=== PATIENT | male | born 1965 | race Caucasian/White ===

== ENCOUNTER → 2019-07-26 19:58 | Outpatient (CLI) | payer OTHER, SELFPAY | LOC: SL 19:58 | PROVIDERS: Family Provider Family Medicine; PCP Family Medicine | DX: G47.10 Hypersomnia, unspecified (principal); R06.83 Snoring | CPT/HCPCS: 95810 ==

== ENCOUNTER 2019-08-12 00:53 | Emergency (ER) | payer OTHER, SELFPAY ==
[2019-08-12 00:54] VITALS: BP 193/123; PULSE 130; RESP 34; TEMP 37.5; O2SAT 96; BMI 28.3
[2019-08-12 00:58] VITALS: O2SAT 97
[2019-08-12 01:22] VITALS: TEMP 37.2
--- NOTE | 2019-08-12 01:27 | RAD_ITS ---
STUDY: X-RAY CHEST REASON FOR EXAM: Male, 53 years old. CHRONIC SOB -- HX OF COPD TECHNIQUE: PA and lateral views of the chest. COMPARISON: None. FINDINGS: The lungs are normally expanded with the trace amount of fluid within the right minor fissure and subtle airspace disease within the right lower lobe concerning for pneumonia. Remainder of the lung shelton are clear. There is no demonstrated pleural abnormality. Normal size heart. Normal mediastinum and albert. Normal visualized pulmonary arteries. Normal visualized aortic arch and descending thoracic aorta. Normal visualized thoracic spine. Normal visualized ribs, clavicles, and shoulders. There is no demonstrated abnormality of the visualized soft tissue structures of the upper abdomen. RAD/Chest PA and Lateral IMPRESSION: Right infrahilar pneumonia, likely right lower lobe. Clinical correlation recommended. Electronically Signed: Sheri Borden MD at 2:44 EST , Service support ,
[2019-08-12 01:41] LABS: Absolute Lymphocyte Count 0.44 X10^3/uL (0.83-4.51); Absolute Neutrophil Count 10.2 X10^3/uL (2.0-7.7); Basophil# 0.05 X10^3/uL; Basophil% 0.4 % (0-1); Eosinophil# 0.04 X10^3/uL; Eosinophils% 0.3 % (0-5); Hematocrit 45.4 % (40-54); Hemoglobin 15.3 g/dL (13.0-16.5); Lymphocyte # 0.44 X10^3/ul (4.0); Lymphocyte % 3.8 % (19-41); Mean Corp Hgb Conc 33.7 g/dL (32-36); Mean Platelet Vol. 8.8 fl (6.2-12.0); Monocyte# 0.71 X10^3/uL; Monocyte% 6.2 % (0-10); NRBC Flagged by Analyzer 0 % (0-5); Neutrophil # 10.21 X10^3/uL (2.7-7.7); POSITIVE DIFFERENTIAL YES; Platelet Count 375 K/mm3 (150-450); RBC Distribution Width CV 12.4 % (11.6-14.6); RBC Distribution Width SD 43.6 fl (35.1-43.9); Red Blood Count 4.78 M/mm3 (4.6-6.2); White Blood Count 11.5 K/mm3 (4.4-11.0)
[2019-08-12 01:46] LABS: Differential Indicated SCAN CRITERIA MET
--- NOTE | 2019-08-12 01:52 | ED.DCSUM_ITS ---
- ER Visit Summary Date of Service: 08/12/19 Chief Complaint: Shortness of breath History of Present Illness: The patient is a 53 M who presents with shortness of breath that has been gradually getting worse over the past 3 weeks. Patient has been to the urgent care twice for this. Patient states the first time he was put on prednisone which made things worse. Patient states the second time he was given albuterol aerosols which also made his breathing worse. Patient states his breathing is worse with any exertion and also with lying flat on his back. Patient admits to a cough with some sputum production. Patient does not know the color of the sputum. Patient also admits to some rhinorrhea and sore throat. Physical Examination: Vital signs show an elevated blood pressure of 193/123 with a tachycardia of 130 and a tachypnea of 34. Pulse oximeter is 97% on nasal cannula. Patient is afebrile. Oral mucosa is pink and moist. Neck is supple. Trachea is midline. There is no JVD. Heart was regular rate and rhythm. Lungs were diminished bilaterally. There is adequate respiratory effort. There are no retractions noted. Abdomen is soft. Bowel sounds are normal. There is no tenderness. Cranial nerves II through XII are intact. There are no focal motor or sensory deficits noted. Test Results: EKG showed sinus tachycardia with a rate of 120. There are no acute ST or T wave changes. CBC shows a mild leukocytosis of 11.5. Comprehens teja metabolic profile was essentially within normal limits. Troponin was normal. Influenza swab was positive for influenza A. Emergency Department Course and Treatment: Since the patient stated that aerosols make his breathing worse, he was not given any aerosols here. Patient maintains oxygen saturation of 92% on room air. Patient was given a dose of Tamiflu and a dose of Levaquin here. Patient was given prescriptions for the same. Patient was instructed to follow-up with his primary care physician in 5 to 7 days. Patient understood and was agreeable with the plan. All questions were answered. Disposition: Discharge home Impression: 1. Pneumonia 2. Influenza A This note was generated with [employer] software. It may contain incorrect words, spelling, and punctuation that were not noted in review of the chart prior to signing ED Disposition - Plan for ED Patient: Disposition: Home or Assisted Living Diagnosis: Pneumonia, Influenza A Instructions: INFLUENZA (Adult), PNEUMONIA (Adult) Prescriptions: Levofloxacin [Levaquin] 750 mg PO DAILY #6 tab Prescription Printed Oseltamivir Phosphate [Tamiflu] 75 mg PO BID #10 cap Prescription Printed Referrals: Ata Avelar MD [Primary Care Provider] - 5-7 Days
[2019-08-12 02:03] LABS: ALB/GLOB Ratio 0.8 RATIO (0.9-2.4); AST(SGOT) 32 U/L (15-37); Alanine Aminotransfer ALT/SGPT 76 U/L (16-61); Albumin, Serum 3.7 g/dL (3.2-5.0); Alkaline Phosphatase 86 U/L (45-117); Anion Gap 7 (5-15); BUN 9 mg/dL (7-18); BUN/Creat Ratio 9.4 RATIO (10-20); Calcium,Total 9.8 mg/dL (8.5-10.1); Chloride 99 mmol/L (98-107); Creatinine, Serum 0.96 mg/dL (0.70-1.30); EST Glomerular Filtration Rate 88 mL/min (>60); Est Glom Filt Rate - Afr Amer 106 mL/min (>60); Estimated Creatinine Clearance 79.19 ml/min; Globulin 4.6 g/dL (2.2-4.2); Glucose 141 mg/dL (74-106); Protein, Total 8.3 g/dL (6.4-8.2); Sodium Level 134 mmol/L (136-145)
[2019-08-12 02:05] VITALS: BP 159/103; O2SAT 99
[2019-08-12 02:07] LABS: Differential Comment SCANNED
[2019-08-12] MEDS: Oseltamivir Phosphate 75 MG Capsule PO (02:09)
[2019-08-12] MEDS: levoFLOXacin 750 MG Tablet PO (03:06)
[2019-08-12 03:07] VITALS: BP 136/90; PULSE 117; RESP 16; O2SAT 92
[2019-08-12 03:13] VITALS: BP 136/90; PULSE 78; RESP 17; O2SAT 92
--- NOTE | 2019-08-12 13:52 | EKG12_ITS ---
Test Reason : SOB Blood Pressure : / mmHG Vent. Rate : 120 BPM Atrial Rate : 120 BPM P-R Int : 138 ms QRS Dur : 082 ms QT Int : 304 ms P-R-T Axes : 079 064 060 degrees QTc Int : 429 ms Sinus tachycardia Otherwise normal ECG Confirmed by NICOLETTE COONEY MD ([id number]), associate entertainment editor FLAQUITO WILLIAMSON ([id number]) on 08/14/2019 1:01:57 PM Referred By: TONEY Confirmed By:NICOLETTE COONEY MD
== END 2019-08-12 03:29 | disposition home or self-care (01) ==
PROVIDERS: Emergency Provider Emergency Medicine; PCP Family Medicine
DX: J18.9 Pneumonia, unspecified organism (principal); J10.1 Influenza due to other identified influenza virus with other respiratory manifestations; Z87.891 Personal history of nicotine dependence
CPT/HCPCS: 71046; 80053; 84484; 85025; 87804; 93005; 99285; A4216

== ENCOUNTER 2019-08-25 18:04 | Inpatient (IN) | payer OTHER, SELFPAY ==
[2019-08-25] VITALS (13 sets, daily range): BP systolic 129–138; BP diastolic 84–96; PULSE 94–110; RESP 12–31; TEMP 36.4–36.9; O2SAT 92–97; BMI 25.6; BMI 25.7
--- NOTE | 2019-08-25 19:05 | EKG12_ITS ---
Test Reason : SOB Blood Pressure : / mmHG Vent. Rate : 098 BPM Atrial Rate : 098 BPM P-R Int : 136 ms QRS Dur : 082 ms QT Int : 332 ms P-R-T Axes : 075 073 055 degrees QTc Int : 423 ms Normal sinus rhythm Normal ECG Confirmed by SARAY PEACE ([id number]), editor at large WILL MCNEILL ([id number]) on 08/27/2019 1:57:59 PM Referred By: HUMBERTO SUTTON Confirmed By:SARAY PEACE
[2019-08-25 19:14] LABS: Absolute Lymphocyte Count 1.13 X10^3/uL (0.83-4.51); Absolute Neutrophil Count 6.9 X10^3/uL (2.0-7.7); Basophil# 0.04 X10^3/uL; Basophil% 0.5 % (0-1); Eosinophil# 0.01 X10^3/uL; Eosinophils% 0.1 % (0-5); Hemoglobin 16.5 g/dL (13.0-16.5); Lymphocyte # 1.13 X10^3/ul (4.0); Lymphocyte % 13.2 % (19-41); Mean Corp Hgb Conc 33.7 g/dL (32-36); Mean Corpuscular Hgb 32.1 pg (27.0-32.0); Mean Corpuscular Volume 95.3 fL (80-94); Mean Platelet Vol. 9.1 fl (6.2-12.0); Monocyte# 0.43 X10^3/uL; NRBC Flagged by Analyzer 0 % (0-5); Neutrophil % 80.8 % (47-70); Platelet Count 352 K/mm3 (150-450); RBC Distribution Width CV 12.2 % (11.6-14.6); RBC Distribution Width SD 43.4 fl (35.1-43.9); Red Blood Count 5.14 M/mm3 (4.6-6.2); White Blood Count 8.5 K/mm3 (4.4-11.0)
[2019-08-25] MEDS: Albuterol 2.5 MG/3 ML VIAL.NEB. INHALATION ×3 (19:26→21:37)
[2019-08-25] MEDS: Ipratropium/Albuterol Sulfate 3 ML AMPUL.NEB INHALATION (19:26)
[2019-08-25 19:28] LABS: Lactic Acid 1.4 mmol/L (0.4-1.9)
[2019-08-25 19:30] LABS: Anion Gap 8 (5-15); BUN 14 mg/dL (7-18); BUN/Creat Ratio 12.5 RATIO (10-20); Calcium,Total 8.7 mg/dL (8.5-10.1); Chloride 104 mmol/L (98-107); Creatinine, Serum 1.12 mg/dL (0.70-1.30); EST Glomerular Filtration Rate 73 mL/min (>60); Est Glom Filt Rate - Afr Amer 89 mL/min (>60); Estimated Creatinine Clearance 67.88 ml/min; Glucose 137 mg/dL (74-106); Potassium 4.3 mmol/L (3.5-5.1); Sodium Level 141 mmol/L (136-145)
[2019-08-25] MEDS: 0.9% Normal Saline 1,000 ML 150 ML IV (19:39)
[2019-08-25] MEDS: MethylPREDNISolone 125 MG/2 ML Vial IV (19:39)
--- NOTE | 2019-08-25 19:50 | RAD_ITS ---
STUDY: X-RAY CHEST REASON FOR EXAM: Male, 53 years old. EXTREME DYSPNEA. HX OF COPD. TECHNIQUE: 2 views COMPARISON: Prior chest radiograph of August 12, 2019 FINDINGS: Negative for pneumothorax or pleural effusion. Hyperexpansion increased from prior exam. Negative for new consolidation, focal atelectasis or mass density. Normal size heart. Normal mediastinum and albert. Normal visualized pulmonary arteries. Normal visualized aortic arch and descending thoracic aorta. Mild degenerative changes of the thoracic spine. Normal visualized ribs, clavicles, and shoulders. There is no demonstrated abnormality of the visualized soft tissue structures of the upper abdomen. RAD/Chest PA and Lateral IMPRESSION: Increased hyperexpansion and generalized findings of COPD without new consolidation, focal atelectasis, pleural effusion or cardiomegaly. Electronically Signed: Shona Contreras MD at 20:30 EST , Service support ,
--- NOTE | 2019-08-25 21:15 | PCM.HP.STD ---
Problem List (1) COPD exacerbation Status: Acute History of Present Illness Date of Admission: 08/25/19 Chief Complaint: sob The patient is a 53 year old M with a significant history of former smoker; COPD and who was diagnosed with influenza A and pneumonia about 2 weeks ago and was on Tamiflu and Levaquin presenting with persistent shortness of breath. Per patient has been off work for about 3 weeks because of symptoms above. Associated with symptoms is productive cough of yellowish sputum; and wheezes. At the emergency department because patient was having increased work of breathing he was placed on BiPAP. Past Medical History Medical History: Medical History (Last Updated 08/26/19 @ 02:[address] Braeden Craig MD) COPD (chronic obstructive pulmonary disease) (Chronic) J44.9 Allergies codeine Allergy (Verified 08/25/19 18:06) Unknown Penicillins Allergy (Verified 08/25/19 18:06) Unknown Home Medications: Ambulatory Orders Medication Instructions Recorded Aspirin 325 mg PO DAILY 06/30/15 Albuterol Inhaler [Ventolin Hfa 1 puff INHALATION Q6H PRN PRN 01/05/16 (SP)] Blue-Green Algae [Spirulina] 500 mg PO DAILY 01/05/16 Diphenhydramine HCl [Benadryl 25 mg PO QHS 01/05/16 Allergy] Ginkgo Biloba 120 mg PO DAILY 01/05/16 Umeclidinium Brm/Vilanterol Tr 1 each IH DAILY 01/05/16 [Anoro Ellipta 62.5-25 Mcg INH] Fluticasone/Umeclidin/Vilanter 1 ea IH DAILY 08/25/19 [Trelegy Ellipta 100-62.5-25] Ginseng 250 mg PO DAILY 08/25/19 Guaifenesin [Mucinex] 1,200 mg PO BID 08/25/19 Multivitamin [Once Daily] 1 ea PO DAILY 08/25/19 Mv-Min/Vit C/Glut/Lysine/Hc124 1 ea PO DAILY 08/25/19 [Airborne Tablet Chewable] Nicotine Polacrilex [Nicorette] 2 mg BC DAILY PRN 08/25/19 Omeprazole 40 mg PO DAILY 08/25/19 Prednisone 10 mg PO DAILY 08/25/19 Surgical History: - - Surgery for brain aneurysm repair. Lives: Spouse/ Significant Other Smoking Status: Former smoker Alcohol: Occasional - *Family History Maternal History Items: Diabetes, - - His mother had hearing loss. Paternal History Items: - - Denies any pertinent medical history. Review of Systems Constitutional: Denies: Chills, Fever, Weight Change HEENT: Denies: Head Aches, Sinus Congestion, Sinus Drainage Cardiovascular: Denies: Chest Pain, Palpitations Respiratory: Reports: Cough, Shortness of Breath, Sputum production, Wheezing Gastrointestinal: Denies: Abdominal Pain, Nausea, Vomiting Genitourinary: Denies: Dysuria Musculoskeletal: Denies: Joint Pain, Joint Tenderness Skin: Denies: Rash, Wounds Neurological: Denies: Numbness, Tingling, Focal weakness Psychiatric: Denies: Anxiety, Depression, Homicidal Ideations, Suicidal Ideations Hematologic/ Lymphatic: Denies: Easy Bruising, Easy Bleeding VTE Information - Inpt Only VTE Present on Admission: No VTE Mechan Device Prophylaxis: None VTE Pharm Prophylaxis ordered?: Yes Patient Problems: Active and Suspected Problems COPD exacerbation (Acute) - Physical Exam Vitals/I&O's: Vital Signs Temp Pulse Resp BP Pulse Ox 98.3 F 98 26 H 129/96 H 97 08/25/19 20:34 08/25/19 20:34 08/25/19 20:34 08/25/19 20:34 08/25/19 20:34 Oxygen Flow Rate (L/min) 4 Oxygen Delivery Method Bi-pap Weight: 69.853 kg Body Mass Index (BMI) 25.6 General: Alert, Oriented x3, Cooperative HEENT: Atraumatic, PERRLA, EOMI, Normocephalic Neck: Supple, No JVD, Negative Carotid Bruits, Trachea Midline Lungs: Diminished, Using Accessory Muscles, - - On BiPAP at the time of examination. Cardiovascular: Regular rate, Normal S1, Normal S2, No murmurs Abdomen: Bowel Sounds Present, Soft, Non Tender Extremities: No edema, Capillary Refill Less than 3 Seconds Skin: No rashes, No breakdown Musculoskeletal: No Tenderness to Palpation of Joints or Extremities Neurological: Cranial nerves II-XII grossly intact Psych/Mental Status: Anxious Laboratory Results 08/25/19 18:16: WBC 8.5, RBC 5.14, Hgb 16.5, Hct 49.0, MCV 95.3 H, MCH 32.1 H, MCHC 33.7, RDW Std Deviation 43.4, RDW Coeff of [place] 12.2, Plt Count 352, MPV 9.1, Immature Gran % (Auto) 0.400, Neut % (Auto) 80.8 H, Lymph % (Auto) 13.2 L, [place] % (Auto) 5.0, Eos % (Auto) 0.1, Baso % (Auto) 0.5, Absolute Neuts (auto) 6.9, Absolute Lymphs (auto) 1.13, Nucleated RBC % 0 08/25/19 18:16: Sodium 141, Potassium 4.3, Chloride 104, Carbon Dioxide 29.0, Anion Gap 8, BUN 14, Creatinine 1.12, Estim Creat Clear Calc 67.88, Est GFR (MDRD) Af Amer 89, Est GFR (MDRD) Non-Af 73, BUN/Creatinine Ratio 12.5, Glucose 137 H, Calcium 8.7, Troponin I < 0.015 08/25/19 18:16: Lactic Acid 1.4 Current Medications Sodium Chloride () 1,000 mls @ 150 mls/hr IV .Q6H40M ONE Stop: 08/26/19 01:43 Last Admin: 08/25/19 19:39 Dose: 150 mls/hr Documented by: Assessment/Plan All Active Problems COPD exacerbation (Acute) The patient is a 53 year old M with a significant history of former smoker; and COPD and who was diagnosed with influenza A and pneumonia about 2 weeks ago and was on Tamiflu and Levaquin presenting with persistent shortness of breath; wheezes productive cough yellow sputum and requiring BiPAP consistent with acute respiratory failure secondary to exacerbation of COPD. Acute respiratory failure secondary to exacerbation of COPD. Impression of chest x-ray: Increased hyperexpansion and generalized findings COPD without new consolidation, focal atelectasis, pleural effusion or cardiomegaly. Chest x-ray was independently reviewed. I agree with the radiologist interpretation. Scheduled DuoNeb Albuterol as needed Solu-Medrol scheduled. Hold home prednisone. Azithromycin ordered Continue BiPAP. Get ABG. Monitor BMP and CBC Admission is continued DVT prophylaxis Subcutaneous Lovenox Code Visit Inpatient E&M: 22085 Init Hosp L3
--- NOTE | 2019-08-25 21:27 | ED.VISSUMM ---
- ER Visit Summary Date of Service: 08/25/19 Chief Complaint: Hartness of breath] History of Present Illness: The patient is a 53 M [presents the emergency department complaint shortness of breath that started 2 weeks ago. Patient states that he was treated for pneumonia and influenza 3 weeks ago and was on Tamiflu as well as Levaquin. Patient does not feel like he is got much better states that initially he was better for the first 3 or 4 days but then his symptoms of dyspnea continue to worsen. Patient states he cannot walk 110 feet without feeling extremely short of breath. Patient continues to have a cough that is mostly nonproductive at this point. At times he will have small amount of yellow phlegm. He does have history of COPD. He is not on home oxygen. Patient does see a transit mix operator by the name of Dr. Langley. Patient denies recent travel or surgery. Denies PE risk factors.] Physical Examination: [HEENT-PERRLA, EOMI. Cranial nerves II through XII grossly intact. TMs clear. Mucous membranes moist. No adenopathy. Cardiovascular-regular and tachycardic. No murmurs auscultated. Lungs-diminished bilaterally with faint expiratory wheezes bilaterally. Patient is tachypneic. Patient has conversational dyspnea. Abdomen-normoactive bowel sounds, soft, nontender, no rebound or rigidity, no peritoneal signs. Extremities-intact ?4, normal range of motion, normal pulses, atraumatic] Test Results: [EKG obtained arrival shows sinus rhythm with a ventricular rate of 98 bpm with no acute ST segment changes. CBC with differential showed a white count of 8.5, hemoglobin 16, hematocrit 49, platelets 352. Chemistries unremarkable. Troponin is less than 0.015. Lactate was 1.4. Chest x-ray showed COPD without evidence of consolidation.] Emergency Department Course and Treatment: [He was treated with DuoNeb aerosol and albuterol aerosols. Patient was given Solu-Medrol 125 mg IV. Patient's dyspnea continued to worsen and he was placed on BiPAP. Patient symptoms improve dramatically with the BiPAP.] Treatment Plan: [Admit] Disposition: [Admit] Impression: [COPD exacerbation] Respiratory distress This note was generated with [employer] dictation software. It may contain incorrect words, spelling, and punctuation that were not noted in review of the chart prior to signing ED Disposition - Plan for ED Patient: Referrals: Ata Avelar MD [Primary Care Provider] -
[2019-08-25] MEDS: LORazepam 2 MG/ML Syringe 1 MG IV (21:52)
[2019-08-25] MEDS: DiphenhydrAMINE 25 MG Capsule PO (23:35)
[2019-08-25] MEDS: guaiFENesin 1,200 MG Tablet 1200 MG PO (23:35)
[2019-08-25 23:40] LABS: Allen Test POS; Base Excess 2 mmol/L (-2 to +2); Bicarbonate 27.7 mmol/L (22-26); Blood Gas Specimen Type ART; O2 Delivery Device Nasal Can; PO2 80 mmHG (75-100); SITE R Radial; SO2 95 % (95-99); Time Given 2330; Total Carbon Dioxide 29 mmol/L; pCO2 47.4 mmHg (35-45); pH 7.37 (7.35-7.45)
[2019-08-26] VITALS (17 sets, daily range): BP systolic 129–133; BP diastolic 73–95; PULSE 84–115; RESP 12–26; TEMP 36.7–36.9; O2SAT 94–98
[2019-08-26] MEDS: 0.9% Saline Lock 10 ML Syringe IV ×3 (06:12→21:06)
[2019-08-26] MEDS: Ipratropium/Albuterol Sulfate 3 ML AMPUL.NEB INHALATION ×5 (07:14→22:56)
[2019-08-26 07:21] LABS: Absolute Lymphocyte Count 0.75 X10^3/uL (0.83-4.51); Absolute Neutrophil Count 7.2 X10^3/uL (2.0-7.7); Basophil# 0.01 X10^3/uL; Basophil% 0.1 % (0-1); Hematocrit 44.1 % (40-54); Hemoglobin 14.7 g/dL (13.0-16.5); Lymphocyte # 0.75 X10^3/ul (4.0); Lymphocyte % 9.1 % (19-41); Mean Corp Hgb Conc 33.3 g/dL (32-36); Mean Corpuscular Hgb 32.2 pg (27.0-32.0); Mean Corpuscular Volume 96.5 fL (80-94); Mean Platelet Vol. 8.7 fl (6.2-12.0); Monocyte# 0.24 X10^3/uL; Monocyte% 2.9 % (0-10); NRBC Flagged by Analyzer 0 % (0-5); Neutrophil # 7.22 X10^3/uL (2.7-7.7); Neutrophil % 87.5 % (47-70); Platelet Count 285 K/mm3 (150-450); RBC Distribution Width CV 12.2 % (11.6-14.6); RBC Distribution Width SD 43.6 fl (35.1-43.9); Red Blood Count 4.57 M/mm3 (4.6-6.2); White Blood Count 8.3 K/mm3 (4.4-11.0)
[2019-08-26 07:49] LABS: Anion Gap 5 (5-15); BUN 12 mg/dL (7-18); BUN/Creat Ratio 12.5 RATIO (10-20); Calcium,Total 8.2 mg/dL (8.5-10.1); Chloride 105 mmol/L (98-107); Creatinine, Serum 0.96 mg/dL (0.70-1.30); EST Glomerular Filtration Rate 88 mL/min (>60); Est Glom Filt Rate - Afr Amer 106 mL/min (>60); Estimated Creatinine Clearance 79.19 ml/min; Glucose 137 mg/dL (74-106); Potassium 4.6 mmol/L (3.5-5.1); Sodium Level 140 mmol/L (136-145)
[2019-08-26] MEDS: guaiFENesin 1,200 MG Tablet 1200 MG PO ×2 (08:25→21:04)
[2019-08-26] MEDS: LORazepam 1 MG Tablet PO ×2 (08:25→18:39)
[2019-08-26] MEDS: Pantoprazole Sodium 40 MG Tablet PO (08:26)
[2019-08-26] MEDS: Aspirin 325 MG Tablet PO (08:26)
[2019-08-26] MEDS: Multivitamins,Therapeutic Tablet 1 TABLET PO (08:26)
[2019-08-26] MEDS: Enoxaparin 40 MG/0.4 ML Syringe SC (08:27)
--- NOTE | 2019-08-26 13:55 | CASEMGMT ---
RN CM Assessment Introduced role of RN CM to patient and patient Sirisha at bedside.? Patient is alert, oriented and able?to participate in RN CM Assessment. ?Care providers, pharmacy, and demographics verified. Presentation: Dz with Influenza A & PNA approx 2weeks ago, on Tamiflu. CC: Increased work of breathing, productive cough, wheezes. 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 This securities underwriter explained qualifying home O2 criteria and provided an in network list of DME companies. States [facility] as a preference. Made aware not sure if his insurance would cover the Inogen and he would have to s/w his litigation support analyst and DME company to see if he qualifies. States smoked since 15yo approx 1/2PPD-3PPD. Quit 5-6years ago. PCP: Ata Avelar Specialists: Puldavin MADDOX Preferred Pharmacy: [facility] Insurance: MMO Rx Benefit: Yes? ?LNOK: Sirisha Duke LW/HPOA: None, states would like both information and to complete advanced directives during this admission. Information with rack card provided. ELODIA Jimenez made aware. Living Arrangements:? Lives with and 18yo Dtr in a 2SH. Bedroom on first fl. 3 steps to enter home. ADL?s: Independently with ambulation and ADLs Transportation: Both patient and drive DME: None HHC: Past SNF: None Goal: Home and possible home O2, see above issue. Denies any further needs, concerns, issues or questions with DC planning at this time. Aware CM remains available for any emerging needs. DC PLAN: Home with possible home O2. ROCHELLE Cohen
--- NOTE | 2019-08-26 14:36 | CASEMGMT ---
Social Work SW met with pt and assisted pt in completing health care power of mergers and acquisitions attorney in which he named his . SW discussed Living will with pt and he is uncertain if he wants to complete this at this time. SW left pt with written information regarding the Living Will. Copy of HCPOA placed on chart and original given to pt. YULI Ballesteros
[2019-08-26 19:36] LABS: Bedside Glucose 214 mg/dL (70-110)
--- NOTE | 2019-08-26 19:37 | PN_ITS ---
Patient Problems: Active and Suspected Problems (Last Updated 08/26/19 @ 02:[address] Braeden Craig MD) COPD exacerbation (Acute) Subjective: Patient was seen and examined today, he appears comfortable on nasal cannula oxygen at this time. Patient has no complaints of any chest discomfort or increased shortness of breath. - Physical Exam Vitals/I&O's: Vital Signs Temp Pulse Resp BP Pulse Ox 98.5 F 112 H 26 H 131/75 H 94 08/26/19 16:20 08/26/19 19:12 08/26/19 19:12 08/26/19 16:20 08/26/19 19:14 Oxygen Flow Rate (L/min) 2.5 Oxygen Delivery Method Nasal Cannula Weight: 70.1 kg Body Mass Index (BMI) 25.7 Intake and Output for Last 24 Hours 08/24/19 08/25/19 08/26/19 23:59 23:59 23:59 Intake Total 502.5 / 502.5 1944.75 / 1944. Balance 502.5 / 502.5 / General: Alert, Oriented x3, Cooperative, No apparent distress, Well developed, Well nourished HEENT: Atraumatic, PERRLA, EOMI, Normocephalic Oral: Moist Mucosa Neck: Supple, No JVD, Trachea Midline, Thyroid Normal Size and Texture Lungs: Clear to auscultation, No rhonchi, No wheeze, No rales, Diminished Cardiovascular: Regular rate, Regular Rhythm, Normal S1, Normal S2, No murmurs, PMI Normal, No rub noted, No Gallop Abdomen: Bowel Sounds Present, Soft, Non Tender, Non-Distended Extremities: No clubbing, No cyanosis, No edema, Capillary Refill Less than 3 Seconds Skin: No rashes, No breakdown Musculoskeletal: No Tenderness to Palpation of Joints or Extremities Neurological: Cranial nerves II-XII grossly intact, Neuro grossly intact, Sensory exam intact to light touch and pain, Coordination normal Psych/Mental Status: Normal Affect, Appropriate, Alert and oriented to time, place, person, mood and affect Laboratory Results 08/25/19 23:35: Specimen Type ART, Sample Site R Radial, pH 7.37, Bicarbonate Actual 27.7 H, POC Total CO2 29, Base Excess 2, O2 Saturation 95, ABG pCO2 47.4 H, ABG pO2 80, Sonido Test POS, O2 Delivery Device Nasal Can, Liter Flow 2.0, Blood Gas Notified Whom HOSP , Blood Gas Notified Time 23308/26/19 07:02: WBC 8.3, RBC 4.57 L, Hgb 14.7, Hct 44.1, MCV 96.5 H, MCH 32.2 H, MCHC 33.3, RDW Std Deviation 43.6, RDW Coeff of [place] 12.2, Plt Count 285, MPV 8.7, Immature Gran % (Auto) 0.400, Neut % (Auto) 87.5 H, Lymph % (Auto) 9.1 L, [place] % (Auto) 2.9, Eos % (Auto) 0.0, Baso % (Auto) 0.1, Absolute Neuts (auto) 7.2, Absolute Lymphs (auto) 0.75 L, Nucleated RBC % 0 08/26/19 07:02: Sodium 140, Potassium 4.6, Chloride 105, Carbon Dioxide 30.0, Anion Gap 5, BUN 12, Creatinine 0.96, Estim Creat Clear Calc 79.19, Est GFR (MDRD) Af Amer 106, Est GFR (MDRD) Non-Af 88, BUN/Creatinine Ratio 12.5, Glucose 137 H, Calcium 8.2 L 08/26/19 19:27: POC Glucose 214 H Current Medications Acetaminophen (Tylenol) 650 mg PO Q6H PRN PRN PRN Reason: Pain Score 1-10/Temp > 100.7 F Albuterol Sulfate (Ventolin Aerosols) 2.5 mg INHALATION Q2H PRN PRN PRN Reason: Shortness of Breath/Wheezing Albuterol/Ipratropium (Duoneb) 3 ml INHALATION Q4HWA.RT PENDING SALE TO [facility] Last Admin: 08/26/19 19:12 Dose: 3 ml Documented by: [facility]) [facility] Last Admin: 08/26/19 08:26 Dose: 325 mg Documented by: Diphenhydramine HCl (Benadryl) 25 mg PO QHS PENDING SALE TO [facility] Last Admin: 08/25/19 23:35 Dose: 25 mg Documented by: Enoxaparin Sodium (Lovenox) 40 mg SC DAILY PENDING SALE TO [facility] Last Admin: 08/26/19 08:27 Dose: 40 mg Documented by: Glucagon () 1 mg IM .X1 PRN PRN Reason: Hypoglycemia Guaifenesin (Mucinex) 1,200 mg PO BID PENDING SALE TO [facility] Last Admin: 08/26/19 08:25 Dose: 1,200 mg Documented by: Azithromycin 500 mg/ Dextrose 255 mls @ 250 mls/hr IV Q24@2200 PENDING SALE TO [facility] Stop: 08/27/19 23:02 Last Infusion: 08/26/19 00:45 Dose: Infused Documented by: Dextrose (Dextrose 10%-Water) 250 mls @ 999 mls/hr IV .Q16M PRN; Protocol PRN Reason: HYPOGLYCEMIA Lorazepam (Ativan) 1 mg PO Q8H PRN PRN PRN Reason: ANXIETY Last Admin: 08/26/19 18:39 Dose: 1 mg Documented by: Melatonin (Melatonin) 3 mg PO QHS PRN PRN PRN Reason: INSOMNIA Methylprednisolone (Solu-Medrol) 40 mg IV Q8 PENDING SALE TO [facility] Last Admin: 08/26/19 13:37 Dose: 40 mg Documented by: Multivitamins (Multivitamin) 1 tablet PO DAILYCM PENDING SALE TO [facility] Last Admin: 08/26/19 08:26 Dose: 1 tablet Documented by: Nutritional Formula (Lactose Free) (Ensure Enlive) 120 ml PO 4X/DAY PENDING SALE TO [facility] Last Admin: 08/26/19 17:14 Dose: Not Given Documented by: Ondansetron HCl (Zofran) 4 mg IV Q8H PRN PRN PRN Reason: NAUSEA/VOMITING Pantoprazole Sodium (Protonix) 40 mg PO DAILY PENDING SALE TO [facility] Last Admin: 08/26/19 08:26 Dose: 40 mg Documented by: Sodium Chloride () 10 - 40 ml IV UD PRN PRN Reason: SALINE FLUSH Last Admin: 08/26/19 13:38 Dose: 10 ml Documented by: Medical Necessity - Tobacco Use Smoking Status: Former smoker Assessment/Plan All Active Problems (Last Updated 08/26/19 @ 02:[address] Braeden Craig MD) COPD exacerbation (Acute) #1 acute exacerbation of COPD-continue present treatment at this time, patient will be reevaluated tomorrow #2 acute hypoxic respiratory failure-patient was on BiPAP off and on since his admission, currently is on nasal cannula O2 #3 recent influenza A infection 08/12/2019 Code Visit Inpatient E&M: 46229 Subs Hosp L2
[2019-08-26] MEDS: DiphenhydrAMINE 25 MG Capsule PO (21:03)
[2019-08-27] VITALS (15 sets, daily range): BP systolic 114–134; BP diastolic 74–81; PULSE 79–110; RESP 12–24; TEMP 36.3–36.6; O2SAT 87–98
[2019-08-27] MEDS: Hydrocortisone 2.5% Crm 1 APPLIC TOPICAL (03:02)
[2019-08-27] MEDS: LORazepam 1 MG Tablet PO ×3 (05:04→21:39)
[2019-08-27] MEDS: 0.9% Saline Lock 10 ML Syringe IV ×2 (05:06→21:44)
[2019-08-27] MEDS: Ipratropium/Albuterol Sulfate 3 ML AMPUL.NEB INHALATION ×4 (06:44→19:25)
[2019-08-27] MEDS: Aspirin 325 MG Tablet PO (08:24)
[2019-08-27] MEDS: Multivitamins,Therapeutic Tablet 1 TABLET PO (08:24)
[2019-08-27] MEDS: Enoxaparin 40 MG/0.4 ML Syringe SC (08:25)
[2019-08-27] MEDS: guaiFENesin 1,200 MG Tablet 1200 MG PO ×2 (08:25→21:38)
[2019-08-27] MEDS: Pantoprazole Sodium 40 MG Tablet PO (08:26)
--- NOTE | 2019-08-27 12:05 | CASEMGMT ---
Social Work Pt presenting with diagnosis of COPD exacerbation. Palliative Medicine Screening Tool completed with score of 2. No indication for Palliative referral at this time. YULI Ballesteros
--- NOTE | 2019-08-27 15:32 | NURSING ---
pt up to amb in halls with port o2 tank at 3l. walked around back gee loop and very sob and desated on 3l to 87%. took 2 min to get back up to 91-92% once back to room. dr. adames aware and will recheck sander. pt c/o cant breathe through nose and refusing ocean spray or flonase to try. stated, that stuff runs straight down my throat and i cant stand the smell and taste of that
[2019-08-27] MEDS: Mag Hydrox/Al Hydrox/Simeth 30 ML UDC PO (18:00)
--- NOTE | 2019-08-27 19:26 | PN_ITS ---
Patient Problems: Active and Suspected Problems (Last Updated 08/26/19 @ 02:[address] Braeden Craig MD) COPD exacerbation (Acute) Subjective: Patient was seen and examined today, he still appears short of breath on any ambulation despite wearing oxygen. Patient's pulse ox dipped to 84% on 3 L while ambulating today. Patient stated he was coughing up white sputum. 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 Patient denies any chest pain today. Patient denies any fever or chills. I told the patient I thought it was key that I have pulmonary medicine see the patient during his hospitalization, patient agreed. - Physical Exam Vitals/I&O's: Vital Signs Temp Pulse Resp BP Pulse Ox 97.5 F L 110 H 22 H 126/81 H 87 08/27/19 09:00 08/27/19 15:36 08/27/19 15:10 08/27/19 09:00 08/27/19 15:31 Oxygen Flow Rate (L/min) [ 3 AMBULATION with Oxygen] Oxygen Flow Rate (L/min) 3.5 Oxygen Delivery Method Nasal Cannula Weight: 70.1 kg Body Mass Index (BMI) 25.7 Intake and Output for Last 24 Hours 08/25/19 08/26/19 08/27/19 23:59 23:59 23:59 Intake Total 502.5 / 502.5 2200.75 / 2200.75 1235 / 1235 Output Total 400 / 400 Balance 502.5 / 502.5 2200.75 / 2200.75 835 / 835 General: Alert, Oriented x3, Cooperative, No apparent distress, Well developed HEENT: Atraumatic, PERRLA, EOMI, Normocephalic Oral: Moist Mucosa Neck: Supple, No JVD, Trachea Midline, Thyroid Normal Size and Texture Lungs: Clear to auscultation, No rhonchi, No wheeze, No rales, Diminished Cardiovascular: Regular rate, Regular Rhythm, Normal S1, Normal S2, No murmurs, PMI Normal, No rub noted Abdomen: Bowel Sounds Present, Soft, Non Tender, Non-Distended Extremities: No clubbing, No cyanosis, No edema, Capillary Refill Less than 3 Seconds Skin: No rashes, No breakdown Musculoskeletal: No Tenderness to Palpation of Joints or Extremities Neurological: Cranial nerves II-XII grossly intact, Neuro grossly intact, Sensory exam intact to light touch and pain, Coordination normal Psych/Mental Status: Normal Affect, Appropriate, Alert and oriented to time, place, person, mood and affect Laboratory Results 08/26/19 19:27: POC Glucose 214 H Current Medications Acetaminophen (Tylenol) 650 mg PO Q6H PRN PRN PRN Reason: Pain Score 1-10/Temp > 100.7 F Al Hydroxide/Mg Hydroxide (Mylanta Ii) 30 ml PO Q4H PRN PRN PRN Reason: DYSPEPSIA Last Admin: 08/27/19 18:00 Dose: 30 ml Documented by: Albuterol Sulfate (Ventolin Aerosols) 2.5 mg INHALATION Q2H PRN PRN PRN Reason: Shortness of Breath/Wheezing Albuterol/Ipratropium (Duoneb) 3 ml INHALATION Q4HWA.RT [facility] Last Admin: 08/27/19 19:25 Dose: 3 ml Documented by: Aspirin (Aspirin) 325 mg PO DAILYCM [facility] Last Admin: 08/27/19 08:24 Dose: 325 mg Documented by: Azithromycin (Zithromax) 500 mg PO X1 ONE Stop: 08/27/19 22:01 Diphenhydramine HCl (Benadryl) 25 mg PO QHS [facility] Last Admin: 08/26/19 21:03 Dose: 25 mg Documented by: Enoxaparin Sodium (Lovenox) 40 mg SC DAILY [facility] Last Admin: 08/27/19 08:25 Dose: 40 mg Documented by: Glucagon () 1 mg IM .X1 PRN PRN Reason: Hypoglycemia Guaifenesin (Mucinex) 1,200 mg PO BID [facility] Last Admin: 08/27/19 08:25 Dose: 1,200 mg Documented by: Hydrocortisone (Hytone) 1 applic TOPICAL BID PRN PRN; Protocol PRN Reason: ITCHING Last Admin: 08/27/19 03:02 Dose: 1 applic Documented by: Dextrose (Dextrose 10%-Water) 250 mls @ 999 mls/hr IV .Q16M PRN; Protocol PRN Reason: HYPOGLYCEMIA Lorazepam (Ativan) 1 mg PO Q8H PRN PRN PRN Reason: ANXIETY Last Admin: 08/27/19 13:34 Dose: 1 mg Documented by: Melatonin (Melatonin) 3 mg PO QHS PRN PRN PRN Reason: INSOMNIA Methylprednisolone (Solu-Medrol) 40 mg IV Q8 [facility] Last Admin: 08/27/19 13:30 Dose: 40 mg Documented by: Multivitamins (Multivitamin) 1 tablet PO DAILYCM [facility] Last Admin: 08/27/19 08:24 Dose: 1 tablet Documented by: Nutritional Formula (Lactose Free) (Ensure Enlive) 120 ml PO 4X/DAY [facility] Last Admin: 08/27/19 15:38 Dose: Not Given Documented by: Ondansetron HCl (Zofran) 4 mg IV Q8H PRN PRN PRN Reason: NAUSEA/VOMITING Pantoprazole Sodium (Protonix) 40 mg PO DAILY [facility] Last Admin: 08/27/19 08:26 Dose: 40 mg Documented by: Sodium Chloride () 10 - 40 ml IV UD PRN PRN Reason: SALINE FLUSH Last Admin: 08/27/19 05:06 Dose: 10 ml Documented by: Medical Necessity - Tobacco Use Smoking Status: Former smoker Assessment/Plan All Active Problems (Last Updated 08/26/19 @ 02:[address] Braeden Craig MD) COPD exacerbation (Acute) #1 acute exacerbation of COPD-continue present treatment at this time, patient will be reevaluated tomorrow, I will have pulmonary medicine see the patient tomorrow #2 acute hypoxic respiratory failure-patient is now on nasal cannula O2, he may require home oxygen. #3 recent influenza A infection 08/12/2019 Code Visit Inpatient E&M: 20493 Subs Hosp L2
--- NOTE | 2019-08-27 19:30 | CT_ITS ---
STUDY: CTA CHEST REASON FOR EXAM: Male, 53 years old. Hypoxia on exertion today. Worsening shortness of breath for weeks. COPD. Recent influenza. RADIATION DOSAGE (If Supplied By Facility): CTDIvol = ( 8.57 ) mGy, DLP = ( 359.79 ) mGycm TECHNIQUE: The examination was performed with the intravenous administration of 75mL Isovue 370. Post-processing of the angiographic images was performed, with multiplanar reformation and 3D reconstruction. Individualized dose optimization techniques were used for this CT. COMPARISON: Chest, August 25, 2019. FINDINGS: Normal enhancement of the main pulmonary artery and right and left pulmonary arteries. Normal enhancement of the bilateral peripheral pulmonary arteries. There is no demonstrated pulmonary embolism. Normal thoracic aorta and visualized great vessels. There is no demonstrated aortic dissection. Normal heart and pericardium. There are calcifications of the coronary arteries. Normal mediastinum. Normal hilar regions. Normal visualized trachea and bronchi. The lungs are hyper expanded, with flattening of the hemidiaphragms. Normal pulmonary parenchyma. Normal pleura. Normal chest wall structures. Normal osseous structures. Fatty infiltration of the liver. The upper abdomen is otherwise unremarkable. CT/CTA Chest W/WO Contrast IMPRESSION: 1. Normal CTA chest examination, without a demonstrated pulmonary embolism or arterial dissection. 2. Fatty infiltration of the liver. Electronically Signed: Burton Watters DO at 20:26 EST Tel [phone], Service support ,
[2019-08-27] MEDS: DiphenhydrAMINE 25 MG Capsule PO (21:38)
[2019-08-27] MEDS: Azithromycin 250 MG Tablet 500 MG PO (21:39)
[2019-08-28] VITALS (16 sets, daily range): BP systolic 116–140; BP diastolic 76–89; PULSE 77–112; RESP 12–24; TEMP 36.4–36.7; O2SAT 88–97
--- NOTE | 2019-08-28 01:01 | NURSING ---
Handoff report given to Barry MARMOLEJO. She will now be resuming care of this patient.
[2019-08-28] MEDS: 0.9% Saline Lock 10 ML Syringe IV ×2 (05:04→21:33)
[2019-08-28] MEDS: Ipratropium/Albuterol Sulfate 3 ML AMPUL.NEB INHALATION ×4 (07:05→19:30)
[2019-08-28] MEDS: guaiFENesin 1,200 MG Tablet 1200 MG PO ×2 (08:19→21:29)
[2019-08-28] MEDS: Enoxaparin 40 MG/0.4 ML Syringe SC (08:20)
[2019-08-28] MEDS: Multivitamins,Therapeutic Tablet 1 TABLET PO (08:20)
[2019-08-28] MEDS: Aspirin 325 MG Tablet PO (08:20)
[2019-08-28] MEDS: Pantoprazole Sodium 40 MG Tablet PO (08:20)
--- NOTE | 2019-08-28 08:27 | CON.PCM_ITS ---
Reason for Consult Date of Consultation: 08/28/19 Reason for Consultation: Respiratory failure History of Present Illness: The patient is a 53-year-old male, with a history as outlined below, who presented to the emergency department on August 25 with gradually worsening shortness of breath. The patient has a self-reported history of advanced age COPD with an FEV1 of 35% of predicted. He is currently followed by Dr. James at [facility]. The patient reports that he is currently prescribed a triple therapy inhaler regimen in his home environment. Prior to this hospitalization, the patient did not utilize supplemental oxygen at his baseline. He did just recently complete a diagnostic polysomnogram in July 2019, which did reveal the evidence of mild GHASSAN. He has yet to complete a titration polysomnogram. He reports a smoking history of 1.5 packs of cigarettes a day x32 years. On presentation to the emergency department, the patient was noted to be afebrile and hemodynamically stable. Initial laboratory evaluation revealed no evidence of a leukocytosis. Chemistry profile was unremarkable. Troponin was negative. Initial plain film chest x-ray revealed no acute cardiopulmonary process. The patient was subsequently admitted to the progressive care unit. He has been managed with scheduled bronchodilators and IV steroids throughout his hospital course. A CTA chest obtained yesterday revealed hyperinflated lung shelton without evidence for pulmonary embolism or focal infiltrate. He is currently maintaining appropriate oxygen saturations on 2 L/min this morning. Past Medical History Past Medical History (Chronic Problems): Chronic Problems (Last Updated 08/26/19 @ 02:[address] Braeden Craig MD) COPD (chronic obstructive pulmonary disease) (Chronic) Medical History: Medical History (Last Updated 08/26/19 @ 02:[address] Braeden Craig MD) COPD (chronic obstructive pulmonary disease) (Chronic) J44.9 Allergies codeine Allergy (Verified 08/25/19 18:06) Unknown Penicillins Allergy (Verified 08/25/19 18:06) Unknown Home Medications: Ambulatory Orders Medication Instructions Recorded Aspirin 325 mg PO DAILY 06/30/15 Albuterol Inhaler [Ventolin Hfa 1 puff INHALATION Q6H PRN PRN 01/05/16 (SP)] Blue-Green Algae [Spirulina] 500 mg PO DAILY 01/05/16 Diphenhydramine HCl [Benadryl 25 mg PO QHS 01/05/16 Allergy] Ginkgo Biloba 120 mg PO DAILY 01/05/16 Umeclidinium Brm/Vilanterol Tr 1 each IH DAILY 01/05/16 [Anoro Ellipta 62.5-25 Mcg INH] Fluticasone/Umeclidin/Vilanter 1 ea IH DAILY 08/25/19 [Trelegy Ellipta 100-62.5-25] Ginseng 250 mg PO DAILY 08/25/19 Guaifenesin [Mucinex] 1,200 mg PO BID 08/25/19 Multivitamin [Once Daily] 1 ea PO DAILY 08/25/19 Mv-Min/Vit C/Glut/Lysine/Hc124 1 ea PO DAILY 08/25/19 [Airborne Tablet Chewable] Nicotine Polacrilex [Nicorette] 2 mg BC DAILY PRN 08/25/19 Omeprazole 40 mg PO DAILY 08/25/19 Prednisone 10 mg PO DAILY 08/25/19 Surgical History: - - Surgery for brain aneurysm repair. Lives: Spouse/ Significant Other Smoking Status: Former smoker Alcohol: Occasional - *Family History Maternal History Items: Diabetes, - - His mother had hearing loss. Paternal History Items: - - Denies any pertinent medical history. Review of Systems Constitutional: Denies: Chills, Fever Eyes: Denies: Blurred vision, Double vision HEENT: Denies: Head Aches, Sinus Congestion, Sinus Drainage Cardiovascular: Denies: Chest Pain, Palpitations Respiratory: Reports: Shortness of Breath Gastrointestinal: Denies: Abdominal Pain, Nausea, Vomiting Genitourinary: Denies: Dysuria Musculoskeletal: Denies: Joint Pain, Joint Tenderness Skin: Denies: Rash, Wounds Neurological: Denies: Numbness, Tingling, Focal weakness Psychiatric: Denies: Anxiety, Depression, Homicidal Ideations, Suicidal Ideations Hematologic/ Lymphatic: Denies: Easy Bruising, Easy Bleeding Patient Problems: Active and Suspected Problems (Last Updated 08/26/19 @ 02:[address] Braeden Craig MD) COPD exacerbation (Acute) Objective: The patient's most recent lab work, culture data and imaging studies have all been personally reviewed. - Physical Exam Vitals/I&O's: Vital Signs Temp Pulse Resp BP Pulse Ox 97.8 F 89 20 H 116/81 H 94 08/28/19 03:30 08/28/19 07:05 08/28/19 07:05 08/28/19 03:30 08/28/19 07:05 Oxygen Flow Rate (L/min) [ 3 AMBULATION with Oxygen] Oxygen Flow Rate (L/min) 2 Oxygen Delivery Method Nasal Cannula Weight: 154 lb 8.705 oz Body Mass Index (BMI) 25.7 Intake and Output for Last 24 Hours 08/26/19 08/27/19 08/28/19 23:59 23:59 23:59 Intake Total 2200.75 / 2200.75 1435 / 1435 Output Total 400 / 400 Balance 2200.75 / 2200.75 1035 / 1035 General: Alert, Oriented x3, Cooperative, No apparent distress HEENT: Atraumatic, PERRLA, Normocephalic Oral: No Gingival or Mucosal Lesions/ Ulcerations Neck: Supple, No Nodes, Trachea Midline Lungs: No rhonchi, No wheeze, No rales, Diminished, - - No conversational dyspnea Cardiovascular: Regular rate, Regular Rhythm, Normal S1, Normal S2, No murmurs Abdomen: Bowel Sounds Present, Soft, Non Tender Extremities: No clubbing, No cyanosis Skin: No breakdown Musculoskeletal: No Tenderness to Palpation of Joints or Extremities, No Muscle Wasting Lymphatic: No Cervical, Supraclavicular, or Inguinal Adenopathy Neurological: Cranial nerves II-XII grossly intact, Neuro grossly intact Psych/Mental Status: Normal Affect, Appropriate Labs (Last 48 Hours) 08/26/19 19:27 POC Glucose 214 H Clinical Impression(s) from Imaging Studies Chest X-Ray 08/25/19 19:50 IMPRESSION: Increased hyperexpansion and generalized findings of COPD without new consolidation, focal atelectasis, pleural effusion or cardiomegaly. Electronically Signed: Shona Contreras MD at 20:30 EST , Service support , Chest CTA 08/27/19 19:30 IMPRESSION: 1. Normal CTA chest examination, without a demonstrated pulmonary embolism or arterial dissection. 2. Fatty infiltration of the liver. Electronically Signed: Burton Watters DO at 20:26 EST Tel [phone], Service support , Current Medications Acetaminophen (Tylenol) 650 mg PO Q6H PRN PRN PRN Reason: Pain Score 1-10/Temp > 100.7 F Al Hydroxide/Mg Hydroxide (Mylanta Ii) 30 ml PO Q4H PRN PRN PRN Reason: DYSPEPSIA Last Admin: 08/27/19 18:00 Dose: 30 ml Documented by: Albuterol Sulfate (Ventolin Aerosols) 2.5 mg INHALATION Q2H PRN PRN PRN Reason: Shortness of Breath/Wheezing Albuterol/Ipratropium (Duoneb) 3 ml INHALATION Q4HWA.RT [facility] Last Admin: 08/28/19 07:05 Dose: 3 ml Documented by: [facility] Last Admin: 08/28/19 08:20 Dose: 325 mg Documented by: Diphenhydramine HCl (Benadryl) 25 mg PO QHS [facility] Last Admin: 08/27/19 21:38 Dose: 25 mg Documented by: Enoxaparin Sodium (Lovenox) 40 mg SC DAILY [facility] Last Admin: 08/28/19 08:20 Dose: 40 mg Documented by: Glucagon () 1 mg IM .X1 PRN PRN Reason: Hypoglycemia Guaifenesin (Mucinex) 1,200 mg PO BID [facility] Last Admin: 08/28/19 08:19 Dose: 1,200 mg Documented by: Hydrocortisone (Hytone) 1 applic TOPICAL BID PRN PRN; Protocol PRN Reason: ITCHING Last Admin: 08/27/19 03:02 Dose: 1 applic Documented by: Dextrose (Dextrose 10%-Water) 250 mls @ 999 mls/hr IV .Q16M PRN; Protocol PRN Reason: HYPOGLYCEMIA Lorazepam (Ativan) 1 mg PO Q8H PRN PRN PRN Reason: ANXIETY Last Admin: 08/27/19 21:39 Dose: 1 mg Documented by: Melatonin (Melatonin) 3 mg PO QHS PRN PRN PRN Reason: INSOMNIA Methylprednisolone (Solu-Medrol) 40 mg IV Q8 [facility] Last Admin: 08/28/19 05:04 Dose: 40 mg Documented by: [facility]ivit[facility] ([facility]amin) [facility] Last Admin: 08/28/19 08:20 Dose: 1 tablet Documented by: Nutritional Formula (Lactose Free) (Ensure Enlive) 120 ml PO 4X/DAY [facility] Last Admin: 08/28/19 08:21 Dose: Not Given Documented by: Ondansetron HCl (Zofran) 4 mg IV Q8H PRN PRN PRN Reason: NAUSEA/VOMITING Pantoprazole Sodium (Protonix) 40 mg PO DAILY [facility] Last Admin: 08/28/19 08:20 Dose: 40 mg Documented by: Sodium Chloride () 10 - 40 ml IV UD PRN PRN Reason: SALINE FLUSH Last Admin: 08/28/19 05:04 Dose: 10 ml Documented by: Assessment/Plan All Active Problems (Last Updated 08/26/19 @ 02:[address] Braeden Craig MD) COPD exacerbation (Acute) RECOMMENDATIONS: 1. Wean supplemental oxygen to maintain saturations at or above 90%. 2. Continue scheduled bronchodilators and steroids. 3. Check respiratory viral panel. 4. Perform walking oximetry study prior to consideration for discharge home. 5. Outpatient follow-up with the patient's primary earth science faculty member within 2 weeks of discharge. 6. Outpatient titration polysomnogram. IMPRESSIONS: 1. Acute hypoxemic respiratory insufficiency Appears to be secondary to self-reported advanced age COPD with exacerbation. Although the patient's CT chest did not reveal evidence of pneumonia, I cannot discount the possibility of tracheobronchitis or a viral upper respiratory infection. The patient has been maintained on scheduled bronchodilators and IV steroids. Recommend continuing supplemental oxygen and weaning to maintain a saturation at or above 90%. Encourage incentive spirometer use while in bed. We will plan to check a respiratory viral panel. The patient will need to follow-up with his primary earth science faculty member, Dr. James, within 2 weeks of discharge. 2. Obstructive sleep apnea The patient is in need of completing a titration polysomnogram. This will be deferred to the patient's primary earth science faculty member. 3. 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 Continue home medications as indicated. This note was generated with Terapioation software. It may contain incorrect words, spelling, and punctuation that were not noted in checking the note before signing. Code Visit Inpatient E&M: 27846 Init Hosp L3
[2019-08-28] MEDS: LORazepam 1 MG Tablet PO ×2 (08:29→15:41)
--- NOTE | 2019-08-28 18:35 | PCM.PROGNOTE ---
Patient Problems: Active and Suspected Problems (Last Updated 08/26/19 @ 02:[address] Braeden Craig MD) COPD exacerbation (Acute) Subjective: Patient was seen and examined today, he is very short of breath on walking wearing nasal cannula O2. I had pulmonary medicine see the patient today, respiratory panel was ordered by pulmonary and this was negative for tested pathogens. Patient's CT scan last night showed no evidence of pulmonary emboli. I talked briefly with pulmonary medicine today and they feel that the patient has severe COPD, it appears that the patient sees Dr. James-pulmonary medicine at the [facility]. Patient will need set up with home O2, patient requested to be discharged tomorrow if possible rather than today due to the fact his works the second shift today and he would like his to be home when he arrives and when the oxygen is set up at home. - Physical Exam Vitals/I&O's: Vital Signs Temp Pulse Resp BP Pulse Ox 97.5 F L 112 H 20 H 119/89 H 94 08/28/19 15:45 08/28/19 17:01 08/28/19 15:45 08/28/19 15:45 08/28/19 15:45 Oxygen Flow Rate (L/min) [ 2 AMBULATING on Room Air] Oxygen Flow Rate (L/min) [ 3 AMBULATION with Oxygen] Oxygen Flow Rate (L/min) 2 Oxygen Delivery Method Nasal Cannula Weight: 70.1 kg Body Mass Index (BMI) 25.7 Intake and Output for Last 24 Hours 08/26/19 08/27/19 08/28/19 23:59 23:59 23:59 Intake Total 2200.75 / 2200.75 1435 / 1435 360 / 360 Output Total 400 / 400 Balance 2200.75 / 2200.75 1035 / 1035 360 / 360 General: Alert, Oriented x3, Cooperative, Well developed HEENT: Atraumatic, PERRLA, EOMI, Normocephalic Oral: Moist Mucosa Neck: Supple, No JVD, Trachea Midline, Thyroid Normal Size and Texture Lungs: Clear to auscultation, Diminished Cardiovascular: Regular rate, Regular Rhythm, Normal S1, Normal S2, No murmurs, PMI Normal, No rub noted Abdomen: Bowel Sounds Present, Soft, Non Tender, Non-Distended Extremities: No edema, Capillary Refill Less than 3 Seconds Skin: No rashes, No breakdown Musculoskeletal: No Tenderness to Palpation of Joints or Extremities, No Muscle Wasting Neurological: Cranial nerves II-XII grossly intact, Neuro grossly intact, Sensory exam intact to light touch and pain Psych/Mental Status: Normal Affect, Appropriate, Alert and oriented to time, place, person, mood and affect Microbiology Past 72 Hours 08/28/19 Unknown Mucosa - Nose Respiratory Panel (PCR) - Final Current Medications Acetaminophen (Tylenol) 650 mg PO Q6H PRN PRN PRN Reason: Pain Score 1-10/Temp > 100.7 F Al Hydroxide/Mg Hydroxide (Mylanta Ii) 30 ml PO Q4H PRN PRN PRN Reason: DYSPEPSIA Last Admin: 08/27/19 18:00 Dose: 30 ml Documented by: Albuterol Sulfate (Ventolin Aerosols) 2.5 mg INHALATION Q2H PRN PRN PRN Reason: Shortness of Breath/Wheezing Albuterol/Ipratropium (Duoneb) 3 ml INHALATION Q4HWA.RT [facility] Last Admin: 08/28/19 14:32 Dose: 3 ml Documented by: Asp[facility] ([facility]) [facility] Last Admin: 08/28/19 08:20 Dose: 325 mg Documented by: Diphenhydramine HCl (Benadryl) 25 mg PO QHS [facility] Last Admin: 08/27/19 21:38 Dose: 25 mg Documented by: Enoxaparin Sodium (Lovenox) 40 mg SC DAILY [facility] Last Admin: 08/28/19 08:20 Dose: 40 mg Documented by: Glucagon () 1 mg IM .X1 PRN PRN Reason: Hypoglycemia Guaifenesin (Mucinex) 1,200 mg PO BID [facility] Last Admin: 08/28/19 08:19 Dose: 1,200 mg Documented by: Hydrocortisone (Hytone) 1 applic TOPICAL BID PRN PRN; Protocol PRN Reason: ITCHING Last Admin: 08/27/19 03:02 Dose: 1 applic Documented by: Dextrose (Dextrose 10%-Water) 250 mls @ 999 mls/hr IV .Q16M PRN; Protocol PRN Reason: HYPOGLYCEMIA Lorazepam (Ativan) 1 mg PO Q8H PRN PRN PRN Reason: ANXIETY Last Admin: 08/28/19 15:41 Dose: 1 mg Documented by: Melatonin (Melatonin) 3 mg PO QHS PRN PRN PRN Reason: INSOMNIA Methylprednisolone (Solu-Medrol) 40 mg IV Q8 [facility] Last Admin: 08/28/19 13:42 Dose: 40 mg Documented by: Multivitamins (Multivitamin) 1 tablet PO DAILYCM [facility] Last Admin: 08/28/19 08:20 Dose: 1 tablet Documented by: Ondansetron HCl (Zofran) 4 mg IV Q8H PRN PRN PRN Reason: NAUSEA/VOMITING Pantoprazole Sodium (Protonix) 40 mg PO DAILY [facility] Last Admin: 08/28/19 08:20 Dose: 40 mg Documented by: Sodium Chloride () 10 - 40 ml IV UD PRN PRN Reason: SALINE FLUSH Last Admin: 08/28/19 05:04 Dose: 10 ml Documented by: Medical Necessity - Tobacco Use Smoking Status: Former smoker Assessment/Plan All Active Problems (Last Updated 08/26/19 @ 02:[address] Braeden Craig MD) COPD exacerbation (Acute) #1 acute exacerbation of COPD-continue present treatment at this time, patient will need oxygen set up at home tomorrow before he is discharged #2 acute hypoxic respiratory failure-patient is now on nasal cannula O2 #3 recent influenza A infection 08/12/2019 Code Visit Inpatient E&M: 84448 Subs Hosp L2
[2019-08-28] MEDS: DiphenhydrAMINE 25 MG Capsule PO (21:29)
[2019-08-29] VITALS (7 sets, daily range): BP systolic 125–137; BP diastolic 88–99; PULSE 80–103; RESP 16–20; TEMP 36.7–36.8; O2SAT 86–95
[2019-08-29] MEDS: 0.9% Saline Lock 10 ML Syringe IV (06:52)
[2019-08-29] MEDS: Ipratropium/Albuterol Sulfate 3 ML AMPUL.NEB INHALATION ×2 (07:12→11:37)
[2019-08-29] MEDS: Aspirin 325 MG Tablet PO (09:43)
[2019-08-29] MEDS: Multivitamins,Therapeutic Tablet 1 TABLET PO (09:43)
[2019-08-29] MEDS: guaiFENesin 1,200 MG Tablet 1200 MG PO (09:43)
[2019-08-29] MEDS: Enoxaparin 40 MG/0.4 ML Syringe SC (09:43)
[2019-08-29] MEDS: Pantoprazole Sodium 40 MG Tablet PO (09:43)
--- NOTE | 2019-08-29 11:03 | CASEMGMT ---
Pt does qualify for home oxygen at this time and referral faxed to [facility] per pt preference. Call to Qu[place] at [facility] and she is notified of referral and discharge at this time, voices understanding. Pt updated on all at this time, voices understanding. Pt states that he is still interested in completing AD's prior to discharge and Mike CLIFTON aware, voices understanding. Mari MARMOLEJO CM
--- NOTE | 2019-08-29 11:51 | PCM.DC ---
- Discharge Diagnoses Current Active Problems: Current Active and Chronic Problems (Last Updated 08/26/19 @ 02:[address] Braeden Craig MD) COPD exacerbation (Acute) COPD (chronic obstructive pulmonary disease) (Chronic) You will use the following diet at home:: No restrictions Your food should be the consistency of: Regular Your liquids should be the consistency of: Regular/Thin Discharge Activity: Return to Normal Activity Weight Bearing Status: Full weight bearing Additional Instructions: Oxygen at 3 liters at all times Allergies/Adverse Reactions: Allergies codeine Allergy (Verified 08/25/19 18:06) Unknown Penicillins Allergy (Verified 08/25/19 18:06) Unknown Medications to take at Discharge Aspirin 325 mg PO DAILY 06/30/15 Albuterol Inhaler [Ventolin Hfa] 1 puff INHALATION Q6H PRN PRN 01/05/16 Diphenhydramine HCl [Benadryl Allergy] 25 mg PO QHS 01/05/16 Umeclidinium Brm/Vilanterol Tr [Anoro Ellipta 62.5-25 Mcg INH] 1 each IH DAILY 01/05/16 Fluticasone/Umeclidin/Vilanter [Trelegy Ellipta 100-62.5-25] 1 ea IH DAILY 08/25/19 Guaifenesin [Mucinex] 1,200 mg PO BID 08/25/19 Multivitamin [Once Daily] 1 ea PO DAILY 08/25/19 Mv-Min/Vit C/Glut/Lysine/Hc124 [Airborne Tablet Chewable] 1 ea PO DAILY 08/25/19 Nicotine Polacrilex [Nicorette] 2 mg BC DAILY PRN 08/25/19 Omeprazole 40 mg PO DAILY 08/25/19 Lorazepam [Ativan] 1 mg PO Q8H PRN PRN #14 tab 08/29/19 Prednisone 10 mg PO UD #30 tab 08/29/19 The following prescriptions were given: Lorazepam [Ativan] 1 mg PO Q8H PRN PRN #14 tab PRN Reason: Anxiety Transmission Status: Sent to [facility] Prednisone 10 mg PO UD #30 tab Prescription Printed Primary Care Physician: Ata Avelar MD [Primary Care Provider] - Test Results: Test results from this visit will be discussed in further detail at your follow-up appointment, if applicable. Please Follow Up With: Ata Avelar MD Please Follow Up With: Josue James MD When: in 1-2 weeks
--- NOTE | 2019-08-29 12:26 | PHA.DC.MC ---
Pharmacy Service has performed discharge medication reconciliation and counseling for this patient. 1. LORAZEPAM 1MG PO Q8H PRN ANXIETY 2. PREDNISONE 40MG PO DAILY X 3 DAYS, 30MG X 3 DAYS, 20MG X 3 DAYS, 10MG X 3 DAYS The patient's discharge medication list was reviewed for discrepancies and discrepancies were resolved. I spoke with Dr. Wills regarding Anoro and Trelegy on d/c list. Pt reports taking Trelegy and his fill history reflects this. Dr. Wills D/C'ed Anoro. Home Medications Aspirin 325 mg PO DAILY 06/30/15 Albuterol Inhaler [Ventolin Hfa] 1 puff INHALATION Q6H PRN PRN 01/05/16 Diphenhydramine HCl [Benadryl Allergy] 25 mg PO QHS 01/05/16 Fluticasone/Umeclidin/Vilanter [Trelegy Ellipta 100-62.5-25] 1 ea IH DAILY 08/25/19 Guaifenesin [Mucinex] 1,200 mg PO BID 08/25/19 Multivitamin [Once Daily] 1 ea PO DAILY 08/25/19 Mv-Min/Vit C/Glut/Lysine/Hc124 [Airborne Tablet Chewable] 1 ea PO DAILY 08/25/19 Nicotine Polacrilex [Nicorette] 2 mg BC DAILY PRN 08/25/19 Omeprazole 40 mg PO DAILY 08/25/19 Lorazepam [Ativan] 1 mg PO Q8H PRN PRN #14 tab 08/29/19 Prednisone 10 mg PO UD #30 tab 08/29/19 The patient was counseled on the following discharge medications and changes in medications for homegoing were reviewed. The Reason for Use, instructions for use, and potential side effects were reviewed for all new medications. The patient's questions regarding all of their medications were answered. The patient was able to verbally demonstrate an understanding of their discharge medications.
--- NOTE | 2019-08-29 12:36 | PN_ITS ---
Subjective: The patient was seen and examined at the bedside this morning. Events from the last 24 hours have been reviewed. The patient is currently afebrile, hemodynamically stable and maintaining appropriate oxygen saturations on 2 L/min via nasal cannula. Shortness of breath has improved. Objective: The patient's most recent lab work, culture data and imaging studies have all been personally reviewed. Respiratory viral panel was negative. - Physical Exam Vitals/I&O's: Vital Signs Temp Pulse Resp BP Pulse Ox 98.0 F 103 H 18 137/99 H 91 08/29/19 09:30 08/29/19 09:30 08/29/19 09:30 08/29/19 09:30 08/29/19 10:46 Oxygen Flow Rate (L/min) [ 2 AMBULATING on Room Air] Oxygen Flow Rate (L/min) [ 3 AMBULATION with Oxygen] Oxygen Flow Rate (L/min) 2 Oxygen Delivery Method Nasal Cannula Weight: 154 lb 8.705 oz Body Mass Index (BMI) 25.7 Intake and Output for Last 24 Hours 08/27/19 08/28/19 08/29/19 23:59 23:59 23:59 Intake Total 1435 / 1435 600 / 600 840 / 840 Output Total 400 / 400 Balance 1035 / 1035 600 / 600 840 / 840 General: Alert, Oriented x3, Cooperative, No apparent distress HEENT: Atraumatic, Normocephalic Oral: No Gingival or Mucosal Lesions/ Ulcerations Neck: Supple, No Nodes, Trachea Midline Lungs: No rhonchi, No wheeze, No rales, Diminished Cardiovascular: Regular rate, Regular Rhythm, Normal S1, Normal S2, No murmurs Abdomen: Bowel Sounds Present, Soft, Non Tender Extremities: No clubbing, No cyanosis, No edema Skin: No breakdown Musculoskeletal: No Tenderness to Palpation of Joints or Extremities Lymphatic: No Cervical, Supraclavicular, or Inguinal Adenopathy Neurological: Cranial nerves II-XII grossly intact, Neuro grossly intact Psych/Mental Status: Alert and oriented to time, place, person, mood and affect Microbiology 08/28/19 Unknown Mucosa - Nose Respiratory Panel (PCR) - Final Clinical Impression(s) from Imaging Studies Chest X-Ray 08/25/19 19:50 IMPRESSION: Increased hyperexpansion and generalized findings of COPD without new consolidation, focal atelectasis, pleural effusion or cardiomegaly. Electronically Signed: Shona Contreras MD at 20:30 EST , Service support , Chest CTA 08/27/19 19:30 IMPRESSION: 1. Normal CTA chest examination, without a demonstrated pulmonary embolism or arterial dissection. 2. Fatty infiltration of the liver. Electronically Signed: Burton Watters DO at 20:26 EST Tel [phone], Service support , Current Medications Acetaminophen (Tylenol) 650 mg PO Q6H PRN PRN PRN Reason: Pain Score 1-10/Temp > 100.7 F Al Hydroxide/Mg Hydroxide (Mylanta Ii) 30 ml PO Q4H PRN PRN PRN Reason: DYSPEPSIA Last Admin: 08/27/19 18:00 Dose: 30 ml Documented by: Albuterol Sulfate (Ventolin Aerosols) 2.5 mg INHALATION Q2H PRN PRN PRN Reason: Shortness of Breath/Wheezing Albuterol/Ipratropium (Duoneb) 3 ml INHALATION Q4HWA.RT [facility] Last Admin: 08/29/19 11:37 Dose: 3 ml Documented by: [facility] Last Admin: 08/29/19 09:43 Dose: 325 mg Documented by: Diphenhydramine HCl (Benadryl) 25 mg PO QHS [facility] Last Admin: 08/28/19 21:29 Dose: 25 mg Documented by: Enoxaparin Sodium (Lovenox) 40 mg SC DAILY [facility] Last Admin: 08/29/19 09:43 Dose: 40 mg Documented by: Glucagon () 1 mg IM .X1 PRN PRN Reason: Hypoglycemia Guaifenesin (Mucinex) 1,200 mg PO BID [facility] Last Admin: 08/29/19 09:43 Dose: 1,200 mg Documented by: Hydrocortisone (Hytone) 1 applic TOPICAL BID PRN PRN; Protocol PRN Reason: ITCHING Last Admin: 08/27/19 03:02 Dose: 1 applic Documented by: Dextrose (Dextrose 10%-Water) 250 mls @ 999 mls/hr IV .Q16M PRN; Protocol PRN Reason: HYPOGLYCEMIA Lorazepam (Ativan) 1 mg PO Q8H PRN PRN PRN Reason: ANXIETY Last Admin: 08/28/19 15:41 Dose: 1 mg Documented by: Melatonin (Melatonin) 3 mg PO QHS PRN PRN PRN Reason: INSOMNIA Methylprednisolone (Solu-Medrol) 40 mg IV Q8 [facility] Last Admin: 08/29/19 06:50 Dose: 40 mg Documented by: Multivitamins (Multivitamin) 1 tablet PO DAILYCM [facility] Last Admin: 08/29/19 09:43 Dose: 1 tablet Documented by: Ondansetron HCl (Zofran) 4 mg IV Q8H PRN PRN PRN Reason: NAUSEA/VOMITING Pantoprazole Sodium (Protonix) 40 mg PO DAILY [facility] Last Admin: 08/29/19 09:43 Dose: 40 mg Documented by: Sodium Chloride () 10 - 40 ml IV UD PRN PRN Reason: SALINE FLUSH Last Admin: 08/29/19 06:52 Dose: 10 ml Documented by: Medical Necessity - Tobacco Use Smoking Status: Former smoker Assessment/Plan All Active Problems (Last Updated 08/26/19 @ 02:[address] Braeden Craig MD) COPD exacerbation (Acute) RECOMMENDATIONS: 1. Wean supplemental oxygen to maintain saturations at or above 90%. 2. Continue scheduled bronchodilators and steroids. Plan for prednisone taper at discharge. 3. Perform walking oximetry study prior to consideration for discharge home. 4. Outpatient follow-up with the patient's primary plate conditioner within 2 weeks of discharge. 5. Outpatient titration polysomnogram. IMPRESSIONS: 1. Acute hypoxemic respiratory insufficiency Appears to be secondary to self-reported advanced age COPD with exacerbation. Although the patient's CT chest did not reveal evidence of pneumonia, I cannot discount the possibility of tracheobronchitis or a viral upper respiratory infection. The patient has been maintained on scheduled bronchodilators and IV steroids. Recommend continuing supplemental oxygen and weaning to maintain a saturation at or above 90%. Encourage incentive spirometer use while in bed. The patient will need to follow-up with his primary plate conditioner, Dr. James, within 2 weeks of discharge. 2. Obstructive sleep apnea The patient is in need of completing a titration polysomnogram. This will be deferred to the patient's primary plate conditioner. 3. 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 Continue home medications as indicated. This note was generated with [employer] dictation software. It may contain incorrect words, spelling, and punctuation that were not noted in checking the note before signing. Code Visit Inpatient E&M: 87809 Subs Hosp L2
--- NOTE | 2019-08-30 12:36 | PCM.HOSP.N ---
Hospitalist Note The date of this entry is 08/29/2019: Patient was seen and examined today, patient was ambulated with oxygen and he maintained his pulse ox at 91% on 3 L. Patient's at rest room air O2 saturation was 86, patient was set up with oxygen 2 to 3 L via nasal cannula, patient is ambulatory and is he is expected to use oxygen within the home and when ambulating outside the home.
--- NOTE | 2019-08-30 16:07 | CASEMGMT ---
Discharge F/U Phone Call LACE: 11 Strata: 3 Discharge date: 08/29/19 Call date: 08/30/19 Call time: [id number] Duration: 2 minutes Admission dx: COPD exacerbation Pt states has been 'doing good' since discharge. Pt states no questions regarding discharge instructions/medications at this time. Pt states f/u with PCP today and plans to keep appt with pulmonary next week. Pt states no concerns with [facility] at this time and states 'the nurses were great, very helpful/knowledgeable, and they had a great bedside manner.' Pt states no further questions/concerns/needs at this time. SStarvind MARMOLEJO CM
--- NOTE | 2019-09-01 09:17 | DS.PCM_ITS ---
Discharge Date and Diagnosis Date of Admission: 08/25/19 Date of Discharge: 08/29/19 - Primary Discharge Diagnosis #1 acute exacerbation of COPD #2 acute hypoxic respiratory failure #3 recent influenza A infection 08/12/2019 - Secondary Discharge Diagnosis Chronic Problems (Last Updated 08/26/19 @ 02:[address] Braeden Craig MD) COPD (chronic obstructive pulmonary disease) (Chronic) Hospital Course and Treatment Operations: None Procedures: None Summary of Care Provided: The patient is a 53 year old M who was seen in the emergency room with a chief complaint of shortness of breath x2 weeks. Patient recently had an influenza a infection was treated as an outpatient for same, he has a history of COPD and persisted in having shortness of breath over the last 2 weeks. DuoNeb aerosols were given in the emergency room, chest x-ray was performed which showed COPD without evidence of consolidation. CBC was unremarkable, patient was given IV Solu-Medrol but he continued to be dyspneic and required supplemental oxygen to maintain his pulse ox above 90%. Patient was admitted to PCU, he was given IV corticosteroids and aerosol treatments and is oxygen saturation was monitored, he was seen in consultation by pulmonary medicine. Patient had a CT of the chest to rule out PE-there was no evidence of PE. On 08/29/2019, patient was seen and examined: On examination he appeared in good health and spirits. Vital signs as documented. Skin warm and dry and without overt rashes. Neck without JVD. Lungs-scattered expiratory rhonchi are noted. Heart exam notable for regular rhythm, normal sounds and absence of murmurs, rubs or gallops. Abdomen unremarkable and without evidence of organomegaly, masses, or abdominal aortic enlargement. Extremities nonedematous. Neuro: Cranial nerves II through XII are grossly intact, no focal motor deficits were noted, sensation to light touch and pinprick intact. Psych: Patient is alert and oriented x3, he does not appear anxious or depressed Patient requires supplemental oxygen at the time of discharge. On 08/29/2019, patient was discharged in stable condition to home - Physical Exam Vitals/I&O's: Vital Signs Temp Pulse Resp BP Pulse Ox 98.0 F 103 H 18 137/99 H 91 08/29/19 09:30 08/29/19 09:30 08/29/19 09:30 08/29/19 09:30 08/29/19 10:46 Oxygen Flow Rate (L/min) [ 2 AMBULATING on Room Air] Oxygen Flow Rate (L/min) [ 3 AMBULATION with Oxygen] Oxygen Flow Rate (L/min) 2 Oxygen Delivery Method Nasal Cannula Weight: 70.1 kg Body Mass Index (BMI) 25.7 Discharge Activity: Return to Normal Activity Weight Bearing Status: Full weight bearing Home Medications: Medications to take at Discharge Aspirin 325 mg PO DAILY 06/30/15 Albuterol Inhaler [Ventolin Hfa] 1 puff INHALATION Q6H PRN PRN 01/05/16 Diphenhydramine HCl [Benadryl Allergy] 25 mg PO QHS 01/05/16 Fluticasone/Umeclidin/Vilanter [Trelegy Ellipta 100-62.5-25] 1 ea IH DAILY 08/25/19 Guaifenesin [Mucinex] 1,200 mg PO BID 08/25/19 Multivitamin [Once Daily] 1 ea PO DAILY 08/25/19 Mv-Min/Vit C/Glut/Lysine/Hc124 [Airborne Tablet Chewable] 1 ea PO DAILY 08/25/19 Nicotine Polacrilex [Nicorette] 2 mg BC DAILY PRN 08/25/19 Omeprazole 40 mg PO DAILY 08/25/19 Lorazepam [Ativan] 1 mg PO Q8H PRN PRN #14 tab 08/29/19 Prednisone 10 mg PO UD #30 tab 08/29/19 Following Prescrptions Were Given to Patient: Lorazepam [Ativan] 1 mg PO Q8H PRN PRN #14 tab PRN Reason: Anxiety Transmission Status: Received by [facility] Prednisone 10 mg PO UD #30 tab Prescription Printed Primary Care Physician: Ata Avelar MD [Primary Care Provider] - Please Follow Up With: Ata Avelar MD Please Follow Up With: Josue James MD When: in 1-2 weeks Disposition: Home Minutes spent on discharge:: 32 Patient Condition:: Stable Medical Necessity - Tobacco Use Smoking Status: Former smoker Meaningful Use Info Meaningful Use Diagnoses (Choose all that apply): None applicable Code Visit Inpatient E&M: 01964 Disch Hosp
== END 2019-08-29 13:18 | disposition home or self-care (01) | DRG 189 ==
LOC: ED 19:21 → PCU 08-26 07:24
PROVIDERS: Admitting Provider Hospitalist; Emergency Provider Emergency Medicine; PCP Family Medicine; Visit Provider Internal Medicine
DX: J96.01 Acute respiratory failure with hypoxia (principal); J44.1 Chronic obstructive pulmonary disease with (acute) exacerbation; G47.33 Obstructive sleep apnea (adult) (pediatric); Z87.891 Personal history of nicotine dependence
CPT/HCPCS: 36415; 36600; 71046; 71275; 80048; 82803; 82962; 83605; 84484; 85025; 87633; 93005; 94002; 94003; 94640; 94760; 97802; 99251; 99285; J7030; Q9967; A4216; G0463

== ENCOUNTER → 2021-10-12 23:30 | Outpatient (CLI) | payer OTHER, SELFPAY | PROVIDERS: PCP Family Medicine | DX: G47.33 Obstructive sleep apnea (adult) (pediatric) (principal) | CPT/HCPCS: 95811 ==

== ENCOUNTER 2024-07-20 09:41 | Inpatient (IN) | payer BC, SELFPAY ==
[2024-07-20] VITALS (15 sets, daily range): BP systolic 114–196; BP diastolic 78–103; PULSE 90–108; RESP 18–27; TEMP 36.1–37.2; O2SAT 94–99; BMI 45.1; BMI 27.5; BMI 24.5
--- NOTE | 2024-07-20 10:20 | RAD_ITS ---
STUDY: X-RAY CHEST REASON FOR EXAM: Male, 58 years old. Cough dyspnea TECHNIQUE: Single AP portable view of the chest. COMPARISON: August 25, 2019 FINDINGS: There are monitoring and support devices. There are emphysematous changes of the lungs. There are mild lower lung interstitial increased opacities. There is small right pleural effusion. Normal size heart. Normal mediastinum and albert. Normal visualized pulmonary arteries. Normal visualized aortic arch and descending thoracic aorta. Normal visualized thoracic spine. Normal visualized ribs, clavicles, and shoulders. There is no demonstrated abnormality of the visualized soft tissue structures of the upper abdomen. RAD/Chest 1 View (Portable) IMPRESSION: COPD with lower lung edema or infiltrate. Small right pleural effusion Electronically Signed: Chris Long MD at 10:51 EST ,
--- NOTE | 2024-07-20 10:22 | EKG12_ITS ---
Test Reason : SOB Blood Pressure : */* mmHG Vent. Rate : 104 BPM Atrial Rate : 104 BPM P-R Int : 134 ms QRS Dur : 78 ms QT Int : 324 ms P-R-T Axes : 88 71 73 degrees QTcB Int : 426 ms Sinus tachycardia Otherwise normal ECG Confirmed by JEREMIAH SANDERS, ROSANNA ([id number]), assistant editor LEVAR JOHN ([id number]) on 07/22/2024 10:44:05 A M Also confirmed by ROSANNA DANIELS MD ([id number]), assistant editor LEVAR JOHN ([id number]) on 07/22/2024 10:4 4:18 AM Referred By: DAWSON Confirmed By: ROSANNA DANIELS MD
[2024-07-20] MEDS: Albuterol 2.5 MG/3 ML VIAL.NEB. INHALATION (10:27)
[2024-07-20] MEDS: MethylPREDNISolone 125 MG/2 ML Vial IV (10:27)
[2024-07-20] MEDS: Ipratropium/Albuterol Sulfate 3 ML AMPUL.NEB INHALATION ×4 (10:27→22:56)
[2024-07-20 10:30] LABS: Absolute Lymphocyte Count 0.76 X10^3/uL (0.83-4.51); Absolute Neutrophil Count 17.7 X10^3/uL (2.0-7.7); Basophil# 0.08 X10^3/uL; Basophil% 0.4 % (0-1); Eosinophil# 0.03 X10^3/uL; Eosinophils% 0.1 % (0-5); Hematocrit 46.5 % (40-54); Hemoglobin 15.8 g/dL (13.0-16.5); Lymphocyte # 0.76 X10^3/ul (0.83-4.51); Lymphocyte % 3.8 % (19-41); Mean Corpuscular Hgb 31.3 pg (27.0-32.0); Mean Corpuscular Volume 92.3 fL (80-94); Mean Platelet Vol. 8.9 fl (6.2-12.0); Monocyte# 1.38 X10^3/uL; Monocyte% 6.9 % (0-10); NRBC Flagged by Analyzer 0 % (0-5); Neutrophil # 17.74 X10^3/uL (2.7-7.7); Neutrophil % 88.4 % (47-70); Platelet Count 319 K/mm3 (150-450); RBC Distribution Width CV 12.1 % (11.6-14.6); RBC Distribution Width SD 41.3 fl (35.1-43.9); Red Blood Count 5.04 M/mm3 (4.6-6.2); White Blood Count 20.1 K/mm3 (4.4-11.0)
--- NOTE | 2024-07-20 10:45 | ED.VIS.DYS ---
HPI History of Present Illness Chief Complaint: Shortness of Breath Informant: patient and spouse/S.O. Narrative Narrative: 58-year-old male history of COPD on home oxygen presenting to the emergency room with cough and shortness of breath. Patient states for about 4 weeks he has been sick. He states it is hard for him to catch his breath and he feels like his lung is collapsed like it did in 2019. He states that he is coughing up phlegm. States about 4 weeks ago he was placed on an antibiotic and did a tapering dose of prednisone. He is unsure what the antibiotics name was. He denies any fever. He states that he has not gotten any better and can only walk minimally without having to rest. Nothing specifically is different today as compared to last week he is just not getting any sleep at night. He states he has been on BiPAP before and does not like it. [facility] Medical History Anxiety COPD (chronic obstructive pulmonary disease) Home Medications ?Medication ?Instructions ?Recorded ?Last Taken ?Type aspirin 325 mg tablet 325 mg PO DAILY heart health 06/30/15 07/20/24 10:00 History 325 mg albuterol sulfate 90 mcg/actuation 1 puff inhalation Q6H PRN PRN Cough 01/05/16 07/20/24 08:00 History aerosol inhaler (Ventolin HFA) 1 puff diphenhydramine HCl 25 mg tablet 25 mg PO QHS sleep 01/05/16 07/19/24 23:30 History (Benadryl Allergy) 25 mg fluticasone fur. 100 mcg-umeclid 1 ea IH DAILY lungs 08/25/19 07/20/24 10:00 History 62.5 mcg-vilant 25 mcg 1 ea inhalat.powder guaifenesin 1,200 mg tablet, 1,200 mg PO BID thins secretions 08/25/19 07/20/24 10:00 History extended release 12 hr 1,200 mg multivitamin 1 ea PO DAILY supplement 08/25/19 07/20/24 10:00 History 1 ea mv-min-vit A-ikac-wzmbcs nereida-herb 1 ea PO DAILY supplement 08/25/19 07/20/24 10:00 History #124 250 mg-12.5 mg chewable tablet 1 ea nicotine (polacrilex) 2 mg buccal 2 mg BC DAILY PRN nicotine cravings 08/25/19 07/20/24 10:00 History lozenge 2 mg omeprazole 40 mg capsule,delayed 40 mg PO DAILY GERD 08/25/19 07/20/24 10:00 History release 40 mg lorazepam 1 mg tablet 1 mg PO Q8H PRN PRN Anxiety #14 08/29/19 07/19/24 08:00 Rx tabs 1 mg buspirone 10 mg tablet 10 mg PO TID anxiety 07/20/24 07/20/24 10:00 History 10 mg montelukast 10 mg tablet 10 mg PO QHS Pulmonary 07/20/24 07/19/24 22:00 History 10 mg Allergy/AdvReac Type Severity Reaction Status Date / Time codeine Allergy Unknown Verified 07/20/24 09:42 Penicillins Allergy Unknown Verified 07/20/24 09:42 Social History Smoking Status: Former smoker ROS ROS ED Constitutional Constitutional ED: Denies chills, fever(s) or weight loss Eyes Eyes: Denies change in vision or diplopia ENT ENT ED: Denies ear pain, rhinorrhea or sore throat Cardiovascular Cardiovascular: Denies chest pain, orthopnea, palpitations or racing heartbeat Respiratory/Chest Respiratory/Chest: Reports cough, dyspnea, dyspnea on exertion and sputum; Denies orthopnea Gastrointestinal Gastrointestinal: Denies abdominal pain, diarrhea, nausea or vomiting Genitourinary Genitourinary ED: Denies dysuria, hematuria or urinary frequency Musculoskeletal Musculoskeletal: Denies arthralgias or myalgias Integumentary Denies abscess or rash Neurologic Neurologic: Denies headache(s) or weakness Psychiatric Psychiatric: Reports anxiety; Denies depression, suicidal ideation or suicidal thoughts Endocrine Endocrinology: Denies polydipsia, polyphagia or polyuria Allergic/Immunologic Allergic/Immunologic ED: Denies mouth swelling, tongue swelling or urticaria EXAM Physical Exam Const Vital Signs: 07/20/24 09:42 07/20/24 09:44 07/20/24 09:44 Temperature 98.9 F 98.2 F Temperature Source Oral Oral Pulse Rate 108 H 100 Respiratory Rate 26 H 18 Respiratory Effort Short of Breath Labored Respiratory Pattern Tachypnea Blood Pressure 196/102 H 169/100 H Blood Pressure Mean 133 123 Pulse Ox 94 97 Oxygen Delivery Method Room Air Oxygen Flow Rate (L/min) 07/20/24 10:38 07/20/24 10:38 07/20/24 10:41 Temperature Temperature Source Pulse Rate 98 98 Respiratory Rate 18 24 H Respiratory Effort Respiratory Pattern Blood Pressure 168/91 H Blood Pressure Mean 116 Pulse Ox 98 99 Oxygen Delivery Method Nasal Cannula Nasal Cannula Oxygen Flow Rate (L/min) 3 3 07/20/24 10:43 07/20/24 10:45 07/20/24 11:00 Temperature 98.2 F Temperature Source Oral Pulse Rate 98 104 H Respiratory Rate 24 H 24 H Respiratory Effort Respiratory Pattern Blood Pressure 168/91 H 162/97 H Blood Pressure Mean 116 118 Pulse Ox 99 97 Oxygen Delivery Method Nasal Cannula Oxygen Flow Rate (L/min) 2.5 3 07/20/24 11:00 07/20/24 12:00 07/20/24 12:00 Temperature 96.9 F L 96.9 F L Temperature Source Temporal Temporal Pulse Rate 104 H 94 94 Respiratory Rate 24 H 27 H 27 H Respiratory Effort Respiratory Pattern Blood Pressure 162/97 H 161/103 H 161/103 H Blood Pressure Mean 118 122 122 Pulse Ox 97 98 98 Oxygen Delivery Method Nasal Cannula Nasal Cannula Nasal Cannula Oxygen Flow Rate (L/min) 3 3 3 07/20/24 13:00 07/20/24 13:00 Temperature 97.6 F L Temperature Source Temporal Pulse Rate 92 92 Respiratory Rate 22 H 22 H Respiratory Effort Respiratory Pattern Blood Pressure 130/88 H 130/88 H Blood Pressure Mean 102 102 Pulse Ox 98 98 Oxygen Delivery Method Nasal Cannula Nasal Cannula Oxygen Flow Rate (L/min) 3 3 Positive well nourished and well developed General Appearance ED: well developed HEENT Reports normocephalic, head/scalp atraumatic and moist mucous membranes Eyes PERRL and EOMs intact bilaterally Neck no lymphadenopathy, supple and no JVD Resp Resp Narrative: Patient is significantly tachypneic. There is rhonchi that improves with cough but no significant expiratory or inspiratory wheezing. Cardio regular rate, regular rhythm and no murmurs Rate: tachycardic GI normal to inspection, nondistended, normoactive bowel sounds and non-tender Palpation: soft Back/Spine no CVA tenderness and normal ROM Extremity normal to inspection General Extremety ED: Negative for edema General Extremity: Negative for edema Neuro oriented x3 and CN's II-XII intact bilaterally Sensorium / Orientation: alert Motor Exam: strength 5/5 throughout Psych Mood & Affect: anxious; Negative for depressed or tearful Skin no rashes or lesions noted and no wounds MDM MDM MDM Narrative Medical decision making narrative: Differential diagnosis includes COPD exacerbation bronchitis pneumonia pulmonary embolism pleural effusion congestive heart failure Patient received supplemental oxygen. White count returns elevated at 20.1 with platelet count of 319 hemoglobin of 15.8. Lactic acid is normal 0.9. BMP and troponin within normal limits. Glucose 148 creatinine 0.85. My independent interpretation of the chest x-ray is left lower lobe infiltrate. CTA of the chest does not demonstrate pulmonary embolism but is consistent with bibasilar pneumonia. Patient received breathing treatment Solu-Medrol Rocephin and azithromycin. Blood cultures obtained prior to antibiotics. I believe the patient would benefit from some anxiolytics he received a dose of Ativan. Plan is admission into hospital. History & Record Review Discussion w/independent historian: Patient and Significant other Lab Data Attestation: I reviewed the patient's lab results. Labs: Laboratory Results - last 24 hr 07/20/24 07/20/24 07/20/24 10:00 10:31 12:55 WBC 20.1 H RBC 5.04 Hgb 15.8 Hct 46.5 MCV 92.3 MCH 31.3 MCHC 34.0 RDW Std Deviation 41.3 RDW Coeff of [place] 12.1 Plt Count 319 MPV 8.9 Immature Gran % (Auto) 0.400 Neut % (Auto) 88.4 H Lymph % (Auto) 3.8 L Luce % (Auto) 6.9 Eos % (Auto) 0.1 Baso % (Auto) 0.4 Absolute Neuts (auto) 17.7 H Absolute Lymphs (auto) 0.76 L Nucleated RBC % 0 Sodium 136 Potassium 4.8 Chloride 100 Carbon Dioxide 30.0 Anion Gap 6 BUN 10 Creatinine 0.85 Estim Creat Clear Calc 85.56 Est GFR (MDRD) Af Amer 120 Est GFR (MDRD) Non-Af 99 BUN/Creatinine Ratio 11.8 Glucose 148 H Lactic Acid 0.9 Calcium 9.7 Total Bilirubin 0.80 Direct Bilirubin 0.17 AST 61 H ALT 62 H Alkaline Phosphatase 92 Troponin I High Sens 10 B-Natriuretic Peptide 12.6 Total Protein 8.1 Albumin 3.5 Globulin 4.6 H POC Glucose 137 H Radiography Diagnostic Testing: Clinical Impression(s) from Imaging Studies Chest X-Ray 07/20/24 10:20 IMPRESSION: COPD with lower lung edema or infiltrate. Small right pleural effusion Electronically Signed: Chris Long MD at 10:51 EST , Chest CTA 07/20/24 11:24 IMPRESSION: CTA chest examination, without a demonstrated pulmonary embolism or arterial dissection. Emphysema. Bilateral pneumonia. Electronically Signed: Chris Long MD at 12:31 EST , EKG Initial EKG: Attestation: I personally reviewed and interpreted this EKG as follows: Comments: Sinus tachycardia ventricular rate of 104 bpm. Management Discussion w/another healthcare provider: Hospitalist (Dr. Gandhi) Discharge Plan Dx/Rx/DC Orders Clinical Impression: COPD (chronic obstructive pulmonary disease), Pneumonia, Anxiety Disposition Disposition: Acute Care Hospital [facility] Discharge Date/Time: 07/20/24 14:45
[2024-07-20 10:50] LABS: Bedside Glucose 137 mg/dL (74-106)
[2024-07-20 11:17] LABS: BNP,B-Type NATRIURETIC PEPTIDE 12.6 pg/mL (0-100)
[2024-07-20 11:22] LABS: AST(SGOT) 61 U/L (15-37); Alanine Aminotransfer ALT/SGPT 62 U/L (16-61); Albumin, Serum 3.5 g/dL (3.2-5.0); Alkaline Phosphatase 92 U/L (45-117); Anion Gap 6 (5-15); BUN 10 mg/dL (7-18); BUN/Creat Ratio 11.8 RATIO (10-20); Bilirubin, Direct 0.17 mg/dL (0.00-0.30); Calcium,Total 9.7 mg/dL (8.5-10.1); Chloride 100 mmol/L (98-107); Creatinine, Serum 0.85 mg/dL (0.70-1.30); EST Glomerular Filtration Rate 99 mL/min (>60); Est Glom Filt Rate - Afr Amer 120 mL/min (>60); Estimated Creatinine Clearance 85.56 ml/min; Globulin 4.6 g/dL (2.2-4.2); Glucose 148 mg/dL (74-106); Potassium 4.8 mmol/L (3.5-5.1); Protein, Total 8.1 g/dL (6.4-8.2); Sodium Level 136 mmol/L (136-145); Troponin-I HS 10 pg/mL (3.0-78.0)
--- NOTE | 2024-07-20 11:24 | CT_ITS ---
STUDY: CTA CHEST REASON FOR EXAM: Male, 58 years old. Cough, dyspnea, Pulmonary embolism RADIATION DOSAGE (If Supplied By Facility): CTDIvol = ( 12.66 ) mGy, DLP = ( 400.93 ) mGycm TECHNIQUE: The examination was performed with the intravenous administration of IV 100mL Isovue-370. Post-processing of the angiographic images was performed, with multiplanar reformation and 3D reconstruction. Individualized dose optimization techniques were used for this CT. COMPARISON: Chest x-ray FINDINGS: Normal enhancement of the main pulmonary artery and right and left pulmonary arteries. Normal enhancement of the bilateral peripheral pulmonary arteries. There is no demonstrated pulmonary embolism. Normal thoracic aorta and visualized great vessels. There is no demonstrated aortic dissection. There are calcifications of the coronary arteries. Normal mediastinum. Normal hilar regions. Normal visualized trachea and bronchi. The lungs are well expanded. There is emphysema of the lungs with mild fibrotic densities. There is moderate patchy right middle and lower lobe and left lingular airspace consolidation. Normal pleura. Normal chest wall structures. There is degenerative change of the spine. Normal visualized upper abdomen. CT/CTA Chest W/WO Contrast IMPRESSION: CTA chest examination, without a demonstrated pulmonary embolism or arterial dissection. Emphysema. Bilateral pneumonia. Electronically Signed: Chris Long MD at 12:31 [facility] ,
[2024-07-20] MEDS: LORazepam 2 MG/ML Syringe 1 MG IV (12:51)
[2024-07-20] MEDS: Ceftriaxone 1 GM/50 ML BAG IV (13:17)
--- NOTE | 2024-07-20 13:29 | HP.PCM.HOS_ITS ---
HPI - General General Date of Admission: 07/20/24 Date of Service: 07/20/24 Chief Complaint: Progress worsening shortness of breath, productive cough for 4 weeks HPI Narrative KARLI DIEHL, is a 58 M came to ED for shortness of breath, worsening dyspnea on exertion, productive cough for 4 weeks. He was prescribed antibiotic probably Zithromax and tapering dose of prednisone by PCP about 4 weeks ago. He follows deputy juvenile officer Dr. Millie de la cruz, [facility]. He states for the last 4 weeks he is not feeling better with progressive worsening of shortness of breath and dyspnea on exertion. He used to get short of breath from from bedroom to garage now he cannot walk 10 feet without shortness of breath or stopping to catch breath. Denies fever or chills. Severe cough with thick greenish-yellow sputum. Denies any recent diagnosed viral illness. He states he had lung collapse in 2019 and he is on home O2, 2.5 Liters continuously since 2014. Chest x-ray and CTA chest individually reviewed and discussion assessment and plan. Vitals reviewed shows mild tachypnea and sinus tachycardia. [facility] Medical History Anxiety COPD (chronic obstructive pulmonary disease) Home Medications ?Medication ?Instructions ?Recorded ?Last Taken ?Type aspirin 325 mg tablet 325 mg PO DAILY heart health 06/30/15 Unknown History albuterol sulfate 90 mcg/actuation 1 puff inhalation Q6H PRN PRN Cough 01/05/16 Unknown History aerosol inhaler (Ventolin HFA) diphenhydramine HCl 25 mg tablet 25 mg PO QHS sleep 01/05/16 Unknown History (Benadryl Allergy) fluticasone fur. 100 mcg-umeclid 1 ea IH DAILY lungs 08/25/19 Unknown History 62.5 mcg-vilant 25 mcg inhalat.powder guaifenesin 1,200 mg tablet, 1,200 mg PO BID thins secretions 08/25/19 Unknown History extended release 12 hr multivitamin 1 ea PO DAILY supplement 08/25/19 Unknown History mv-min-vit I-dojm-lfosbr nereida-herb 1 ea PO DAILY supplement 08/25/19 Unknown History #124 250 mg-12.5 mg chewable tablet nicotine (polacrilex) 2 mg buccal 2 mg BC DAILY PRN nicotine cravings 08/25/19 Unknown History lozenge omeprazole 40 mg capsule,delayed 40 mg PO DAILY GERD 08/25/19 Unknown History release lorazepam 1 mg tablet 1 mg PO Q8H PRN PRN Anxiety #14 08/29/19 Unknown Rx tabs prednisone 10 mg tablet 10 mg PO UD #30 tabs 08/29/19 Unknown Rx Allergy/AdvReac Type Severity Reaction Status Date / Time codeine Allergy Unknown Verified 07/20/24 09:42 Penicillins Allergy Unknown Verified 07/20/24 09:42 Social History Smoking Status: Former smoker ROS ROS Narrative Constitutional: Reports worsening of fatigue and weakness. No fever. HEENT: Reports systems reviewed and no addt'l complaints, except as documented Respiratory/Chest: As described in HPI. Quit smoking in 2019 CVS: No chest pressure or tightness or pain Gastrointestinal: Denies coffee ground emesis, hematemesis or vomiting Genitourinary: Denies burning urination or new urinary tract symptoms Musculoskeletal: Denies acute joint pain or limited range of motion. No acute injury Neurologic: Denies seizure-like symptoms. skin: No ulcer. No rash Endocrinology: Reports systems reviewed and no addt'l complaints, except as documented Hematologic/Lymphatic: Reports systems reviewed and no addt'l complaints, except as documented Rest 14 ROS are negative except as mentioned in HPI Vital Signs Vital Signs Vital Signs: 07/20/24 09:42 07/20/24 09:44 07/20/24 09:44 Temperature 98.9 F 98.2 F Temperature Source Oral Oral Pulse Rate 108 H 100 Respiratory Rate 26 H 18 Respiratory Effort Short of Breath Labored Respiratory Pattern Tachypnea Blood Pressure 196/102 H 169/100 H Blood Pressure Mean 133 123 Pulse Ox 94 97 Oxygen Delivery Method Room Air Oxygen Flow Rate (L/min) 07/20/24 10:38 07/20/24 10:38 07/20/24 10:41 Temperature Temperature Source Pulse Rate 98 98 Respiratory Rate 18 24 H Respiratory Effort Respiratory Pattern Blood Pressure 168/91 H Blood Pressure Mean 116 Pulse Ox 98 99 Oxygen Delivery Method Nasal Cannula Nasal Cannula Oxygen Flow Rate (L/min) 3 3 07/20/24 10:43 07/20/24 10:45 07/20/24 11:00 Temperature 98.2 F Temperature Source Oral Pulse Rate 98 104 H Respiratory Rate 24 H 24 H Respiratory Effort Respiratory Pattern Blood Pressure 168/91 H 162/97 H Blood Pressure Mean 116 118 Pulse Ox 99 97 Oxygen Delivery Method Nasal Cannula Oxygen Flow Rate (L/min) 2.5 3 07/20/24 11:00 07/20/24 12:00 07/20/24 12:00 Temperature 96.9 F L 96.9 F L Temperature Source Temporal Temporal Pulse Rate 104 H 94 94 Respiratory Rate 24 H 27 H 27 H Respiratory Effort Respiratory Pattern Blood Pressure 162/97 H 161/103 H 161/103 H Blood Pressure Mean 118 122 122 Pulse Ox 97 98 98 Oxygen Delivery Method Nasal Cannula Nasal Cannula Nasal Cannula Oxygen Flow Rate (L/min) 3 3 3 07/20/24 13:00 07/20/24 13:00 Temperature 97.6 F L Temperature Source Temporal Pulse Rate 92 92 Respiratory Rate 22 H 22 H Respiratory Effort Respiratory Pattern Blood Pressure 130/88 H 130/88 H Blood Pressure Mean 102 102 Pulse Ox 98 98 Oxygen Delivery Method Nasal Cannula Nasal Cannula Oxygen Flow Rate (L/min) 3 3 Weight Weight: 155 lb 6.814 oz Body Mass Index (BMI) 27.5 Physical Exam Narrative General: Alert, Oriented x3, Cooperative, sitting upright, in tripod position HEENT: Atraumatic, PERRLA, EOMI, Normocephalic Oral: Oral mucosa dry. No Gingival or Mucosal Lesions/ Ulcerations Neck: Supple, No JVD, Negative Carotid Bruits Chest wall/Lungs: Air entry diminished in bilateral lung bases. Bilateral lower lungs coarse rhonchi. Mild tachypnea Cardiovascular: Sinus tachycardia, Normal S1, Normal S2, No M/G/R Abdomen: Bowel Sounds Present, Soft, Non Tender, Non-Distended : No dysuria. No renal angle tenderness. No suprapubic tenderness. Extremities: No edema, Capillary Refill Less than 3 Seconds Skin: No rashes, No breakdown Musculoskeletal: No Tenderness to Palpation of Joints or Extremities Neurological: Cranial nerves II-XII grossly intact, DTR 2+/4. No acute focal neurological deficit. Psych/Mental Status: Flat affect, anxious Results Lab / Micro Data 07/20/24 10:00 07/20/24 10:00 Labs: Laboratory Results - last 24 hr 07/20/24 10:00: WBC 20.1 H, RBC 5.04, Hgb 15.8, Hct 46.5, MCV 92.3, MCH 31.3, MCHC 34.0, RDW Std Deviation 41.3, RDW Coeff of [place] 12.1, Plt Count 319, MPV 8.9, Immature Gran % (Auto) 0.400, Neut % (Auto) 88.4 H, Lymph % (Auto) 3.8 L, Dickey % (Auto) 6.9, Eos % (Auto) 0.1, Baso % (Auto) 0.4, Absolute Neuts (auto) 17.7 H, Absolute Lymphs (auto) 0.76 L, Nucleated RBC % 0, Sodium 136, Potassium 4.8, Chloride 100, Carbon Dioxide 30.0, Anion Gap 6, BUN 10, Creatinine 0.85, Estim Creat Clear Calc 85.56, Est GFR (MDRD) Af Amer 120, Est GFR (MDRD) Non-Af 99, BUN/Creatinine Ratio 11.8, Glucose 148 H, Calcium 9.7, Total Bilirubin 0.80, Direct Bilirubin 0.17, AST 61 H, ALT 62 H, Alkaline Phosphatase 92, Troponin I High Sens 10, B-Natriuretic Peptide 12.6, Total Protein 8.1, Albumin 3.5, G lobulin 4.6 H 07/20/24 10:31: POC Glucose 137 H Imaging Radiology Impression Chest X-Ray 07/20/24 10:20 IMPRESSION: COPD with lower lung edema or infiltrate. Small right pleural effusion Electronically Signed: Chris Long MD at 10:51 EST , Chest CTA 07/20/24 11:24 IMPRESSION: CTA chest examination, without a demonstrated pulmonary embolism or arterial dissection. Emphysema. Bilateral pneumonia. Electronically Signed: Chris Long MD at 12:31 EST , Assessment & Plan Assessment/Plan (1) COPD exacerbation: (2) Pneumonia: PLAN: Plan This 58-year-old gentleman is being admitted for progressively worsening shortness of breath, productive cough and worsening dyspnea on exertion for 4 weeks and diagnosed pneumonia. 1. COPD exacerbation probably exacerbated by bilateral pneumonia: [facility] Chest x-ray and CTPA initially reviewed. No acute PE. Chronic emphysematous lungs. Mild fibrotic changes in lower lobe and consolidation in RML, RLL and left lingular lobe. Twelve-lead EKG individually reviewed and shows sinus tachycardia at 104 bpm, QTc 426 ms. Patient is being managed on scheduled bronchodilator, IV Solu-Medrol, Mucinex, incentive spirometry and Pep. 2. Bilateral, RML, RLL and left lingular pneumonia: Patient is started on IV ceftriaxone and azithromycin. Pneumonia workup including sputum culture, blood culture and triple PCR for flu, RSV and COVID-19 ordered 3. Chronic hypoxic respiratory failure: At home patient on 2.5 L/min. Currently 3 L/min. Continue oxygen therapy to keep pulse ox 90%. 4. Chronic anxiety: Patient on lorazepam 1 mg Q8 hourly as needed for anxiety. 5. Former smoker: Patient stated he quit smoking in 2019. DVT, moderate to high risk: Enoxaparin 40 mg subcu daily. Living will/advanced directive/end of life care: Patient does not have living will or advanced directive. He does not have daycare power of assistant county attorney for health. His presented ED is next to kin. After discussion of benefits/risks procedures involved with full code, DNR CC arrest and DNR CC, the patient opted for full code. Patient does want artificial life support including intubation, tube feed, ventilator and/chest compression, central venous catheter, vasopressor and DC shock if needed Total time spent in [id number] encounter in discussion of advanced directive 17 minutes. Laboratory Results 07/20/24 10:00: WBC 20.1 H, RBC 5.04, Hgb 15.8, Hct 46.5, MCV 92.3, MCH 31.3, MCHC 34.0, RDW Std Deviation 41.3, RDW Coeff of [place] 12.1, Plt Count 319, MPV 8.9, Immature Gran % (Auto) 0.400, Neut % (Auto) 88.4 H, Lymph % (Auto) 3.8 L, Dickey % (Auto) 6.9, Eos % (Auto) 0.1, Baso % (Auto) 0.4, Absolute Neuts (auto) 17.7 H, Absolute Lymphs (auto) 0.76 L, Nucleated RBC % 0, Sodium 136, Potassium 4.8, Chloride 100, Carbon Dioxide 30.0, Anion Gap 6, BUN 10, Creatinine 0.85, Estim Creat Clear Calc 85.56, Est GFR (MDRD) Af Amer 120, Est GFR (MDRD) Non-Af 99, BUN/Creatinine Ratio 11.8, Glucose 148 H, Calcium 9.7, Total Bilirubin 0.80, Direct Bilirubin 0.17, AST 61 H, ALT 62 H, Alkaline Phosphatase 92, Troponin I High Sens 10, B-Natriuretic Peptide 12.6, Total Protein 8.1, Albumin 3.5, G lobulin 4.6 H 07/20/24 10:31: POC Glucose 137 H 07/20/24 12:55: Lactic Acid 0.9 Clinical Impression(s) from Imaging Studies Chest X-Ray 07/20/24 10:20 IMPRESSION: COPD with lower lung edema or infiltrate. Small right pleural effusion Chest CTA 07/20/24 11:24 IMPRESSION: CTA chest examination, without a demonstrated pulmonary embolism or arterial dissection. Emphysema. Bilateral pneumonia. Electronically Signed: Chris Long MD at 12:31 EST , Charges/Coding Visit Charges Inpatient E&M: 42694 Init Hosp L3 Procedures Hospitalists Procedures: 91619 Advncd Care Plan 30 Min
[2024-07-20] MEDS: Azithromycin 500 MG in 0.9% Normal Saline (250mL Bag) 250 ML 255 MG IV (13:50)
[2024-07-20 14:00] LABS: Lactic Acid 0.9 mmol/L (0.4-1.9)
--- NOTE | 2024-07-20 14:00 | CASEMGMT ---
Care Management Face to Face with patient for initial transition planning/care coordination assessment in the ED.? 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 Patient sitting upright in bed, alert and oriented. Patient?s at bedside which patient was agreeable to having present during the visit. Patient willing to participate in assessment and is able to answer all questions appropriately.? Care providers, pharmacy, and demographics verified. Admitting Diagnosis: Bilateral pneumonia, Emphysema Other diagnosis history: Chronic Obstructive Pulmonary Disease (COPD) PCP: Dr. Gurmeet Saunders Specialists: Millie France and Helen Solano, both pulmonologists. Preferred Pharmacy: [facility] in [place] Insurance: [place] Prescription Benefit:?Yes Living Will/HPOA: None but interested LNOK: Patient?s spouse: Sirisha Duke, patient?s daughter Neelima who resides in [place] and Sirisha?s children Umang and Kenn of [place] and VARGAS who is currently serving overseas. Living Arrangements: Patient and patient?s reside in a ranch/first floor living.? 1 step going in and out of the house and no identified environmental barriers. Transportation: Secure.? Both patient and patient?s are licensed drivers with reliable transportation. DME: Grab bars, shower bench. Lift chair and oxygen. HHC: None in place and none needed. SNF/Rehab: No prior. Community Resources: Denied any in place ?and denied current need. Behavioral Health History: Anxiety, on medication to help with sleeping. No established psychiatrist or mental health counselor and none requested. Patient goals: Patient wishes to discharge home and denies need for SNF or HHC at this time.? Patient denies any further needs or concerns. Disposition Plan: admission to acute; RN CM/SW to follow for discharge planning needs that may arise. Helen Hall, PHARMACY INTERN, [employer]
[2024-07-20] MEDS: guaiFENesin 1,200 MG Tablet 1200 MG PO ×2 (17:32→22:19)
[2024-07-20] MEDS: 0.9% Normal Saline (1000mL) 1,000 ML 75 ML IV (18:08)
[2024-07-20] MEDS: Enoxaparin 40 MG/0.4 ML Syringe SC (18:15)
[2024-07-20] MEDS: busPIRone 5 MG Tablet 10 MG PO (19:43)
[2024-07-21] VITALS (9 sets, daily range): BP systolic 139–162; BP diastolic 79–97; PULSE 72–102; RESP 14–24; TEMP 36.4–36.6; O2SAT 97–99
[2024-07-21] MEDS: busPIRone 5 MG Tablet 10 MG PO ×4 (01:14→23:11)
[2024-07-21 04:36] LABS: Absolute Lymphocyte Count 0.83 X10^3/uL (0.83-4.51); Absolute Neutrophil Count 15.4 X10^3/uL (2.0-7.7); Basophil# 0.02 X10^3/uL; Basophil% 0.1 % (0-1); Hematocrit 39.6 % (40-54); Hemoglobin 13.4 g/dL (13.0-16.5); Lymphocyte # 0.83 X10^3/ul (0.83-4.51); Lymphocyte % 4.9 % (19-41); Mean Corp Hgb Conc 33.8 g/dL (32-36); Mean Corpuscular Hgb 31.5 pg (27.0-32.0); Monocyte# 0.43 X10^3/uL; Monocyte% 2.6 % (0-10); NRBC Flagged by Analyzer 0 % (0-5); Neutrophil # 15.41 X10^3/uL (2.7-7.7); Neutrophil % 91.9 % (47-70); Platelet Count 294 K/mm3 (150-450); RBC Distribution Width CV 12.2 % (11.6-14.6); RBC Distribution Width SD 41.7 fl (35.1-43.9); Red Blood Count 4.26 M/mm3 (4.6-6.2); White Blood Count 16.8 K/mm3 (4.4-11.0)
[2024-07-21 04:55] LABS: Anion Gap 4 (5-15); BUN 13 mg/dL (7-18); BUN/Creat Ratio 19.4 RATIO (10-20); Calcium,Total 9.4 mg/dL (8.5-10.1); Chloride 104 mmol/L (98-107); Creatinine, Serum 0.67 mg/dL (0.70-1.30); EST Glomerular Filtration Rate 130 mL/min (>60); Est Glom Filt Rate - Afr Amer 158 mL/min (>60); Estimated Creatinine Clearance 99.08 ml/min; Glucose 168 mg/dL (74-106); Potassium 4.2 mmol/L (3.5-5.1); Sodium Level 136 mmol/L (136-145)
[2024-07-21] MEDS: Ipratropium/Albuterol Sulfate 3 ML AMPUL.NEB INHALATION ×5 (07:46→23:03)
[2024-07-21] MEDS: guaiFENesin 1,200 MG Tablet 1200 MG PO ×2 (09:49→21:19)
[2024-07-21] MEDS: Enoxaparin 40 MG/0.4 ML Syringe SC (09:49)
[2024-07-21] MEDS: 0.9% Normal Saline (100mL Bag) 100 ML 15 ML IV (10:11)
[2024-07-21] MEDS: Ceftriaxone 2 GM in 0.9% Normal Saline (50mL MB+) 50 ML IV (10:13)
[2024-07-21] MEDS: Ibuprofen 400 MG Tablet PO (11:23)
[2024-07-21] MEDS: ALPRAZolam 0.25 MG Tablet PO (11:23)
[2024-07-21] MEDS: Azithromycin 500 MG in 0.9% Normal Saline (250mL Bag) 250 ML 255 MG IV (11:24)
[2024-07-21] MEDS: Mag Hydrox/Al Hydrox/Simeth 30 ML UDC PO (11:24)
--- NOTE | 2024-07-21 14:21 | PN.HOSP_ITS ---
Reason for Visit Reason for Visit: Diagnoses Pneumonia, unspecified organism (07/20/24) Chronic obstructive pulmonary disease with (acute) exacerbation (07/20/24) Objective Data Objective Data Vital Signs: Vital Signs Temp Pulse Resp BP Pulse Ox O2 Del Method O2 Flow Rate 97.9 F 81 17 162/97 H 97 Nasal Cannula 3 07/21/24 07:40 07/21/24 11:21 07/21/24 11:21 07/21/24 07:40 07/21/24 07:45 07/21/24 07:45 07/21/24 07:45 Oxygen Flow Rate (L/min) 3 Oxygen Delivery Method Nasal Cannula Weight: 138 lb 7.205 oz Body Mass Index (BMI) 24.5 Intake & Output: Intake and Output for Last 24 Hours 07/19/24 07/20/24 07/21/24 23:59 23:59 23:59 Intake Total 305 / 305 1305 / 1305 Output Total 675 / 675 Balance 305 / 105 630 / 630 Lab / Micro Data 07/21/24 04:09 07/21/24 04:09 Labs: Laboratory Results - last 24 hr 07/21/24 04:09: WBC 16.8 H, RBC 4.26 L, Hgb 13.4, Hct 39.6 L, MCV 93.0, MCH 31.5, MCHC 33.8, RDW Std Deviation 41.7, RDW Coeff of [place] 12.2, Plt Count 294, MPV 9.0, Immature Gran % (Auto) 0.500, Neut % (Auto) 91.9 H, Lymph % (Auto) 4.9 L, [place] % (Auto) 2.6, Eos % (Auto) 0.0, Baso % (Auto) 0.1, Absolute Neuts (auto) 15.4 H, Absolute Lymphs (auto) 0.83, Nucleated RBC % 0, Sodium 136, Potassium 4.2, Chloride 104, Carbon Dioxide 28.0, Anion Gap 4 L, BUN 13, Creatinine 0.67 L , Estim Creat Clear Calc 99.08, Est GFR (MDRD) Af Amer 158, Est GFR (MDRD) Non- Af 130, BUN/Creatinine Ratio 19.4, Glucose 168 H, Calcium 9.4 Micro: Microbiology 07/20/24 22:20 Nasal Secretion MRSA (PCR) - Final 07/20/24 23:00 Mucosa - Nasopharyngeal SARS-CoV-2, Influenza & RSV (PCR) - Final 07/20/24 23:35 Urine, Clean Catch Legionella Antigen - Final 07/20/24 23:35 Urine, Clean Catch Streptococcus pneumoniae Antigen (M - Final Physical Exam Narrative Seen and examined. Patient has anxious personality and gets hyperventilation. Shortness of breath is better. Physical exam: General: Alert, Oriented x3, Cooperative, comfortably laying on the bed. HEENT: Atraumatic, PERRLA, EOMI, Normocephalic Oral: Oral mucosa dry. No Gingival or Mucosal Lesions/ Ulcerations Neck: Supple, No JVD, Negative Carotid Bruits Chest wall/Lungs: Air entry diminished in bilateral lung bases. Bilateral lower lungs coarse crepitations/rhonchi. Cardiovascular: Normal rate and rhythm, normal S1, Normal S2, No M/G/R Abdomen: Bowel Sounds Present, Soft, Non Tender, Non-Distended : No dysuria. No renal angle tenderness. No suprapubic tenderness. Extremities: No edema, Capillary Refill Less than 3 Seconds Skin: No rashes, No breakdown Musculoskeletal: No Tenderness to Palpation of Joints or Extremities Neurological: Cranial nerves II-XII grossly intact, DTR 2+/4. No acute focal neurological deficit. Psych/Mental Status: Flat affect, anxious Assessment & Plan Assessment/Plan (1) COPD exacerbation: (2) Pneumonia: PLAN: Plan This 58-year-old gentleman is being admitted for progressively worsening shortness of breath, productive cough and worsening dyspnea on exertion for 4 weeks and diagnosed pneumonia. 1. COPD exacerbation probably exacerbated by bilateral pneumonia: Patient is being admitted on MedSur floor. Chest x-ray and CTPA initially reviewed. No acute PE. Chronic emphysematous lungs. Mild fibrotic changes in lower lobe and consolidation in RML, RLL and left lingular lobe. Twelve-lead EKG individually reviewed and shows sinus tachycardia at 104 bpm, QTc 426 ms. Patient is being managed on scheduled bronchodilator, IV Solu-Medrol, Mucinex, incentive spirometry and Pep. 07/21: Triple PCR for SARS-CoV-2, flu and RSV are negative and respiratory panel are negative. Urinary antigens are negative. Continue above treatment. Continue incentive spirometry. 2. Bilateral, RML, RLL and left lingular pneumonia: Patient is started on IV ceftriaxone and azithromycin. As mentioned above. 3. Chronic hypoxic respiratory failure: At home patient on 2.5 L/min. Currently 3 L/min. Continue oxygen therapy to keep pulse ox 90%. 07/21: Patient on 3 L of oxygen his baseline. 4. Chronic anxiety: Patient on lorazepam 1 mg Q8 hourly as needed for anxiety. changed to Xanax 0.5 mg Q8 hourly as needed for anxiety. 5. Former smoker: Patient stated he quit smoking in 2019. Patient also complained of mild gastritis symptoms. On Mylanta as needed. Pantoprazole ordered DVT, moderate to high risk: Enoxaparin 40 mg subcu daily. Living will/advanced directive/end of life care: Patient does not have living will or advanced directive. He does not have daycare power of patent attorney for health. His presented ED is next to kin. After discussion of benefits/risks procedures involved with full code, DNR CC arrest and DNR CC, the patient opted for full code. Patient does want artificial life support including intubation, tube feed, ventilator and/chest compression, central venous catheter, vasopressor and DC shock if needed Microbiology Past 72 Hours 07/20/24 22:20 Nasal Secretion MRSA (PCR) - Final 07/20/24 23:00 Mucosa - Nasopharyngeal SARS-CoV-2, Influenza & RSV (PCR) - Final 07/20/24 23:35 Urine, Clean Catch Legionella Antigen - Final 07/20/24 23:35 Urine, Clean Catch Streptococcus pneumoniae Antigen (M - Final Laboratory Results 07/21/24 04:09: WBC 16.8 H, RBC 4.26 L, Hgb 13.4, Hct 39.6 L, MCV 93.0, MCH 31.5, MCHC 33.8, RDW Std Deviation 41.7, RDW Coeff of [place] 12.2, Plt Count 294, MPV 9.0, Immature Gran % (Auto) 0.500, Neut % (Auto) 91.9 H, Lymph % (Auto) 4.9 L, [place] % (Auto) 2.6, Eos % (Auto) 0.0, Baso % (Auto) 0.1, Absolute Neuts (auto) 15.4 H, Absolute Lymphs (auto) 0.83, Nucleated RBC % 0, Sodium 136, Potassium 4.2, Chloride 104, Carbon Dioxide 28.0, Anion Gap 4 L, BUN 13, Creatinine 0.67 L , Estim Creat Clear Calc 99.08, Est GFR (MDRD) Af Amer 158, Est GFR (MDRD) Non- Af 130, BUN/Creatinine Ratio 19.4, Glucose 168 H, Calcium 9.4 Clinical Impression(s) from Imaging Studies Chest X-Ray 07/20/24 10:20 IMPRESSION: COPD with lower lung edema or infiltrate. Small right pleural effusion Chest CTA 07/20/24 11:24 IMPRESSION: CTA chest examination, without a demonstrated pulmonary embolism or arterial dissection. Emphysema. Bilateral pneumonia. Electronically Signed: Chris Long MD at 12:31 EST , Charges/Coding Visit Charges Inpatient E&M: 45880 Subs Hosp L2
[2024-07-21] MEDS: FLU VACC 2024-25(6MOS UP)/PF 45 MCG/0.5 ML SYRINGE IM (17:18)
[2024-07-21] MEDS: Pantoprazole Sodium 40 MG Tablet PO (17:23)
[2024-07-21] MEDS: 0.9% Saline Lock 10 ML Syringe IV (21:22)
[2024-07-22 02:35] VITALS: BP 137/86; PULSE 99; RESP 22; TEMP 36.7; O2SAT 98
[2024-07-22 03:00] VITALS: O2SAT 97
[2024-07-22] MEDS: ALPRAZolam 0.5 MG Tablet PO (03:03)
[2024-07-22] MEDS: Ibuprofen 400 MG Tablet PO (03:05)
[2024-07-22] MEDS: 0.9% Saline Lock 10 ML Syringe IV ×2 (06:24→09:44)
[2024-07-22 06:46] LABS: Absolute Lymphocyte Count 1.06 X10^3/uL (0.83-4.51); Absolute Neutrophil Count 16.7 X10^3/uL (2.0-7.7); Basophil# 0.02 X10^3/uL; Basophil% 0.1 % (0-1); Hematocrit 37.4 % (40-54); Hemoglobin 12.3 g/dL (13.0-16.5); Lymphocyte # 1.06 X10^3/ul (0.83-4.51); Lymphocyte % 5.6 % (19-41); Mean Corp Hgb Conc 32.9 g/dL (32-36); Mean Corpuscular Hgb 31.1 pg (27.0-32.0); Mean Corpuscular Volume 94.7 fL (80-94); Mean Platelet Vol. 8.7 fl (6.2-12.0); Monocyte# 0.85 X10^3/uL; Monocyte% 4.5 % (0-10); NRBC Flagged by Analyzer 0 % (0-5); Neutrophil # 16.74 X10^3/uL (2.7-7.7); Neutrophil % 89.1 % (47-70); Platelet Count 305 K/mm3 (150-450); RBC Distribution Width CV 12.3 % (11.6-14.6); RBC Distribution Width SD 42.8 fl (35.1-43.9); Red Blood Count 3.95 M/mm3 (4.6-6.2); White Blood Count 18.8 K/mm3 (4.4-11.0)
[2024-07-22 07:13] LABS: Anion Gap 2 (5-15); BUN 19 mg/dL (7-18); BUN/Creat Ratio 27.6 RATIO (10-20); Calcium,Total 9.3 mg/dL (8.5-10.1); Chloride 103 mmol/L (98-107); Creatinine, Serum 0.69 mg/dL (0.70-1.30); EST Glomerular Filtration Rate 126 mL/min (>60); Est Glom Filt Rate - Afr Amer 153 mL/min (>60); Estimated Creatinine Clearance 96.21 ml/min; Glucose 154 mg/dL (74-106); Potassium 4.4 mmol/L (3.5-5.1); Sodium Level 137 mmol/L (136-145)
[2024-07-22 07:16] VITALS: O2SAT 96
[2024-07-22 08:36] VITALS: BP 144/86; PULSE 91; RESP 22; TEMP 36.3; O2SAT 97
--- NOTE | 2024-07-22 09:40 | PCM.DC ---
Discharge Instructions Diet Discharge Diet: 2000 mg Sodium Diet DC O2, CPAP, BIPAP needs Home O2 Discharge instructions: Yes Type of respiratory needs?: Oxygen Oxygen frequency: Continuous (3l/M) Continuous oxygen liters per minute: 3 l/M Dressing / Incision Discharge Activity: Return to Normal Activity Weight Bearing Status: Weight bearing as tolerated Dressing / Incision Call your doctor if you observe: Fever of 101 or Higher, Coldness, Increased Pain, Numbness or Tingling, Change in Color, Inability to urinate, Inability to have a bowel movement, Shortness of breath, Dizziness, Fainting spells, Swelling in the ankles, Chest pain, Prolonged hiccupping, Increased palpitations (irregular heartbeat) and Calf discomfort Follow Up Care When: IN 2 WEEKS Test Results: Test results from this visit will be discussed in further detail at your follow-up appointment, if applicable. Discharge Plan Admission Admit Date/Time: 07/20/24 13:28 Primary Reason for Your Visit: COPD exacerbation Attending Provider: Colton Gandhi Primary Care Provider: Ata Avelar Instructions Additional Instructions / Restrictions: Follow-up with her own quality control specialist Dr. Millie France in 2 weeks Discharge Orders/Prescriptions Prescriptions: New levofloxacin 500 mg tablet 500 mg PO DAILY 5 Days Qty: 5 0RF prednisone 20 mg tablet 40 mg PO DAILY 5 Days Qty: 10 0RF furosemide [Lasix] 20 mg tablet 20 mg PO DAILY 14 Days Qty: 14 0RF Continued aspirin 325 MG tablet 325 mg PO DAILY diphenhydramine HCl [Benadryl Allergy] 25 MG tablet 25 mg PO QHS Patient Comments: Pt states he takes 25mg morning and night. albuterol sulfate [Ventolin HFA] 1 INHALER inhaler 1 puff inhalation Q6H PRN PRN (Reason: Cough) multivitamin 1 EACH tablet 1 ea PO DAILY eyiczgkcblw-yltjhqizh-esiprybw 1 EACH blister with device 1 ea IH DAILY omeprazole 40 MG capsule,delayed release(DR/EC) 40 mg PO DAILY nicotine (polacrilex) 2 MG lozenge 2 mg BC DAILY PRN (Reason: nicotine cravings) mv-min-vit C-Glu-Talia [id number] 1 EACH tablet,chewable 1 ea PO DAILY lorazepam 1 MG tablet 1 mg PO Q8H PRN PRN (Reason: Anxiety) Qty: 14 0RF buspirone 10 mg tablet 10 mg PO TID montelukast 10 mg tablet 10 mg PO QHS guaifenesin 1,200 MG tablet 1,200 mg PO BID 7 Days Qty: 14 0RF Referrals / Follow Up: Ata Avelar MD [Primary Care Provider] - Within 2 Weeks (Has leg swelling. Given diuretic patient. Will need follow-up BMP) Disposition Disposition (needs filled in before D/C Order can be placed): Home, Self Care
[2024-07-22] MEDS: Furosemide 20 MG/2 ML VIAL IV (09:43)
[2024-07-22] MEDS: Enoxaparin 40 MG/0.4 ML Syringe SC (09:44)
[2024-07-22] MEDS: guaiFENesin 1,200 MG Tablet 1200 MG PO (09:45)
[2024-07-22] MEDS: Pantoprazole Sodium 40 MG Tablet PO (09:45)
[2024-07-22] MEDS: Ceftriaxone 2 GM in 0.9% Normal Saline (50mL MB+) 50 ML IV (09:46)
[2024-07-22] MEDS: busPIRone 5 MG Tablet 10 MG PO (09:46)
--- NOTE | 2024-07-22 09:48 | DS.PCM_ITS ---
Providers Date of Admission: 07/20/24 Date of Discharge: 07/22/24 Primary Care Physician: Dr. Ata Avelar MD Reason For Visit: BILATERAL PNEUMONIA, COPD EXACERBATION Diagnosis Discharge Diagnosis (1) COPD exacerbation: Status: Acute Code(s): J44.1 - Chronic obstructive pulmonary disease with (acute) exacerbation (2) Pneumonia: Status: Acute Code(s): J18.9 - Pneumonia, unspecified organism Plan This 58-year-old gentleman is being admitted for progressively worsening shortness of breath, productive cough and worsening dyspnea on exertion for 4 weeks and diagnosed pneumonia. 1. COPD exacerbation probably exacerbated by bilateral pneumonia: Patient is being admitted on Med[facility] floor. Chest x-ray and CTPA initially reviewed. No acute PE. Chronic emphysematous lungs. Mild fibrotic changes in lower lobe and consolidation in RML, RLL and left lingular lobe. Twelve-lead EKG individually reviewed and shows sinus tachycardia at 104 bpm, QTc 426 ms. Patient is being managed on scheduled bronchodilator, IV Solu-Medrol, Mucinex, incentive spirometry and Pep. 07/21: Triple PCR for SARS-CoV-2, flu and RSV are negative and respiratory panel are negative. Urinary antigens are negative. Continue above treatment. Continue incentive spirometry. 07/22: Patient is doing well. Shortness of breath is almost resolved. Prescription given for burst therapy of prednisone, Mucinex and levofloxacin. 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 Millie France in 2 weeks. 2. Bilateral, RML, RLL and left lingular pneumonia: Patient is started on IV ceftriaxone and azithromycin. As mentioned above. 07/22: As mentioned above 3. Chronic hypoxic respiratory failure: At home patient on 2.5 L/min. Currently 3 L/min. Continue oxygen therapy to keep pulse ox 90%. 07/21: Patient on 3 L of oxygen his baseline. 07/22 Home oxygen qualification test ordered. Currently on 3 L of oxygen. Patient also has mild leg swelling. Lasix 20 mg IV ordered. Prescription for 2 weeks of Lasix 20 mg oral ordered. Follow with PCP in 2 weeks 4. Chronic anxiety: Patient on lorazepam 1 mg Q8 hourly as needed for anxiety. 07/21 changed to Xanax 0.5 mg Q8 hourly as needed for anxiety. 5. Former smoker: Patient stated he quit smoking in 2019. Patient also complained of mild gastritis symptoms. On Mylanta as needed. Pantoprazole ordered DVT, moderate to high risk: Enoxaparin 40 mg subcu daily. Discharge medication reconciliation done. Discharge follow-up instructions completed. Discharge process discussed with the patient and all questions were answered to patient's satisfaction. Follow with PCP in 1 to 2 weeks Total time spent, exact 35 minutes on discharge meds reconciliation, examination, coordination of care with nurses and ancillary staff, review of imaging and blood test and discussion with the patient on follow-up instructions. Living will/advanced directive/end of life care: Patient does not have living will or advanced directive. He does not have daycare power of state's attorney for health. His presented ED is next to kin. After discussion of benefits/risks procedures involved with full code, DNR CC arrest and DNR CC, the patient opted for full code. Patient does want artificial life support including intubation, tube feed, ventilator and/chest compression, central venous catheter, vasopressor and DC shock if needed Microbiology Past 72 Hours 07/20/24 22:20 Nasal Secretion MRSA (PCR) - Final 07/20/24 23:00 Mucosa - Nasopharyngeal SARS-CoV-2, Influenza & RSV (PCR) - Final 07/20/24 23:35 Urine, Clean Catch Legionella Antigen - Final 07/20/24 23:35 Urine, Clean Catch Streptococcus pneumoniae Antigen (M - Final Laboratory Results 07/21/24 04:09: WBC 16.8 H, RBC 4.26 L, Hgb 13.4, Hct 39.6 L, MCV 93.0, MCH 31.5, MCHC 33.8, RDW Std Deviation 41.7, RDW Coeff of [place] 12.2, Plt Count 294, MPV 9.0, Immature Gran % (Auto) 0.500, Neut % (Auto) 91.9 H, Lymph % (Auto) 4.9 L, [place] % (Auto) 2.6, Eos % (Auto) 0.0, Baso % (Auto) 0.1, Absolute Neuts (auto) 15.4 H, Absolute Lymphs (auto) 0.83, Nucleated RBC % 0, Sodium 136, Potassium 4.2, Chloride 104, Carbon Dioxide 28.0, Anion Gap 4 L, BUN 13, Creatinine 0.67 L , Estim Creat Clear Calc 99.08, Est GFR (MDRD) Af Amer 158, Est GFR (MDRD) Non- Af 130, BUN/Creatinine Ratio 19.4, Glucose 168 H, Calcium 9.4 Clinical Impression(s) from Imaging Studies Chest X-Ray 07/20/24 10:20 IMPRESSION: COPD with lower lung edema or infiltrate. Small right pleural effusion Chest CTA 07/20/24 11:24 IMPRESSION: CTA chest examination, without a demonstrated pulmonary embolism or arterial dissection. Emphysema. Bilateral pneumonia. Electronically Signed: Chris Long MD at 12:31 EST , Medications at Discharge Home Medications aspirin 325 mg tablet 325 mg PO DAILY heart health 06/30/15 albuterol sulfate 90 mcg/actuation aerosol inhaler (Ventolin HFA) 1 puff inhalation Q6H PRN PRN Cough 01/05/16 diphenhydramine HCl 25 mg tablet (Benadryl Allergy) 25 mg PO QHS sleep 01/05/16 fluticasone fur. 100 mcg-umeclid 62.5 mcg-vilant 25 mcg inhalat.powder 1 ea IH DAILY lungs 08/25/19 multivitamin 1 ea PO DAILY supplement 08/25/19 mv-min-vit W-bqfw-eopeep nereida-herb #124 250 mg-12.5 mg chewable tablet 1 ea PO DAILY supplement 08/25/19 nicotine (polacrilex) 2 mg buccal lozenge 2 mg BC DAILY PRN nicotine cravings 08/25/19 omeprazole 40 mg capsule,delayed release 40 mg PO DAILY GERD 08/25/19 lorazepam 1 mg tablet 1 mg PO Q8H PRN PRN Anxiety #14 tabs 08/29/19 buspirone 10 mg tablet 10 mg PO TID anxiety 07/20/24 montelukast 10 mg tablet 10 mg PO QHS Pulmonary 07/20/24 furosemide 20 mg tablet (Lasix) 20 mg PO DAILY 2 weeks #14 tabs 07/22/24 guaifenesin 1,200 mg tablet, extended release 12 hr 1,200 mg PO BID thins secretions 7 days #14 tabs 07/22/24 levofloxacin 500 mg tablet 500 mg PO DAILY 5 days #5 tabs 07/22/24 prednisone 20 mg tablet 40 mg (2 x 20 mg) PO DAILY 5 days #10 tabs 07/22/24 Physical Exam Narrative Seen and examined. Shortness of breath has improved. Sitting upright. No respiratory distress. Wants to go home. Physical exam: General: Alert, Oriented x3, Cooperative, comfortably laying on the bed. HEENT: Atraumatic, PERRLA, EOMI, Normocephalic Oral: Oral mucosa dry. No Gingival or Mucosal Lesions/ Ulcerations Neck: Supple, No JVD, Negative Carotid Bruits Chest wall/Lungs: Air entry diminished in bilateral lung bases. Mild expiratory rhonchi Cardiovascular: Normal rate and rhythm, normal S1, Normal S2, No M/G/R Abdomen: Bowel Sounds Present, Soft, Non Tender, Non-Distended : No dysuria. No renal angle tenderness. No suprapubic tenderness. Extremities: Bilateral ankle pitting edema, Capillary Refill Less than 3 Seconds Skin: No rashes, No breakdown Musculoskeletal: No Tenderness to Palpation of Joints or Extremities Neurological: Cranial nerves II-XII grossly intact, DTR 2+/4. No acute focal neurological deficit. Psych/Mental Status: Flat affect, anxious Weight / BMI Weight Weight: 138 lb 7.205 oz Body Mass Index (BMI) 24.5 ABG / Lab / Microbiology Data 07/22/24 06:09 07/22/24 06:09 Laboratory: Laboratory Results - last 24 hr 07/22/24 06:09: WBC 18.8 H, RBC 3.95 L, Hgb 12.3 L, Hct 37.4 L, MCV 94.7 H, MCH 31.1, MCHC 32.9, RDW Std Deviation 42.8, RDW Coeff of [place] 12.3, Plt Count 305, MPV 8.7, Immature Gran % (Auto) 0.700, Neut % (Auto) 89.1 H, Lymph % (Auto) 5.6 L, Sebastian % (Auto) 4.5, Eos % (Auto) 0.0, Baso % (Auto) 0.1, Absolute Neuts (auto) 16.7 H, Absolute Lymphs (auto) 1.06, Nucleated RBC % 0, Sodium 137, Potassium 4.4, Chloride 103, Carbon Dioxide 32.0, Anion Gap 2 L, BUN 19 H, Creatinine 0.69 L, Estim Creat Clear Calc 96.21, Est GFR (MDRD) Af Amer 153, Est GFR (MDRD) Non- Af 126, BUN/Creatinine Ratio 27.6 H, Glucose 154 H, Calcium 9.3 Microbiology: Microbiology 07/20/24 22:20 Nasal Secretion MRSA (PCR) - Final 07/20/24 23:00 Mucosa - Nasopharyngeal SARS-CoV-2, Influenza & RSV (PCR) - Final 07/20/24 23:35 Urine, Clean Catch Legionella Antigen - Final 07/20/24 23:35 Urine, Clean Catch Streptococcus pneumoniae Antigen (M - Final D/C Instructions Discharge Diet: 2000 mg Sodium Diet Weight Bearing Status: Weight bearing as tolerated Call your doctor if you observe: Fever of 101 or Higher, Coldness, Increased Pain, Numbness or Tingling, Change in Color, Inability to urinate, Inability to have a bowel movement, Shortness of breath, Dizziness, Fainting spells, Swelling in the ankles, Chest pain, Prolonged hiccupping, Increased palpitations (irregular heartbeat) and Calf discomfort DC O2, CPAP, BIPAP Needs Home O2 Discharge instructions: Yes Type of respiratory needs?: Oxygen Oxygen frequency: Continuous (3l/M) Continuous oxygen liters per minute: 3 l/M DC home with Oxygen: Yes Home O2 MD Review: I have reviewed the oxygen testing, and the patient qualifies for home oxygen equipment and portability. The patient is mobile in the home and the community. When: IN 2 WEEKS Meaningful Use Info Meaningful Use Meaningful Use Diagnoses (Choose all that apply): None applicable Ischemic Stroke Statin Dosing Therapy Reference: STATIN DOSE THERAPY REFERENCE: * Patients > 75 years receive moderate or high dose statin therapy. * Patients 75 years or YOUNGER should receive HIGH intensity statin dose unless contraindicated. You will be required to document reason for non-treatment if statin daily dose does not meet guidelines. 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 Millie France in 2 weeks Discharge Orders/Prescriptions Prescriptions: New levofloxacin 500 mg tablet 500 mg PO DAILY 5 Days Qty: 5 0RF prednisone 20 mg tablet 40 mg PO DAILY 5 Days Qty: 10 0RF furosemide [Lasix] 20 mg tablet 20 mg PO DAILY 14 Days Qty: 14 0RF Continued aspirin 325 MG tablet 325 mg PO DAILY diphenhydramine HCl [Benadryl Allergy] 25 MG tablet 25 mg PO QHS Patient Comments: Pt states he takes 25mg morning and night. albuterol sulfate [Ventolin HFA] 1 INHALER inhaler 1 puff inhalation Q6H PRN PRN (Reason: Cough) multivitamin 1 EACH tablet 1 ea PO DAILY rzimrjqbqfq-gusnssrym-mlrreilf 1 EACH blister with device 1 ea IH DAILY omeprazole 40 MG capsule,delayed release(DR/EC) 40 mg PO DAILY nicotine (polacrilex) 2 MG lozenge 2 mg BC DAILY PRN (Reason: nicotine cravings) mv-min-vit C-Glu-Talia [id number] 1 EACH tablet,chewable 1 ea PO DAILY lorazepam 1 MG tablet 1 mg PO Q8H PRN PRN (Reason: Anxiety) Qty: 14 0RF buspirone 10 mg tablet 10 mg PO TID montelukast 10 mg tablet 10 mg PO QHS guaifenesin 1,200 MG tablet 1,200 mg PO BID 7 Days Qty: 14 0RF Referrals / Follow Up: Ata Avelar MD [Primary Care Provider] - Within 2 Weeks (Has leg swelling. Given diuretic patient. Will need follow-up BMP) Disposition Disposition (needs filled in before D/C Order can be placed): Home, Self Care Charges/Coding Visit Charges Inpatient E&M: 93685 Disch Hosp >30min
[2024-07-22 10:03] VITALS: O2SAT 89; O2SAT 93
--- NOTE | 2024-07-22 10:05 | CASEMGMT ---
JALEEL MCNEIL to see Pt, Pt is walking the halls with RN. Pt states has a portable tank that family will bring in when they pick him up.
[2024-07-22] MEDS: Azithromycin 500 MG in 0.9% Normal Saline (250mL Bag) 250 ML 255 MG IV (10:26)
--- NOTE | 2024-07-22 10:57 | PHA.DC_ITS ---
Pharmacy [facility] has performed discharge medication reconciliation and counseling for this patient. 1. FUROSEMIDE 20MG PO DAILY X 14 DAYS 2. LEVOFLOXACIN 500MG PO DAILY X 5 DAYS 3. PREDNISONE 40MG PO DAILYCM X 5 DAYS The patient's discharge medication list was reviewed for discrepancies and discrepancies were resolved. The patient was counseled on the following discharge medications and changes in medications for homegoing were reviewed. The Reason for Use, instructions for use, and potential side effects were reviewed for all new medications. The patient's questions regarding all of their medications were answered. The patient was able to verbally demonstrate an understanding of their discharge medications. Medications at Discharge Home Medications aspirin 325 mg tablet 325 mg PO DAILY heart health 06/30/15 albuterol sulfate 90 mcg/actuation aerosol inhaler (Ventolin HFA) 1 puff inhalation Q6H PRN PRN Cough 01/05/16 diphenhydramine HCl 25 mg tablet (Benadryl Allergy) 25 mg PO QHS sleep 01/05/16 fluticasone fur. 100 mcg-umeclid 62.5 mcg-vilant 25 mcg inhalat.powder 1 ea IH DAILY lungs 08/25/19 multivitamin 1 ea PO DAILY supplement 08/25/19 mv-min-vit V-sucx-ipqufk nereida-herb #124 250 mg-12.5 mg chewable tablet 1 ea PO DAILY supplement 08/25/19 nicotine (polacrilex) 2 mg buccal lozenge 2 mg BC DAILY PRN nicotine cravings 08/25/19 omeprazole 40 mg capsule,delayed release 40 mg PO DAILY GERD 08/25/19 lorazepam 1 mg tablet 1 mg PO Q8H PRN PRN Anxiety #14 tabs 08/29/19 buspirone 10 mg tablet 10 mg PO TID anxiety 07/20/24 montelukast 10 mg tablet 10 mg PO QHS Pulmonary 07/20/24 furosemide 20 mg tablet (Lasix) 20 mg PO DAILY 2 weeks #14 tabs 07/22/24 guaifenesin 1,200 mg tablet, extended release 12 hr 1,200 mg PO BID thins secretions 7 days #14 tabs 07/22/24 levofloxacin 500 mg tablet 500 mg PO DAILY 5 days #5 tabs 07/22/24 prednisone 20 mg tablet 40 mg (2 x 20 mg) PO DAILY 5 days #10 tabs 07/22/24
== END 2024-07-22 14:03 | disposition home or self-care (01) | DRG 194 ==
LOC: ED 12:39 → MS3 14:17
PROVIDERS: Admitting Provider Internal Medicine; Emergency Provider Emergency Medicine; PCP Family Medicine; Visit Provider Internal Medicine
DX: J18.9 Pneumonia, unspecified organism (principal); J96.11 Chronic respiratory failure with hypoxia; J44.1 Chronic obstructive pulmonary disease with (acute) exacerbation; J44.0 Chronic obstructive pulmonary disease with (acute) lower respiratory infection; Z99.81 Dependence on supplemental oxygen; F41.9 Anxiety disorder, unspecified; K29.70 Gastritis, unspecified, without bleeding; Z87.891 Personal history of nicotine dependence; Z79.51 Long term (current) use of inhaled steroids; Z23 Encounter for immunization; Z79.899 Other long term (current) drug therapy
CPT/HCPCS: 36415; 71045; 71275; 80048; 80076; 82962; 83605; 83880; 84484; 85025; 87040; 87070; 87077; 87186; 87205; 87449; 87631; 87641; 90656; 93005; 94640; 94668; 97802; 99284; Q9967; A4216; J0696; J1940

== ENCOUNTER 2025-02-21 16:26 | Inpatient (IN) | payer BC, SELFPAY ==
[2025-02-21] VITALS (12 sets, daily range): BP systolic 124–170; BP diastolic 74–148; PULSE 71–107; RESP 12–34; TEMP 36.4–36.9; O2SAT 92–98; BMI 24.3; BMI 24.7
--- NOTE | 2025-02-21 17:08 | EKG12_ITS ---
Test Reason : DYSRHYTHMIA Blood Pressure : */* mmHG Vent. Rate : 97 BPM Atrial Rate : 97 BPM P-R Int : 134 ms QRS Dur : 76 ms QT Int : 348 ms P-R-T Axes : 79 69 57 degrees QTcB Int : 441 ms Normal sinus rhythm Normal ECG Confirmed by JEREMIAH SANDERS, ROSANNA ([id number]), manuscript editor REBEL MATHEW ([id number]) on 02/24/2025 7:33:06 AM Referred By: Confirmed By: ROSANNA DANIELS MD
[2025-02-21] MEDS: Albuterol 2.5 MG/3 ML VIAL.NEB. INHALATION ×3 (17:15→17:16)
[2025-02-21 17:21] LABS: Hematocrit 42.1 % (40-54); Hemoglobin 14.2 g/dL (13.0-16.5); Immature Granulocytes Count 0.050 X10^3/uL (0.0-0.0); Mean Corp Hgb Conc 33.7 g/dL (32-36); Mean Corpuscular Volume 90.0 fL (80-94); Mean Platelet Vol. 9.3 fl (6.2-12.0); NRBC Flagged by Analyzer 0 % (0-5); Platelet Count 341 K/mm3 (150-450); RBC Distribution Width CV 12.8 % (11.6-14.6); RBC Distribution Width SD 42.0 fl (35.1-43.9); Red Blood Count 4.68 M/mm3 (4.6-6.2); White Blood Count 13.2 K/mm3 (4.4-11.0)
[2025-02-21 17:39] LABS: Troponin T High Sensitivity 14 ng/L (<=22)
[2025-02-21 17:40] LABS: Anion Gap 13 (5-15); BUN 7 mg/dL (4-19); BUN/Creat Ratio 10.8 RATIO (10-20); Calcium,Total 9.4 mg/dL (7.6-11.0); Carbon Dioxide 26.4 mmol/L (21.0-32.0); Chloride 101 mmol/L (98-108); Estimated Creatinine Clearance 96.46 ml/min (50-250); Glucose 93 mg/dL (70-99); Potassium 3.9 mmol/L (3.3-5.1)
[2025-02-21 18:01] LABS: SITE Not entered; VBG BASE EXCESS 11 mmol/L (-1.0-3.5); VBG PO2 34 mmHg (25-40); VBG SO2 65 % (50-70); VBG TCO2 37 mmol/L (23-33)
--- NOTE | 2025-02-21 18:01 | ED.RN ---
pt refusing to get in bed, pt insisting he needs to eat, pt visibly in distress breathing, pt demanding food. this rn checks bgt at 92. pt still demanding to eat, nurse educating pt on eating before test results, and risk of aspiration d/t sob. pt being rude to this nurse and rt matthew. notified. pt given an applesauce
--- NOTE | 2025-02-21 18:03 | ED.RN ---
pt refusing to get in bed for xray
--- NOTE | 2025-02-21 18:18 | RAD_ITS ---
PROCEDURE: CHEST 1 VIEW 02/21/2025 REASON FOR EXAM: SOB TECHNIQUE: Frontal view of the chest. COMPARISON: 07/20/2019 FINDINGS: Hardware: None. Heart: The heart size is normal. Lungs: Bibasilar consolidation and atelectasis. Trace right and small left pleural effusions. No definite pneumothorax. Bones: The bones are unremarkable. RAD/Chest 1 View IMPRESSION: 1. Bibasilar consolidation and atelectasis. 2. Trace right and small left pleural effusions. Reading [facility]
--- NOTE | 2025-02-21 18:37 | ED.VIS.DYS ---
HPI <CHRISTIANE Mckeon - Last Filed: 02/21/25 20:48> History of Present Illness Chief Complaint: Shortness of Breath Narrative Narrative: Patient presenting today with shortness of breath that has been progressively worsening over the last several weeks. He has a history of COPD, he no longer smokes tobacco. He has concerns that he has pneumonia reports that his symptoms feel consistent with previous episodes of pneumonia. He has had a productive cough of green-colored sputum. He does use 2.5 L supplemental O2 at baseline. He reports that despite O2 supplementation he is still feeling short of breath and therefore presents for evaluation. He denies any history of blood clots or recent surgery/travel/immobilization. He denies fevers, chills, chest pain. PFS <CHRISTIANE Mckeon - Last Filed: 02/21/25 20:48> [facility] Medical History Brain aneurysm Anxiety and depression Former tobacco use Chronic hypoxic respiratory failure, on home oxygen therapy COPD (chronic obstructive pulmonary disease) Home Medications ?Medication ?Instructions ?Recorded ?Last Taken ?Type albuterol sulfate 90 mcg/actuation 1 puff inhalation Q6H PRN PRN Cough 01/05/16 07/20/24 08:00 History aerosol inhaler (Ventolin HFA) 1 puff multivitamin 1 ea PO DAILY supplement 08/25/19 07/20/24 10:00 History 1 ea mv-min-vit I-mxkj-zcckus nereida-herb 1 ea PO DAILY supplement 08/25/19 07/20/24 10:00 History #124 250 mg-12.5 mg chewable tablet 1 ea buspirone 10 mg tablet 10 mg PO BID anxiety 07/20/24 07/20/24 10:00 History 10 mg montelukast 10 mg tablet 10 mg PO QHS Pulmonary 07/20/24 07/19/24 22:00 History 10 mg furosemide 20 mg tablet (Lasix) 20 mg PO DAILY 2 weeks #14 tabs 07/22/24 Unknown Rx guaifenesin 1,200 mg tablet, 1,200 mg PO BID thins secretions 7 07/22/24 Unknown Rx extended release 12 hr days #14 tabs levofloxacin 500 mg tablet 500 mg PO DAILY 5 days #5 tabs 07/22/24 Unknown Rx aspirin 81 mg tablet 81 mg PO DAILY 02/21/25 Unknown History benzonatate 100 mg capsule 100 mg PO TID PRN PRN cough 02/21/25 Unknown History budesonide 0.5 mg/2 mL suspension 0.5 mg inhalation Q12H PRN sob 02/21/25 Unknown History for nebulization fluticasone fur. 200 mcg-umeclid 1 ea inhalation DAILY 02/21/25 Unknown History 62.5 mcg-vilant 25 mcg inhalat.powder (Trelegy Ellipta) ipratropium 0.5 mg-albuterol 3 mg 3 ml inhalation Q6H PRN PRN 02/21/25 Unknown History (2.5 mg base)/3 mL nebulization wheezing soln loratadine 10 mg capsule 10 mg PO DAILY 02/21/25 Unknown History pantoprazole 40 mg tablet,delayed 40 mg PO DAILY 02/21/25 Unknown History release trazodone 50 mg tablet 50 mg PO QHS 02/21/25 Unknown History Allergy/AdvReac Type Severity Reaction Status Date / Time codeine Allergy Unknown Verified 02/21/25 16:29 Penicillins Allergy Unknown Verified 02/21/25 16:29 Family History (Updated 02/21/25 @ 20:[address] Lynn Duke MD) Mother Diabetes Father CAD (coronary artery disease) Heart disease Hypertension Surgical History History of brain surgery Social History (Updated 02/21/25 @ 20:[address] Lynn Duke MD) household members: spouse housing: house Smoking Status: Former smoker how long ago did patient quit smoking: Quit 2014, smoked 1-2 ppd since teen until quit. alcohol intake: current alcohol intake frequency: holidays/special occasions only substance use type: does not use ROS <CHRISTIANE Mckeon - Last Filed: 02/21/25 20:48> ROS ED Constitutional Constitutional ED: Denies chills or fever(s) Cardiovascular Cardiovascular: Denies chest pain Respiratory/Chest Respiratory/Chest: Reports cough, dyspnea, dyspnea on exertion, sputum and tachypnea Gastrointestinal Gastrointestinal: Denies abdominal pain, nausea or vomiting Neurologic Neurologic: Denies weakness EXAM <CHRISTIANE Mckeon - Last Filed: 02/21/25 20:48> Physical Exam Const Vital Signs: 08/22/25 16:27 02/21/25 17:14 02/21/25 17:14 Temperature 98.2 F 97.8 F Temperature Source Oral Oral Pulse Rate 102 H 100 Respiratory Rate 22 H 24 H Respiratory Effort Respiratory Depth Respiratory Pattern Blood Pressure 170/96 H 124/78 H Blood Pressure Mean 120 93 Pulse Ox 92 92 Oxygen Delivery Method Nasal Cannula Nasal Cannula Nasal Cannula Oxygen Flow Rate (L/min) 2 2 2 Fraction of Inspired Oxygen (FIO2) 02/21/25 17:14 02/21/25 17:15 02/21/25 17:15 Temperature Temperature Source Pulse Rate 107 H Respiratory Rate 33 H Respiratory Effort Short of Breath Labored Respiratory Depth Shallow Respiratory Pattern Tachypnea Blood Pressure Blood Pressure Mean Pulse Ox 95 Oxygen Delivery Method Nasal Cannula Nasal Cannula Oxygen Flow Rate (L/min) 2 2.5 Fraction of Inspired Oxygen (FIO2) 02/21/25 17:15 02/21/25 18:00 02/21/25 19:00 Temperature 98.5 F Temperature Source Oral Pulse Rate 97 97 Respiratory Rate 34 H 23 H 33 H Respiratory Effort Short of Breath Labored Accessory Muscle Use Pursed Lip Retracting Respiratory Depth Shallow Respiratory Pattern Tachypnea Blood Pressure 155/74 H 151/89 H Blood Pressure Mean 101 109 Pulse Ox 95 96 96 Oxygen Delivery Method Nasal Cannula Nasal Cannula Nasal Cannula Oxygen Flow Rate (L/min) 2.5 3 Fraction of Inspired Oxygen (FIO2) 02/21/25 19:30 Temperature Temperature Source Pulse Rate 93 Respiratory Rate 24 H Respiratory Effort Respiratory Depth Respiratory Pattern Tachypnea Blood Pressure Blood Pressure Mean Pulse Ox 97 Oxygen Delivery Method Oxygen Flow Rate (L/min) Fraction of Inspired Oxygen (FIO2) 30 Positive well nourished, well developed and no apparent distress General Appearance ED: well developed HEENT Reports normocephalic and head/scalp atraumatic Mouth ED: Yes moist mucous membranes normal Eyes PERRL and EOMs intact bilaterally Neck full ROM and supple Chest Wall inspection of chest normal Resp Resp Narrative: Decreased air movement bilaterally, tachypnea, use of accessory muscles Effort and Inspection: tripod positioning Cardio regular rate and regular rhythm Back/Spine normal ROM and normal to inspection Extremity normal to inspection and full ROM Neuro oriented x3, CN's II-XII intact bilaterally, moves all extremities, no focal motor deficits and no sensory deficits noted Sensorium / Orientation: awake and alert Psych mental status grossly normal and thought process normal Skin no rashes or lesions noted and no wounds <Dr. Haider Yee DO - Last Filed: 02/21/25 22:02> Physical Exam Const Vital Signs: 02/21/25 16:27 02/21/25 17:14 02/21/25 17:14 Temperature 98.2 F 97.8 F Temperature Source Oral Oral Pulse Rate 102 H 100 Respiratory Rate 22 H 24 H Respiratory Effort Respiratory Depth Respiratory Pattern Blood Pressure 170/96 H 124/78 H Blood Pressure Mean 120 93 Pulse Ox 92 92 Oxygen Delivery Method Nasal Cannula Nasal Cannula Nasal Cannula Oxygen Flow Rate (L/min) 2 2 2 Fraction of Inspired Oxygen (FIO2) 02/21/25 17:14 02/21/25 17:15 02/21/25 17:15 Temperature Temperature Source Pulse Rate 107 H Respiratory Rate 33 H Respiratory Effort Short of Breath Labored Respiratory Depth Shallow Respiratory Pattern Tachypnea Blood Pressure Blood Pressure Mean Pulse Ox 95 Oxygen Delivery Method Nasal Cannula Nasal Cannula Oxygen Flow Rate (L/min) 2 2.5 Fraction of Inspired Oxygen (FIO2) 02/21/25 17:15 02/21/25 18:00 02/21/25 19:00 Temperature 98.5 F Temperature Source Oral Pulse Rate 97 97 Respiratory Rate 34 H 23 H 33 H Respiratory Effort Short of Breath Labored Accessory Muscle Use Pursed Lip Retracting Respiratory Depth Shallow Respiratory Pattern Tachypnea Blood Pressure 155/74 H 151/89 H Blood Pressure Mean 101 109 Pulse Ox 95 96 96 Oxygen Delivery Method Nasal Cannula Nasal Cannula Nasal Cannula Oxygen Flow Rate (L/min) 2.5 3 Fraction of Inspired Oxygen (FIO2) 02/21/25 19:30 Temperature Temperature Source Pulse Rate 93 Respiratory Rate 24 H Respiratory Effort Respiratory Depth Respiratory Pattern Tachypnea Blood Pressure Blood Pressure Mean Pulse Ox 97 Oxygen Delivery Method Oxygen Flow Rate (L/min) Fraction of Inspired Oxygen (FIO2) 30 [facility] <CHRISTIANE Mckeon - Last Filed: 02/21/25 20:48> [facility] Narrative Medical decision making narrative: Patient presenting today due to breath that has been ongoing for several weeks but progressively worsening. He does have conversational dyspnea, he is tripoding in the room and using accessory muscles to breathe. He has decreased air movement bilaterally. His O2 saturation has remained above 92% on his normal 2.5 L. Chest x-ray obtained, this shows bibasilar consolidation with trace bilateral pleural effusions, he does have a leukocytosis of 13.2, BNP, BMP, lactic acid, and troponin are unremarkable. Blood cultures obtained and patient was given IV Rocephin and azithromycin. Lower suspicion for PE at this time. He was given albuterol and DuoNeb breathing treatments as well as IV Solu-Medrol. VBG obtained, his CO2 is 37, bicarb is 35. I did recommend BiPAP given his difficulty breathing, he was very resistant to this at first due to his history of anxiety. He was given a small dose of Ativan and then was agreeable to trying the BiPAP. On reexamination he is tolerating this well. At this point he will be admitted to the hospital in stable condition. Lab Data Attestation: I reviewed the patient's lab results. Labs: Laboratory Results - last 24 hr 02/21/25 02/21/25 02/21/25 16:58 17:35 18:55 WBC 13.2 H RBC 4.68 Hgb 14.2 Hct 42.1 MCV 90.0 MCH 30.3 MCHC 33.7 RDW Std Deviation 42.0 RDW Coeff of [place] 12.8 Plt Count 341 MPV 9.3 Immature Gran % (Auto) 0.400 Neut % (Auto) 78.6 H Lymph % (Auto) 9.8 L [place] % (Auto) 9.0 Eos % (Auto) 1.7 Baso % (Auto) 0.5 Absolute Neuts (auto) 10.4 H Absolute Lymphs (auto) 1.29 Nucleated RBC % 0 Sodium 140 Potassium 3.9 Chloride 101 Carbon Dioxide 26.4 Anion Gap 13 BUN 7 Creatinine 0.68 L Estim Creat Clear Calc 96.46 Est GFR (MDRD) Non-Af 108 BUN/Creatinine Ratio 10.8 Glucose 93 Lactic Acid Calcium 9.4 Troponin T High Sens 14 Troponin T Hi Sens 2 Hr 13 NT pro BNP II 49 Procalcitonin 0.10 POC Glucose 92 02/21/25 19:15 WBC RBC Hgb Hct MCV MCH MCHC RDW Std Deviation RDW Coeff of [place] Plt Count MPV Immature Gran % (Auto) Neut % (Auto) Lymph % (Auto) [place] % (Auto) Eos % (Auto) Baso % (Auto) Absolute Neuts (auto) Absolute Lymphs (auto) Nucleated RBC % Sodium Potassium Chloride Carbon Dioxide Anion Gap BUN Creatinine Estim Creat Clear Calc Est GFR (MDRD) Non-Af BUN/Creatinine Ratio Glucose Lactic Acid 1.3 Calcium Troponin T High Sens Troponin T Hi Sens 2 Hr NT pro BNP II Procalcitonin POC Glucose ABG Data ABG results: ABG 02/21/25 17:58 Specimen Type BETO Sample Site Not entered VBG pH 7.41 VBG pO2 34 VBG HCO3 35 H VBG Total CO2 37 H VBG O2 Sat (Calc) 65 VBG Base Excess 11 H POC Mix VBG pCO2 Pt Tmp 56.0 H O2 Delivery Device Not entered Radiography X-Ray: Read by ED Physician Diagnostic Testing: Clinical Impression(s) from Imaging Studies Chest X-Ray 02/21/25 18:18 IMPRESSION: 1. Bibasilar consolidation and atelectasis. 2. Trace right and small left pleural effusions. Reading Location: [facility] EKG Initial EKG: Comments: 97 bpm, normal sinus rhythm, no ST elevation <Dr. Haider Yee, DO - Last Filed: 02/21/25 22:02> MDM MDM Narrative Medical decision making narrative: Patient presenting today due to breath that has been ongoing for several weeks but progressively worsening. He does have conversational dyspnea, he is tripoding in the room and using accessory muscles to breathe. He has decreased air movement bilaterally. His O2 saturation has remained above 92% on his normal 2.5 L. Chest x-ray obtained, this shows bibasilar consolidation with trace bilateral pleural effusions, he does have a leukocytosis of 13.2, BNP, BMP, lactic acid, and troponin are unremarkable. Blood cultures obtained and patient was given IV Rocephin and azithromycin. Lower suspicion for PE at this time. He was given albuterol and DuoNeb breathing treatments as well as IV Solu-Medrol. VBG obtained, his CO2 is 37, bicarb is 35. I did recommend BiPAP given his difficulty breathing, he was very resistant to this at first due to his history of anxiety. He was given a small dose of Ativan and then was agreeable to trying the BiPAP. On reexamination he is tolerating this well. At this point he will be admitted to the hospital (PCU) in stable condition. Lab Data Labs: Laboratory Results - last 24 hr 02/21/25 02/21/25 02/21/25 16:58 17:35 18:55 WBC 13.2 H RBC 4.68 Hgb 14.2 Hct 42.1 MCV 90.0 MCH 30.3 MCHC 33.7 RDW Std Deviation 42.0 RDW Coeff of [place] 12.8 Plt Count 341 MPV 9.3 Immature Gran % (Auto) 0.400 Neut % (Auto) 78.6 H Lymph % (Auto) 9.8 L [place] % (Auto) 9.0 Eos % (Auto) 1.7 Baso % (Auto) 0.5 Absolute Neuts (auto) 10.4 H Absolute Lymphs (auto) 1.29 Nucleated RBC % 0 Sodium 140 Potassium 3.9 Chloride 101 Carbon Dioxide 26.4 Anion Gap 13 BUN 7 Creatinine 0.68 L Estim Creat Clear Calc 96.46 Est GFR (MDRD) Non-Af 108 BUN/Creatinine Ratio 10.8 Glucose 93 Lactic Acid Calcium 9.4 Troponin T High Sens 14 Troponin T Hi Sens 2 Hr 13 NT pro BNP II 49 Procalcitonin 0.10 POC Glucose 92 02/21/25 19:15 WBC RBC Hgb Hct MCV MCH MCHC RDW Std Deviation RDW Coeff of [place] Plt Count MPV Immature Gran % (Auto) Neut % (Auto) Lymph % (Auto) [place] % (Auto) Eos % (Auto) Baso % (Auto) Absolute Neuts (auto) Absolute Lymphs (auto) Nucleated RBC % Sodium Potassium Chloride Carbon Dioxide Anion Gap BUN Creatinine Estim Creat Clear Calc Est GFR (MDRD) Non-Af BUN/Creatinine Ratio Glucose Lactic Acid 1.3 Calcium Troponin T High Sens Troponin T Hi Sens 2 Hr NT pro BNP II Procalcitonin POC Glucose ABG Data ABG results: ABG 02/21/25 17:58 Specimen Type BETO Sample Site Not entered VBG pH 7.41 VBG pO2 34 VBG HCO3 35 H VBG Total CO2 37 H VBG O2 Sat (Calc) 65 VBG Base Excess 11 H POC Mix VBG pCO2 Pt Tmp 56.0 H O2 Delivery Device Not entered Radiography Chest X-Ray - ED: Read by ED Physician Diagnostic Testing: Clinical Impression(s) from Imaging Studies Chest X-Ray 02/21/25 18:18 IMPRESSION: 1. Bibasilar consolidation and atelectasis. 2. Trace right and small left pleural effusions. Reading Location: [facility] Discharge Plan Dx/Rx/DC Orders Clinical Impression: Pneumonia, COPD (chronic obstructive pulmonary disease), Respiratory distress Disposition Disposition: Acute Care Hospital [facility] Discharge Date/Time: 02/21/25 20:39
[2025-02-21 19:49] LABS: Pro- Brain NATRIURETIC PEPTIDE 49 pg/mL (<=900)
--- NOTE | 2025-02-21 19:55 | PCM.HP.STD ---
HPI - General General Date of Admission: 02/21/25 Date of Service: 02/21/25 Chief Complaint: Dyspnea, cough, wheezing. HPI Narrative The patient is a 59 y/o M w/ PMHx: Hx Brain Aneurysm s/p clipping x 2, Chronic hypoxic respiratory failure (2.5 to 3 L NC) with COPD with allergic rhinitis, Anxiety and Depression, HTN, GERD, Former tobacco use who presents to the [facility] ED on 02/21/2025 with history of progressively worsening dyspnea, wheezing, mildly productive cough over the last several days and given worsened status prompted urgent care initially however he had significant tachycardia and hypoxia prompting referral to the ED immediately. He notes that his has not been ill. Workup in the ED included T98.2, heart rate 102, BP 170/96, respiratory rate 22, 92% on 2 L nasal cannula eventually placed on BiPAP given significant work of breathing and respiratory distress noted to be 97% on 30% FiO2 with most recent repeat vitals T98.5, heart rate 89, BP 138/92, respiratory rate 25, 97% on 30% FiO2 BiPAP, CBC with WBC 13.2, hemoglobin 14.2, platelet 341 with left shift, VBG with bicarb 35, total CO2 37, O2 65%, mixed VBG pCO2 56, BMP with BUN/creatinine 7/0.68, GFR 108, lactic acid 1.3, troponin initial 14 with repeat delta 13, NT proBNP II 49, EKG with sinus rhythm with no acute evidence of ischemia, chest x-ray with bibasilar consolidation and atelectasis with trace right and small left pleural effusion, blood culture x 2 and full respiratory panel pending per ED. In the ED patient ministered Solu-Medrol 125 mg IV x 1, lorazepam 0.5 mg IV x 1 administered secondary to anxiety with BiPAP, DuoNeb therapy, azithromycin 500 mg IV x 1, Rocephin 1 g IV x 1. [facility] Medical History Brain aneurysm Anxiety and depression Former tobacco use Chronic hypoxic respiratory failure, on home oxygen therapy COPD (chronic obstructive pulmonary disease) Home Medications ?Medication ?Instructions ?Recorded ?Last Taken ?Type albuterol sulfate 90 mcg/actuation 1 puff inhalation Q6H PRN PRN Cough 01/05/16 07/20/24 08:00 History aerosol inhaler (Ventolin HFA) 1 puff multivitamin 1 ea PO DAILY supplement 08/25/19 07/20/24 10:00 History 1 ea mv-min-vit A-teyi-zogbpt nereida-herb 1 ea PO DAILY supplement 08/25/19 07/20/24 10:00 History #124 250 mg-12.5 mg chewable tablet 1 ea buspirone 10 mg tablet 10 mg PO BID anxiety 07/20/24 07/20/24 10:00 History 10 mg montelukast 10 mg tablet 10 mg PO QHS Pulmonary 07/20/24 07/19/24 22:00 History 10 mg furosemide 20 mg tablet (Lasix) 20 mg PO DAILY 2 weeks #14 tabs 07/22/24 Unknown Rx guaifenesin 1,200 mg tablet, 1,200 mg PO BID thins secretions 7 07/22/24 Unknown Rx extended release 12 hr days #14 tabs levofloxacin 500 mg tablet 500 mg PO DAILY 5 days #5 tabs 07/22/24 Unknown Rx aspirin 81 mg tablet 81 mg PO DAILY 02/21/25 Unknown History benzonatate 100 mg capsule 100 mg PO TID PRN PRN cough 02/21/25 Unknown History budesonide 0.5 mg/2 mL suspension 0.5 mg inhalation Q12H PRN sob 02/21/25 Unknown History for nebulization fluticasone fur. 200 mcg-umeclid 1 ea inhalation DAILY 02/21/25 Unknown History 62.5 mcg-vilant 25 mcg inhalat.powder (Trelegy Ellipta) ipratropium 0.5 mg-albuterol 3 mg 3 ml inhalation Q6H PRN PRN 02/21/25 Unknown History (2.5 mg base)/3 mL nebulization wheezing soln loratadine 10 mg capsule 10 mg PO DAILY 02/21/25 Unknown History pantoprazole 40 mg tablet,delayed 40 mg PO DAILY 02/21/25 Unknown History release trazodone 50 mg tablet 50 mg PO QHS 02/21/25 Unknown History Allergy/AdvReac Type Severity Reaction Status Date / Time codeine Allergy Unknown Verified 02/21/25 16:29 Penicillins Allergy Unknown Verified 02/21/25 16:29 Family History (Updated 02/21/25 @ 20:[address] Lynn Duke MD) Mother Diabetes Father CAD (coronary artery disease) Heart disease Hypertension Surgical History History of brain surgery Social History (Updated 02/21/25 @ 20:[address] Lynn Duke MD) household members: spouse housing: house Smoking Status: Former smoker how long ago did patient quit smoking: Quit 2014, smoked 1-2 ppd since teen until quit. alcohol intake: current alcohol intake frequency: holidays/special occasions only substance use type: does not use ROS ROS Narrative Admission Review of Systems: CONSTITUTIONAL: No weight loss, fever, chills, + weakness or fatigue. HEENT: + Congestion. Eyes: No visual loss, blurred vision, double vision or yellow sclerae. Ears, Nose, Throat: No hearing loss, sneezing, sore throat. SKIN: No rash or itching, lesions, wounds. CARDIOVASCULAR: No chest pain, chest pressure or chest discomfort, palpitations, edema, orthopnea, syncopal events. RESPIRATORY: + Dyspnea, worse with exertion, occasionally productive cough, wheezing. No hemoptysis. GASTROINTESTINAL: + Decreased appetite. No nausea, vomiting or diarrhea, abdominal pain, melena, BRBPR. GENITOURINARY: No dysuria, frequency, urgency or retention. NEUROLOGICAL: No headache, dizziness, syncope, paralysis, ataxia, numbness or tingling in the extremities, focal weakness, change in bowel or bladder control, seizure. MUSCULOSKELETAL: + muscle, back pain, joint pain or stiffness. HEMATOLOGIC: No anemia, bleeding or bruising. LYMPHATICS: No enlarged nodes. No history of splenectomy. PSYCHIATRIC: + History of anxiety and depression. ENDOCRINOLOGIC: No reports of sweating, cold or heat intolerance. No polyuria or polydipsia. ALLERGIES: + History of allergic rhinitis. Vital Signs Vital Signs Vital Signs: 02/21/25 16:27 02/21/25 17:14 02/21/25 17:14 Temperature 98.2 F 97.8 F Temperature Source Oral Oral Pulse Rate 102 H 100 Respiratory Rate 22 H 24 H Respiratory Effort Respiratory Depth Respiratory Pattern Blood Pressure 170/96 H 124/78 H Blood Pressure Mean 120 93 Pulse Ox 92 92 Oxygen Delivery Method Nasal Cannula Nasal Cannula Nasal Cannula Oxygen Flow Rate (L/min) 2 2 2 Fraction of Inspired Oxygen (FIO2) 02/21/25 17:14 02/21/25 17:15 02/21/25 17:15 Temperature Temperature Source Pulse Rate 107 H Respiratory Rate 33 H Respiratory Effort Short of Breath Labored Respiratory Depth Shallow Respiratory Pattern Tachypnea Blood Pressure Blood Pressure Mean Pulse Ox 95 Oxygen Delivery Method Nasal Cannula Nasal Cannula Oxygen Flow Rate (L/min) 2 2.5 Fraction of Inspired Oxygen (FIO2) 02/21/25 17:15 02/21/25 18:00 02/21/25 19:00 Temperature 98.5 F Temperature Source Oral Pulse Rate 97 97 Respiratory Rate 34 H 23 H 33 H Respiratory Effort Short of Breath Labored Accessory Muscle Use Pursed Lip Retracting Respiratory Depth Shallow Respiratory Pattern Tachypnea Blood Pressure 155/74 H 151/89 H Blood Pressure Mean 101 109 Pulse Ox 95 96 96 Oxygen Delivery Method Nasal Cannula Nasal Cannula Nasal Cannula Oxygen Flow Rate (L/min) 2.5 3 Fraction of Inspired Oxygen (FIO2) 02/21/25 19:30 Temperature Temperature Source Pulse Rate 93 Respiratory Rate 24 H Respiratory Effort Respiratory Depth Respiratory Pattern Tachypnea Blood Pressure Blood Pressure Mean Pulse Ox 97 Oxygen Delivery Method Oxygen Flow Rate (L/min) Fraction of Inspired Oxygen (FIO2) 30 Weight Weight: 137 lb Body Mass Index (BMI) 24.3 Physical Exam Narrative Physical Examination: General: Awake, alert, oriented x 3 and cooperative, seated upright in the ED bed, fatigued, BiPAP in place, notes feeling improved since initial ED arrival, respiratory distress resolving. Skin: Normal color, normal turgor, no icterus, no cyanosis except occasional stage ecchymoses, abrasion. HEENT: AT/NC, EOMI, PERRLA, mildly dry MM, BiPAP in place, difficult to discern carotid bruit given referred sounds, no obvious marked JVD noted. Lungs: Significantly diffusely diminished, greater bases, mildly coarse, occasional soft end expiratory wheeze, still ongoing persistent tachypnea but from description appears improved from previous, BiPAP in place, respiratory distress resolving. Heart: Mildly tachycardic with regular rhythm; no gallop, rub audible. Abdomen: Soft, NTTP, ND, distant hyperactive BS, no appreciated HSM. Extremities: No cyanosis, no clubbing, mild bilateral ankle edema. Neurological: Patient awake, alert, oriented as noted, cognitive function intact; pupils equally reactive to light and accommodation, cranial nerves grossly normal, moving all 4 extremities, no focal deficits, strength severely globally decreased secondary to acute presentation. Psychiatric: Affect appears fatigued, ill-appearing, respiratory distress lessening, BiPAP still in place, no acute evidence of depressive or anxiety feelings but does have underlying history. Results Lab / Micro Data 02/21/25 16:58 02/21/25 16:58 Labs: Laboratory Results - last 24 hr 02/21/25 16:58: WBC 13.2 H, RBC 4.68, Hgb 14.2, Hct 42.1, MCV 90.0, MCH 30.3, MCHC 33.7, RDW Std Deviation 42.0, RDW Coeff of [place] 12.8, Plt Count 341, MPV 9.3, Immature Gran % (Auto) 0.400, Neut % (Auto) 78.6 H, Lymph % (Auto) 9.8 L, [place] % (Auto) 9.0, Eos % (Auto) 1.7, Baso % (Auto) 0.5, Absolute Neuts (auto) 10.4 H, Absolute Lymphs (auto) 1.29, Nucleated RBC % 0, Sodium 140, Potassium 3.9, Chloride 101, Carbon Dioxide 26.4, Anion Gap 13, BUN 7, Creatinine 0.68 L, Estim Creat Clear Calc 96.46, Est GFR (MDRD) Non-Af 108, BUN/Creatinine Ratio 10.8, Glucose 93, Calcium 9.4, Troponin T High Sens 14 02/21/25 17:35: POC Glucose 92 02/21/25 18:55: NT pro BNP II 49 ABG Data ABG results: ABG 02/21/25 17:58 Specimen Type BETO Sample Site Not entered VBG pH 7.41 VBG pO2 34 VBG HCO3 35 H VBG Total CO2 37 H VBG O2 Sat (Calc) 65 VBG Base Excess 11 H POC Mix VBG pCO2 Pt Tmp 56.0 H O2 Delivery Device Not entered Imaging Radiology Impression Chest X-Ray 02/21/25 18:18 IMPRESSION: 1. Bibasilar consolidation and atelectasis. 2. Trace right and small left pleural effusions. Reading Location: [facility] Assessment & Plan Assessment/Plan (1) Pneumonia: PLAN: Plan The patient is a 59 y/o M w/ PMHx: Hx Brain Aneurysm s/p clipping x 2, Chronic hypoxic respiratory failure (2.5 to 3 L NC) with COPD with allergic rhinitis, Anxiety and Depression, HTN, GERD, Former tobacco use who presents to the [facility] ED on 02/21/2025 with history of progressively worsening dyspnea, wheezing, mildly productive cough over the last several days and given worsened status prompted urgent care initially however he had significant tachycardia and hypoxia prompting referral to the ED immediately. #1. Acute on Chronic Hypoxic Respiratory Failure/Acute Respiratory Distress secondary to BL Bibasilar Pneumonia and Acute on Chronic COPD Exacerbation: Will admit to the PCU as SD status on BIPAP, will maintain on oxygen with wean as tolerated to home oxygen supplementation once able to transition off the BIPAP, continue ATC duonebs, PRN albuterol, maintain on IV solumedrol, maintain on IV Rocephin and Azithromycin, HOB, IS parameters w/ pending sputum cultures and urine antigens. Bld cx x 2 and full respiratory viral panel obtained in the ED. #2. History of brain aneurysm: Patient reports status post clipping x 2 remotely, encouraged continued follow-up as previously arranged. #3. Hypertension: Continue home regimen including Lasix, PRN hydralazine. #4. Anxiety and depression: Will continue patient on BuSpar regimen, may broaden if necessary to remain on BiPAP. Will resume low-dose nightly trazodone however will hold for significant sedation. #5. Allergic rhinitis: Will continue patient home montelukast and loratadine regimen. #6. Former tobacco use: Encourage continued tobacco cessation. #7. GERD: Will continue patient on PPI. #8. DVT prophylaxis: Lovenox. #9. CODE status: Patient does not have healthcare power of employment attorney or living will in place but notes his would be his medical decision-maker if necessary. Discussed CODE status at length including difference between FULL code, DNR-CCA and DNR-CC status. Following discussions about the differences in these status, requested Full Code status. He is amenable to continue BiPAP but only if necessary and is currently requesting reevaluation by respiratory therapy for potential de-escalation. Advanced Care Planning Face to Face Time: 16 minutes. Charges/Coding Visit Charges Inpatient E&M: 69103 Init Hosp L3 Procedures Hospitalists Procedures: 42884 Advncd Care Plan 30 Min
[2025-02-21 20:03] LABS: Troponin T High Sens 2 HR 13 ng/L (<=22)
--- OUTSIDE RECORDS SUMMARY | 2025-02-21 20:24 | XMS RPT_ITS | CCD ---
Author Organization [facility] Care Team Providers Care Residential Mortgage Manager Name Role Phone Alberto Avelar MD Primary Care Provider Alberto Avelar MD Primary Care Provider Russ OSEGUERA, Helen Reynaga Unavailable Alberto Avelar MD Primary Care Provider [employer] TE[employer]ER.Shalini KUMAR Unavailable Aislinn [employer] IND[employer]AL ARTS TEACHER.Gurmeet KUMAR Unavailable Hiram, Colton Attending Unavailable Elderbrock, Alberto Primary Care Unavailable Hiram, Colton Admitting Unavailable Hiram, Colton Attending Unavailable Hiram, Colton Admitting Unavailable Elderbrock, Alberto Primary Care Unavailable Hiram, Colton Consulting Unavailable Hiram, Colton Attending Unavailable Elderbrock, Alberto Primary Care Unavailable [employer]S TEACHER.Mick KUMARley Unavailable Unavail able [employer] TEACHER.STACY Shalini Unavailable MILY TAPIA Attending Unavailable ELDERBROCK, ALBERTO D Primary Care Unavailable ELDERBROCK, ALBERTO D Attending Unavailable SELF Referring Unavailable ELDERBROCK, ALBERTO D Primary Care Unavailable MILY TAPIA Referring Unavailable ELDERBROCK, ALBERTO Kelsy Primary Care Unavailable AISLINN, GURMEET Referring Unavailable ELDERBROCK, ALBERTO D Primary Care Unavailable MILY TAPIA Attending Unavailable SELF Referring Unavailable ELDERBROCK, ALBERTO D Primary Care Unavailable AISLINN, GURMEET Attending Unavailable ELDERBROCK, ALBERTO D Primary Care Unavailable HARPSTER, NATHALIE Attending Unavailable HARPSTER, NATHALIE Referring Unavailable ELDERBROCK, ALBERTO D Primary Care Unavailable AISLINNROSSYE Attending Unavailable ELDERBROCK, ALBERTO D Primary Care Unavailable HARPSTER, NATHALIE Referring Unavailable ALBERTO AVELAR Primary Care Unavailable MILLIE SÁNCHEZ Attending Unavailable HELEN NEWMAN Referring Unavailable ALBERTO AVELAR Primary Care Unavailable HELEN NEWMAN Referring Unavailable ALBERTO AVELAR Primary Care Unavailable NATHALIE MOJICA Attending Unavailable ALETHEA MOJICAINDA Referring Unavailable ALBERTO AVELAR Primary Care Unavailable KIKO MOJICAA Referring Unavailable ALBERTO AVELAR Primary Care Unavailable Allergies Allergy Classification Reported Allergen(s) Allergy Type Date of Onset Reaction(s) Facility Acetaminophen / HYDROcodone (1 source) Acetaminophen / HYDROcodone Drug Allergy 1 Mental Status Change [facility] Opioid Agonists (1 source) Codeine Drug Allergy 6 Unknown [facility] (20 sources) Acetaminophen / HYDROcodone; Translations: [HYDROCODONE-ACET AMINOPHEN] Drug Allergy 1 Mental Status Change [facility] (20 sources) Codeine; Translations: [CODEINE] Drug Allergy 6 Unknown [facility] (20 sources) environmental [Other] Propensity to adverse reactions 1 Other: See Comments [facility] (20 sources) Mold Extract; Translations: [MOLD] Drug Allergy 4 Other: See Comments [facility] (1 source) Codeine Drug Allergy 5 [facility] Repository (1 source) Penicillins Drug allergy (disorder) 5 [facility] Rep[facility] (1 source) OTHER; Translations: [OTHER] Propensity to adverse reactions (disorder) 1 [facility] [place] [facility] Medications Current Medications Medication Drug Class(es) Dates Sig (Normalized) Sig (Original) [id number] 200 actuat albuterol 0.09 mg/actuat metered dose inhaler (20 sources) beta2-Adrenergic Agonist Start: 11-20-2024 take 2 puff(s) by inhalation every four hours as needed for wheezing albuterol HFA (PROVENTIL HFA, VENTOLIN HFA) 90 mcg/actuation inhaler Inhale 2 puffs as instructed every 4 hours as needed. NEEDED FOR SHORTNESS OF BREATH AND WHEEZING 18 g 5 11/20/2024 Active Start: 08-12-2020 take 2 puff(s) by in halation every four hours as needed for wheezing albuterol HFA (PROVENTIL HFA, VENTOLIN HFA) 90 mcg/actuation inhaler Inhale 2 Puffs as instructed every 4 hours as needed. NEEDED FOR SHORTNESS OF BREATH AND WHEEZING 18 g 5 08/12/2020 Active Comment on above: Inhale 2 Puffs as in structed every 4 hours as needed. NEEDED FOR SHORTNESS OF BREATH AND WHEEZING albuterol 0.833 mg/ml / ipratropium bromide 0.167 mg/ml inhalation solution (20 sources) Anticholinergic, beta2-Adrenergic Agonist Start: 025 take 3 mL by inhalation every six hours as needed for wheezing ipratropium-albutero l (DUONEB) 0.5 mg-3 mg(2.5 mg base)/3 mL nebu Indications: Stage 4 very severe COPD by GOLD classification (HCC) Inhale 3 mL as instructed every 6 hours as needed for wheezing/shortness of breath. 1080 mL 5 07/30/2024 Active ascorbic acid 250 mg oral tablet (20 sources) Vitamin C take 1 tablet by mouth once daily ascorbic acid, vitamin C, (VITAMIN C) 250 mg tablet Take 250 mg by mouth once daily. Active Comment on above: Take 250 mg by mouth once daily. aspirin 81 mg delayed release oral tablet (20 sources) Platelet Aggregation Inhibitor, Nonsteroidal Anti-inflammatory Drug Start: 017 take 1 tablet by mouth once daily aspirin, enteric coated (ASPIR-81) 81 mg EC tablet Take 1 tablet by mouth once daily. 0 07/05/2016 Active Comment on above: Take 1 tablet by kierra once daily. benzonatate 100 mg oral capsule (20 sources) Non-narcotic Antitussive Start: 025 take 1 capsule by mouth every eight hours as needed benzonatate (TESSALON PERLE) 100 mg capsule Take 1 capsule by mouth three times a day as needed for cough. 60 capsule 2 07/30/2024 Active budesonide 0.25 mg/ml inhalation suspension (18 sources) Corticosteroid Start: 025 take 0.5 mg by inhalation every twelve hours as needed budesonide (PULMICORT) 0.5 mg/2 mL nebulizer solution Use 2 mL via nebulizer two times a day as needed. INHALE 2 ML BY NEBULIZER OVER 5-15 MINUTES EVERY 12 HOURS. 120 mL 5 10/18/2024 Active busPIRone hydrochloride 10 mg oral tablet (20 sources) Start: 025 take 1 tablet by mouth twice daily busPIRone (BUSPAR) 10 mg tablet Indications: Anxiousness Take 1 tablet by mouth two times a day. 11/01/2024 Active Start: 06-17-2024 End: 06-18-2025 take 1 tablet by mouth three times daily busPIRone (BUSPAR) 10 mg tablet Indications: Anxiousness Take 1 tablet by mouth three times a day. 270 tablet 3 06/18/2024 11/01/2024 Discontinued (Adjust Sig - Block E-Cancel) Start: 04-10-2024 End: 05-10-2024 take 1 tablet by mouth three times daily busPIRone (BUSPAR) 10 mg tablet Take 1 tablet by mouth three times a day. 90 tablet 04/10/2024 05/10/2024 Active Start: 04-26-2021 End: 04-10-2024 take 1 tablet by mouth every twelve hours busPIRone (BUSPAR) 10 mg tablet take 1 tablet by mouth twice a day 180 tablet 3 04/18/2023 04/10/2024 Discontinued Comment on above: Take 1 tablet by kierra th twice daily. TAKE 1 TABLET BY KIERRA TH TWICE A DAY doxycycline hyclate 100 mg oral tablet (2 sources) Tetracycline-cla ss Drug Start: 06-21-2024 End: 06-28-2024 take 1 tablet by mouth twice daily doxycycline (VIBRA-TABS) 100 mg tablet Take 1 tablet by mouth two times a day for 7 days. 14 tablet 06/21/2024 06/28/2024 Active Start: 05-21-2022 End: 05-28-2022 take 1 tablet by mouth twice daily doxycycline monohydrate 100 mg tablet Indications: COPD with exacerbation (HCC) Take 1 tablet by mouth twice daily for 7 days. 14 tablet 0 05/21/2022 05/28/2022 Active Comment on above: Take 1 tablet by kierra th twice daily for 7 days. ergocalciferol, vitamin D2, (VITAMIN D2 ORAL) (20 sources) ergocalciferol, vitamin D2, (VITAMIN D2 ORAL) Take by mouth. Active ergocalciferol, vitamin D2, (VITAMIN D2 ORAL) Take by mouth. 0 Active Comment on above: Take by mouth. fluticasone-umeclid in-vilanter (TRELEGY ELLIPTA) 200-62.5-25 mcg inhalation powder (20 sources) Start: End: take 1 puff(s) by inhalation once daily yfhsswmggku-strpdvbwb-e ilanter (TRELEGY ELLIPTA) 200-62.5-25 mcg inhalation powder Indications: Stage 4 very severe COPD by GOLD classification (HCC) , Asthma-COPD overlap syndrome (HCC) Inhale 1 puff as instructed once daily. 180 each 3 01/21/2025 01/21/2026 Active Start: 01-29-2024 End: 01-21-2025 take 1 puff(s) by inhalation once daily frvspraeyjy-lgicwplts-bmwtfbxi (TRELEGY ELLIPTA) 200-62.5-25 mcg inhalation powder Indications: Stage 4 very severe COPD by GOLD classification (HCC) , Asthma-COPD overlap syndrome (HCC) Inhale 1 Puff as instructed once daily. 180 Each 3 01/29/2024 01/21/2025 Discontinued Start: 01-29-2024 End: 01-28-2025 take 1 puff(s) by inhalation once daily ebgsihyszct-llmobuprz-bochhxfu (TRELEGY ELLIPTA) 200-62.5-25 mcg inhalation powder Indications: Stage 4 very severe COPD by GOLD classification (HCC) , Asthma-COPD overlap syndrome (HCC) Inhale 1 Puff as instructed once daily. 180 Each 3 01/29/2024 01/28/2025 Active Start: 01-13-2023 End: 01-13-2024 take 1 puff(s) by inhalation once daily ceeubusgirb-ezaqcsxsd-jvppgtbo (TRELEGY ELLIPTA) 200-62.5-25 mcg inhalation powder Indications: Stage 4 very severe COPD by GOLD classification (HCC) , Asthma-COPD overlap syndrome Inhale 1 Puff as instructed once daily. 180 Each 3 01/13/2023 01/13/2024 Active Start: 01-13-2023 End: 01-13-2024 take 1 puff(s) by inhalation once daily nqhitcfdmrp-upsjfybdb-njwoynwy (TRELEGY ELLIPTA) 200-62.5-25 mcg inhalation powder Indications: Stage 4 very severe COPD by GOLD classification (HCC) , Asthma-COPD overlap syndrome (HCC) Inhale 1 Puff as instructed once daily. 180 Each 3 01/13/2023 01/13/2024 Active Start: 11-14-2022 End: 01-13-2023 take 1 puff(s) by inhalation once daily zgifguutqmh-ynxijtubf-cgvpehgf (TRELEGY ELLIPTA) 200-62.5-25 mcg inhalation powder Indications: Stage 4 very severe COPD by GOLD classification ([facility]) , Asthma-COPD overlap syndrome (HCC) Inhale 1 Puff as instructed once daily. 1 Each 11/14/2022 01/13/2023 Discontinued Start: 11-14-2022 take 1 puff(s) by inhalation once daily vobmncutqqt-yskanjnvp-cncdkbix (TRELEGY ELLIPTA) 200-62.5-25 mcg inhalation powder Indications: Stage 4 very severe COPD by GOLD classification ([facility]) , Asthma-COPD overlap syndrome (HCC) Inhale 1 Puff as instructed once daily. 1 Each 11/14/2022 Active Comment on above: Inhale 1 Puff as ins tructed once daily. furosemide 20 mg oral tablet (20 sources) Loop Diuretic Start: 07-22-2024 furosemide (LASIX) 20 mg tablet 20 mg once daily. 07/22/2024 Active 12 hr guaiFENesin 1200 mg extended release oral tablet (20 sources) Start: 07-30-2024 End: 07-30-2024 take 1 tablet by mouth twice daily MUCUS RELIEF ER 1,200 mg Ta12 Take 1 tablet by mouth two times a day. 60 tablet 1 07/30/2024 Active Start: 05-03-2021 End: 05-21-2022 take 2 tablets by mouth twice daily MUCUS RELIEF ER 600 mg 12 hr tablet TAKE 2 TABLETS BY MOUTH TWICE A DAY 120 tablet 3 05/03/2021 05/21/2022 Discontinued Comment on above: TAKE 2 TABLETS [address] [facility] TWICE A DAY levoFLOXacin 500 mg oral tablet (11 sources) Quinolone Antimicrobial Start: 11-19-19 take 1 tablet by mouth once daily levoFLOXacin (LEVAQUIN) 500 mg tablet Indications: Stage 4 very severe COPD by GOLD classification ([facility]) Take 1 tablet by mouth once daily. 5 tablet 11/18/2024 Active loratadine 10 mg oral capsule (20 sources) take 1 capsule by mouth once daily loratadine 10 mg cap Take 10 mg by mouth once daily. Active Comment on above: Take 10 mg by mouth once daily. montelukast 10 mg oral tablet (20 sources) Leukotriene Receptor Antagonist Start: 04-26-20 End: 05-15-20 24 take 1 tablet by mouth once daily at bedtime montelukast (SINGULAIR) 10 mg tablet Indications: Post-nasal drip , Asthma-COPD overlap syndrome (HCC) Take 1 tablet by mouth daily at bedtime. 90 tablet 3 05/15/2024 Active Comment on above: Take 1 tablet by kierra th daily at bedtime. TAKE 1 TABLET BY KIERRA TH EVERYDAY AT BEDTIME MULTIVITAMIN ORAL (20 sources) MULTIVITAMIN ORA L Take by mouth. States contains vitamin b,c,d Active MULTIVITAMIN ORA L Take by mouth. States contains vitamin b,c,d 0 Active Comment on above: Take by mouth. State s contains vitamin b,c,d Nebulizer Accessories kit (20 sources) Start: 5 Nebulizer Accessories kit Indications: Stage 4 very severe COPD by GOLD classification ([facility]) 1 Kit two times a day as needed (SOB, wheezing, cough). 1 Kit 11 07/30/2024 Active pantoprazole 40 mg delayed release oral tablet (20 sources) Proton Pump Inhibitor Start: 1 End: 5 take 1 tablet by mouth once pantoprazole DR (PROTONIX) 40 mg tablet Take 1 tablet by mouth every afternoon. 90 tablet 3 11/27/2024 Active Comment on above: TAKE 1 TABLET BY KIERRA TH EVERY DAY Take 1 tablet by kierra th once daily. predniSONE 10 mg oral tablet (7 sources) Start: 5 End: 5 take 5 tablets by mouth once daily, then take 4 tablets by mouth once daily, then take 3 tablets by mouth once daily, then take 2 tablets by mouth once daily, then take 1 tablet by mouth once daily predniSONE (DELTASONE) 10 mg tablet Indications: Stage 4 very severe COPD by GOLD classification ([facility]) Take 5 tablets by mouth once daily for 3 days, THEN 4 tablets once daily for 3 days, THEN 3 tablets once daily for 3 days, THEN 2 tablets once daily for 3 days, THEN 1 tablet once daily for 3 days. 45 tablet 11/18/2024 12/03/2024 Active Start: 06-21-2024 End: 07-03-2024 take 2 tablets by mouth once daily, then take 1.5 tablets by mouth once daily, then take 1 tablet by mouth once daily, then take 0.5 tablet by mouth once daily predniSONE (DELTASONE) 20 mg tablet Take 2 tablets by mouth once daily for 3 days, THEN 1.5 tablets once daily for 3 days, THEN 1 tablet once daily for 3 days, THEN 0.5 tablets once daily for 3 days. 15 tablet 06/21/2024 07/03/2024 Active Start: 05-21-2022 End: 05-30-2022 predniSONE (DELTASONE) 10 mg tablet Indications: COPD with exacerbation (HCC) Take 4 tabs daily for 3 days, then 2 tabs daily for 3 days, then 1 tab daily for 3 days with food. 21 tablet 0 05/21/2022 05/30/2022 Active Comment on above: Take 4 tabs daily fo r 3 days, then 2 tabs daily for 3 days, then 1 tab daily for 3 days with food. traZODone hydrochloride 50 mg oral tablet (20 sources) Serotonin Reuptake Inhibitor Start: End: take 1 tablet by mouth once daily at bedtime traZODone (DESYREL) 50 mg tablet Indications: Sleeping difficulty Take 1 tablet by mouth daily at bedtime. 90 tablet 1 01/15/2025 Active vitamin e 90 mg oral capsule (20 sources) Vitamin E, dl, acetate, (VITAMIN E) 134 mg (200 unit) Capsule Take by mouth once daily. Active Comment on above: Take by mouth once d aily. Completed/Discontinued Medications Medication Drug Class(es) Dates Sig (Normalized) Sig (Original) CPAP (20 sources) Start: 12-30-2021 End: 11-14-2022 CPAP Change Auto bilevel settings to EPAP min 3 cmH2O, IPAP max 15 cmH2O, with pressure support 4-6 cmH2O. Please increase ramp to 20 minutes. 1 Each 9999 12/30/2021 11/14/2022 Discontinued (Discontinued by Patient) Start: 12-30-2021 CPAP Change Au to bilevel settings to EPAP min 3 cmH2O, IPAP max 15 cmH2O, with pressure support 4-6 cmH2O. Please increase ramp to 20 minutes. 1 Each 9999 12/30/2021 Active Comment on above: Change Auto bilevel settings to EPAP min 3 cmH2O, IPAP max 15 cmH2O, with pressure support 4-6 cmH2O. Please increase ramp to 20 minutes. CPAP/BIPAP/OTHER (20 sources) Start: 02-03-2022 End: 11-14-2022 CPAP/BIPAP/OTHER Type .CPAPSettings into a note to see current settings/supplies/DME information. 1 Each 0 02/03/2022 11/14/2022 Discontinued (Discontinued by Patient) Start: 02-03-2022 End: 06-20-2049 CPAP/BIPAP/OTHER Type .CPAPS ettings into a note to see current settings/supplies/DME information. 1 Each 0 02/03/2022 06/20/2049 Active Comment on above: Type .CPAPSettings i nto a note to see current settings/supplies/DME information. 30 actuat fluticasone furoate 0.1 mg/actuat / umeclidinium 0.0625 mg/actuat / vilanterol 0.025 mg/actuat dry powder inhaler (20 sources) Anticholinergic, Corticosteroid, beta2-Adrenergic Agonist Start: 2020 End: 2022 take 1 puff(s) by inhalation once daily OFELIA ELLIPTA 100-62.5-25 mcg inhalation powder Indications: Pulmonary emphysema, unspecified emphysema type (HCC) INHALE 1 PUFF INSTRUCTED ONCE DAILY. 180 Each 3 03/14/2022 11/14/2022 Discontinued Comment on above: INHALE 1 PUFF INS TRUCTED ONCE DAILY. hydrOXYzine hydrochloride 25 mg oral tablet (7 sources) Antihistamine Start: 2018 End: 2021 take 1-2 tablets by mouth at bedtime as needed, then take 1 tablet by mouth every six hours as needed hydrOXYzine HCl (ATARAX) 25 mg tablet Indications: Pruritic dermatitis TAKE 1 TO 2 TABLETS BY MOUTH AT BEDTIME AND 1 EVERY 6 HOURS NEEDED FOR ITCHING 90 tablet 2 09/04/2018 02/03/2022 Discontinued Comment on above: TAKE 1 TO 2 TABLETS BY MOUTH AT BEDTIME AND 1 EVERY 6 HOURS NEEDED FOR ITCHING melatonin 10 mg extended release oral tablet (20 sources) End: 2024 melatonin 10 mg chew Take by mouth. 11/01/2024 Discontinued (Course of therapy completed) melatonin 1 mg t ablet Take by mouth. 0 Active Comment on above: Take by mouth. Problems Active Problems Problem Classification Problem Date Documented Da te Episodic/Chronic Acute cerebrovascular disease (20 sources) Hemorrhage into subarachnoid space of neuraxis; Translations: [Nontraumatic subarachnoid hemorrhage, unspecified] Onset: 01-05-2016 06-28-2021 Chronic Allergic reactions (2 sources) H/O: non-drug allergy; Translations: [Allergy status to unspecified drugs, medicaments and biological substances status] Episodic Anxiety disorders (4 sources) Anxiety; Translations: [Anxiety disorder, unspecified] Onset: 11-01-2024 06-18-2024 Chronic Asthma (20 sources) Asthma; Translations: [Unspecified asthma, uncomplicated] Onset: 11-11-2010 06-28-2021 Chronic Chronic obstructive pulmonary disease and bronchiectasis (20 sources) Pulmonary emphysema; Translations: [Emphysema, unspecified] Onset: 07-05-2016 07-05-2016 Chronic Diabetes mellitus without complication (1 source) Increased glucose level; Translations: [Other abnormal glucose] 08-01-2024 Episodic Disorders of lipid metabolism (20 sources) Hyperlipidemia; Translations: [Hyperlipidemia, unspecified] Onset: 11-11-2010 06-28-2021 Chronic Nutritional deficiencies (20 sources) Undernutrition; Translations: [Mild protein-calorie malnutrition] Onset: 01-12-2016 01-12-2016 Chronic Other aftercare (2 sources) Post-discharge follow-up; Translations: [Encounter for follow-up examination after completed treatment for conditions other than malignant neoplasm] 07-30-2024 Episodic Other and ill-defined cerebrovascular disease (20 sources) Intracranial aneurysm; Translations: [Cerebral aneurysm, nonruptured] Onset: 01-07-2016 06-28-2021 Chronic Other lower respiratory disease (9 sources) Multiple nodules of lung; Translations: [Other nonspecific abnormal finding of lung field] 05-01-2023 Episodic Other upper respiratory disease (20 sources) Allergic rhinitis; Translations: [Other allergic rhinitis] Onset: 04-10-2018 04-10-2018 Chronic Other upper respiratory disease (20 sources) Allergic rhinitis due to pollen; Translations: [Allergic rhinitis due to pollen] Onset: 04-10-2018 04-10-2018 Chronic Other upper respiratory infections (1 source) Chronic sinusitis; Translations: [Chronic sinusitis, unspecified] 08-29-2023 Chronic Other upper respiratory infections (5 sources) Posterior rhinorrhea; Translations: [Postnasal drip] Episodic Residual codes; unclassified (20 sources) Obstructive sleep apnea syndrome; Translations: [Obstructive sleep apnea (adult) (pediatric)] Onset: 12-30-2021 Chronic Residual codes; unclassified (3 sources) Difficulty sleeping ; Translations: [Sleep disorder, unspecified] 08-01-2024 Episodic Residual codes; unclassified (1 source) Sleep disorder, unspecified; Translations: [Sleeping difficulty] Onset: 11-01-2024 Episodic Respiratory failure; insufficiency; arrest (adult) (10 sources) Dependence on nocturnal oxygen therapy; Translations: [Dependence on supplemental oxygen] Onset: 07-30-2024 Chronic Screening and history of mental health and substance abuse codes (9 sources) Ex-cigarette smoker; Translations: [Personal history of nicotine dependence] Onset: 11-18-2024 Episodic Past or Other Problems Problem Classification Problem Date Documented Date Episodic/Chronic Headache; including migraine (20 sources) Acute headache; Translations: [Acute headache] Onset: 01-05-2016 06-28-2021 Episodic Mycoses (20 sources) Tinea corporis; Translations: [Tinea corporis] Onset: 01-06-2016 06-28-2021 Episodic Other aftercare (1 source) Encounter for follow-up examination after completed treatment for conditions other than malignant neoplasm; Translations: [Hospital discharge follow-up] Onset: 07-30-2024 Episodic Other injuries and conditions due to external causes (20 sources) Injury of elbow; Translations: [Unspecified injury of right elbow, initial encounter] Onset: 12-23-2013 01-05-2016 Episodic Other injuries and conditions due to external causes (20 sources) Injury of right elbow region; Translations: [Unspecified injury of right elbow, initial encounter] Onset: 12-23-2013 01-05-2016 Episodic Other lower respiratory disease (1 source) Other nonspecific abnormal finding of lung field; Translations: [Lung nodules] Onset: 05-20-2024 Episodic Other screening for suspected conditions (not mental disorders or infectious disease) (20 sources) Patient encounter status; Translations: [Encounter for screening for malignant neoplasm of colon] Onset: 04-03-2019 04-03-2019 Episodic Pneumonia (except that caused by tuberculosis or sexually transmitted disease) (6 sources) Bilateral pneumonia; Translations: [Pneumonia, unspecified organism] Onset: 07-22-2024 07-30-2024 Episodic Residual codes; unclassified (20 sources) At risk of epileptic fits; Translations: [Other specified personal risk factors, not elsewhere classified] Onset: 01-05-2016 06-28-2021 Episodic Residual codes; unclassified (20 sources) Postoperative state; Translations: [Other specified postprocedural states] Onset: 01-07-2016 01-08-2016 Episodic Results Test Name Value Interpretation Reference Range Facility [facility] 11-18-2024 [facility] Office Visit (PULMWS ) SRIKANTHKARLI L ([id number]) 1965 M Date Time Provider Department 11/18/24 11:00 AM NATHALIE MOJICA PULMWS During your visit today, we recorded the following information about you: Pulse Respiration 61/minute 19/minute Nathalie Mojica APRN.MALTER OPERATOR 11/18/2024 1:24 PM Signed [facility] INCIDENTAL LUNG NODULE PROGRAM Impression / Recommendations 1. Lung nodules (Primary) JANNET nodule of concern is resolved. All other nodules are small and stable. There are new inflammatory opacities in RML, RLL, and LLL. 2. Nicotine Dependence, Former: Continue to abstain from smoking cigarettes. 3. Stage 4 very severe COPD by GOLD classification (HCC) Continue to follow up with icu staff nurse. On supplemental oxygen, Trelegy and singulair daily. Take prednisone and levaquin starting today. Reviewed instructions for nebulizers and albuterol use. Recommended Duoneb every 6 hours and budesonide nebulizer twice daily for the next few days then can transition to as needed. He may use albuterol inhaler every 4 hours in coordination with duoneb doses. Follow up with icu staff nurse if any new or continued symptoms. If worsening symptoms he should go to the emergency room. -------- Requesting Provider: Nathalie Mojica Reason for the Consult Karli Duke presents today for consultation / opinion regarding lung nodule(s). My impression and final recommendations will be communicated back to the requesting physician by way of shared medical record or letter via [place] mail. History of Present Illness Karli Duke is a 59 year old male with a pertinent past medical history significant for History of tobacco abuse: (>30 pack-years, 9 years since quit) who is being seen as a new consultation for evaluation of a lung nodule(s). Karli Duke had a CT Chest on 05/20/2024 for the indication of lung nodules. >5 nodules were detected Incidentally. The nodule of greatest concern is a Solid 5 mm nodule with a Irregular border in the Left upper lobe/lingula of the lung, that increased in size from 3 to 5 mm. Stable 15 mm RUL non-solid nodule is stable. Prior imaging: (Yes What type of prior imaging? CT Scan Was the nodule of concern seen on prior imaging? Yes Has the nodule of concern remained stable? Increased in Size) per radiology report 05/20/2024 Radiology report indicated this JANNET nodule increased in size from 3-5 mm from 04/24/2023. No nodule was noted in this area on 04/24/2023 images. Pt had interval [facility]A Chest at [facility] 07/20/2024 and the JANNET 5 mm nodule was decreased in size. There were new inflammatory/infectious opacities noted. Treated for pneumonia with levaquin, prednisone, lasix and mucinex. Pt is on supplemental oxygen. He called nurse help line last night for shortness of breath and they advised patient to go to ER. He did not go. He came today for his CT scan and follow up visit. He has been having cough and congestion for the last few weeks. His had an illness as well. He denies fever, but has colored sputum green with black in it. The black stuff tastes like tar and powdered paint. He is having increased wheezing and shortness of breath. He has been taking 1 of his nebulizers daily. Not sure which one and using in puff of albuterol. We discussed the dose is 2 puffs. He has not been using this that often even though he has been having increased symptoms. Last 12 Encounter Wt Readings: Date: Wt: 08/01/2024 68.3 kg (150 lb 9.2 oz) 02/29/2024 69.4 kg (153 lb) 02/29/2024 69.4 kg (153 lb) 08/29/2023 69.9 kg (154 lb) 08/29/2023 69.9 kg (154 lb) 06/14/2023 73 kg (161 lb) 04/11/2023 73.5 kg (162 lb) 03/14/2023 73.9 kg (163 lb) 12/12/2022 75.3 kg (166 lb) 12/12/2022 75.3 kg (166 lb) 12/01/2022 75.2 kg (165 lb 11.2 oz) 11/14/2022 74.8 kg (165 lb)] Modified Medical Research [place] Dyspnea Scale (MMRC) I am too breathless to leave the house or I am breathless when dressing 4 Problem List, History, Medications and allergies have been reviewed from the [facility] electronic medical record and any appropriate up-dates have been made. Physical Exam BP (P) 112/68 Pulse 61 Resp 19 SpO2 97% General Appearance: Thin and Wheelchair. Neck: Supple, no adenopathy; thyroid symmetric, normal size Lungs: Positive findings: diminished lung sounds . Heart: RRR without murmur, gallop, or rubs. No ectopy. Neurologic: Oriented X 3. Diagnostic Data I have personally visualized, reviewed and analyzed the findings on pulmonary function testing and radiographs. New JANNET nodule noted on 05/20/2024 described by radiology as increasing in size is now resolved. Stable JANNET nodule New patchy opacities in RML RLL opacities vs atelectasis LLL inflammatory opa (more content not included)... Normal [facility] CT CHEST WO IVCONon 11-19-19 CT CHEST WO IVCON * * *Final Report* * * DATE OF EXAM: Nov 18 2024 11:10AM [facility] 05[facility] - CT CHEST WO IVCON / PROCEDURE REASON: Lung nodules * * * * Physician Interpretation * * * * EXAMINATION: CHEST CT WITHOUT CONTRAST CLINICAL HISTORY: Lung nodules Technique: Spiral CT acquisition of the chest from the thoracic inlet to the upper abdomen without contrast. MQ: [id number] CT Radiation dose: Integrated Dose-length product (DLP) for this visit = 1499 mGy*cm CT Dose Reduction Employed: Automated exposure control(AEC) and iterative recon Comparison: 05/20/2024, 04/24/2023 RESULT: Limitations: None. Lines, tubes, and devices: None. Lung parenchyma and airways: There is severe emphysema, with mild, diffuse bronchiectasis as well as bronchial wall thickening. Interval development of nodular and tree-in-bud type opacities within the right middle lobe, when compared to the prior examination. Similar findings have developed within the lower lobes, bilaterally. Although findings are likely related to multifocal infectious or inflammatory disease, continued interval surveillance recommended. Secretions are seen within the trachea and mainstem bronchi. There is volume loss within the right middle lobe. Again seen are regions of parenchymal scarring within both lungs. Pleural space: There is no pleural effusion. Lower neck, lymph nodes, and mediastinum: There are no pathologically enlarged axillary, mediastinal, or hilar lymph nodes. Heart, pericardium, and thoracic vessels: Atherosclerotic calcifications are present within the thoracic aorta and coronary arteries. The heart is normal in size. There is no significant pericardial effusion. Bones and soft tissues: There is no destructive bony lesion. There is bilateral shoulder DJD. Loose body about the right shoulder. Mild scoliosis of the thoracic spine. Upper abdomen: Nonspecific wall thickening of the stomach likely relates to underdistention. Mild, nonspecific thickening of adrenal glands, bilaterally, left greater than right. Calcification is seen centrally the right kidney, which likely relates to a vascular calcification. The liver has a somewhat nodular contour. Prominent, less than 1 cm upper abdominal lymph nodes are likely reactive. IMPRESSION: Severe emphysema, with mild, diffuse bronchiectasis. There is associated bronchial wall thickening. Interval development of a nodular and tree-in-bud type opacities within the right middle lobe, when compared the prior examination. Similar findings have developed in the lower lobes, bilaterally. Although findings likely relate to multifocal infectious or inflammatory disease, continued interval surveillance recommended. Secretions within the trachea and mainstem bronchi. Parenchymal scarring is again seen within both lungs. No sho lymphadenopathy is seen within the chest. Laboratory Helper: PSCB Transcribe Date/Time: Nov 19 2024 6:22A Dictated by : KAELA HAND MD This examination was interpreted and the report reviewed and electronically signed by: KAELA HAND MD on Nov 19 2024 6:28AM EST [id number] [facility] Telephone (JANELLE) KARLI DUKE ([id number]) 1965 M Date Time Provider Department 10/28/24 DIAN VILLARREAL During your visit today, we recorded the following information about you: Dian Villarreal, Maintenance Service Dispatcher 10/28/2024 2:44 PM Signed Called patient regarding pulmonary rehab program. Patient answered and stated that they will give me a call back when they are interested. Patient has my phone number to call me back. [phone] Allergies As of Date: 10/28/2024 Noted Allergy Reaction CODEINE 01/05/2016 16 - Unknown MOLD 06/18/2024 14 - Other: See Comments VICODIN (HYDROCODONE-ACETAMINOPHE* 1 - Mental Status Change Date Reviewed: 10/18/2024 Reviewed by: Mily Tapia APRN.MALTER OPERATOR - Fully Assessed Reason for Visit: Appointment [186] Cmt: Pulmonary Rehab Eval Prescriptions as of 10/28/2024 - budesonide (PULMICORT) 0.5 mg/2 mL nebulizer solution Use 2 mL via nebulizer two times a day as needed. INHALE 2 ML BY NEBULIZER OVER 5-15 MINUTES EVERY 12 HOURS. - traZODone (DESYREL) 50 mg tablet Take 1 tablet by mouth daily at bedtime. - furosemide (LASIX) 20 mg tablet 20 mg once daily. - Nebulizer Accessories kit 1 Kit two times a day as needed (SOB, wheezing, cough). - ipratropium-albuterol (DUONEB) 0.5 mg-3 mg(2.5 mg base)/3 mL nebu Inhale 3 mL as instructed every 6 hours as needed for wheezing/shortness of breath. - MUCUS RELIEF ER 1,200 mg Ta12 Take 1 tablet by mouth two times a day. - benzonatate (TESSALON PERLE) 100 mg capsule Take 1 capsule by mouth three times a day as needed for cough. - busPIRone (BUSPAR) 10 mg tablet Take 1 tablet by mouth three times a day. - montelukast (SINGULAIR) 10 mg tablet Take 1 tablet by mouth daily at bedtime. - hajnqopinlr-ezbqbhklz-gejgfv er (TRELEGY ELLIPTA) 200-62.5-25 mcg inhalation powder Inhale 1 Puff as instructed once daily. - pantoprazole DR (PROTONIX) 40 mg tablet take 1 tablet by mouth every day - ascorbic acid, vitamin C, (VITAMIN C) 250 mg tablet Take 250 mg by mouth once daily. - ergocalciferol, vitamin D2, (VITAMIN D2 ORAL) Take by mouth. - Vitamin E, dl, acetate, (VITAMIN E) 134 mg (200 unit) Capsule Take by mouth once daily. - melatonin 10 mg chew Take by mouth. - loratadine 10 mg cap Take 10 mg by mouth once daily. - MULTIVITAMIN ORAL Take by mouth. States contains vitamin b,c,d - albuterol HFA (PROVENTIL HFA, VENTOLIN HFA) 90 mcg/actuation inhaler Inhale 2 Puffs as instructed every 4 hours as needed. NEEDED FOR SHORTNESS OF BREATH AND WHEEZING - aspirin, enteric coated (ASPIR-81) 81 mg EC tablet Take 1 tablet by mouth once daily. Meds Comments as of 04/07/2016: Naproxen Problem List As Of Date 10/28/2024 Noted Resolved Other and unspecified hyperlipidemia [E78.5] 11/11/2010 Asthma [J45.909] 11/11/2010 Injury of right elbow [S59.901A] 12/23/2013 SAH (subarachnoid hemorrhage) (HCC) [I60.9] 01/05/2016 At risk for seizures [Z91.89] 01/05/2016 Acute headache [R51.9] 01/05/2016 Bleeding in brain due to brain aneurysm (HCC) [*01/05/2016 Tinea corporis [B35.4] 01/06/2016 Postoperative state [Z98.890] 01/07/2016 IVH (intraventricular hemorrhage) (HCC) [I61.5] 01/07/2016 Brain aneurysm [I67.1] 01/07/2016 Malnutrition of mild degree (HCC) [E44.1] 01/12/2016 Pulmonary emphysema (HCC) [J43.9] 07/05/2016 Allergic rhinitis due to fungal spores [J30.89] 04/10/2018 Seasonal allergic rhinitis due to pollen [J30.1]04/10/2018 Screening for colon cancer [Z12.11] 04/03/2019 GHASSAN on CPAP [G47.33] 12/30/2021 Encounter Status:Closed by DIAN VILLARREAL on 10/28/24 [facility] 10-21-2024 [facility] Telephone (JANELLE) KARLI DUKE ([id number]) 1965 M Date Time Provider Department 10/21/24 DIAN VILLARREAL During your visit today, we recorded the following information about you: Dian Villarreal, Maintenance Service Dispatcher 10/21/2024 1:18 PM Signed Called patient regarding pulmonary rehab program. Patient did not answer, so I left a message on voicemail with instructions on how to contact me. [phone] Allergies As of Date: 10/21/2024 Noted Allergy Reaction CODEINE 01/05/2016 16 - Unknown MOLD 06/18/2024 14 - Other: See Comments VICODIN (HYDROCODONE-ACETAMINOPHE* 1 - Mental Status Change Date Reviewed: 10/18/2024 Reviewed by: Mily Tapia APRN.MALTER OPERATOR - Fully Assessed Reason for Visit: Appointment [186] Cmt: Pulmonary Rehab Eval Prescriptions as of 10/21/2024 - budesonide (PULMICORT) 0.5 mg/2 mL nebulizer solution Use 2 mL via nebulizer two times a day as needed. INHALE 2 ML BY NEBULIZER OVER 5-15 MINUTES EVERY 12 HOURS. - traZODone (DESYREL) 50 mg tablet Take 1 tablet by mouth daily at bedtime. - furosemide (LASIX) 20 mg tablet 20 mg once daily. - Nebulizer Accessories kit 1 Kit two times a day as needed (SOB, wheezing, cough). - ipratropium-albuterol (DUONEB) 0.5 mg-3 mg(2.5 mg base)/3 mL nebu Inhale 3 mL as instructed every 6 hours as needed for wheezing/shortness of breath. - MUCUS RELIEF ER 1,200 mg Ta12 Take 1 tablet by mouth two times a day. - benzonatate (TESSALON PERLE) 100 mg capsule Take 1 capsule by mouth three times a day as needed for cough. - busPIRone (BUSPAR) 10 mg tablet Take 1 tablet by mouth three times a day. - montelukast (SINGULAIR) 10 mg tablet Take 1 tablet by mouth daily at bedtime. - bigplulcwdx-dglccumms-hwjovq er (TRELEGY ELLIPTA) 200-62.5-25 mcg inhalation powder Inhale 1 Puff as instructed once daily. - pantoprazole DR (PROTONIX) 40 mg tablet take 1 tablet by mouth every day - ascorbic acid, vitamin C, (VITAMIN C) 250 mg tablet Take 250 mg by mouth once daily. - ergocalciferol, vitamin D2, (VITAMIN D2 ORAL) Take by mouth. - Vitamin E, dl, acetate, (VITAMIN E) 134 mg (200 unit) Capsule Take by mouth once daily. - melatonin 10 mg chew Take by mouth. - loratadine 10 mg cap Take 10 mg by mouth once daily. - MULTIVITAMIN ORAL Take by mouth. States contains vitamin b,c,d - albuterol HFA (PROVENTIL HFA, VENTOLIN HFA) 90 mcg/actuation inhaler Inhale 2 Puffs as instructed every 4 hours as needed. NEEDED FOR SHORTNESS OF BREATH AND WHEEZING - aspirin, enteric coated (ASPIR-81) 81 mg EC tablet Take 1 tablet by mouth once daily. Meds Comments as of 04/07/2016: Naproxen Problem List As Of Date 10/21/2024 Noted Resolved Other and unspecified hyperlipidemia [E78.5] 11/11/2010 Asthma [J45.909] 11/11/2010 Injury of right elbow [S59.901A] 12/23/2013 SAH (subarachnoid hemorrhage) ([facility]) [I60.9] 01/05/2016 At risk for seizures [Z91.89] 01/05/2016 Acute headache [R51.9] 01/05/2016 Bleeding in brain due to brain aneurysm (HCC) [*01/05/2016 Tinea corporis [B35.4] 01/06/2016 Postoperative state [Z98.890] 01/07/2016 IVH (intraventricular hemorrhage) ([facility]) [I61.5] 01/07/2016 Brain aneurysm [I67.1] 01/07/2016 Malnutrition of mild degree (HCC) [E44.1] 01/12/2016 Pulmonary emphysema (HCC) [J43.9] 07/05/2016 Allergic rhinitis due to fungal spores [J30.89] 04/10/2018 Seasonal allergic rhinitis due to pollen [J30.1]04/10/2018 Screening for colon cancer [Z12.11] 04/03/2019 GHASSAN on CPAP [G47.33] 12/30/2021 Encounter Status:Closed by [facility] KALRI DUKE ([id number]) 1965 M Date Time Provider Department 08/01/24 10:00 AM ALBERTO AVELAR During your visit today, we recorded the following information about you: Pulse Respiration Blood pressure Weight 96/minute 20/minute 150/82 68.3 kg Alberto Avelar MD 08/01/2024 5:03 PM Signed Transitional Care Management TCM Eligibility Documentation The following information was gathered during patient outreach 07/23/2024 Date of Outreach: Outreach Attempt 1: Contact Made Date of Discharge 07/22/2024 Provider Documentation Karli Duke is a 58 year old male here today for a follow up from recent hospitalization. I have reviewed the patient's hospital course including discharge summary, discharge medications , and follow up needs with the patient and any family members present at today's visit. HPI Pt here today for a 14 day TCM. Had appt with Pulmonary today prior to visit today. Pt states he is feeling better than he did when he was in the ER. He has to get up a lot to urinate due to being on Lasix, getting up every 3 hours and when he wakes up he is sore and stiff from laying on this right side, he states he doesn't move in his sleep. He is unable to lay on Left side due to rib pain. He is using 2 L oxygen all day and night. He monitors his O2 levels occ at home, is staying above 90% most of the time. He feels his energy is decent and appetite is better. He is able to eat now. Wasn't eating much when he went to ER, was getting SOB just eating. Saw Pulmonary Mily Tapia CNP yesterday. He has completed his antibiotics and prednisone. Had CXR done yesterday that was negative, pneumonia had cleared up. He is using the inhalers and nebulizer tx prn. He is taking Singular 10 mg daily. Still retaining fluid which makes him uncomfortable but that is doing much better. Is on Lasix 20 mg daily. Anxiety AND Sleep difficulty: Anxiety is doing better, manageable right now. Taking Buspar 10 mg 1 pill TID. He stated he was given Xanax while admitted and it knocked him out, slept great. He has used Melatonin to help him sleep but stated he took it one time and it must not have mixed well with one his other medications because he was trippin. He has to get up a lot to urinate due to being on Lasix, getting up every 3 hours and when he wakes up he is sore and stiff from laying on this right side, he states he doesn't move in his sleep. He is unable to lay on Left side due to rib pain. Would like to get a motorized scooter. Has not contacted any companies for a scooter yet. Having trouble walking long distances due to his SOB and COPD. [facility] Hospital d/c summary: Discharge Diagnosis (1) COPD exacerbation: Status: Acute Code(s): J44.1 - Chronic obstructive pulmonary disease with (acute) exacerbation (2) Pneumonia: Status: Acute Code(s): J18.9 - Pneumonia, unspecified organism Plan This 58-year-old gentleman is being admitted for progressively worsening shortness of breath, productive cough and worsening dyspnea on exertion for 4 weeks and diagnosed pneumonia. 1. COPD exacerbation probably exacerbated by bilateral pneumonia: [facility] and CTPA initially reviewed. No acute PE. Chronic emphysematous lungs. Mild fibrotic changes in lower lobe andconsolidation in RML, RLL and left lingular lobe. Twelve-lead EKG individually reviewed and shows sinus tachycardia at 104 bpm, QTc 426 ms. Patient is being managed on scheduled bronchodilator, IV Solu-Medrol, Mucinex, incentive spirometry and Pep. 07/21: Triple PCR for SARS-CoV-2, flu and RSV are negative and respiratory panel are negative. Urinary antigens are negative. Continue above treatment. Continue incentive spirometry. 07/22: Patient is doing well. Shortness of breath is almost resolved. Prescription given for burst therapy of prednisone, Mucinex and levofloxacin. Advised follow-up he is icu staff nurse Dr. Millie Sánchez in 2 weeks. 2. Bilateral, RML, RLL and left lingular pneumonia: Patient is started on IV ceftriaxone and azithromycin. As mentioned above. 07/22: As mentioned above 3. Chronic hypoxic respiratory failure: At home patient on 2.5 L/min. Currently 3 L/min. Continue oxygen therapy to keep pulse ox 90%. 07/21: Patient on 3 L of oxygen his baseline. 07/22 Home oxygen qualification test ordered. Currently on 3 L of oxygen. Patient also has mild leg swelling. Lasix 20 mg IV ordered. Prescription for 2weeks of Lasix 20 mg oral ordered. Follow with PCP in 2 weeks 4. Chronic anxiety: Patient on lorazepam 1 mg Q8 hourly as needed for anxiety. 07/21 changed to Xanax 0.5 mg Q8 hourly as needed for anxiety. 5. Former smoker: Patient stated he quit smoking in 2019. Patient also complained of mild gastritis symptoms. On Mylanta as needed. Pantoprazole (more content not included)... Normal [facility] CNOVon 07-30-2024 CNOV Office Visit (PULMWS ) KARLI DUKE ([id number]) 1965 M Date Time Provider Department 07/30/24 1:00 PM MILY TAPIA PULMWS During your visit today, we recorded the following information about you: Pulse Respiration Blood pressure 85/minute 16/minute 122/72 Mily Tapia, [employer] TEACHER.MALTER OPERATOR 07/30/2024 1:42 PM Signed Pulmonary Medicine Patients name: Karli Duke PCP: Alberto Avelar MD CC: hospital follow-up HPI: Karli Duke is a 58 year old male former 35 pack year smoker, quitting in 2016 with PMH significant for childhood asthma, very severe COPD, chronic hypoxemic respiratory failure, allergies previously on IT, SAH, GHASSAN. Has previously declined pulmonary rehab, endobronchial valve assessment and transplant evaluation. Current inhaled therapy with Trelegy Ellipta and as needed albuterol. He presents today for hospital follow-up. [facility] 02/29/2024 with relatively stable respiratory symptoms. He was hospitalized 07/20-07/22 d/t progressively worsening SOB, productive cough and worsening hypoxia. Chest xray with reported RML, RLL and left lingular pneumonia. Respiratory panel and urine antigens negative. Discharged home on Levaquin and Prednisone x5 days, along with Lasix and Mucinex. Per patient, he tested positive for Flu A. He states he completed both the Levaquin and Prednisone. Current symptoms include persistent cough with occasional clear/white sputum. Mucinex has been helpful. No hemoptysis. No wheezing. Has sinus congestion at baseline and causes PND which worsens cough. Uses Singulair and OTC severe sinus medication. Rare dyspnea at rest. Exertional dyspnea (with walking 20-30 feet) has not changed. Notes that LE edema has improved with Lasix. Urinating well. Is scheduled to see his PCP later today to follow. Overall, he feels that SOB is at baseline. Cough has been bothersome and makes it hard for him to fall asleep. Albuterol use is approximately once a day. Monitors SPO2 at home and is typically 93-96. DME: [employer] 2-3L supplemental O2 PAST MEDICAL HISTORY Diagnosis Date Allergic rhinitis Asthma COPD (chronic obstructive pulmonary disease) ([facility]) Very severe Dependence on continuous supplemental oxygen Other and unspecified hyperlipidemia SAH (subarachnoid hemorrhage) ([facility]) Sleep apnea Tobacco abuse Quit 2015. Allergies: Codeine Unknown Mold Other: See Comments Vicodin [Hydrocodon* Mental Status Change Medication List Accurate as of July 30, 2024 12:16 PM. If you have any questions, ask your nurse or doctor. CONTINUE taking these medications albuterol HFA 90 mcg/actuation inhaler Commonly known as: PROVENTIL HFA, VENTOLIN HFA Inhale 2 Puffs as instructed every 4 hours as needed. NEEDED FOR SHORTNESS OF BREATH AND WHEEZING aspirin, enteric coated 81 mg EC tablet Commonly known as: ASPIR-81 Take 1 tablet by mouth once daily. busPIRone 10 mg tablet Commonly known as: BUSPAR Take 1 tablet by mouth three times a day. jvnhowbpyto-knohrkmml-uilhys er 200-62.5-25 mcg inhalation powder Commonly known as: TRELEGY ELLIPTA Inhale 1 Puff as instructed once daily. loratadine 10 mg Cap melatonin 10 mg Chew montelukast 10 mg tablet Commonly known as: SINGULAIR Take 1 tablet by mouth daily at bedtime. MULTIVITAMIN ORAL pantoprazole DR 40 mg tablet Commonly known as: PROTONIX take 1 tablet by mouth every day VITAMIN C 250 mg tablet Generic drug: ascorbic acid (vitamin C) VITAMIN D2 ORAL Vitamin E (dl, acetate) 134 mg (200 unit) Capsule Commonly known as: VITAMIN E DATA: I personally reviewed and analyzed all labs, radiographs and available pulmonary function testing PFT: 08/29/2023 Spirometry indicates very severe obstruction. The increased TLC indicates hyperinflation. The RV and RV/TLC are elevated indicating air trapping. The diffusing capacity is severely reduced. The presence of a reduced lung diffusing capacity - that does not normalize when measured independent of alveolar volume (kCO) suggests a parenchymal or pulmonary vascular disorder. 02/29/2024 CT Chest: 05/20/2024 IMPRESSION: 1. Mild emphysema. 2. Slight interval increase in size of an ill-defined now 5 mm left upper lobe nodule. Close attention on follow-up imaging is advised. 3. Remainder of the nodular opacities including a 1.5 cm right upper lobe groundglass opacity appear stable. Laboratory Helper: FABIANA Transcribe Date/Time: May 22 2024 12:58P Dictated by : BIBI BOWER MD This examination was interpreted and the report reviewed and electronically signed by: BIBI BOWER MD on May 22 2024 1:04PM EST Results-Findings * * *Final Report* * * DATE OF EXAM: May 20 2024 11:37AM [facility] 05[facility] - CT CHEST WO IVCON / PROCEDURE REASON: Lung nodules * * * * Physician Interpretation * * * * EXAMINATION: CHEST CT (more content not included)... Normal [facility] Comprehensive metabolic 2000 panelon 07-30-2024 Albumin [Mass/Vol] 4.4 g/dL Normal 3.9-4.9 [facility] Comment on above: Order Comment: Speci men Type: BLOOD SPECIMENOrdering Facility: [facility] Address: [address] [place] [id number] Performed By: #### 2 4323-8 ####[facility] DAYTONA BEACHStefanie [id number] [place] [address] [place] ALP [Catalytic activity/Vol] 81 U/L Normal 38-113 [facility] Comment on above: Order Comment: Speci men Type: BLOOD SPECIMENOrdering Facility: [facility] Address: [address] [place] [address] Performed By: #### 2 4323-8 ####[facility]ITALNCLIA [id number] [place] [address] [place] ALT [Catalytic activity/Vol] 84 U/L High 10-54 [facility] Comment on above: Order Comment: Speci men Type: BLOOD SPECIMENOrdering Facility: [facility] Address: [address] [place] [address] Performed By: #### 2 4323-8 ####[facility] [id number] [place] [address] [place] Anion gap [Moles/Vol] 11 mmol/L Normal 8-15 [facility] Comment on above: Order Comment: Speci men Type: BLOOD SPECIMENOrdering Facility: [facility] Address: [address] [place] [address] Performed By: #### 2 4323-8 ####[facility] [id number] [address] [place] AST [Catalytic activity/Vol] 35 U/L Normal 14-40 [facility] Comment on above: Order Comment: Speci men Type: BLOOD SPECIMENOrdering Facility: [facility] Address: [address] [place] [address] Performed By: #### 2 4323-8 ####[facility] [id number] [place] [address] [place] Bilirubin [Mass/Vol] 0.4 mg/dL Normal 0.2-1.3 [facility] Comment on above: Order Comment: Speci men Type: BLOOD SPECIMENOrdering Facility: [facility] Address: [address] [place] [address] Performed By: #### 2 4323-8 ####[facility] MILLTOWNCLIA [id number] [place] [address] [place] Calcium [Mass/Vol] 10.1 mg/dL Normal 8.5-10.2 [facility] Comment on above: Order Comment: Speci men Type: BLOOD SPECIMENOrdering Facility: [facility] Address: [address] [place] [address] Performed By: #### 2 4323-8 ####[facility] MILLTOWNCLIA [id number] [place] [address] [place] Chloride [Moles/Vol] 96 mmol/L Low 98-107 [facility] Comment on above: Order Comment: Speci men Type: BLOOD SPECIMENOrdering Facility: [facility] Address: [address] [place] [address] Performed By: #### 2 4323-8 ####[facility] [id number] [place] [address] [place] CO2 [Moles/Vol] 33 mmol/L High 22-30 [facility] Comment on above: Order Comment: Speci men Type: BLOOD SPECIMENOrdering Facility: [facility] Address: [address] [place] [address] Performed By: #### 2 4323-8 ####[facility] MILLTOWNCLIA [id number] [place] [address] [place] Creatinine [Mass/Vol] 0.81 mg/dL Normal 0.73-1.22 [facility] Comment on above: Order Comment: Speci men Type: BLOOD SPECIMENOrdering Facility: [facility] Address: [address] [place] [address] Performed By: #### 2 4323-8 ####[facility] MILLWNCLIA [id number] [place] [address] [place] Creatinine and Glomerular filtration rate.predicted panel (S/P/Bld) 103 mL/min/1.73m??? Normal >=60 [facility] Comment on above: Order Comment: Marquita ortiz Type: BLOOD SPECIMENOrdering Facility: [facility] Address: [address] [place] [address] Result Comment: Abigail mated Glomerular Filtration Rate (eGFR) is calculated using the 2020 CKD-EPI creatinine equation. This equation utilizes serum creatinine, sex, and age as parameters. The creatinine assay has traceable calibration to isotope dilution-mass spectrometry. Refer to KDIGO guidelines for clinical interpretation. In patients with unstable renal function, e.g. those with acute kidney injury, the eGFR may not accurately reflect actual GFR. Performed By: #### 2 4323-8 ####[facility] [id number] [place] [address] [place] Glucose [Mass/Vol] 120 mg/dL High 74-99 [facility] Comment on above: Order Comment: Marquita ortiz Type: BLOOD SPECIMENOrdering Facility: [facility] Address: [address] [place] [address] Result Comment: The [place] Diabetes Association (ADA) provides guidance for cutoff values for fasting glucose and random glucose. The ADA defines fasting as no caloric intake for at least 8 hours. Fasting plasma glucose results between 100 to 125 mg/dL indicate increased risk for diabetes (prediabetes). Fasting plasma glucose results greater than or equal to 126 mg/dL meet the criteria for diagnosis of diabetes. In the absence of unequivocal hyperglycemia, results should be confirmed by repeat testing. In a patient with classic symptoms of hyperglycemia or hyperglycemic crisis, random plasma glucose results greater than or equal to 200 mg/dL meet the criteria for diagnosis of diabetes. Reference: Standards of Medical Care in Diabetes 2016, [place] Diabetes Association. Diabetes Care. 2016.39(Suppl 1). Performed By: #### 2 4323-8 ####[facility] [id number] [place] [address] [place] Potassium [Moles/Vol] 3.8 mmol/L Normal 3.7-5.1 [facility] Comment on above: Order Comment: Speci men Type: BLOOD SPECIMENOrdering Facility: [facility] Address: [address] [place] [address] Performed By: #### 2 4323-8 ####[facility] [id number] [place] [address] [place] Protein [Mass/Vol] 7.3 g/dL Normal 6.3-8.0 [facility] Comment on above: Order Comment: Speci men Type: BLOOD SPECIMENOrdering Facility: [facility] Address: [address] [place] [address] Performed By: #### 2 4323-8 ####[facility] [id number] [place] [address] [place] Sodium [Moles/Vol] 140 mmol/L Normal 136-144 [facility] Comment on above: Order Comment: Speci men Type: BLOOD SPECIMENOrdering Facility: [facility] Address: [address] [place] [address] Performed By: #### 2 4323-8 ####[facility] [id number] [place] [address] [place] Urea nitrogen [Mass/Vol] 14 mg/dL Normal 9-24 [facility] Comment on above: Order Comment: Speci men Type: BLOOD SPECIMENOrdering Facility: [facility] Address: [address] [place] [address] Performed By: #### 2 4323-8 ####[facility] [id number] [place] [address] [place] LIPID PANEL, NONFASTINGon Cholesterol [Mass/Vol] 232 mg/dL High <200 [facility] Comment on above: Order Comment: Speci men Type: BLOOD SPECIMENOrdering Facility: [facility] Address: [address] [place] [address] Result Comment: <200 mg/dL, Desirable 200-239 mg/dL, Borderline high >239 mg/dL, High Performed By: #### L IPNF ####[facility] LABCLIA [id number] [place] [address] [place] HDL CHOLESTEROL, NF 46 mg/dL Normal >39 [facility] Comment on above: Order Comment: Marquita men Type: BLOOD SPECIMENOrdering Facility: [facility] Address: [address] [place] [address] Result Comment: 40-5 9 mg/dL, Acceptable >59 mg/dL, High: Negative risk factor for coronary heart disease <40 mg/dL, Low: Positive risk factor for coronary heart disease Performed By: #### L IPNF ####[facility] LABCLIA [id number] [place] [address] [place] LDL CHOLESTEROL, NF 134 mg/dL High <100 [facility] Comment on above: Order Comment: Marquita ortiz Type: BLOOD SPECIMENOrdering Facility: [facility] Address: [address] [place] [address] Result Comment: <100 mg/dL, Optimal 100-129 mg/dL, Near optimal/above optimal 130-159 mg/dL, Borderline high 160-189 mg/dL, High >189 mg/dL, Very high Secondary prevention optimal LDL Cholesterol levels are recommended to be < 70 mg/dL Performed By: #### L IPNF ####[facility] LABCLIA [id number] [place] [address] [place] LDL/HDL RATIO, NF 2.91 mg/dL High <2.54 [facility] Comment on above: Order Comment: Marquita diana Type: BLOOD SPECIMENOrdering Facility: [facility] Address: [address] [place] [address] Result Comment: Refe rence: 1. National Cholesterol Education Program ATP III Guideline At-A-Glance Quick Desk Reference: National Heart, Lung, and Blood [place]. National Institutes of Health. 2001: NIH Publication No. 01-3305. 2. An International Atherosclerosis Society position paper: global recommendations for the management of dyslipidemia: executive summary, Atherosclerosis. 2014: 232(2):410-413. Performed By: #### L IPNF ####[facility] LABCLIA [id number] [address] [place] NON HDL CHOL, NF 186 mg/dL High <130 [facility] Comment on above: Order Comment: Marquita ortiz Type: BLOOD SPECIMENOrdering Facility: [facility] Address: [address] [place] [address] Result Comment: <130 mg/dL, Optimal 130-159 mg/dL, Near optimal/above optimal 160-189 mg/dL, Borderline high 190-219 mg/dL, High >219 mg/dL, Very high Secondary prevention optimal non HDL Cholesterol levels are recommended to be <100 mg/dL Performed By: #### L IPNF ####[facility] LABCLIA [id number] [address] T CHOL/HDL RATIO NF 5.04 mg/dL Normal <5.10 [facility] Comment on above: Order Comment: Marquita ortiz Type: BLOOD SPECIMENOrdering Facility: [facility] Address: [address] [place] [address] Performed By: #### L IPNF ####[facility] LABCLIA [id number] [place] [address] [place] TRIGLYCERIDES, NF 262 mg/dL High <150 [facility] Comment on above: Order Comment: Marquita ortiz Type: BLOOD SPECIMENOrdering Facility: [facility] Address: [address] [place] [address] Result Comment: <150 mg/dL, Normal 150-199 mg/dL, Borderline high 200-499 mg/dL, High >499 mg/dL, Very high Performed By: #### L IPNF ####[facility] LABCLIA [id number] [address] [place] VLDL CHOLESTEROL, NF 52 mg/dL High <30 [facility] Comment on above: Order Comment: Speci men Type: BLOOD SPECIMENOrdering Facility: [facility] Address: [address] [place] [address] Performed By: #### L IPNF ####[facility] LABCLIA [id number] [place] [address] [place] PSA/PROSTATE SPECIFIC ANTIGE N SCREENINGon 07-30-2024 Prostate specific Ag [Mass/Vol] 0.62 ng/mL Normal <2.60 [facility] Comment on above: Order Comment: Speci men Type: BLOOD SPECIMENOrdering Facility: [facility] Address: [address] [place] [address] Result Comment: Jonathan jones PSA test methodology used is the Electrochemiluminescence Immunoassay by [employer]. Total PSA values by differing methodologies cannot be interchanged. Performed By: #### P SAS1 ####[facility] LABCLIA [id number] [place] [address] [place] XR CHEST 2V FRONTAL/LATon XR CHEST 2V FRONTAL/LAT * * *Final Report* * * DATE OF EXAM: Jul 30 2024 1:56PM [id number] - XR CHEST 2V FRONTAL/LAT / PROCEDURE REASON: Pneumonia of both lower lobes due to infectious organism * * * * Physician Interpretation * * * * EXAMINATION: CHEST RADIOGRAPH (2 VIEW FRONTAL and LATERAL) CLINICAL HISTORY: Pneumonia of both lower lobes due to infectious organism MQ: XC2_6 EXAM DATE/TIME: 07/30/2024 1:56 PM COMPARISON: Chest x-ray of 01/23/2019 RESULT: Lines, tubes, and devices: None. Lungs and pleura: No consolidation. Patchy atelectasis/scarring at the right base laterally. There is a 2 x 1.5 cm focal density overlying the central upper chest at the level of T4 vertebral body on the right. Lateral view demonstrates this to be superficial, possibly on the skin and clinical correlation is needed. No pleural effusion. No pneumothorax. Cardiomediastinal silhouette: Stable cardiomediastinal silhouette. Bones and soft tissues: Unremarkable. IMPRESSION: As above Laboratory Helper: PSCB Transcribe Date/Time: Jul 30 2024 2:36P Dictated by : CAROLIN PARKER MD This examination was interpreted and the report reviewed and electronically signed by: CAROLIN PARKER MD on Jul 30 2024 2:43PM EST [id number] Normal [facility] XR Chest PA and Lateralon IMPRESSION: As above Laboratory Helper: PSCB Transcribe Date/Time: Jul 30 2024 2:36P Dictated by : CAROLIN PARKER MD This examination was interpreted and the report reviewed and electronically signed by: CAROLIN PARKER MD on Jul 30 2024 2:43PM EST DIVISION OF RADIOLOGY * * *Final Report* * * DATE OF EXAM: Jul 30 2024 1:56PM [id number] - XR CHEST 2V FRONTAL/LAT / PROCEDURE REASON: Pneumonia of both lower lobes due to infectious organism * * * * Physician Interpretation * * * * EXAMINATION: CHEST RADIOGRAPH (2 VIEW FRONTAL & LATERAL) CLINICAL HISTORY: Pneumonia of both lower lobes due to infectious organism MQ: XC2_6 EXAM DATE/TIME: 07/30/2024 1:56 PM COMPARISON: Chest x-ray of 01/23/2019 RESULT: Lines, tubes, and devices: None. Lungs and pleura: No consolidation. Patchy atelectasis/scarring at the right base laterally. There is a 2 x 1.5 cm focal density overlying the central upper chest at the level of T4 vertebral body on the right. Lateral view demonstrates this to be superficial, possibly on the skin and clinical correlation is needed. No pleural effusion. No pneumothorax. Cardiomediastinal silhouette: Stable cardiomediastinal silhouette. Bones and soft tissues: Unremarkable. DIVISION OF RADIOLOGY Provider, [facility] - 07/30/2024 * * *Final Report* * * DATE OF EXAM: Jul 30 2024 1:56PM [id number] - XR CHEST 2V FRONTAL/LAT / PROCEDURE REASON: Pneumonia of both lower lobes due to infectious organism * * * * Physician Interpretation * * * * EXAMINATION: CHEST RADIOGRAPH (2 VIEW FRONTAL & LATERAL) CLINICAL HISTORY: Pneumonia of both lower lobes due to infectious organism MQ: XC2_6 EXAM DATE/TIME: 07/30/2024 1:56 PM COMPARISON: Chest x-ray of 01/23/2019 RESULT: Lines, tubes, and devices: None. Lungs and pleura: No consolidation. Patchy atelectasis/scarring at the right base laterally. There is a 2 x 1.5 cm focal density overlying the central upper chest at the level of T4 vertebral body on the right. Lateral view demonstrates this to be superficial, possibly on the skin and clinical correlation is needed. No pleural effusion. No pneumothorax. Cardiomediastinal silhouette: Stable cardiomediastinal silhouette. Bones and soft tissues: Unremarkable. IMPRESSION IMPRESSION: As above Laboratory Helper: PSCB Transcribe Date/Time: Jul 30 2024 2:36P Dictated by : CAROLIN PARKER MD This examination was interpreted and the report reviewed and electronically signed by: CAROLIN PARKER MD on Jul 30 2024 2:43PM EST [facility] Radiology Study observation (narrative) [facility] XR Chest PA and LateralOrder ed By: [facility] Provider on 07-30-2024 [facility] Culture, Blood (WB)on 2024 CUB Blood cultures x2, f rom two different sites No growth in 5 days. Normal [facility] Comment on above: Performed By: #### M 200.1000 #### [facility] [address] [place], [place], [id number] Respiratory Cultureon 2024 RESPC Staphylococcus aureu s Amount Growth 1+ Staphylococcus aureus: REACTION cefOXitin Susc Islt NEG Doxycycline Islt ALL <=0.5 S Clindamycin Islt ALL R Clindamycin.induced Susc Islt POS Erythromycin Islt ALL R Gentamicin Islt ALL <=0.5 S Linezolid Islt ALL 2 S Moxifloxacin Islt ALL <=0.25 S Oxacillin Susc Islt 0.5 S Tetracycline Islt ALL <=1 S TMP SMX Islt ALL <=10 S Vancomycin Islt ALL 1 S Normal [facility] Comment on above: Performed By: #### M 100.2400, M100.2000 #### [facility] [address] [place], [address] Gram Stainon 07-23-2024 GS Acceptable Specimen? Yes (<25 Epithelial cells per/lpf) Gram Stain 1+ Epithelial cells 1+ Gram positive cocci No White Blood Cells 2+ Gram variable elvin Normal [facility] Comment on above: Performed By: #### M 100.2400, #### [facility] [address] [place], [address] Basic Metabolic Profile (BMP )on 07-22-2024 BUN/CRE 27.6 RATIO High 04-21 [facility] Comment on above: Performed By: #### M 100.240, #### [facility] [address] [place], [address] CA,Total 9.3 mg/dL Normal 8.5-10.1 [facility] Comment on above: Performed By: #### M 100.240, #### [facility] [address] [place], [address] Chloride [Moles/Vol] 103 mmol/L Normal 98-107 [facility] Comment on above: Performed By: #### M 100.240, #### [facility] [address] [place], [address] CO2 [Moles/Vol] 32.0 mmol/L Normal 21.0-32.0 [facility] Comment on above: Performed By: #### M 100.240, #### [facility] [address] [place], [address] Creatinine [Mass/Vol] 0.69 mg/dL Low 0.70-1.30 [facility] Comment on above: Result Comment: The validity of the calculated GFR GFRAA in patients over 70 years has not been determined. Clinical correlation is essential. Performed By: #### M 100.2400, #### [facility] [address] [place], [address] ECRCL 96.21 ml/min Normal [facility] Comment on above: Performed By: #### M 100.2400, #### [facility] [address] [place], [address] EST GFR - AA 153 mL/min Normal >60 [facility] Comment on above: Result Comment: Afri can [place] GFR Calc Performed By: #### M 100.2400, #### [facility] [address] [place], [address] GAP 2 Low 5-15 [facility] Comment on above: Performed By: #### M 100.240, #### [facility] [address] [place], [address] GFR/1.73 sq M.predicted among non-blacks MDRD (S/P/Bld) [Vol rate/Area] 126 mL/min/{1.73_m2} Normal >60 [facility] Comment on above: Result Comment: Non- GFR Calc Performed By: #### M 100.2400, #### [facility] [address] [place], [address] Glucose [Mass/Vol] 154 mg/dL High 74-106 [facility] Comment on above: Result Comment: Fast ing Glucose result greater than or equal to 126 mg/dL suggests DIABETES MELLITUS per A.D.A. criteria. Performed By: #### M 100.2400, #### [facility] [address] [place], [address] Potassium [Moles/Vol] 4.4 mmol/L Normal 3.5-5.1 [facility] Comment on above: Performed By: #### M 100.2400, #### [facility] [address] [place], [address] Sodium [Moles/Vol] 137 mmol/L Normal 136-145 [facility] Comment on above: Performed By: #### M 100.2400, M100.2000 #### [facility] [address] [place], [address] Urea nitrogen [Mass/Vol] 19 mg/dL High 7-18 [facility] Comment on above: Performed By: #### M 100.2400, M100.2000 #### [facility] [address] [place], [address] CBC W/Diff, Automatedon 01-2 0-2025 Absolute Lymph 1.06 X10 3/uL Normal 0.83-4.51 [facility] Comment on above: Performed By: #### L 100.0100, L500.2500 #### [facility] [address] [place], [address] Absolute Neut 16.7 X10 3/uL High 2.0-7.7 [facility] Comment on above: Performed By: #### L 100.0100, L500.2500 #### [facility] [address] [place], [address] Basophils/100 WBC (Bld) 0.1 % Normal 0-1 [facility] Comment on above: Performed By: #### L 100.0100, L500.2500 #### [facility] [address] [place], [address] Eosinophils/100 WBC (Bld) 0.0 % Normal 0-5 [facility] Comment on above: Performed By: #### L 100.0100, L500.2500 #### [facility] [address] [place], [address] Erythrocyte distribution width (RBC) [Ratio] 12.3 % Normal 11.6-14.6 [facility] Comment on above: Performed By: #### L 100.0100, L500.2500 #### [facility] [address] [place], [address] Hematocrit (Bld) [Volume fraction] 37.4 % Low 40-54 [facility] Comment on above: Performed By: #### L 100.0100, L500.2500 #### [facility] [address] [place], [address] Hemoglobin (Bld) [Mass/Vol] 12.3 g/dL Low 13.0-16.5 [facility] Comment on above: Performed By: #### L 100.0100, L500.2500 #### [facility] [address] [place], [address] IG% 0.700 Normal 0.0-0.9 [facility] Comment on above: Result Comment: IG% - Immature Granulocytes (promyelocytes, myelocytes and metamyelocytes) > 1% indicates that a LEFT SHIFT is Present. Performed By: #### L 100.0100, L500.2500 #### [facility] [address] [place], [address] Lymphocytes/100 WBC (Bld) 5.6 % Low 19-41 [facility] Comment on above: Performed By: #### L 100.0100, L500.2500 #### [facility] [address] [place], [address] MCH (RBC) [Entitic mass] 31.1 pg Normal 27.0-32.0 [facility] Comment on above: Performed By: #### L 100.0100, L500.2500 #### [facility] [address] [place], [address] MCHC (RBC) [Mass/Vol] 32.9 g/dL Normal 32-36 [facility] Comment on above: Performed By: #### L 100.0100, L500.2500 #### [facility] [address] [place], [address] MCV (RBC) [Entitic vol] 94.7 fL High 80-94 [facility] Comment on above: Performed By: #### L 100.0100, L500.2500 #### [facility] [address] [place], [address] Monocytes/100 WBC (Bld) 4.5 % Normal 0-10 [facility] Comment on above: Performed By: #### L 100.0100, L500.2500 #### [facility] [address] [place], [address] Neutrophils/100 WBC (Bld) 89.1 % High 47-70 [facility] Comment on above: Performed By: #### L 100.0100, L500.2500 #### [facility] [address] [place], [address] Nucleated RBC (Bld) [#/Vol] 0 10*3/uL Normal 0-5 [facility] Comment on above: Performed By: #### L 100.0100, L500.2500 #### [facility] [address] [place], [address] Platelet mean volume (Bld) [Entitic vol] 8.7 fL Normal 6.2-12.0 [facility] Comment on above: Performed By: #### L 100.0100, L500.2500 #### [facility] [address] [place], [address] Platelets (Bld) [#/Vol] 305 10*3/uL Normal 150-450 [facility] Comment on above: Performed By: #### L 100.0100, L500.2500 #### [facility] [address] [place], [address] RBC (Bld) [#/Vol] 3.95 10*6/uL Low 4.6-6.2 [facility] Comment on above: Performed By: #### L 100.0100, L500.2500 #### [facility] [address] [place], [address] RDW SD 42.8 fl Normal 35.1-43.9 [facility] Comment on above: Performed By: #### L 100.0100, L500.2500 #### [facility] [address] [place], [address] WBC (Bld) [#/Vol] 18.8 10*3/uL High 4.4-11.0 [facility] Comment on above: Performed By: #### L 100.0100, L500.2500 #### [facility] [address] [place], [address] Discharge Instructionon 07-04 Discharge Instruction [facility] Medical Records Department [address] [place] [address] Instructions for Home/Discharge Instructions 07/22/24 0940 MR#: [id number] Acct: [id number] Name: KARLI DUKE Rep #: [id number] : [id number] 58 From: Colton Gandhi MD PCP: Dr. Alberto Avelar MD Status:ADM IN Discharge Instructions Diet Discharge Diet: 2000 mg Sodium Diet DC O2, CPAP, BIPAP needs Home O2 Discharge instructions: Yes Type of respiratory needs?: Oxygen Oxygen frequency: Continuous (3l/M) Continuous oxygen liters per minute: 3 l/M Dressing / Incision Discharge Activity: Return to Normal Activity Weight Bearing Status: Weight bearing as tolerated Dressing / Incision Call your doctor if you observe: Fever of 101 or Higher, Coldness, Increased Pain, Numbness or Tingling, Change in Color, Inability to urinate, Inability to have a bowel movement, Shortness of breath, Dizziness, Fainting spells, Swelling in the ankles, Chest pain, Prolonged hiccupping, Increased palpitations (irregular heartbeat) and Calf discomfort Follow Up Care When: IN 2 WEEKS Test Results: Test results from this visit will be discussed in further detail at your follow-up appointment, if applicable. Discharge Plan Admission Admit Date/Time: 07/20/24 13:28 Primary Reason for Your Visit: COPD exacerbation Attending Provider: Colton Gandhi Primary Care Provider: Alberto Avelar Instructions Additional Instructions / Restrictions: Follow-up with her own icu staff nurse Dr. Millie Sánchez in 2 weeks Discharge Orders/Prescriptions Prescriptions: New levofloxacin 500 mg tablet 500 mg PO DAILY 5 Days Qty: 5 0RF prednisone 20 mg tablet 40 mg PO DAILY 5 Days Qty: 10 0RF furosemide [Lasix] 20 mg tablet 20 mg PO DAILY 14 Days Qty: 14 0RF Continued aspirin 325 MG tablet 325 mg PO DAILY diphenhydramine HCl [Benadryl Allergy] 25 MG tablet 25 mg PO QHS Patient Comments: Pt states he takes 25mg morning and night. albuterol sulfate [Ventolin HFA] 1 INHALER inhaler 1 puff inhalation Q6H PRN PRN (Reason: Cough) multivitamin 1 EACH tablet 1 ea PO DAILY qdtbcrlkcos-wifahsmjf-pryfor er 1 EACH blister with device 1 ea IH DAILY omeprazole 40 MG capsule,delayed release(DR/EC) 40 mg PO DAILY nicotine (polacrilex) 2 MG lozenge 2 mg BC DAILY PRN (Reason: nicotine cravings) mv-min-vit C-Glu-Talia ac-hb124 1 EACH tablet,chewable 1 ea PO DAILY lorazepam 1 MG tablet 1 mg PO Q8H PRN PRN (Reason: Anxiety) Qty: 14 0RF buspirone 10 mg tablet 10 mg PO TID montelukast 10 mg tablet 10 mg PO QHS guaifenesin 1,200 MG tablet 1,200 mg PO BID 7 Days Qty: 14 0RF Referrals / Follow Up: Alberto Avelar MD [Primary Care Provider] - Within 2 Weeks (Has leg swelling. Given diuretic patient. Will need follow-up BMP) Disposition Disposition (needs filled in before D/C Order can be placed): Home, Self Care 07/22/24 0948 Colton Gandhi MD CC: Dr. Alberto Avelar MD Signed Normal [facility] Basic Metabolic Profile (BMP )on 07-21-2024 BUN/CRE 19.4 RATIO Normal 04-21 [facility] Comment on above: Performed By: #### M 100.2400, M100.2000 #### [facility] [address] [place], [address] CA,Total 9.4 mg/dL Normal 8.5-10.1 [facility] Comment on above: Performed By: #### M 100.2399, #### [facility] [address] [place], [address] Chloride [Moles/Vol] 104 mmol/L Normal 98-107 [facility] Comment on above: Performed By: #### M , #### [facility] [address] [place], [address] CO2 [Moles/Vol] 28.0 mmol/L Normal 21.0-32.0 [facility] Comment on above: Performed By: #### M , #### [facility] [address] [place], [address] Creatinine [Mass/Vol] 0.67 mg/dL Low 0.70-1.30 [facility] Comment on above: Result Comment: The validity of the calculated GFR GFRAA in patients over 70 years has not been determined. Clinical correlation is essential. Performed By: #### M , #### [facility] [address] [place], [address] ECRCL 99.08 ml/min Normal [facility] Comment on above: Performed By: #### M 100, #### [facility] [address] [place], [address] EST GFR - AA 158 mL/min Normal >60 [facility] Comment on above: Result Comment: Afri can Trinidadian GFR Calc Performed By: #### M , #### [facility] [address] [place], [address] GAP 4 Low 5-15 [facility] Comment on above: Performed By: #### M 100.240, #### [facility] [address] [place], [address] GFR/1.73 sq M.predicted among non-blacks MDRD (S/P/Bld) [Vol rate/Area] 130 mL/min/{1.73_m2} Normal >60 [facility] Comment on above: Result Comment: Non- GFR Calc Performed By: #### M 100.240, #### [facility] [address] [place], [address] Glucose [Mass/Vol] 168 mg/dL High 74-106 [facility] Comment on above: Result Comment: Fast ing Glucose result greater than or equal to 126 mg/dL suggests DIABETES MELLITUS per A.D.A. criteria. Performed By: #### M 100.240, #### [facility] [address] [place], [address] Potassium [Moles/Vol] 4.2 mmol/L Normal 3.5-5.1 [facility] Comment on above: Performed By: #### M 100.240, #### [facility] [address] [place], [address] Sodium [Moles/Vol] 136 mmol/L Normal 136-145 [facility] Comment on above: Performed By: #### M 100.240, #### [facility] [address] [place], [address] Urea nitrogen [Mass/Vol] 13 mg/dL Normal 7-18 [facility] Comment on above: Performed By: #### M 100.240, #### [facility] [address] [place], [address] CBC W/Diff, Automatedon 07-03 Absolute Lymph 0.83 X10 3/uL Normal 0.83-4.51 [facility] Comment on above: Performed By: #### M 100.2400, #### [facility] [address] [place], [address] Absolute Neut 15.4 X10 3/uL High 2.0-7.7 [facility] Comment on above: Performed By: #### M 100.2400, #### [facility] [address] [place], [address] Basophils/100 WBC (Bld) 0.1 % Normal 0-1 [facility] Comment on above: Performed By: #### M 100.240, #### [facility] [address] [place], [address] Eosinophils/100 WBC (Bld) 0.0 % Normal 0-5 [facility] Comment on above: Performed By: #### M .240, #### [facility] [address] [place], [address] Erythrocyte distribution width (RBC) [Ratio] 12.2 % Normal 11.6-14.6 [facility] Comment on above: Performed By: #### M 100.2400, #### [facility] [address] [place], [address] Hematocrit (Bld) [Volume fraction] 39.6 % Low 40-54 [facility] Comment on above: Performed By: #### M 100.2400, #### [facility] [address] [place], [address] Hemoglobin (Bld) [Mass/Vol] 13.4 g/dL Normal 13.0-16.5 [facility] Comment on above: Performed By: #### M 100.2400, #### [facility] [address] [place], [address] IG% 0.500 Normal 0.0-0.9 [facility] Comment on above: Result Comment: IG% - Immature Granulocytes (promyelocytes, myelocytes and metamyelocytes) > 1% indicates that a LEFT SHIFT is Present. Performed By: #### M 100.2400, #### [facility] [address] [place], [address] Lymphocytes/100 WBC (Bld) 4.9 % Low 19-41 [facility] Comment on above: Performed By: #### M 100.240, #### [facility] [address] [place], [address] MCH (RBC) [Entitic mass] 31.5 pg Normal 27.0-32.0 [facility] Comment on above: Performed By: #### M 100.240, #### [facility] [address] [place], [address] MCHC (RBC) [Mass/Vol] 33.8 g/dL Normal 32-36 [facility] Comment on above: Performed By: #### M 100.2399, #### [facility] [address] [place], [address] MCV (RBC) [Entitic vol] 93.0 fL Normal 80-94 [facility] Comment on above: Performed By: #### M 100.240, #### [facility] [address] [place], [address] Monocytes/100 WBC (Bld) 2.6 % Normal 0-10 [facility] Comment on above: Performed By: #### M 100.240, #### [facility] [address] [place], [address] Neutrophils/100 WBC (Bld) 91.9 % High 47-70 [facility] Comment on above: Performed By: #### M 100.2400, #### [facility] [address] [place], [address] Nucleated RBC (Bld) [#/Vol] 0 10*3/uL Normal 0-5 [facility] Comment on above: Performed By: #### M 100.2400, #### [facility] [address] [place], [address] Platelet mean volume (Bld) [Entitic vol] 9.0 fL Normal 6.2-12.0 [facility] Comment on above: Performed By: #### M 100.240, #### [facility] [address] [place], [address] Platelets (Bld) [#/Vol] 294 10*3/uL Normal 150-450 [facility] Comment on above: Performed By: #### M .240, #### [facility] [address] [place], [address] RBC (Bld) [#/Vol] 4.26 10*6/uL Low 4.6-6.2 [facility] Comment on above: Performed By: #### M 100.240, #### [facility] [address] [place], [address] RDW SD 41.7 fl Normal 35.1-43.9 [facility] Comment on above: Performed By: #### M 100.240, #### [facility] [address] [place], [address] WBC (Bld) [#/Vol] 16.8 10*3/uL High 4.4-11.0 [facility] Comment on above: Performed By: #### M 100.2400, #### [facility] [address] [place], [address] Legionella Antigen Urineon 0 07-21-2024 LEGU Comments: Only Recom mended for severe cases of pneumonia Only Recommended for severe cases of pneumonia URINE, CLEAN CATCH Legionella Antigen result interpretation: L pneumo Ag Ur Ql Negative Presumptive negative for Legionella pneumophila serogroup 1 antigen in urine, suggesting no recent or current infection. Legionella Ag, Urine Negative (See interpretation below) Normal [facility] Comment on above: Performed By: #### M 100.2400, M100.1999 #### [facility] [address] [place], [address] M100.678on 07-21-2024 M100.678 Pending SARS-CoV-2 (COVID 19) Negative INFLUENZA A Negative INFLUENZA B Negative RSV PCR Negative Normal [facility] Comment on above: Performed By: #### M 100.678 #### [facility] [address] [place], [address] M8200.1000on 07-21-2024 M8200.1000 Normal Reference Ran ge = Negative MRSA DNA Nose Ql MAHESH+probe GeneXpert Instrument, PCR method MRSA PCR MRSA NEGATIVE Normal [facility] Comment on above: Performed By: #### M 8200.1000 #### [facility] [address] [place], [address] Strep pneumoniae Antig(UR,CS F)on 07-21-2024 STPAG Comments: Only Recom mended for severe cases of pneumonia Only Recommended for severe cases of pneumonia URINE, CLEAN CATCH URINE INTERPRETATION Strep pneumoniae Antig(UR,CSF) Negative Urine Presumptive negative for pneumococcal pneumonia, suggesting no current or recent pneumococcal infection. Infection due to S pneumoniae cannot be ruled out since the antigen present in the sample may be below the detection limit of the test. Strep pneumo Test Negative URINE (See interpretation below) Normal [facility] Comment on above: Performed By: #### M 100.2400, M100.2000 #### [facility] [address] [place], [address] 12 Lead EKGon 07-20-2024 12 Lead EKG [facility] [address] [place] [address] 12 Lead EKG 07/20/24 0951 MR#: [id number] Acct: [id number] Name: KARLI DUKE Rep #: [id number] : 1965 58 From: Isaac Barrera MD Attending Dr: Dr. Colton Gandhi MD Status: ADM IN Ordering Dr: Willard Burr DO Date: 07/20/24 Location: [facility] [place] Sex: M C Admitted: 07/20/24 Test Reason : SOB Blood Pressure : */* mmHG Vent. Rate : 104 BPM Atrial Rate : 104 BPM P-R Int : 134 ms QRS Dur : 78 ms QT Int : 324 ms P-R-T Axes : 88 71 73 degrees QTcB Int : 426 ms Sinus tachycardia Otherwise normal ECG Confirmed by ROSANNA BARRERA MD ([id number]), science editor LEVAR JOHN ([id number]) on 07/22/2024 10:44:05 AM Also confirmed by ROSANNA BARRERA MD ([id number]), science editor LEVAR JOHN ([id number]) on 07/22/2024 10:44:18 AM Referred By: DAWSON Confirmed By: ROSANNA BARRERA MD 07/22/24 1044 Date Isaac Barrera MD CC: Dr. Willard Burr DO; Dr. Alberto Avelar MD; Dr. Colton Gandhi MD Signed Normal [facility] BNP,B-Type NATRIURETIC PEPTI Elizabeth 07-20-2024 Natriuretic peptide B (Bld) [Mass/Vol] 12.6 pg/mL Normal 0-100 [facility] Comment on above: Performed By: #### M 100.2400, M100.2000 #### [facility] [address] [place], [address] Basic Metabolic Profile (BMP )on 07-20-2024 BUN/CRE 11.8 RATIO Normal 10-20 [facility] Comment on above: Order Comment: 'TROP ' Serial specimen #1, #2 or #3: 1 Performed By: #### L 500.3400, L500.2500, L501.4020 #### [facility] [address] [place], [address] CA,Total 9.7 mg/dL Normal 8.5-10.1 [facility] Comment on above: Order Comment: 'TROP ' Serial specimen #1, #2 or #3: 1 Performed By: #### L 500.3400, L500.2500, L501.4020 #### [facility] [address] [place], [address] Chloride [Moles/Vol] 100 mmol/L Normal 98-107 [facility] Comment on above: Order Comment: 'TROP ' Serial specimen #1, #2 or #3: 1 Performed By: #### L 500.3400, L500.2500, L501.4020 #### [facility] [address] [place], [address] CO2 [Moles/Vol] 30.0 mmol/L Normal 21.0-32.0 [facility] Comment on above: Order Comment: 'TROP ' Serial specimen #1, #2 or #3: 1 Performed By: #### L 500.3400, L500.2500, L501.4020 #### [facility] [address] [place], [address] Creatinine [Mass/Vol] 0.85 mg/dL Normal 0.70-1.30 [facility] Comment on above: Order Comment: 'TROP ' Serial specimen #1, #2 or #3: 1 Result Comment: The validity of the calculated GFR GFRAA in patients over 70 years has not been determined. Clinical correlation is essential. Performed By: #### L 500.3400, L500.2500, L501.4020 #### [facility] [address] [place], [address] ECRCL 85.56 ml/min Normal [facility] Comment on above: Order Comment: 'TROP ' Serial specimen #1, #2 or #3: 1 Performed By: #### L 500.3400, L500.2500, L501.4020 #### [facility] [address] [place], [address] EST GFR - AA 120 mL/min Normal >60 [facility] Comment on above: Order Comment: 'TROP ' Serial specimen #1, #2 or #3: 1 Result Comment: Afri can Trinidadian GFR Calc Performed By: #### L 500.3400, L500.2500, L501.4020 #### [facility] [address] [place], [address] GAP 6 Normal 5-15 [facility] Comment on above: Order Comment: 'TROP ' Serial specimen #1, #2 or #3: 1 Performed By: #### L 500.3400, L500.2500, L501.4020 #### [facility] [address] [place], [address] GFR/1.73 sq M.predicted among non-blacks MDRD (S/P/Bld) [Vol rate/Area] 99 mL/min/{1.73_m2} Normal >60 [facility] Comment on above: Order Comment: 'TROP ' Serial specimen #1, #2 or #3: 1 Result Comment: Non- GFR Calc Performed By: #### L 500.3400, L500.2500, L501.4020 #### [facility] [address] [place], [address] Glucose [Mass/Vol] 148 mg/dL High 74-106 [facility] Comment on above: Order Comment: 'TROP ' Serial specimen #1, #2 or #3: 1 Result Comment: Fast ing Glucose result greater than or equal to 126 mg/dL suggests DIABETES MELLITUS per A.D.A. criteria. Performed By: #### L 500.3400, L500.2500, L501.4020 #### [facility] [address] [place], [address] Potassium [Moles/Vol] 4.8 mmol/L Normal 3.5-5.1 [facility] Comment on above: Order Comment: 'TROP ' Serial specimen #1, #2 or #3: 1 Result Comment: Mode rate Hemolysis, Result may be falsely increased. Performed By: #### L 500.3400, L500.2500, L501.4020 #### [facility] [address] [place], [address] Sodium [Moles/Vol] 136 mmol/L Normal 136-145 [facility] Comment on above: Order Comment: 'TROP ' Serial specimen #1, #2 or #3: 1 Performed By: #### L 500.3400, L500.2500, L501.4020 #### [facility] [address] [place], [address] Urea nitrogen [Mass/Vol] 10 mg/dL Normal 7-18 [facility] Comment on above: Order Comment: 'TROP ' Serial specimen #1, #2 or #3: 1 Performed By: #### L 500.3400, L500.2500, L501.4020 #### [facility] [address] [place], [address] Bedside Glucoseon 07-20-2024 FINGERSTICK GLU 137 mg/dL High 74-106 [facility] Comment on above: Result Comment: RELL EL OF PATIENT CARE PER NURSING PROTOCOL Performed By: #### M 100.2400, #### [facility] [address] [place], [address] CBC W/Diff, Automatedon 07-03 Absolute Lymph 0.76 X10 3/uL Low 0.83-4.51 [facility] Comment on above: Performed By: #### M 100.2400, #### [facility] [address] [place], [address] Absolute Neut 17.7 X10 3/uL High 2.0-7.7 [facility] Comment on above: Performed By: #### M 100.2400, #### [facility] [address] [place], [address] Basophils/100 WBC (Bld) 0.4 % Normal 0-1 [facility] Comment on above: Performed By: #### M 100.240, #### [facility] [address] [place], [address] Eosinophils/100 WBC (Bld) 0.1 % Normal 0-5 [facility] Comment on above: Performed By: #### M 100.2399, #### [facility] [address] [place], [address] Erythrocyte distribution width (RBC) [Ratio] 12.1 % Normal 11.6-14.6 [facility] Comment on above: Performed By: #### M 100.2399, #### [facility] [address] [place], [address] Hematocrit (Bld) [Volume fraction] 46.5 % Normal 40-54 [facility] Comment on above: Performed By: #### M 100.240, #### [facility] [address] [place], [address] Hemoglobin (Bld) [Mass/Vol] 15.8 g/dL Normal 13.0-16.5 [facility] Comment on above: Performed By: #### M 100.2400, #### [facility] [address] [place], [address] IG% 0.400 Normal 0.0-0.9 [facility] Comment on above: Result Comment: IG% - Immature Granulocytes (promyelocytes, myelocytes and metamyelocytes) > 1% indicates that a LEFT SHIFT is Present. Performed By: #### M 100.240, #### [facility] [address] [place], [address] Lymphocytes/100 WBC (Bld) 3.8 % Low 19-41 [facility] Comment on above: Performed By: #### M 100.2399, #### [facility] [address] [place], [address] MCH (RBC) [Entitic mass] 31.3 pg Normal 27.0-32.0 [facility] Comment on above: Performed By: #### M 100.240, #### [facility] [address] [place], [address] MCHC (RBC) [Mass/Vol] 34.0 g/dL Normal 32-36 [facility] Comment on above: Performed By: #### M 100, #### [facility] [address] [place], [address] MCV (RBC) [Entitic vol] 92.3 fL Normal 80-94 [facility] Comment on above: Performed By: #### M 100.2399, #### [facility] [address] [place], [address] Monocytes/100 WBC (Bld) 6.9 % Normal 0-10 [facility] Comment on above: Performed By: #### M 100.240, #### [facility] [address] [place], [address] Neutrophils/100 WBC (Bld) 88.4 % High 47-70 [facility] Comment on above: Performed By: #### M 100.2399, #### [facility] [address] [place], [address] Nucleated RBC (Bld) [#/Vol] 0 10*3/uL Normal 0-5 [facility] Comment on above: Performed By: #### M 100.2400, #### [facility] [address] [place], [address] Platelet mean volume (Bld) [Entitic vol] 8.9 fL Normal 6.2-12.0 [facility] Comment on above: Performed By: #### M 100.240, #### [facility] [address] [place], [address] Platelets (Bld) [#/Vol] 319 10*3/uL Normal 150-450 [facility] Comment on above: Performed By: #### M , #### [facility] [address] [place], [address] RBC (Bld) [#/Vol] 5.04 10*6/uL Normal 4.6-6.2 [facility] Comment on above: Performed By: #### M .240, #### [facility] [address] [place], [address] RDW SD 41.3 fl Normal 35.1-43.9 [facility] Comment on above: Performed By: #### M 100.240, #### [facility] [address] [place], [address] WBC (Bld) [#/Vol] 20.1 10*3/uL High 4.4-11.0 [facility] Comment on above: Performed By: #### M 100.240, #### [facility] [address] [place], [address] CTA Chest W/WO Contraston CTA Chest W/WO Contrast [facility] Imaging Services [address] [place] [address] CTA Chest W/WO Contrast MR#: [id number] Acct: [id number] Name: KARLI DUKE Rep #: [id number] : 1965 M 58 From: Chris Long MD PCP: Dr. Alberto Avelar MD Status: REG ER Study: CTA Chest W/WO Contrast Date of Exam: 07/20/24 Exam# [id number] Ordering Dr: Willard Burr DO :[id number] STUDY: CTA CHEST REASON FOR EXAM: Male, 58 years old. Cough, dyspnea, Pulmonary embolism RADIATION DOSAGE (If Supplied By Facility): CTDIvol = ( 12.66 ) mGy, DLP = ( 400.93 ) mGycm TECHNIQUE: The examination was performed with the intravenous administration of IV 100mL Isovue-370. Post-processing of the angiographic images was performed, with multiplanar reformation and 3D reconstruction. Individualized dose optimization techniques were used for this CT. COMPARISON: Chest x-ray FINDINGS: Normal enhancement of the main pulmonary artery and right and left pulmonary arteries. Normal enhancement of the bilateral peripheral pulmonary arteries. There is no demonstrated pulmonary embolism. Normal thoracic aorta and visualized great vessels. There is no demonstrated aortic dissection. There are calcifications of the coronary arteries. Normal mediastinum. Normal hilar regions. Normal visualized trachea and bronchi. The lungs are well expanded. There is emphysema of the lungs with mild fibrotic densities. There is moderate patchy right middle and lower lobe and left lingular airspace consolidation. Normal pleura. Normal chest wall structures. There is degenerative change of the spine. Normal visualized upper abdomen. CT/CTA Chest W/WO Contrast IMPRESSION: CTA chest examination, without a demonstrated pulmonary embolism or arterial dissection. Emphysema. Bilateral pneumonia. Electronically Signed: Chris Long MD at 12:31 EST , CC: Dr. Willard Burr DO; Dr. Alberto Avelar MD Laboratory Helper: Signed Normal [facility] [facility] Chest 1 View (Portable)on Chest 1 View (Portable) [facility] Imaging Services [address] [place], [place] [address] Chest 1 View (Portable) MR#: [id number] Acct: [id number] Name: KARLI DUKE Rep #: [id number] : 1965 M 58 From: Chris Long MD PCP: Dr. Alberto Avelar MD Status: REG ER Study: Chest 1 View (Portable) Date of Exam: 07/20/24 Exam# [id number] Ordering Dr: Willard Burr DO :[id number] STUDY: X-RAY CHEST REASON FOR EXAM: Male, 58 years old. Cough dyspnea TECHNIQUE: Single AP portable view of the chest. COMPARISON: August 25, 2019 FINDINGS: There are monitoring and support devices. There are emphysematous changes of the lungs. There are mild lower lung interstitial increased opacities. There is small right pleural effusion. Normal size heart. Normal mediastinum and albert. Normal visualized pulmonary arteries. Normal visualized aortic arch and descending thoracic aorta. Normal visualized thoracic spine. Normal visualized ribs, clavicles, and shoulders. There is no demonstrated abnormality of the visualized soft tissue structures of the upper abdomen. RAD/Chest 1 View (Portable) IMPRESSION: COPD with lower lung edema or infiltrate. Small right pleural effusion Electronically Signed: Chris Long MD at 10:51 EST Reading Location ID and State: [id number] [facility] , Service support , CC: Dr. Willard Burr DO; Dr. Alberto Avelar MD Laboratory Helper: Signed Normal [facility] Emergency Department Summary on 07-20-2024 Emergency Department Summary [facility] Medical Records Department [address] [place] [address] Emergency Department Summary 07/20/24 MR#: [id number] Acct: [id number] Name: KARLI DUKE Rep #: [id number] : 1965 58 From: Willard Burr DO PCP: Dr. Alberto Avelar MD Status:ADM IN [facility] H[facility] History of Present Illness Chief Complaint: Shortness of Breath Informant: patient and spouse/S.O. Narrative Narrative: 58-year-old male history of COPD on home oxygen presenting to the emergency room with cough and shortness of breath. Patient states for about 4 weeks he has been sick. He states it is hard for him to catch his breath and he feels like his lung is collapsed like it did in 2019. He states that he is coughing up phlegm. States about 4 weeks ago he was placed on an antibiotic and did a tapering dose of prednisone. He is unsure what the antibiotics name was. He denies any fever. He states that he has not gotten any better and can only walk minimally without having to rest. Nothing specifically is different today as compared to last week he is just not getting any sleep at night. He states he has been on BiPAP before and does not like it. [facility] Medical History Anxiety COPD (chronic obstructive pulmonary disease) Home Medications ???Medication ???Instructions ???Recorded ???Last Taken ???Type aspirin 325 mg tablet 325 mg PO DAILY heart health 06/30/15 07/20/24 10:00 History 325 mg albuterol sulfate 90 mcg/actuation 1 puff inhalation Q6H PRN PRN Cough 01/05/16 07/20/24 08:00 History aerosol inhaler (Ventolin HFA) 1 puff diphenhydramine HCl 25 mg tablet 25 mg PO QHS sleep 01/05/16 07/19/24 23:30 History (Benadryl Allergy) 25 mg fluticasone fur. 100 mcg-umeclid 1 ea IH DAILY lungs 08/25/19 07/20/24 10:00 History 62.5 mcg-vilant 25 mcg 1 ea inhalat.powder guaifenesin 1,200 mg tablet, 1,200 mg PO BID thins secretions 08/25/19 07/20/24 10:00 History extended release 12 hr 1,200 mg multivitamin 1 ea PO DAILY supplement 08/25/19 07/20/24 10:00 History 1 ea mv-min-vit P-qsiw-caqvhy nereida-herb 1 ea PO DAILY supplement 08/25/19 07/20/24 10:00 History #124 250 mg-12.5 mg chewable tablet 1 ea nicotine (polacrilex) 2 mg buccal 2 mg BC DAILY PRN nicotine cravings 08/25/19 07/20/24 10:00 History lozenge 2 mg omeprazole 40 mg capsule,delayed 40 mg PO DAILY GERD 08/25/19 07/20/24 10:00 History release 40 mg lorazepam 1 mg tablet 1 mg PO Q8H PRN PRN Anxiety #14 08/29/19 07/19/24 08:00 Rx tabs 1 mg buspirone 10 mg tablet 10 mg PO TID anxiety 07/20/24 07/20/24 10:00 History 10 mg montelukast 10 mg tablet 10 mg PO QHS Pulmonary 07/20/24 07/19/24 22:00 History 10 mg Allergy/AdvReac Type Severity Reaction Status Date / Time codeine Allergy Unknown Verified 07/20/24 09:42 Penicillins Allergy Unknown Verified 07/20/24 09:42 Social History Smoking Status: Former smoker ROS ROS ED Constitutional Constitutional ED: Denies chills, fever(s) or weight loss Eyes Eyes: Denies change in vision or diplopia ENT ENT ED: Denies ear pain, rhinorrhea or sore throat Cardiovascular Cardiovascular: Denies chest pain, orthopnea, palpitations or racing heartbeat Respiratory/Chest Respiratory/Chest: Reports cough, dyspnea, dyspnea on exertion and sputum; Denies orthopnea Gastrointestinal Gastrointestinal: Denies abdominal pain, diarrhea, nausea or vomiting Genitourinary Genitourinary ED: Denies dysuria, hematuria or urinary frequency Musculoskeletal Musculoskeletal: Denies arthralgias or myalgias Integumentary Denies abscess or rash Neurologic Neurologic: Denies headache(s) or weakness Psychiatric Psychiatric: Reports anxiety; Denies depression, suicidal ideation or suicidal thoughts Endocrine Endocrinology: Denies polydipsia, polyphagia or polyuria Allergic/Immunologic Allergic/Immunologic ED: Denies mouth swelling, tongue swelling or urticaria EXAM Physical Exam Const Vital Signs: 07/20/24 09:42 07/20/24 09:44 07/20/24 09:44 Temperature 98.9 F 98.2 F Temperature Source Oral Oral Pulse Rate 108 H 100 Respiratory Rate 26 H 18 Respiratory Effort Short of Breath Labored Respiratory Pattern Tachypnea Blood Pressure 196/102 H 169/100 H Blood Pressure Mean 133 123 Pulse Ox 94 97 Oxygen Delivery Method Room Air Oxygen Flow Rate (L/min) 07/20/24 10:38 07/20/24 10:38 07/20/24 10:41 Temperature Temperature Source Pulse Rate 98 98 Respiratory Rate 18 24 H Respiratory Effort Respiratory Pattern Blood Pressure 168/91 H Blood Pressure Mean 116 Pulse Ox 98 99 Oxygen Delivery Method Nasal Cannula Nasal Cannula Oxygen Natty (more content not included)... Normal [facility] H AND P Exam - Hospitaliston 07-20-2024 H&P Exam - Hospitalist [facility] Medical Records Department [address] [place] [address] H P Exam - Hospitalist 07/20/24 1329 MR#: [id number] Acct: [id number] Name: KARLI DUKE Rep #: [id number] : 1965 58 From: Colton Gandhi MD PCP: Dr. Alberto Avelar MD Status:REG ER Location: ED HPI - General General Date of Admission: 07/20/24 Date of Service: 07/20/24 Chief Complaint: Progress worsening shortness of breath, productive cough for 4 weeks HPI Narrative KARLI DUKE, is a 58 M came to ED for shortness of breath, worsening dyspnea on exertion, productive cough for 4 weeks. He was prescribed antibiotic probably Zithromax and tapering dose of prednisone by PCP about 4 weeks ago. He follows icu staff nurse Dr. Millie sánchez, [facility]. He states for the last 4 weeks he is not feeling better with progressive worsening of shortness of breath and dyspnea on exertion. He used to get short of breath from from bedroom to garage now he cannot walk 10 feet without shortness of breath or stopping to catch breath. Denies fever or chills. Severe cough with thick greenish-yellow sputum. Denies any recent diagnosed viral illness. He states he had lung collapse in 2019 and he is on home O2, 2.5 Liters continuously since 2014. Chest x-ray and CTA chest individually reviewed and discussion assessment and plan. Vitals reviewed shows mild tachypnea and sinus tachycardia. [facility] Medical History Anxiety COPD (chronic obstructive pulmonary disease) Home Medications ???Medication ???Instructions ???Recorded ???Last Taken ???Type aspirin 325 mg tablet 325 mg PO DAILY heart health 06/30/15 Unknown History albuterol sulfate 90 mcg/actuation 1 puff inhalation Q6H PRN PRN Cough 01/05/16 Unknown History aerosol inhaler (Ventolin HFA) diphenhydramine HCl 25 mg tablet 25 mg PO QHS sleep 01/05/16 Unknown History (Benadryl Allergy) fluticasone fur. 100 mcg-umeclid 1 ea IH DAILY lungs 08/25/19 Unknown History 62.5 mcg-vilant 25 mcg inhalat.powder guaifenesin 1,200 mg tablet, 1,200 mg PO BID thins secretions 08/25/19 Unknown History extended release 12 hr multivitamin 1 ea PO DAILY supplement 08/25/19 Unknown History mv-min-vit J-betv-xggaod nereida-herb 1 ea PO DAILY supplement 08/25/19 Unknown History #124 250 mg-12.5 mg chewable tablet nicotine (polacrilex) 2 mg buccal 2 mg BC DAILY PRN nicotine cravings 08/25/19 Unknown History lozenge omeprazole 40 mg capsule,delayed 40 mg PO DAILY GERD 08/25/19 Unknown History release lorazepam 1 mg tablet 1 mg PO Q8H PRN PRN Anxiety #14 08/29/19 Unknown Rx tabs prednisone 10 mg tablet 10 mg PO UD #30 tabs 08/29/19 Unknown Rx Allergy/AdvReac Type Severity Reaction Status Date / Time codeine Allergy Unknown Verified 07/20/24 09:42 Penicillins Allergy Unknown Verified 07/20/24 09:42 Social History Smoking Status: Former smoker ROS ROS Narrative Constitutional: Reports worsening of fatigue and weakness. No fever. HEENT: Reports systems reviewed and no addt'l complaints, except as documented Respiratory/Chest: As described in HPI. Quit smoking in 2019 CVS: No chest pressure or tightness or pain Gastrointestinal: Denies coffee ground emesis, hematemesis or vomiting Genitourinary: Denies burning urination or new urinary tract symptoms Musculoskeletal: Denies acute joint pain or limited range of motion. No acute injury Neurologic: Denies seizure-like symptoms. skin: No ulcer. No rash Endocrinology: Reports systems reviewed and no addt'l complaints, except as documented Hematologic/Lymphatic: Reports systems reviewed and no addt'l complaints, except as documented Rest 14 ROS are negative except as mentioned in HPI Vital Signs Vital Signs Vital Signs: 07/20/24 09:42 07/20/24 09:44 07/20/24 09:44 Temperature 98.9 F 98.2 F Temperature Source Oral Oral Pulse Rate 108 H 100 Respiratory Rate 26 H 18 Respiratory Effort Short of Breath Labored Respiratory Pattern Tachypnea Blood Pressure 196/102 H 169/100 H Blood Pressure Mean 133 123 Pulse Ox 94 97 Oxygen Delivery Method Room Air Oxygen Flow Rate (L/min) 07/20/24 10:38 07/20/24 10:38 07/20/24 10:41 Temperature Temperature Source Pulse Rate 98 98 Respiratory Rate 18 24 H Respiratory Effort Respiratory Pattern Blood Pressure 168/91 H Blood Pressure Mean 116 Pulse Ox 98 99 Oxygen Delivery Method Nasal Cannula Nasal Cannula Oxygen Flow Rate (L/min) 3 3 07/20/24 10:43 07/20/24 10:45 07/20/24 11:00 Temperature 98.2 F Temperature Source Oral Pulse Rate 98 104 H Respiratory Rate 24 H 24 H Respiratory Effort Respiratory Pattern Blood Pressure 168/91 H 162 (more content not included)... Normal [facility] L501.4020on 07-20-2024 TROPONIN-I HS 10 pg/mL Normal 3.0-78.0 [facility] Comment on above: Order Comment: 'TROP ' Serial specimen #1, #2 or #3: 1 Result Comment: Valarie lugo Note: New Test Units and Gender Specific Reference Ranges. For more information see Policy Stat Procedure Garland High Sensitivity Troponin (TNIH) and attachments. Performed By: #### L 500.3400, L500.2500, L501.4020 #### [facility] [address] [place], [address] Lactic Acidon 07-20-2024 Lactate [Moles/Vol] 0.9 mmol/L Normal 0.4-1.9 [facility] Comment on above: Order Comment: Y Performed By: #### M 100.2400, M100.2000 #### [facility] [address] [place], [address] Liver Profileon 07-20-2024 Albumin [Mass/Vol] 3.5 g/dL Normal 3.2-5.0 [facility] Comment on above: Order Comment: 'TROP ' Serial specimen #1, #2 or #3: 1 Performed By: #### L 500.3400, L500.2500, L501.4020 #### [facility] [address] [place], [address] ALK P 92 U/L Normal 45-117 [facility] Comment on above: Order Comment: 'TROP ' Serial specimen #1, #2 or #3: 1 Performed By: #### L 500.3400, L500.2500, L501.4020 #### [facility] [address] [place], [address] ALT [Catalytic activity/Vol] 62 U/L High 16-61 [facility] Comment on above: Order Comment: 'TROP ' Serial specimen #1, #2 or #3: 1 Performed By: #### L 500.3400, L500.2500, L501.4020 #### [facility] [address] [place], [address] AST [Catalytic activity/Vol] 61 U/L High 15-37 [facility] Comment on above: Order Comment: 'TROP ' Serial specimen #1, #2 or #3: 1 Result Comment: Mode rate Hemolysis, Result may be falsely increased. Performed By: #### L 500.3400, L500.2500, L501.4020 #### [facility] [address] [place], [address] Bilirubin [Mass/Vol] 0.80 mg/dL Normal 0.20-1.00 [facility] Comment on above: Order Comment: 'TROP ' Serial specimen #1, #2 or #3: 1 Result Comment: For patients on eltrombopag therapy, use of Dimension [place]land TBIL is not recommended. Performed By: #### L 500.3400, L500.2500, L501.4020 #### [facility] [address] [place], [address] Bilirubin.direct [Mass/Vol] 0.17 mg/dL Normal 0.00-0.30 [facility] Comment on above: Order Comment: 'TROP ' Serial specimen #1, #2 or #3: 1 Performed By: #### L 500.3400, L500.2500, L501.4020 #### [facility] [address] [place], [address] Globulin (S) [Mass/Vol] 4.6 g/dL High 2.2-4.2 [facility] Comment on above: Order Comment: 'TROP ' Serial specimen #1, #2 or #3: 1 Performed By: #### L 500.3400, L500.2500, L501.4020 #### [facility] [address] [place], [address] T PROT 8.1 g/dL Normal 6.4-8.2 [facility] Comment on above: Order Comment: 'TROP ' Serial specimen #1, #2 or #3: 1 Performed By: #### L 500.3400, L500.2500, L501.4020 #### [facility] [address] [place], [address] [facility] 05-27-2024 SURAJ Telephone (ANGELA) SRIKANTHKARLI ([id number]) 1965 M Date Time Provider Department 05/27/24 NATHALIE MOJICA During your visit today, we recorded the following information about you: Nathalie Mojica APRN.CNP 05/27/2024 2:29 PM Signed Spoke with patient and the following results were discussed: CT Chest Results slight increase in JANNET nodule previously 3 mm, now 5 mm Reviewed case with Dr. Ayala Recommendations: 6 month follow up Patient verbalized understanding of the results and had no other questions or concerns at this time. Nathalie Mojica APRN.CNP May 27, 2024 2:27 PM Allergies As of Date: 05/27/2024 Noted Allergy Reaction CODEINE 01/05/2016 16 - Unknown DELETED: environmental [Other] 11/11/2010 14 - Other: See Comments Comments: Molds and grasses as verified by skin testing VICODIN (HYDROCODONE-ACETAMINOPHE* 1 - Mental Status Change Date Reviewed: 05/21/2024 Reviewed by: Nathalie Mojica APRN.CNP - Fully Assessed Reason for Visit: Results [95] Primary Visit Diagnosis:Lung nodules [R91.8] Order(s):CT CHEST WO FRANCOON [1323565] Order #: [id number] FUTURE Prescriptions as of 06/25/2024 - doxycycline (VIBRA-TABS) 100 mg tablet Take 1 tablet by mouth two times a day for 7 days. - predniSONE (DELTASONE) 20 mg tablet Take 2 tablets by mouth once daily for 3 days, THEN 1.5 tablets once daily for 3 days, THEN 1 tablet once daily for 3 days, THEN 0.5 tablets once daily for 3 days. - busPIRone (BUSPAR) 10 mg tablet Take 1 tablet by mouth three times a day. - montelukast (SINGULAIR) 10 mg tablet Take 1 tablet by mouth daily at bedtime. - gxafnvvogzq-vyafuveqt-hrizbo er (TRELEGY ELLIPTA) 200-62.5-25 mcg inhalation powder Inhale 1 Puff as instructed once daily. - pantoprazole DR (PROTONIX) 40 mg tablet take 1 tablet by mouth every day - ascorbic acid, vitamin C, (VITAMIN C) 250 mg tablet Take 250 mg by mouth once daily. - ergocalciferol, vitamin D2, (VITAMIN D2 ORAL) Take by mouth. - Vitamin E, dl, acetate, (VITAMIN E) 134 mg (200 unit) Capsule Take by mouth once daily. - melatonin 10 mg chew Take by mouth. - loratadine 10 mg cap Take 10 mg by mouth once daily. - MULTIVITAMIN ORAL Take by mouth. States contains vitamin b,c,d - albuterol HFA (PROVENTIL HFA, VENTOLIN HFA) 90 mcg/actuation inhaler Inhale 2 Puffs as instructed every 4 hours as needed. NEEDED FOR SHORTNESS OF BREATH AND WHEEZING - aspirin, enteric coated (ASPIR-81) 81 mg EC tablet Take 1 tablet by mouth once daily. Meds Comments as of 04/07/2016: Naproxen Problem List As Of Date 05/27/2024 Noted Resolved Other and unspecified hyperlipidemia [E78.5] 11/11/2010 Asthma [J45.909] 11/11/2010 Injury of right elbow [S59.901A] 12/23/2013 SAH (subarachnoid hemorrhage) (HCC) [I60.9] 01/05/2016 At risk for seizures [Z91.89] 01/05/2016 Acute headache [R51.9] 01/05/2016 Bleeding in brain due to brain aneurysm (HCC) [*01/05/2016 Tinea corporis [B35.4] 01/06/2016 Postoperative state [Z98.890] 01/07/2016 IVH (intraventricular hemorrhage) (HCC) [I61.5] 01/07/2016 Brain aneurysm [I67.1] 01/07/2016 Malnutrition of mild degree (HCC) [E44.1] 01/12/2016 Pulmonary emphysema (HCC) [J43.9] 07/05/2016 Allergic rhinitis due to fungal spores [J30.89] 04/10/2018 Seasonal allergic rhinitis due to pollen [J30.1]04/10/2018 Screening for colon cancer [Z12.11] 04/03/2019 GHASSAN on CPAP [G47.33] 12/30/2021 Encounter Status:Closed by NATHALIE MOJICA on 05/27/24 Normal [facility] CNOVon 05-20-2024 CNOV Office Visit (PULMWS ) KARLI DUKE ([id number]) 1965 M Date Time Provider Department 05/20/24 11:30 AM NATHALIE MOJICA PULMWS During your visit today, we recorded the following information about you: Nathalie Mojica APRN.MALTER OPERATOR 05/21/2024 8:26 AM Signed [facility] INCIDENTAL LUNG NODULE PROGRAM (Follow Up) Impression / Recommendations 1. Lung nodules Previously noted lung nodules are stable, decreased in size and resolved. There are new lung nodules in RLL and JANNET <4 mm, appear to be inflammatory. Plan to follow up CT in 6-12 months. Pending final radiology review. 2. Nicotine Dependence, Former: Continue to abstain from smoking cigarettes. 3. Stage 4 very severe COPD by GOLD classification ([facility]) Continue close follow up with icu staff nurse Dr. Silva Sánchez. Follow Up Follow Up Diagnosis: Lung Nodule Recommendation: CT Scan Follow up Date: 10/31/2024 Follow-Up Scheduled: No Pulmonary Follow-Up Type: Lung Nodule Surveillance Enrolled in Lung Nodule program: Yes Lung Nodule Program Location: [facility] Please enter a follow up date: 10/2024 -------- History of Present Illness Karli Duke is a 58 year old male with a pertinent past medical history significant for Former smoker: (>30 pack-years, 8 years since quit) who is being seen as a follow up for evaluation of a lung nodule(s). Karli Duke initially presented to nodule clinic after they had a CT Chest (scan type) on 04/24/2023 (date) for the indication of Lung nodules. >5 were detected Incidentally. Ground Glass Irregular nodule/s up to 15 mm were noted in the Right upper lobe of the lung. Evaluation to date has included Serial CT Scans covering 3-6 months. The nodule of concern has remained stable to slightly decreased in size and density. Pt is on oxygen. He is in a wheelchair for walking long distances. Respiratory symptoms include: SOB: Yes Chest tightness: No Coughing: Yes: With mucus Clear Hemoptysis: No Wheezing: Yes Fever/Chills: No Recent Respiratory Infection: No Unintentional weight loss: Yes decreased appetite. Last 12 Encounter Wt Readings: Date: Wt: 02/29/2024 69.4 kg (153 lb) 02/29/2024 69.4 kg (153 lb) 08/29/2023 69.9 kg (154 lb) 08/29/2023 69.9 kg (154 lb) 06/14/2023 73 kg (161 lb) 04/11/2023 73.5 kg (162 lb) 03/14/2023 73.9 kg (163 lb) 12/12/2022 75.3 kg (166 lb) 12/12/2022 75.3 kg (166 lb) 12/01/2022 75.2 kg (165 lb 11.2 oz) 11/14/2022 74.8 kg (165 lb) 05/21/2022 73.9 kg (163 lb)] Modified Medical Research [place] Dyspnea Scale (MMRC) I am too breathless to leave the house or I am breathless when dressing 4 Problem List, History, Medications and allergies have been reviewed from the [facility] electronic medical record and any appropriate up-dates have been made. Physical Exam BP (P) 148/86 Pulse (P) 94 Resp (P) 15 SpO2 (P) 98% General Appearance: Well appearing, alert, in no acute distress, well-hydrated, well nourished.. Neck: Supple, no adenopathy; thyroid symmetric, normal size Lungs: Lungs clear to auscultation. No wheezing, rhonchi, rales.. Heart: RRR without murmur, gallop, or rubs. No ectopy. Neurologic: Oriented X 3. Diagnostic Data I have personally visualized, reviewed and analyzed the findings on pulmonary function testing and radiographs. New JANNET New RLL nodule * * *Final Report* * * DATE OF EXAM: Apr 24 2023 12:10PM [facility] 0541 - CT CHEST WO IVCON / PROCEDURE REASON: multiple diagnoses * * * * Physician Interpretation * * * * EXAMINATION: CHEST CT WITHOUT CONTRAST CLINICAL HISTORY: Lung nodule Technique: Spiral CT acquisition of the chest from the thoracic inlet to the upper abdomen without contrast. MQ: CTCWO_6 CT Radiation dose: Integrated Dose-length product (DLP) for this visit = 217 mGy*cm CT Dose Reduction Employed: Automated exposure control(AEC) and iterative recon Comparison: CT chest dated March 16, 2022 RESULT: Limitations: None. Lines, tubes, and devices: None. Lung parenchyma and airways: New ill-defined groundglass opacity in the right apex measuring 1.5 cm. Stable 4 mm right upper lobe pulmonary nodule (6, 45). Stable additional 2 mm right upper lobe nodule (6, 52). Calcified right lower lobe subcentimeter granuloma. Stable 3 mm left lower lobe nodule (6, 125 and 107). New 3 mm left lower lobe nodule (6, 1:30). Additional new 3 mm lingular nodule (6, 154). Pleural space: No pleural effusion. No pleural thickening. Lower neck, lymph nodes, and mediastinum: The imaged thyroid gland is normal. No lymphadenopathy in the supraclavicular, axillary, mediastinal, or hilar regions. Heart, pericardium, and thoracic vessels: The thoracic aorta and main pulmonary artery are norm (more content not included)... Normal [facility] CT CHEST WO IVCONon 05-20-20 CT CHEST WO IVCON * * *Final Report* * * DATE OF EXAM: May 20 2024 11:37AM [facility] 0541 - CT CHEST WO IVCON / PROCEDURE REASON: Lung nodules * * * * Physician Interpretation * * * * EXAMINATION: CHEST CT WITHOUT CONTRAST CLINICAL HISTORY: Follow-up lung nodules Technique: Spiral CT acquisition of the chest from the thoracic inlet to the upper abdomen without contrast. MQ: CTCWO_6 CT Radiation dose: Integrated Dose-length product (DLP) for this visit = 212 mGy*cm CT Dose Reduction Employed: Automated exposure control(AEC) and iterative recon Comparison: CT chest dated 04/24/2023 RESULT: Limitations: None. Lines, tubes, and devices: None. Lung parenchyma and airways: Upper lung zone predominant emphysematous changes. Stable ill-defined groundglass opacity in the right apex measuring approximately 1.5 cm in size (7, 36). A few additional stable scattered pulmonary nodules with congressional representative measurements as follows. Stable 4 mm right anterior upper lobe groundglass nodular opacity (7, 49). Stable 2 to 3 mm right upper lobe nodule (7, 58). Stable 3 mm calcified right lower lobe granuloma. Stable 3 mm left lower lobe nodule (7, 116). Stable 2 to 3 mm left lower lobe nodules (7, 136). A few additional stable less than 5 mm nodules. Slight interval increase in size of an ill-defined nodular opacity in the left upper lobe now measuring 5 mm (7, 64), previously 3 mm. Mild atelectatic changes. Pleural space: No pleural effusion. No pleural thickening. Lower neck, lymph nodes, and mediastinum: The imaged thyroid gland is normal. No lymphadenopathy in the supraclavicular, axillary, mediastinal, or hilar regions. Heart, pericardium, and thoracic vessels: The thoracic aorta and main pulmonary artery are normal in caliber. The cardiac chambers are normal in size. Coronary artery atherosclerotic calcifications are noted, although the study is not optimized for coronary assessment. No pericardial effusion or thickening. Bones and soft tissues: Degenerative changes. Upper abdomen: Hepatic steatosis. Atherosclerotic calcification of the vasculature. No additional abnormality in the imaged upper abdomen within the limits of noncontrast technique. Localizer images: No additional findings. IMPRESSION: 1. Mild emphysema. 2. Slight interval increase in size of an ill-defined now 5 mm left upper lobe nodule. Close attention on follow-up imaging is advised. 3. Remainder of the nodular opacities including a 1.5 cm right upper lobe groundglass opacity appear stable. Laboratory Helper: FABIANA Transcribe Date/Time: May 22 2024 12:58P Dictated by : BIBI BOWER MD This examination was interpreted and the report reviewed and electronically signed by: BIBI BOWER MD on May 22 2024 1:04PM EST [id number] Normal [facility] CNOVon 02-29-2024 CNOV Office Visit (PULMWS ) KARLI DUKE ([id number]) 1965 M Date Time Provider Department 02/29/24 1:45 PM MILLIE SÁNCHEZ PULMWS During your visit today, we recorded the following information about you: Pulse Respiration Blood pressure Weight 84/minute 22/minute 146/96 69.4 kg Yulisa Keith LPN 02/29/2024 1:18 PM Signed Intake information documented in the prior visit with ERICH Bassett today. Millie Sánchez MD 02/29/2024 5:09 PM Signed . Respiratory [place] Note Patient name: Karli Duke PCP: Alberto Avelar MD CC: Follow-up COPD HPI: Karli Duke 58 year old male former 35 pack year smoker, quitting in 2016 with PMH significant for childhood asthma, very severe COPD, chronic hypoxemic respiratory failure, allergies previously on IT, SAH, GHASSAN. On Trelegy Ellipta with as needed albuterol and participating in lung cancer screening. Has declined pulmonary rehab, endobronchial valve assessment and transplant evaluation. Current inhaled therapy with Trelegy Ellipta and as needed albuterol. Main symptoms are dyspnea on exertion. Patient is very limited in his activities of daily living. The heat and humidity has been very problematic for his shortness of breath so he has been staying inside. He does have air conditioning. No current cough, wheezing or sputum production. He has not been ill with any upper respiratory infection nor has he required hospitalization. DME: [employer] 2-3 L DATA: COPD Assessment Test I never cough 0 1 2 3 4 5 I cough all the time; Score 3 I have no phlegm 0 1 2 3 4 5 My chest is completely full of phlegm; Score 3 My chest does not feel tight at all 0 1 2 3 4 5 My chest chest feels very tight; Score 3 When I walk up a hill or one flight of stairs I am not breathless 0 1 2 3 4 5 When I walk up a hill or one flight or stairs I am very breathless; Score 4 I am not limited doing any activities at home 0 1 2 3 4 5 I am very limited doing activities at home; Score 4 I am confident leaving my home despite my lung condition 0 1 2 3 4 5 I am not at all confident leaving my home because of my lung condition; Score 3 I sleep soundly 0 1 2 3 4 5 don't sleep soundly because of my lungs; Score 3 I have lots of energy 0 1 2 3 4 5 I have no energy at all; Score 4 Total Score: 27 PFT 08/2023: Pulmonary function test show very severe obstruction, hyperinflation, air trapping and marked reduction in diffusing capacity Imaging / Diagnostic Studies: DATE OF EXAM: Apr 24 2023 12:10PM [facility] 05[facility] - CT CHEST WO IVCON / IMPRESSION: 1. New ill-defined 1.5 cm groundglass opacity in the right apex. Close attention on follow-up to document stability is advised. 2. Few stable less than 6 mm pulmonary nodules. Couple of new less than 6 mm pulmonary nodules. Review of chest CT shows a new upper lobe groundglass opacity, emphysema and stable pulmonary nodularity PAST MEDICAL HISTORY No date: Allergic rhinitis No date: Asthma No date: COPD (chronic obstructive pulmonary disease) ([facility]) No date: Other and unspecified hyperlipidemia No date: SAH (subarachnoid hemorrhage) ([facility]) No date: Sleep apnea No date: Tobacco abuse Comment: Quit 2016. ALLERGIES Allergen Reactions Codeine Unknown Environmental [Othe* Other: See Comments Molds and grasses as verified by skin testing Vicodin [Hydrocodon* Mental Status Change zrnibvefmtn-pippikrme-nfauit er (TRELEGY ELLIPTA) 200-62.5-25 mcg inhalation powder Inhale 1 Puff as instructed once daily. pantoprazole DR (PROTONIX) 40 mg tablet take 1 tablet by mouth every day busPIRone (BUSPAR) 10 mg tablet take 1 tablet by mouth twice a day montelukast (SINGULAIR) 10 mg tablet take 1 tablet by mouth everyday at bedtime ascorbic acid, vitamin C, (VITAMIN C) 250 mg tablet Take 250 mg by mouth once daily. ergocalciferol, vitamin D2, (VITAMIN D2 ORAL) Take by mouth. Vitamin E, dl, acetate, (VITAMIN E) 134 mg (200 unit) Capsule Take by mouth once daily. melatonin 10 mg chew Take by mouth. loratadine 10 mg cap Take 10 mg by mouth once daily. MULTIVITAMIN ORAL Take by mouth. States contains vitamin b,c,d albuterol HFA (PROVENTIL HFA, VENTOLIN HFA) 90 mcg/actuation inhaler Inhale 2 Puffs as instructed every 4 hours as needed. NEEDED FOR SHORTNESS OF BREATH AND WHEEZING aspirin, enteric coated (ASPIR-81) 81 mg EC tablet Take 1 tablet by mouth once daily. Social History Tobacco Use Smoking status: Former Current packs/day: 0.00 Average packs/day: 1 pack/day for 35.8 years (35.8 ttl pk-yrs) Types: Cigarettes Start date: 1979 Quit date: 09/06/2015 Years since quittin.4 Smokeless tobacco: Current Types: Chew Tobacco comments: No smokers in current home. Vaping Use Vaping status: Never Used Substance Use Topics Alcohol use: Yes Comment: 1 (more content not included)... Normal [facility] OXIMETRY WITH AMBULATIONon 0 02-29-2024 Paul Martinez RPF T 02/29/2024 1:35 PM RESPIRATORY THERAPY OXIMETRY WITH AMBULATION Oximetry with Ambulation Test for This Encounter O2 Device O2 Adapter NC O2 Flow SpO2% HR Activity Ft Walked (ft) Time (min) Avg Speed (MPH) R/A 93 88 Resting R/A 88 91 Walking, usual pace 280 3 1.06 NC 2 97 84 Resting NC 2 97 86 Walking, usual pace 300 3 1.14 General Information Pulse Oximetry Site Total Time Spent Walking Assistance/O2 Supply Carrier R Index Finger 30 Wheeled Walker NAME: ERICH Bassett PATIENT NAME: Karli Duke DATE: February 29, 2024 TIME: 1:34 PM Comment: [facility] No Panel Informationon 08-29 [facility] SPIROMETRY BASELINE ONLYon 0 08-29-2023 DLCO (ml/min/mmHg) 9.66 ml/min/mmHg [facility] DLCO/VA (ml/min/mmHg/L) 2.28 ml/min/mmHg/L [facility] ERV BOX (L) 0.90 L [facility] IGT92-31% PRE (L/S) 0.16 L/S [facility] FEV1 PRE (L) 0.57 L [facility] FEV1/FVC PRE (%) 26 % [facility] FRC Box (L) 5.73 L [facility] FVC PRE (L) 2.21 L [facility] IC BOX (L) 1.42 L [facility] PEF PRE (L/S) 2.40 L/S [facility] RV Box (L) 4.86 L [facility] RV/TLC Box (%) 68 % [facility] TLC Box (L) 7.16 L [facility] VA (L) 4.24 L [facility] VC (L) BOX 2.32 L [facility] CNPNon 05-01-2023 CNPN Telephone ([place]) KARLI DUKE ([id number]) 1965 M Date Time Provider Department 05/01/23 NATHALIE MOJICA During your visit today, we recorded the following information about you: Nathalie Mojica APRN.MALTER OPERATOR 05/01/2023 11:20 AM Signed Left message for pt to call back regarding results. New <6 mm nodules and new 1.5 cm ground glass nodule. Case reviewed with Dr. Salvador. Recommendation [address] Nathalie Mojica APRN.CNP 05/01/2023 12:19 PM Signed Pt notified of results and recommendations. Plan for [address] Pt agrees. Allergies As of Date: 05/01/2023 Noted Allergy Reaction CODEINE 01/05/2016 16 - Unknown environmental [Other] 11/11/2010 14 - Other: See Comments Comments: Molds and grasses as verified by skin testing VICODIN (HYDROCODONE-ACETAMINOPHE* 1 - Mental Status Change Date Reviewed: 04/11/2023 Reviewed by: Yulisa Keith LPN - Fully Assessed Reason for Visit: Results [95] Primary Visit Diagnosis:Lung nodules [R91.8] Order(s):CT CHEST WO IVCON [[id number]] Order #: [id number] FUTURE Prescriptions as of 05/01/2023 - busPIRone (BUSPAR) 10 mg tablet take 1 tablet by mouth twice a day - montelukast (SINGULAIR) 10 mg tablet take 1 tablet by mouth everyday at bedtime - ascorbic acid, vitamin C, (VITAMIN C) 250 mg tablet Take 250 mg by mouth once daily. - ergocalciferol, vitamin D2, (VITAMIN D2 ORAL) Take by mouth. - Vitamin E, dl, acetate, (VITAMIN E) 134 mg (200 unit) Capsule Take by mouth once daily. - melatonin 1 mg tablet Take by mouth. - wlvwricoren-bxzhlupbc-bhognf er (TRELEGY ELLIPTA) 200-62.5-25 mcg inhalation powder Inhale 1 Puff as instructed once daily. - pantoprazole DR (PROTONIX) 40 mg tablet TAKE 1 TABLET BY MOUTH EVERY DAY - loratadine 10 mg cap Take 10 mg by mouth once daily. - MULTIVITAMIN ORAL Take by mouth. States contains vitamin b,c,d - albuterol HFA (PROVENTIL HFA, VENTOLIN HFA) 90 mcg/actuation inhaler Inhale 2 Puffs as instructed every 4 hours as needed. NEEDED FOR SHORTNESS OF BREATH AND WHEEZING - aspirin, enteric coated (ASPIR-81) 81 mg EC tablet Take 1 tablet by mouth once daily. Meds Comments as of 04/07/2016: Naproxen Problem List As Of Date 05/01/2023 Noted Resolved Other and unspecified hyperlipidemia [E78.5] 11/11/2010 Asthma [J45.909] 11/11/2010 Injury of right elbow [S59.901A] 12/23/2013 SAH (subarachnoid hemorrhage) (HCC) [I60.9] 01/05/2016 At risk for seizures [Z91.89] 01/05/2016 Acute headache [R51.9] 01/05/2016 Bleeding in brain due to brain aneurysm (HCC) [*01/05/2016 Tinea corporis [B35.4] 01/06/2016 Postoperative state [Z98.890] 01/07/2016 IVH (intraventricular hemorrhage) (HCC) [I61.5] 01/07/2016 Brain aneurysm [I67.1] 01/07/2016 Malnutrition of mild degree (HCC) [E44.1] 01/12/2016 Pulmonary emphysema (HCC) [J43.9] 07/05/2016 Allergic rhinitis due to fungal spores [J30.89] 04/10/2018 Seasonal allergic rhinitis due to pollen [J30.1]04/10/2018 Screening for colon cancer [Z12.11] 04/03/2019 GHASSAN on CPAP [G47.33] 12/30/2021 Encounter Status:Closed by NATHALIE MOJICA on 05/01/23 Normal [facility] CT CHEST WO IVCONon 04-26-20 Radiology Result ACTIONABLE Abnormal [facility] CT CHEST WO IVCONon 03-16-20 [facility] Vital Signs Date Time Vital Sign Value Performing Clinician Faci litmo 11-18-2024 11:07-0400 Heart rate 61 /min Nathalie Mojica [employer] TEACHER.MALTER OPERATOR Work Phone: [facility] 11-18-2024 11:07-0400 Respiratory rate 19 /min Nathalie Mojica [employer] TEACHER.STACY Work Phone: [facility] 11-18-2024 11:07-0400 SaO2% (BldA) [Mass fraction] 97 % Nathalie Mojica [employer]S TEACHER.MALTER OPERATOR Work Phone: [facility] 08-01-2024 10:04-0500 Body mass index (BMI) [Ratio] 26.67 kg/m2 Alberto Avelar MD Work Phone: [facility] 08-01-2024 10:04-0500 Body weight 68.3 kg Alberto Avelar MD Work Phone: [facility] 08-01-2024 10:04-0500 Diastolic blood pressure 82 mm[Hg] Alberto Avelar MD Work Phone: [facility] 08-01-2024 10:04-0500 Heart rate 96 /min Alberto Avelar MD Work Phone: [facility] 08-01-2024 10:04-0500 Respiratory rate 20 /min Alberto Avelar MD Work Phone: [facility] 08-01-2024 10:04-0500 SaO2% (BldA) [Mass fraction] 94 % Alberto Avelar MD Work Phone: [facility] 08-01-2024 10:04-0500 Systolic blood pressure 150 mm[Hg] Alberto Avelar MD Work Phone: [facility] 07-30-2024 12:44-0500 Diastolic blood pressure 72 mm[Hg] Mily Click [employer] TEACHER.MALTER OPERATOR Work Phone: [facility] 07-30-2024 12:44-0500 Heart rate 85 /min Mily Click [employer] TEACHER.MALTER OPERATOR Work Phone: [facility] 07-30-2024 12:44-0500 Respiratory rate 16 /min Mily Click [employer] TEACHER.MALTER OPERATOR Work Phone: [facility] 07-30-2024 12:44-0500 SaO2% (BldA) [Mass fraction] 95 % Mily Click [employer] TEACHER.MALTER OPERATOR Work Phone: [facility] 07-30-2024 12:44-0500 Systolic blood pressure 122 mm[Hg] Mily Click [employer] IND[employer]S TEACHER.MALTER OPERATOR Work Phone: [facility] 02-29-2024 13:32-0400 Body mass index (BMI) [Ratio] 27.1 kg/m2 Pulm Wstr Work Phone: [facility] 02-29-2024 13:32-0400 Body weight 69.4 kg Pulm Wstr Work Phone: [facility] 02-29-2024 13:32-0400 Heart rate 88 /min Pulm Wstr Work Phone: [facility] 02-29-2024 13:32-0400 Respiratory rate 13 /min Pulm Wstr Work Phone: [facility] 02-29-2024 13:32-0400 SaO2% (BldA) [Mass fraction] 93 % Pulm Wstr Work Phone: [facility] 02-29-2024 13:30-0400 Body mass index (BMI) [Ratio] 27.1 kg/m2 Millie Sánchez MD Work Phone: [facility] 02-29-2024 13:30-0400 Body weight 69.4 kg Millie Sánchez MD Work Phone: [facility] 02-29-2024 13:30-0400 Diastolic blood pressure 96 mm[Hg] Millie Sánchez MD Work Phone: [facility] 02-29-2024 13:30-0400 Heart rate 84 /min Millie Sánchez MD Work Phone: [facility] 02-29-2024 13:30-0400 Respiratory rate 22 /min Millie Sánchez MD Work Phone: [facility] 02-29-2024 13:30-0400 SaO2% (BldA) [Mass fraction] 97 % Millie Sánchez MD Work Phone: [facility] 02-29-2024 13:30-0400 Systolic blood pressure 146 mm[Hg] Millie Sánchez MD Work Phone: [facility] 08-29-2023 13:14-0500 Body height 160 cm Helen Russ PA-C Work Phone: [facility] 08-29-2023 13:14-0500 Body temperature 99.1 [degF] Helen Russ PA-C Work Phone: [facility] 08-29-2023 13:14-0500 Body weight 69.85 kg Helen Russ PA-C Work Phone: [facility] 08-29-2023 13:14-0500 Diastolic blood pressure 90 mm[Hg] Helen Russ PA-C Work Phone: [facility] 08-29-2023 13:14-0500 Heart rate 80 /min Helen Russ PA-C Work Phone: [facility] 08-29-2023 13:14-0500 Respiratory rate 14 /min Helen Russ PA-C Work Phone: [facility] 08-29-2023 13:14-0500 SaO2% (BldA) [Mass fraction] 95 % Helen Russ PA-C Work Phone: [facility] 08-29-2023 13:14-0500 Systolic blood pressure 138 mm[Hg] Helen Russ PA-C Work Phone: [facility] 08-29-2023 13:12-0500 Body height 160 cm Pulm Wstr Work Phone: [facility] 08-29-2023 13:12-0500 Body weight 69.85 kg Pulm Wstr Work Phone: [facility] 08-29-2023 13:12-0500 Heart rate 80 /min Pulm Wstr Work Phone: [facility] 08-29-2023 13:12-0500 Respiratory rate 14 /min Pulm Wstr Work Phone: [facility] 08-29-2023 13:12-0500 SaO2% (BldA) [Mass fraction] 95 % Pulm Wstr Work Phone: [facility] 06-14-2023 13:21-0500 Body weight 73.03 kg Helen Russ PA-C Work Phone: [facility] 06-14-2023 13:21-0500 Diastolic blood pressure 84 mm[Hg] Helen Russ PA-C Work Phone: [facility] 06-14-2023 13:21-0500 Heart rate 66 /min Helen Russ PA-C Work Phone: [facility] 06-14-2023 13:21-0500 Respiratory rate 15 /min Helen Russ PA-C Work Phone: [facility] 06-14-2023 13:21-0500 SaO2% (BldA) [Mass fraction] 99 % Helen Russ PA-C Work Phone: [facility] 06-14-2023 13:21-0500 Systolic blood pressure 132 mm[Hg] Helen Russ PA-C Work Phone: [facility] 03-14-2023 14:31-0400 Body weight 73.94 kg Millie Sánchez MD Work Phone: [facility] 03-14-2023 14:31-0400 Diastolic blood pressure 90 mm[Hg] Millie Sánchez MD Work Phone: [facility] 03-14-2023 14:31-0400 Heart rate 93 /min Millie Sánchez MD Work Phone: [facility] 03-14-2023 14:31-0400 SaO2% (BldA) [Mass fraction] 95 % Millie Sánchez MD Work Phone: [facility] 03-14-2023 14:31-0400 Systolic blood pressure 130 mm[Hg] Millie Sánchez MD Work Phone: [facility] 12-01-2022 13:46-0400 Body weight 75.16 kg Alberto Avelar MD Work Phone: [facility] 12-01-2022 13:46-0400 Diastolic blood pressure 80 mm[Hg] Alberto Avelar MD Work Phone: [facility] 12-01-2022 13:46-0400 Heart rate 84 /min Alberto Avelar MD Work Phone: [facility] 12-01-2022 13:46-0400 Respiratory rate 20 /min Alberto Avelar MD Work Phone: [facility] 12-01-2022 13:46-0400 SaO2% (BldA) [Mass fraction] 95 % Alberto Avelar MD Work Phone: [facility] 12-01-2022 13:46-0400 Systolic blood pressure 130 mm[Hg] Alberto Avelar MD Work Phone: [facility] 11-14-2022 13:00-0400 Body weight 74.84 kg Helen Nweman PA-C Work Phone: [facility] 05-21-2022 14:00-0500 Body temperature 97.81 [degF] Nigel Nitin [employer]S TEACHER.MALTER OPERATOR Work Phone: [facility] 05-21-2022 14:00-0500 Body weight 73.94 kg Nigel Nitin [employer] IND[employer]AL ARTS TEACHER.MALTER OPERATOR Work Phone: [facility] 05-21-2022 14:00-0500 Diastolic blood pressure 80 mm[Hg] Nigel Nitin [employer] IND[employer]AL ARTS TEACHER.MALTER OPERATOR Work Phone: [facility] 05-21-2022 14:00-0500 Heart rate 82 /min Nigel Nitin [employer]AL ARTS TEACHER.MALTER OPERATOR Work Phone: [facility] 05-21-2022 14:00-0500 Respiratory rate 18 /min Nigel Nitin [employer] IND[employer]RIAL ARTS TEACHER.MALTER OPERATOR Work Phone: [facility] 05-21-2022 14:00-0500 SaO2% (BldA) [Mass fraction] 95 % Nigel Nitin [employer] IND[employer]AL ARTS TEACHER.MALTER OPERATOR Work Phone: [facility] 05-21-2022 14:00-0500 Systolic blood pressure 122 mm[Hg] Nigel Nitin [employer] IND[employer]RIAL ARTS TEACHER.MALTER OPERATOR Work Phone: [facility] 03-04-2022 11:23-0400 Body height 160 cm Millie Sánchez MD Work Phone: [facility] 03-04-2022 11:23-0400 Body weight 73.94 kg Millie Sánchez MD Work Phone: [facility] 03-04-2022 11:23-0400 Diastolic blood pressure 84 mm[Hg] Millie Sánchez MD Work Phone: [facility] 03-04-2022 11:23-0400 Heart rate 82 /min Millie Sánchez MD Work Phone: [facility] 03-04-2022 11:23-0400 Respiratory rate 14 /min Millie Sánchez MD Work Phone: [facility] 03-04-2022 11:23-0400 SaO2% (BldA) [Mass fraction] 96 % Millie Sánchez MD Work Phone: [facility] 03-04-2022 11:23-0400 Systolic blood pressure 134 mm[Hg] Millie Sánchez MD Work Phone: [facility] 03-04-2022 11:22-0400 Body height 160 cm Respiratory Wstr Work Phone: [facility] 03-04-2022 11:22-0400 Body weight 73.94 kg Respiratory Wstr Work Phone: [facility] Encounters Encounter Date Encounter Type Care Provider Facility Start: 02-18-2025 End: 02-19-2025 ambulatory Gurmeet Tao APRN.MALTER OPERATOR Work Phone: [facility] Comment on above: Anxiety Start: 01-28-2025 End: 01-28-2025 ambulatory Alberto Avelar MD Work Phone: [facility] Comment on above: Water pill Start: 01-21-2025 End: 01-21-2025 ambulatory Mily Tapia APRN.MALTER OPERATOR Work Phone: Pulmonary Medicine Comment on above: Trilogy Ellipta 200 mcg Start: 01-21-2025 End: 01-21-2025 Refill Millie Sánchez MD Work Phone: [facility] Medicine Comment on above: Refill Request Start: 01-17-2025 End: 01-21-2025 Refill Helen Newman PA-C Work Phone: Pulmonary Medicine Comment on above: Refill Request Start: 01-15-2025 End: 01-15-2025 Refill Alberto Avelar MD Work Phone: [facility] Comment on above: Refill Request Start: 01-07-2025 End: 01-07-2025 ambulatory Mily Tapia [employer] TEACHER.MALTER OPERATOR Work Phone: Pulmonary Medicine Comment on above: and Stepson may be sick Start: 11-28-2024 End: 11-28-2024 Follow-up encounter Nathalie Mojica APRN.MALTER OPERATOR Work Phone: Pulmonary Medicine Start: 11-27-2024 End: 11-27-2024 Refill Karina Gustafson [employer] ARTS TEACHER.MALTER OPERATOR Work Phone: Pulmonology [facility] Comment on above: Refill Request Start: 11-21-2024 End: 11-29-2024 Refill Helen Newman PA-C Work Phone: Pulmonary Medicine Comment on above: Refill Request Start: 11-18-2024 End: 11-18-2024 Patient encounter procedure Nathalie Mojica APRN.MALTER OPERATOR Work Phone: Pulmonary Medicine Comment on above: Lung nodules (Primar y Dx); Former cigarette smoker; Stage 4 very severe COPD by GOLD classification (HCC) Start: 11-18-2024 End: 11-18-2024 ambulatory NATHALIE MOJICA Facility:[facility] Start: 11-18-2024 End: 11-18-2024 Subsequent hospital visit by physician [facility] (I-Stat) Work Phone: Cat Scan Comment on above: Lung nodules [R91.8] Start: 11-17-2024 End: 11-17-2024 ambulatory Liv Malave RN NURSE CLEAN ENERGY POLICY ANALYST Comment on above: Difficulty Breathing Start: 11-01-2024 End: 11-01-2024 ambulatory Gurmeet Tao APRN.CNP Work Phone: [facility] Comment on above: Sleeping difficulty (Primary Dx); Anxiousness; Stage 4 very severe COPD by GOLD classification (HCC) Start: 11-01-2024 End: 11-01-2024 Telemedicine consultation with patient Gurmeet Coburnosmin LIND.MALTER OPERATOR Work Phone: [facility] Start: 10-28-2024 End: 10-28-2024 Telephone encounter Dian Villarreal Maintenance Service Dispatcher [facility] Comment on above: Appointment (Pulmona ry Rehab Eval) Start: 10-21-2024 End: 10-21-2024 Telephone encounter Dian Villarreal Maintenance Service Dispatcher [facility] Comment on above: Appointment (Pulmona ry Rehab Eval) Start: 10-18-2024 End: 10-18-2024 Telemedicine consultation with patient Mily Tapia APRN.CNP Work Phone: Pulmonary Medicine Start: 10-18-2024 End: 10-18-2024 ambulatory Mily Tapia APRN.MALTER OPERATOR Work Phone: Pulmonary Medicine Comment on above: Stage 4 very severe COPD by GOLD classification (HCC) (Primary Dx); Chronic hypoxemic respiratory failure (HCC) COPD, severe (HCC) ( Primary Dx) Start: 10-11-2024 End: 10-14-2024 ambulatory Mily Tapia APRN.MALTER OPERATOR Work Phone: Pulmonary Medicine Start: 10-11-2024 End: 10-14-2024 Patient encounter procedure Mily Tapia APRN.MALTER OPERATOR Work Phone: Pulmonary Medicine Comment on above: I have an appointmen t on 18 October. Start: 08-26-2024 End: 08-29-2024 ambulatory Mily Tapia APRN.MALTER OPERATOR Work Phone: Pulmonary Medicine Comment on above: Reschedule Start: 08-05-2024 End: 08-06-2024 ambulatory Alberto Avelar MD Work Phone: [facility] [place] Comment on above: Water pills Start: 08-01-2024 End: 08-01-2024 E-mail encounter from caregiver Gurmeet Tao DIOGO.MALTER OPERATOR Work Phone: Family Medicine [place] Start: 08-01-2024 End: 08-01-2024 ambulatory Gurmeet Tao APRN.MALTER OPERATOR Work Phone: [facility] [place] Comment on above: Labs Start: 08-01-2024 End: 08-01-2024 Patient encounter procedure Alberto Avelar MD Work Phone: [facility] [place] Comment on above: Hospital discharge f ollow-up (Primary Dx); COPD with exacerbation (HCC); Bacterial pneumonia; JOSEPH (generalized anxiety disorder); Sleeping difficulty Start: 07-30-2024 End: 07-30-2024 ambulatory MILY TAPIA Facility:[facility] Start: 07-30-2024 End: 07-30-2024 Subsequent hospital visit by physician Randell [facility] [place] Sol[place] Work Phone: Radiology Comment on above: Pneumonia of both lo wer lobes due to infectious organism [J18.9] Start: 07-30-2024 End: 07-30-2024 Office outpatient visit 25 minutes Mily Tapia APRN.MALTER OPERATOR Work Phone: Pulmonary Medicine Comment on above: Hospital discharge f ollow-up (Primary Dx); Pneumonia of both lower lobes due to infectious organism; Stage 4 very severe COPD by GOLD classification (HCC); Dependence on continuous supplemental oxygen Start: 07-30-2024 End: 07-30-2024 ambulatory GURMEET TAO Facility:[facility] Start: 07-23-2024 End: 07-23-2024 ambulatory Millie Sánchez MD Work Phone: Pulmonary Medicine Comment on above: It hospitalized over the weekend with pneumonia I was hospitalized w ith pneumonia over the weekend Transition Of Care Start: 07-20-2024 ambulatory [facility] Facility: [facility] Start: 07-20-2024 End: 07-22-2024 Evaluation and management of inpatient [facility] Facility:[facility] Start: 07-01-2024 End: 07-02-2024 ambulatory Millie Sánchez MD Work Phone: Pulmonary Medicine Comment on above: Mobility chair Start: 06-21-2024 End: 06-21-2024 ambulatory Helen Newman PA-C Work Phone: Pulmonary Medicine Comment on above: Antibiotic antibioti cs Start: 06-20-2024 End: 06-21-2024 ambulatory Gurmeet Aislinn [employer] TEACHER.MALTER OPERATOR Work Phone: [facility] Comment on above: Antibiotic Start: 06-18-2024 End: 06-18-2024 ambulatory GURMEET TAO Facility:[facility] Start: 06-18-2024 End: 06-18-2024 [facility] Gurmeet Aislinn [employer] TEACHER.MALTER OPERATOR Work Phone: [facility] Comment on above: Anxiousness (Primary Dx); Stage 4 very severe COPD by GOLD classification ([facility]); Screening for prostate cancer; Screening for lipid disorders; Screening for diabetes mellitus Start: 06-17-2024 End: 06-17-2024 Refill Shalini Jacobo APRN.MALTER OPERATOR Work Phone: [facility] Comment on above: Refill Request; Medi cation Problem (Patient has been out of Buspirone since last week) Formally request Start: 06-15-2024 End: 06-17-2024 Get Medical Advice Helen Newman PA-C Work Phone: Pulmonary Medicine Comment on above: Need refill Start: 05-27-2024 End: 05-27-2024 Telephone encounter Nathalie Mojica APRN.MALTER OPERATOR Work Phone: Pulmonary Medicine Comment on above: Results Start: 05-20-2024 End: 05-20-2024 Patient encounter procedure Nathalie Mojica APRN.CNP Work Phone: Pulmonary Medicine Comment on above: Lung nodules (Primar y Dx); Former cigarette smoker; Stage 4 very severe COPD by GOLD classification ([facility]) Start: 05-20-2024 End: 05-20-2024 ambulatory [facility] Facility:[facility] Start: 05-20-2024 End: 05-20-2024 Subsequent hospital visit by physician [facility] ([facility]) Work Phone: Cat Scan Comment on above: Lung nodules [R91.8] Start: 05-15-2024 End: 05-15-2024 ambulatory Millie Sánchez MD Work Phone: Pulmonary Medicine Comment on above: Need three Month pre scriptions Start: 05-15-2024 End: 05-15-2024 Refill Shalini Jacobo [employer] TEACHER.MALTER OPERATOR Work Phone: Family Medicine [place] Comment on above: Med Change Request Start: 04-10-2024 End: 04-10-2024 Refill Gurmeet Tao [employer] TEACHER.MALTER OPERATOR Work Phone: Family Medicine [place] Comment on above: Refill Request Start: 02-29-2024 End: 02-29-2024 ambulatory [facility] Work Phone: [facility] Comment on above: Spirometry Start: 02-29-2024 End: 02-29-2024 Patient encounter procedure [facility] Work Phone: [facility] Comment on above: Stage 4 very severe COPD by GOLD classification (HCC) (Primary Dx); Dependence on continuous supplemental oxygen; Former cigarette smoker Start: 01-28-2024 Get Medical Advice Mechelle Sánchez MD Work Phone: Pulmonary Medicine Comment on above: Refill my prescripti on of trilogy Start: 01-28-2024 Refill Helen Aparicio PA-C Work Phone: Pulmonary Medicine Comment on above: Refill Request Start: 12-02-2023 Refill Karina Gustafson [employer] TEACHER.MALTER OPERATOR Work Phone: Pulmonary Medicine Comment on above: Refill Request Start: 10-20-2023 ambulatory Millie Sánchez MD Work Phone: Pulmonary Medicine Comment on above: Long-term disability Start: 08-29-2023 End: 08-29-2023 Office outpatient visit 15 minutes Helen Newman PA-C Work Phone: Pulmonary Medicine Comment on above: Stage 4 very severe COPD by GOLD classification (HCC) (Primary Dx); Former cigarette smoker; Chronic hypoxemic respiratory failure (HCC); Chronic sinusitis, unspecified location; GHASSAN (obstructive sleep apnea) Start: 08-29-2023 End: 08-29-2023 ambulatory [facility] Work Phone: [facility]UL[facility] LAB [facility] Comment on above: Spirometry Start: 08-29-2023 End: 08-29-2023 Patient encounter procedure Pulm Lab [facility] Work Phone: [place] [facility] Start: 06-15-2023 ambulatory Helen Aparicio PA-C Work Phone: Pulmonary Medicine Comment on above: More paperwork Start: 06-14-2023 End: 06-14-2023 Office outpatient visit 15 minutes Helen Newman PA-C Work Phone: Pulmonary Medicine Comment on above: Stage 4 very severe COPD by GOLD classification (HCC) (Primary Dx); Former cigarette smoker; Chronic hypoxemic respiratory failure (HCC); Lung nodules Start: 05-01-2023 Telephone encounter Nathalie mcconnell APRN.CNP Work Phone: [facility] Pulmonary Comment on above: Results Start: 04-27-2023 ambulatory Helen Aparicio PA-C Work Phone: Pulmonary Medicine Comment on above: Matrix Start: 04-27-2023 Telephone encounter Millie Sánchez MD Work Phone: Pulmonary Medicine Comment on above: Patient Update Start: 04-26-2023 Telephone encounter Helen Newman PA-C Work Phone: General Surgery Comment on above: 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) Start: 04-24-2023 End: 04-24-2023 Subsequent hospital visit by physician Ct [facility] ([facility]) Work Phone: Cat Scan Comment on above: Lung nodules [R91.8] Start: 04-18-2023 Refill Gurmeet MIRANDA RN.MALTER OPERATOR Work Phone: Family Medicine [place] Comment on above: Refill Request Start: 03-14-2023 End: 03-14-2023 Patient encounter procedure Millie Sánchez MD Work Phone: Pulmonary Medicine Comment on above: Stage 4 very severe COPD by GOLD classification (HCC) (Primary Dx); Chronic hypoxemic respiratory failure (HCC) Start: 03-13-2023 Orders Only Helen Yadav one PA-C Work Phone: Pulmonary Medicine Comment on above: Former cigarette smo ker (Primary Dx) Orders Start: 03-10-2023 ambulatory Helen Yadav one PA-C Work Phone: Pulmonary Medicine Comment on above: Short term, disabili ty Start: 02-22-2023 ambulatory Helen Yadav one PA-C Work Phone: Pulmonary Medicine Comment on above: Disabled parking, id entification, permit, renewal Start: 01-17-2023 Telephone encounter Helen Newman PA-C Work Phone: Pulmonary Medicine Comment on above: Orders Start: 01-13-2023 ambulatory Helen Aparicio PA-C Work Phone: Pulmonary Medicine Comment on above: Prescription Start: 12-04-2022 Refill Helen Aparicio PA-C Work Phone: Pulmonary Medicine Comment on above: Refill Request Start: 12-01-2022 End: 12-01-2022 Patient encounter procedure Alberto Avelar MD Work Phone: [facility] Medicine [place] Comment on above: Pulmonary emphysema, unspecified emphysema type (HCC) (Primary Dx); Stage 4 very severe COPD by GOLD classification ([facility]) Start: 11-26-2022 ambulatory Helen Aparicio PA-C Work Phone: Pulmonary Medicine Comment on above: Question about medic ine Start: 11-25-2022 ambulatory Helen Aparicio PA-C Work Phone: Pulmonary Medicine Comment on above: Electric priority Start: 11-14-2022 ambulatory Gurmeet MIRANDA RN.MALTER OPERATOR Work Phone: Family Medicine [place] Comment on above: Lift chair Start: 11-14-2022 End: 11-14-2022 Patient encounter procedure Helen Juhi Russ PA-C Work Phone: Pulmonary Medicine Comment on above: Stage 4 very severe COPD by GOLD classification (HCC) (Primary Dx); Asthma-COPD overlap syndrome (HCC); History of seasonal allergies; Former cigarette smoker; GHASSAN (obstructive sleep apnea); Dependence on nocturnal oxygen therapy Start: 11-03-2022 ambulatory Helen Aparicio PA-C Work Phone: Pulmonary Medicine Comment on above: Lung infection Start: 07-06-2022 ambulatory Helen Aparicio PA-C Work Phone: Pulmonary Medicine Comment on above: Changed insurance Start: 05-21-2022 End: 05-21-2022 Patient encounter procedure Nigel King DIOGO.MALTER OPERATOR Work Phone: [facility] Comment on above: COPD with exacerbati on (HCC) (Primary Dx) Start: 05-17-2022 ambulatory Helen Aparicio PA-C Work Phone: Pulmonary Medicine Comment on above: Shots Start: 04-27-2022 Chart abstracting Nurse Bao starr [facility] Work Phone: Pulmonary Medicine Start: 04-22-2022 Refill Gurmeet MIRANDA RN.MALTER OPERATOR Work Phone: Family Medicine [place] Comment on above: Refill Request Start: 03-23-2022 ambulatory Millie Sánchez MD Work Phone: Pulmonary Medicine Comment on above: Results Vaccines Start: 03-23-2022 E-mail encounter fro m caregiver Millie Sánchez MD Work Phone: [facility] Start: 03-22-2022 ambulatory Millie Sánchez MD Work Phone: Pulmonary Medicine Comment on above: Question regarding A [facility] Start: 03-16-2022 End: 03-16-2022 Subsequent hospital visit by physician Ct [facility] ([facility]) Work Phone: Cat Scan Comment on above: Stage 4 very severe COPD by GOLD classification (HCC) [J44.9] Start: 03-14-2022 Refill Helen Aparicio PA-C Work Phone: Pulmonary Medicine Comment on above: Refill Request Start: 03-11-2022 ambulatory Millie Sánchez MD Work Phone: Pulmonary Medicine Comment on above: Question regarding E OSINOPHIL ABS COUNT Start: 03-11-2022 Refill Helen Aparicio PA-C Work Phone: Pulmonary Medicine Comment on above: Refill Request Start: 03-04-2022 End: 03-04-2022 ambulatory Respiratory Therapist [facility] Work Phone: Pulmonary Medicine Comment on above: Spirometry Inspire device Start: 03-04-2022 E-mail encounter fro m caregiver Millie S[facility]chez MD [facility] Start: 03-04-2022 End: 03-04-2022 Patient encounter procedure Respiratory Therapist [facility] Work Phone: [facility] Comment on above: Stage 4 very severe COPD by GOLD classification ([facility]) (Primary Dx); Asthma-COPD overlap syndrome (HCC); 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HCC); Former cigarette smoker; History of seasonal allergies Start: 02-25-2022 Chart abstracting Helen ALEJOC Work Phone: Pulmonary Medicine Start: 02-03-2022 End: 02-03-2022 ambulatory Alvaro Dorman APRN.MALTER OPERATOR Work Phone: Neurology Comment on above: Obstructive sleep ap alexander (Primary Dx) Start: 02-03-2022 End: 02-03-2022 Telemedicine consultation with patient Alvaro Dorman APRN.MALTER OPERATOR Work Phone: [place] [phone] Start: 01-06-2022 Telephone encounter Shaun Hernandez MD Work Phone: Neurology Comment on above: Electronic Communica tion Start: 12-30-2021 End: 12-30-2021 ambulatory Shaun Hernandez MD Work Phone: Neurology Comment on above: GHASSAN (obstructive sle ep apnea); GHASSAN on CPAP Start: 12-30-2021 End: 12-30-2021 Telemedicine consultation with patient Shaun Hernandez Jr., MD Work Phone: [facility] Start: 12-15-2021 ambulatory Helen Aparicio PA-C Work Phone: Pulmonary Medicine Comment on above: FMLA paperwork from [facility] Start: 11-25-2021 Chart abstracting Helen conte PA-C Work Phone: Pulmonary Medicine Start: 11-18-2021 ambulatory Helen Aparicio PA-C Work Phone: Pulmonary Medicine Comment on above: CPAP machine Start: 10-22-2021 Refill Helen Aparicio PA-C Work Phone: Pulmonary Medicine Comment on above: Refill Request Procedures Date Procedure Procedure Detail Performing Clinician Start: 07-30-2024 Radiologic exam ches t 2 views Mily Tapia [employer] TEACHER.MALTER OPERATOR Work Phone: Start: 07-30-2024 Lipid 1996 panel - S nati or Plasma Gurmeet Tao [employer] TEACHER.MALTER OPERATOR Work Phone: Start: 02-29-2024 Noninvasive ear/puls e oximetry multiple deter Helen Newman PA-C Work Phone: Start: 08-29-2023 Spmtry w/vc expirato ry natty w/wo mxml vol vntj Helen Newman PA-C Work Phone: Start: 04-24-2023 Ct thorax w/o contra st material Nathalie Mojica [employer] TEACHER.MALTER OPERATOR Work Phone: Start: 03-16-2022 Ct thorax w/o contra st material Millie Sánchez MD Work Phone: Start: 03-04-2022 Spmtry w/vc expirato ry natty w/wo mxml vol vntj Helen Newman PA-C Work Phone: Start: 02-02-2022 Adult depression scr eening assessment Alvaro Dorman APRN.MALTER OPERATOR Work Phone: Start: 12-26-2021 Adult depression scr eening assessment Shaun Hernandez Jr., MD Work Phone: Start: 04-10-2019 Colonoscopy Helen conte PA-C Work Phone: Start: 09-22-2017 Adult depression scr eening assessment Helen Newman PA-C Work Phone: Start: 01-05-2016 Lipid 1996 panel - S nati or Plasma Millie Sánchez MD Work Phone: Plan of Treatment Date Care Activity Detail Author Start: 07-30-2029 Lipid panel Lipid Screening [facility] Start: 07-30-2029 Prostate specific antigen measurement Prostate Cancer Screening Discussion [facility] Start: 04-10-2029 Colonoscopy COLONOSCOPY [facility] Start: 04-10-2029 COLORECTAL CANCER SCREENING COLORECTAL CANCER SCREENING [facility] Start: 04-10-2029 Screening for malign ant neoplasm of colon [facility] Start: 07-30-2027 Diabetes Screening Diabetes Screenin g [facility] Start: 11-18-2025 Screening for malign ant neoplasm of lung Lung Cancer Screening [facility] Start: 11-01-2025 Annual PCP Team Vegetable Picker yi Disease Visit Annual PCP Team Chronic Disease Visit [facility] Start: 08-01-2025 Annual PCP Team Vegetable Picker yi Disease Visit Annual PCP Team Chronic Disease Visit [facility] Start: 06-18-2025 Annual PCP Team Vegetable Picker yi Disease Visit Annual PCP Team Chronic Disease Visit [facility] Start: 05-26-2025 End: 05-26-2025 Patient encounter procedure Cat Scan Comment on above: 6 month-Lung nodules [R91.8 6 month C/m/n Start: 05-20-2025 Screening for malign ant neoplasm of lung Lung Cancer Screening [facility] Start: 03-03-2025 Influenza vaccination Influenza Vacc ine (#1) [facility] Start: 02-20-2025 End: 02-20-2025 Patient encounter procedure Cat Scan Comment on above: [address] 3 month f/u Start: 01-29-2025 End: 04-30-2025 Comprehensive metabolic 2000 panel - Serum or Plasma COMPREHENSIVE METABOLIC PANEL Lab Routine Elevated LFTs Expected: 01/29/2025 (Approximate), Expires: 04/30/2025 [facility] Comment on above: Expected: 01/29/2025 (Approximate), Expires: 04/30/2025 Start: 01-29-2025 End: 04-30-2025 Hemoglobin A1c in Blood HEMOGLOBIN A1C Lab Routine Elevated glucose Expected: 01/29/2025 (Approximate), Expires: 04/30/2025 [facility] Work Phone: Comment on above: Expected: 01/29/2025 (Approximate), Expires: 04/30/2025 Start: 01-29-2025 End: 04-30-2025 Lipid 1996 panel - Serum or Plasma LIPID PANEL BASIC Lab Routine Hyperlipidemia, mixed Expected: 01/29/2025 (Approximate), Expires: 04/30/2025 [facility] Comment on above: Expected: 01/29/2025 (Approximate), Expires: 04/30/2025 Start: 11-18-2024 End: 11-18-2024 Patient encounter procedure Cat Scan Comment on above: 6 month-Lung nodules [R91.8 6 month C/m/n Start: 11-01-2024 End: 11-01-2024 Follow-up encounter 11/01/2024 11:20 AM EDT Merged With [facility] [place] [address] [place], [place] [id number] Gurmeet Tao, [employer] TEACHER.MALTER OPERATOR [address] [place], [place] [id number] 3 month follow up anxiety, COPD, sleep [facility] [place] Comment on above: 3 month follow up an xiety, COPD, sleep Start: 10-30-2024 End: 10-30-2024 Patient encounter procedure 10/30/2024 11:20 AM EDT Office Visit [facility] [place] [address] [place] [address] Shalini Jacobo APRN.MALTER OPERATOR [address] [place] [address] 3 month follow up anxiety, COPD, sleep [facility] [place] Comment on above: 3 month follow up an xiety, COPD, sleep Start: 10-18-2024 End: 10-18-2024 ambulatory 10/18/2024 1:00 PM EDT [facility] Pulmonary Medicine [address] [place] [address] Mily Tapia, [employer] TEACHER.MALTER OPERATOR [address] [place] [address] 6 MTH F/U Pulmonary Medicine Comment on above: 6 MTH F/U Start: 10-18-2024 End: 10-18-2024 Patient encounter procedure 10/18/2024 1:00 PM EDT Office Visit Pulmonary Medicine [address] [place] [address] iMly Tapia, [employer] TEACHER.MALTER OPERATOR [address] [place] [address] 6 MTH F/U Pulmonary Medicine Comment on above: 6 MTH F/U Start: 08-30-2024 End: 08-30-2024 Patient encounter procedure 08/30/2024 1:30 PM EST Office Visit Pulmonary Medicine [address] [place] [address] Mily Tapia, [employer] TEACHER.MALTER OPERATOR [address] [place] [address] 6 MTH F/U Pulmonary Medicine Comment on above: 6 MTH F/U Start: 08-01-2024 End: 08-01-2024 Patient encounter procedure 08/01/2024 10:00 AM EST Office Visit [facility] [place] [address] [place] [address] Alberto Avelar MD [address] [place] [address] [facility] 07/22/24 pnuemonct Family Medicine [place] Comment on above: [facility] Start: 07-30-2024 End: 07-30-2024 Patient encounter procedure Pulmonary Medicine Comment on above: [facility] follow up pnuemonia [facility] 07/22/24 [facility] Start: 06-18-2024 End: 09-17-2024 Comprehensive metabolic 2000 panel - Serum or Plasma COMPREHENSIVE METABOLIC PANEL Lab Routine Screening for diabetes mellitus Expected: 06/18/2024, Expires: 09/17/2024 [facility] Comment on above: Expected: 06/18/2024 , Expires: 09/17/2024 Start: 06-18-2024 End: 09-17-2024 LIPID PANEL, NONFASTING LIPID PANEL, NONFASTING Lab Routine Screening for lipid disorders Expected: 06/18/2024, Expires: 09/17/2024 [facility] Comment on above: Expected: 06/18/2024 , Expires: 09/17/2024 Start: 06-18-2024 End: 09-17-2024 PSA/PROSTATE SPECIFIC ANTIGEN SCREENING PSA/PROSTATE SPECIFIC ANTIGEN SCREENING Lab Routine Screening for prostate cancer Expected: 06/18/2024, Expires: 09/17/2024 [facility] Work Phone: Comment on above: Expected: 06/18/2024 , Expires: 09/17/2024 Start: 06-18-2024 End: 06-18-2024 Patient encounter procedure 06/18/2024 1:40 PM EST Office Visit Family [facility] [place] [address] [place] [address] Gurmeet Tao APRN.MALTER OPERATOR [address] [place], [place] [id number] Yearly exam Family Medicine [place] Comment on above: Yearly exam Start: 05-20-2024 End: 05-20-2024 Patient encounter procedure Cat Scan Comment on above: Lung nodules [R91.8] Lung screening Start: 04-24-2024 Influenza vaccination Lung Cancer [facility] Start: 04-24-2024 Screening for malign ant neoplasm of lung Lung Cancer Screening [facility] Start: 03-03-2024 Covid-19 Vaccine ( season) Covid-19 Vaccine ( season) [facility] Start: 03-03-2024 Influenza vaccination Influenza Vacc ine (#1) [facility] Start: 02-29-2024 End: 02-29-2024 Patient encounter procedure 02/29/2024 1:45 PM EDT Office Visit Pulmonary Medicine [address] [place], [place] [address] Millie Sánchez MD [address] [place], [place] [id number] 6 month f/u Pulmonary Medicine Comment on above: 6 month f/u Start: 02-29-2024 End: 02-29-2024 ambulatory 02/29/2024 1:15 PM EDT Procedure PULM [facility] [address] [facility] [place] [place], [place] [id number] [facility], Pulm Lab [facility] [address] [facility] [address] Stage 4 very severe COPD by GOLD classification (HCC) [J44.9]; Chronic hypoxemic respiratory failure (HCC) [J96.11] [facility]UL[facility] Comment on above: Stage 4 very severe COPD by GOLD classification (HCC) [J44.9]; Chronic hypoxemic respiratory failure (HCC) [J96.11] Start: 01-01-2024 DIABETES SCREEN DIABETES SCREEN [facility] Start: 01-01-2024 Diabetes Screening Diabetes Screenin g [facility] Start: 12-02-2023 ANNUAL PCP TEAM BRIM BUSTER YI DISEASE VISIT ANNUAL PCP TEAM CHRONIC DISEASE VISIT [facility] Start: 07-03-2023 Behavioral Health Screening Behavioral Health Screening [facility] Start: 07-03-2023 Depression Assessment Depression Ass essment [facility] Start: 05-17-2023 PNEUMOCOCCAL (2 - PCV) PNEUMOCOCCAL (2 - PCV) [facility] Start: 03-16-2023 Influenza vaccination LUNG CANCER SC REENING [facility] Start: 03-03-2023 Covid-19 Vaccine () Covid-19 Vaccine () [facility] Start: 03-03-[address] [facility] Start: 02-02-2023 Adult depression screening assessment DEPRESSION SCREENING [facility] Start: 12-26-2022 Adult depression screening assessment DEPRESSION SCREENING [facility] Start: 11-15-2022 PROSTATE CANCER SCREENING DISCUSSION PROSTATE CANCER SCREENING DISCUSSION [facility] Start: 11-15-2022 Prostate specific antigen measurement Prostate Cancer Screening Discussion [facility] Start: 07-12-2022 SHINGRIX VACCINE (2 of 2) SHINGRIX VACCINE (2 of 2) [facility] Start: 07-03-2022 DEPRESSION ASSESSMENT DEPRESSION ASS ESSMENT [facility] [facility] Start: 06-20-2022 COVID-19 VACCINE (5 - Booster for Pfizer series) COVID-19 VACCINE (5 - Booster for Pfizer series) [facility] Start: 06-20-2022 COVID-19 VACCINE (5 - Pfizer series) COVID-19 VACCINE (5 - Pfizer series) [facility] Start: 03-04-2022 End: 05-04-2022 ALGN BADEN GRP ALGN BADEN GRP Lab Routine Asthma-COPD overlap syndrome (HCC) Expected: 03/04/2022, Expires: 05/04/2022 [facility] Work Phone: Comment on above: Expected: 03/04/2022 , Expires: 05/04/2022 Start: 03-04-2022 End: 05-04-2022 Eosinophils [#/volume] in Blood EOSINOPHIL ABS COUNT Lab Routine Asthma-COPD overlap syndrome (HCC) Expected: 03/04/2022, Expires: 05/04/2022 [facility] Work Phone: Comment on above: Expected: 03/04/2022 , Expires: 05/04/2022 Start: 03-04-2022 End: 05-04-2022 IgE [Units/volume] in Serum or Plasma IGE BLD Lab Routine Asthma-COPD overlap syndrome (HCC) Expected: 03/04/2022, Expires: 05/04/2022 [facility] Work Phone: Comment on above: Expected: 03/04/2022 , Expires: 05/04/2022 Start: 03-03-2022 Influenza vaccination INFLUENZA (#1) [facility] Start: 11-07-2021 COVID-19 VACCINE (4 - Booster for Pfizer series) COVID-19 VACCINE (4 - Booster for Pfizer series) [facility] Start: 09-04-2021 COVID-19 VACCINE (4 - Booster for Pfizer series) COVID-19 VACCINE (4 - Booster for Pfizer series) [facility] Start: 07-03-2021 DEPRESSION ASSESSMENT DEPRESSION ASS ESSMENT [facility] Start: 05-26-2021 PNEUMOCOCCAL (2 - PCV) PNEUMOCOCCAL (2 - PCV) [facility] Start: 05-15-2021 ANNUAL PCP TEAM BRIM BUSTER YI DISEASE VISIT ANNUAL PCP TEAM CHRONIC DISEASE VISIT [facility] Start: 01-04-2021 Lipid 1996 panel - S nati or Plasma Lipid Screening [facility] Start: 01-04-2021 Lipid panel Lipid Screening [facility] Start: 01-04-2021 LIPID SCREEN LIPID SCREEN [facility] Start: 09-22-2018 Adult depression screening assessment DEPRESSION SCREENING [facility] Start: 11-15-2017 Influenza vaccination LUNG CANCER [facility] Start: 11-15-2017 SHINGRIX VACCINE (1 of 2) SHINGRIX VACCINE (1 of 2) [facility] Start: 11-15-2012 COLOGUARD (FIT-DNA) COLOGUARD (FIT-D NA) [facility] Start: 11-15-[address] COLONOGRAPHY [facility] Start: 11-15-2012 FECAL OCCULT BLOOD FECAL OCCULT BLOO D [facility] Start: 11-15-2012 Screening for malign ant neoplasm of colon [facility] Start: 11-15-2012 SIGMOIDOSCOPY SIGMOIDOSCOPY [facility] Start: 11-15-1986 Hepatitis B Vaccine (1 of 3 - 19+ 3-dose series) Hepatitis B Vaccine (1 of 3 - 19+ 3-dose series) [facility] Start: 11-15-1986 Urine microalbumin profile [facility] Start: 11-15-1985 Anxiety Screening Anxiety Screening [facility] Start: 11-15-1985 Depression Screening Depression Scre ening [facility] Start: 11-15-1985 HEPATITIS C [facility] Start: 11-15-1985 Hepatitis C screening Hepatitis C Sc [facility] Start: 11-15-1985 HIV SCREENING HIV SCREENING [facility] Start: 11-15-1985 HIV screening HIV Screening [facility] Start: 1965 HEPATITIS B (1 of 3 - 3-dose series) HEPATITIS B (1 of 3 - 3-dose series) [facility] Start: 1965 Hepatitis B Vaccine (1 of 3 - 3-dose series) Hepatitis B Vaccine (1 of 3 - 3-dose series) [facility] CT Chest WO contrast CT CHEST WO IVCON Radiology Routine Lung nodules 05/20/2024 11:37 AM EST [facility] Work Phone: End: 06-26-2025 CT Chest WO contrast CT CHEST WO IVCON Radiology Routine Lung nodules 1 Occurrences starting 05/27/2024 until 06/26/2025 [facility] Work Phone: Comment on above: 1 Occurrences starti ng 05/27/2024 until 06/26/2025 End: 12-18-2025 CT Chest WO contrast CT CHEST WO IVCON Radiology Routine Lung nodules 1 Occurrences starting 11/18/2024 until 12/18/2025 [facility] Work Phone: Comment on above: 1 Occurrences starti ng 11/18/2024 until 12/18/2025 CT Chest WO contrast CT CHEST WO IVCON Radiology Routine Lung nodules 11/18/2024 11:10 AM EDT [facility] Work Phone: End: 04-03-2023 Ct thorax w/o contrast material CT CHEST WO IVCON Radiology Routine Stage 4 very severe COPD by GOLD classification (HCC) 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HCC) 1 Occurrences starting 03/04/2022 until 04/03/2023 [facility] Work Phone: Comment on above: 1 Occurrences starti ng 03/04/2022 until 04/03/2023 End: 05-30-2024 Ct thorax w/o contrast material CT CHEST WO IVCON Radiology Routine Lung nodules 1 Occurrences starting 05/01/2023 until 05/30/2024 [facility] Work Phone: Comment on above: 1 Occurrences starti ng 05/01/2023 until 05/30/2024 End: 12-14-2023 OXIMETRY WITH AMBULATION OXIMETRY WITH AMBULATION PFT Routine Stage 4 very severe COPD by GOLD classification ([facility]) 1 Occurrences starting 11/14/2022 until 12/14/2023 [facility] Work Phone: Comment on above: 1 Occurrences starti ng 11/14/2022 until 12/14/2023 End: 09-27-2024 OXIMETRY WITH AMBULATION OXIMETRY WITH AMBULATION PFT Routine Stage 4 very severe COPD by GOLD classification ([facility]) Chronic hypoxemic respiratory failure (HCC) 1 Occurrences starting 08/29/2023 until 09/27/2024 [facility] Work Phone: Comment on above: 1 Occurrences starti ng 08/29/2023 until 09/27/2024 Pulmonary rehabilita tion pro CONSULT PULMONARY REHABILITATION PROGRAM Procedures Routine COPD, severe ([facility]) Ordered: 10/18/2024 [facility] Work Phone: Comment on above: Ordered: 10/18/2024 SPIROMETRY BASELINE ONLY SPIROME TRY BASELINE ONLY PFT Routine Stage 3 severe COPD by GOLD classification ([facility]) 03/04/2022 10:57 AM EDT [facility] Work Phone: [facility] Immunizations Immunization Date Immunization Notes Care Provider [facility] 07-22-2024 influenza, seasonal, injectable Mily Click [employer].MALTER OPERATOR Work Phone: [facility] 07-22-2024 pneumococcal conjuga te (PCV20) vaccine, 20 valent (PREVNAR 20) Mily Click [employer] TE[employer]ER.MALTER OPERATOR Work Phone: [facility] 07-22-2024 influenza virus vacc ine, unspecified formulation Mily Click [employer] TEACHER.MALTER OPERATOR Work Phone: [facility] 01-15-2024 zoster vaccine recombinant Millie Brown MD Work Phone: [facility] 04-11-2023 influenza, injectabl e, quadrivalent, contains preservative Gurmeet Tao APRN.MALTER OPERATOR Work Phone: [facility] 04-11-2023 influenza virus vacc ine, unspecified formulation Millie Sánchez MD Work Phone: [facility] 05-17-2022 pneumococcal (PCV20) vaccine, 20 valent (PREVNAR 20) Helen GRANDE-C Work Phone: [facility] Work Phone: 05-17-2022 pneumococcal polysaccharide vaccine, 23 valent Helen Newman PA-C Work Phone: [facility] 05-17-2022 zoster vaccine recombinant Helen GRANDE-C Work Phone: [facility] 04-25-2022 COVID-19 vaccine (UNSPECIFIED) Nurse Wstr Work Phone: [facility] 04-25-2022 COVID-19 vaccine, ag e 12+ yr, bivalent (PFIZER-YamliNTSharewave) Helen GRANDE-C Work Phone: [facility] Work Phone: 04-25-2022 Influenza, injectabl e, Madin Ana Canine Kidney, preservative free, quadrivalent Helen GRANDE-C Work Phone: [facility] Work Phone: 04-25-2022 influenza, seasonal, injectable Nurse Wstr Work Phone: [facility] 04-25-2022 influenza virus vacc ine, unspecified formulation Millie Sánchez MD Work Phone: [facility] 07-10-2021 Influenza, injectabl e, Madin Casselberry Canine Kidney, quadrivalent with preservative Helen Newman PA-C Work Phone: [facility] Work Phone: 11-12-2020 COVID-19 vaccine, ag e 12+ yr (PFIZER-BIONTECH - PURPLE TOP) Helen Yadavone PA-C Work Phone: [facility] 10-22-2020 COVID-19 vaccine, ag e 12+ yr (PFIZER-BIONTECH - PURPLE TOP) Helen Yadavone PA-C Work Phone: [facility] 05-26-2020 pneumococcal polysaccharide vaccine, 23 valent Helen Russ PA-C Work Phone: [facility] Work Phone: 05-15-2020 influenza, injectabl e, quadrivalent, contains preservative Helen Russ PA-C Work Phone: [facility] Payers Date Payer Category Payer Self-pay 2023 [employer] Blue Shield BLUE ACCE PPO [id number] 2023 Unknown [id number] 2017 Unknown MMO MMO [employer] [id number] 2017-Present [phone] [address] [place] [address] PPO [id number] 2017 Unknown [id number] Unknown [id number] Unknown [id number] Unknown [id number] Unknown [id number] Social History Date Type Detail Facility Start: 10-29-2015 End: 02-29-2024 Tobacco smoking status NHIS Ex-smoker [facility] in Start: 1979 End: 09-06-2015 History of tobacco use Current smoker [facility] Start: 10-29-2015 End: 12-01-2022 Cigarettes smoked current (pack per day) - Reported 1 [facility] Start: 10-29-2015 End: 02-29-2024 Tobacco use and exposure User of smokeless tobacco [facility] History of tobacco use Chews Tobacco [facility] Start: 09-03-2021 End: 11-18-2024 Alcohol intake Current drinker of alcohol (finding) [facility] Start: 05-13-2020 End: 11-25-2022 History SDOH Alcohol Frequency 1 [facility] Start: 05-13-2020 End: 11-25-2022 History SDOH Alcohol Std Drinks 98 [facility] Start: 09-03-2021 History SDOH Alcohol Comment 1 beer a night [facility] Start: 05-13-2020 History SDOH Social Connections Phone 5 [facility] Start: 05-13-2020 End: 11-25-2022 History SDOH Social Connections Get Together 3 [facility] Start: 05-13-2020 End: 11-25-2022 History SDOH Social Connections Membership 2 [facility] Start: 05-13-2020 End: 11-25-2022 History SDOH Physical Activity DPW 0 [facility] Start: 05-13-2020 Education 21 [facility] Start: 09-22-2016 End: 03-04-2022 Tobacco Comment No smokers in current home. [facility] Start: 1965 Sex Assigned At Not on file [facility] Start: 2021 End: 05-21-2022 Exposure to SARS-CoV-2 (event) Not sure [facility] Start: 1977 End: 09-06-2015 History of tobacco use Cigarette Smoker [facility] Start: 11-25-2022 History SDOH Financial 4 [facility] Start: 11-25-2022 End: 12-01-2022 Social connection and isolation panel [facility] Start: 06-03-2012 In a typical week, h ow many times do you talk on the telephone with family, friends, or neighbors? Patient refused [facility] Do you belong to any clubs or organizations such as judaism groups, unions, fraChronoWake or athletic groups, or school groups? No [facility] Are you now , , , , never or living with a partner? [facility] How often to you hav e a drink containing alcohol? Monthly or less [facility] How many standard dr inks containing alcohol do you have on a typical day? 1 or 2 [facility] How often do you hav e 6 or more drinks on 1 occasion? Never [facility] How hard is it for y ou to pay for the very basics like food, housing, medical care, and heating Not very hard [facility] Do you feel stress - tense, restless, nervous, or anxious, or unable to sleep at night because your mind is troubled all the time - these days [OSQ] Only a little [facility] (I/We) worried wheth er (my/our) food would run out before (I/we) got money to buy more. Never true [facility] Medical Equipment Procedure Code Equipment Code Equipment Original Text Equipment Identifier Dates Clip Sugita 10mm Standard Titanium 2 9mm Aneurysm Slightly Curved - [id number] Start: 01-06-2016 Clip Sugita 7mm Mini Titanium 2 6mm Aneurysm Straight Nonsterile - [id number] Start: 01-06-2016 Clip Aneurysm Ti i 10.5 Str 10mm - [id number] Start: 01-06-2016 Cover 14mm Low P rofile Titanium [place] Tab 1.5mm Screw Nonsterile - [id number] Start: 01-06-2016 Cover 10mm Mediu m Titanium [place] Low Profile Tab 1.5mm Screws - [id number] Start: 01-06-2016 Cover 20mm Titan ium [place] Low Profile Tab Craniomaxillofacial - [id number] Start: 01-06-2016 Plate 2y Micro L ow Profile 8mm Bone 6 Hole Bar Cranium - [id number] Start: 01-06-2016 Screw 1.5mm 4mm Bone Self Drill [place] Craniomaxillofacial - [id number] Start: 01-06-2016 Screw 1.5mm 4mm Bone Self Drill [place] Craniomaxillofacial - [id number] Start: 01-06-2016 Functional Status Date Assessment Result Facility 01-15-2016 Are you deaf, or do you have serious difficulty hearing No 01/15/2016 7:21 PM Flaca Mejía RN No [facility] 01-15-2016 Are you blind, or do you have serious difficulty seeing, even when wearing glasses No 01/15/2016 7:21 PM Flaca Mejía RN No [facility] 01-15-2016 Do you have serious difficulty walking or climbing stairs No 01/15/2016 7:21 PM Flaca Mejía RN No [facility] 01-15-2016 Do you have difficul ty dressing or bathing No 01/15/2016 7:21 PM Flaca Mejía RN No [facility] 01-15-2016 Because of a physica l, mental, or emotional condition, do you have difficulty doing errands alone such as visiting a physician's office or shopping No 01/15/2016 7:21 PM Flaca Mejía RN No [facility] Mental Status Date Assessment Result Facility 01-15-2016 Because of a physica l, mental, or emotional condition, do you have serious difficulty concentrating, remembering, or making decisions No 01/15/2016 7:21 PM Flaca Mejía RN No [facility] Clinical Notes 11-25-2021 to 01-28-2025 Telephone Encounter - Renee Perez MA - 01/28/2025 3:48 PM EDTTelephone Encounter - Renee Perez MA - 01/28/2025 3:48 PM EDTTelephone Encounter - Nick Pat LPN - 01/15/2025 1:59 PM EDT Note Date & Type Note Facility 01-28-2025 Telephone encounter Note Advised pt via mychart that he needs an appointment to evaluate swelling. Renee Perez MA [facility] 01-28-2025 Miscellaneous Notes Advised pt via mychart that he needs an appointment to evaluate swelling. Renee Perez MA documented in this encounter [facility] 01-21-2025 Telephone encounter Note Patient phones requesting refills as follows: [facility] 07/30/24 Requested Prescriptions Pending Prescriptions Disp Refills fluticasone uxudqlz-qkzxrdhweryy-dpjouynghf (TRELEGY ELLIPTA) 200-62.5-25 mcg powder inhaler 180 each 3 Sig: Inhale 1 puff as instructed once daily. Please review and advise. Yulisa Keith LPN [facility] 01-21-2025 Miscellaneous Notes Patient phones requesting refills as follows: [facility] 07/30/24 Requested Prescriptions Pending Prescriptions Disp Refills fluticasone wpmogfe-gyynyxijrsoh-ttgzhmsrgy (TRELEGY ELLIPTA) 200-62.5-25 mcg powder inhaler 180 each 3 Sig: Inhale 1 puff as instructed once daily. Please review and advise. Yulisa Keith LPN documented in this encounter [facility] 01-15-2025 Telephone encounter Note The following approved medication requests have been transmitted electronically. Requested Prescriptions Pending Prescriptions Disp Refills traZODone (DESYREL) 50 mg tablet 90 tablet 1 Sig: Take 1 tablet by mouth daily at bedtime. Gurmeet Tao APRN.CNP [facility] 01-15-2025 Miscellaneous Notes The following approved medication requests have been transmitted electronically. Requested Prescriptions Pending Prescriptions Disp Refills traZODone (DESYREL) 50 mg tablet 90 tablet 1 Sig: Take 1 tablet by mouth daily at bedtime. Guremet Tao APRN.CNP Prescription Refill Information The patient has been identified by name and date of : Yes Caregiver verified no other encounters exist for this prescription request: Yes Caregiver confirmed with patient/requestor that no other refills are due, in the near future, with this provider at this time: Yes The last office visit in the department: 11/01/24 Does the patient have a future office visit with this provider/department: No Requested Prescriptions Pending Prescriptions Disp Refills traZODone (DESYREL) 50 mg tablet 90 tablet 1 Sig: Take 1 tablet by mouth daily at bedtime. Nick Pat LPN January 15, 2025 1:59 PM documented in this encounter [facility] 01-15-2025 Telephone encounter Note Prescription Refill Information The patient has been identified by name and date of : Yes Caregiver verified no other encounters exist for this prescription request: Yes Caregiver confirmed with patient/requestor that no other refills are due, in the near future, with this provider at this time: Yes The last office visit in the department: 11/01/24 Does the patient have a future office visit with this provider/department: No Requested Prescriptions Pending Prescriptions Disp Refills traZODone (DESYREL) 50 mg tablet 90 tablet 1 Sig: Take 1 tablet by mouth daily at bedtime. Nick Pat LPN January 15, 2025 1:59 PM [facility] 01-07-2025 Telephone encounter Note Attempted to contact patient. Left detailed voicemail offering afternoon appointment today. Yulisa Keith LPN [facility] 01-07-2025 Miscellaneous Notes Attempted to contact patient. Left detailed voicemail offering afternoon appointment today. Yulisa Keith LPN documented in this encounter [facility] 11-28-2024 Telephone encounter Note Pt returned my phone call and is feeling much better. He agrees with the 3 month follow up. He should follow up with pulmonology or myself if he is having any issues in the interim. He will check My Chart for his appointments. Nathalie Mojica APRN.CNP [facility] 11-28-2024 Miscellaneous Notes Pt returned my phone call and is feeling much better. He agrees with the 3 month follow up. He should follow up with pulmonology or myself if he is having any issues in the interim. He will check My Chart for his appointments. Nathalie Mojica APRN.CNP Left message for pt to call back regarding results. Plan to discuss CT Results Stable lung nodules. Multifocal infectious inflammatory disease. Recommendations: He was treated with levaquin and prednisone. For lung nodule follow up 12 months would be recommended. However, with the infectious inflammatory findings I reviewed his case with his icu staff nurse and we are recommending a 3 month follow up. Nathalie Mojica APRN.CNP November 28, 2024 12:35 PM documented in this encounter [facility] 11-28-2024 Telephone encounter Note Left message for pt to call back regarding results. Plan to discuss CT Results Stable lung nodules. Multifocal infectious inflammatory disease. Recommendations: He was treated with levaquin and prednisone. For lung nodule follow up 12 months would be recommended. However, with the infectious inflammatory findings I reviewed his case with his icu staff nurse and we are recommending a 3 month follow up. Nathalie Mojica APRN.CNP November 28, 2024 12:35 PM [facility] 11-27-2024 Telephone encounter Note THOMAS: 10/18/24 with Mily Click Future OV: Visit date not found Patient requests via MyChart refills as follows: Requested Prescriptions Pending Prescriptions Disp Refills pantoprazole DR (PROTONIX) 40 mg tablet 90 tablet 3 Sig: Take 1 tablet by mouth every afternoon. Please review and advise. Claudia Dean RN [facility] 11-27-2024 Miscellaneous Notes THOMAS: 10/18/24 with Mily Click Future OV: Visit date not found Patient requests via MyChart refills as follows: Requested Prescriptions Pending Prescriptions Disp Refills pantoprazole DR (PROTONIX) 40 mg tablet 90 tablet 3 Sig: Take 1 tablet by mouth every afternoon. Please review and advise. Claudia Dean RN documented in this encounter [facility] 11-18-2024 Instructions Nathalie Mojica APRN.CNP - 11/18/2024 11:36 AM EDT Duoneb (albuterol/ipratropium) nebulizer treatments every 6 hours as needed or albuterol inhaler 2 puffs every 4 hours as needed for shortness of breath, wheezing, or coughing jags. Budesonide nebulizer twice a day as needed. For the next few days take these regularly. If it's time for duoneb and budesonide take the duoneb first. Begin the prednisone and levaquin today. Follow up with icu staff nurse if any new or unresolving symptoms. If you are feeling worse please go to the emergency room. We will follow up on the CT Scan in 2-3 months. documented in this encounter [facility] 11-18-2024 History of Presen t illness Narrative Images from the original note were not included. [facility] INCIDENTAL LUNG NODULE PROGRAM Impression / Recommendations 1. Lung nodules (Primary) JANNET nodule of concern is resolved. All other nodules are small and stable. There are new inflammatory opacities in RML, RLL, and LLL. 2. Nicotine Dependence, Former: Continue to abstain from smoking cigarettes. 3. Stage 4 very severe COPD by GOLD classification (HCC) Continue to follow up with icu staff nurse. On supplemental oxygen, Trelegy and singulair daily. Take prednisone and levaquin starting today. Reviewed instructions for nebulizers and albuterol use. Recommended Duoneb every 6 hours and budesonide nebulizer twice daily for the next few days then can transition to as needed. He may use albuterol inhaler every 4 hours in coordination with duoneb doses. Follow up with icu staff nurse if any new or continued symptoms. If worsening symptoms he should go to the emergency room. Requesting Provider: Nathalie Mojica Reason for the Consult Karli Duke presents today for consultation / opinion regarding lung nodule(s). My impression and final recommendations will be communicated back to the requesting physician by way of shared medical record or letter via US mail. History of Present Illness Karli Duke is a 59 year old male with a pertinent past medical history significant for History of tobacco abuse: (>30 pack-years, 9 years since quit) who is being seen as a new consultation for evaluation of a lung nodule(s). Karli Duke had a CT Chest on 05/20/2024 for the indication of lung nodules. >5 nodules were detected Incidentally. The nodule of greatest concern is a Solid 5 mm nodule with a Irregular border in the Left upper lobe/lingula of the lung, that increased in size from 3 to 5 mm. Stable 15 mm RUL non-solid nodule is stable. Prior imaging: (Yes What type of prior imaging? CT Scan Was the nodule of concern seen on prior imaging? Yes Has the nodule of concern remained stable? Increased in Size) per radiology report 05/20/2024 Radiology report indicated this JANNET nodule increased in size from 3-5 mm from 04/24/2023. No nodule was noted in this area on 04/24/2023 images. Pt had interval CTA Chest at [facility] 07/20/2024 and the JANNET 5 mm nodule was decreased in size. There were new inflammatory/infectious opacities noted. Treated for pneumonia with levaquin, prednisone, lasix and mucinex. Pt is on supplemental oxygen. He called nurse help line last night for shortness of breath and they advised patient to go to ER. He did not go. He came today for his CT scan and follow up visit. He has been having cough and congestion for the last few weeks. His had an illness as well. He denies fever, but has colored sputum green with black in it. The black stuff tastes like tar and powdered paint. He is having increased wheezing and shortness of breath. He has been taking 1 of his nebulizers daily. Not sure which one and using in puff of albuterol. We discussed the dose is 2 puffs. He has not been using this that often even though he has been having increased symptoms. Last 12 Encounter Wt Readings: Date: Wt: 08/01/2024 68.3 kg (150 lb 9.2 oz) 02/29/2024 69.4 kg (153 lb) 02/29/2024 69.4 kg (153 lb) 08/29/2023 69.9 kg (154 lb) 08/29/2023 69.9 kg (154 lb) 06/14/2023 73 kg (161 lb) 04/11/2023 73.5 kg (162 lb) 03/14/2023 73.9 kg (163 lb) 12/12/2022 75.3 kg (166 lb) 12/12/2022 75.3 kg (166 lb) 12/01/2022 75.2 kg (165 lb 11.2 oz) 11/14/2022 74.8 kg (165 lb)] Modified Medical Research [place] Dyspnea Scale (MMRC) I am too breathless to leave the house or I am breathless when dressing 4 Problem List, History, Medications and allergies have been reviewed from the [facility] electronic medical record and any appropriate up-dates have been made. Physical Exam BP (P) 112/68 Pulse 61 Resp 19 SpO2 97% General Appearance: Thin and Wheelchair. Neck: Supple, no adenopathy; thyroid symmetric, normal size Lungs: Positive findings: diminished lung sounds . Heart: RRR without murmur, gallop, or rubs. No ectopy. Neurologic: Oriented X 3. Diagnostic Data I have personally visualized, reviewed and analyzed the findings on pulmonary function testing and radiographs. New JANNET nodule noted on 05/20/2024 described by radiology as increasing in size is now resolved. Stable JANNET nodule New patchy opacities in RML RLL opacities vs atelectasis LLL inflammatory opacities vs atelectasis Stable to improved RUL non-solid opacity Last CT/CTA Chest/Lungs CT CHEST WO IVCON Exam End: 05/20/2024 11:37 AM (Final result) Narrative: * * *Final Report* * * DATE OF EXAM: May 20 2024 11:37AM [facility] 0541 - CT CHEST WO IVCON / PROCEDURE REASON: Lung nodules * * * * Physician Interpretation * * * * EXAMINATION: CHEST CT WITHOUT CONTRAST CLINICAL HISTORY: Follow-up lung nodules Technique: Spiral CT acquisition of the chest from the thoracic inlet to the upper abdomen without contrast. MQ: [id number]_6 CT Radiation dose: Integrated Dose-length product (DLP) for this visit = 212 mGy*cm CT Dose Reduction Employed: Automated exposure control(AEC) and iterative recon Comparison: CT chest dated 04/24/2023 RESULT: Limitations: None. Lines, tubes, and devices: None. Lung parenchyma and airways: Upper lung zone predominant emphysematous changes. Stable ill-defined groundglass opacity in the right apex measuring approximately 1.5 cm in size (7, 36). A few additional stable scattered pulmonary nodules with congressional representative measurements as follows. Stable 4 mm right anterior upper lobe groundglass nodular opacity (7, 49). Stable 2 to 3 mm right upper lobe nodule (7, 58). Stable 3 mm calcified right lower lobe granuloma. Stable 3 mm left lower lobe nodule (7, 116). Stable 2 to 3 mm left lower lobe nodules (7, 136). A few additional stable less than 5 mm nodules. Slight interval increase in size of an ill-defined nodular opacity in the left upper lobe now measuring 5 mm (7, 64), previously 3 mm. Mild atelectatic changes. Pleural space: No pleural effusion. No pleural thickening. Lower neck, lymph nodes, and mediastinum: The imaged thyroid gland is normal. No lymphadenopathy in the supraclavicular, axillary, mediastinal, or hilar regions. Heart, pericardium, and thoracic vessels: The thoracic aorta and main pulmonary artery are normal in caliber. The cardiac chambers are normal in size. Coronary artery atherosclerotic calcifications are noted, although the study is not optimized for coronary assessment. No pericardial effusion or thickening. Bones and soft tissues: Degenerative changes. Upper abdomen: Hepatic steatosis. Atherosclerotic calcification of the vasculature. No additional abnormality in the imaged upper abdomen within the limits of noncontrast technique. Localizer images: No additional findings. Impression: IMPRESSION: 1. Mild emphysema. 2. Slight interval increase in size of an ill-defined now 5 mm left upper lobe nodule. Close attention on follow-up imaging is advised. 3. Remainder of the nodular opacities including a 1.5 cm right upper lobe groundglass opacity appear stable. Laboratory Helper: FABIANA Transcribe Date/Time: May 22 2024 12:58P Dictated by : BIBI BOWER MD This examination was interpreted and the report reviewed and electronically signed by: BIBI BOWER MD on May 22 2024 1:04PM EST Latest Ref Rng & Units 08/29/2023 Lung Volumes FRC Box (L) L 5.73 RV Box (L) L 4.86 ERV BOX (L) L 0.90 VC (L) BOX L 2.32 IC BOX (L) L 1.42 TLC Box (L) L 7.16 RV/TLC Box (%) % 68 Latest Ref Rng & Units 08/29/2023 03/04/2022 03/31/2021 Spirometry Data FVC PRE (L) L 2.21 2.59 2.60 FEV1 PRE (L) L 0.57 0.69 0.76 FEV1/FVC PRE (%) % 26 27 29 DWF36-36% PRE (L/S) L/S 0.16 0.19 0.19 PEF PRE (L/S) L/S 2.40 3.00 2.86 VC (L) BOX L 2.32 IC BOX (L) L 1.42 ERV BOX (L) L 0.90 DLCO (ml/min/mmHg) ml/min/mmHg 9.66 10.15 FRC Box (L) L 5.73 RV Box (L) L 4.86 TLC Box (L) L 7.16 RV/TLC Box (%) % 68 VA (L) L 4.24 4.36 DLCO/VA (ml/min/mmHg/L) ml/min/mmHg/L 2.28 2.33 Latest Ref Rng & Units 08/29/2023 03/04/2022 Lung Diffusion DLCO (ml/min/mmHg) ml/min/mmHg 9.66 10.15 DLCO/VA (ml/min/mmHg/L) ml/min/mmHg/L 2.28 2.33 VA (L) L 4.24 4.36 Impression / Recommendations To optimize physician communication via the electronic health record, the Impression & Recommendations section has been placed at the beginning of this note. ------- Nathalie Mojica APRN.CNP Pulmonary & Critical Care Medicine November 18, 2024 8:40 AM Follow Up Diagnosis: Lung Nodule Follow up Date: 01/18/2025 Follow-Up Scheduled: No Pulmonary Follow-Up Type: Lung Nodule Surveillance Lung Nodule Program Location: [facility] documented in this encounter [facility] 11-18-2024 Note HNO ID: [id number] Author: NATHALIE MOJICA APRN.CNP Service: ? Author Type: Nurse Practitioner Type: Progress Notes Filed: 11/18/2024 13:24 Note Text: [facility] INCIDENTAL LUNG NODULE PROGRAM Impression / Recommendations 1. Lung nodules (Primary) JANNET nodule of concern is resolved. All other nodules are small and stable. There are new inflammatory opacities in RML, RLL, and LLL. 2. Nicotine Dependence, Former: Continue to abstain from smoking cigarettes. 3. Stage 4 very severe COPD by GOLD classification ([facility]) Continue to follow up with icu staff nurse. On supplemental oxygen, Trelegy and singulair daily. Take prednisone and levaquin starting today. Reviewed instructions for nebulizers and albuterol use. Recommended Duoneb every 6 hours and budesonide nebulizer twice daily for the next few days then can transition to as needed. He may use albuterol inhaler every 4 hours in coordination with duoneb doses. Follow up with icu staff nurse if any new or continued symptoms. If worsening symptoms he should go to the emergency room. --- Requesting Provider: Nathalie Mojica Reason for the Consult Karli Duke presents today for consultation / opinion regarding lung nodule(s). My impression and final recommendations will be communicated back to the requesting physician by way of shared medical record or letter via US mail. History of Present Illness Karli Duke is a 59 year old male with a pertinent past medical history significant for History of tobacco abuse: (>30 pack-years, 9 years since quit) who is being seen as a new consultation for evaluation of a lung nodule(s). Karli Duke had a CT Chest on 05/20/2024 for the indication of lung nodules. >5 nodules were detected Incidentally. The nodule of greatest concern is a Solid 5 mm nodule with a Irregular border in the Left upper lobe/lingula of the lung, that increased in size from 3 to 5 mm. Stable 15 mm RUL non-solid nodule is stable. Prior imaging: (Yes What type of prior imaging? CT Scan Was the nodule of concern seen on prior imaging? Yes Has the nodule of concern remained stable? Increased in Size) per radiology report 05/20/2024 Radiology report indicated this JANNET nodule increased in size from 3-5 mm from 04/24/2023. No nodule was noted in this area on 04/24/2023 images. Pt had interval CTA Chest at [facility] 07/20/2024 and the JANNET 5 mm nodule was decreased in size. There were new inflammatory/infectious opacities noted. Treated for pneumonia with levaquin, prednisone, lasix and mucinex. Pt is on supplemental oxygen. He called nurse help line last night for shortness of breath and they advised patient to go to ER. He did not go. He came today for his CT scan and follow up visit. He has been having cough and congestion for the last few weeks. His had an illness as well. He denies fever, but has colored sputum green with black in it. The black stuff tastes like tar and powdered paint. He is having increased wheezing and shortness of breath. He has been taking 1 of his nebulizers daily. Not sure which one and using in puff of albuterol. We discussed the dose is 2 puffs. He has not been using this that often even though he has been having increased symptoms. Last 12 Encounter Wt Readings: Date: Wt: 08/01/2024 68.3 kg (150 lb 9.2 oz) 02/29/2024 69.4 kg (153 lb) 02/29/2024 69.4 kg (153 lb) 08/29/2023 69.9 kg (154 lb) 08/29/2023 69.9 kg (154 lb) 06/14/2023 73 kg (161 lb) 04/11/2023 73.5 kg (162 lb) 03/14/2023 73.9 kg (163 lb) 12/12/2022 75.3 kg (166 lb) 12/12/2022 75.3 kg (166 lb) 12/01/2022 75.2 kg (165 lb 11.2 oz) 11/14/2022 74.8 kg (165 lb)] Modified Medical Research [place] Dyspnea Scale (MMRC) I am too breathless to leave the house or I am breathless when dressing 4 Problem List, History, Medications and allergies have been reviewed from the [facility] electronic medical record and any appropriate up-dates have been made. Physical Exam BP (P) 112/68 Pulse 61 Resp 19 SpO2 97% General Appearance: Thin and Wheelchair. Neck: Supple, no adenopathy; thyroid symmetric, normal size Lungs: Positive findings: diminished lung sounds . Heart: RRR without murmur, gallop, or rubs. No ectopy. Neurologic: Oriented X 3. Diagnostic Data I have personally visualized, reviewed and analyzed the findings on pulmonary function testing and radiographs. New JANNET nodule noted on 05/20/2024 described by radiology as increasing in size is now resolved. Stable JANNET nodule New patchy opacities in RML RLL opacities vs atelectasis LLL inflammatory opacities vs atelectasis Stable to improved RUL non-solid opacity Last CT/CTA Chest/Lungs CT CHEST WO IVCON Exam End: 05/20/2024 11:37 AM (Final result) Narrative: * * *Final Report* * * DATE OF EXAM: May 20 2024 11:37AM (more content not included)... [facility] 11-18-2024 History of Presen t illness Narrative Radiology Service Progress Note PATIENT NAME: Karli Duke DATE OF SERVICE: November 18, 2024 TIME: 12:30 PM PATIENT IDENTITY VERIFICATION COMPLETED USING TWO (2) IDENTIFIERS: Name and Date of confirmed by patient verbally. FALL SCREENING: Has the patient had 2 falls in the last year or 1 fall with injury or currently using an Ambulatory Assistive Device (Walker, Cane, Wheelchair, Crutches, etc.)? No PATIENT GENDER DATA: Assigned male at PATIENT RELEVANT IMPLANT DATA REVIEWED: Yes PATIENT PRESENTS WITH AN IMPLANTABLE OR ATTACHED TURN DOWN WORKER: No RADIOLOGY DEPARTMENT: CT; Exam(s) Completed: Chest PERIPHERAL IV DATA: Not applicable SIGNED BY: RT Oralia(Margoth) November 18, 2024 12:30 PM documented in this encounter [facility] 11-18-2024 Note HNO ID: [id number] Author: RENEE ENNIS RT(R) Service: ? Author Type: Civil Manager Type: Progress Notes Filed: 11/18/2024 12:30 Note Text: Radiology Service Progress Note PATIENT NAME: Karli Duke DATE OF SERVICE: November 18, 2024 TIME: 12:30 PM PATIENT IDENTITY VERIFICATION COMPLETED USING TWO (2) IDENTIFIERS: Name and Date of confirmed by patient verbally. FALL SCREENING: Has the patient had 2 falls in the last year or 1 fall with injury or currently using an Ambulatory Assistive Device (Walker, Cane, Wheelchair, Crutches, etc.)? No PATIENT GENDER DATA: Assigned male at PATIENT RELEVANT IMPLANT DATA REVIEWED: Yes PATIENT PRESENTS WITH AN IMPLANTABLE OR ATTACHED TURN DOWN WORKER: No RADIOLOGY DEPARTMENT: CT; Exam(s) Completed: Chest PERIPHERAL IV DATA: Not applicable SIGNED BY: RT Oralia(Margoth) November 18, 2024 12:30 PM [facility] 11-17-2024 Telephone encounter Note Reason for Call: Patient calling with worsening shortness of breath and difficulty breathing. Patient states he has COPD and he thinks he has a respiratory infection as he is coughing up green sputum. Patient states he has been taking his breathing treatments at home without improvement in his breathing. Endorses shortness of breath at rest and states he has to sit still to catch his breath. Outcome: Advised to go to ED now. Patient states understanding but has concern with getting a ride to hospital. Advised to call EMS for assistance in transporting patient to ED. Patient states understanding. Offered assistance in calling EMS but patient states he will be able to call for himself. Reason for Disposition [1] MODERATE difficulty breathing (e.g., speaks in phrases, SOB even at rest, pulse 100-120) AND [2] NEW-onset or WORSE than normal Protocols used: Breathing [id number] [facility] 11-17-2024 Miscellaneous Notes Reason for Call: Patient calling with worsening shortness of breath and difficulty breathing. Patient states he has COPD and he thinks he has a respiratory infection as he is coughing up green sputum. Patient states he has been taking his breathing treatments at home without improvement in his breathing. Endorses shortness of breath at rest and states he has to sit still to catch his breath. Outcome: Advised to go to ED now. Patient states understanding but has concern with getting a ride to hospital. Advised to call EMS for assistance in transporting patient to ED. Patient states understanding. Offered assistance in calling EMS but patient states he will be able to call for himself. Reason for Disposition [1] MODERATE difficulty breathing (e.g., speaks in phrases, SOB even at rest, pulse 100-120) AND [2] NEW-onset or WORSE than normal Protocols used: Breathing [id number] documented in this encounter [facility] 11-01-2024 History of Presen t illness Narrative Telemedicine Visit - Distance Health Virtual Visit Note Patient seen on [employer] Video Visit platform. Location of patient: [place] I have communicated my name and active licensure. The patient's identity and physical location were verified at the time of this visit. Either the patient or their legal congressional representative has been informed of the risks and benefits of -- and alternatives to -- treatment through a remote evaluation and consents to proceed with the evaluation remotely. History of Present Illness Karli Duke is a 58 year old male who presents for routine follow up. Karli is a 58-year-old male, with a history of insomnia, presenting for a 3-month follow-up. Karli was seen by Dr. Avelar in July following an ER visit and was prescribed trazodone 50 mg at bedtime for insomnia. He reports that the medication has been effective in improving his sleep without significant side effects, though he notes experiencing grogginess when his blood glucose levels drop. He also mentions feeling excessively warm at night, which causes him to wake up early. He discontinued melatonin after starting trazodone due to an unpleasant experience on the first night of concurrent use. Karli is also taking BuSpar 10 mg BID, which he reports is effective. He is not taking the third daily dose. He is considering pulmonary rehabilitation but finds it challenging to leave his home due to mobility issues, stating it takes him approximately an hour to get ready and drive to a location. Following with pulmonology for advanced COPD. PAST MEDICAL HISTORY Diagnosis Date Allergic rhinitis Asthma COPD (chronic obstructive pulmonary disease) ([facility]) Very severe Dependence on continuous supplemental oxygen Other and unspecified hyperlipidemia SAH (subarachnoid hemorrhage) ([facility]) Sleep apnea Tobacco abuse Quit 2015. PAST SURGICAL HISTORY Procedure Laterality Date COLONOSCOPY FLX DX W/COLLJ SPEC WHEN PFRMD 04/10/2019 Colonoscopy OTHER ANEURYSM REPAIR 01/04/2017 [facility] PAST SURGICAL HISTORY OF cyst on tailbone FAMILY HISTORY Problem Relation Age of Onset Diabetes Mother None Father other (overdose) Sister Allergies Daughter COPD No Family History Asthma No Family History Social History Tobacco Use Smoking status: Former Current packs/day: 0.00 Average packs/day: 1 pack/day for 35.8 years (35.8 ttl pk-yrs) Types: Cigarettes Start date: 1979 Quit date: 09/06/2015 Years since quittin.1 Smokeless tobacco: Current Types: Chew Tobacco comments: No smokers in current home. Vaping Use Vaping status: Never Used Substance Use Topics Alcohol use: Yes Comment: 1 beer a night Drug use: Yes Comment: CBD gummies Current Outpatient Medications Medication Sig busPIRone (BUSPAR) 10 mg tablet Take 1 tablet by mouth two times a day. budesonide (PULMICORT) 0.5 mg/2 mL nebulizer solution Use 2 mL via nebulizer two times a day as needed. INHALE 2 ML BY NEBULIZER OVER 5-15 MINUTES EVERY 12 HOURS. traZODone (DESYREL) 50 mg tablet Take 1 tablet by mouth daily at bedtime. furosemide (LASIX) 20 mg tablet 20 mg once daily. Nebulizer Accessories kit 1 Kit two times a day as needed (SOB, wheezing, cough). ipratropium-albuterol (DUONEB) 0.5 mg-3 mg(2.5 mg base)/3 mL nebu Inhale 3 mL as instructed every 6 hours as needed for wheezing/shortness of breath. MUCUS RELIEF ER 1,200 mg Ta12 Take 1 tablet by mouth two times a day. benzonatate (TESSALON PERLE) 100 mg capsule Take 1 capsule by mouth three times a day as needed for cough. montelukast (SINGULAIR) 10 mg tablet Take 1 tablet by mouth daily at bedtime. ymiycfddrdr-bdqrpuyzv-nuhzegnj (TRELEGY ELLIPTA) 200-62.5-25 mcg inhalation powder Inhale 1 Puff as instructed once daily. pantoprazole DR (PROTONIX) 40 mg tablet take 1 tablet by mouth every day ascorbic acid, vitamin C, (VITAMIN C) 250 mg tablet Take 250 mg by mouth once daily. ergocalciferol, vitamin D2, (VITAMIN D2 ORAL) Take by mouth. Vitamin E, dl, acetate, (VITAMIN E) 134 mg (200 unit) Capsule Take by mouth once daily. loratadine 10 mg cap Take 10 mg by mouth once daily. MULTIVITAMIN ORAL Take by mouth. States contains vitamin b,c,d albuterol HFA (PROVENTIL HFA, VENTOLIN HFA) 90 mcg/actuation inhaler Inhale 2 Puffs as instructed every 4 hours as needed. NEEDED FOR SHORTNESS OF BREATH AND WHEEZING aspirin, enteric coated (ASPIR-81) 81 mg EC tablet Take 1 tablet by mouth once daily. No current facility-administered medications for this visit. ALLERGIES Allergen Reactions Codeine Unknown Mold Other: See Comments Vicodin [Hydrocodon* Mental Status Change Video Exam (Examination performed via Video enabled technology) General appearance: Alert, oriented, pleasant, in NAD :Yes, wearing nasal cannula Ill appearing :No Lethargic appearing :No Respiratory distress :No PLAN: - Red flags discussed for need for in person care - All questions answered 1. Sleeping difficulty (G47.9) Currently managed with Trazodone 50 mg at bedtime, which is providing some relief. No significant side effects reported, except for initial grogginess and a decision to discontinue melatonin. - Continue Trazodone 50 mg at bedtime. - Advised patient to report if medication becomes ineffective; potential to increase dosage up to 200 mg if needed. - Scheduled follow-up in 6 months for virtual visit to monitor progress. 2. Anxiousness (F41.9) Managed with Buspirone 10 mg twice daily, which is effective. Patient reduced dosage from three times daily to twice daily. - Adjusted medication record to reflect current dosage of Buspirone 10 mg twice daily. - Continue current regimen. 3. Stage 4 very severe COPD by GOLD classification (HCC) (J44.9) Patient has inhalers prescribed but has not yet started pulmonary rehabilitation due to difficulty with mobility and transportation. - Discussed challenges of attending pulmonary rehab; will explore options to facilitate participation. - Continue current inhaler therapy. VV in 6 months. Gurmeet Tao APRN.STACY documented in this encounter [facility] 11-01-2024 Note HNO ID: [id number] Author: GURMEET TAO APRN.CNP Service: ? Author Type: Nurse Practitioner Type: Progress Notes Filed: 11/01/2024 11:40 Note Text: Telemedicine Visit - Distance Health Virtual Visit Note Patient seen on [employer] Video Visit platform. Location of patient: [place] I have communicated my name and active licensure. The patient's identity and physical location were verified at the time of this visit. Either the patient or their legal congressional representative has been informed of the risks and benefits of -- and alternatives to -- treatment through a remote evaluation and consents to proceed with the evaluation remotely. History of Present Illness Karli Duke is a 58 year old male who presents for routine follow up. Karli is a 58-year-old male, with a history of insomnia, presenting for a 3-month follow-up. Karli was seen by Dr. Avelar in July following an ER visit and was prescribed trazodone 50 mg at bedtime for insomnia. He reports that the medication has been effective in improving his sleep without significant side effects, though he notes experiencing grogginess when his blood glucose levels drop. He also mentions feeling excessively warm at night, which causes him to wake up early. He discontinued melatonin after starting trazodone due to an unpleasant experience on the first night of concurrent use. Karli is also taking BuSpar 10 mg BID, which he reports is effective. He is not taking the third daily dose. He is considering pulmonary rehabilitation but finds it challenging to leave his home due to mobility issues, stating it takes him approximately an hour to get ready and drive to a location. Following with pulmonology for advanced COPD. PAST MEDICAL HISTORY Diagnosis Date Allergic rhinitis Asthma COPD (chronic obstructive pulmonary disease) ([facility]) Very severe Dependence on continuous supplemental oxygen Other and unspecified hyperlipidemia SAH (subarachnoid hemorrhage) ([facility]) Sleep apnea Tobacco abuse Quit 2015. PAST SURGICAL HISTORY Procedure Laterality Date COLONOSCOPY FLX DX W/COLLJ SPEC WHEN PFRMD 04/10/2019 Colonoscopy OTHER ANEURYSM REPAIR 01/04/2017 [facility] PAST SURGICAL HISTORY OF cyst on tailbone FAMILY HISTORY Problem Relation Age of Onset Diabetes Mother None Father other (overdose) Sister Allergies Daughter COPD No Family History Asthma No Family History Social History Tobacco Use Smoking status: Former Current packs/day: 0.00 Average packs/day: 1 pack/day for 35.8 years (35.8 ttl pk-yrs) Types: Cigarettes Start date: 1979 Quit date: 09/06/2015 Years since quittin.1 Smokeless tobacco: Current Types: Chew Tobacco comments: No smokers in current home. Vaping Use Vaping status: Never Used Substance Use Topics Alcohol use: Yes Comment: 1 beer a night Drug use: Yes Comment: CBD gummies Current Outpatient Medications Medication Sig busPIRone (BUSPAR) 10 mg tablet Take 1 tablet by mouth two times a day. budesonide (PULMICORT) 0.5 mg/2 mL nebulizer solution Use 2 mL via nebulizer two times a day as needed. INHALE 2 ML BY NEBULIZER OVER 5-15 MINUTES EVERY 12 HOURS. traZODone (DESYREL) 50 mg tablet Take 1 tablet by mouth daily at bedtime. furosemide (LASIX) 20 mg tablet 20 mg once daily. Nebulizer Accessories kit 1 Kit two times a day as needed (SOB, wheezing, cough). ipratropium-albuterol (DUONEB) 0.5 mg-3 mg(2.5 mg base)/3 mL nebu Inhale 3 mL as instructed every 6 hours as needed for wheezing/shortness of breath. MUCUS RELIEF ER 1,200 mg Ta12 Take 1 tablet by mouth two times a day. benzonatate (TESSALON PERLE) 100 mg capsule Take 1 capsule by mouth three times a day as needed for cough. montelukast (SINGULAIR) 10 mg tablet Take 1 tablet by mouth daily at bedtime. wrhkyfdguwy-ehcvfoyts-lhdkwysx (TRELEGY ELLIPTA) 200-62.5-25 mcg inhalation powder Inhale 1 Puff as instructed once daily. pantoprazole DR (PROTONIX) 40 mg tablet take 1 tablet by mouth every day ascorbic acid, vitamin C, (VITAMIN C) 250 mg tablet Take 250 mg by mouth once daily. ergocalciferol, vitamin D2, (VITAMIN D2 ORAL) Take by mouth. Vitamin E, dl, acetate, (VITAMIN E) 134 mg (200 unit) Capsule Take by mouth once daily. loratadine 10 mg cap Take 10 mg by mouth once daily. MULTIVITAMIN ORAL Take by mouth. States contains vitamin b,c,d albuterol HFA (PROVENTIL HFA, VENTOLIN HFA) 90 mcg/actuation inhaler Inhale 2 Puffs as instructed every 4 hours as needed. NEEDED FOR SHORTNESS OF BREATH AND WHEEZING aspirin, enteric coated (ASPIR-81) 81 mg EC tablet Take 1 tablet by mouth once daily. No current facility-administered medications for this visit. ALLERGIES Allergen Reactions Codeine Unknown Mold Other: See Comments Vicodin [Hydrocodon* Mental Status Change Video Exam (Examination performed via Video enabled technology) General appearance: Alert, oriented, pleasant, in NAD (more content not included)... [facility] 10-28-2024 Telephone encounter Note Called patient regarding pulmonary rehab program. Patient answered and stated that they will give me a call back when they are interested. Patient has my phone number to call me back. [phone] [facility] 10-28-2024 Miscellaneous Notes Called patient regarding pulmonary rehab program. Patient answered and stated that they will give me a call back when they are interested. Patient has my phone number to call me back. [phone] documented in this encounter [facility] 10-21-2024 Telephone encounter Note Called patient regarding pulmonary rehab program. Patient did not answer, so I left a message on voicemail with instructions on how to contact me. [phone] [facility] 10-21-2024 Miscellaneous Notes Called patient regarding pulmonary rehab program. Patient did not answer, so I left a message on voicemail with instructions on how to contact me. [phone] documented in this encounter [facility] 10-18-2024 History of Presen t illness Narrative VIRTUAL VISIT PROGRESS NOTE This is a virtual visit using [employer] Video Visit. It required patient-provider interaction for the medical decision making as documented below. I have communicated my name and active licensure. The patient's identity and physical location were verified at the time of this visit. Either the patient or their legal congressional representative has been informed of the risks and benefits of -- and alternatives to -- treatment through a remote evaluation and consents to proceed with the evaluation remotely. Karli Duke is a 58 year old male seen for follow-up COPD. He has a past medical history of former 35 pack year smoker, quitting in 2016 with PMH significant for childhood asthma, very severe COPD, chronic hypoxemic respiratory failure, allergies previously on IT, SAH, GHASSAN. Has previously declined pulmonary rehab, endobronchial valve assessment and transplant evaluation. Current inhaled therapy with Trelegy Ellipta and as needed albuterol/Duoneb. THOMAS 07/2024 following hospitalization for Pneumonia. Was prescribed Duoneb which he reports has been beneficial. Overall, he reports symptoms have been stable. Currently reports an occasional productive cough which he attributes to PND d/t allergies. He is using Singulair. Rare chest tightness. Exertional dyspnea continues to be the most limiting factor. Does not leave the house as often d/t SOB limiting him. Denies any significant respiratory illnesses since his last visit. No need for steroids or antibiotics. He self monitors SPO2 and reports he stays WNL on 2L. Using Duoneb a few days a week. HISTORY REVIEWED (electronic chart updated): PAST MEDICAL HISTORY Diagnosis Date Allergic rhinitis Asthma COPD (chronic obstructive pulmonary disease) ([facility]) Very severe Dependence on continuous supplemental oxygen Other and unspecified hyperlipidemia SAH (subarachnoid hemorrhage) ([facility]) Sleep apnea Tobacco abuse Quit 2015. PAST SURGICAL HISTORY Procedure Laterality Date COLONOSCOPY FLX DX W/COLLJ SPEC WHEN PFRMD 04/10/2019 Colonoscopy OTHER ANEURYSM REPAIR 01/04/2017 [facility] PAST SURGICAL HISTORY OF cyst on tailbone FAMILY HISTORY Problem Relation Age of Onset Diabetes Mother None Father other (overdose) Sister Allergies Daughter COPD No Family History Asthma No Family History Social History Tobacco Use Smoking status: Former Current packs/day: 0.00 Average packs/day: 1 pack/day for 35.8 years (35.8 ttl pk-yrs) Types: Cigarettes Start date: 1979 Quit date: 09/06/2015 Years since quittin.1 Smokeless tobacco: Current Types: Chew Tobacco comments: No smokers in current home. Vaping Use Vaping status: Never Used Substance Use Topics Alcohol use: Yes Comment: 1 beer a night Drug use: Yes Comment: CBD gummies Current Outpatient Medications Medication Sig traZODone (DESYREL) 50 mg tablet Take 1 tablet by mouth daily at bedtime. furosemide (LASIX) 20 mg tablet 20 mg once daily. Nebulizer Accessories kit 1 Kit two times a day as needed (SOB, wheezing, cough). ipratropium-albuterol (DUONEB) 0.5 mg-3 mg(2.5 mg base)/3 mL nebu Inhale 3 mL as instructed every 6 hours as needed for wheezing/shortness of breath. MUCUS RELIEF ER 1,200 mg Ta12 Take 1 tablet by mouth two times a day. benzonatate (TESSALON PERLE) 100 mg capsule Take 1 capsule by mouth three times a day as needed for cough. busPIRone (BUSPAR) 10 mg tablet Take 1 tablet by mouth three times a day. montelukast (SINGULAIR) 10 mg tablet Take 1 tablet by mouth daily at bedtime. datjauqejjj-clsvvewbo-ckwdxnrb (TRELEGY ELLIPTA) 200-62.5-25 mcg inhalation powder Inhale 1 Puff as instructed once daily. pantoprazole DR (PROTONIX) 40 mg tablet take 1 tablet by mouth every day ascorbic acid, vitamin C, (VITAMIN C) 250 mg tablet Take 250 mg by mouth once daily. ergocalciferol, vitamin D2, (VITAMIN D2 ORAL) Take by mouth. Vitamin E, dl, acetate, (VITAMIN E) 134 mg (200 unit) Capsule Take by mouth once daily. melatonin 10 mg chew Take by mouth. loratadine 10 mg cap Take 10 mg by mouth once daily. MULTIVITAMIN ORAL Take by mouth. States contains vitamin b,c,d albuterol HFA (PROVENTIL HFA, VENTOLIN HFA) 90 mcg/actuation inhaler Inhale 2 Puffs as instructed every 4 hours as needed. NEEDED FOR SHORTNESS OF BREATH AND WHEEZING aspirin, enteric coated (ASPIR-81) 81 mg EC tablet Take 1 tablet by mouth once daily. No current facility-administered medications for this visit. ALLERGIES Allergen Reactions Codeine Unknown Mold Other: See Comments Vicodin [Hydrocodon* Mental Status Change REVIEW OF SYSTEMS: GENERAL: no recent change in weight, activity level at baseline. RESPIRATORY: see HPI CARDIOVASCULAR: no chest pain, no palpitations PHYSICAL EXAMINATION: VIDEO EXAM: (if completed, performed via video enabled technology) GENERAL: alert and appropriate, in no distress, well-hydrated, well nourished, and happy, smiling, interactive RESPIRATORY: breathing non-labored CHEST: equal chest rise with normal respiratory effort ASSESSMENT/PLAN: 1. Stage 4 very severe COPD by GOLD classification (HCC) - ICD9: 496, ICD10: J44.9 (primary diagnosis) - Continue Trelegy 200 - Add nebulized Budesonide twice daily as needed. - Duoneb as needed. - Discussed pulmonary rehab. Patient is agreeable. Will discuss with Dr. Sánchez. 2. Chronic hypoxemic respiratory failure (HCC) - ICD9: 518.83, 799.02, ICD10: J96.11 - continues to be complaint and benefit from supplemental O2 - 2-3L continuous - DME: Lilli I spent a total of 26 minutes on the date of the service which included preparing to see the patient, [id number] patient care, completing clinical documentation, performing a medically appropriate examination, counseling and educating the patient/family/caregiver, and ordering medications, tests, or procedures Mily Tapia APRN.CNP documented in this encounter [facility] 10-18-2024 Note HNO ID: [id number] Author: MILY TAPIA APRN.CNP Service: ? Author Type: Nurse Practitioner Type: Progress Notes Filed: 10/18/2024 13:32 Note Text: VIRTUAL VISIT PROGRESS NOTE This is a virtual visit using [employer] Video Visit. It required patient-provider interaction for the medical decision making as documented below. I have communicated my name and active licensure. The patient's identity and physical location were verified at the time of this visit. Either the patient or their legal congressional representative has been informed of the risks and benefits of -- and alternatives to -- treatment through a remote evaluation and consents to proceed with the evaluation remotely. Karli Duke is a 58 year old male seen for follow-up COPD. He has a past medical history of former 35 pack year smoker, quitting in 2016 with PMH significant for childhood asthma, very severe COPD, chronic hypoxemic respiratory failure, allergies previously on IT, SAH, GHASSAN. Has previously declined pulmonary rehab, endobronchial valve assessment and transplant evaluation. Current inhaled therapy with Trelegy Ellipta and as needed albuterol/Duoneb. THOMAS 07/2024 following hospitalization for Pneumonia. Was prescribed Duoneb which he reports has been beneficial. Overall, he reports symptoms have been stable. Currently reports an occasional productive cough which he attributes to PND d/t allergies. He is using Singulair. Rare chest tightness. Exertional dyspnea continues to be the most limiting factor. Does not leave the house as often d/t SOB limiting him. Denies any significant respiratory illnesses since his last visit. No need for steroids or antibiotics. He self monitors SPO2 and reports he stays WNL on 2L. Using Duoneb a few days a week. HISTORY REVIEWED (electronic chart updated): PAST MEDICAL HISTORY Diagnosis Date Allergic rhinitis Asthma COPD (chronic obstructive pulmonary disease) ([facility]) Very severe Dependence on continuous supplemental oxygen Other and unspecified hyperlipidemia SAH (subarachnoid hemorrhage) ([facility]) Sleep apnea Tobacco abuse Quit 2015. PAST SURGICAL HISTORY Procedure Laterality Date COLONOSCOPY FLX DX W/COLLJ SPEC WHEN PFRMD 04/10/2019 Colonoscopy OTHER ANEURYSM REPAIR 01/04/2017 [facility] PAST SURGICAL HISTORY OF cyst on tailbone FAMILY HISTORY Problem Relation Age of Onset Diabetes Mother None Father other (overdose) Sister Allergies Daughter COPD No Family History Asthma No Family History Social History Tobacco Use Smoking status: Former Current packs/day: 0.00 Average packs/day: 1 pack/day for 35.8 years (35.8 ttl pk-yrs) Types: Cigarettes Start date: 1979 Quit date: 09/06/2015 Years since quittin.1 Smokeless tobacco: Current Types: Chew Tobacco comments: No smokers in current home. Vaping Use Vaping status: Never Used Substance Use Topics Alcohol use: Yes Comment: 1 beer a night Drug use: Yes Comment: CBD gummies Current Outpatient Medications Medication Sig traZODone (DESYREL) 50 mg tablet Take 1 tablet by mouth daily at bedtime. furosemide (LASIX) 20 mg tablet 20 mg once daily. Nebulizer Accessories kit 1 Kit two times a day as needed (SOB, wheezing, cough). ipratropium-albuterol (DUONEB) 0.5 mg-3 mg(2.5 mg base)/3 mL nebu Inhale 3 mL as instructed every 6 hours as needed for wheezing/shortness of breath. MUCUS RELIEF ER 1,200 mg Ta12 Take 1 tablet by mouth two times a day. benzonatate (TESSALON PERLE) 100 mg capsule Take 1 capsule by mouth three times a day as needed for cough. busPIRone (BUSPAR) 10 mg tablet Take 1 tablet by mouth three times a day. montelukast (SINGULAIR) 10 mg tablet Take 1 tablet by mouth daily at bedtime. xcfwetkfxpe-aahgsalwt-tnycoqun (TRELEGY ELLIPTA) 200-62.5-25 mcg inhalation powder Inhale 1 Puff as instructed once daily. pantoprazole DR (PROTONIX) 40 mg tablet take 1 tablet by mouth every day ascorbic acid, vitamin C, (VITAMIN C) 250 mg tablet Take 250 mg by mouth once daily. ergocalciferol, vitamin D2, (VITAMIN D2 ORAL) Take by mouth. Vitamin E, dl, acetate, (VITAMIN E) 134 mg (200 unit) Capsule Take by mouth once daily. melatonin 10 mg chew Take by mouth. loratadine 10 mg cap Take 10 mg by mouth once daily. MULTIVITAMIN ORAL Take by mouth. States contains vitamin b,c,d albuterol HFA (PROVENTIL HFA, VENTOLIN HFA) 90 mcg/actuation inhaler Inhale 2 Puffs as instructed every 4 hours as needed. NEEDED FOR SHORTNESS OF BREATH AND WHEEZING aspirin, enteric coated (ASPIR-81) 81 mg EC tablet Take 1 tablet by mouth once daily. No current facility-administered medications for this visit. ALLERGIES Allergen Reactions Codeine Unknown Mold Other: See Comments Vicodin [Hydrocodon* Mental Status Change REVIEW OF SYSTEMS: GENERAL: no recent change in weight, activity level at baseline. RESPIRATORY: see HPI CARDIOVASCULAR: no chest pain, no palpitat (more content not included)... [facility] 08-05-2024 Telephone encounter Note Pt was ordered two weeks of Lasix 20 mg while in Hospital. Is he supposed to continue this or d/c. Was seen in office on 08/01/24. Please advise. Abida Khan MA [facility] 08-05-2024 Miscellaneous Notes Pt was ordered two weeks of Lasix 20 mg while in Hospital. Is he supposed to continue this or d/c. Was seen in office on 08/01/24. Please advise. Abida Khan MA documented in this encounter [facility] 08-01-2024 Instructions Renee Perez MA - 08/01/2024 10:24 AM EST Continue with Buspar 10 mg as directed for the anxiety. Use Trazodone 50 mg at bedtime as needed for sleep. Once you know what company you want to use for the motorized scooter, have the company fax paperwork to our office at [phone]. documented in this encounter [facility] 08-01-2024 History of Presen t illness Narrative Transitional Care Management TCM Eligibility Documentation The following information was gathered during patient outreach 07/23/2024 Date of Outreach: Outreach Attempt 1: Contact Made Date of Discharge 07/22/2024 Provider Documentation Karli Duke is a 58 year old male here today for a follow up from recent hospitalization. I have reviewed the patient's hospital course including discharge summary, discharge medications , and follow up needs with the patient and any family members present at today's visit. HPI Pt here today for a 14 day TCM. Had appt with Pulmonary today prior to visit today. Pt states he is feeling better than he did when he was in the ER. He has to get up a lot to urinate due to being on Lasix, getting up every 3 hours and when he wakes up he is sore and stiff from laying on this right side, he states he doesn't move in his sleep. He is unable to lay on Left side due to rib pain. He is using 2 L oxygen all day and night. He monitors his O2 levels occ at home, is staying above 90% most of the time. He feels his energy is decent and appetite is better. He is able to eat now. Wasn't eating much when he went to ER, was getting SOB just eating. Saw Pulmonary Mily Tapia CNP yesterday. He has completed his antibiotics and prednisone. Had CXR done yesterday that was negative, pneumonia had cleared up. He is using the inhalers and nebulizer tx prn. He is taking Singular 10 mg daily. Still retaining fluid which makes him uncomfortable but that is doing much better. Is on Lasix 20 mg daily. Anxiety & Sleep difficulty: Anxiety is doing better, manageable right now. Taking Buspar 10 mg 1 pill TID. He stated he was given Xanax while admitted and it knocked him out, slept great. He has used Melatonin to help him sleep but stated he took it one time and it must not have mixed well with one his other medications because he was trippin. He has to get up a lot to urinate due to being on Lasix, getting up every 3 hours and when he wakes up he is sore and stiff from laying on this right side, he states he doesn't move in his sleep. He is unable to lay on Left side due to rib pain. Would like to get a motorized scooter. Has not contacted any companies for a scooter yet. Having trouble walking long distances due to his SOB and COPD. [facility] Hospital d/c summary: Discharge Diagnosis (1) COPD exacerbation: Status: Acute Code(s): J44.1 - Chronic obstructive pulmonary disease with (acute) exacerbation (2) Pneumonia: Status: Acute Code(s): J18.9 - Pneumonia, unspecified organism Plan This 58-year-old gentleman is being admitted for progressively worsening shortness of breath, productive cough and worsening dyspnea on exertion for 4 weeks and diagnosed pneumonia. 1. COPD exacerbation probably exacerbated by bilateral pneumonia: Patient is being admitted on MedSurg floor. Chest x-ray and CTPA initially reviewed. No acute PE. Chronic emphysematous lungs. Mild fibrotic changes in lower lobe andconsolidation in RML, RLL and left lingular lobe. Twelve-lead EKG individually reviewed and shows sinus tachycardia at 104 bpm, QTc 426 ms. Patient is being managed on scheduled bronchodilator, IV Solu-Medrol, Mucinex, incentive spirometry and Pep. 07/21: Triple PCR for SARS-CoV-2, flu and RSV are negative and respiratory panel are negative. Urinary antigens are negative. Continue above treatment. Continue incentive spirometry. 07/22: Patient is doing well. Shortness of breath is almost resolved. Prescription given for burst therapy of prednisone, Mucinex and levofloxacin. Advised follow-up he is icu staff nurse Dr. Millie Sánchez in 2 weeks. 2. Bilateral, RML, RLL and left lingular pneumonia: Patient is started on IV ceftriaxone and azithromycin. As mentioned above. 07/22: As mentioned above 3. Chronic hypoxic respiratory failure: At home patient on 2.5 L/min. Currently 3 L/min. Continue oxygen therapy to keep pulse ox 90%. 1/19: Patient on 3 L of oxygen his baseline. 07/22 Home oxygen qualification test ordered. Currently on 3 L of oxygen. Patient also has mild leg swelling. Lasix 20 mg IV ordered. Prescription for 2weeks of Lasix 20 mg oral ordered. Follow with PCP in 2 weeks 4. Chronic anxiety: Patient on lorazepam 1 mg Q8 hourly as needed for anxiety. 07/21 changed to Xanax 0.5 mg Q8 hourly as needed for anxiety. 5. Former smoker: Patient stated he quit smoking in 2019. Patient also complained of mild gastritis symptoms. On Mylanta as needed. Pantoprazole ordered DVT, moderate to high risk: Enoxaparin 40 mg subcu daily 07/20/24 22:20 Nasal Secretion MRSA (PCR) - Final 07/20/24 23:00 Mucosa - Nasopharyngeal SARS-CoV-2, Influenza & RSV (PCR) - Final 07/20/24 23:35 Urine, Clean Catch Legionella Antigen - Final 07/20/24 23:35 Urine, Clean Catch Streptococcus pneumoniae Antigen (M - Final Imaging: Chest X-Ray 07/20/24 10:20 IMPRESSION: COPD with lower lung edema or infiltrate. Small right pleural effusion Chest CTA 07/20/24 11:24 IMPRESSION: CTA chest examination, without a demonstrated pulmonary embolism or arterial dissection. Emphysema. Bilateral pneumonia. Discharge medication reconciliation done. Discharge follow-up instructions completed. Discharge process discussed with the patient and all questions wereanswered to patient's satisfaction. Follow with PCP in 1 to 2 weeks Records were copied for continuity of care. PHYSICAL EXAMINATION BP 150/82 Pulse 96 Resp 20 Wt 68.3 kg (150 lb 9.2 oz) SpO2 94% BMI 26.67 kg/m GENERAL: well appearing, alert, in no acute distress and uses wheelchair HEART: regular rate and rhythm. No murmur, rubs or gallops. LUNGS: clear to auscultation, no wheezing, rhonchi, or crackles EXTREMITIES: bilateral edema - mild, lower legs ASSESSMENT/PLAN: 1. Hospital discharge follow-up - ICD9: V67.59, ICD10: Z09 (primary diagnosis) Improving 2. COPD with exacerbation (HCC) - ICD9: 491.21, ICD10: J44.1 Continue with Pulm Continue current medications. 3. Bacterial pneumonia - ICD9: 482.9, ICD10: J15.9 Resolved 4. JOSEPH (generalized anxiety disorder) - ICD9: 300.02, ICD10: F41.1 Continue current medications. 5. Sleeping difficulty - ICD9: 780.50, ICD10: G47.9 Start Trazodone 50 mg daily at bedtime Follow up in 3 months. He will check on needed paperwork for getting scooter I agree with the Chief Complaint, ROS, and Past Histories independently gathered by the clinical sales support advisor and the remaining scribed note accurately describes my personal service to the patient. Alberto Avelar MD The documentation for this note was completed by Renee Perez MA acting as scribe for Alberto Avelar MD. August 01, 2024 10:10 AM. Renee Perez MA documented in this encounter [facility] 08-01-2024 Note HNO ID: [id number] Author: ALBERTO AVELAR MD Service: ? Author Type: Physician Type: Progress Notes Filed: 08/01/2024 17:03 Note Text: Transitional Care Management TCM Eligibility Documentation The following information was gathered during patient outreach 07/23/2024 Date of Outreach: Outreach Attempt 1: Contact Made Date of Discharge 07/22/2024 Provider Documentation Karli Duke is a 58 year old male here today for a follow up from recent hospitalization. I have reviewed the patient's hospital course including discharge summary, discharge medications , and follow up needs with the patient and any family members present at today's visit. HPI Pt here today for a 14 day TCM. Had appt with Pulmonary today prior to visit today. Pt states he is feeling better than he did when he was in the ER. He has to get up a lot to urinate due to being on Lasix, getting up every 3 hours and when he wakes up he is sore and stiff from laying on this right side, he states he doesn't move in his sleep. He is unable to lay on Left side due to rib pain. He is using 2 L oxygen all day and night. He monitors his O2 levels occ at home, is staying above 90% most of the time. He feels his energy is decent and appetite is better. He is able to eat now. Wasn't eating much when he went to ER, was getting SOB just eating. Saw Pulmonary Mily Tapia CNP yesterday. He has completed his antibiotics and prednisone. Had CXR done yesterday that was negative, pneumonia had cleared up. He is using the inhalers and nebulizer tx prn. He is taking Singular 10 mg daily. Still retaining fluid which makes him uncomfortable but that is doing much better. Is on Lasix 20 mg daily. Anxiety AND Sleep difficulty: Anxiety is doing better, manageable right now. Taking Buspar 10 mg 1 pill TID. He stated he was given Xanax while admitted and it knocked him out, slept great. He has used Melatonin to help him sleep but stated he took it one time and it must not have mixed well with one his other medications because he was trippin. He has to get up a lot to urinate due to being on Lasix, getting up every 3 hours and when he wakes up he is sore and stiff from laying on this right side, he states he doesn't move in his sleep. He is unable to lay on Left side due to rib pain. Would like to get a motorized scooter. Has not contacted any companies for a scooter yet. Having trouble walking long distances due to his SOB and COPD. [facility] Hospital d/c summary: Discharge Diagnosis (1) COPD exacerbation: Status: Acute Code(s): J44.1 - Chronic obstructive pulmonary disease with (acute) exacerbation (2) Pneumonia: Status: Acute Code(s): J18.9 - Pneumonia, unspecified organism Plan This 58-year-old gentleman is being admitted for progressively worsening shortness of breath, productive cough and worsening dyspnea on exertion for 4 weeks and diagnosed pneumonia. 1. COPD exacerbation probably exacerbated by bilateral pneumonia: Patient is being admitted on MedSurg floor. Chest x-ray and CTPA initially reviewed. No acute PE. Chronic emphysematous lungs. Mild fibrotic changes in lower lobe andconsolidation in RML, RLL and left lingular lobe. Twelve-lead EKG individually reviewed and shows sinus tachycardia at 104 bpm, QTc 426 ms. Patient is being managed on scheduled bronchodilator, IV Solu-Medrol, Mucinex, incentive spirometry and Pep. 07/21: Triple PCR for SARS-CoV-2, flu and RSV are negative and respiratory panel are negative. Urinary antigens are negative. Continue above treatment. Continue incentive spirometry. 07/22: Patient is doing well. Shortness of breath is almost resolved. Prescription given for burst therapy of prednisone, Mucinex and levofloxacin. Advised follow-up he is icu staff nurse Dr. Millie Sánchez in 2 weeks. 2. Bilateral, RML, RLL and left lingular pneumonia: Patient is started on IV ceftriaxone and azithromycin. As mentioned above. 07/22: As mentioned above 3. Chronic hypoxic respiratory failure: At home patient on 2.5 L/min. Currently 3 L/min. Continue oxygen therapy to keep pulse ox 90%. 07/21: Patient on 3 L of oxygen his baseline. 07/22 Home oxygen qualification test ordered. Currently on 3 L of oxygen. Patient also has mild leg swelling. Lasix 20 mg IV ordered. Prescription for 2weeks of Lasix 20 mg oral ordered. Follow with PCP in 2 weeks 4. Chronic anxiety: Patient on lorazepam 1 mg Q8 hourly as needed for anxiety. 07/21 changed to Xanax 0.5 mg Q8 hourly as needed for anxiety. 5. Former smoker: Patient stated he quit smoking in 2019. Patient also complained of mild gastritis symptoms. On Mylanta as needed. Pantoprazole ordered DVT, moderate to high risk: Enoxaparin 40 mg subcu daily 07/20/24 22:20 Nasal Secretion MRSA (PCR) - Final 07/20/24 23:00 Mucosa - Nasopharyngeal SARS-CoV-2, Influenza AND RSV (PCR) - Final 07/20/24 23:35 Urine, Clean Catch Legionella Antigen - Final (more content not included)... [facility] 08-01-2024 Telephone encounter Note h [facility] 08-01-2024 Miscellaneous Notes h documented in this encounter [facility] 07-30-2024 Mily Cook APRN.CNP - 07/30/2024 1:22 PM EST Chest xray today. If Pneumonia has not resolved, will continue antibiotics. Tessalon Perles and Mucinex as needed. An order for the nebulizer will be sent to [facility]. documented in this encounter [facility] 07-30-2024 Note HNO ID: [id number] Author: MILY TAPIA APRN.CNP Service: ? Author Type: Nurse Practitioner Type: Progress Notes Filed: 07/30/2024 13:42 Note Text: Pulmonary Medicine Patients name: Karli Duke PCP: Alberto Avelar MD CC: hospital follow-up HPI: Karli Duke is a 58 year old male former 35 pack year smoker, quitting in 2015 with PMH significant for childhood asthma, very severe COPD, chronic hypoxemic respiratory failure, allergies previously on IT, SAH, GHASSAN. Has previously declined pulmonary rehab, endobronchial valve assessment and transplant evaluation. Current inhaled therapy with Trelegy Ellipta and as needed albuterol. He presents today for hospital follow-up. [facility] 02/29/2024 with relatively stable respiratory symptoms. He was hospitalized 07/20-07/22 d/t progressively worsening SOB, productive cough and worsening hypoxia. Chest xray with reported RML, RLL and left lingular pneumonia. Respiratory panel and urine antigens negative. Discharged home on Levaquin and Prednisone x5 days, along with Lasix and Mucinex. Per patient, he tested positive for Flu A. He states he completed both the Levaquin and Prednisone. Current symptoms include persistent cough with occasional clear/white sputum. Mucinex has been helpful. No hemoptysis. No wheezing. Has sinus congestion at baseline and causes PND which worsens cough. Uses Singulair and OTC severe sinus medication. Rare dyspnea at rest. Exertional dyspnea (with walking 20-30 feet) has not changed. Notes that LE edema has improved with Lasix. Urinating well. Is scheduled to see his PCP later today to follow. Overall, he feels that SOB is at baseline. Cough has been bothersome and makes it hard for him to fall asleep. Albuterol use is approximately once a day. Monitors SPO2 at home and is typically 93-96. DME: [employer] 2-3L supplemental O2 PAST MEDICAL HISTORY Diagnosis Date Allergic rhinitis Asthma COPD (chronic obstructive pulmonary disease) ([facility]) Very severe Dependence on continuous supplemental oxygen Other and unspecified hyperlipidemia SAH (subarachnoid hemorrhage) ([facility]) Sleep apnea Tobacco abuse Quit 2015. Allergies: Codeine Unknown Mold Other: See Comments Vicodin [Hydrocodon* Mental Status Change Medication List Accurate as of July 30, 2024 12:16 PM. If you have any questions, ask your nurse or doctor. CONTINUE taking these medications albuterol HFA 90 mcg/actuation inhaler Commonly known as: PROVENTIL HFA, VENTOLIN HFA Inhale 2 Puffs as instructed every 4 hours as needed. NEEDED FOR SHORTNESS OF BREATH AND WHEEZING aspirin, enteric coated 81 mg EC tablet Commonly known as: ASPIR-81 Take 1 tablet by mouth once daily. busPIRone 10 mg tablet Commonly known as: BUSPAR Take 1 tablet by mouth three times a day. fysennbqbgv-ecnyuskln-amkvjqgd 200-62.5-25 mcg inhalation powder Commonly known as: TRELEGY ELLIPTA Inhale 1 Puff as instructed once daily. loratadine 10 mg Cap melatonin 10 mg Chew montelukast 10 mg tablet Commonly known as: SINGULAIR Take 1 tablet by mouth daily at bedtime. MULTIVITAMIN ORAL pantoprazole DR 40 mg tablet Commonly known as: PROTONIX take 1 tablet by mouth every day VITAMIN C 250 mg tablet Generic drug: ascorbic acid (vitamin C) VITAMIN D2 ORAL Vitamin E (dl, acetate) 134 mg (200 unit) Capsule Commonly known as: VITAMIN E DATA: I personally reviewed and analyzed all labs, radiographs and available pulmonary function testing PFT: 08/29/2023 Spirometry indicates very severe obstruction. The increased TLC indicates hyperinflation. The RV and RV/TLC are elevated indicating air trapping. The diffusing capacity is severely reduced. The presence of a reduced lung diffusing capacity - that does not normalize when measured independent of alveolar volume (kCO) suggests a parenchymal or pulmonary vascular disorder. 02/29/2024 CT Chest: 05/20/2024 IMPRESSION: 1. Mild emphysema. 2. Slight interval increase in size of an ill-defined now 5 mm left upper lobe nodule. Close attention on follow-up imaging is advised. 3. Remainder of the nodular opacities including a 1.5 cm right upper lobe groundglass opacity appear stable. Laboratory Helper: FABIANA Transcribe Date/Time: May 22 2024 12:58P Dictated by : BIBI BOWER MD This examination was interpreted and the report reviewed and electronically signed by: BIBI BOWER MD on May 22 2024 1:04PM EST Results-Findings * * *Final Report* * * DATE OF EXAM: May 20 2024 11:37AM [facility] 0541 - CT CHEST WO IVCON / PROCEDURE REASON: Lung nodules * * * * Physician Interpretation * * * * EXAMINATION: CHEST CT WITHOUT CONTRAST CLINICAL HISTORY: Follow-up lung nodules Technique: Spiral CT acquisition of the chest from the thoracic inlet to the upper abdomen without contrast. MQ: CTCWO_6 CT Radiation dose: Integrated Dose-length product (DLP) for thi (more content not included)... [facility] 07-30-2024 History of Presen t illness Narrative Images from the original note were not included. Pulmonary Medicine Patients name: Karli Duke PCP: Alberto Avelar MD CC: hospital follow-up HPI: Karli Duke is a 58 year old male former 35 pack year smoker, quitting in 2016 with PMH significant for childhood asthma, very severe COPD, chronic hypoxemic respiratory failure, allergies previously on IT, SAH, GHASSAN. Has previously declined pulmonary rehab, endobronchial valve assessment and transplant evaluation. Current inhaled therapy with Trelegy Ellipta and as needed albuterol. He presents today for hospital follow-up. [facility] 02/29/2024 with relatively stable respiratory symptoms. He was hospitalized 07/20-07/22 d/t progressively worsening SOB, productive cough and worsening hypoxia. Chest xray with reported RML, RLL and left lingular pneumonia. Respiratory panel and urine antigens negative. Discharged home on Levaquin and Prednisone x5 days, along with Lasix and Mucinex. Per patient, he tested positive for Flu A. He states he completed both the Levaquin and Prednisone. Current symptoms include persistent cough with occasional clear/white sputum. Mucinex has been helpful. No hemoptysis. No wheezing. Has sinus congestion at baseline and causes PND which worsens cough. Uses Singulair and OTC severe sinus medication. Rare dyspnea at rest. Exertional dyspnea (with walking 20-30 feet) has not changed. Notes that LE edema has improved with Lasix. Urinating well. Is scheduled to see his PCP later today to follow. Overall, he feels that SOB is at baseline. Cough has been bothersome and makes it hard for him to fall asleep. Albuterol use is approximately once a day. Monitors SPO2 at home and is typically 93-96. DME: [employer] 2-3L supplemental O2 PAST MEDICAL HISTORY Diagnosis Date Allergic rhinitis Asthma COPD (chronic obstructive pulmonary disease) ([facility]) Very severe Dependence on continuous supplemental oxygen Other and unspecified hyperlipidemia SAH (subarachnoid hemorrhage) ([facility]) Sleep apnea Tobacco abuse Quit 2015. Allergies: Codeine Unknown Mold Other: See Comments Vicodin [Hydrocodon* Mental Status Change Medication List Accurate as of July 30, 2024 12:16 PM. If you have any questions, ask your nurse or doctor. CONTINUE taking these medications albuterol HFA 90 mcg/actuation inhaler Commonly known as: PROVENTIL HFA, VENTOLIN HFA Inhale 2 Puffs as instructed every 4 hours as needed. NEEDED FOR SHORTNESS OF BREATH AND WHEEZING aspirin, enteric coated 81 mg EC tablet Commonly known as: ASPIR-81 Take 1 tablet by mouth once daily. busPIRone 10 mg tablet Commonly known as: BUSPAR Take 1 tablet by mouth three times a day. orsqikllvbj-ylnzvxngf-frxncvmn 200-62.5-25 mcg inhalation powder Commonly known as: TRELEGY ELLIPTA Inhale 1 Puff as instructed once daily. loratadine 10 mg Cap melatonin 10 mg Chew montelukast 10 mg tablet Commonly known as: SINGULAIR Take 1 tablet by mouth daily at bedtime. MULTIVITAMIN ORAL pantoprazole DR 40 mg tablet Commonly known as: PROTONIX take 1 tablet by mouth every day VITAMIN C 250 mg tablet Generic drug: ascorbic acid (vitamin C) VITAMIN D2 ORAL Vitamin E (dl, acetate) 134 mg (200 unit) Capsule Commonly known as: VITAMIN E DATA: I personally reviewed and analyzed all labs, radiographs and available pulmonary function testing PFT: 08/29/2023 Spirometry indicates very severe obstruction. The increased TLC indicates hyperinflation. The RV and RV/TLC are elevated indicating air trapping. The diffusing capacity is severely reduced. The presence of a reduced lung diffusing capacity - that does not normalize when measured independent of alveolar volume (kCO) suggests a parenchymal or pulmonary vascular disorder. 02/29/2024 CT Chest: 05/20/2024 IMPRESSION: 1. Mild emphysema. 2. Slight interval increase in size of an ill-defined now 5 mm left upper lobe nodule. Close attention on follow-up imaging is advised. 3. Remainder of the nodular opacities including a 1.5 cm right upper lobe groundglass opacity appear stable. Laboratory Helper: PSCSadie Transcribe Date/Time: May 22 2024 12:58P Dictated by : BIBI BOWER MD This examination was interpreted and the report reviewed and electronically signed by: BIBI BOWER MD on May 22 2024 1:04PM EST Results-Findings * * *Final Report* * * DATE OF EXAM: May 20 2024 11:37AM [facility] 0541 - CT CHEST WO IVCON / PROCEDURE REASON: Lung nodules * * * * Physician Interpretation * * * * EXAMINATION: CHEST CT WITHOUT CONTRAST CLINICAL HISTORY: Follow-up lung nodules Technique: Spiral CT acquisition of the chest from the thoracic inlet to the upper abdomen without contrast. MQ: CTCWO_6 CT Radiation dose: Integrated Dose-length product (DLP) for this visit = 212 mGy*cm CT Dose Reduction Employed: Automated exposure control(AEC) and iterative recon Comparison: CT chest dated 04/24/2023 RESULT: Limitations: None. Lines, tubes, and devices: None. Lung parenchyma and airways: Upper lung zone predominant emphysematous changes. Stable ill-defined groundglass opacity in the right apex measuring approximately 1.5 cm in size (7, 36). A few additional stable scattered pulmonary nodules with congressional representative measurements as follows. Stable 4 mm right anterior upper lobe groundglass nodular opacity (7, 49). Stable 2 to 3 mm right upper lobe nodule (7, 58). Stable 3 mm calcified right lower lobe granuloma. Stable 3 mm left lower lobe nodule (7, 116). Stable 2 to 3 mm left lower lobe nodules (7, 136). A few additional stable less than 5 mm nodules. Slight interval increase in size of an ill-defined nodular opacity in the left upper lobe now measuring 5 mm (7, 64), previously 3 mm. Mild atelectatic changes. Pleural space: No pleural effusion. No pleural thickening. Lower neck, lymph nodes, and mediastinum: The imaged thyroid gland is normal. No lymphadenopathy in the supraclavicular, axillary, mediastinal, or hilar regions. Heart, pericardium, and thoracic vessels: The thoracic aorta and main pulmonary artery are normal in caliber. The cardiac chambers are normal in size. Coronary artery atherosclerotic calcifications are noted, although the study is not optimized for coronary assessment. No pericardial effusion or thickening. Bones and soft tissues: Degenerative changes. Upper abdomen: Hepatic steatosis. Atherosclerotic calcification of the vasculature. No additional abnormality in the imaged upper abdomen within the limits of noncontrast technique. Localizer images: No additional findings. IMMUNIZATIONS Prevnar - xx Pneumovax 23 - xx Influenza - 07/2024 COVID-19 - xx RSV- xx Review of Systems Constitutional: Negative for activity change, appetite change, fever and unexpected weight change. HENT: Positive for congestion and postnasal drip. Negative for mouth sores and sinus pain. Respiratory: Positive for cough and shortness of breath. Negative for chest tightness and wheezing. Cardiovascular: Positive for leg swelling. Negative for chest pain and palpitations. Neurological: Negative for dizziness, light-headedness and headaches. BP 122/72 Pulse 85 Resp 16 SpO2 95% Physical Exam Vitals reviewed. Constitutional: General: He is not in acute distress. Appearance: Normal appearance. HENT: Head: Normocephalic. Nose: No rhinorrhea. Mouth/Throat: Mouth: Mucous membranes are moist. Pharynx: No oropharyngeal exudate. Cardiovascular: Rate and Rhythm: Normal rate and regular rhythm. Heart sounds: Normal heart sounds. Pulmonary: Effort: Pulmonary effort is normal. No accessory muscle usage or respiratory distress. Breath sounds: Decreased breath sounds present. Comments: Decreased b/l breath sounds Musculoskeletal: Right lower leg: Edema present. Left lower leg: Edema present. Comments: 2+ b/l LE edema Lymphadenopathy: Cervical: No cervical adenopathy. Skin: General: Skin is warm and dry. Capillary Refill: Capillary refill takes less than 2 seconds. Neurological: General: No focal deficit present. Mental Status: He is alert. ASSESSMENT/PLAN: 1. Hospital discharge follow-up - ICD9: V67.59, ICD10: Z09 (primary diagnosis) 2. Pneumonia of both lower lobes due to infectious organism - ICD9: 486, ICD10: J18.9 - hospitalized 07/20-07/22 - currently completed Prednisone burst and Levaquin - chest xray requested from [facility] - repeat chest xray today to ensure resolution of pneumonia. Symptomatically improved. - XR CHEST 2V FRONTAL/LAT 3. Stage 4 very severe COPD by GOLD classification (HCC) - ICD9: 496, ICD10: J44.9 - continue Trelegy Ellipta daily - Albuterol as needed - will add Duoneb PRN, orders to be sent to [facility] - NEBULIZER, WITH COMPRESSOR - NEBULIZER ACCESSORIES KIT - IPRATROPIUM 0.5 MG-ALBUTEROL 3 MG (2.5 MG BASE)/3 ML NEBULIZATION SOLN 4. Dependence on continuous supplemental oxygen - ICD9: V46.2, ICD10: Z99.81 - continues to be compliant and benefit from supplemental O2 use - home self reports of SPO2 stable F/u 3 months, pending chest xray Portions of this documentation were copied and pasted from previous office visit notes in order to provide a cohesive continuity of the history. The note has been reviewed and edited and updated as necessary. Mily Tapia APRN.STACY I spent a total of 35 minutes on the date of the service which included preparing to see the patient, [id number] patient care, completing clinical documentation, performing a medically appropriate examination, counseling and educating the patient/family/caregiver, and ordering medications, tests, or procedures. documented in this encounter [facility] 07-23-2024 Note HNO ID: [id number] Author: ALBERTO AVELAR MD Service: ? Author Type: Physician Type: Progress Notes Filed: 07/23/2024 16:51 Note Text: Noted Alberto Avelar MD [facility] 07-23-2024 History of Presen t illness Narrative Noted Alberto Avelar MD TRANSITION CARE MANAGEMENT (TCM) INITIAL CONTACT Glass Melt Operator Outreach Provider Action/FYI: Pt wrote into the office via [email or web address] regarding recent hospital admission for pneumonia. Sent in his d/c paperwork with an update regarding new medications. Office received d/c paperwork with an update to f/u with Pulmonary and PCP within 2 weeks. To see Primary Care for edema and started on Lasix. Pt notified of this. Pt unsure of what he needs to do. Pt was advised to schedule a visit to f/u at least. He does have a message out to Pulmonary as well, and is now scheduled. Pt is scheduled with PCP on 07/30/24 in the afternoon. He's also scheduled to see Pulmonary prior to his visit with PCP same day. Initial contact with patient post discharge, spoke to patient, via [email or web address]. Patient identified by name and . TRANSITION CARE MANAGEMENT INITIAL OUTREACH DOCUMENTATION: 07/23/2024 Date of Outreach: Outreach Attempt 1: Contact Made Date of Discharge 07/22/2024 SUMMARY: -Pt discharged from [facility] on 07/22/24. -Admitted for: Discharge Diagnosis (1) COPD exacerbation: Status: Acute Code(s): J44.1 - Chronic obstructive pulmonary disease with (acute) exacerbation (2) Pneumonia: Status: Acute Code(s): J18.9 - Pneumonia, unspecified organism Plan This 58-year-old gentleman is being admitted for progressively worsening shortness of breath, productive cough and worsening dyspnea on exertion for 4 weeks and diagnosed pneumonia. 1. COPD exacerbation probably exacerbated by bilateral pneumonia: Patient is being admitted on MedSurg floor. Chest x-ray and CTPA initially reviewed. No acute PE. Chronic emphysematous lungs. Mild fibrotic changes in lower lobe andconsolidation in RML, RLL and left lingular lobe. Twelve-lead EKG individually reviewed and shows sinus tachycardia at 104 bpm, QTc 426 ms. Patient is being managed on scheduled bronchodilator, IV Solu-Medrol, Mucinex, incentive spirometry and Pep. 07/21: Triple PCR for SARS-CoV-2, flu and RSV are negative and respiratory panel are negative. Urinary antigens are negative. Continue above treatment. Continue incentive spirometry. 07/22: Patient is doing well. Shortness of breath is almost resolved. Prescription given for burst therapy of prednisone, Mucinex and levofloxacin. Advised follow-up he is icu staff nurse Dr. Millie Sánchez in 2 weeks. 2. Bilateral, RML, RLL and left lingular pneumonia: Patient is started on IV ceftriaxone and azithromycin. As mentioned above. 07/22: As mentioned above 3. Chronic hypoxic respiratory failure: At home patient on 2.5 L/min. Currently 3 L/min. Continue oxygen therapy to keep pulse ox 90%. 07/21: Patient on 3 L of oxygen his baseline. 07/22 Home oxygen qualification test ordered. Currently on 3 L of oxygen. Patient also has mild leg swelling. Lasix 20 mg IV ordered. Prescription for 2weeks of Lasix 20 mg oral ordered. Follow with PCP in 2 weeks 4. Chronic anxiety: Patient on lorazepam 1 mg Q8 hourly as needed for anxiety. 07/21 changed to Xanax 0.5 mg Q8 hourly as needed for anxiety. 5. Former smoker: Patient stated he quit smoking in 2019. Patient also complained of mild gastritis symptoms. On Mylanta as needed. Pantoprazole ordered DVT, moderate to high risk: Enoxaparin 40 mg subcu daily 07/20/24 22:20 Nasal Secretion MRSA (PCR) - Final 07/20/24 23:00 Mucosa - Nasopharyngeal SARS-CoV-2, Influenza & RSV (PCR) - Final 07/20/24 23:35 Urine, Clean Catch Legionella Antigen - Final 07/20/24 23:35 Urine, Clean Catch Streptococcus pneumoniae Antigen (M - Final Imaging: Chest X-Ray 07/20/24 10:20 IMPRESSION: COPD with lower lung edema or infiltrate. Small right pleural effusion Chest CTA 07/20/24 11:24 IMPRESSION: CTA chest examination, without a demonstrated pulmonary embolism or arterial dissection. Emphysema. Bilateral pneumonia. Discharge medication reconciliation done. Discharge follow-up instructions completed. Discharge process discussed with the patient and all questions wereanswered to patient's satisfaction. Follow with PCP in 1 to 2 weeks Do you have a hospital follow up appointment with your PCP? Appointment on 07/30/[address] Avelar. Yes. Remind patient of appointment date, time, and location. If not within 14 calendar days of discharge - please reschedule accordingly. MEDICATIONS: Many patients have questions or concerns about their medications once they are home. Were you prescribed any new medications? If yes, what are those medications? Levofloxacin 500 mg po daily #5 days, Prednisone 20 mg 40 mg daily x 5 days, and Lasix 20 mg po daily x 2 weeks. Were you told to hold any medications? No Were any of your medications discontinued? No Do you have any questions about getting or taking your medications? No - pt does note in message that he's unsure who he should be follow up with. Pt was notified to make appt and this can be discussed. Your discharge instructions/After visit Summary (AVS) are important in guiding you through the recovery process. Is there anything I might help you understand? No Do you have all the necessary equipment and supplies at home? Yes Medical records from recent hospitalization: Care Everywhere/[employer]. Abida Khan MA documented in this encounter [facility] 07-23-2024 Telephone encounter Note Pt agreeable to appt's as scheduled. Abida Khan MA [facility] 07-23-2024 Miscellaneous Notes Pt agreeable to appt's as scheduled. Abida Khan MA Pt was already scheduled with PCP on 07/30/24. Advised pt to keep appt with PCP and Pulmonary as scheduled. Completed TCM note and routed to PCP. Abida Khan MA Starting TCM process as pt reached out to office about hospital visit. Per d/c pt to f/u with PCP's office in 1-2 weeks. Abida Khan MA documented in this encounter [facility] 07-23-2024 Telephone encounter Note Pt was already scheduled with PCP on 07/30/24. Advised pt to keep appt with PCP and Pulmonary as scheduled. Completed TCM note and routed to PCP. Abida Khan MA [facility] 07-23-2024 Note HNO ID: [id number] Author: ABIDA KHAN MA Service: ? Author Type: Glass Melt Operator Type: Progress Notes Filed: 07/23/2024 16:51 Note Text: TRANSITION CARE MANAGEMENT (TCM) INITIAL CONTACT Glass Melt Operator Outreach Provider Action/FYI: Pt wrote into the office via [email or web address] regarding recent hospital admission for pneumonia. Sent in his d/c paperwork with an update regarding new medications. Office received d/c paperwork with an update to f/u with Pulmonary and PCP within 2 weeks. To see Primary Care for edema and started on Lasix. Pt notified of this. Pt unsure of what he needs to do. Pt was advised to schedule a visit to f/u at least. He does have a message out to Pulmonary as well, and is now scheduled. Pt is scheduled with PCP on 07/30/24 in the afternoon. He's also scheduled to see Pulmonary prior to his visit with PCP same day. Initial contact with patient post discharge, spoke to patient, via [email or web address]. Patient identified by name and . TRANSITION CARE MANAGEMENT INITIAL OUTREACH DOCUMENTATION: 07/23/2024 Date of Outreach: Outreach Attempt 1: Contact Made Date of Discharge 07/22/2024 SUMMARY: -Pt discharged from [facility] on 07/22/24. -Admitted for: Discharge Diagnosis (1) COPD exacerbation: Status: Acute Code(s): J44.1 - Chronic obstructive pulmonary disease with (acute) exacerbation (2) Pneumonia: Status: Acute Code(s): J18.9 - Pneumonia, unspecified organism Plan This 58-year-old gentleman is being admitted for progressively worsening shortness of breath, productive cough and worsening dyspnea on exertion for 4 weeks and diagnosed pneumonia. 1. COPD exacerbation probably exacerbated by bilateral pneumonia: Patient is being admitted on MedSurg floor. Chest x-ray and CTPA initially reviewed. No acute PE. Chronic emphysematous lungs. Mild fibrotic changes in lower lobe andconsolidation in RML, RLL and left lingular lobe. Twelve-lead EKG individually reviewed and shows sinus tachycardia at 104 bpm, QTc 426 ms. Patient is being managed on scheduled bronchodilator, IV Solu-Medrol, Mucinex, incentive spirometry and Pep. 07/21: Triple PCR for SARS-CoV-2, flu and RSV are negative and respiratory panel are negative. Urinary antigens are negative. Continue above treatment. Continue incentive spirometry. 07/22: Patient is doing well. Shortness of breath is almost resolved. Prescription given for burst therapy of prednisone, Mucinex and levofloxacin. Advised follow-up he is icu staff nurse Dr. Millie Sánchez in 2 weeks. 2. Bilateral, RML, RLL and left lingular pneumonia: Patient is started on IV ceftriaxone and azithromycin. As mentioned above. 07/22: As mentioned above 3. Chronic hypoxic respiratory failure: At home patient on 2.5 L/min. Currently 3 L/min. Continue oxygen therapy to keep pulse ox 90%. 07/21: Patient on 3 L of oxygen his baseline. 07/22 Home oxygen qualification test ordered. Currently on 3 L of oxygen. Patient also has mild leg swelling. Lasix 20 mg IV ordered. Prescription for 2weeks of Lasix 20 mg oral ordered. Follow with PCP in 2 weeks 4. Chronic anxiety: Patient on lorazepam 1 mg Q8 hourly as needed for anxiety. 07/21 changed to Xanax 0.5 mg Q8 hourly as needed for anxiety. 5. Former smoker: Patient stated he quit smoking in 2019. Patient also complained of mild gastritis symptoms. On Mylanta as needed. Pantoprazole ordered DVT, moderate to high risk: Enoxaparin 40 mg subcu daily 07/20/24 22:20 Nasal Secretion MRSA (PCR) - Final 07/20/24 23:00 Mucosa - Nasopharyngeal SARS-CoV-2, Influenza AND RSV (PCR) - Final 07/20/24 23:35 Urine, Clean Catch Legionella Antigen - Final 07/20/24 23:35 Urine, Clean Catch Streptococcus pneumoniae Antigen (M - Final Imaging: Chest X-Ray 07/20/24 10:20 IMPRESSION: COPD with lower lung edema or infiltrate. Small right pleural effusion Chest CTA 07/20/24 11:24 IMPRESSION: CTA chest examination, without a demonstrated pulmonary embolism or arterial dissection. Emphysema. Bilateral pneumonia. Discharge medication reconciliation done. Discharge follow-up instructions completed. Discharge process discussed with the patient and all questions wereanswered to patient's satisfaction. Follow with PCP in 1 to 2 weeks Do you have a hospital follow up appointment with your PCP? Appointment on 07/30/[address] Avelar. Yes. Remind patient of appointment date, time, and location. If not within 14 calendar days of discharge - please reschedule accordingly. MEDICATIONS: Many patients have questions or concerns about their medications once they are home. Were you prescribed any new medications? If yes, what are those medications? Levofloxacin 500 mg po daily #5 days, Prednisone 20 mg 40 mg daily x 5 days, and Lasix 20 mg po daily x 2 weeks. Were you told to hold any medications? No Were any of your medications discontinued? No Do you have any questions about getting or taking your medicatio (more content not included)... [facility] 07-23-2024 Telephone encounter Note Starting TCM process as pt reached out to office about hospital visit. Per d/c pt to f/u with PCP's office in 1-2 weeks. Abida Khan MA [facility] 07-23-2024 Note Patient Outreach (FA MPWS) KARLI DUKE ([id number]) 1965 M Date Time Provider Department 07/23/24 ALBERTO AVELAR During your visit today, we recorded the following information about you: Abida Khan MA 07/23/2024 4:51 PM Signed TRANSITION CARE MANAGEMENT (TCM) INITIAL CONTACT Glass Melt Operator Outreach Provider Action/I: Pt wrote into the office via [email or web address] regarding recent hospital admission for pneumonia. Sent in his d/c paperwork with an update regarding new medications. Office received d/c paperwork with an update to f/u with Pulmonary and PCP within 2 weeks. To see Primary Care for edema and started on Lasix. Pt notified of this. Pt unsure of what he needs to do. Pt was advised to schedule a visit to f/u at least. He does have a message out to Pulmonary as well, and is now scheduled. Pt is scheduled with PCP on 07/30/24 in the afternoon. He's also scheduled to see Pulmonary prior to his visit with PCP same day. Initial contact with patient post discharge, spoke to patient, via [employer]. Patient identified by name and . TRANSITION CARE MANAGEMENT INITIAL OUTREACH DOCUMENTATION: 07/23/2024 Date of Outreach: Outreach Attempt 1: Contact Made Date of Discharge 07/22/2024 SUMMARY: -Pt discharged from [facility] on 07/22/24. -Admitted for: Discharge Diagnosis (1) COPD exacerbation: Status: Acute Code(s): J44.1 - Chronic obstructive pulmonary disease with (acute) exacerbation (2) Pneumonia: Status: Acute Code(s): J18.9 - Pneumonia, unspecified organism Plan This 58-year-old gentleman is being admitted for progressively worsening shortness of breath, productive cough and worsening dyspnea on exertion for 4 weeks and diagnosed pneumonia. 1. COPD exacerbation probably exacerbated by bilateral pneumonia: Patient is being admitted on MedSurg floor. Chest x-ray and CTPA initially reviewed. No acute PE. Chronic emphysematous lungs. Mild fibrotic changes in lower lobe andconsolidation in RML, RLL and left lingular lobe. Twelve-lead EKG individually reviewed and shows sinus tachycardia at 104 bpm, QTc 426 ms. Patient is being managed on scheduled bronchodilator, IV Solu-Medrol, Mucinex, incentive spirometry and Pep. 07/21: Triple PCR for SARS-CoV-2, flu and RSV are negative and respiratory panel are negative. Urinary antigens are negative. Continue above treatment. Continue incentive spirometry. 07/22: Patient is doing well. Shortness of breath is almost resolved. Prescription given for burst therapy of prednisone, Mucinex and levofloxacin. Advised follow-up he is icu staff nurse Dr. Millie Sánchez in 2 weeks. 2. Bilateral, RML, RLL and left lingular pneumonia: Patient is started on IV ceftriaxone and azithromycin. As mentioned above. 07/22: As mentioned above 3. Chronic hypoxic respiratory failure: At home patient on 2.5 L/min. Currently 3 L/min. Continue oxygen therapy to keep pulse ox 90%. 07/21: Patient on 3 L of oxygen his baseline. 07/22 Home oxygen qualification test ordered. Currently on 3 L of oxygen. Patient also has mild leg swelling. Lasix 20 mg IV ordered. Prescription for 2weeks of Lasix 20 mg oral ordered. Follow with PCP in 2 weeks 4. Chronic anxiety: Patient on lorazepam 1 mg Q8 hourly as needed for anxiety. 07/21 changed to Xanax 0.5 mg Q8 hourly as needed for anxiety. 5. Former smoker: Patient stated he quit smoking in 2019. Patient also complained of mild gastritis symptoms. On Mylanta as needed. Pantoprazole ordered DVT, moderate to high risk: Enoxaparin 40 mg subcu daily 07/20/24 22:20 Nasal Secretion MRSA (PCR) - Final 07/20/24 23:00 Mucosa - Nasopharyngeal SARS-CoV-2, Influenza AND RSV (PCR) - Final 07/20/24 23:35 Urine, Clean Catch Legionella Antigen - Final 07/20/24 23:35 Urine, Clean Catch Streptococcus pneumoniae Antigen (M - Final Imaging: Chest X-Ray 07/20/24 10:20 IMPRESSION: COPD with lower lung edema or infiltrate. Small right pleural effusion Chest CTA 07/20/24 11:24 IMPRESSION: CTA chest examination, without a demonstrated pulmonary embolism or arterial dissection. Emphysema. Bilateral pneumonia. Discharge medication reconciliation done. Discharge follow-up instructions completed. Discharge process discussed with the patient and all questions wereanswered to patient's satisfaction. Follow with PCP in 1 to 2 weeks Do you have a hospital follow up appointment with your PCP? Appointment on 07/30/[address] Avelar. Yes. Remind patient of appointment date, time, and location. If not within 14 calendar days of discharge - please reschedule accordingly. MEDICATIONS: Many patients have questions or concerns about their medications once they are home. Were you prescribed any new medications? If yes, what are those medications? Levofloxacin 500 mg po daily #5 days, Prednisone 20 mg 40 mg daily x 5 days, and Lasix 20 mg (more content not included)... [facility] 07-22-2024 Note [facility] Medical Records Department [address] [place] [address] Discharge Summary 07/22/24 0948 MR#: [id number] Acct: [id number] Name: KARLI DUKE Rep #: [id number] : 1965 58 From: Colton Gandhi MD PCP: Dr. Alberto Avelar MD Status:ADM IN Location: [facility] [id number] Providers Date of Admission: 07/20/24 Date of Discharge: 07/22/24 Primary Care Physician: Dr. Alberto Avelar MD Reason For Visit: BILATERAL PNEUMONIA, COPD EXACERBATION Diagnosis Discharge Diagnosis (1) COPD exacerbation: Status: Acute Code(s): J44.1 - Chronic obstructive pulmonary disease with (acute) exacerbation (2) Pneumonia: Status: Acute Code(s): J18.9 - Pneumonia, unspecified organism Plan This 58-year-old gentleman is being admitted for progressively worsening shortness of breath, productive cough and worsening dyspnea on exertion for 4 weeks and diagnosed pneumonia. 1. COPD exacerbation probably exacerbated by bilateral pneumonia: Patient is being admitted on MedSur floor. Chest x-ray and CTPA initially reviewed. No acute PE. Chronic emphysematous lungs. Mild fibrotic changes in lower lobe and consolidation in RML, RLL and left lingular lobe. Twelve- lead EKG individually reviewed and shows sinus tachycardia at 104 bpm, QTc 426 ms. Patient is being managed on scheduled bronchodilator, IV Solu-Medrol, Mucinex, incentive spirometry and Pep. 07/21: Triple PCR for SARS-CoV-2, flu and RSV are negative and respiratory panel are negative. Urinary antigens are negative. Continue above treatment. Continue incentive spirometry. 07/22: Patient is doing well. Shortness of breath is almost resolved. Prescription given for burst therapy of prednisone, Mucinex and levofloxacin. Advised follow-up he is icu staff nurse Dr. Millie Sánchez in 2 weeks. 2. Bilateral, RML, RLL and left lingular pneumonia: Patient is started on IV ceftriaxone and azithromycin. As mentioned above. 07/22: As mentioned above 3. Chronic hypoxic respiratory failure: At home patient on 2.5 L/min. Currently 3 L/min. Continue oxygen therapy to keep pulse ox 90%. 07/21: Patient on 3 L of oxygen his baseline. 07/22 Home oxygen qualification test ordered. Currently on 3 L of oxygen. Patient also has mild leg swelling. Lasix 20 mg IV ordered. Prescription for 2 weeks of Lasix 20 mg oral ordered. Follow with PCP in 2 weeks 4. Chronic anxiety: Patient on lorazepam 1 mg Q8 hourly as needed for anxiety. 07/21 changed to Xanax 0.5 mg Q8 hourly as needed for anxiety. 5. Former smoker: Patient stated he quit smoking in 2019. Patient also complained of mild gastritis symptoms. On Mylanta as needed. Pantoprazole ordered DVT, moderate to high risk: Enoxaparin 40 mg subcu daily. Discharge medication reconciliation done. Discharge follow-up instructions completed. Discharge process discussed with the patient and all questions were answered to patient's satisfaction. Follow with PCP in 1 to 2 weeks Total time spent, exact 35 minutes on discharge meds reconciliation, examination, coordination of care with nurses and ancillary staff, review of imaging and blood test and discussion with the patient on follow-up instructions. Living will/advanced directive/end of life care: Patient does not have living will or advanced directive. He does not have daycare power of transactional attorney for health. His presented ED is next to kin. After discussion of benefits/risks procedures involved with full code, DNR CC arrest and DNR CC, the patient opted for full code. Patient does want artificial life support including intubation, tube feed, ventilator and/chest compression, central venous catheter, vasopressor and DC shock if needed Microbiology Past 72 Hours 07/20/24 22:20 Nasal Secretion MRSA (PCR) - Final 07/20/24 23:00 Mucosa - Nasopharyngeal SARS-CoV-2, Influenza RSV (PCR) - Final 07/20/24 23:35 Urine, Clean Catch Legionella Antigen - Final 07/20/24 23:35 Urine, Clean Catch Streptococcus pneumoniae Antigen (M - Final Laboratory Results 07/21/24 04:09: WBC 16.8 H, RBC 4.26 L, Hgb 13.4, Hct 39.6 L, MCV 93.0, MCH 31.5, MCHC 33.8, RDW Std Deviation 41.7, RDW Coeff of [place] 12.2, Plt Count 294, MPV 9.0, Immature Gran % (Auto) 0.500, Neut % (Auto) 91.9 H, Lymph % (Auto) 4.9 L, [place] % (Auto) 2.6, Eos % (Auto) 0.0, Baso % (Auto) 0.1, A bsolute Neuts (auto) 15.4 H, Absolute Lymphs (auto) 0.83, Nucleated RBC % 0, Sodium 136, Potassium 4.2, Chloride 104, Carbon Dioxide 28.0, Anion Gap 4 L, BUN 13, Creatinine 0.67 L, Estim Creat Clear Calc 99.08, Est GFR (MDRD) Af Amer 158, Est GFR (MDRD) Non-Af 130, BUN/Creatinine Ratio 19.4, G lucose 168 H, Calcium 9.4 Clinical Impression(s) from Imaging Studies Chest X-Ray 07/20/24 10:20 IMPRESSION: COPD with lower lung edema or infiltrate. Small right pleural effusion Chest CTA 07/20/24 11:24 IMPRESSION: CTA chest examination, (more content not included)... [facility] 07-02-2024 Telephone encounter Note Pt should have appt to discuss need for mobility chair. Notified of this via [employer]. Renee Perez MA [facility] 07-02-2024 Miscellaneous Notes Pt should have appt to discuss need for mobility chair. Notified of this via [employer]. Renee Perez MA documented in this encounter [facility] 06-21-2024 Telephone encounter Note Called patient. C/o increased chest congestion and tightness with cough. Able to produce dark green sputum- difficulty catching breath after coughing. Occasional wheezing. He has these sx frequently, but he reports they often resolve after 1-2 days. He has noticed the increase in sx for the last 4 days. Denies fever, chills, myalgias, headaches. [facility] is preferred. THOMAS 02/29/24 Yulisa Keith LPN [facility] 06-21-2024 Miscellaneous Notes Called patient. C/o increased chest congestion and tightness with cough. Able to produce dark green sputum- difficulty catching breath after coughing. Occasional wheezing. He has these sx frequently, but he reports they often resolve after 1-2 days. He has noticed the increase in sx for the last 4 days. Denies fever, chills, myalgias, headaches. [facility] is preferred. THOMAS 02/29/24 Yulisa Keith LPN documented in this encounter [facility] 06-21-2024 Telephone encounter Note Please see [email or web address] message. [facility] 06-21-2024 Miscellaneous Notes Please see [email or web address] message. documented in this encounter [facility] 06-18-2024 History of Presen t illness Narrative Telemedicine Visit - Distance Health Virtual Visit Note Patient seen on [employer] Video Visit platform. Location of patient: [place] I have communicated my name and active licensure. The patient's identity and physical location were verified at the time of this visit. Either the patient or their legal congressional representative has been informed of the risks and benefits of -- and alternatives to -- treatment through a remote evaluation and consents to proceed with the evaluation remotely. History of Present Illness Karli Duke is a 58 year old male who presents for medication follow-up. Patient is following with pulmonology for history of lung nodules, severe COPD. He is using his inhalers as prescribed. He is on continuous oxygen. History of anxiety. He is prescribed BuSpar 10 mg 3 times daily. Patient only using BuSpar twice daily. Overall feels well-controlled. Noticed that he could take 3 times a day if needing. He states that yesterday he was anxious about needing to come into the office today. His COPD causes a lot of his anxiety. He gets very short of breath with short distances. Our building has a handicap parking spot but it is far from the building. He likes going to the specially building as they have closer parking, wheelchairs. Would like to continue current dose. PAST MEDICAL HISTORY Diagnosis Date Allergic rhinitis Asthma COPD (chronic obstructive pulmonary disease) (HCC) Very severe Dependence on continuous supplemental oxygen Other and unspecified hyperlipidemia SAH (subarachnoid hemorrhage) (HCC) Sleep apnea Tobacco abuse Quit 2015. PAST SURGICAL HISTORY Procedure Laterality Date COLONOSCOPY FLX DX W/COLLJ SPEC WHEN PFRMD 04/10/2019 Colonoscopy OTHER ANEURYSM REPAIR 01/04/2017 [facility] PAST SURGICAL HISTORY OF cyst on tailbone FAMILY HISTORY Problem Relation Age of Onset Diabetes Mother None Father other (overdose) Sister Allergies Daughter COPD No Family History Asthma No Family History Social History Tobacco Use Smoking status: Former Current packs/day: 0.00 Average packs/day: 1 pack/day for 35.8 years (35.8 ttl pk-yrs) Types: Cigarettes Start date: 1979 Quit date: 09/06/2015 Years since quittin.7 Smokeless tobacco: Current Types: Chew Tobacco comments: No smokers in current home. Vaping Use Vaping status: Never Used Substance Use Topics Alcohol use: Yes Comment: 1 beer a night Drug use: Yes Comment: CBD gummies Current Outpatient Medications Medication Sig busPIRone (BUSPAR) 10 mg tablet Take 1 tablet by mouth three times a day. montelukast (SINGULAIR) 10 mg tablet Take 1 tablet by mouth daily at bedtime. nphbfkrypmd-zycymqazt-yfvseqkq (TRELEGY ELLIPTA) 200-62.5-25 mcg inhalation powder Inhale 1 Puff as instructed once daily. pantoprazole DR (PROTONIX) 40 mg tablet take 1 tablet by mouth every day ascorbic acid, vitamin C, (VITAMIN C) 250 mg tablet Take 250 mg by mouth once daily. ergocalciferol, vitamin D2, (VITAMIN D2 ORAL) Take by mouth. Vitamin E, dl, acetate, (VITAMIN E) 134 mg (200 unit) Capsule Take by mouth once daily. melatonin 10 mg chew Take by mouth. loratadine 10 mg cap Take 10 mg by mouth once daily. MULTIVITAMIN ORAL Take by mouth. States contains vitamin b,c,d albuterol HFA (PROVENTIL HFA, VENTOLIN HFA) 90 mcg/actuation inhaler Inhale 2 Puffs as instructed every 4 hours as needed. NEEDED FOR SHORTNESS OF BREATH AND WHEEZING aspirin, enteric coated (ASPIR-81) 81 mg EC tablet Take 1 tablet by mouth once daily. No current facility-administered medications for this visit. ALLERGIES Allergen Reactions Codeine Unknown Environmental [Othe* Other: See Comments Molds and grasses as verified by skin testing Vicodin [Hydrocodon* Mental Status Change Video Exam (Examination performed via Video enabled technology) General appearance: Alert, oriented, pleasant, in NAD :Yes Ill appearing :No Lethargic appearing :No Respiratory distress :No ASSESSMENT/PLAN: 1. Anxiousness - ICD9: 300.00, ICD10: F41.9 (primary diagnosis) - Stable, continue Buspar as prescribed - BUSPIRONE 10 MG TABLET 2. Stage 4 very severe COPD by GOLD classification (HCC) - ICD9: 496, ICD10: J44.9 - Continue with following with pulmonology. 3. Screening for prostate cancer - ICD9: V76.44, ICD10: Z12.5 - PSA/PROSTATE SPECIFIC ANTIGEN SCREENING 4. Screening for lipid disorders - ICD9: V77.91, ICD10: Z13.220 - LIPID PANEL, NONFASTING 5. Screening for diabetes mellitus - ICD9: V77.1, ICD10: Z13.1 - COMPREHENSIVE METABOLIC PANEL PLAN: - Red flags discussed for need for in person care - All questions answered -Reminded patient that he needs to be seen yearly. Gurmeet Tao APRN.STACY documented in this encounter [facility] 06-18-2024 Note HNO ID: [id number] Author: GURMEET TAO APRN.CNP Service: ? Author Type: Nurse Practitioner Type: Progress Notes Filed: 06/18/2024 13:44 Note Text: Telemedicine Visit - Distance Health Virtual Visit Note Patient seen on [employer] Video Visit platform. Location of patient: [place] I have communicated my name and active licensure. The patient's identity and physical location were verified at the time of this visit. Either the patient or their legal congressional representative has been informed of the risks and benefits of -- and alternatives to -- treatment through a remote evaluation and consents to proceed with the evaluation remotely. History of Present Illness Karli Duke is a 58 year old male who presents for medication follow-up. Patient is following with pulmonology for history of lung nodules, severe COPD. He is using his inhalers as prescribed. He is on continuous oxygen. History of anxiety. He is prescribed BuSpar 10 mg 3 times daily. Patient only using BuSpar twice daily. Overall feels well-controlled. Noticed that he could take 3 times a day if needing. He states that yesterday he was anxious about needing to come into the office today. His COPD causes a lot of his anxiety. He gets very short of breath with short distances. Our building has a handicap parking spot but it is far from the building. He likes going to the specially building as they have closer parking, wheelchairs. Would like to continue current dose. PAST MEDICAL HISTORY Diagnosis Date Allergic rhinitis Asthma COPD (chronic obstructive pulmonary disease) (HCC) Very severe Dependence on continuous supplemental oxygen Other and unspecified hyperlipidemia SAH (subarachnoid hemorrhage) (HCC) Sleep apnea Tobacco abuse Quit 2015. PAST SURGICAL HISTORY Procedure Laterality Date COLONOSCOPY FLX DX W/COLLJ SPEC WHEN PFRMD 04/10/2019 Colonoscopy OTHER ANEURYSM REPAIR 01/04/2017 [facility] PAST SURGICAL HISTORY OF cyst on tailbone FAMILY HISTORY Problem Relation Age of Onset Diabetes Mother None Father other (overdose) Sister Allergies Daughter COPD No Family History Asthma No Family History Social History Tobacco Use Smoking status: Former Current packs/day: 0.00 Average packs/day: 1 pack/day for 35.8 years (35.8 ttl pk-yrs) Types: Cigarettes Start date: 1979 Quit date: 09/06/2015 Years since quittin.7 Smokeless tobacco: Current Types: Chew Tobacco comments: No smokers in current home. Vaping Use Vaping status: Never Used Substance Use Topics Alcohol use: Yes Comment: 1 beer a night Drug use: Yes Comment: CBD gummies Current Outpatient Medications Medication Sig busPIRone (BUSPAR) 10 mg tablet Take 1 tablet by mouth three times a day. montelukast (SINGULAIR) 10 mg tablet Take 1 tablet by mouth daily at bedtime. zrzuqlpzzfy-prdgvzhgg-oqefuktu (TRELEGY ELLIPTA) 200-62.5-25 mcg inhalation powder Inhale 1 Puff as instructed once daily. pantoprazole DR (PROTONIX) 40 mg tablet take 1 tablet by mouth every day ascorbic acid, vitamin C, (VITAMIN C) 250 mg tablet Take 250 mg by mouth once daily. ergocalciferol, vitamin D2, (VITAMIN D2 ORAL) Take by mouth. Vitamin E, dl, acetate, (VITAMIN E) 134 mg (200 unit) Capsule Take by mouth once daily. melatonin 10 mg chew Take by mouth. loratadine 10 mg cap Take 10 mg by mouth once daily. MULTIVITAMIN ORAL Take by mouth. States contains vitamin b,c,d albuterol HFA (PROVENTIL HFA, VENTOLIN HFA) 90 mcg/actuation inhaler Inhale 2 Puffs as instructed every 4 hours as needed. NEEDED FOR SHORTNESS OF BREATH AND WHEEZING aspirin, enteric coated (ASPIR-81) 81 mg EC tablet Take 1 tablet by mouth once daily. No current facility-administered medications for this visit. ALLERGIES Allergen Reactions Codeine Unknown Environmental [Othe* Other: See Comments Molds and grasses as verified by skin testing Vicodin [Hydrocodon* Mental Status Change Video Exam (Examination performed via Video enabled technology) General appearance: Alert, oriented, pleasant, in NAD :Yes Ill appearing :No Lethargic appearing :No Respiratory distress :No ASSESSMENT/PLAN: 1. Anxiousness - ICD9: 300.00, ICD10: F41.9 (primary diagnosis) - Stable, continue Buspar as prescribed - BUSPIRONE 10 MG TABLET 2. Stage 4 very severe COPD by GOLD classification (HCC) - ICD9: 496, ICD10: J44.9 - Continue with following with pulmonology. 3. Screening for prostate cancer - ICD9: V76.44, ICD10: Z12.5 - PSA/PROSTATE SPECIFIC ANTIGEN SCREENING 4. Screening for lipid disorders - ICD9: V77.91, ICD10: Z13.220 - LIPID PANEL, NONFASTING 5. Screening for diabetes mellitus - ICD9: V77.1, ICD10: Z13.1 - COMPREHENSIVE METABOLIC PANEL PLAN: - Red flags discussed for need for in person care - All questions answered -Reminded patient that he needs to be seen yearly. Gurmeet Tao APRN.[facility] 06-17-2024 Telephone encounter Note Please let the patient know that I sent in. The following approved medication requests have been transmitted electronically. Requested Prescriptions Pending Prescriptions Disp Refills busPIRone (BUSPAR) 10 mg tablet 90 tablet 0 Sig: Take 1 tablet by mouth three times a day. Gurmeet Tao APRN.CNP [facility] 06-17-2024 Miscellaneous Notes Please let the patient know that I sent in. The following approved medication requests have been transmitted electronically. Requested Prescriptions Pending Prescriptions Disp Refills busPIRone (BUSPAR) 10 mg tablet 90 tablet 0 Sig: Take 1 tablet by mouth three times a day. Gurmeet Tao APRN.CNP Patient is overdue for an appointment. Call to patient, scheduled him for 06/18/2024. Patient is needing called in today if possible. Please review and advise. Patient is calling to check on the Buspirone refill as he has been out since last . He stated it first went to Pulmonary instead of Dr. Ascencio. He is asking for this to please [facility],. .rxrefill documented in this encounter [facility] 06-17-2024 Telephone encounter Note Patient is overdue for an appointment. Call to patient, scheduled him for 06/18/2024. Patient is needing called in today if possible. Please review and advise. [facility] 06-17-2024 Telephone encounter Note Patient is calling to check on the Buspirone refill as he has been out since last . He stated it first went to Pulmonary instead of Dr. Ascencio. He is asking for this to please be expedited today to his [facility],. [facility] 06-17-2024 Telephone encounter Note Request sent to PCP Yulisa Keith LPN [facility] 06-17-2024 Miscellaneous Notes Request sent to PCP Yulisa Keith LPN documented in this encounter [facility] 06-17-2024 Telephone encounter Note .rxrefill [facility] 05-27-2024 Telephone encounter Note Spoke with patient and the following results were discussed: CT Chest Results slight increase in JANNET nodule previously 3 mm, now 5 mm Reviewed case with Dr. Ayala Recommendations: 6 month follow up Patient verbalized understanding of the results and had no other questions or concerns at this time. Nathalie Mojica APRN.[facility] May 27, 2024 2:27 PM [facility] 05-27-2024 Miscellaneous Notes Spoke with patient and the following results were discussed: CT Chest Results slight increase in JANNET nodule previously 3 mm, now 5 mm Reviewed case with Dr. Ayala Recommendations: 6 month follow up Patient verbalized understanding of the results and had no other questions or concerns at this time. Nathalie Mojica APRN.CNP May 27, 2024 2:27 PM documented in this encounter [facility] 05-21-2024 Instructions Nathalie Mojica APRN.CNP - 05/21/2024 8:26 AM EST Images from the original note were not included. Plan for follow-up: Repeat imaging at 6-12 months from recent scan. Frequently Asked Questions: How common are lung nodules? Nodules are found in up to half of adults who get a chest x-ray or CT scan. Do nodules cause any symptoms? In general, small nodules don t cause any noticeable problems. They re too small to cause pain or breathing problems. Should I worry that I have a nodule? Most nodules are not cancer, but for a small number of people the nodule may automatic glove turner and former to be an early cancer. Your doctor can tell if your nodule is lung cancer by: Seeing how it looks on the CT scan. Seeing whether it grows over time. A nodule that grows larger over time is a sign that it could be a cancer. Taking a sample of the nodule with a needle or surgery. Most people with a nodule will NOT need to have this test. What is the chance that the nodule is an early lung cancer? Fewer than 5% of all nodules automatic glove turner and former to be cancer What if my nodule is lung cancer? Even if a nodule turns out to be lung cancer, it is likely to be an early stage lung cancer. People with early stage lung cancer that is treated are less likely to than people who are diagnosed at a later stage when the cancer has started to cause symptoms. What will happen next? Your healthcare team will probably recommend getting more CT scans to keep a close eye on the nodule to see if it changes. We call this active surveillance. ? If a nodule is not cancer, it usually won t grow. If the nodule doesn t grow over a 2-year period, it is very unlikely to be cancer. Most of the time, it is safe to stop watching nodules if there is no growth over a 2-year period. ? On the other hand, if the nodule is getting bigger, it should be looked at more closely to see if it is lung cancer. Nodules can be viewed more closely using different radiology studies or by biopsy (using a needle or surgery to take a sample of the nodule to look at under a microscope). Your healthcare team will determine which is best for you. Why shouldn t I get a biopsy now? ? A biopsy means removing a piece of your lung in order to look at it under a microscope. Biopsies are usually not recommended when nodules are small because it is very difficult to biopsy them safely. ? Doing a biopsy when a nodule is small can cause harm such as collapse of the lung, bleeding, or infection. Is it really safe to wait for the next CT scan? Most cancers grow fairly slowly, and it takes several months for them to get bigger. So even if the nodule is lung cancer, it will likely still be small in a few months. Even if the nodule is lung cancer that is growing, there is a very good chance that surgery or radiation will cure you. Waiting a few months for the next CT scan is very safe and should not affect the treatment you receive or your chances for cure if the nodule turns out to be cancer. How does my clinician decide when to do the next CT scan? There are several guidelines for how to decide when to get the next CT scan. These guidelines are based on the chance the nodule is lung cancer and how big the nodule might be at the time of the next scan. Your healthcare provider will determine the best time for your next CT scan based on these guidelines. Your healthcare provider may choose to discuss the CT results with other specialists to determine the best plan for you. What if I m a smoker? Quitting now will decrease your chance of getting lung cancer in the future, as well as many other serious health problems like emphysema and heart disease. Some people think that if they already have lung cancer, they might as well keep smoking. THAT IS WRONG. documented in this encounter [facility] 05-20-2024 Note HNO ID: [id number] Author: NATHALIE MOJICA APRN.CNP Service: ? Author Type: Nurse Practitioner Type: Progress Notes Filed: 05/21/2024 08:26 Note Text: [facility] INCIDENTAL LUNG NODULE PROGRAM (Follow Up) Impression / Recommendations 1. Lung nodules Previously noted lung nodules are stable, decreased in size and resolved. There are new lung nodules in RLL and JANNET <4 mm, appear to be inflammatory. Plan to follow up CT in 6-12 months. Pending final radiology review. 2. Nicotine Dependence, Former: Continue to abstain from smoking cigarettes. 3. Stage 4 very severe COPD by GOLD classification (HCC) Continue close follow up with icu staff nurse Dr. Silva Sánchez. Follow Up Follow Up Diagnosis: Lung Nodule Recommendation: CT Scan Follow up Date: 10/31/2024 Follow-Up Scheduled: No Pulmonary Follow-Up Type: Lung Nodule Surveillance Enrolled in Lung Nodule program: Yes Lung Nodule Program Location: [facility] Please enter a follow up date: 10/2024 --- History of Present Illness Karli Duke is a 58 year old male with a pertinent past medical history significant for Former smoker: (>30 pack-years, 8 years since quit) who is being seen as a follow up for evaluation of a lung nodule(s). Karli Duke initially presented to nodule clinic after they had a CT Chest (scan type) on 04/24/2023 (date) for the indication of Lung nodules. >5 were detected Incidentally. Ground Glass Irregular nodule/s up to 15 mm were noted in the Right upper lobe of the lung. Evaluation to date has included Serial CT Scans covering 3-6 months. The nodule of concern has remained stable to slightly decreased in size and density. Pt is on oxygen. He is in a wheelchair for walking long distances. Respiratory symptoms include: SOB: Yes Chest tightness: No Coughing: Yes: With mucus Clear Hemoptysis: No Wheezing: Yes Fever/Chills: No Recent Respiratory Infection: No Unintentional weight loss: Yes decreased appetite. Last 12 Encounter Wt Readings: Date: Wt: 02/29/2024 69.4 kg (153 lb) 02/29/2024 69.4 kg (153 lb) 08/29/2023 69.9 kg (154 lb) 08/29/2023 69.9 kg (154 lb) 06/14/2023 73 kg (161 lb) 04/11/2023 73.5 kg (162 lb) 03/14/2023 73.9 kg (163 lb) 12/12/2022 75.3 kg (166 lb) 12/12/2022 75.3 kg (166 lb) 12/01/2022 75.2 kg (165 lb 11.2 oz) 11/14/2022 74.8 kg (165 lb) 05/21/2022 73.9 kg (163 lb)] Modified Medical Research [place] Dyspnea Scale (MMRC) I am too breathless to leave the house or I am breathless when dressing 4 Problem List, History, Medications and allergies have been reviewed from the [facility] electronic medical record and any appropriate up-dates have been made. Physical Exam BP (P) 148/86 Pulse (P) 94 Resp (P) 15 SpO2 (P) 98% General Appearance: Well appearing, alert, in no acute distress, well-hydrated, well nourished.. Neck: Supple, no adenopathy; thyroid symmetric, normal size Lungs: Lungs clear to auscultation. No wheezing, rhonchi, rales.. Heart: RRR without murmur, gallop, or rubs. No ectopy. Neurologic: Oriented X 3. Diagnostic Data I have personally visualized, reviewed and analyzed the findings on pulmonary function testing and radiographs. New JANNET New RLL nodule * * *Final Report* * * DATE OF EXAM: Apr 24 2023 12:10PM [facility] 05[facility] - CT CHEST WO IVCON / PROCEDURE REASON: multiple diagnoses * * * * Physician Interpretation * * * * EXAMINATION: CHEST CT WITHOUT CONTRAST CLINICAL HISTORY: Lung nodule Technique: Spiral CT acquisition of the chest from the thoracic inlet to the upper abdomen without contrast. MQ: CTCWO_6 CT Radiation dose: Integrated Dose-length product (DLP) for this visit = 217 mGy*cm CT Dose Reduction Employed: Automated exposure control(AEC) and iterative recon Comparison: CT chest dated March 16, 2022 RESULT: Limitations: None. Lines, tubes, and devices: None. Lung parenchyma and airways: New ill-defined groundglass opacity in the right apex measuring 1.5 cm. Stable 4 mm right upper lobe pulmonary nodule (6, 45). Stable additional 2 mm right upper lobe nodule (6, 52). Calcified right lower lobe subcentimeter granuloma. Stable 3 mm left lower lobe nodule (6, 125 and 107). New 3 mm left lower lobe nodule (6, 1:30). Additional new 3 mm lingular nodule (6, 154). Pleural space: No pleural effusion. No pleural thickening. Lower neck, lymph nodes, and mediastinum: The imaged thyroid gland is normal. No lymphadenopathy in the supraclavicular, axillary, mediastinal, or hilar regions. Heart, pericardium, and thoracic vessels: The thoracic aorta and main pulmonary artery are normal in caliber. The cardiac chambers are normal in size. Coronary artery atherosclerotic calcifications are noted, although the study is not optimized for coronary assessment. No monica (more content not included)... [facility] 05-20-2024 History of Presen t illness Narrative Images from the original note were not included. [facility] INCIDENTAL LUNG NODULE PROGRAM (Follow Up) Impression / Recommendations 1. Lung nodules Previously noted lung nodules are stable, decreased in size and resolved. There are new lung nodules in RLL and JANNET <4 mm, appear to be inflammatory. Plan to follow up CT in 6-12 months. Pending final radiology review. 2. Nicotine Dependence, Former: Continue to abstain from smoking cigarettes. 3. Stage 4 very severe COPD by GOLD classification (HCC) Continue close follow up with icu staff nurse Dr. Silva Sánchez. Follow Up Follow Up Diagnosis: Lung Nodule Recommendation: CT Scan Follow up Date: 10/31/2024 Follow-Up Scheduled: No Pulmonary Follow-Up Type: Lung Nodule Surveillance Enrolled in Lung Nodule program: Yes Lung Nodule Program Location: [facility] Please enter a follow up date: 10/2024 History of Present Illness Karli Duke is a 58 year old male with a pertinent past medical history significant for Former smoker: (>30 pack-years, 8 years since quit) who is being seen as a follow up for evaluation of a lung nodule(s). Karli Duke initially presented to nodule clinic after they had a CT Chest (scan type) on 04/24/2023 (date) for the indication of Lung nodules. >5 were detected Incidentally. Ground Glass Irregular nodule/s up to 15 mm were noted in the Right upper lobe of the lung. Evaluation to date has included Serial CT Scans covering 3-6 months. The nodule of concern has remained stable to slightly decreased in size and density. Pt is on oxygen. He is in a wheelchair for walking long distances. Respiratory symptoms include: SOB: Yes Chest tightness: No Coughing: Yes: With mucus Clear Hemoptysis: No Wheezing: Yes Fever/Chills: No Recent Respiratory Infection: No Unintentional weight loss: Yes decreased appetite. Last 12 Encounter Wt Readings: Date: Wt: 02/29/2024 69.4 kg (153 lb) 02/29/2024 69.4 kg (153 lb) 08/29/2023 69.9 kg (154 lb) 08/29/2023 69.9 kg (154 lb) 06/14/2023 73 kg (161 lb) 04/11/2023 73.5 kg (162 lb) 03/14/2023 73.9 kg (163 lb) 12/12/2022 75.3 kg (166 lb) 12/12/2022 75.3 kg (166 lb) 12/01/2022 75.2 kg (165 lb 11.2 oz) 11/14/2022 74.8 kg (165 lb) 05/21/2022 73.9 kg (163 lb)] Modified Medical Research [place] Dyspnea Scale (MMRC) I am too breathless to leave the house or I am breathless when dressing 4 Problem List, History, Medications and allergies have [facility] and any appropriate up-dates have been made. Physical Exam BP (P) 148/86 Pulse (P) 94 Resp (P) 15 SpO2 (P) 98% General Appearance: Well appearing, alert, in no acute distress, well-hydrated, well nourished.. Neck: Supple, no adenopathy; thyroid symmetric, normal size Lungs: Lungs clear to auscultation. No wheezing, rhonchi, rales.. Heart: RRR without murmur, gallop, or rubs. No ectopy. Neurologic: Oriented X 3. Diagnostic Data I have personally visualized, reviewed and analyzed the findings on pulmonary function testing and radiographs. New JANNET New RLL nodule * * *Final Report* * * DATE OF EXAM: Apr 24 2023 12:10PM [facility] 0541 - CT CHEST WO IVCON / PROCEDURE REASON: multiple diagnoses * * * * Physician Interpretation * * * * EXAMINATION: CHEST CT WITHOUT CONTRAST CLINICAL HISTORY: Lung nodule Technique: Spiral CT acquisition of the chest from the thoracic inlet to the upper abdomen without contrast. MQ: CTCWO_6 CT Radiation dose: Integrated Dose-length product (DLP) for this visit = 217 mGy*cm CT Dose Reduction Employed: Automated exposure control(AEC) and iterative recon Comparison: CT chest dated March 16, 2022 RESULT: Limitations: None. Lines, tubes, and devices: None. Lung parenchyma and airways: New ill-defined groundglass opacity in the right apex measuring 1.5 cm. Stable 4 mm right upper lobe pulmonary nodule (6, 45). Stable additional 2 mm right upper lobe nodule (6, 52). Calcified right lower lobe subcentimeter granuloma. Stable 3 mm left lower lobe nodule (6, 125 and 107). New 3 mm left lower lobe nodule (6, 1:30). Additional new 3 mm lingular nodule (6, 154). Pleural space: No pleural effusion. No pleural thickening. Lower neck, lymph nodes, and mediastinum: The imaged thyroid gland is normal. No lymphadenopathy in the supraclavicular, axillary, mediastinal, or hilar regions. Heart, pericardium, and thoracic vessels: The thoracic aorta and main pulmonary artery are normal in caliber. The cardiac chambers are normal in size. Coronary artery atherosclerotic calcifications are noted, although the study is not optimized for coronary assessment. No pericardial effusion or thickening. Bones and soft tissues: No destructive bone lesion. Chest wall is unremarkable. Upper abdomen: Hepatic steatosis. Atherosclerotic calcification of the vasculature. Medication Aid (topogram) images: No additional findings. Latest Ref Rng & Units 03/31/2021 03/04/2022 08/29/2023 Spirometry Data FVC PRE (L) L 2.60 2.59 2.21 FEV1 PRE (L) L 0.76 0.69 0.57 FEV1/FVC PRE (%) % 29 27 26 EVA18-54% PRE (L/S) L/S 0.19 0.19 0.16 PEF PRE (L/S) L/S 2.86 3.00 2.40 VC (L) BOX L 2.32 IC BOX (L) L 1.42 ERV BOX (L) L 0.90 DLCO (ml/min/mmHg) ml/min/mmHg 10.15 9.66 FRC Box (L) L 5.73 RV Box (L) L 4.86 TLC Box (L) L 7.16 RV/TLC Box (%) % 68 VA (L) L 4.36 4.24 DLCO/VA (ml/min/mmHg/L) ml/min/mmHg/L 2.33 2.28 Impression / Recommendations To optimize physician communication via the electronic health record, the Impression & Recommendations section has been placed at the beginning of this note. ------- Nathalie Mojica APRN.CNP Pulmonary & Critical Care Medicine May 20, 2024 11:39 AM documented in this encounter [facility] 05-20-2024 History of Presen t illness Narrative Radiology Service Progress Note PATIENT NAME: Karli Duke DATE OF SERVICE: May 20, 2024 TIME: 11:39 AM PATIENT IDENTITY VERIFICATION COMPLETED USING TWO (2) IDENTIFIERS: Name and Date of confirmed by patient verbally. FALL SCREENING: Has the patient had 2 falls in the last year or 1 fall with injury or currently using an Ambulatory Assistive Device (Walker, Cane, Wheelchair, Crutches, etc.)? No PATIENT GENDER DATA: Male PATIENT RELEVANT IMPLANT DATA REVIEWED: Yes PATIENT PRESENTS WITH AN IMPLANTABLE OR ATTACHED TURN DOWN WORKER: No RADIOLOGY DEPARTMENT: CT; Exam(s) Completed: Chest PERIPHERAL IV DATA: Not applicable SIGNED BY: RT Oralia(Margoth) May 20, 2024 11:39 AM documented in this encounter [facility] 05-20-2024 Note HNO ID: [id number] Author: RENEE ENNIS RT(R) Service: ? Author Type: Civil Manager Type: Progress Notes Filed: 05/20/2024 11:39 Note Text: Radiology Service Progress Note PATIENT NAME: Karli Duke DATE OF SERVICE: May 20, 2024 TIME: 11:39 AM PATIENT IDENTITY VERIFICATION COMPLETED USING TWO (2) IDENTIFIERS: Name and Date of confirmed by patient verbally. FALL SCREENING: Has the patient had 2 falls in the last year or 1 fall with injury or currently using an Ambulatory Assistive Device (Walker, Cane, Wheelchair, Crutches, etc.)? No PATIENT GENDER DATA: Male PATIENT RELEVANT IMPLANT DATA REVIEWED: Yes PATIENT PRESENTS WITH AN IMPLANTABLE OR ATTACHED TURN DOWN WORKER: No RADIOLOGY DEPARTMENT: CT; Exam(s) Completed: Chest PERIPHERAL IV DATA: Not applicable SIGNED BY: RT Oralia(R) May 20, 2024 11:39 AM [facility] 05-15-2024 Telephone encounter Note Patient phones requesting refills as follows: THOMAS: 02/29/24 Requested Prescriptions Pending Prescriptions Disp Refills montelukast (SINGULAIR) 10 mg tablet 90 tablet 3 Sig: Take 1 tablet by mouth daily at bedtime. Please review and advise. Yulisa Keith LPN [facility] 05-15-2024 Miscellaneous Notes Patient phones requesting refills as follows: THOMAS: 02/29/24 Requested Prescriptions Pending Prescriptions Disp Refills montelukast (SINGULAIR) 10 mg tablet 90 tablet 3 Sig: Take 1 tablet by mouth daily at bedtime. Please review and advise. Yulisa Keith LPN documented in this encounter [facility] 04-10-2024 Telephone encounter Note Prescription Refill Information The patient has been identified by name and date of : Yes Caregiver verified no other encounters exist for this prescription request: Yes Caregiver confirmed with patient/requestor that no other refills are due, in the near future, with this provider at this time: Yes The last office visit in the department: 12/01/22 Does the patient have a future office visit with this provider/department: No My chart message sent Requested Prescriptions Pending Prescriptions Disp Refills busPIRone (BUSPAR) 10 mg tablet 30 tablet 0 Sig: Take 1 tablet by mouth. montelukast (SINGULAIR) 10 mg tablet 30 tablet 0 Sig: Take 1 tablet by mouth daily at bedtime. Oralia Buchanan LPN April 10, 2024 12:27 PM [facility] 04-10-2024 Miscellaneous Notes Prescription Refill Information The patient has been identified by name and date of : Yes Caregiver verified no other encounters exist for this prescription request: Yes Caregiver confirmed with patient/requestor that no other refills are due, in the near future, with this provider at this time: Yes The last office visit in the department: 12/01/22 Does the patient have a future office visit with this provider/department: No My chart message sent Requested Prescriptions Pending Prescriptions Disp Refills busPIRone (BUSPAR) 10 mg tablet 30 tablet 0 Sig: Take 1 tablet by mouth. montelukast (SINGULAIR) 10 mg tablet 30 tablet 0 Sig: Take 1 tablet by mouth daily at bedtime. Oralia Buchanan LPN April 10, 2024 12:27 PM documented in this encounter [facility] 02-29-2024 History of Presen t illness Narrative Images from the original note were not included. . [facility] [place] Note Patient name: Karli Duke PCP: Alberto Avelar MD CC: Follow-up COPD HPI: Karli Duke 58 year old male former 35 pack year smoker, quitting in 2016 with PMH significant for childhood asthma, very severe COPD, chronic hypoxemic respiratory failure, allergies previously on IT, SAH, GHASSAN. On Trelegy Ellipta with as needed albuterol and participating in lung cancer screening. Has declined pulmonary rehab, endobronchial valve assessment and transplant evaluation. Current inhaled therapy with Trelegy Ellipta and as needed albuterol. Main symptoms are dyspnea on exertion. Patient is very limited in his activities of daily living. The heat and humidity has been very problematic for his shortness of breath so he has been staying inside. He does have air conditioning. No current cough, wheezing or sputum production. He has not been ill with any upper respiratory infection nor has he required hospitalization. DME: [facility] 2-3 L DATA: COPD Assessment Test I never cough 0 1 2 3 4 5 I cough all the time; Score 3 I have no phlegm 0 1 2 3 4 5 My chest is completely full of phlegm; Score 3 My chest does not feel tight at all 0 1 2 3 4 5 My chest chest feels very tight; Score 3 When I walk up a hill or one flight of stairs I am not breathless 0 1 2 3 4 5 When I walk up a hill or one flight or stairs I am very breathless; Score 4 I am not limited doing any activities at home 0 1 2 3 4 5 I am very limited doing activities at home; Score 4 I am confident leaving my home despite my lung condition 0 1 2 3 4 5 I am not at all confident leaving my home because of my lung condition; Score 3 I sleep soundly 0 1 2 3 4 5 don't sleep soundly because of my lungs; Score 3 I have lots of energy 0 1 2 3 4 5 I have no energy at all; Score 4 Total Score: 27 PFT 08/2023: Pulmonary function test show very severe obstruction, hyperinflation, air trapping and marked reduction in diffusing capacity Imaging / Diagnostic Studies: DATE OF EXAM: Apr 24 2023 12:10PM [facility] 05[facility] - CT CHEST WO IVCON / IMPRESSION: 1. New ill-defined 1.5 cm groundglass opacity in the right apex. Close attention on follow-up to document stability is advised. 2. Few stable less than 6 mm pulmonary nodules. Couple of new less than 6 mm pulmonary nodules. Review of chest CT shows a new upper lobe groundglass opacity, emphysema and stable pulmonary nodularity PAST MEDICAL HISTORY No date: Allergic rhinitis No date: Asthma No date: COPD (chronic obstructive pulmonary disease) ([facility]) No date: Other and unspecified hyperlipidemia No date: SAH (subarachnoid hemorrhage) ([facility]) No date: Sleep apnea No date: Tobacco abuse Comment: Quit 2016. ALLERGIES Allergen Reactions Codeine Unknown Environmental [Othe* Other: See Comments Molds and grasses as verified by skin testing Vicodin [Hydrocodon* Mental Status Change wfinmcrjolv-dmrsxtpfq-gpwboogw (TRELEGY ELLIPTA) 200-62.5-25 mcg inhalation powder Inhale 1 Puff as instructed once daily. pantoprazole DR (PROTONIX) 40 mg tablet take 1 tablet by mouth every day busPIRone (BUSPAR) 10 mg tablet take 1 tablet by mouth twice a day montelukast (SINGULAIR) 10 mg tablet take 1 tablet by mouth everyday at bedtime ascorbic acid, vitamin C, (VITAMIN C) 250 mg tablet Take 250 mg by mouth once daily. ergocalciferol, vitamin D2, (VITAMIN D2 ORAL) Take by mouth. Vitamin E, dl, acetate, (VITAMIN E) 134 mg (200 unit) Capsule Take by mouth once daily. melatonin 10 mg chew Take by mouth. loratadine 10 mg cap Take 10 mg by mouth once daily. MULTIVITAMIN ORAL Take by mouth. States contains vitamin b,c,d albuterol HFA (PROVENTIL HFA, VENTOLIN HFA) 90 mcg/actuation inhaler Inhale 2 Puffs as instructed every 4 hours as needed. NEEDED FOR SHORTNESS OF BREATH AND WHEEZING aspirin, enteric coated (ASPIR-81) 81 mg EC tablet Take 1 tablet by mouth once daily. Social History Tobacco Use Smoking status: Former Current packs/day: 0.00 Average packs/day: 1 pack/day for 35.8 years (35.8 ttl pk-yrs) Types: Cigarettes Start date: 1979 Quit date: 09/06/2015 Years since quittin.4 Smokeless tobacco: Current Types: Chew Tobacco comments: No smokers in current home. Vaping Use Vaping status: Never Used Substance Use Topics Alcohol use: Yes Comment: 1 beer a night Drug use: Yes Comment: CBD gummies PMH, Social history, family history and surgical history reviewed and updated in EMR REVIEW OF SYSTEMS: CONSTITUTIONAL: No fevers, chills, nightsweats, unintended weight loss CARDIOVASCULAR: No chest pain, palpitations, orthopnea, PND, edema. PULM: See HPI GI: No dysphagia/odynophagia, problematic reflux NEURO: No new balance problems, peripheral weakness/paresthesias or numbness of concern. PSY: No concerns regarding depression, anxiety INTEGUMENTARY: No new skin changes (rash, new or changing mole, new growth) PHYSICAL EXAMINATION: BP 146/96 Pulse 84 Resp 22 Wt 153 lb (69.4kg) SpO2 97% General Appearance: Age-appropriate male, NAD. Skin: Skin color, texture, turgor normal, no suspicious rashes or lesions. Head: Normocephalic, no masses, lesions, tenderness or abnormalities. Eyes: Sclera, conjunctiva normal. Oropharynx: No oral lesions or thrush. Neck: No JVD, no masses, no adenopathy. Lungs: Not labored, percussion, very diminished breath sounds. Heart: Regular rate and rhythm, no murmur. Extremities: No edema. Mild clubbing. Assessment/Plan: 1. Very severe COPD GOLD stage 4 -Patient declining evaluation for endobronchial valve, transplant -He will continue on Trelegy Ellipta with as needed albuterol -Strongly recommending pulmonary rehab -Continued abstinence from tobacco 2. Dependence on continuous supplemental oxygen -Patient is compliant with and benefits from supplemental oxygen 3. Former cigarette smoker -Former smoker with severe COPD/emphysema -Participating in lung cancer screening and is pending updated CT in light of right upper lobe groundglass opacity -Continued abstinence Millie Sánchez MD [facility] [place] documented in this encounter [facility] 02-29-2024 Note HNO ID: [id number] Author: MILLIE SÁNCHEZ MD Service: ? Author Type: Physician Type: Progress Notes Filed: 02/29/2024 17:09 Note Text: . Respiratory [place] Note Patient name: Karli Duke PCP: Alberto Avelar MD CC: Follow-up COPD HPI: Karli Duke 58 year old male former 35 pack year smoker, quitting in 2016 with PMH significant for childhood asthma, very severe COPD, chronic hypoxemic respiratory failure, allergies previously on IT, SAH, GHASSAN. On Trelegy Ellipta with as needed albuterol and participating in lung cancer screening. Has declined pulmonary rehab, endobronchial valve assessment and transplant evaluation. Current inhaled therapy with Trelegy Ellipta and as needed albuterol. Main symptoms are dyspnea on exertion. Patient is very limited in his activities of daily living. The heat and humidity has been very problematic for his shortness of breath so he has been staying inside. He does have air conditioning. No current cough, wheezing or sputum production. He has not been ill with any upper respiratory infection nor has he required hospitalization. DME: [facility] 2-3 L DATA: COPD Assessment Test I never cough 0 1 2 3 4 5 I cough all the time; Score 3 I have no phlegm 0 1 2 3 4 5 My chest is completely full of phlegm; Score 3 My chest does not feel tight at all 0 1 2 3 4 5 My chest chest feels very tight; Score 3 When I walk up a hill or one flight of stairs I am not breathless 0 1 2 3 4 5 When I walk up a hill or one flight or stairs I am very breathless; Score 4 I am not limited doing any activities at home 0 1 2 3 4 5 I am very limited doing activities at home; Score 4 I am confident leaving my home despite my lung condition 0 1 2 3 4 5 I am not at all confident leaving my home because of my lung condition; Score 3 I sleep soundly 0 1 2 3 4 5 don't sleep soundly because of my lungs; Score 3 I have lots of energy 0 1 2 3 4 5 I have no energy at all; Score 4 Total Score: 27 PFT 08/2023: Pulmonary function test show very severe obstruction, hyperinflation, air trapping and marked reduction in diffusing capacity Imaging / Diagnostic Studies: DATE OF EXAM: Apr 24 2023 12:10PM [facility] 05[facility] - CT CHEST WO IVCON / IMPRESSION: 1. New ill-defined 1.5 cm groundglass opacity in the right apex. Close attention on follow-up to document stability is advised. 2. Few stable less than 6 mm pulmonary nodules. Couple of new less than 6 mm pulmonary nodules. Review of chest CT shows a new upper lobe groundglass opacity, emphysema and stable pulmonary nodularity PAST MEDICAL HISTORY No date: Allergic rhinitis No date: Asthma No date: COPD (chronic obstructive pulmonary disease) ([facility]) No date: Other and unspecified hyperlipidemia No date: SAH (subarachnoid hemorrhage) ([facility]) No date: Sleep apnea No date: Tobacco abuse Comment: Quit 2016. ALLERGIES Allergen Reactions Codeine Unknown Environmental [Othe* Other: See Comments Molds and grasses as verified by skin testing Vicodin [Hydrocodon* Mental Status Change bppzmzzkrno-fvvfillsr-hzmtlbwi (TRELEGY ELLIPTA) 200-62.5-25 mcg inhalation powder Inhale 1 Puff as instructed once daily. pantoprazole DR (PROTONIX) 40 mg tablet take 1 tablet by mouth every day busPIRone (BUSPAR) 10 mg tablet take 1 tablet by mouth twice a day montelukast (SINGULAIR) 10 mg tablet take 1 tablet by mouth everyday at bedtime ascorbic acid, vitamin C, (VITAMIN C) 250 mg tablet Take 250 mg by mouth once daily. ergocalciferol, vitamin D2, (VITAMIN D2 ORAL) Take by mouth. Vitamin E, dl, acetate, (VITAMIN E) 134 mg (200 unit) Capsule Take by mouth once daily. melatonin 10 mg chew Take by mouth. loratadine 10 mg cap Take 10 mg by mouth once daily. MULTIVITAMIN ORAL Take by mouth. States contains vitamin b,c,d albuterol HFA (PROVENTIL HFA, VENTOLIN HFA) 90 mcg/actuation inhaler Inhale 2 Puffs as instructed every 4 hours as needed. NEEDED FOR SHORTNESS OF BREATH AND WHEEZING aspirin, enteric coated (ASPIR-81) 81 mg EC tablet Take 1 tablet by mouth once daily. Social History Tobacco Use Smoking status: Former Current packs/day: 0.00 Average packs/day: 1 pack/day for 35.8 years (35.8 ttl pk-yrs) Types: Cigarettes Start date: 1979 Quit date: 09/06/2015 Years since quittin.4 Smokeless tobacco: Current Types: Chew Tobacco comments: No smokers in current home. Vaping Use Vaping status: Never Used Substance Use Topics Alcohol use: Yes Comment: 1 beer a night Drug use: Yes Comment: STEVE yip PMH, Social history, family history and surgical history reviewed and updated in EMR REVIEW OF SYSTEMS: CONSTITUTIONAL: No fevers, chills, nightsweats, unintended weight loss CARDIOVASCULAR: No chest pain, palpitations, orthopnea, PND, edema. PULM: See HPI GI: No dysphagia/odynophagia, problematic reflux NEURO: No new balance problems, peripheral wea (more content not included)... [facility] 02-29-2024 Note HNO ID: [id number] Author: PAUL MARTINEZ RPFT Service: ? Author Type: Respiratory Therapist Type: Procedures Filed: 02/29/2024 13:35 Note Text: RESPIRATORY THERAPY OXIMETRY WITH AMBULATION Oximetry with Ambulation Test for This Encounter O2 Device O2 Adapter NC O2 Flow SpO2% HR Activity Ft Walked (ft) Time (min) Avg Speed (MPH) R/A 93 88 Resting R/A 88 91 Walking, usual pace 280 3 1.06 NC 2 97 84 Resting NC 2 97 86 Walking, usual pace 300 3 1.14 General Information Pulse Oximetry Site Total Time Spent Walking Assistance/O2 Supply Carrier R Index Finger 30 Wheeled Walker NAME: ERICH Bassett PATIENT NAME: Karli Duke DATE: February 29, 2024 TIME: 1:34 PM Comment: [facility] 02-29-2024 Procedure note Associated Ord er(s): OXIMETRY WITH AMBULATION RESPIRATORY THERAPY OXIMETRY WITH AMBULATION Oximetry with Ambulation Test for This Encounter O2 Device O2 Adapter NC O2 Flow SpO2% HR Activity Ft Walked (ft) Time (min) Avg Speed (MPH) R/A 93 88 Resting R/A 88 91 Walking, usual pace 280 3 1.06 NC 2 97 84 Resting NC 2 97 86 Walking, usual pace 300 3 1.14 General Information Pulse Oximetry Site Total Time Spent Walking Assistance/O2 Supply Carrier R Index Finger 30 Wheeled Walker NAME: ERICH Bassett PATIENT NAME: Karli Duke DATE: February 29, 2024 TIME: 1:34 PM Comment: [facility] 02-29-2024 Procedure note Associated Ord er(s): OXIMETRY WITH AMBULATION RESPIRATORY THERAPY OXIMETRY WITH AMBULATION Oximetry with Ambulation Test for This Encounter O2 Device O2 Adapter NC O2 Flow SpO2% HR Activity Ft Walked (ft) Time (min) Avg Speed (MPH) R/A 93 88 Resting R/A 88 91 Walking, usual pace 280 3 1.06 NC 2 97 84 Resting NC 2 97 86 Walking, usual pace 300 3 1.14 General Information Pulse Oximetry Site Total Time Spent Walking Assistance/O2 Supply Carrier R Index Finger 30 Wheeled Walker NAME: ERICH Bassett PATIENT NAME: Karli Duke DATE: February 29, 2024 TIME: 1:34 PM Comment: documented in this encounter [facility] 02-29-2024 Note HNO ID: [id number] Author: PAUL MARTINEZ RPFT Service: ? Author Type: Respiratory Therapist Type: Progress Notes Filed: 02/29/2024 13:35 Note Text: PULM FUNCTION: Provider: Helen Newman PA-C Assisting Tech: Paul Martinez RPFT Oximetry - Ambulation: 1 [facility] 02-29-2024 History of Presen t illness Narrative PULM FUNCTION: Provider: Helen Newman PA-C Assisting Tech: Paul Martinez RPFT Oximetry - Ambulation: 1 documented in this encounter [facility] 02-29-2024 Nurse Note Intake information documented in the prior visit with ERICH Bassett today. [facility] 02-29-2024 Nurse Note Intake information documented in the prior visit with ERICH Bassett today. documented in this encounter [facility] 01-29-2024 Telephone encounter Note Patient phones requesting refills as follows: THOMAS 08/29/23 Requested Prescriptions Pending Prescriptions Disp Refills fluticasone rlizmqg-wbszqwejivig-dxayeblkcv (TRELEGY ELLIPTA) 200-62.5-25 mcg powder inhaler 180 Each 3 Sig: Inhale 1 Puff as instructed once daily. Please review and advise. Yulisa Keith LPN [facility] 01-29-2024 Miscellaneous Notes Patient phones requesting refills as follows: THOMAS 08/29/23 Requested Prescriptions Pending Prescriptions Disp Refills fluticasone bxmtvys-xayyehwkihiu-wsvrkbarlk (TRELEGY ELLIPTA) 200-62.5-25 mcg powder inhaler 180 Each 3 Sig: Inhale 1 Puff as instructed once daily. Please review and advise. Yulisa Keith LPN documented in this encounter [facility] 12-04-2023 Telephone encounter Note Pharmacy escripts requesting the following refill: Requested Prescriptions Pending Prescriptions Disp Refills pantoprazole DR (PROTONIX) 40 mg tablet [Pharmacy Med Name: PANTOPRAZOLE SOD DR 40 MG TAB] 90 tablet 3 Sig: take 1 tablet by mouth every day Please review and advise. SRIKANTH Lujan THOMAS: 08/29/23 (Helen Newman) Future OV: no ov scheduled pfts ordered for 02/29/24 [facility] 12-04-2023 Miscellaneous Notes Pharmacy escripts requesting the following refill: Requested Prescriptions Pending Prescriptions Disp Refills pantoprazole DR (PROTONIX) 40 mg tablet [Pharmacy Med Name: PANTOPRAZOLE SOD DR 40 MG TAB] 90 tablet 3 Sig: take 1 tablet by mouth every day Please review and advise. SRIKANTH Lujan THOMAS: 08/29/23 (Helen Newman) Future OV: no ov scheduled pfts ordered for 02/29/24 documented in this encounter [facility] 08-29-2023 History of Presen t illness Narrative Images from the original note were not included. Patient: Karli Duke PCP: Alberto Avelar MD CC: follow up HPI: Karli Duke 57 year old male former 35 pack year smoker, quitting 2015 with PMH significant for childhood asthma now very severe COPD, chronic hypoxemic respiratory failure, history of allergies requiring immunotherapy, subarachnoid hemorrhage, and obstructive sleep apnea (non-compliant with CPAP). Current maintenance therapy with Trelegy Ellipta and as needed Albuterol. Today, patient reports daily cough productive of snot. He has constant nasal drainage and pnd. No hemoptysis. Frequent epistaxis. Wheezing. Exertional dyspnea progressively worse. Struggles with ADLs. He states he is trying to stay active by walking out to the mailbox each day. No recent hospitalizations or ED visits or upper respiratory infections. Patient is currently receiving short-term disability and is applying for long-term disability. Currently wearing 2L supplemental oxygen continuously. DME: [facility]. PAST MEDICAL HISTORY Diagnosis Date Allergic rhinitis Asthma COPD (chronic obstructive pulmonary disease) ([facility]) Other and unspecified hyperlipidemia SAH (subarachnoid hemorrhage) ([facility]) Sleep apnea Tobacco abuse Quit 2015. Allergies: Codeine Unknown Environmental [Othe* Other: See Comments Comment:Molds and grasses as verified by skin testing Vicodin [Hydrocodon* Mental Status Change busPIRone (BUSPAR) 10 mg tablet take 1 tablet by mouth twice a day montelukast (SINGULAIR) 10 mg tablet take 1 tablet by mouth everyday at bedtime ascorbic acid, vitamin C, (VITAMIN C) 250 mg tablet Take 250 mg by mouth once daily. ergocalciferol, vitamin D2, (VITAMIN D2 ORAL) Take by mouth. Vitamin E, dl, acetate, (VITAMIN E) 134 mg (200 unit) Capsule Take by mouth once daily. melatonin 1 mg tablet Take by mouth. xtsydnqkqsq-gmrebbxfp-iktwobjr (TRELEGY ELLIPTA) 200-62.5-25 mcg inhalation powder Inhale 1 Puff as instructed once daily. pantoprazole DR (PROTONIX) 40 mg tablet TAKE 1 TABLET BY MOUTH EVERY DAY loratadine 10 mg cap Take 10 mg by mouth once daily. MULTIVITAMIN ORAL Take by mouth. States contains vitamin b,c,d albuterol HFA (PROVENTIL HFA, VENTOLIN HFA) 90 mcg/actuation inhaler Inhale 2 Puffs as instructed every 4 hours as needed. NEEDED FOR SHORTNESS OF BREATH AND WHEEZING aspirin, enteric coated (ASPIR-81) 81 mg EC tablet Take 1 tablet by mouth once daily. Social History Tobacco Use Smoking status: Former Packs/day: 1.00 Years: 35.00 Additional pack years: 0.00 Total pack years: 35.00 Types: Cigarettes Start date: 1979 Quit date: 09/06/2015 Years since quittin.9 Smokeless tobacco: Current Types: Chew Tobacco comments: No smokers in current home. Vaping Use Vaping Use: Never used Substance Use Topics Alcohol use: Yes Comment: 1 beer a night Drug use: Yes Comment: CBD gummies Family History Problem Relation Age of Onset Diabetes Mother None Father other (overdose) Sister Allergies Daughter COPD No Family History Asthma No Family History PAST SURGICAL HISTORY Procedure Laterality Date COLONOSCOPY FLX DX W/COLLJ SPEC WHEN PFRMD 04/10/2019 Colonoscopy OTHER ANEURYSM REPAIR 01/04/2017 [facility] PAST SURGICAL HISTORY OF cyst on tailbone I reviewed the past medical history, family history, social history and surgical history with changes noted above and updated in EMR. IMMUNIZATIONS Prevnar - 2021 Pneumovax - 2019 Influenza - 04/11/2023 COVID-19 - most recent 04/2022 ROS: General: No fevers, chills or night sweats. No unintended weight loss. Eyes, Ears, nose, throat: Sinus congestion and PND. Frequent epistaxis. No hoarseness. Vision stable. Cardiac: No angina, edema, orthopnea, chest pain, palpitations. Resp: See HPI. GI: No heartburn, dysphagia. Musculoskeletal: No joint pain or swelling. Neuro: No headache, focal weakness, tremor. Skin: No skin changes or rash. Otherwise negative. PHYSICAL EXAMINATION: BP 138/90 Pulse 80 Temp 37.3 C (99.1 F) (Temporal) Resp 14 Ht 160 cm (5' 3) Wt 69.9 kg (154 lb) SpO2 95% BMI 27.28 kg/m O2: 2L NC Gen: No acute distress. Cooperative with examination. HEENT: Normocephalic. Sclera, conjunctiva clear. Dentures. No thrush. Resp: No stridor, accessory respiratory muscle use, supra-sternal or intercostal retractions. No wheezes, crackles. Diminished breath sounds. CV: Regular rythm. Heart tones normal. Radial pulses normal. MSK: No kyphoscoliosis. Ext: Warm and well perfused. No clubbing, cyanosis, edema. Skin: No rash, ecchymoses. Neuro: Mental status normal. Affect normal. No tremor. DATA: PFT, 08/29/2023 PFT, 03/2022 IMPRESSION: Spirometry indicates very severe obstruction. The diffusing capacity is severely reduced. Oximetry, 03/2023 O2 Device O2 Adapter NC O2 Flow SpO2% HR Activity Ft Walked (ft) Time (min) Avg Speed (MPH) R/A 92 92 Resting R/A 87 102 Walking, usual pace 280 2.6 1.22 NC 2 95 88 Resting NC 2 94 96 Walking, usual pace [address] chest, 04/24/2023 IMPRESSION: 1. New ill-defined 1.5 cm groundglass opacity in the right apex. Close attention on follow-up to document stability is advised. 2. Few stable less than 6 mm pulmonary nodules. Couple of new less than 6 mm pulmonary nodules. Incidental Finding: Follow-up Acuity: Incidental Finding: Non solid: 6 mm or greater (solitary nodule) Routing Code: RI_[id number] Recommendation: CT Chest WO IVCON Time Frame: 6-12 months Comments: If stable on follow-up imaging, repeat chest CT exams in 24 and 48 months are recommended (at 30-36 and 54-60 months from the initial exam) ASSESSMENT/PLAN: 1. Stage 4 very severe COPD by GOLD classification (HCC) - ICD9: 496, ICD10: J44.9 (primary diagnosis) PFTs stable. Continue triple therapy with Trelegy and as needed Albuterol. Discussed pulmonary rehab and patient declines. He is not interested in lung transplant referral. - OXIMETRY WITH AMBULATION 2. Former cigarette smoker - ICD9: V15.82, ICD10: Z87.891 Enrolled in lung cancer screening. 3. Chronic hypoxemic respiratory failure (HCC) - ICD9: 518.83, 799.02, ICD10: J96.11 Patient is compliant and benefits from supplemental oxygen. Discussed NIV with patient, however, he states he was not able to tolerate CPAP and is not interested. - OXIMETRY WITH AMBULATION 4. Chronic sinusitis, unspecified location - ICD9: 473.9, ICD10: J32.9 Referral to ENT. - CONSULT TO ENT 5. GHASSAN (obstructive sleep apnea) - ICD9: 327.23, ICD10: G47.33 Non-compliant. Portions of this documentation were copied and pasted from previous office visit notes in order to provide a cohesive continuity of the history. The note has been reviewed and edited and updated as necessary. Helen Newman PA-C documented in this encounter [facility] 08-29-2023 History of Presen t illness Narrative PULM FUNCTION SMARTBLOCK: Provider: Helen Newman PA-C Assisting Tech: Paul Martinez RPFT Spirometry: 1 DLCO: 1 LV - Box: 1 documented in this encounter [facility] 08-29-2023 Nurse Note Intake information documented in the prior visit with ERICH Bassett today. documented in this encounter [facility] 06-15-2023 Miscellaneous Notes Paperwork placed on [employer] Helen Lee MA documented in this encounter [facility] 06-14-2023 History of Presen t illness Narrative Images from the original note were not included. Patient: Karli Duke PCP: Alberto Avelar MD CC: follow up HPI: Karli Duke 57 year old male former 35 pack year smoker, quitting 2016 with PMH significant for childhood asthma now very severe COPD, chronic hypoxemic respiratory failure, history of allergies requiring immunotherapy, subarachnoid hemorrhage, and obstructive sleep apnea. Current maintenance therapy with Trelegy Ellipta and as needed Albuterol. Today, patient states he is now on disability. Daily cough productive of yellow/green sputum. No hemoptysis. Little wheezing. Exertional dyspnea with climbing stairs, walking short distances. No fevers, chills or night sweats. No lower extremity edema. Currently wearing 2 L supplemental oxygen continuously. DME: Lilli PAST MEDICAL HISTORY Diagnosis Date Allergic rhinitis Asthma COPD (chronic obstructive pulmonary disease) ([facility]) Other and unspecified hyperlipidemia SAH (subarachnoid hemorrhage) ([facility]) Sleep apnea Tobacco abuse Quit 2015. Allergies: Codeine Unknown Environmental [Othe* Other: See Comments Comment:Molds and grasses as verified by skin testing Vicodin [Hydrocodon* Mental Status Change busPIRone (BUSPAR) 10 mg tablet take 1 tablet by mouth twice a day montelukast (SINGULAIR) 10 mg tablet take 1 tablet by mouth everyday at bedtime ascorbic acid, vitamin C, (VITAMIN C) 250 mg tablet Take 250 mg by mouth once daily. ergocalciferol, vitamin D2, (VITAMIN D2 ORAL) Take by mouth. Vitamin E, dl, acetate, (VITAMIN E) 134 mg (200 unit) Capsule Take by mouth once daily. melatonin 1 mg tablet Take by mouth. bbpxasabzba-rkwllqhox-tfjxspoj (TRELEGY ELLIPTA) 200-62.5-25 mcg inhalation powder Inhale 1 Puff as instructed once daily. pantoprazole DR (PROTONIX) 40 mg tablet TAKE 1 TABLET BY MOUTH EVERY DAY loratadine 10 mg cap Take 10 mg by mouth once daily. MULTIVITAMIN ORAL Take by mouth. States contains vitamin b,c,d albuterol HFA (PROVENTIL HFA, VENTOLIN HFA) 90 mcg/actuation inhaler Inhale 2 Puffs as instructed every 4 hours as needed. NEEDED FOR SHORTNESS OF BREATH AND WHEEZING aspirin, enteric coated (ASPIR-81) 81 mg EC tablet Take 1 tablet by mouth once daily. Social History Tobacco Use Smoking status: Former Packs/day: 1.00 Years: 35.00 Additional pack years: 0.00 Total pack years: 35.00 Types: Cigarettes Start date: 1979 Quit date: 09/06/2015 Years since quittin.7 Smokeless tobacco: Current Types: Chew Tobacco comments: No smokers in current home. Vaping Use Vaping Use: Never used Substance Use Topics Alcohol use: Yes Comment: 1 beer a night Drug use: Yes Comment: CBD gummies Family History Problem Relation Age of Onset Diabetes Mother None Father other (overdose) Sister Allergies Daughter COPD No Family History Asthma No Family History PAST SURGICAL HISTORY Procedure Laterality Date COLONOSCOPY FLX DX W/COLLJ SPEC WHEN PFRMD 04/10/2019 Colonoscopy OTHER ANEURYSM REPAIR 01/04/2017 [facility] PAST SURGICAL HISTORY OF cyst on tailbone I reviewed the past medical history, family history, social history and surgical history with changes noted above and updated in EMR. IMMUNIZATIONS Prevnar - 2021 Pneumovax - 2021 Influenza - 04/11/2023 COVID-19 - most recent 04/2022 ROS: CONSTITUTIONAL: No fevers, chills, nightsweats, unintended weight loss. Significant fatigue HEENT: Denies current nasal congestion/sinus symptoms, problematic allergy problems. CARDIOVASCULAR: No chest pain,palpitations, orthopnea, PND, edema. PULM: See HPI. NEURO: No new balance problems, peripheral weakness/paresthesias or numbness of concern. MUSC-SKEL: No new joint pain, swelling, or erythema. PSY: No concerns regarding depression, anxiety INTEGUMENTARY: No new skin changes or rashes PHYSICAL EXAMINATION: BP 132/84 Pulse 66 Resp 15 Wt 73 kg (161 lb) SpO2 99% BMI 28.52 kg/m O2: 2L NC Gen: No acute distress. Cooperative with examination. HEENT: Normocephalic. Sclera, conjunctiva clear. Dentures. No thrush. Resp: No stridor, accessory respiratory muscle use, supra-sternal or intercostal retractions. No wheezes, crackles. CV: Regular rythm. Heart tones normal. Radial pulses normal. MSK: No kyphoscoliosis. Ext: Warm and well perfused. No clubbing, cyanosis, edema. Skin: No rash, ecchymoses. Neuro: Mental status normal. Affect normal. No tremor. DATA: PFT, 03/2022 IMPRESSION: Spirometry indicates very severe obstruction. The diffusing capacity is severely reduced. Oximetry, 03/2023 O2 Device O2 Adapter NC O2 Flow SpO2% HR Activity Ft Walked (ft) Time (min) Avg Speed (MPH) R/A 92 92 Resting R/A 87 102 Walking, usual pace 280 2.6 1.22 NC 2 95 88 Resting NC 2 94 96 Walking, usual pace [address] chest, 04/24/2023 IMPRESSION: 1. New ill-defined 1.5 cm groundglass opacity in the right apex. Close attention on follow-up to document stability is advised. 2. Few stable less than 6 mm pulmonary nodules. Couple of new less than 6 mm pulmonary nodules. Incidental Finding: Follow-up Acuity: Incidental Finding: Non solid: 6 mm or greater (solitary nodule) Routing Code: RI_1 Recommendation: CT Chest WO IVCON Time Frame: 6-12 months Comments: If stable on follow-up imaging, repeat chest CT exams in 24 and 48 months are recommended (at 30-36 and 54-60 months from the initial exam) ASSESSMENT/PLAN: 1. Stage 4 very severe COPD by GOLD classification (HCC) - ICD9: 496, ICD10: J44.9 (primary diagnosis) Continue Trelegy Ellipta daily. Rinse mouth after each use to help prevent oral thrush. Albuterol HFA inhaler, 2 inhalations 10-15 minutes prior to activities associated with shortness of breath, and as needed for rescue relief of shortness of breath or wheezing, up to 4 times daily. Discussed pulmonary rehab and patient declines at this time. He is a transplant candidate, but after reviewing information about survival rates online he does not want to pursue. 2. Former cigarette smoker - ICD9: V15.82, ICD10: Z87.891 Enrolled in lung cancer screening. Next CT chest scheduled for May 2024. 3. Chronic hypoxemic respiratory failure (HCC) - ICD9: 518.83, 799.02, ICD10: J96.11 Patient is compliant and benefits from supplemental oxygen. 4. Lung nodules - ICD9: 793.19, ICD10: R91.8 See #2. Portions of this documentation were copied and pasted from previous office visit notes in order to provide a cohesive continuity of the history. The note has been reviewed and edited and updated as necessary. Helen Newman PA-C documented in this encounter [facility] 05-01-2023 Miscellaneous Notes Pt notified of results and recommendations. Plan for [address] Pt agrees. Left message for pt to call back regarding results. New <6 mm nodules and new 1.5 cm ground glass nodule. Case reviewed with Dr. Salvador. Recommendation [address] documented in this encounter [facility] 05-01-2023 Miscellaneous Notes Detailed message left on Idris's voicemail by Dr. Sánchez. Her direct callback number was provided on the voicemail. Yulisa Keith LPN Dr. Sánchez is aware and will call them as soon as she has an opportunity today to discuss. Rosalina Christianson MA Idris with [employer] phoned to clarify the date debacle with patients short term disability paperwork. She states patient has been working with pulmonary issues since 2015. He worked up until 04/24/2023. The office visit notes she received are from 03/14/23 at which point he was still working. Idris is requesting clarification on why the patient is now unable to work. [employer]aria Steinberg phone is [phone] ext [phone] Helen Lee MA documented in this encounter [facility] 04-27-2023 Miscellaneous Notes Letter with last office visit notes faxed as requested. Rosalina Christianson MA Disability forms provided to Helen Newman PA-C to complete. Renee Andrade LPN Phone number not working. Will look at disablity forms to possibly find another contact #. Rosalina Christianson MA Cherry called with questions about patients short term disability. Please call Cherry [phone] ext [phone] documented in this encounter [facility] 04-27-2023 Miscellaneous Notes Reviewed paperwork with Dr. Sánchez. Unsure what date patient is referring to. I called patient and he provided me with the following number for [employer]. [phone] ext [phone]. Left a message that we are looking for clarification. Betty documented in this encounter [facility] 04-24-2023 History of Presen t illness Narrative Radiology Service Progress Note PATIENT NAME: Karli Duke DATE OF SERVICE: April 24, 2023 TIME: 2:40 PM PATIENT IDENTITY VERIFICATION COMPLETED USING TWO (2) IDENTIFIERS: Name and Date of confirmed by patient verbally. FALL SCREENING: Has the patient had 2 falls in the last year or 1 fall with injury or currently using an Ambulatory Assistive Device (Walker, Cane, Wheelchair, Crutches, etc.)? No PATIENT GENDER DATA: Male PATIENT RELEVANT IMPLANT DATA REVIEWED: Yes RADIOLOGY DEPARTMENT: CT; Exam(s) Completed: Chest PERIPHERAL IV DATA: Not applicable SIGNED BY: RT Oralia(R) April 24, 2023 2:40 PM documented in this encounter [facility] 04-18-2023 Miscellaneous Notes The following approved medication requests have been transmitted electronically. Requested Prescriptions Pending Prescriptions Disp Refills busPIRone (BUSPAR) 10 mg tablet [Pharmacy Med Name: BUSPIRONE HCL 10 MG TABLET] 180 tablet 3 Sig: take 1 tablet by mouth twice a day montelukast (SINGULAIR) 10 mg tablet [Pharmacy Med Name: MONTELUKAST SOD 10 MG TABLET] 90 tablet 3 Sig: take 1 tablet by mouth everyday at bedtime Gurmeet Tao APRN.MALTER OPERATOR Last refills 04/25/22 Qty: x 1 year THOMAS 12/01/22 NOV none scheduled Eran Schmidt LPN documented in this encounter [facility] 03-17-2023 Miscellaneous Notes 3rd call attempt, left vm 2nd call attempt, left vm 1st attempt left message to return call to schedule consult for Lung Cancer Screening documented in this encounter [facility] 03-14-2023 Instructions Millie Sánchez MD - 03/14/2023 3:22 PM EDT Recommend half-way disability documented in this encounter [facility] 03-14-2023 History of Presen t illness Narrative Images from the original note were not included. . Res[facility] [place] Note Patient name: Karli Duke PCP: Alberto Avelar MD CC: Follow-up HPI: Karli Duke 57 year old male former 35 pack year smoker, quitting 2015 with PMH significant for childhood asthma now very severe COPD, chronic hypoxemic respiratory failure, history of allergies requiring immunotherapy, subarachnoid hemorrhage, obstructive sleep apnea presenting for follow-up visit. Current inhaled therapy consists of Trelegy Ellipta with as needed albuterol. He has been having extreme difficulty with severe shortness of breath with minimal activity despite use of his oxygen. 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 He receives quite a bit of assistance from his fellow coworkers. He was asking about short-term disability so he can continue to work for financial reasons. From a respiratory standpoint he is severely short of breath with minimal left cavity. No audible wheezing. Occasional cough but no significant sputum production. He had extreme difficulty with his breathing during the poor air quality days related to the [employer]. In fact, he had to take a leave of absence. COPD Assessment Test I never cough 0 1 2 3 4 5 I cough all the time; Score 2 I have no phlegm 0 1 2 3 4 5 My chest is completely full of phlegm; Score 4 My chest does not feel tight at all 0 1 2 3 4 5 My chest chest feels very tight; Score 2 When I walk up a hill or one flight of stairs I am not breathless 0 1 2 3 4 5 When I walk up a hill or one flight or stairs I am very breathless; Score 5 I am not limited doing any activities at home 0 1 2 3 4 5 I am very limited doing activities at home; Score 4 I am confident leaving my home despite my lung condition 0 1 2 3 4 5 I am not at all confident leaving my home because of my lung condition; Score 4 I sleep soundly 0 1 2 3 4 5 don't sleep soundly because of my lungs; Score 4 I have lots of energy 0 1 2 3 4 5 I have no energy at all; Score 5 Total Score: 30 DATA: Oximetry with Ambulation Test for This Encounter O2 Device O2 Adapter NC O2 Flow SpO2% HR Activity Ft Walked (ft) Time (min) Avg Speed (MPH) R/A 92 92 Resting R/A 87 102 Walking, usual pace 280 2.6 1.22 NC 2 95 88 Resting NC 2 94 96 Walking, usual pace 395 3 1.5 General Information Pulse Oximetry Site Total Time Spent O2 Supply Carrier Walking Assistance/Device R Index Finger 20 3 Wheel Walker None NAME: ERICH Bassett PATIENT NAME: Karli Duke DATE: December 12, 2022 TIME: 2:36 PM PAST MEDICAL HISTORY Diagnosis Date Allergic rhinitis Asthma COPD (chronic obstructive pulmonary disease) ([facility]) Other and unspecified hyperlipidemia SAH (subarachnoid hemorrhage) ([facility]) Sleep apnea Tobacco abuse Quit 2015. ALLERGIES Allergen Reactions Codeine Unknown Environmental [Othe* Other: See Comments Molds and grasses as verified by skin testing Vicodin [Hydrocodon* Mental Status Change zomjfmjnwzb-zwurhaojf-hyclgsch (TRELEGY ELLIPTA) 200-62.5-25 mcg inhalation powder Inhale 1 Puff as instructed once daily. pantoprazole DR (PROTONIX) 40 mg tablet TAKE 1 TABLET BY MOUTH EVERY DAY montelukast (SINGULAIR) 10 mg tablet TAKE 1 TABLET BY MOUTH EVERYDAY AT BEDTIME busPIRone (BUSPAR) 10 mg tablet TAKE 1 TABLET BY MOUTH TWICE A DAY loratadine 10 mg cap Take 10 mg by mouth once daily. MULTIVITAMIN ORAL Take by mouth. States contains vitamin b,c,d albuterol HFA (PROVENTIL HFA, VENTOLIN HFA) 90 mcg/actuation inhaler Inhale 2 Puffs as instructed every 4 hours as needed. NEEDED FOR SHORTNESS OF BREATH AND WHEEZING aspirin, enteric coated (ASPIR-81) 81 mg EC tablet Take 1 tablet by mouth once daily. ascorbic acid, vitamin C, (VITAMIN C) 250 mg tablet Take 250 mg by mouth once daily. ergocalciferol, vitamin D2, (VITAMIN D2 ORAL) Take by mouth. Vitamin E, dl, acetate, (VITAMIN E) 134 mg (200 unit) Capsule Take by mouth once daily. melatonin 1 mg tablet Take by mouth. Social History Tobacco Use Smoking status: Former Packs/day: 1.00 Years: 35.00 Additional pack years: 0.00 Total pack years: 35.00 Types: Cigarettes Start date: 1979 Quit date: 09/06/2015 Years since quittin.5 Smokeless tobacco: Current Types: Chew Tobacco comments: No smokers in current home. Vaping Use Vaping Use: Never used Substance Use Topics Alcohol use: Yes Comment: 1 beer a night Drug use: Yes Comment: CBD gummies FAMILY HISTORY Problem Relation Age of Onset Diabetes Mother None Father other (overdose) Sister Allergies Daughter COPD No Family History Asthma No Family History PAST SURGICAL HISTORY Procedure Laterality Date COLONOSCOPY FLX DX W/COLLJ SPEC WHEN PFRMD 04/10/2019 Colonoscopy OTHER ANEURYSM REPAIR 01/04/2017 [facility] PAST SURGICAL HISTORY OF cyst on tailbone PMH, Social history, family history and surgical history reviewed and updated in EMR REVIEW OF SYSTEMS: CONSTITUTIONAL: No fevers, chills, nightsweats, unintended weight loss. Significant fatigue HEENT: Denies current nasal congestion/sinus symptoms, problematic allergy problems. CARDIOVASCULAR: No chest pain,palpitations, orthopnea, PND, edema. PULM: See HPI. NEURO: No new balance problems, peripheral weakness/paresthesias or numbness of concern. MUSC-SKEL: No new joint pain, swelling, or erythema. PSY: No concerns regarding depression, anxiety INTEGUMENTARY: No new skin changes or rashes PHYSICAL EXAMINATION: BP 130/90 Pulse 93 Wt 163 lb (73.9kg) SpO2 95% General Appearance: Age appropriate, mild respiratory distress. Skin: Skin color, texture, turgor normal, no suspicious rashes or lesions. Head: Normocephalic, no masses, lesions, tenderness or abnormalities. Eyes: No scleral changes or injection. Oropharynx: Dentures, no thrush. Neck: No JVD, no masses or adneopathy. Lungs: Mild labored, very diminished breath sounds almost absent. Heart: RRR, no murmur. Extremities: No edema or clubbing. Assessment/Plan: 1. Very severe COPD, GOLD stage 4 -He will continue on Trelegy Ellipta with albuterol as needed and continue with supplemental oxygen -Continue abstinence from tobacco -Patient qualifies for long-term disability. He will speak with HR department tomorrow at work -Patient is a transplant candidate but he is not certain he wants to pursue this route 2. Chronic hypoxemic respiratory failure -Patient benefits from supplemental oxygen Millie Sánchez MD [facility] [place] documented in this encounter [facility] 01-17-2023 Miscellaneous Notes Faxed. Yulisa Keith LPN Suri Roman needs a copy of the last office notes for this patient's supplies, please. You can fax them to [phone]. Thank you! Bree Estrella, JALEEL documented in this encounter [facility] 01-13-2023 Miscellaneous Notes Patient phones requesting refills as follows: Requested Prescriptions Pending Prescriptions Disp Refills fluticasone llfkoei-uuemxgmbgkoy-ijjzxoyqrf (TRELEGY ELLIPTA) 200-62.5-25 mcg powder inhaler 180 Each 3 Sig: Inhale 1 Puff as instructed once daily. Please review and advise. Yulisa Keith LPN documented in this encounter [facility] 12-05-2022 Miscellaneous Notes THOMAS 11/14/2022 note reviewed NOV 01/11/2023 Rx approved documented in this encounter [facility] 12-01-2022 History of Presen t illness Narrative Chief Complaint Patient presents with: Discussion: For Lift Chair HPI Karli Duke is a 57 year old male who presents here today for lift chair eval. Pt has not been seen since May 2020. Will check with [employer]. He has a paper from [employer] to put him on High Priority list. He was advised to see if his Condenser Tester will complete it due to his breathing issues being managed by them. Here today for evaluation for lift chair. He has a very difficulty time getting out of a regular chair or off the couch. He has trouble getting up out of bed. He states he can get out of a regular kitchen chair but states that gets to be uncomfortable to sit in all day. He has a hard time with getting himself to standing position due to weakness and decreased lung capacity to get himself up. He had pneumonia back in 2019 and had his ex's lift chair and that worked tremendously well for him until about a year ago it broke and has had issues ever since. He sleeps in his chair often as well. Follows with Pulm for his COPD. He uses Oxygen at night while sleeping, does not use his CPAP as he can't tolerate it due to his PTSD. He checks is Oxygen levels at home which at rest run around 94%. Past medical history, appointments, medications, allergies reviewed. Previous Medical History PAST MEDICAL HISTORY Diagnosis Date Allergic rhinitis Asthma COPD (chronic obstructive pulmonary disease) ([facility]) Other and unspecified hyperlipidemia SAH (subarachnoid hemorrhage) ([facility]) Sleep apnea Tobacco abuse Quit 2015. Previous Surgical History PAST SURGICAL HISTORY Procedure Laterality Date COLONOSCOPY FLX DX W/COLLJ SPEC WHEN PFRMD 04/10/2019 Colonoscopy OTHER ANEURYSM REPAIR 01/04/2017 [facility] PAST SURGICAL HISTORY OF cyst on tailbone Family History FAMILY HISTORY Problem Relation Age of Onset Diabetes Mother None Father other (overdose) Sister Allergies Daughter COPD No Family History Asthma No Family History Patient Allergies ALLERGIES Allergen Reactions Codeine Unknown Environmental [Othe* Other: See Comments Molds and grasses as verified by skin testing Vicodin [Hydrocodon* Mental Status Change Current Medications Current Outpatient Medications on File Prior to Visit Medication Sig ojrrjgpmxiw-qsjtyvgxn-mswszwub (TRELEGY ELLIPTA) 200-62.5-25 mcg inhalation powder Inhale 1 Puff as instructed once daily. montelukast (SINGULAIR) 10 mg tablet TAKE 1 TABLET BY MOUTH EVERYDAY AT BEDTIME busPIRone (BUSPAR) 10 mg tablet TAKE 1 TABLET BY MOUTH TWICE A DAY loratadine 10 mg cap Take 10 mg by mouth once daily. pantoprazole DR (PROTONIX) 40 mg tablet TAKE 1 TABLET BY MOUTH EVERY DAY MULTIVITAMIN ORAL Take by mouth. States contains vitamin b,c,d albuterol HFA (PROVENTIL HFA, VENTOLIN HFA) 90 mcg/actuation inhaler Inhale 2 Puffs as instructed every 4 hours as needed. NEEDED FOR SHORTNESS OF BREATH AND WHEEZING aspirin, enteric coated (ASPIR-81) 81 mg EC tablet Take 1 tablet by mouth once daily. No current facility-administered medications on file prior to visit. Social History Social History Tobacco Use Smoking status: Former Packs/day: 1.00 Years: 35.00 Pack years: 35.00 Types: Cigarettes Start date: 1979 Quit date: 09/06/2015 Years since quittin.2 Smokeless tobacco: Current Types: Chew Tobacco comments: No smokers in current home. Vaping Use Vaping Use: Never used Substance Use Topics Alcohol use: Yes Comment: 1 beer a night Drug use: Yes Comment: CBD gummies EXAM: BP 130/80 Pulse 84 Resp 20 Wt 75.2 kg (165 lb 11.2 oz) SpO2 95% BMI 29.35 kg/m General Appearance: Well appearing, alert, in no acute distress, well-hydrated, well nourished. and Overweight. Lungs: decreased breath sounds and wheezing from COPD. Heart: RRR without murmur, gallop, or rubs. No ectopy. Health Maintenance List HEPATITIS B(1 of 3 - 3-dose series) Never done HEPATITIS C SCREENING Never done HIV SCREENING Never done DTAP,TDAP,TD(1 - Tdap) Never done LIPID SCREEN due on 01/04/2021 ANNUAL PCP TEAM CHRONIC DISEASE VISIT due on 05/15/2021 COVID-19 VACCINE(5 - Booster for Pfizer series) due on 06/20/2022 DEPRESSION ASSESSMENT Never done SHINGRIX VACCINE(2 of 2) due on 07/12/2022 PROSTATE CANCER SCREENING DISCUSSION due on 11/15/2022 LUNG CANCER SCREENING due on 03/16/2023 PNEUMOCOCCAL(2 - PCV) due on 05/17/2023 DIABETES SCREEN due on 01/01/2024 COLORECTAL CANCER SCREENING due on 04/10/2029 ALPHA-1 ANTITRYPSIN DEFICIENCY SCREENING Completed SPIROMETRY Completed INFLUENZA Completed Data reviewed none ASSESSMENT/PLAN: 1. Pulmonary emphysema, unspecified emphysema type (HCC) - ICD9: 492.8, ICD10: J43.9 (primary diagnosis) - SEAT LIFT MECHANISM COMBL 2. Stage 4 very severe COPD by GOLD classification (HCC) - ICD9: 496, ICD10: J44.9 - SEAT LIFT MECHANISM COMBL Rx for lift chair Follow up prn I agree with the Chief Complaint, ROS, and Past Histories independently gathered by the clinical sales support advisor and the remaining scribed note accurately describes my personal service to the patient. Medical Decision Making: Problems: Low: Stable chronic illness Risk: Moderate: Drug management Medical Decision Making Level: 3 - Low Alberto Avelar MD The documentation for this note was completed by Renee Perez Ma acting as scribe for Alberto Avelar MD. December 01, 2022 1:56 PM. Renee Perez Ma documented in this encounter [facility] 11-14-2022 History of Presen t illness Narrative Patient: Karli Duke PCP: Alberto Avelar MD CC: COPD HPI: Karli Duke 56 year old male former smoker, 35 pack years (quitting 2016) with PMH significant for asthma COPD overlap syndrome, allergies requiring IT, HLD, history of subarachnoid hemorrhage, GHASSAN not tolerant of BiPAP, on nocturnal oxygen. CT chest 03/2022 did not show air trapping. Allergy tests revealed mild reaction to alternaria tenuis. IgE and eosinophils normal. Patient was evaluated in 05/21/2022 for AECOPD and treated with Doxycycline and Prednisone. Since that time, patient has not required antibiotics and prednisone. However, he states he feels like he always has an infection. Today, patient reports increased cough productive of dark yellow/green phlegm. No hemoptysis. Occasional wheezing. No dyspnea at rest. Exertional dyspnea with minimal effort. Difficulty walking from the parking lot to the office. Claims to be consistently compliant with prescribed maintenance Rx Trelegy daily and Singulair at bedtime. 1-2 times weekly rescue bronchodilator use. 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 Wearing 2L supplemental oxygen. Did not tolerate BiPAP. DME: Lilli. PAST MEDICAL HISTORY Diagnosis Date Allergic rhinitis Asthma COPD (chronic obstructive pulmonary disease) ([facility]) Other and unspecified hyperlipidemia SAH (subarachnoid hemorrhage) ([facility]) Sleep apnea Tobacco abuse Quit 2015. Allergies: Codeine Unknown Environmental [Othe* Other: See Comments Comment:Molds and grasses as verified by skin testing Vicodin [Hydrocodon* Mental Status Change montelukast (SINGULAIR) 10 mg tablet TAKE 1 TABLET BY MOUTH EVERYDAY AT BEDTIME busPIRone (BUSPAR) 10 mg tablet TAKE 1 TABLET BY MOUTH TWICE A DAY TRELEGY ELLIPTA 100-62.5-25 mcg inhalation powder INHALE 1 PUFF INSTRUCTED ONCE DAILY. loratadine 10 mg cap Take 10 mg by mouth once daily. CPAP/BIPAP/OTHER Type .CPAPSettings into a note to see current settings/supplies/DME information. CPAP Change Auto bilevel settings to EPAP min 3 cmH2O, IPAP max 15 cmH2O, with pressure support 4-6 cmH2O. Please increase ramp to [address] (PROTONIX) 40 mg tablet TAKE 1 TABLET BY MOUTH EVERY DAY MULTIVITAMIN ORAL Take by mouth. States contains vitamin b,c,d albuterol HFA (PROVENTIL HFA, VENTOLIN HFA) 90 mcg/actuation inhaler Inhale 2 Puffs as instructed every 4 hours as needed. NEEDED FOR SHORTNESS OF BREATH AND WHEEZING aspirin, enteric coated (ASPIR-81) 81 mg EC tablet Take 1 tablet by mouth once daily. Social History Tobacco Use Smoking status: Former Packs/day: 1.00 Years: 35.00 Pack years: 35.00 Types: Cigarettes Start date: 1979 Quit date: 09/06/2015 Years since quittin.1 Smokeless tobacco: Current Types: Chew Tobacco comments: No smokers in current home. Vaping Use Vaping Use: Never used Substance Use Topics Alcohol use: Yes Comment: 1 beer a night Drug use: Yes Comment: CBD gummies Family History Problem Relation Age of Onset Diabetes Mother None Father other (overdose) Sister Allergies Daughter COPD No Family History Asthma No Family History PAST SURGICAL HISTORY Procedure Laterality Date COLONOSCOPY FLX DX W/COLLJ SPEC WHEN PFRMD 04/10/2019 Colonoscopy OTHER ANEURYSM REPAIR 01/04/2017 [facility] PAST SURGICAL HISTORY OF cyst on tailbone I reviewed the past medical history, family history, social history and surgical history with changes noted above and updated in EMR. IMMUNIZATIONS Prevnar - 05/17/2022 Pneumovax 23 - 05/17/2022, 05/26/2020 Influenza - 04/25/2022 COVID-19 - 11/12/2020, 10/22/2020, 04/25/2022 ROS: General: No fevers, chills or night sweats. No unintended weight loss. Eyes, Ears, nose, throat: Persistent post nasal drip, rhinorrhea. No purulent nasal discharge, epistaxis. No hoarseness. Vision stable. Cardiac: No angina, edema, orthopnea. Resp: See HPI. GI: No heartburn, dysphagia. Musculoskeletal: No pain. Neuro: No headache, focal weakness, tremor. Skin: No rash. Otherwise negative. PHYSICAL EXAMINATION: BP (P) 144/96 Pulse (P) 93 Resp (P) 20 Wt 74.8 kg (165 lb) SpO2 (P) 97% BMI 29.23 kg/m Gen: No acute distress. Cooperative with examination. HEENT: Normocephalic. Sclera, conjunctiva clear. Oral hygeine and dentition good. No thrush. Resp: No stridor, accessory respiratory muscle use, supra-sternal or intercostal retractions. No wheezes, crackles. CV: Regular rythm. Heart tones normal. Radial pulses normal. Abd: Non distended. MSK: No kyphoscoliosis. Ext: Warm and well perfused. No clubbing, cyanosis, edema. Skin: No rash, ecchymoses. Neuro: Mental status normal. Affect normal. No tremor. DATA: PFT, 03/04/2022 IMPRESSION: Spirometry indicates very severe obstruction. The diffusing capacity is severely reduced. Electronically Signed On 03-04-2022 16:50:57 EDT by Millie Sánchez M.D. CT chest, 03/16/2022 IMPRESSION: No CT evidence of acute abnormality. Progressed evaluation of bronchial constriction, high resolution CT would be most helpful. Comparison: Chest x-ray of 01/23/2019 RESULT: Limitations: None. Lines, tubes, and devices: None. Lung parenchyma and airways: Patient has known COPD No consolidation. No suspicious pulmonary nodule. The central airways are patent. Pleural space: No pleural effusion. No pleural thickening. Lower neck, lymph nodes, and mediastinum: The imaged thyroid gland is normal. No lymphadenopathy in the supraclavicular, axillary, mediastinal, or hilar regions. Heart, pericardium, and thoracic vessels: The thoracic aorta and main pulmonary artery are normal in caliber. The cardiac chambers are normal in size. Coronary artery atherosclerotic calcifications are noted, although the study is not optimized for coronary assessment. No pericardial effusion or thickening. Bones and soft tissues: No destructive bone lesion. Chest wall is unremarkable. Upper abdomen: No abnormality in the imaged upper abdomen. Echocardiogram, 12/16/2019 CONCLUSIONS: - Technically difficult exam due to body habitus and lung interference. - Exam indication: Shortness of Breath - The left ventricle is small. Left ventricular systolic function is normal. EF = 72 5% (2D biplane) Normal left ventricular diastolic function. - The right ventricle is normal in size. Right ventricular systolic function is normal. - No significant valvular disease. - Exam was compared with the prior echocardiographic exam performed on 07/13/2016 (Stress). Labs Component Latest Ref Rng & Units 03/11/2022 Adel Tree IgE <0.35 kU/l <0.35 Adel Tree Class Class 0 Class 0 [id number] Anthony Grass <0.35 kU/l <0.35 Anthony Grass Class Class 0 Class 0 Scarlet Grass IgE <0.35 kU/l <0.35 Scarlet Grass Class Class 0 Class 0 Short Ragweed IgE <0.35 kU/l <0.35 Short Ragweed Class Class 0 Class 0 Hunt's Quarters IgE <0.35 kU/l <0.35 Hunt[place]arters Class Class 0 Class 0 Cat Dander IgE <0.35 kU/l <0.35 Cat Dander Class Class 0 Class 0 Dog Dander IgE <0.35 kU/l <0.35 Dog Dander Class Class 0 Class 0 Cladosporium herbarum IgE <0.35 kU/l <0.35 Cladosporium herbarum Class Class 0 Class 0 Alternaria tenuis IgE <0.35 kU/l 2.10 (H) Alternaria tenuis Class Class 0 Class 2 (A) D. farinae IgE <0.35 kU/l <0.35 D. farinae Class Class 0 Class 0 Abs Eosin <0.46 k/uL 0.20 IgE <114.0 kU/l 89.7 Component Ref Range & Units 5 yr ago 7 yr ago Alpha 1 Antitrypsin 90 - 200 mg/dL 127 196 R, CM ASSESSMENT/PLAN: 1. Stage 4 very severe COPD by GOLD classification (HCC) - ICD9: 496, ICD10: J44.9 (primary diagnosis) Alpha-1 normal. Symptomatically short of breath with minimal effort. Will try increasing Trelegy ellipta to 200 mcg. Albuterol HFA inhaler, 2 inhalations 10-15 minutes prior to activities associated with shortness of breath, and as needed for rescue relief of shortness of breath or wheezing, up to 4 times daily. Do not recommend daily Azithromycin at this time. Last antibiotics for AECOPD in May 2022. Will check oximetry with ambulation at next OV. - PARKING FOR HANDICAPPED - FLUTICASONE FUR. 200 MCG-UMECLID 62.5 MCG-VILANT 25 MCG INHALAT.POWDER - OXIMETRY WITH AMBULATION 2. Asthma-COPD overlap syndrome (HCC) - ICD9: 493.20, ICD10: J44.9 See #1. - FLUTICASONE FUR. 200 MCG-UMECLID 62.5 MCG-VILANT 25 MCG INHALAT.POWDER 3. History of seasonal allergies - ICD9: V15.09, ICD10: Z88.9 Continue with Singulair and loratidine. IgE and eosinophil normal. 4. Former cigarette smoker - ICD9: V15.82, ICD10: Z87.891 Former 35 pack year smoker with sequelae of emphysema Continue abstinence. Will qualify for lung cancer screening at next OV. 5. GHASSAN (obstructive sleep apnea) - ICD9: 327.23, ICD10: G47.33 Not compliant with PAP therapy. 6. Dependence on nocturnal oxygen therapy - ICD9: V46.2, ICD10: Z99.81 Continue supplemental oxygen at night. Portions of this documentation were copied and pasted from previous office visit notes in order to provide a cohesive continuity of the history. The note has been reviewed and edited and updated as necessary. Helen Newman PA-C documented in this encounter [facility] 11-04-2022 Miscellaneous Notes Please schedule patient for a follow-up appointment. betty documented in this encounter [facility] 05-21-2022 History of Presen t illness Narrative Subjective HPI HPI Karli Duke is a 56 year old male who presents today for CC of cough, sputum production/yellow, congestion, sob. This started 1 week/getting worse. Has tried otc medication for relief. Risk factors hx of copd. .Patient presents with: Cough: Cough, congestion, yellow/green drainage-COPD exacerbation x 1 week PAST MEDICAL HISTORY Diagnosis Date Allergic rhinitis Asthma COPD (chronic obstructive pulmonary disease) (HCC) Other and unspecified hyperlipidemia SAH (subarachnoid hemorrhage) (HCC) Sleep apnea Tobacco abuse Quit 2015. PAST SURGICAL HISTORY Procedure Laterality Date COLONOSCOPY FLX DX W/COLLJ SPEC WHEN PFRMD 04/10/2019 Colonoscopy OTHER ANEURYSM REPAIR 01/04/2017 [facility] PAST SURGICAL HISTORY OF cyst on tailbone ALLERGIES Codeine, Environmental [Other], and Vicodin [Hydrocodone-Acetaminophen] MEDICATIONS montelukast (SINGULAIR) 10 mg tablet TAKE 1 TABLET BY MOUTH EVERYDAY AT BEDTIME busPIRone (BUSPAR) 10 mg tablet TAKE 1 TABLET BY MOUTH TWICE A DAY TRELEGY ELLIPTA 100-62.5-25 mcg inhalation powder INHALE 1 PUFF INSTRUCTED ONCE DAILY. loratadine 10 mg cap Take 10 mg by mouth once daily. CPAP/BIPAP/OTHER Type .CPAPSettings into a note to see current settings/supplies/DME information. CPAP Change Auto bilevel settings to EPAP min 3 cmH2O, IPAP max 15 cmH2O, with pressure support 4-6 cmH2O. Please increase ramp to [address] (PROTONIX) 40 mg tablet TAKE 1 TABLET BY MOUTH EVERY DAY MULTIVITAMIN ORAL Take by mouth. States contains vitamin b,c,d albuterol HFA (PROVENTIL HFA, VENTOLIN HFA) 90 mcg/actuation inhaler Inhale 2 Puffs as instructed every 4 hours as needed. NEEDED FOR SHORTNESS OF BREATH AND WHEEZING aspirin, enteric coated (ASPIR-81) 81 mg EC tablet Take 1 tablet by mouth once daily. predniSONE (DELTASONE) 10 mg tablet Take 4 tabs daily for 3 days, then 2 tabs daily for 3 days, then 1 tab daily for 3 days with food. doxycycline monohydrate 100 mg tablet Take 1 tablet by mouth twice daily for 7 days. MUCUS RELIEF ER 600 mg 12 hr tablet TAKE 2 TABLETS BY MOUTH TWICE A DAY FAMILY HISTORY Problem Relation Age of Onset Diabetes Mother None Father other (overdose) Sister Allergies Daughter COPD No Family History Asthma No Family History Social History Tobacco Use Smoking status: Former Packs/day: 1.00 Years: 35.00 Pack years: 35.00 Types: Cigarettes Start date: 1979 Quit date: 09/06/2015 Years since quittin.7 Smokeless tobacco: Current Types: Chew Tobacco comments: No smokers in current home. Vaping Use Vaping Use: Never used Substance Use Topics Alcohol use: Yes Comment: 1 beer a night Drug use: Yes Comment: CBD gummies ROS Objective Blood pressure 122/80, pulse 82, temperature 36.6 C (97.8 F), temperature source Tympanic, resp. rate 18, weight 73.9 kg (163 lb), SpO2 95 %. Physical Exam Constitutional: General: He is not in acute distress. Appearance: He is not toxic-appearing or diaphoretic. HENT: Head: Normocephalic and atraumatic. Cardiovascular: Rate and Rhythm: Normal rate and regular rhythm. Heart sounds: Normal heart sounds, S1 normal and S2 normal. Pulmonary: Effort: Pulmonary effort is normal. Tachypnea (slightly shallow.) present. Breath sounds: Wheezing present. No decreased breath sounds, rhonchi or rales. Neurological: Mental Status: He is alert and oriented to person, place, and time. Gait: Gait is intact. ASSESSMENT/PLAN: 1. COPD with exacerbation (HCC) - ICD9: 491.21, ICD10: J44.1 - Discussed supportive care - Limit exposure to smoke and other inhaled irritants - Discussed possible red flags and when to seek medical attention - Follow up in 3-5 days or sooner if no better or worse -If you experience chest pain/shortness of breath go to ER - PREDNISONE 10 MG TABLET - DOXYCYCLINE MONOHYDRATE 100 MG TABLET Agrees to plan Nigel Taveras APRN.CNP documented in this encounter [facility] 04-25-2022 Miscellaneous Notes Your prescription has been refilled as requested. The following approved medication requests have been transmitted electronically. Requested Prescriptions Pending Prescriptions Disp Refills montelukast (SINGULAIR) 10 mg tablet [Pharmacy Med Name: MONTELUKAST SOD 10 MG TABLET] 90 tablet 3 Sig: TAKE 1 TABLET BY MOUTH EVERYDAY AT BEDTIME busPIRone (BUSPAR) 10 mg tablet [Pharmacy Med Name: BUSPIRONE HCL 10 MG TABLET] 180 tablet 3 Sig: TAKE 1 TABLET BY MOUTH TWICE A DAY Gurmeet Tao APRN.CNP Patient phones requesting refills as follows: Requested Prescriptions Pending Prescriptions Disp Refills montelukast (SINGULAIR) 10 mg tablet [Pharmacy Med Name: MONTELUKAST SOD 10 MG TABLET] 90 tablet 3 Sig: TAKE 1 TABLET BY MOUTH EVERYDAY AT BEDTIME busPIRone (BUSPAR) 10 mg tablet [Pharmacy Med Name: BUSPIRONE HCL 10 MG TABLET] 180 tablet 3 Sig: TAKE 1 TABLET BY MOUTH TWICE A DAY THOMAS-05/05/20 Labs-03/04/22 NOV-none meds filled 04/26/21 Please review and advise. Oralia Buchanan LPN documented in this encounter [facility] 03-16-2022 History of Presen t illness Narrative Radiology Service Progress Note PATIENT NAME: Karli Duke DATE OF SERVICE: March 16, 2022 TIME: 1:59 PM PATIENT IDENTITY VERIFICATION COMPLETED USING TWO (2) IDENTIFIERS: Name and Date of confirmed by patient verbally. FALL SCREENING: Has the patient had 2 falls in the last year or 1 fall with injury or currently using an Ambulatory Assistive Device (Walker, Cane, Wheelchair, Crutches, etc.)? No PATIENT GENDER DATA: Male PATIENT RELEVANT IMPLANT DATA REVIEWED: Yes RADIOLOGY DEPARTMENT: CT; Exam(s) Completed: Chest PERIPHERAL IV DATA: Not applicable SIGNED BY: RT Oralia(R) March 16, 2022 1:59 PM documented in this encounter [facility] 03-14-2022 Miscellaneous Notes Duplicate request. Yulisa Keith LPN documented in this encounter [facility] 03-04-2022 History of Presen t illness Narrative Images from the original note were not included. . [facility] [place] Note Patient name: Karli Duke PCP: Alberto Avelar MD CC: SOB HPI: Karli Duke 56 year old male former [id number] smoker having quit in 2016 with PMH significant for asthma COPD overlap syndrome, asthma since childhood, allergies requiring IT, HLD, history of subarachnoid hemorrhage, obstructive sleep apnea not tolerant of BiPAP, on nocturnal oxygen former patient of Dr. James. Inhaled therapy consists of Trelegy Ellipta and as needed albuterol. Main issues today are continued ABBOTT, worse with exposure to cold air and humidity. He has had more trouble with cough and chest congestion, related to difficulty with his allergies and sinus drainage. Unable to expectorate phlegm. Forceful coughing causes him to lose his breath. Taking OTC antihistamine, Singulair and nasal saline. Not wheezing. No chest pain. Not sleeping well, trouble PAP. Fatigued during the day. No peripheral edema. DATA: COPD Assessment Test I never cough 0 1 2 3 4 5 I cough all the time; Score 3 I have no phlegm 0 1 2 3 4 5 My chest is completely full of phlegm; Score 3 My chest does not feel tight at all 0 1 2 3 4 5 My chest chest feels very tight; Score 1 When I walk up a hill or one flight of stairs I am not breathless 0 1 2 3 4 5 When I walk up a hill or one flight or stairs I am very breathless; Score 4 I am not limited doing any activities at home 0 1 2 3 4 5 I am very limited doing activities at home; Score 4 I am confident leaving my home despite my lung condition 0 1 2 3 4 5 I am not at all confident leaving my home because of my lung condition; Score 1 I sleep soundly 0 1 2 3 4 5 don't sleep soundly because of my lungs; Score 1 I have lots of energy 0 1 2 3 4 5 I have no energy at all; Score 3 Total Score: 20 Nocturnal oximetry 02/22/22: Adequate saturation on 2 L with BiPAP. Patient states he was only wearing oxygen and not PAP PFT today: Very severe obstruction with severe reduction in diffusion PFT 03/2021: Very severe obstruction Labs: CBC normal Component Ref Range & Units 5 yr ago 7 yr ago Alpha 1 Antitrypsin 90 - 200 mg/dL 127 196 R, CM Imaging / Diagnostic Studies: CTA chest [facility] 08/2019: I personally reviewed the images which show some upper lobe emphysema, RLL atelectasis, hyperinflation PAST MEDICAL HISTORY Diagnosis Date Allergic rhinitis Asthma COPD (chronic obstructive pulmonary disease) ([facility]) Other and unspecified hyperlipidemia SAH (subarachnoid hemorrhage) ([facility]) Sleep apnea Tobacco abuse Quit 2015. ALLERGIES Allergen Reactions Codeine Unknown Environmental [Othe* Other: See Comments Molds and grasses as verified by skin testing Vicodin [Hydrocodon* Mental Status Change loratadine 10 mg cap Take 10 mg by mouth once daily. pantoprazole DR (PROTONIX) 40 mg tablet TAKE 1 TABLET BY MOUTH EVERY DAY MULTIVITAMIN ORAL Take by mouth. States contains vitamin b,c,d MUCUS RELIEF ER 600 mg 12 hr tablet TAKE 2 TABLETS BY MOUTH TWICE A DAY montelukast (SINGULAIR) 10 mg tablet Take 1 tablet by mouth daily at bedtime. TRELEGY ELLIPTA 100-62.5-25 mcg INHALE 1 PUFF INSTRUCTED ONCE DAILY. albuterol HFA (PROVENTIL HFA, VENTOLIN HFA) 90 mcg/actuation inhaler Inhale 2 Puffs as instructed every 4 hours as needed. NEEDED FOR SHORTNESS OF BREATH AND WHEEZING aspirin, enteric coated (ASPIR-81) 81 mg EC tablet Take 1 tablet by mouth once daily. CPAP/BIPAP/OTHER Type .CPAPSettings into a note to see current settings/supplies/DME information. CPAP Change Auto bilevel settings to EPAP min 3 cmH2O, IPAP max 15 cmH2O, with pressure support 4-6 cmH2O. Please increase ramp to 20 minutes. busPIRone (BUSPAR) 10 mg tablet Take 1 tablet by mouth twice daily. Social History Tobacco Use Smoking status: Former Packs/day: 1.00 Years: 35.00 Pack years: 35.00 Types: Cigarettes Start date: 1979 Quit date: 09/06/2015 Years since quittin.4 Smokeless tobacco: Current Types: Chew Tobacco comments: No smokers in current home. 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: dog, cat FAMILY HISTORY Problem Relation Age of Onset Diabetes Mother None Father other (overdose) Sister Allergies Daughter COPD No Family History Asthma No Family History PAST SURGICAL HISTORY Procedure Laterality Date COLONOSCOPY FLX DX W/COLLJ SPEC WHEN PFRMD 04/10/2019 Colonoscopy OTHER ANEURYSM REPAIR 01/04/2017 [facility] PAST SURGICAL HISTORY OF cyst on tailbone PMH, Social history, family history and surgical history reviewed and updated in EMR REVIEW OF SYSTEMS: CONSTITUTIONAL: No fevers, chills, nightsweats, unintended weight loss HEENT: No headache. Positive nasal congestion/sinus symptoms, problematic allergies. EYES: No diplopia or blurry vision. CARDIOVASCULAR: No chest pain, palpitations, orthopnea, edema. PULM: See HPI GI: No dysphagia/odynophagia, problematic reflux, NEURO: No new balance problems, peripheral weakness/paresthesias or numbness of concern. Poor sleep PSY: No concerns regarding depression, anxiety INTEGUMENTARY: No new skin changes or rashes PHYSICAL EXAMINATION: BP 134/84 Pulse 82 Resp 14 Ht 5' 3 (1.60m) Wt 163 lb (73.9kg) SpO2 96% BMI 28.88 kg/(m^2). General Appearance: Age appropriate male, NAD Skin: Skin color, texture, turgor normal, no suspicious rashes or lesions. Head: Normocephalic, no masses, lesions, tenderness or abnormalities. Eyes: Sclera, conjunctiva normal Oropharynx: Upper plate, no thrush Neck: No JVD, no masses Chest Wall: Increased AP diameter Lungs: Not labored, diminished breath sounds, no wheezes or crackles Heart: RRR, no murmur Extremities: No edema, no clubbing Musculoskeletal: No joint deformities or effusions Assessment/Plan: Very severe COPD, GOLD stage 4 -Continued decline in lung function. Severity of obstruction out of proportion to history but certainly can be due to longstanding asthma, past smoking and occupational exposure. Brings up the question of constrictive bronchiolitis -Continue triple inhaler therapy -Oxygen at night -Will be a candidate for low dose chest CT for cancer screening next year Asthma with COPD -In light of asthma history and worsening lung function, allergic component could be a contributing factor -Check Eo count and IgE for consideration of biologic Possible constrictive bronchiolitis -See #1 -Insp/expiratory chest images Former cigarette smoker -Former 35 pack year smoker with sequelae of emphysema -Continued abstinence -See #1 Allergies -Continue current therapy -Check for cat and dog allergy Millie Sánchez MD [facility] [place] documented in this encounter [facility] 03-04-2022 History of Presen t illness Narrative PULM FUNCTION SMARTBLOCK: Provider: Millie Sánchez MD Assisting Tech: ERICH Bassett Spirometry: 1 DLCO: 1 documented in this encounter [facility] 03-04-2022 Nurse Note Intake information documented in the prior visit with ERICH Bassett today. documented in this encounter [facility] 02-25-2022 History of Presen t illness Narrative Nocturnal Oximetry, BiPAP with 2 L, 02/22/2022. Recording interval: 5:5:46 High pulse: 88 Low pulse: 56 Highest spO2: 99% Lowest spO2: 86% Time with spO2 < 88%: 0.8 minutes Recommendation: Based on above results, current therapy is adequate. I have received and reviewed the outside records noted above. Helen Newman PA-C [facility] [place] documented in this encounter [facility] 02-03-2022 History of Presen t illness Narrative Images from the original note were not included. [facility] Follow up/ Established patient visit Date of last visit : 12/03/21 Assessment and Plan: ASSESSMENT/PLAN: 1. GHASSAN (obstructive sleep apnea) - ICD9: 327.23, ICD10: G47.33 Patient with known history of GHASSAN of severe nature with risk factors of crowded airway and mildly elevated BMI, with additional history of COPD. At time of titration was unable to tolerate CPAP. Now unable to tolerate Auto bilevel PAP settings. Discussed treatment options with pt. Note that this included options besides PAP including oral airway appliance and surgeries. However, first feel appropriate to troubleshoot PAP issues. Reviewed sleep studies with pt and while REM was not normalized on lower PAP settings, the overall AHI was. With focus being on the overall AHI, will lower PAP settings to: EPAP min 3, IPAP max 7 and PS 4-6 cmH2O. Also will increase ramp to 30 minutes. No mask complaints and thus will make no changes to it at this time. Once pt tolerating PAP, will need nocturnal oximetry at home while wearing PAP to determine if need for supplemental O2 (currently using when not using PAP -- not used the night of titration). Explained to pt that if sill having issues with PAP at lower pressures, he can try to bleed O2 into the device as well to see if makes a difference. Note on night of sleep study mean O2s were about 90% with use of bilevel. Pt agrees with plan above. Will attempt to get sooner follow up in 3-4 weeks so as to correct PAP issues as soon as possible to avoid those factors that might promote future non-compliance. Shaun Hernandez MD Interval history : Pt consents to virtual visit via [employer]. Here for follow up for mgmt of ghassan. SLEEP APNEA Sleep apnea type : GHASSAN, Most Recent Apnea-Hypopnea Index (AHI): 32.4 Treatment : PAP therapy DME: [facility] PAP History:, Reports that he has not been using pap therapy because he starts panic He had pneumonia in 2019 and now oxygen saturation dropped to 35% for 3 days. His chest hurts and he feels sore for 5-10 minutes when attempting to use pap therapy. He is no longer smoking; quit in 2014. Mask does not bother him. Objective PAP compliance data: not available PATIENT-ENTERED QUESTIONNAIRE SLEEP SCORES Sleep Questions 02/02/2022 Reason for visit: Unsure Average hours slept in 24 hours: - Average hours of CPAP per night: - Percent of nights CPAP used at least 4 hours: - Accidents or near accidents due to drowsy drivin [place] Sleepiness Scale 12/26/2021 02/02/2022 Score 8 (No daytime sleepiness) 11 (present daytime sleepiness) PROMIS CAT Sleep Disturbance 12/26/2021 02/02/2022 PROMIS Sleep Disturbance T-Score 54 (within normal limits) 56 (mild) Insomnia Severity Index 02/02/2022 Score 6 PHQ-9 12/26/2021 02/02/2022 Score 3 2 PROMIS Global Health - (T-Scores - the mean of general population = 50. Five points is a clinically meaningful difference.) 05/13/2020 12/26/2021 Physical T-Score 42.3 37.4 Mental T-Score 59 50.8 PMH, PSH, SH: reviewed SLEEP RELATED ROS Review of Systems Constitutional: Positive for fatigue. HENT: Positive for congestion. Respiratory: Positive for difficulty breathing. Negative for cough. Cardiovascular: Negative. Neurological: Positive for headaches. Negative for dizziness. ALLERGIES Allergen Reactions Codeine Unknown Environmental [Othe* Other: See Comments Molds and grasses as verified by skin testing Vicodin [Hydrocodon* Mental Status Change CURRENT MEDICATIONS: CPAP Change Auto bilevel settings to EPAP min 3 cmH2O, IPAP max 15 cmH2O, with pressure support 4-6 cmH2O. Please increase ramp to [address] (PROTONIX) 40 mg tablet TAKE 1 TABLET BY MOUTH EVERY DAY MULTIVITAMIN ORAL Take by mouth. States contains vitamin b,c,d MUCUS RELIEF ER 600 mg 12 hr tablet TAKE 2 TABLETS BY MOUTH TWICE A DAY busPIRone (BUSPAR) 10 mg tablet Take 1 tablet by mouth twice daily. montelukast (SINGULAIR) 10 mg tablet Take 1 tablet by mouth daily at bedtime. TRELEGY ELLIPTA 100-62.5-25 mcg INHALE 1 PUFF INSTRUCTED ONCE DAILY. albuterol HFA (PROVENTIL HFA, VENTOLIN HFA) 90 mcg/actuation inhaler Inhale 2 Puffs as instructed every 4 hours as needed. NEEDED FOR SHORTNESS OF BREATH AND WHEEZING hydrOXYzine HCl (ATARAX) 25 mg tablet TAKE 1 TO 2 TABLETS BY MOUTH AT BEDTIME AND 1 EVERY 6 HOURS NEEDED FOR ITCHING aspirin, enteric coated (ASPIR-81) 81 mg EC tablet Take 1 tablet by mouth once daily. PHYSICAL EXAMINATION: General appearance: NAD, pleasant Mental status: Awake & alert Constitutional: WNL Neuro: Fluent speech IMPRESSION / PLAN: 56 yo male with a pmh of copd presents for management of sleep apnea. Severe osas: Even with significant decrease in pressure, he has not been able to tolerate pap therapy. He starts to panic when using autobipap. He had pneumonia and difficulty breathing. Trying to use pap therapy brings back this trauma and when he attempts to use pap therapy, he feels discomfort in his chest because pressure feels too high. He feels lungs have too much air. He continues to use oxygen during sleep. Uncertain if a trilogy or other modality of treatment. He has appt with Pulmonology ib 03/04/22. - [facility]: Submit download report. Alvaro Dorman APRN.MALTER OPERATOR I spent a total of 25 minutes on the date of the service which included preparing to see the patient, [id number] patient care, completing clinical documentation, counseling and educating the patient/family/caregiver and ordering medications, tests, or procedures. documented in this encounter [facility] 01-06-2022 Miscellaneous Notes Received RX form for CPAP supplies by fax from [facility] for the provider's signature. Faxed signed form to [facility] fax# [phone]. # [phone] documented in this encounter [facility] 12-30-2021 History of Presen t illness Narrative NEW PATIENT (CONSULT) HISTORY AND PHYSICAL EXAM (Virtual Visit with Video) PRIMARY CARE PHYSICIAN: Alberto Avelar MD REASON FOR CONSULT: GHASSAN REFERRING PHYSICIAN: Helen Newman PA-C CHIEF COMPLAINT: GHASSAN For this virtual visit, the patient has been identified by name and (MRN and photo identification as well if available). Those taking part in visit: Consent for this visit received from patient. HISTORY OF PRESENT ILLNESS: Karli Duke is a 56 year old male, with a PMH significant for GHASSAN as determined by overnight PSG performed at [facility] on 07/26/2019 with AHI of 32.4. No other significant findings were reported at the time of that study and per review of the report. Patient reports he is now on CPAP, and states it hurts his chest when he has it on. Note a PAP titration was performed 10/2021 at [facility] and recommended Auto bilevel PAP. Set at IPAP max 24, EPAP min 10 and PS of 4-6 cmH2O (note PLMI was 70 that night). He has only had his PAP device for about 3 weeks and simply cannot wear it since receiving it due to feeling like too much pressure. States that pressure is too much from time of turning on the device. He has Resmed Airfit F20 and does not find it uncomfortable. He works second shift. He has no issues falling asleep at night at about 3AM (gets off work at 11PM and home around [place]). No RLS symptoms. Wakes to start the day about 10AM. Tired upon waking. Not waking up during the night. No parasomnias. No PLMs that are noted by witnesses. No naps during the day. No falling asleep driving. However drinks a lot of coffee all day long. Pt has worn O2 at night although did not wear the night of the study. Sleep Questionnaire Data Depression Screening 03/08/2016 09/22/2017 12/26/2021 PHQ-2 Score 0 1 0 PHQ-9 Score - - 3 PED PHQ-9 03/08/2016 09/22/2017 12/26/2021 Little interest or pleasure in doing things - - Not at all Feeling down, depressed, or hopeless - - Not at all Trouble falling or staying asleep, or sleeping too much - - Not at all Feeling tired or having little energy - - Nearly every day Poor appetite or overeating - - Not at all Feeling bad about yourself - or that you are a failure or have let yourself or your family down - - Not at all Trouble concentrating on things, such as reading the newspaper or watching television - - Not at all Moving or speaking so slowly that other people could have noticed. Or the opposite - being so fidgety or restless that you have been moving around a lot more than usual - - Not at all Thoughts that you would be better off , or of hurting yourself in some way - - Not at all If you checked off any problems, how difficult have these problems made it for you to do your work, take care of things at home, or get along with other people? - - Not difficult at all PHQ-9 Score - - 3 (None-Minimal Depression) [place] Sleepiness Scale 03/08/2016 09/22/2017 12/26/2021 Score - - 8 (No daytime sleepiness) REVIEW OF SYSTEMS GENERAL:No weight loss, malaise or fevers. HEENT:Negative for frequent or significant headaches, No changes in hearing or vision, no nose bleeds or other nasal problems NECK:Negative for lumps, goiter, pain and significant neck swelling RESPIRATORY: Negative for cough, wheezing or shortness of breath. CARDIOVASCULAR: Negative for chest pain or palpitations. GASTROINTESTINAL: Negative for abdominal discomfort, blood in stools or black stools or change in bowel habits GENITOURINARY: No history of dysuria, frequency or incontinence MUSCULOSKELETAL: Negative for joint pain or swelling, back pain or muscle pain. NEUROLOGIC:Negative for focal numbness or weakness, headaches and dizziness or syncope, vision changes, speech/language changes, changes in gait or falls -- besides those complaints as above in HPI. SKIN:Negative for lesions, rash, and itching. HEMATOLOGIC/LYMPHATIC/IMMUNOLOGI C:Negative for prolonged bleeding, bruising easily or swollen nodes. ENDOCRINE: Negative for cold or heat intolerance, polyuria, polydipsia and goiter. The remainder of the ROS was reviewed and is negative. LAB/IMAGING: Reviewed and include: WBC (k/uL) Date Value 12/31/2020 7.52 RBC (m/uL) Date Value 12/31/2020 4.98 Hemoglobin (g/dL) Date Value 12/31/2020 16.0 Hematocrit (%) Date Value 12/31/2020 46.3 MCV (fL) Date Value 12/31/2020 93.0 MCH (pG) Date Value 12/31/2020 32.1 MCHC (g/dL) Date Value 12/31/2020 34.6 RDW-CV (%) Date Value 12/31/2020 12.0 Platelet Count (k/uL) Date Value 12/31/2020 278 MPV (fL) Date Value 12/31/2020 8.4 (L) Glucose (mg/dL) Date Value 12/31/2020 112 (H) BUN (mg/dL) Date Value 12/31/2020 11 Creatinine (mg/dL) Date Value 12/31/2020 0.92 Sodium (mmol/L) Date Value 12/31/2020 141 Potassium (mmol/L) Date Value 12/31/2020 4.2 Chloride (mmol/L) Date Value 12/31/2020 102 CO2 (mmol/L) Date Value 12/31/2020 29 Protein, Total (g/dL) Date Value 04/20/2017 7.2 Albumin (g/dL) Date Value 04/20/2017 4.3 Calcium (mg/dL) Date Value 12/31/2020 10.0 Alkaline Phosphatase (U/L) Date Value 04/20/2017 64 Bilirubin, Total (mg/dL) Date Value 04/20/2017 0.2 AST (U/L) Date Value 04/20/2017 27 ALT (U/L) Date Value 04/20/2017 42 MEDICATIONS: pantoprazole DR (PROTONIX) 40 mg tablet TAKE 1 TABLET BY MOUTH EVERY DAY MULTIVITAMIN ORAL Take by mouth. States contains vitamin b,c,d MUCUS RELIEF ER 600 mg 12 hr tablet TAKE 2 TABLETS BY MOUTH TWICE A DAY busPIRone (BUSPAR) 10 mg tablet Take 1 tablet by mouth twice daily. montelukast (SINGULAIR) 10 mg tablet Take 1 tablet by mouth daily at bedtime. TRELEGY ELLIPTA 100-62.5-25 mcg INHALE 1 PUFF INSTRUCTED ONCE DAILY. albuterol HFA (PROVENTIL HFA, VENTOLIN HFA) 90 mcg/actuation inhaler Inhale 2 Puffs as instructed every 4 hours as needed. NEEDED FOR SHORTNESS OF BREATH AND WHEEZING hydrOXYzine HCl (ATARAX) 25 mg tablet TAKE 1 TO 2 TABLETS BY MOUTH AT BEDTIME AND 1 EVERY 6 HOURS NEEDED FOR ITCHING aspirin, enteric coated (ASPIR-81) 81 mg EC tablet Take 1 tablet by mouth once daily. HISTORIES PAST MEDICAL HISTORY Diagnosis Date Allergic rhinitis Asthma COPD (chronic obstructive pulmonary disease) ([facility]) Other and unspecified hyperlipidemia SAH (subarachnoid hemorrhage) ([facility]) Sleep apnea Tobacco abuse Quit 2015. FAMILY HISTORY Problem Relation Age of Onset Diabetes Mother None Father Allergies Daughter COPD No Family History Asthma No Family History SOCIAL HISTORY Social History Tobacco Use Smoking status: Former Smoker Packs/day: 1.00 Years: 35.00 Pack years: 35.00 Start date: 1979 Quit date: 09/06/2015 Years since quittin.3 Smokeless tobacco: Current User Types: Chew Tobacco comment: No smokers in current home. Vaping Use Vaping Use: Never used Substance Use Topics Alcohol use: Yes Comment: 1 beer a night Drug use: Yes Comment: CBD gummies PHYSICAL EXAMINATION There were no vitals taken for this visit. GENERAL EXAM: General appearance: NAD, pleasant. HEENT: Jackson IV NECK: ROM nml. Lungs: No audible cough, wheeze, sob. NEUROLOGICAL EXAM: General: Awake, alert, oriented x3 (person,place,time), speech fluent, no dysarthria; comprehension, naming, repetition intact. CN: EOMI, face symmetric, hearing is intact, palate and tongue movements are intact and symmetric. SCM and trapezius strength symmetric. Motor: PINEDO equal and symmetric. Coordination: FNF, NICK intact. Assessment and Plan: ASSESSMENT/PLAN: 1. GHASSAN (obstructive sleep apnea) - ICD9: 327.23, ICD10: G47.33 Patient with known history of GHASSAN of severe nature with risk factors of crowded airway and mildly elevated BMI, with additional history of COPD. At time of titration was unable to tolerate CPAP. Now unable to tolerate Auto bilevel PAP settings. Discussed treatment options with pt. Note that this included options besides PAP including oral airway appliance and surgeries. However, first feel appropriate to troubleshoot PAP issues. Reviewed sleep studies with pt and while REM was not normalized on lower PAP settings, the overall AHI was. With focus being on the overall AHI, will lower PAP settings to: EPAP min 3, IPAP max 7 and PS 4-6 cmH2O. Also will increase ramp to 30 minutes. No mask complaints and thus will make no changes to it at this time. Once pt tolerating PAP, will need nocturnal oximetry at home while wearing PAP to determine if need for supplemental O2 (currently using when not using PAP -- not used the night of titration). Explained to pt that if sill having issues with PAP at lower pressures, he can try to bleed O2 into the device as well to see if makes a difference. Note on night of sleep study mean O2s were about 90% with use of bilevel. Pt agrees with plan above. Will attempt to get sooner follow up in 3-4 weeks so as to correct PAP issues as soon as possible to avoid those factors that might promote future non-compliance. Shaun Hernandez MD I spent a total of 35 minutes on the date of the service which included preparing to see the patient, [id number] patient care, completing clinical documentation, obtaining and/or reviewing separately obtained history, performing a medically appropriate examination, counseling and educating the patient/family/caregiver, ordering medications, tests, or procedures, independently interpreting results (not separately reported) and communicating results to the patient/family/caregiver. documented in this encounter [facility] 12-17-2021 Miscellaneous Notes Received completed paperwork from providerFeliciano hoskins faxed back to [facility] at [phone]. Also faxed to [place] [facility]. documented in this encounter [facility] 11-25-2021 History of Presen t illness Narrative PSG with PAP titration, 10/13/2021 Interpretation: 1. The patient was off supine throughout this titration and thus, it is unknown if any of the tested PAP settings would normalize the supine-related AHI. The off-supine index, when not in REM sleep, was normalized on all of the tested PAP settings. The off-supine REM related AHI was normalized on the highest tested PAP setting of 22.16 cm H2O. 2. Frequency periodic limb movements (not associated with arousals) were noted throughout this study. The significance of this finding is uncertain in the setting of PAP titration. Clinical correlation is advised as this finding may suggest an underlying sleep related movement disorder such as restless leg syndrome. Recommendations: 1. Auto-bilevel PAP with comfort settings and PAP mask as above and set as follows: IPAP max 24 cmH2O, EPAP min 10 cmH2O with pressure support of 4-6 cmH2O. Recommend close clinical follow up and review of PAP data download after 4 weeks of PAP use to determine if changes to the PAP settings would be necessary (goal AHI <5.0). Dr. Shaun Hernandez documented in this encounter [facility] 11-25-2021 Miscellaneous Notes Referral placed to Dr. Hernandez to manage GHASSAN and BiPAP. Betty documented in this encounter [facility] Evaluation note Diagnosis GHASSAN (obstructive sleep apnea)- Primary Obstructive sleep apnea (adult) (pediatric) [facility] Diagnosis GHASSAN (obstructive sleep apnea) Obstructive sleep apnea (adult) (pediatric) GHASSAN on CPAP Obstructive sleep apnea (adult) (pediatric) [facility] Diagnosis Obstructive sleep apnea- Primary Obstructive sleep apnea (adult) (pediatric) [facility] Diagnosis Stage 3 severe COPD by GOLD classification (HCC) [facility] Diagnosis Stage 3 severe COPD by GOLD classification (HCC) [facility] Diagnosis Stage 4 very severe COPD by GOLD classification (HCC)- Primary 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 Former cigarette smoker Personal history of tobacco use, presenting hazards to health History of seasonal allergies Other allergy, other than to medicinal agents [facility] Diagnosis Pulmonary emphysema, unspecified emphysema type (HCC) [facility] Diagnosis Pulmonary emphysema, unspecified emphysema type (HCC) [facility] Diagnosis Stage 4 very severe COPD by 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 [facility] Diagnosis Post-nasal drip Postnasal drip [facility] Diagnosis COPD with exacerbation (HCC)- Primary Obstructive chronic bronchitis with exacerbation [facility] Diagnosis Stage 4 very severe COPD by GOLD classification (HCC)- Primary Asthma-COPD overlap syndrome (HCC) History of seasonal allergies Other allergy, other than to medicinal agents Former cigarette smoker Personal history of tobacco use, presenting hazards to health GHASSAN (obstructive sleep apnea) Obstructive sleep apnea (adult) (pediatric) Dependence on nocturnal oxygen therapy [facility] Diagnosis Pulmonary emphysema, unspecified emphysema type (HCC)- Primary Stage 4 very severe COPD by GOLD classification (HCC) [facility] Diagnosis Stage 4 very severe COPD by 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) [facility] Diagnosis Stage 4 very severe COPD by GOLD classification (HCC)- Primary [facility] Diagnosis Former cigarette smoker- Primary Personal history of tobacco use, presenting hazards to health [facility] Diagnosis Stage 4 very severe COPD by GOLD classification (HCC)- Primary Chronic hypoxemic respiratory failure (HCC) Chronic respiratory failure documented in this encounter [facility] note* Diagnosis Post-nasal drip Postnasal drip [facility] Diagnosis Lung nodules- Primary Other nonspecific abnormal finding of lung field documented in this encounter [facility] note* Diagnosis Lung nodules Other nonspecific abnormal finding of lung field Pulmonary emphysema, unspecified emphysema type (HCC) documented in this encounter [facility] note* Diagnosis Stage 4 very severe COPD by GOLD classification (HCC)- Primary Former cigarette smoker Personal history of tobacco use, presenting hazards to health Chronic hypoxemic respiratory failure (HCC) Chronic respiratory failure Lung nodules Other nonspecific abnormal finding of lung field documented in this encounter [facility] note* Diagnosis Stage 4 very severe COPD by GOLD classification (HCC) documented in this encounter [facility] note* Diagnosis Stage 4 very severe COPD by GOLD classification (HCC) documented in this encounter [facility] note* Diagnosis Stage 4 very severe COPD by GOLD classification (HCC)- Primary Former cigarette smoker Personal history of tobacco use, presenting hazards to health Chronic hypoxemic respiratory failure (HCC) Chronic respiratory failure Chronic sinusitis, unspecified location GHASSAN (obstructive sleep apnea) Obstructive sleep apnea (adult) (pediatric) documented in this encounter [facility] note* Diagnosis Stage 4 very severe COPD by 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) documented in this encounter [facility] note* Diagnosis Stage 4 very severe COPD by 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) documented in this encounter [facility] note* Diagnosis Pre-operative examination- Primary Preoperative examination, unspecified Screening for colon cancer Special screening for malignant neoplasms, colon Brain aneurysm Cerebral aneurysm, nonruptured Uncomplicated asthma, unspecified asthma severity, unspecified whether persistent Pulmonary emphysema, unspecified emphysema type (HCC) Tinea corporis Dermatophytosis of the body Stage 4 very severe COPD by GOLD classification (HCC) Chronic hypoxemic respiratory failure (HCC) Chronic respiratory failure documented in this encounter [facility] note* Diagnosis Pre-operative examination- Primary Preoperative examination, unspecified Screening for colon cancer Special screening for malignant neoplasms, colon Brain aneurysm Cerebral aneurysm, nonruptured Uncomplicated asthma, unspecified asthma severity, unspecified whether persistent Pulmonary emphysema, unspecified emphysema type (HCC) Tinea corporis Dermatophytosis of the body Stage 4 very severe COPD by GOLD classification (HCC)- Primary Dependence on continuous supplemental oxygen Former cigarette smoker Personal history of tobacco use, presenting hazards to health [facility] Diagnosis Pre-operative examination- Primary Preoperative examination, unspecified Screening for colon cancer Special screening for malignant neoplasms, colon Brain aneurysm Cerebral aneurysm, nonruptured Uncomplicated asthma, unspecified asthma severity, unspecified whether persistent Pulmonary emphysema, unspecified emphysema type (HCC) Tinea corporis Dermatophytosis of the body Post-nasal drip Postnasal drip [facility]* Diagnosis Pre-operative examination- Primary Preoperative examination, unspecified Screening for colon cancer Special screening for malignant neoplasms, colon Brain aneurysm Cerebral aneurysm, nonruptured Uncomplicated asthma, unspecified asthma severity, unspecified whether persistent Pulmonary emphysema, unspecified emphysema type (HCC) Tinea corporis Dermatophytosis of the body Post-nasal drip Postnasal drip [facility]* Diagnosis Pre-operative examination- Primary Preoperative examination, unspecified Screening for colon cancer Special screening for malignant neoplasms, colon Brain aneurysm Cerebral aneurysm, nonruptured Uncomplicated asthma, unspecified asthma severity, unspecified whether persistent Pulmonary emphysema, unspecified emphysema type (HCC) Tinea corporis Dermatophytosis of the body Asthma-COPD overlap syndrome (HCC)- Primary Post-nasal drip Postnasal drip [facility]* Diagnosis Pre-operative examination- Primary Preoperative examination, unspecified Screening for colon cancer Special screening for malignant neoplasms, colon Brain aneurysm Cerebral aneurysm, nonruptured Uncomplicated asthma, unspecified asthma severity, unspecified whether persistent Pulmonary emphysema, unspecified emphysema type (HCC) Tinea corporis Dermatophytosis of the body Lung nodules Other nonspecific abnormal finding of lung field [facility]* Diagnosis Pre-operative examination- Primary Preoperative examination, unspecified Screening for colon cancer Special screening for malignant neoplasms, colon Brain aneurysm Cerebral aneurysm, nonruptured Uncomplicated asthma, unspecified asthma severity, unspecified whether persistent Pulmonary emphysema, unspecified emphysema type (HCC) Tinea corporis Dermatophytosis of the body Lung nodules- Primary Other nonspecific abnormal finding of lung field Former cigarette smoker Personal history of tobacco use, presenting hazards to health Stage 4 very severe COPD by GOLD classification (HCC) [facility] Pre-operative examination- Primary Preoperative examination, unspecified Screening for colon cancer Special screening for malignant neoplasms, colon Brain aneurysm Cerebral aneurysm, nonruptured Uncomplicated asthma, unspecified asthma severity, unspecified whether persistent Pulmonary emphysema, unspecified emphysema type (HCC) Tinea corporis Dermatophytosis of the body Lung nodules- Primary Other nonspecific abnormal finding of lung field [facility]* Diagnosis Pre-operative examination- Primary Preoperative examination, unspecified Screening for colon cancer Special screening for malignant neoplasms, colon Brain aneurysm Cerebral aneurysm, nonruptured Uncomplicated asthma, unspecified asthma severity, unspecified whether persistent Pulmonary emphysema, unspecified emphysema type (HCC) Tinea corporis Dermatophytosis of the body Anxiousness- Primary Anxiety state, unspecified Stage 4 very severe COPD by GOLD classification (HCC) Screening for prostate cancer Special screening for malignant neoplasm of prostate Screening for lipid disorders Screening for diabetes mellitus [facility] Diagnosis Pre-operative examination- Primary Preoperative examination, unspecified Screening for colon cancer Special screening for malignant neoplasms, colon Brain aneurysm Cerebral aneurysm, nonruptured Uncomplicated asthma, unspecified asthma severity, unspecified whether persistent Pulmonary emphysema, unspecified emphysema type (HCC) Tinea corporis Dermatophytosis of the body COPD with exacerbation (HCC)- Primary Obstructive chronic bronchitis with exacerbation documented in this encounter [facility] note* Diagnosis Pre-operative examination- Primary Preoperative examination, unspecified Screening for colon cancer Special screening for malignant neoplasms, colon Brain aneurysm Cerebral aneurysm, nonruptured Uncomplicated asthma, unspecified asthma severity, unspecified whether persistent Pulmonary emphysema, unspecified emphysema type (HCC) Tinea corporis Dermatophytosis of the body Pneumonia of both lower lobes due to infectious organism [facility] Diagnosis Pre-operative examination- Primary Preoperative examination, unspecified Screening for colon cancer Special screening for malignant neoplasms, colon Brain aneurysm Cerebral aneurysm, nonruptured Uncomplicated asthma, unspecified asthma severity, unspecified whether persistent Pulmonary emphysema, unspecified emphysema type (HCC) Tinea corporis Dermatophytosis of the body Hospital discharge follow-up- Primary Other follow-up examination Pneumonia of both lower lobes due to infectious organism Stage 4 very severe COPD by GOLD classification (HCC) Dependence on continuous supplemental oxygen Pneumonia of both lower lobes due to infectious organism [facility] Pre-operative examination- Primary Preoperative examination, unspecified Screening for colon cancer Special screening for malignant neoplasms, colon Brain aneurysm Cerebral aneurysm, nonruptured Uncomplicated asthma, unspecified asthma severity, unspecified whether persistent Pulmonary emphysema, unspecified emphysema type (HCC) Tinea corporis Dermatophytosis of the body Elevated glucose- Primary Other abnormal glucose Elevated LFTs Other abnormal blood chemistry Hyperlipidemia, mixed Mixed hyperlipidemia documented [facility]* Diagnosis Pre-operative examination- Primary Preoperative examination, unspecified Screening for colon cancer Special screening for malignant neoplasms, colon Brain aneurysm Cerebral aneurysm, nonruptured Uncomplicated asthma, unspecified asthma severity, unspecified whether persistent Pulmonary emphysema, unspecified emphysema type (HCC) Tinea corporis Dermatophytosis of the body Hospital discharge follow-up- Primary Other follow-up examination COPD with exacerbation (HCC) Obstructive chronic bronchitis with exacerbation Bacterial pneumonia Bacterial pneumonia, unspecified JOSEPH (generalized anxiety disorder) Generalized anxiety disorder Sleeping difficulty Sleep disturbance, unspecified documented [facility]* Diagnosis Pre-operative examination- Primary Preoperative examination, unspecified Screening for colon cancer Special screening for malignant neoplasms, colon Brain aneurysm (HCC) Cerebral aneurysm, nonruptured Uncomplicated asthma, unspecified asthma severity, unspecified whether persistent (HCC) Pulmonary emphysema, unspecified emphysema type (HCC) Tinea corporis Dermatophytosis of the body Stage 4 very severe COPD by GOLD classification (HCC)- Primary Chronic hypoxemic respiratory failure (HCC) Chronic respiratory failure Hyperlipidemia, mixed- Primary Mixed hyperlipidemia COPD with exacerbation (HCC) Obstructive chronic bronchitis with exacerbation Elevated glucose Other abnormal glucose documented in this encounter [facility] note* Diagnosis Pre-operative examination- Primary Preoperative examination, unspecified Screening for colon cancer Special screening for malignant neoplasms, colon Brain aneurysm (HCC) Cerebral aneurysm, nonruptured Uncomplicated asthma, unspecified asthma severity, unspecified whether persistent (HCC) Pulmonary emphysema, unspecified emphysema type (HCC) Tinea corporis Dermatophytosis of the body COPD, severe (HCC)- Primary Chronic airway obstruction, not elsewhere classified Hyperlipidemia, mixed- Primary Mixed hyperlipidemia COPD with exacerbation (HCC) Obstructive chronic bronchitis with exacerbation Elevated glucose Other abnormal glucose [facility]* Diagnosis Pre-operative examination- Primary Preoperative examination, unspecified Screening for colon cancer Special screening for malignant neoplasms, colon Brain aneurysm (HCC) Cerebral aneurysm, nonruptured Uncomplicated asthma, unspecified asthma severity, unspecified whether persistent (HCC) Pulmonary emphysema, unspecified emphysema type (HCC) Tinea corporis Dermatophytosis of the body Sleeping difficulty- Primary Sleep disturbance, unspecified Anxiousness Anxiety state, unspecified Stage 4 very severe COPD by GOLD classification ([facility]) documented in this encounter [facility] note* Diagnosis Pre-operative examination- Primary Preoperative examination, unspecified Screening for colon cancer Special screening for malignant neoplasms, colon Brain aneurysm (HCC) Cerebral aneurysm, nonruptured Uncomplicated asthma, unspecified asthma severity, unspecified whether persistent (HCC) Pulmonary emphysema, unspecified emphysema type (HCC) Tinea corporis Dermatophytosis of the body Lung nodules- Primary Other nonspecific abnormal finding of lung field Former cigarette smoker Personal history of tobacco use, presenting hazards to [facility] Stage 4 very severe COPD by GOLD classification ([facility]) documented in this encounter [facility] note* Diagnosis Pre-operative examination- Primary Preoperative examination, unspecified Screening for colon cancer Special screening for malignant neoplasms, colon Brain aneurysm (HCC) Cerebral aneurysm, nonruptured Uncomplicated asthma, unspecified asthma severity, unspecified whether persistent (HCC) Pulmonary emphysema, unspecified emphysema type (HCC) Tinea corporis Dermatophytosis of the body Lung nodules Other nonspecific abnormal finding of lung field documented in this encounter [facility] note* Diagnosis Pre-operative examination- Primary Preoperative examination, unspecified Screening for colon cancer Special screening for malignant neoplasms, colon Brain aneurysm (HCC) Cerebral aneurysm, nonruptured Uncomplicated asthma, unspecified asthma severity, unspecified whether persistent (HCC) Pulmonary emphysema, unspecified emphysema type (HCC) Tinea corporis Dermatophytosis of the body Sleeping difficulty Sleep disturbance, unspecified documented in this encounter [facility] note* Diagnosis Pre-operative examination- Primary Preoperative examination, unspecified Screening for colon cancer Special screening for malignant neoplasms, colon Brain aneurysm (HCC) Cerebral aneurysm, nonruptured Uncomplicated asthma, unspecified asthma severity, unspecified whether persistent (HCC) Pulmonary emphysema, unspecified emphysema type (HCC) Tinea corporis Dermatophytosis of the body Stage 4 very severe COPD by GOLD classification ([facility]) Asthma-COPD overlap syndrome ([facility]) documented in this encounter [facility] note* Diagnosis Pre-operative examination- Primary Preoperative examination, unspecified Screening for colon cancer Special screening for malignant neoplasms, colon Brain aneurysm (HCC) Cerebral aneurysm, nonruptured Uncomplicated asthma, unspecified asthma severity, unspecified whether persistent (HCC) Pulmonary emphysema, unspecified emphysema type (HCC) Tinea corporis Dermatophytosis of the body Stage 4 very severe COPD by 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) documented in this encounter [facility] for referral (narrative)* Outpatient Procedure (Routine) - Authorized Specialty Diagnoses / Procedures Referred By Contac t Referred To Contact [facility] Diagnoses Stage 4 very severe COPD by GOLD classification (HCC) Procedures OXIMETRY WITH AMBULATION NONINVASIVE EAR/PULSE OXIMETRY MULTIPLE Helen Schultz PA-C [address] [place] [address] [facility] [address] [place] [address] Referral ID Status Reason Start Date Expiration Date Visits Requested Visits Authorized [id number] Authorized Auto-Generat ed Referral 11/14/2022 12/14/2023 1 1 [facility] for referral (narrative)* Outpatient Procedure (Routine) - Authorized Specialty Diagnoses / Procedures Referred By Contac t Referred To Contact [facility] Diagnoses Stage 4 very severe COPD by GOLD classification ([facility]) Chronic hypoxemic respiratory failure (HCC) Procedures OXIMETRY WITH AMBULATION NONINVASIVE EAR/PULSE OXIMETRY MULTIPLE Helen Schultz PA-C [address] [place] [address] [facility] [place] [address] Referral ID Status Reason Start Date Expiration Date Visits Requested Visits Authorized [id number] Authorized Auto-Generat ed Referral 08/29/2023 09/27/2024 1 1 * Transition of Care (Routine) - Ref Not Required Specialty Diagnoses / Procedures Referred By Contac t Referred To Contact Ent - Otolaryngology Diagnoses Chronic sinusitis, unspecified location Procedures CONSULT TO ENT Helen Newman PA-C [address] [place] [address] Stephany Davidshelby Nevarez [address] [place] [address] Referral ID Status Reason Start Date Expiration Date Visits Requested Visits Authorized [id number] Ref Not Required PCP Requested Referral 08/29/2023 08/28/2024 1 1 [facility] Advance Directives Documents on File Type Date Recorded Patient Acquisition Manager Expl anation Advance Directive(s) 12/25/2020 1:09 PM Advance Directive(s) 04/10/2019 10:19 AM Advance Directive(s) 01/05/2016 9:03 PM Documents on File Type Date Recorded Patient Acquisition Manager Expl anation Advance Directive(s) 12/25/2020 1:09 PM Advance Directive(s) 04/10/2019 10:19 AM Advance Directive(s) 01/05/2016 9:03 PM Reason for Referral Specialty Diagnoses / Procedures Referred By Contac t Referred To Contact Diagnoses GHASSAN (obstructive sleep apnea) Procedures CONSULT TO SLEEP MEDICINE - ADULT OFFICE/OUTPATIENT [facility]3] 60-74 MINUTES Helen Newman PA-C [address] [facility] [address] [place] [address] Shaun Hernandez Jr., MD [address] [facility] [address] [place] [address] Referral ID Status Reason Start Date Expiration Date Visits Requested Visits Authorized [id number] Authorized PCP Requested Referral 11/25/2021 02/23/2022 1 1 Specialty Diagnoses / Procedures Referred By Contac t Referred To Contact CT IMAGING Diagnoses Stage 4 very severe COPD by GOLD classification (HCC) SOB (shortness of breath) 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HCC) Procedures CT CHEST WO IVCON DIAGNOSTIC COMPUTED TOMOGRAPHY THORAX W/O Millie Fuller MD [address] [place] [address] Ct Imaging Referral ID Status Reason Start Date Expiration Date Visits Requested Visits Authorized [id number] Authorized Auto-Generat ed Referral 03/04/2022 07/02/2022 1 1 Referral ID Status Reason Start Date Expiration Date V isits Requested Visits Authorized [id number] Closed Auto-Generate d Referral 03/04/2022 07/02/2022 1 1 Specialty Diagnoses / Procedures Referred By Contac t Referred To Contact CT IMAGING Diagnoses Lung nodules Procedures CT CHEST WO IVCON DIAGNOSTIC COMPUTED T[facility]HY [facility]AX [facility] Nathalie, [employer].MALTER 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 Nathalie, [employer] TE[employer]ER.MALTER OPERATOR [address] [place] [address] Ct Imaging [facility] Referral ID Status Reason Start Date Expiration Date V isits Requested Visits Authorized [id number] Closed Auto-Generate d Referral 04/11/2023 05/10/2024 1 1 Referral ID Status Reason Start Date Expiration Date Visits Requested Visits Authorized [id number] New Request Auto-Generat ed Referral 06/26/2025 1 1 Summary Purpose Family History No Family History Records FoundNo Family History Records FoundNo Family History Records FoundNo Family History Records Found Additional Source Comments Source Comments (unrecognize d section and content) In the event this informatio n is protected by the Federal Confidentiality of Alcohol and Drug Abuse Patient Records regulations: The Federal rules restrict any use of the information to criminally investigate or prosecute any alcohol or drug abuse patient.[facility] the event this information is protected by the Federal Confidentiality of Alcohol and Drug Abuse Patient Records regulations: The Federal rules restrict any use of the information to criminally investigate or prosecute any alcohol or drug abuse patient.[facility] the event this information is protected by the Federal Confidentiality of Alcohol and Drug Abuse Patient Records regulations: The Federal rules restrict any use of the information to criminally investigate or prosecute any alcohol or drug abuse patient.[facility] the event this information is protected by the Federal Confidentiality of Alcohol and Drug Abuse Patient Records regulations: The Federal rules restrict any use of the information to criminally investigate or prosecute any alcohol or drug abuse patient.[facility] the event this information is protected by the Federal Confidentiality of Alcohol and Drug Abuse Patient Records regulations: The Federal rules restrict any use of the information to criminally investigate or prosecute any alcohol or drug abuse patient.[facility] the event this information is protected by the Federal Confidentiality of Alcohol and Drug Abuse Patient Records regulations: The Federal rules restrict any use of the information to criminally investigate or prosecute any alcohol or drug abuse patient.[facility] the event this information is protected by the Federal Confidentiality of Alcohol and Drug Abuse Patient Records regulations: The Federal rules restrict any use of the information to criminally investigate or prosecute any alcohol or drug abuse patient.[facility] the event this information is protected by the Federal Confidentiality of Alcohol and Drug Abuse Patient Records regulations: The Federal rules restrict any use of the information to criminally investigate or prosecute any alcohol or drug abuse patient.[facility] the event this information is protected by the Federal Confidentiality of Alcohol and Drug Abuse Patient Records regulations: The Federal rules restrict any use of the information to criminally investigate or prosecute any alcohol or drug abuse patient.[facility] the event this information is protected by the Federal Confidentiality of Alcohol and Drug Abuse Patient Records regulations: The Federal rules restrict any use of the information to criminally investigate or prosecute any alcohol or drug abuse patient.[facility] the event this information is protected by the Federal Confidentiality of Alcohol and Drug Abuse Patient Records regulations: The Federal rules restrict any use of the information to criminally investigate or prosecute any alcohol or drug abuse patient.[facility] the event this information is protected by the Federal Confidentiality of Alcohol and Drug Abuse Patient Records regulations: The Federal rules restrict any use of the information to criminally investigate or prosecute any alcohol or drug abuse patient.[facility] the event this information is protected by the Federal Confidentiality of Alcohol and Drug Abuse Patient Records regulations: The Federal rules restrict any use of the information to criminally investigate or prosecute any alcohol or drug abuse patient.[facility] the event this information is protected by the Federal Confidentiality of Alcohol and Drug Abuse Patient Records regulations: The Federal rules restrict any use of the information to criminally investigate or prosecute any alcohol or drug abuse patient.[facility] the event this information is protected by the Federal Confidentiality of Alcohol and Drug Abuse Patient Records regulations: The Federal rules restrict any use of the information to criminally investigate or prosecute any alcohol or drug abuse patient.[facility] the event this information is protected by the Federal Confidentiality of Alcohol and Drug Abuse Patient Records regulations: The Federal rules restrict any use of the information to criminally investigate or prosecute any alcohol or drug abuse patient.[facility] the event this information is protected by the Federal Confidentiality of Alcohol and Drug Abuse Patient Records regulations: The Federal rules restrict any use of the information to criminally investigate or prosecute any alcohol or drug abuse patient.[facility] the event this information is protected by the Federal Confidentiality of Alcohol and Drug Abuse Patient Records regulations: The Federal rules restrict any use of the information to criminally investigate or prosecute any alcohol or drug abuse patient.[facility] the event this information is protected by the Federal Confidentiality of Alcohol and Drug Abuse Patient Records regulations: The Federal rules restrict any use of the information to criminally investigate or prosecute any alcohol or drug abuse patient.[facility] the event this information is protected by the Federal Confidentiality of Alcohol and Drug Abuse Patient Records regulations: The Federal rules restrict any use of the information to criminally investigate or prosecute any alcohol or drug abuse patient.[facility] the event this information is protected by the Federal Confidentiality of Alcohol and Drug Abuse Patient Records regulations: The Federal rules restrict any use of the information to criminally investigate or prosecute any alcohol or drug abuse patient.[facility] the event this information is protected by the Federal Confidentiality of Alcohol and Drug Abuse Patient Records regulations: The Federal rules restrict any use of the information to criminally investigate or prosecute any alcohol or drug abuse patient.[facility] the event this information is protected by the Federal Confidentiality of Alcohol and Drug Abuse Patient Records regulations: The Federal rules restrict any use of the information to criminally investigate or prosecute any alcohol or drug abuse patient.[facility] the event this information is protected by the Federal Confidentiality of Alcohol and Drug Abuse Patient Records regulations: The Federal rules restrict any use of the information to criminally investigate or prosecute any alcohol or drug abuse patient.[facility]In the event this information is protected by the Federal Confidentiality of Alcohol and Drug Abuse Patient Records regulations: The Federal rules restrict any use of the information to criminally investigate or prosecute any alcohol or drug abuse patient.[facility]In the event this information is protected by the Federal Confidentiality of Alcohol and Drug Abuse Patient Records regulations: The Federal rules restrict any use of the information to criminally investigate or prosecute any alcohol or drug abuse patient.[facility] HospitalIn the event this information is protected by the Federal Confidentiality of Alcohol and Drug Abuse Patient Records regulations: The Federal rules restrict any use of the information to criminally investigate or prosecute any alcohol or drug abuse patient.[facility] HospitalIn the event this information is protected by the Federal Confidentiality of Alcohol and Drug Abuse Patient Records regulations: The Federal rules restrict any use of the information to criminally investigate or prosecute any alcohol or drug abuse patient.[facility] HospitalIn the event this information is protected by the Federal Confidentiality of Alcohol and Drug Abuse Patient Records regulations: The Federal rules restrict any use of the information to criminally investigate or prosecute any alcohol or drug abuse patient.[facility] HospitalIn the event this information is protected by the Federal Confidentiality of Alcohol and Drug Abuse Patient Records regulations: The Federal rules restrict any use of the information to criminally investigate or prosecute any alcohol or drug abuse patient.[facility] HospitalIn the event this information is protected by the Federal Confidentiality of Alcohol and Drug Abuse Patient Records regulations: The Federal rules restrict any use of the information to criminally investigate or prosecute any alcohol or drug abuse patient.[facility] HospitalIn the event this information is protected by the Federal Confidentiality of Alcohol and Drug Abuse Patient Records regulations: The Federal rules restrict any use of the information to criminally investigate or prosecute any alcohol or drug abuse patient.[facility] HospitalIn the event this information is protected by the Federal Confidentiality of Alcohol and Drug Abuse Patient Records regulations: The Federal rules restrict any use of the information to criminally investigate or prosecute any alcohol or drug abuse patient.[facility] HospitalIn the event this information is protected by the Federal Confidentiality of Alcohol and Drug Abuse Patient Records regulations: The Federal rules restrict any use of the information to criminally investigate or prosecute any alcohol or drug abuse patient.[facility] HospitalIn the event this information is protected by the Federal Confidentiality of Alcohol and Drug Abuse Patient Records regulations: The Federal rules restrict any use of the information to criminally investigate or prosecute any alcohol or drug abuse patient.[facility] HospitalIn the event this information is protected by the Federal Confidentiality of Alcohol and Drug Abuse Patient Records regulations: The Federal rules restrict any use of the information to criminally investigate or prosecute any alcohol or drug abuse patient.[facility] HospitalIn the event this information is protected by the Federal Confidentiality of Alcohol and Drug Abuse Patient Records regulations: The Federal rules restrict any use of the information to criminally investigate or prosecute any alcohol or drug abuse patient.[facility] HospitalIn the event this information is protected by the Federal Confidentiality of Alcohol and Drug Abuse Patient Records regulations: The Federal rules restrict any use of the information to criminally investigate or prosecute any alcohol or drug abuse patient.[facility] HospitalIn the event this information is protected by the Federal Confidentiality of Alcohol and Drug Abuse Patient Records regulations: The Federal rules restrict any use of the information to criminally investigate or prosecute any alcohol or drug abuse patient.[facility] HospitalIn the event this information is protected by the Federal Confidentiality of Alcohol and Drug Abuse Patient Records regulations: The Federal rules restrict any use of the information to criminally investigate or prosecute any alcohol or drug abuse patient.[facility] HospitalIn the event this information is protected by the Federal Confidentiality of Alcohol and Drug Abuse Patient Records regulations: The Federal rules restrict any use of the information to criminally investigate or prosecute any alcohol or drug abuse patient.[facility] HospitalIn the event this information is protected by the Federal Confidentiality of Alcohol and Drug Abuse Patient Records regulations: The Federal rules restrict any use of the information to criminally investigate or prosecute any alcohol or drug abuse patient.[facility] HospitalIn the event this information is protected by the Federal Confidentiality of Alcohol and Drug Abuse Patient Records regulations: The Federal rules restrict any use of the information to criminally investigate or prosecute any alcohol or drug abuse patient.[facility] HospitalIn the event this information is protected by the Federal Confidentiality of Alcohol and Drug Abuse Patient Records regulations: The Federal rules restrict any use of the information to criminally investigate or prosecute any alcohol or drug abuse patient.[facility] HospitalIn the event this information is protected by the Federal Confidentiality of Alcohol and Drug Abuse Patient Records regulations: The Federal rules restrict any use of the information to criminally investigate or prosecute any alcohol or drug abuse patient.[facility] HospitalIn the event this information is protected by the Federal Confidentiality of Alcohol and Drug Abuse Patient Records regulations: The Federal rules restrict any use of the information to criminally investigate or prosecute any alcohol or drug abuse patient.[facility] HospitalIn the event this information is protected by the Federal Confidentiality of Alcohol and Drug Abuse Patient Records regulations: The Federal rules restrict any use of the information to criminally investigate or prosecute any alcohol or drug abuse patient.[facility] HospitalIn the event this information is protected by the Federal Confidentiality of Alcohol and Drug Abuse Patient Records regulations: The Federal rules restrict any use of the information to criminally investigate or prosecute any alcohol or drug abuse patient.[facility] HospitalIn the event this information is protected by the Federal Confidentiality of Alcohol and Drug Abuse Patient Records regulations: The Federal rules restrict any use of the information to criminally investigate or prosecute any alcohol or drug abuse patient.[facility] HospitalIn the event this information is protected by the Federal Confidentiality of Alcohol and Drug Abuse Patient Records regulations: The Federal rules restrict any use of the information to criminally investigate or prosecute any alcohol or drug abuse patient.[facility] HospitalIn the event this information is protected by the Federal Confidentiality of Alcohol and Drug Abuse Patient Records regulations: The Federal rules restrict any use of the information to criminally investigate or prosecute any alcohol or drug abuse patient.[facility] HospitalIn the event this information is protected by the Federal Confidentiality of Alcohol and Drug Abuse Patient Records regulations: The Federal rules restrict any use of the information to criminally investigate or prosecute any alcohol or drug abuse patient.[facility] HospitalIn the event this information is protected by the Federal Confidentiality of Alcohol and Drug Abuse Patient Records regulations: The Federal rules restrict any use of the information to criminally investigate or prosecute any alcohol or drug abuse patient.[facility] HospitalIn the event this information is protected by the Federal Confidentiality of Alcohol and Drug Abuse Patient Records regulations: The Federal rules restrict any use of the information to criminally investigate or prosecute any alcohol or drug abuse patient.[facility] HospitalIn the event this information is protected by the Federal Confidentiality of Alcohol and Drug Abuse Patient Records regulations: The Federal rules restrict any use of the information to criminally investigate or prosecute any alcohol or drug abuse patient.[facility] HospitalIn the event this information is protected by the Federal Confidentiality of Alcohol and Drug Abuse Patient Records regulations: The Federal rules restrict any use of the information to criminally investigate or prosecute any alcohol or drug abuse patient.[facility] HospitalIn the event this information is protected by the Federal Confidentiality of Alcohol and Drug Abuse Patient Records regulations: The Federal rules restrict any use of the information to criminally investigate or prosecute any alcohol or drug abuse patient.[facility] HospitalIn the event this information is protected by the Federal Confidentiality of Alcohol and Drug Abuse Patient Records regulations: The Federal rules restrict any use of the information to criminally investigate or prosecute any alcohol or drug abuse patient.[facility] HospitalIn the event this information is protected by the Federal Confidentiality of Alcohol and Drug Abuse Patient Records regulations: The Federal rules restrict any use of the information to criminally investigate or prosecute any alcohol or drug abuse patient.[facility] HospitalIn the event this information is protected by the Federal Confidentiality of Alcohol and Drug Abuse Patient Records regulations: The Federal rules restrict any use of the information to criminally investigate or prosecute any alcohol or drug abuse patient.[facility] HospitalIn the event this information is protected by the Federal Confidentiality of Alcohol and Drug Abuse Patient Records regulations: The Federal rules restrict any use of the information to criminally investigate or prosecute any alcohol or drug abuse patient.[facility] HospitalIn the event this information is protected by the Federal Confidentiality of Alcohol and Drug Abuse Patient Records regulations: The Federal rules restrict any use of the information to criminally investigate or prosecute any alcohol or drug abuse patient.[facility] HospitalIn the event this information is protected by the Federal Confidentiality of Alcohol and Drug Abuse Patient Records regulations: The Federal rules restrict any use of the information to criminally investigate or prosecute any alcohol or drug abuse patient.[facility] HospitalIn the event this information is protected by the Federal Confidentiality of Alcohol and Drug Abuse Patient Records regulations: The Federal rules restrict any use of the information to criminally investigate or prosecute any alcohol or drug abuse patient.[facility] HospitalIn the event this information is protected by the Federal Confidentiality of Alcohol and Drug Abuse Patient Records regulations: The Federal rules restrict any use of the information to criminally investigate or prosecute any alcohol or drug abuse patient.[facility] HospitalIn the event this information is protected by the Federal Confidentiality of Alcohol and Drug Abuse Patient Records regulations: The Federal rules restrict any use of the information to criminally investigate or prosecute any alcohol or drug abuse patient.[facility] HospitalIn the event this information is protected by the Federal Confidentiality of Alcohol and Drug Abuse Patient Records regulations: The Federal rules restrict any use of the information to criminally investigate or prosecute any alcohol or drug abuse patient.[facility] HospitalIn the event this information is protected by the Federal Confidentiality of Alcohol and Drug Abuse Patient Records regulations: The Federal rules restrict any use of the information to criminally investigate or prosecute any alcohol or drug abuse patient.[facility] HospitalIn the event this information is protected by the Federal Confidentiality of Alcohol and Drug Abuse Patient Records regulations: The Federal rules restrict any use of the information to criminally investigate or prosecute any alcohol or drug abuse patient.[facility] HospitalIn the event this information is protected by the Federal Confidentiality of Alcohol and Drug Abuse Patient Records regulations: The Federal rules restrict any use of the information to criminally investigate or prosecute any alcohol or drug abuse patient.[facility] HospitalIn the event this information is protected by the Federal Confidentiality of Alcohol and Drug Abuse Patient Records regulations: The Federal rules restrict any use of the information to criminally investigate or prosecute any alcohol or drug abuse patient.[facility] HospitalIn the event this information is protected by the Federal Confidentiality of Alcohol and Drug Abuse Patient Records regulations: The Federal rules restrict any use of the information to criminally investigate or prosecute any alcohol or drug abuse patient.[facility] HospitalIn the event this information is protected by the Federal Confidentiality of Alcohol and Drug Abuse Patient Records regulations: The Federal rules restrict any use of the information to criminally investigate or prosecute any alcohol or drug abuse patient.[facility] HospitalIn the event this information is protected by the Federal Confidentiality of Alcohol and Drug Abuse Patient Records regulations: The Federal rules restrict any use of the information to criminally investigate or prosecute any alcohol or drug abuse patient.[facility] HospitalIn the event this information is protected by the Federal Confidentiality of Alcohol and Drug Abuse Patient Records regulations: The Federal rules restrict any use of the information to criminally investigate or prosecute any alcohol or drug abuse patient.[facility] HospitalIn the event this information is protected by the Federal Confidentiality of Alcohol and Drug Abuse Patient Records regulations: The Federal rules restrict any use of the information to criminally investigate or prosecute any alcohol or drug abuse patient.[facility] HospitalIn the event this information is protected by the Federal Confidentiality of Alcohol and Drug Abuse Patient Records regulations: The Federal rules restrict any use of the information to criminally investigate or prosecute any alcohol or drug abuse patient.[facility] HospitalIn the event this information is protected by the Federal Confidentiality of Alcohol and Drug Abuse Patient Records regulations: The Federal rules restrict any use of the information to criminally investigate or prosecute any alcohol or drug abuse patient.[facility] HospitalIn the event this information is protected by the Federal Confidentiality of Alcohol and Drug Abuse Patient Records regulations: The Federal rules restrict any use of the information to criminally investigate or prosecute any alcohol or drug abuse patient.[facility] HospitalIn the event this information is protected by the Federal Confidentiality of Alcohol and Drug Abuse Patient Records regulations: The Federal rules restrict any use of the information to criminally investigate or prosecute any alcohol or drug abuse patient.[facility] HospitalIn the event this information is protected by the Federal Confidentiality of Alcohol and Drug Abuse Patient Records regulations: The Federal rules restrict any use of the information to criminally investigate or prosecute any alcohol or drug abuse patient.[facility] HospitalIn the event this information is protected by the Federal Confidentiality of Alcohol and Drug Abuse Patient Records regulations: The Federal rules restrict any use of the information to criminally investigate or prosecute any alcohol or drug abuse patient.[facility] HospitalIn the event this information is protected by the Federal Confidentiality of Alcohol and Drug Abuse Patient Records regulations: The Federal rules restrict any use of the information to criminally investigate or prosecute any alcohol or drug abuse patient.[facility] HospitalIn the event this information is protected by the Federal Confidentiality of Alcohol and Drug Abuse Patient Records regulations: The Federal rules restrict any use of the information to criminally investigate or prosecute any alcohol or drug abuse patient.[facility] HospitalIn the event this information is protected by the Federal Confidentiality of Alcohol and Drug Abuse Patient Records regulations: The Federal rules restrict any use of the information to criminally investigate or prosecute any alcohol or drug abuse patient.[facility] HospitalIn the event this information is protected by the Federal Confidentiality of Alcohol and Drug Abuse Patient Records regulations: The Federal rules restrict any use of the information to criminally investigate or prosecute any alcohol or drug abuse patient.[facility] HospitalIn the event this information is protected by the Federal Confidentiality of Alcohol and Drug Abuse Patient Records regulations: The Federal rules restrict any use of the information to criminally investigate or prosecute any alcohol or drug abuse patient.[facility] HospitalIn the event this information is protected by the Federal Confidentiality of Alcohol and Drug Abuse Patient Records regulations: The Federal rules restrict any use of the information to criminally investigate or prosecute any alcohol or drug abuse patient.[facility] HospitalIn the event this information is protected by the Federal Confidentiality of Alcohol and Drug Abuse Patient Records regulations: The Federal rules restrict any use of the information to criminally investigate or prosecute any alcohol or drug abuse patient.[facility] HospitalIn the event this information is protected by the Federal Confidentiality of Alcohol and Drug Abuse Patient Records regulations: The Federal rules restrict any use of the information to criminally investigate or prosecute any alcohol or drug abuse patient.[facility] HospitalIn the event this information is protected by the Federal Confidentiality of Alcohol and Drug Abuse Patient Records regulations: The Federal rules restrict any use of the information to criminally investigate or prosecute any alcohol or drug abuse patient.[facility] HospitalIn the event this information is protected by the Federal Confidentiality of Alcohol and Drug Abuse Patient Records regulations: The Federal rules restrict any use of the information to criminally investigate or prosecute any alcohol or drug abuse patient.[facility] HospitalIn the event this information is protected by the Federal Confidentiality of Alcohol and Drug Abuse Patient Records regulations: The Federal rules restrict any use of the information to criminally investigate or prosecute any alcohol or drug abuse patient.[facility] HospitalIn the event this information is protected by the Federal Confidentiality of Alcohol and Drug Abuse Patient Records regulations: The Federal rules restrict any use of the information to criminally investigate or prosecute any alcohol or drug abuse patient.[facility] HospitalIn the event this information is protected by the Federal Confidentiality of Alcohol and Drug Abuse Patient Records regulations: The Federal rules restrict any use of the information to criminally investigate or prosecute any alcohol or drug abuse patient.[facility] HospitalIn the event this information is protected by the Federal Confidentiality of Alcohol and Drug Abuse Patient Records regulations: The Federal rules restrict any use of the information to criminally investigate or prosecute any alcohol or drug abuse patient.[facility] HospitalIn the event this information is protected by the Federal Confidentiality of Alcohol and Drug Abuse Patient Records regulations: The Federal rules restrict any use of the information to criminally investigate or prosecute any alcohol or drug abuse patient.[facility] Reason for Visit (unrecogniz ed section and content) Reason Comments Refill Request Reason Comments New Patient Sleep Apnea Specialty Diagnoses / Procedures Referred By Contac t Referred To Contact Diagnoses GHASSAN (obstructive sleep apnea) Procedures CONSULT TO SLEEP MEDICINE - ADULT OFFICE/OUTPATIENT NEW HIGH MDM 60-74 MINUTES Helen Newman PA-C [address] [address] Shaun Hernandez Jr., MD [address] [address] Referral ID Status Reason Start Date Expiration Date V isits Requested Visits Authorized [id number] Closed PCP Requested Referral 11/25/2021 02/23/2022 1 1 Reason Comments Electronic Communication Reason Comments Sleep Apnea Reason Comments Spirometry Specialty Diagnoses / Procedures Referred By Contac t Referred To Contact [facility] Diagnoses Stage 3 severe COPD by GOLD classification ([facility]) Procedures LUNG DIFFUSION CAPACITY (DLCO) DIFFUSING CAPACITY Helen Newman PA-C [address] [place] [address] [place] [facility] [place] [id number] Referral ID Status Reason Start Date Expiration Date V isits Requested Visits Authorized [id number] Closed Auto-Generate d Referral 09/03/2021 10/03/2022 1 1 Specialty Diagnoses / Procedures Referred By Contac t Referred To Contact [facility] Diagnoses Stage 3 severe COPD by GOLD classification ([facility]) Procedures SPIROMETRY BASELINE ONLY SPMTRY W/VC EXPIRATORY NATTY W/WO MXML VOL VNTJ Helen Newman PA-C [address] [address] Respiratory [place] [address] [place] [id number] Referral ID Status Reason Start Date Expiration Date V isits Requested Visits Authorized [id number] Closed Auto-Generate d Referral 09/03/2021 10/03/2022 1 1 Reason Comments Established Patient COPD Reason Onset Date Comments Refill Request 03/14/[address] Specialty Diagnoses / Procedures Referred By Contac t Referred To Contact CT IMAGING Diagnoses Stage 4 very severe COPD by GOLD classification ([facility]) SOB (shortness of breath) 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[facility]) Procedures CT CHEST WO IVCON DIAGNOSTIC COMPUTED TOMOGRAPHY THORAX W/O CNTABRILT Millie Sánchez MD [address] [facility] [place] [address] Ct Imaging Referral ID Status Reason Start Date Expiration Date V isits Requested Visits Authorized [id number] Closed Auto-Generate d Referral 03/04/2022 07/02/2022 1 1 Reason Comments Cough Cough, congestion, y ellow/green drainage-COPD exacerbation x 1 week Reason Comments Discussion For Lift Chair Reason Comments Orders Reason Comments COPD Reason Comments Bag Washer - Other Short Term Disa bility Reason Comments Patient Update Reason Comments Results Specialty Diagnoses / Procedures Referred By Contac t Referred To Contact CT IMAGING Diagnoses Lung nodules Pulmonary emphysema, unspecified emphysema type ([facility]) Procedures CT CHEST WO IVCON DIAGNOSTIC COMPUTED TOMOGRAPHY THORAX W/O CNTRST Nathalie Mojica APRN.MALTER OPERATOR [id number] [facility] [place] [address] Referral ID Status Reason Start Date Expiration Date V isits Requested Visits Authorized [id number] Closed Auto-Generate d Referral 04/11/2023 05/10/2024 1 1 Reason Comments Established Patient 3 month follow up [place] PD Specialty Diagnoses / Procedures Referred By Contac t Referred To Contact [facility] Diagnoses Stage 4 very severe COPD by GOLD classification ([facility]) Procedures SPIROMETRY BASELINE ONLY SPMTRY W/VC EXPIRATORY NATTY W/WO MXML VOL VNTJ Helen Newman PA-C [address] [facility] [place] [address] Respiratory [place] [address] [place] [address] Referral ID Status Reason Start Date Expiration Date V isits Requested Visits Authorized [id number] Closed Auto-Generate d Referral 07/12/2023 08/10/2024 1 1 Specialty Diagnoses / Procedures Referred By Contac t Referred To Contact [facility] Diagnoses Stage 4 very severe COPD by GOLD classification ([facility]) Procedures LUNG DIFFUSION CAPACITY (DLCO) DIFFUSING CAPACITY Helen Newman PA-C [address] [place] [address] [address] Referral ID Status Reason Start Date Expiration Date V isits Requested Visits Authorized [id number] Closed Auto-Generate d Referral 07/12/2023 08/10/2024 1 1 Specialty Diagnoses / Procedures Referred By Contac t Referred To Contact [facility] [place] Diagnoses Stage 4 very severe COPD by GOLD classification ([facility]) Procedures LUNG VOLUMES Helen Newman PA-C [address] [place] [address] [place] [address] Referral ID Status Reason Start Date Expiration Date V isits Requested Visits Authorized [id number] Closed Auto-Generate d Referral 08/03/2023 07/02/2024 1 1 Reason Comments Established Patient COPD Established Patient Follow-Up Specialty Diagnoses / Procedures Referred By Contac t Referred To Contact [facility] [place] Diagnoses Stage 4 very severe COPD by GOLD classification ([facility]) Chronic hypoxemic respiratory failure (HCC) Procedures OXIMETRY WITH AMBULATION NONINVASIVE EAR/PULSE [employer] Helen Newman PA-C [address] [place] [address] [address] Referral ID Status Reason Start Date Expiration Date V isits Requested Visits Authorized [id number] Closed Auto-Generate d Referral 08/29/2023 09/27/2024 1 1 Reason Comments Established Patient 6 month follow up [place] PD Reason Onset Date Comments Refill Request 04/10/2024 Reason Comments Med Change Request Reason Comments Radiology CT Specialty Diagnoses / Procedures Referred By Contac t Referred To Contact CT IMAGING Diagnoses Lung nodules Procedures CT CHEST WO IVCON DIAGNOSTIC COMPUTED TOMOGRAPHY THORAX W/O CNTRST Nathalie Mojica, HIGH SCHOOL INDUSTRIAL ARTS TEACHER.MALTER OPERATOR [address] [place] [address] Ct Imaging [facility]95 Referral ID Status Reason Start Date Expiration Date V isits Requested Visits Authorized [id number] Closed Auto-Generate d Referral 05/01/2023 05/30/2024 1 1 Reason Comments Established Patient LCS Reason Onset Date Comments Refill Request 06/17/2024 Medication Problem 06/17/2024 Patient has b een out of Buspirone since last week Reason Comments Follow Up Reason Onset Date Comments Transition Of Care 07/23/2024 Reason Comments Hospital F/U 14 day TCM Reason Comments Appointment Pulmonary Rehab Eval Reason Comments Difficulty Breathing Reason Comments Established Patient 6 month follow up Specialty Diagnoses / Procedures Referred By Trever t Referred To Contact CT IMAGING Diagnoses Lung nodules Procedures CT CHEST WO IVCON DIAGNOSTIC COMPUTED TOMOGRAPHY THORAX W/O CNTRST Nathalie Mojica, HIGH SCHOOL INDUSTRIAL ARTS TEACHER.MALTER OPERATOR [address] [place] [address] Phone: tel: fax: [facility] [place] [phone] Referral ID Status Reason Start Date Expiration Date V isits Requested Visits Authorized [id number] Closed Auto-Generate d Referral 05/27/2024 06/26/2025 1 1 Reason Onset Date Comments Refill Request 11/27/2024 Reason Onset Date Comments Refill Request 01/15/2025 Care Teams (unrecognized sec tion and content) Residential Mortgage Manager Relationship Specialty Start Date End Date Alberto Avelar MD [address] [place] [address] PCP - General Family Practice 11/11/10 Residential Mortgage Manager Relationship Specialty Start Date End Date Alberto Avelar MD [address] [place] [address] PCP - General Family Practice 11/11/10 Residential Mortgage Manager Relationship Specialty Start Date End Date Alberto Avelar MD [address] [place] [address] PCP - General Family Practice 11/11/10 Residential Mortgage Manager Relationship Specialty Start Date End Date Alberto Avelar MD [address] [place], [place] [address]141 PCP - General Family Practice 11/11/10 Residential Mortgage Manager Relationship Specialty Start Date End Date Alberto Avelar MD [address] [place] [address] PCP - General Family Practice 11/11/10 Residential Mortgage Manager Relationship Specialty Start Date End Date Alberto Avelar MD [address] [place] [address] PCP - General Family Practice 11/11/10 Residential Mortgage Manager Relationship Specialty Start Date End Date Alberto Avelar MD [address] [place] [address] PCP - General Family Practice 11/11/10 Residential Mortgage Manager Relationship Specialty Start Date End Date Alberto Avelar MD [facility] [place] [address] PCP - General Family Practice 11/11/10 Residential Mortgage Manager Relationship Specialty Start Date End Date Alberto Avelar MD [address] [place] [address] PCP - General Family Practice 11/11/10 Residential Mortgage Manager Relationship Specialty Start Date End Date Alberto Avelar MD [address] [place] [address] PCP - General Family Practice 11/11/10 Residential Mortgage Manager Relationship Specialty Start Date End Date Alberto Avelar MD [address] [place] [address] PCP - General Family Practice 11/11/10 Residential Mortgage Manager Relationship Specialty Start Date End Date Alberto Avelar MD [address] [place] [address] PCP - General Family Practice 11/11/10 Residential Mortgage Manager Relationship Specialty Start Date End Date Alberto Avelar MD [address] [place] [address] PCP - General Family Medicine 11/11/10 Residential Mortgage Manager Relationship Specialty Start Date End Date Alberto Avelar MD [address] [place] [address] PCP - General Family Medicine 11/11/10 Residential Mortgage Manager Relationship Specialty Start Date End Date Alberto Avelar MD [address] [place] [address] PCP - General Family Medicine 11/11/10 Residential Mortgage Manager Relationship Specialty Start Date End Date Alberto Avelar MD [address] [place] [address] PCP - General Family Medicine 11/11/10 Residential Mortgage Manager Relationship Specialty Start Date End Date Alberto Avelar MD [facility] [place] [address] PCP - General Family Medicine 11/11/10 Residential Mortgage Manager Relationship Specialty Start Date End Date Alberto Avelar MD [address] [place] [address] PCP - General Family Medicine 11/11/10 Residential Mortgage Manager Relationship Specialty Start Date End Date Alberto Avelar MD [address] [place] [address] PCP - General Family Medicine 11/11/10 Residential Mortgage Manager Relationship Specialty Start Date End Date Alberto Avelar MD [address] [place] [address] PCP - General Family Medicine 11/11/10 Residential Mortgage Manager Relationship Specialty Start Date End Date Alberto Avelar MD [address] [place] [address] PCP - General Family Medicine 11/11/10 Residential Mortgage Manager Relationship Specialty Start Date End Date Alberto Avelar MD [address] [place] [address] PCP - General Family Medicine 11/11/10 Residential Mortgage Manager Relationship Specialty Start Date End Date Alberto Avelar MD [address] [place] [address] PCP - General Family Medicine 11/11/10 Residential Mortgage Manager Relationship Specialty Start Date End Date Alberto Avelar MD [address] [place] [address] PCP - General Family Medicine 11/11/10 Residential Mortgage Manager Relationship Specialty Start Date End Date Alberto Avelar MD [address] [place] [address] PCP - General Family Medicine 11/11/10 Residential Mortgage Manager Relationship Specialty Start Date End Date Alberto Avelar MD [address] [place] [address] PCP - General Family Medicine 11/11/10 Residential Mortgage Manager Relationship Specialty Start Date End Date Alberto Avelar MD [address] [place] [address] PCP - General Family Medicine 11/11/10 Residential Mortgage Manager Relationship Specialty Start Date End Date Alberto Avelar MD [address] [place] [address] PCP - General Family Medicine 11/11/10 Residential Mortgage Manager Relationship Specialty Start Date End Date Alberto Avelar MD [address] [place] [address] PCP - General Family Medicine 11/11/10 Helen Newman PA-C [address] [place] [facility] [place] [address] Pulmonary and Critical Care Medicine 04/13/23 Residential Mortgage Manager Relationship Specialty Start Date End Date Alberto Avelar MD [address] [facility] [address] PCP - General Family Medicine 11/11/10 Helen Newman PA-C [address] [place] [facility] [place] [address] Pulmonary and Critical Care Medicine 04/13/23 Residential Mortgage Manager Relationship Specialty Start Date End Date Alberto Avelar MD [address] [facility] [address] PCP - General Family Medicine 11/11/10 Helen Newman PA-C [address] [place] [address] Pulmonary and Critical Care Medicine 04/13/23 Residential Mortgage Manager Relationship Specialty Start Date End Date Alberto Avelar MD [address] [facility] [address] PCP - General Family Medicine 11/11/10 Helen Newman PA-C [address] [place] [address] Pulmonary and Critical Care Medicine 04/13/23 Residential Mortgage Manager Relationship Specialty Start Date End Date Alberto Avelar MD [address] [facility] [address] PCP - General Family Medicine 11/11/10 Helen Newman PA-C [address] [facility] [place] [address] Pulmonary and Critical Care Medicine 04/13/23 Residential Mortgage Manager Relationship Specialty Start Date End Date Alberto Avelar MD [address] [facility] [address] PCP - General Family Medicine 11/11/10 Helen Newman, PA-C [address] [facility] [address] Pulmonary and Critical Care Medicine 04/13/23 Residential Mortgage Manager Relationship Specialty Start Date End Date Alberto Avelar MD [address] [facility] [address] PCP - General Family Medicine 11/11/10 Helen Newman PA-Sandra [address] [facility] [place] [address] Pulmonary and Critical Care Medicine 04/13/23 Residential Mortgage Manager Relationship Specialty Start Date End Date Alberto Avelar MD [address] [facility] [address] PCP - General Family Medicine 11/11/10 Helen Newman, PA-C [address] [facility] [place] [address] Pulmonary and Critical Care Medicine 04/13/23 Residential Mortgage Manager Relationship Specialty Start Date End Date Alberto Avelar MD [address] [facility] [address] PCP - General Family Medicine 11/11/10 Helen Newman PA-C [address] [place] [address] Pulmonary and Critical Care Medicine 04/13/23 Residential Mortgage Manager Relationship Specialty Start Date End Date Alberto Avelar MD [address] [place] [address] PCP - General Family Medicine 11/11/10 Helen Newman, PA-C [address] [place] [address] Pulmonary and Critical Care Medicine 04/13/23 Residential Mortgage Manager Relationship Specialty Start Date End Date Alberto Avelar MD [address] [facility] [address] PCP - General Family Medicine 11/11/10 Helen Newman, PA-C [address] [place] [address] Pulmonary and Critical Care Medicine 04/13/23 Residential Mortgage Manager Relationship Specialty Start Date End Date Alberto Avelar MD [address] [place] [address] PCP - General Family Medicine 11/11/10 Helen Newman, PA-C [address] [place] [address] Pulmonary and Critical Care Medicine 04/13/23 Residential Mortgage Manager Relationship Specialty Start Date End Date Alberto Avelar MD [address] [facility] [address] PCP - General Family Medicine 11/11/10 Helen Newman, PA-C [address] [facility] [place] [address] Pulmonary and Critical Care Medicine 04/13/23 Residential Mortgage Manager Relationship Specialty Start Date End Date Alberto Avelar MD [address] [facility] [address] PCP - General Family Medicine 11/11/10 Helen Newman, PA-C [address] [facility] [place] [address] Pulmonary and Critical Care Medicine 04/13/23 Residential Mortgage Manager Relationship Specialty Start Date End Date Alberto Avelar MD [address] [facility] [address] PCP - General Family Medicine 11/11/10 Helen Newman, PA-C [address] [facility] [place] [address] Pulmonary and Critical Care Medicine 04/13/23 Residential Mortgage Manager Relationship Specialty Start Date End Date Alberto Avelar MD [address] [facility] [address] PCP - General Family Medicine 11/11/10 Helen Newman, PA-C [address] [facility] [place] [address] Pulmonary and Critical Care Medicine 04/13/23 Residential Mortgage Manager Relationship Specialty Start Date End Date Alberto Avelar MD [address] [place] [address] PCP - General Family Medicine 11/11/10 Helen Newman, PA-C [address] [place] [address] Pulmonary and Critical Care Medicine 04/13/23 Shalini Jacobo APRN.MALTER OPERATOR [address] [place] [address] [facility] 06/09/24 Residential Mortgage Manager Relationship Specialty Start Date End Date Alberto Avelar MD [address] [place] [address] PCP - General [facility] Medicine 11/11/10 Helen Newman, CHRISTIANE-C [address] [place] [address] Pulmonary and Critical Care Medicine 04/13/23 Shalini Jacobo APRN.MALTER OPERATOR [address] [place] [address] [facility] 06/09/24 Residential Mortgage Manager Relationship Specialty Start Date End Date Alberto Avelar MD [address] [place] [address] PCP - General [facility] Medicine 11/11/10 Helen Newman PA-Sandra [address] [place] [address] Pulmonary and Critical Care Medicine 04/13/23 Shalini Jacobo APRN.MALTER OPERATOR [address] [place] [address] [facility] 06/09/24 Residential Mortgage Manager Relationship Specialty Start Date End Date Alberto Avelar MD [address] [place] [address] PCP - General Family Medicine 11/11/10 Helen Newman, PA-C [address] [place] [address] Pulmonary and Critical Care Medicine 04/13/23 Shalini Jacobo APRN.MALTER OPERATOR [address] [place] [address] [facility] 06/09/24 Gurmeet Tao APRN.MALTER OPERATOR [address] [place] [address] [facility] 06/18/24 Residential Mortgage Manager Relationship Specialty Start Date End Date Alebrto Avelar MD [address] [place] [address] PCP - General Family Medicine 11/11/10 Helen Newman, PA-C [address] [place] [address] Pulmonary and Critical Care Medicine 04/13/23 Shalini Jacobo APRN.MALTER OPERATOR [address] [place] [address] [facility] 06/09/24 Gurmeet Tao APRN.MALTER OPERATOR [address] [place] [address] [facility] 06/18/24 Residential Mortgage Manager Relationship Specialty Start Date End Date Alberto Avelar MD [address] [facility] [address] PCP - General Family Medicine 11/11/10 Helen Newman, PA-C [address] [facility] [place] [address] Pulmonary and Critical Care Medicine 04/13/23 Shalini Jacobo APRN.MALTER OPERATOR [address] [facility] [place] [address] Automotive Mechanical Engineer Family Medicine 06/09/24 Gurmeet Tao APRN.MALTER OPERATOR [address] [facility] [address] Automotive Mechanical Engineer [facility] 06/18/24 Residential Mortgage Manager Relationship Specialty Start Date End Date Alberto Avelar MD [address] [facility] [address] PCP - General Family Medicine 11/11/10 Helen Newman, PA-Sandra [address] [facility] [place] [address] Pulmonary and Critical Care Medicine 04/13/23 Shalini Jacobo APRN.MALTER OPERATOR [address] [facility] [address] Automotive Mechanical Engineer Family Medicine 06/09/24 Gurmeet Tao APRN.MALTER OPERATOR [address] [facility] [place] [address] Automotive Mechanical Engineer Family Medicine 06/18/24 Residential Mortgage Manager Relationship Specialty Start Date End Date Alberto Avelar MD [address] [place] [address] PCP - General Family Medicine 11/11/10 Helen Newman PA-C [address] [place] [address] Pulmonary and Critical Care Medicine 04/13/23 Shalini Jacobo APRN.MALTER OPERATOR [address] [facility] [address] [facility] 06/09/24 Gurmeet Tao APRN.MALTER OPERATOR [address] [facility] [address] [facility] 06/18/24 Residential Mortgage Manager Relationship Specialty Start Date End Date Alberto Avelar MD [address] [place] [address] PCP - General Family Medicine 11/11/10 Helen Newman PA-C [address] [place] [address] Pulmonary and Critical Care Medicine 04/13/23 Shalini Jacobo APRN.MALTER OPERATOR [address] [facility] [address] [facility] 06/09/24 Gurmeet Tao APRN.MALTER OPERATOR [address] [facility] [address] [facility] 06/18/24 Residential Mortgage Manager Relationship Specialty Start Date End Date Alberto Avelar MD [address] [place] [address] PCP - General Family Medicine 11/11/10 Helen Newman PA-C [address] [place] [address] Pulmonary and Critical Care Medicine 04/13/23 Shalini Jacobo APRN.MALTER OPERATOR [address] [place] [address] [facility] 06/09/24 Gurmeet Tao APRN.MALTER OPERATOR [address] [place] [address] [facility] 06/18/24 Residential Mortgage Manager Relationship Specialty Start Date End Date Alberto Avelar MD [address] [place] [address] PCP - General Family Medicine 11/11/10 Helen Newman PA-C [address] [place] [address] Pulmonary and Critical Care Medicine 04/13/23 Shalini Jacobo APRN.MALTER OPERATOR [address] [place] [address] [facility] 06/09/24 Gurmeet Tao APRN.MALTER OPERATOR [address] [place] [address] [facility] 06/18/24 Residential Mortgage Manager Relationship Specialty Start Date End Date Alberto Avelar MD [address] [place] [address] PCP - General Family Medicine 11/11/10 Helen Newman PA-C [address] [place] [address] Pulmonary and Critical Care Medicine 04/13/23 Shalini Jacobo APRN.MALTER OPERATOR [address] [place] [address] [facility] 06/09/24 Gurmeet Tao APRN.MALTER OPERATOR [address] [facility] [place] [address] [facility] 06/18/24 Residential Mortgage Manager Relationship Specialty Start Date End Date Alberto Avelar MD [address] [place] [address] PCP - General Family Medicine 11/11/10 Helen Newman PA-C [address] [place] [address] Pulmonary and Critical Care Medicine 04/13/23 Shalini Jacobo APRN.MALTER OPERATOR [address] [place] [address] [facility] 06/09/24 Gurmeet Tao APRN.MALTER OPERATOR [address] [place] [address] [facility] 06/18/24 Residential Mortgage Manager Relationship Specialty Start Date End Date Alberto Avelar MD [address] [place] [address] PCP - General Family Medicine 11/11/10 Helen Newman PA-C [address] [place] [address] Pulmonary and Critical Care Medicine 04/13/23 Shalini Jacobo APRN.MALTER OPERATOR [address] [facility] [place] [address] Automotive Mechanical Engineer [facility] 06/09/24 Gurmeet Tao APRN.MALTER OPERATOR [address] [facility] [place] [address] [facility] 06/18/24 Residential Mortgage Manager Relationship Specialty Start Date End Date Alberto Avelar MD [address] [facility] [place] [address] PCP - General Family Medicine 11/11/10 Helen Newman PA-Sandra [address] [place] [address] Pulmonary and Critical Care Medicine 04/13/23 Shalini Jacobo APRN.MALTER OPERATOR [address] [place] [address] [facility] 06/09/24 Gurmeet Tao APRN.MALTER OPERATOR [address] [facility] [place] [address] [facility] 06/18/24 Residential Mortgage Manager Relationship Specialty Start Date End Date Alberto Avelar MD [address] [place] [address] PCP - General Family Medicine 11/11/10 Helen Newman PA-C [address] [place] [address] Pulmonary and Critical Care Medicine 04/13/23 Shalini Jacobo APRN.MALTER OPERATOR [address] [place] [address] [facility] 06/09/24 Gurmeet Tao APRN.MALTER OPERATOR [address] [place] [address] [facility] 06/18/24 Residential Mortgage Manager Relationship Specialty Start Date End Date Alberto Avelar MD [address] [place] [address] PCP - General Family Medicine 11/11/10 Helen Newman PA-C [address] [place] [address] Pulmonary and Critical Care Medicine 04/13/23 Shalini Jacobo APRN.MALTER OPERATOR [address] [place] [address] [facility] 06/09/24 Gurmeet Tao APRN.MALTER OPERATOR [address] [place] [address] [facility] 06/18/24 Residential Mortgage Manager Relationship Specialty Start Date End Date Alberto Avelar MD [address] [place] [address] PCP - General Family Medicine 11/11/10 Helen Newman PA-C [address] [place] [address] Pulmonary and Critical Care Medicine 04/13/23 Shalini Jacobo APRN.MALTER OPERATOR [address] [place] [address] [facility] 06/09/24 Gurmeet Tao APRN.MALTER OPERATOR [address] [place] [address] [facility] 06/18/24 Residential Mortgage Manager Relationship Specialty Start Date End Date Alberto Avelar MD [address] [place] [address] PCP - General Family Medicine 11/11/10 Helen Newman PA-C [address] [place] [address] Pulmonary and Critical Care Medicine 04/13/23 Shalini Jacobo APRN.MALTER OPERATOR [address] [place] [address] [facility] 06/09/24 Gurmeet Tao APRN.MALTER OPERATOR [address] [place] [address] [facility] 06/18/24 Residential Mortgage Manager Relationship Specialty Start Date End Date Alberto Avelar MD [address] [place] [address] PCP - General Family Medicine 11/11/10 Helen Newman PA-C [address] [place] [address] Pulmonary and Critical Care Medicine 04/13/23 Gurmeet Tao APRN.MALTER OPERATOR [address] [place] [address] Automotive Mechanical Engineer [facility] 06/18/24 Residential Mortgage Manager Relationship Specialty Start Date End Date Alberto Avelar MD [address] [place] [address] PCP - General Family Medicine 11/11/10 Helen Newman PA-C [address] [place] [address] Pulmonary and Critical Care Medicine 04/13/23 Gurmeet Tao APRN.MALTER OPERATOR [address] [place] [address] [facility] 06/18/24 Residential Mortgage Manager Relationship Specialty Start Date End Date Alberto Avelar MD [address] [place] [address] PCP - General Family Medicine 11/11/10 Helen Newman, OUMAR [address] [place] [address] Pulmonary and Critical Care Medicine 04/13/23 Gurmeet Tao APRN.MALTER OPERATOR [address] [place] [address] Autom[facility] Mechanical [facility] 06/18/24 Residential Mortgage Manager Relationship Specialty Start Date End Date Alberto Avelar MD [address] [place] [address] PCP - General Family Medicine 11/11/10 Helen Newman PA-C [address] [place] [address] Pulmonary and Critical Care Medicine 04/13/23 Gurmeet Tao APRN.MALTER OPERATOR [address] [place] [address] [facility] 06/18/24 Residential Mortgage Manager Relationship Specialty Start Date End Date Alberto Avelar MD [address] [place] [address] PCP - General Family Medicine 11/11/10 Helen Newman PA-C [address] [address] Pulmonary and Critical Care Medicine 04/13/23 Gurmeet Tao APRN.MALTER OPERATOR [address] [place] [address] [facility] 06/18/24 Residential Mortgage Manager Relationship Specialty Start Date End Date Alberto Avelar MD [address] [place] [address] PCP - General Family Medicine 11/11/10 Helen Newman PA-C [address] [address] Pulmonary and Critical Care Medicine 04/13/23 Gurmeet Tao APRN.MALTER OPERATOR [address] [place] [address] [facility] 06/18/24 Residential Mortgage Manager Relationship Specialty Start Date End Date Alberto Avelar MD [address] [place] [address] PCP - General Family Medicine 11/11/10 Helen Newman PA-C [address] [place] [address] Pulmonary and Critical Care Medicine 04/13/23 Gurmeet Tao APRN.MALTER OPERATOR [address] [place] [address] [facility] 06/18/24 Residential Mortgage Manager Relationship Specialty Start Date End Date Alberto Avelar MD [address] [place] [address] PCP - General Family Medicine 11/11/10 Helen Newman PA-C [address] [place] [address] Pulmonary and Critical Care Medicine 04/13/23 Gurmeet Tao APRN.MALTER OPERATOR [address] [place] [address] [facility] 06/18/24 Residential Mortgage Manager Relationship Specialty Start Date End Date Alberto Avelar MD [address] [place] [address] PCP - General Family Medicine 11/11/10 Helen Newman PA-C [address] [place] [address] Pulmonary and Critical Care Medicine 04/13/23 Gurmeet Tao APRN.MALTER OPERATOR [address] [place] [address] [facility] 06/18/24 (unrecognized sect ion and content) No Status Records FoundNo Status Records FoundNo Status Records FoundNo Status Records Found INFORMATION SOURCE (unrecogn ized section and content) DATE CREATED AUTHOR 05/02/2023 [facility] DATE CREATED AUTHOR AUTHOR'S ORGANIZ ATION 08/03/2024 [facility] DATE CREATED AUTHOR AUTHOR'S ORGANIZ ATION 10/29/2024 [facility] DATE CREATED AUTHOR AUTHOR'S ORGANIZ ATION 11/20/2024 [facility] FOR RECORDS PERTAINING TO PATIENTS WHO ARE OR HAVE BEEN ENROLLED IN A CHEMICAL DEPENDENCY/SUBSTANCEABUSE PROGRAM, SOME INFORMATION MAY BE OMITTED. This clinical summary was aggregated from multiple sources. Caution should be exercised in using it in the provision of clinical care. This summary normalizes information from multiple sources, and as a consequence, information in this document may materially change the coding, format and clinical context of patient data. In addition, data may be omitted in some cases. CLINICAL DECISIONS SHOULD BE BASED ON THE PRIMARY CLINICAL RECORDS. [employer] provides no warranty or guarantee of the accuracy or completeness of information in this document.
--- NOTE | 2025-02-21 20:25 | CASEMGMT ---
Care Management Face to Face with patient for initial transition planning/care coordination assessment in the ED.? This verse writer introduced self and role at [facility]. Patients in room and provided answers to all assessment questions.? Care providers, pharmacy, and demographics verified. Admitting Diagnosis: SOB Other diagnosis history: ?pneumonia, COPD PCP: ?[facility] Specialists: ?Yobany France and Yandy Solano, pulmonologists Preferred Pharmacy: [facility] Insurance: ?[place] Prescription Benefit: yes Living Will/HPOA: ?Completed and on file LNOK: ? Living Arrangements: ?patient lives with in one story home , 1 step into home Transportation: ?patients DME: ?grab bars, shower bench, lift chair, oxygen through [employer], 2.5 L continuous HHC: ?none SNF/Rehab: none Community Resources: ?none Behavioral Health History: anxiety Patient goals: Patient wishes to discharge home, open to HH if needed. Patient denies any further needs or concerns at this time. Disposition Plan: admission to acute; RN CM/SW to follow for discharge planning needs that may arise. Yudith Garcia, SUPERVISOR [employer], [employer] POWER PLANT OPERATOR
[2025-02-21] MEDS: 0.9% Normal Saline (1000mL) 1,000 ML 100 ML IV (21:25)
[2025-02-21] MEDS: Azithromycin 500 MG in 0.9% Normal Saline (250mL Bag) 250 ML 250 MG IV (21:25)
[2025-02-21 21:28] LABS: Procalcitonin 0.10 ng/mL (<=0.10)
[2025-02-21 22:28] LABS: Troponin T High Sensitivity 12 ng/L (<=22)
[2025-02-22] VITALS (10 sets, daily range): BP systolic 138–177; BP diastolic 60–79; PULSE 72–94; RESP 18–20; TEMP 36.6–37; O2SAT 91–99; BMI 24.7
--- OUTSIDE RECORDS SUMMARY | 2025-02-22 06:14 | XMS RPT_ITS | CCD ---
Author Organization [facility] Care Team Providers Care Auto Adjudication Specialist Name Role Phone Alberto Avelar MD Primary Care Provider Alberto Avelar MD Primary Care Provider Helen Newman PA-C Unavailable Alberto Avelar MD Primary Care Provider [place] [employer] COUNSELOR.Shalini KUMAR Unavailable Aisl[place] [employer] COUNSELOR.Gurmeet KUMAR Unavailable Hiram, Colton Attending Unavailable Elderbrock, Alberto Primary Care Unavailable Hiram, Colton Admitting Unavailable Hiram, Colton Attending Unavailable Hiram, Colton Admitting Unavailable Elderbrock, Alberto Primary Care Unavailable Hiram, Colton Consulting Unavailable Hiram, Colton Attending Unavailable Elderbrock, Alberto Primary Care Unavailable [place] [employer] COUNSELOR.Shalini KUMAR Unavailable Unavail able [place] COUNSELOR.Shalini KUMAR Unavailable MILY TAPIA Attending Unavailable ELDERBROCK, ALBERTO D Primary Care Unavailable ELDERBROCK, ALBERTO D Attending Unavailable SELF Referring Unavailable ELDERBROCK, ALBERTO D Primary Care Unavailable MILY TAPIA Referring Unavailable ELDERBROCK, ALBERTO D Primary Care Unavailable AISLINN, GURMEET Referring Unavailable [...] Primary Care Unavailable HARPSTER, NATHALIE Referring Unavailable ELDERBROCK, ALBERTO D Primary Care Unavailable MILLIE SÁNCHEZ Attending Unavailable HELEN NEWMAN Referring Unavailable ALBERTO AVELAR Primary Care Unavailable HELEN NEWMAN Referring Unavailable ALBERTO AVELAR Primary Care Unavailable NATHALIE MOJICA Attending Unavailable NATHALIE MOJICA Referring Unavailable ALBERTO AVELAR Primary Care Unavailable NATHALIE MOJICA Referring Unavailable ALBERTO AVELAR Primary Care Unavailable Rosio SANDERS, Dr. Berumen Primary Care Provider Dr. Haider Yee DO Emergency Provider [phone] Srikanth SANDERS, Dr. Lynn Jones Admit Provider Dr. Lynn Duke MD Attending Provider Allergies Allergy Classification Reported Allergen(s) Allergy Type Date of Onset Reaction(s) Facility Acetaminophen / HYDROcodone (1 source) Acetaminophen / HYDROcodone Drug Allergy 1 Mental Status Change [facility] Opioid Agonists (1 source) Codeine Drug Allergy 6 Unknown [facility] (20 sources) Acetaminophen / HYDROcodone; Translations: [HYDROCODONE-ACET AMINOPHEN] Drug Allergy 1 Mental Status Change [facility] (20 sources) Codeine; Translations: [CODEINE] Drug Allergy 6 Unknown [facility] (20 sources) environmental [Other] Propensity to adverse reactions 1 Other: See Comments [facility] (20 sources) Mold Extract; Translations: [MOLD] Drug Allergy 4 Other: See Comments [facility] (1 source) Codeine Drug Allergy 5 [facility] Repository (1 source) Penicillins Drug allergy (disorder) 5 [facility] Repository (1 source) OTHER; Translations: [OTHER] Propensity to adverse reactions (disorder) 1 [facility] [place] [facility]ository (1 source) Penicillins Allergy to substance 5 Unknown [facility] Medications Current Medications Medication Drug Class(es) Dates Sig (Normalized) Sig (Original) [id number] 200 actuat albuterol 0.09 mg/actuat metered dose [...] AND WHEEZING 18 g 5 08/12/2020 Active Start: 01-05-2016 Albuterol Sulf ate (Ventolin Hfa) 1 INHALER inhaler Active 1 NMA INHALATION EVERY 6 HOURS NEEDED as needed for Cough January 05, 2016 12:00am Comment on above: Inhale 2 Puffs as in structed every 4 hours as needed. NEEDED FOR SHORTNESS OF BREATH AND WHEEZING albuterol 0.833 mg/ml / ipratropium bromide 0.167 mg/ml inhalation solution (20 sources) Anticholinergic, beta2-Adrenergic Agonist Start: 07-30-19 take 1 mL by inhalation every six hours as needed for wheezing Ipratropium-Albutero l 0.5 mg-3 mg(2.5 mg base)/3 mL solution for nebulization Active 3 mL INHALATION EVERY 6 HOURS NEEDED as needed for wheezing February 21, 2025 12:00am ascorbic acid 250 mg oral tablet (20 sources) Vitamin C take 1 tablet by mouth once daily ascorbic acid, vitamin C, (VITAMIN C) 250 mg tablet Take 250 mg by mouth once daily. Active Comment on above: Take 250 mg by mouth once daily. aspirin 81 mg oral tablet (20 sources) Platelet Aggregation Inhibitor, Nonsteroidal Anti-inflammatory Drug Start: 02-22-20 take 1 tablet by mouth once daily Aspirin 81 mg tablet Active 81 mg PO DAILY February 21, 2025 12:00am Start: 07-05-2016 take 1 tablet by kierra th once daily aspirin, enteric coated (ASPIR-81) 81 mg EC tablet Take 1 tablet by mouth once daily. 0 07/05/2016 Active Start: 06-30-2015 End: 02-21-2025 take 1 tablet by mouth once daily Aspirin 325 MG tablet Discontinued 325 mg PO DAILY June 30, 2015 1:00am February 21, 2025 8:24pm heart [facility] Comment on above: Take 1 tablet by kierra th once daily. benzonatate 100 mg oral capsule (20 sources) Non-narcotic Antitussive Start: 07-30-19 take 1 capsule by mouth three times daily as needed for cough Benzonatate 100 mg capsule Active 100 mg PO 3 TIMES DAILY NEEDED as needed for cough February 21, 2025 12:00am budesonide 0.25 mg/ml inhalation suspension (20 sources) Corticosteroid Start: 02-22-20 take 0.5 mg by inhalation every twelve hours as needed Budesonide 0.5 mg/2 mL suspension for nebulization Active 0.5 mg INHALATION Q12H as needed for sob February 21, 2025 12:00am Start: 10-18-2024 take 0.5 mg by inhal ation every twelve hours as needed budesonide (PULMICORT) 0.5 mg/2 mL nebulizer solution Use 2 mL via nebulizer two times a day as needed. INHALE 2 ML BY NEBULIZER OVER 5-15 MINUTES EVERY 12 HOURS. 120 mL 5 10/18/2024 Active busPIRone hydrochloride 10 mg oral tablet (20 sources) Start: 07-20-2024 take 1 tablet by mouth twice daily [...] take 1 puff(s) by inhalation once daily armqkiylxzr-yeqcubhjm-a ilanter (TRELEGY ELLIPTA) 200-62.5-25 mcg inhalation powder Indications: Stage 4 very severe COPD by GOLD classification (HCC) , Asthma-COPD overlap syndrome (HCC) Inhale 1 puff as instructed once daily. 180 each 3 01/21/2025 01/21/2026 Active Start: 01-29-2024 End: 01-21-2025 take 1 puff(s) by inhalation once daily gmhlsiihmwy-zwtxnemfz-ggnlupnk (TRELEGY ELLIPTA) 200-62.5-25 mcg inhalation powder Indications: Stage 4 very severe COPD by GOLD classification (HCC) , Asthma-COPD overlap syndrome (HCC) Inhale 1 Puff as instructed once daily. 180 Each 3 01/29/2024 01/21/2025 Discontinued Start: 01-29-2024 End: 01-28-2025 take 1 puff(s) by inhalation once daily qocqwhufznc-mrrhujojk-irgchmdc (TRELEGY ELLIPTA) 200-62.5-25 mcg inhalation powder Indications: Stage 4 very severe COPD by GOLD classification (HCC) , Asthma-COPD overlap syndrome (HCC) Inhale 1 Puff as instructed once daily. 180 Each 3 01/29/2024 01/28/2025 Active Start: 01-13-2023 End: 01-13-2024 take 1 puff(s) by inhalation once daily zevcnthzose-hsablpdbo-umjelljk (TRELEGY ELLIPTA) 200-62.5-25 mcg inhalation powder Indications: Stage 4 very severe COPD by GOLD classification (HCC) , Asthma-COPD overlap syndrome Inhale 1 Puff as instructed once daily. 180 Each 3 01/13/2023 01/13/2024 Active Start: 01-13-2023 End: 01-13-2024 take 1 puff(s) by inhalation once daily xvcfwzvfkhc-bmvgcobrn-hsbnshwk (TRELEGY ELLIPTA) 200-62.5-25 mcg inhalation powder Indications: Stage 4 very severe COPD by GOLD classification (HCC) , Asthma-COPD overlap syndrome (HCC) Inhale 1 Puff as instructed once daily. 180 Each 3 01/13/2023 01/13/2024 Active Start: 11-14-2022 End: 01-13-2023 take 1 puff(s) by inhalation once daily zrtjswrhuah-ridbanryz-lyjihjki (TRELEGY ELLIPTA) 200-62.5-25 mcg inhalation powder Indications: Stage 4 very severe COPD by GOLD classification (HCC) , Asthma-COPD overlap syndrome (HCC) Inhale 1 Puff as instructed once daily. 1 Each 11/14/2022 01/13/2023 Discontinued Start: 11-14-2022 take 1 puff(s) by inhalation once daily pmufhlnvvae-mtadnsqaa-iyrvjmpd (TRELEGY ELLIPTA) 200-62.5-25 mcg inhalation powder Indications: Stage 4 very severe COPD by GOLD classification (HCC) , Asthma-COPD overlap syndrome (HCC) Inhale 1 Puff as instructed once daily. 1 Each 11 11/14/2022 Active Comment on above: Inhale 1 Puff as ins tructed once daily. Fluticasone-Umeclidin -Vilanter [Fluticasone Fur. 200 Mcg-Umeclid 62.5 Mcg-Vilant 25 Mcg Inhalat.Powder] (1 source) Start: 02-21-2025 Fluticasone-Umeclid in-Vilanter [Fluticasone Fur. 200 Mcg-Umeclid 62.5 Mcg-Vilant 25 Mcg Inhalat.Powder] (Fluticasone Fur. 200 Mcg-Umeclid 62.5 Mcg-Vilant ) 200-62.5-25 mcg blister with device Active 1 NMA INHALATION DAILY February 21, 2025 12:00am furosemide 20 mg oral tablet (20 sources) [...] DAY 120 tablet 3 05/03/2021 05/21/2022 Discontinued Start: 08-25-2019 End: 07-22-2024 take 1 tablet by mouth twice daily Guaifenesin 1,200 MG tablet Active 1200 mg PO TWICE A DAY 14 7 0 July 22, 2024 10:45am thins secretions Comment on above: TAKE 2 TABLETS BY [facility] TWICE A DAY levoFLOXacin 500 mg oral tablet (13 sources) Quinolone Antimicrobial Start: 07-22-19 take 1 tablet by mouth once daily levoFLOXacin (LEVAQUIN) 500 mg tablet Indications: Stage 4 very severe COPD by GOLD classification (HCC) Take 1 tablet by mouth once daily. 5 tablet 11/18/2024 Active loratadine 10 mg oral capsule (20 sources) Start: 02-22-20 take 1 capsule by mouth once daily Loratadine 10 mg capsule Active 10 mg PO DAILY February 21, 2025 12:00am Comment on above: Take 10 mg by mouth once daily. montelukast 10 mg oral tablet (20 sources) Leukotriene Receptor Antagonist Start: 04-26-20 End: 05-15-20 24 take 1 tablet by mouth at bedtime Montelukast 10 mg tablet Active 10 mg PO AT BEDTIME July 20, 2024 1:00am Pulmonary Comment on above: Take 1 tablet by kierra th daily at bedtime. TAKE 1 TABLET BY KIERRA TH EVERYDAY AT BEDTIME Multivitamin 1 EACH tablet (1 source) Start: 08-25-19 20 Multivitamin 1 EACH tablet Active 1 NMA PO DAILY August 25, 2019 1:00am supplement MULTIVITAMIN ORAL (20 sources) MULTIVITAMIN ORA L Take by mouth. States contains vitamin b,c,d Active MULTIVITAMIN ORA L Take by mouth. States contains vitamin b,c,d 0 Active Comment on above: Take by mouth. State s contains vitamin b,c,d Mv-Min-Vit C-Glu-Talia Ac-Hb124 1 EACH tablet,chewable (1 source) Start: 0 take 1 tablet by mouth once daily Mv-Min-Vit C-Glu-Talia Ac-Hb124 1 EACH tablet,chewable Active 1 NMA PO DAILY August 25, 2019 1:00am supplement Nebulizer Accessories kit (20 sources) Start: 5 Nebulizer Accessories kit Indications: Stage 4 very severe COPD by GOLD classification (HCC) 1 Kit two times a day as needed (SOB, wheezing, cough). 1 Kit 11 07/30/2024 Active pantoprazole 40 mg delayed release oral tablet (20 sources) Proton Pump Inhibitor Start: 1 End: 5 take 1 tablet by mouth once daily Pantoprazole 40 mg tablet,delayed release (DR/EC) Active 40 mg PO DAILY February 21, 2025 12:00am Comment on above: TAKE 1 TABLET BY KIERRA TH EVERY DAY Take 1 tablet by kierra th once daily. predniSONE 10 mg oral tablet (10 sources) Start: 5 End: 5 take 5 tablets by mouth once daily, then take 4 tablets by mouth once daily, then take 3 tablets by mouth once daily, then take 2 tablets by mouth once daily, then take 1 tablet by mouth once daily predniSONE (DELTASONE) 10 mg tablet Indications: Stage 4 very severe COPD by GOLD classification (HCC) Take 5 tablets by mouth once daily for 3 days, THEN 4 tablets once daily for 3 days, THEN 3 tablets once daily for 3 days, THEN 2 tablets once daily for 3 days, THEN 1 tablet once daily for 3 days. 45 tablet 11/18/2024 12/03/2024 Active Start: 07-22-2024 End: 02-21-2025 take 2 tablets by mouth once daily Prednisone 20 mg tablet Discontinued 40 mg PO DAILY 10 5 0 July 22, 2024 1:00am February 21, 2025 8:25pm Start: 06-21-2024 End: 07-03-2024 take 2 tablets [...] food. 21 tablet 0 05/21/2022 05/30/2022 Active Start: 08-25-2019 End: 07-20-2024 Prednisone 10 MG tablet Disc ontinued 10 mg PO DIRECTED August 29, 2019 1:00am July 20, 2024 4:37pm TAKE 4 TABLETS BY MOUTH DAILY WITH FOOD FOR 3 DAYS, THEN TAKE 3 TABLETS BY MOUTH DAILY WITH FOOD FOR 3 DAYS, THEN TAKE 2 TABLETS BY MOUTH DAILY WITH FOOD FOR 3 DAYS, THEN TAKE 1 TABLETS BY MOUTH DAILY WITH FOOD FOR 3 DAYS, THEN STOP Comment on above: Take 4 tabs daily fo r 3 days, then 2 tabs daily for 3 days, then 1 tab daily for 3 days with food. traZODone hydrochloride 50 mg oral tablet (20 sources) Serotonin Reuptake Inhibitor Start: End: take 1 tablet by mouth at bedtime Trazodone 50 mg tablet Active 50 mg PO AT BEDTIME February 21, 2025 12:00am vitamin e 90 mg oral capsule (20 [...] increase ramp to 20 minutes. 1 Each 999812/30/2021 11/14/2022 Discontinued (Discontinued by Patient) Start: 12-30-2021 CPAP Change Au to bilevel settings to EPAP min 3 cmH2O, IPAP max 15 cmH2O, with pressure support 4-6 cmH2O. Please increase ramp to 20 minutes. 1 Each 999812/30/2021 Active Comment on above: Change Auto bilevel [...] a note to see current settings/supplies/DME information. diphenhydrAMINE hydrochloride 25 mg oral tablet (1 source) Histamine-1 Receptor Antagonist Start : 01-04 End: 02-21 take 1 tablet by mouth at bedtime Diphenhydramine Hcl (Benadryl Allergy) 25 MG tablet Discontinued 25 mg PO AT BEDTIME January 05, 2016 12:00am February 21, 2025 8:25pm sleep 30 actuat fluticasone furoate 0.1 mg/actuat / umeclidinium 0.0625 mg/actuat / vilanterol 0.025 mg/actuat dry powder inhaler (20 sources) Anticholinergic, Corticosteroid, beta2-Adrenergic Agonist Start : 03-12 End: 11-14 take 1 puff(s) by inhalation once daily TRELEGY ELLIPTA 100-62.5-25 mcg inhalation powder Indications: Pulmonary emphysema, unspecified emphysema type (HCC) INHALE 1 PUFF INSTRUCTED ONCE DAILY. 180 Each 3 03/14/2022 11/14/2022 Discontinued Start: 08-25-2019 End: 02-21-2025 take 1 dose by inhalation once daily Jujrbyvpbvz-Xyhrrvmko-Cawcooex 1 EACH blister with device Discontinued 1 NMA IH DAILY August 25, 2019 1:00am February 21, 2025 8:19pm lungs Comment on above: INHALE 1 PUFF INS TRUCTED ONCE DAILY. Ginkgo Biloba (1 source) Start: 01-05-20 End: 08-29-19 take 1 tablet by mouth once daily Ginkgo Biloba 120 MG tablet Discontinued 120 mg PO DAILY January 05, 2016 12:00am August 29, 2019 12:44pm supplement Ginseng (1 source) Start: 08-25-19 End: 08-29-19 take 1 capsule by mouth once daily Ginseng 250 MG capsule Discontinued 250 mg PO DAILY August 25, 2019 1:00am August 29, 2019 12:44pm supplement hydrOXYzine hydrochloride 25 mg oral tablet (7 sources) Antihistamine Start: 09-05-19 End: 02-04-20 take 1-2 tablets by mouth at bedtime [...] 1 EVERY 6 HOURS NEEDED FOR ITCHING LORazepam 1 mg oral tablet (1 source) Benzodiazepine Start: 08-29-19 End: 02-22-20 take 1 tablet by mouth every eight hours as needed for anxiety Lorazepam 1 MG tablet Discontinued 1 mg PO EVERY 8 HOURS NEEDED as needed for Anxiety 14 0 August 29, 2019 1:00am February 21, 2025 8:25pm melatonin 10 mg extended release oral tablet (20 sources) End: 11-02-19 melatonin 10 mg chew Take by mouth. 11/01/2024 Discontinued (Course of therapy completed) melatonin 1 mg t ablet Take by mouth. 0 Active Comment on above: Take by mouth. nicotine 2 mg oral lozenge (1 source) Cholinergic Nicotinic Agonist Start: 08-25-19 End: 02-22-20 Nicotine (Polacrilex) 2 MG lozenge Discontinued 2 mg BC DAILY as needed for nicotine cravings August 25, 2019 1:00am February 21, 2025 8:25pm omeprazole 40 mg delayed release oral capsule (1 source) Proton Pump Inhibitor Start: 08-25-19 End: 02-22-20 take 1 capsule by mouth once daily Omeprazole 40 MG capsule,delayed release(DR/EC) Discontinued 40 mg PO DAILY August 25, 2019 1:00am February 21, 2025 8:25pm GERD spirulina 500 mg oral tablet (1 source) Start: 01-05-20 End: 08-29-19 take 1 tablet by mouth once daily Blue-Green Algae (Spirulina) 500 MG tablet Discontinued 500 mg PO DAILY January 05, 2016 12:00am August 29, 2019 12:45pm supplement 7 actuat umeclidinium 0.0625 mg/actuat / vilanterol 0.025 mg/actuat dry powder inhaler (1 source) Anticholinergic, beta2-Adrenergic Agonist Start: 01-05-20 End: 08-29-19 take 1 dose by inhalation once daily Umeclidinium-Vilante rol (Anoro Ellipta) 1 EACH Disk.W.Dev Discontinued 1 NMA IH DAILY January 05, 2016 12:00am August 29, 2019 1:23pm lungs Problems Active Problems Problem Classification Problem Date Documented Da te Episodic/Chronic Acute cerebrovascular disease (20 sources) Hemorrhage into subarachnoid space of neuraxis; Translations: [Nontraumatic subarachnoid hemorrhage, unspecified] Onset: 01-05-2016 06-28-2021 Chronic Allergic reactions (2 sources) H/O: non-drug allergy; Translations: [Allergy status to unspecified drugs, medicaments and biological substances status] Episodic Anxiety disorders (5 sources) Anxiety; Translations: [Anxiety disorder, unspecified] Onset: [...] Translations: [Hyperlipidemia, unspecified] Onset: 11-11-2010 06-28-2021 Chronic Influenza (1 source) Influenza due to Influenza A virus; Translations: [Influenza due to other identified influenza virus with other respiratory manifestations] 08-13-2019 Episodic Nutritional deficiencies (20 sources) Undernutrition; Translations: [Mild [...] finding of lung field] 05-01-2023 Episodic Other lower respiratory disease (1 source) Hypoxemia; Translations: [Hypoxemia] 02-21-2025 Episodic Other lower respiratory disease (1 source) Acute respiratory distress; Translations: [Acute respiratory distress] 02-21-2025 Episodic Other upper respiratory disease (20 sources) [...] sources) Posterior rhinorrhea; Translations: [Postnasal drip] Episodic Pneumonia (except that caused by tuberculosis or sexually transmitted disease) (8 sources) Bilateral pneumonia; Translations: [Pneumonia, unspecified organism] Onset: 07-22-2024 07-30-2024 Episodic Residual codes; unclassified (20 sources) Obstructive [...] neoplasm of colon] Onset: 04-03-2019 04-03-2019 Episodic Residual codes; unclassified (20 sources) At risk of epileptic fits; Translations: [Other specified personal risk factors, not elsewhere classified] Onset: 01-05-2016 06-28-2021 Episodic Residual codes; unclassified (20 sources) Postoperative state; Translations: [Other specified postprocedural states] Onset: 01-07-2016 01-08-2016 Episodic Results Test Name Value Interpretation Reference Range Facility Absolute lymphocyte countOrd ered By: Stefanie Chin on 02-21-2025 Lymphocytes Auto (Unsp spec) [#/Vol] 1.29 10*3/uL 0.83-4.51 [facility] Absolute neutrophil countOrd ered By: Stefanie Chin on 02-21-2025 Neutrophils (Bld) [#/Vol] 10.4 10*3/uL High 2.0-7.7 [facility] Anion gap in Serum or Plasma Ordered By: Stefanie Chin on 02-21-2025 Anion gap [Moles/Vol] 13 mmol/L 5-15 [facility] Automated lymphocyte count a s percentage of total leukocytesOrdered By: Stefanie Chin on 02-21-2025 Lymphocytes/100 WBC Auto (Unsp spec) 9.8 % Low 19-41 [facility] BUN/creatinine ratioOrdered By: Stefanei Chin on 02-21-2025 Urea nitrogen/Creatinine [Mass ratio] 10.8 mg/mg 10-20 [facility] Basophil percentageOrdered B y: Stefanie Chin on 02-21-2025 Basophils/100 WBC (Bld) 0.5 % 0-1 [facility] CO2 (BldV) [Moles/Vol]Ordere d By: Haider Yee on 02-21-2025 CO2 [Moles/Vol] 37 mmol/L High 23-33 [facility] Carbon dioxide, total [Moles /volume] in Central venous bloodOrdered By: Stefanie Chin on 02-21-2025 CO2 [Moles/Vol] 26.4 mmol/L 21.0-32.0 [facility] Chloride assayOrdered By: Reva Chin on 02-21-2025 Chloride [Moles/Vol] 101 mmol/L 98-108 [facility] Eosinophil percentageOrdered By: Stefanie Chin on 02-21-2025 Eosinophils/100 WBC (Bld) 1.7 % 0-5 [facility] Erythrocyte distribution wid th ratioOrdered By: Stefanie Chin on 02-21-2025 Erythrocyte distribution width (RBC) [Ratio] 12.8 % 11.6-14.6 [facility] Erythrocyte distribution wid th standard deviationOrdered By: Stefanie Chin on 02-21-2025 Erythrocyte distribution width (RBC) [Ratio] 42.0 fl 35.1-43.9 [facility] Glomerular filtration rate ( GFR) estimation/1.73 sq m using serum, plasma, or whole bOrdered By: Stefanie Chin on 02-21-2025 GFR/1.73 sq M.predicted among non-blacks MDRD (S/P/Bld) [Vol rate/Area] 108 mL/min/{1.73_m2} >60 [facility] Comment on above: mL/min/1.73m2 CKD-EP I Creatinine Equation (2020) [facility] deOrdered By: Haider Yee on 02-21-2025 Glucose [Mass/Vol] 92 mg/dL 74-106 [facility] Comment on above: MANAGEMENT OF PATIEN T CARE PER NURSING PROTOCOL Hematocrit Auto (Bld) [Volum e fraction]Ordered By: Stefanie Chin on 02-21-2025 Hematocrit (Bld) [Volume fraction] 42.1 % 40-54 [facility] Hemoglobin measurementOrdere d By: Stefanie Chin on 02-21-2025 Hemoglobin (Bld) [Mass/Vol] 14.2 g/dL 13.0-16.5 [facility] Immature granulocytes/100 WB C Auto (Bld)Ordered By: Stefanie Chin on 02-21-2025 Immature granulocytes/100 WBC (Bld) 0.400 % 0.0-0.9 [facility] Comment on above: IG% - Immature Granu locytes (promyelocytes, myelocytes and metamyelocytes) > 1% indicates that a LEFT SHIFT is Present. Lactic acid measurementOrder ed By: Stefanie Chin on 02-21-2025 Lactate [Moles/Vol] 1.3 mmol/L 0.0-2.0 [facility] MCV (mean corpuscular volume ) determinationOrdered By: Stefanie Chin on 02-21-2025 MCV (RBC) [Entitic vol] 90.0 fL 80-94 [facility] Mean corpuscular hemoglobin (MCH) determinationOrdered By: Stefanie Chin on 02-21-2025 MCH (RBC) [Entitic mass] 30.3 pg 27.0-32.0 [facility] Mean corpuscular hemoglobin concentration (MCHC) determinationOrdered By: Stefanie Chin on 02-21-2025 MCHC (RBC) [Mass/Vol] 33.7 g/dL 32-36 [facility] Mean platelet volume determi nationOrdered By: Stefanie Chin on 02-21-2025 Platelet mean volume (Bld) [Entitic vol] 9.3 fL 6.2-12.0 [facility] Monocyte percentageOrdered B y: Stefanie Chin on 02-21-2025 Monocytes/100 WBC (Bld) 9.0 % 0-10 [facility] Natriuretic peptide.B prohor hudson N-Terminal [Mass/volume] in Serum or PlasmaOrdered By: Haider Yee on 02-21-2025 Natriuretic peptide.B prohormone N-Terminal [Mass/Vol] 49 pg/mL <900 [facility] Comment on above: Heart Failure Unlike ly: < 300 pg/mLHeart Failure Likely< 50 Years: > 450 pg/mL50-75 Years: > 900 pg/mL>75 Years: > 1800 pg/mL Neutrophil percentageOrdered By: Stefanie Chin on 02-21-2025 Neutrophils/100 WBC (Bld) 78.6 % High 47-70 [facility] No Panel InformationOrdered By: Haider Yee on 02-21-2025 Blood Gas Sample Site Not entered [facility] Blood Gas Specimen Type BETO [facility] Oxygen Delivery Device Not entered [facility] Nucleated red blood cell per centageOrdered By: Stefanie Chin on 02-21-2025 Nucleated RBC/100 WBC (Bld) [Ratio] 0 % 0-5 [facility] Platelet countOrdered By: Reva Chin on 02-21-2025 Platelets (Bld) [#/Vol] 341 10*3/uL 150-450 [facility] Potassium measurement (mass/ volume)Ordered By: Stefanie Chin on 02-21-2025 Potassium (Unsp spec) [Mass/Vol] 3.9 mmol/L 3.3-5.1 [facility] RBC Auto (Bld) [#/Vol]Ordere d By: Stefanie Chin on 02-21-2025 RBC (Bld) [#/Vol] 4.68 10*6/uL 4.6-6.2 [facility] Serum creatinine measurement (mass/volume)Ordered By: Stefanie Chin on 02-21-2025 Creatinine [Mass/Vol] 0.68 mg/dL Low 0.70-1.20 [facility] Serum glucose measurement (m ass/volume)Ordered By: Stefanie Chin on 02-21-2025 Glucose [Mass/Vol] 93 mg/dL 70-99 [facility] Serum or plasma calcium harleen urement (mass/volume)Ordered By: Stefanie Chin on 02-21-2025 Calcium [Mass/Vol] 9.4 mg/dL 7.6-11.0 [facility] Serum or plasma urea nitroge n measurement (mass/volume)Ordered By: Stefanie Chin on 02-21-2025 Urea nitrogen [Mass/Vol] 7 mg/dL 4-19 [facility] Sodium levelOrdered By: Rodrick Chin on 02-21-2025 Sodium [Moles/Vol] 140 mmol/L 133-145 [facility] Troponin T.cardiac [Mass/vol ume] in Serum or Plasma by High sensitivity methodOrdered By: Stefanie Chin on 02-21-2025 Troponin T.cardiac High sensitivity method [Mass/Vol] 13 ng/L <22 [facility] Troponin T.cardiac High sensitivity method [Mass/Vol] 14 ng/L <22 [facility] Venous blood base excess galen surementOrdered By: Haider Yee on 02-21-2025 Base excess Calc (BldV) [Moles/Vol] 11 mmol/L High -1.0-3.5 [facility] Venous blood bicarbonate galen surementOrdered By: Haider Yee on 02-21-2025 HCO3 (Bld) [Moles/Vol] 35 mmol/L High 22-26 [facility] Venous blood oxygen saturati on measurementOrdered By: Haider Yee on 02-21-2025 Oxygen saturation in Blood 65 % 50-70 [facility] Venous blood pH measurementO rdered By: Haider Yee on 02-21-2025 pH (BldV) 7.41 [pH] 7.32-7.42 [facility] Venous blood partial pressur e of carbon dioxide measurementOrdered By: Haider Yee on 02-21-2025 CO2 (BldV) [Partial pressure] 56.0 mm[Hg] High 41-51 [facility] Venous blood partial pressur e of oxygen measurementOrdered By: Haider Yee on 02-21-2025 Oxygen (BldV) [Partial pressure] 34 mm[Hg] 25-40 [facility] White blood cell (WBC) count Ordered By: Stefanie Chin on 02-21-2025 WBC (Bld) [#/Vol] 13.2 10*3/uL High 4.4-11.0 [facility] CNOVon 11-18-2024 CNOV Office Visit (PULMWS ) -- KARLI DUKE ([id number]) 1965 M Date Time Provider Department 11/18/24 11:00 AM NATHALIE MOJICA PULHARSHIL During your visit today, we recorded the following information about you: Pulse Respiration 61/minute 19/minute Nathalie Mojica APRN.CNP 11/18/2024 1:24 PM Signed [facility] INCIDENTAL LUNG NODULE PROGRAM Impression / Recommendations 1. Lung nodules (Primary) JANNET nodule of concern is resolved. All other nodules are small and stable. There are new inflammatory opacities in RML, RLL, and LLL. 2. Nicotine Dependence, Former: Continue to abstain from smoking cigarettes. 3. Stage 4 very severe COPD by GOLD classification ([facility]) Continue to follow up with program lead. On supplemental oxygen, Trelegy and singulair daily. Take prednisone and levaquin starting today. Reviewed instructions for nebulizers and albuterol use. Recommended Duoneb every 6 hours and budesonide nebulizer twice daily for the next few days then can transition to as needed. He may use albuterol inhaler every 4 hours in coordination with duoneb doses. Follow up with program lead if any new or continued symptoms. If worsening symptoms he should go to the emergency room. -- Requesting Provider: Nathalie Mojica Reason for the [...] images. Pt had interval CTA Chest at [facility] 07/20/2024 and the JANNET 5 mm nodule [...] 74.8 kg (165 lb)] Modified Medical Research [place] Dyspnea Scale (MMRC) I am too breathless [...] inflammatory opa (more content not included)... Normal [facility] CT CHEST WO IVCONon 11-19-19 CT CHEST WO IVCON * * *Final Report* * * DATE OF EXAM: Nov 18 2024 11:10AM [facility] 0541 - CT CHEST WO IVCON / [...] sho lymphadenopathy is seen within the chest. Supervisor Pipelines: PSCB Transcribe Date/Time: Nov 19 2024 6:22A Dictated by : KAELA HAND MD This examination was interpreted and the report reviewed and electronically signed by: KAELA HAND MD on Nov 19 2024 6:28AM EST [id number] Normal [facility]28[facility]20[facility]ANELLE[facility] -- KARLI DUKE ([id number]) 1965 M Date Time Provider Department 10/28/24 DIAN VILLARREAL During your visit today, we recorded the following information about you: Dian Villarreal, Delivery Recruiter 10/28/2024 2:44 PM Signed Called patient regarding pulmonary rehab program. Patient answered and stated that they will give me a call back when they are interested. Patient has my phone number to call me back. [phone] Allergies As of Date: 10/28/2024 Noted Allergy Reaction CODEINE 01/05/2016 16 - Unknown MOLD 06/18/2024 14 - Other: See Comments VICODIN (HYDROCODONE-ACETAMINOPHE* 11/11/2010 1 - Mental Status Change Date Reviewed: 10/18/2024 Reviewed by: Mily Tapia APRN.STEEL RIGGER - Fully Assessed Reason for Visit: Appointment [...] tablet by mouth daily at bedtime. - whtifmoofow-asqwnxgeg-gigw nter (TRELEGY ELLIPTA) 200-62.5-25 mcg inhalation powder Inhale [...] right elbow [S59.901A] 12/23/2013 SAH (subarachnoid hemorrhage) ([facility]) [I60.9] 01/05/2016 At risk for seizures [Z91.89] 01/05/2016 Acute headache [R51.9] 01/05/2016 Bleeding in brain due to brain aneurysm (HCC) [*01/05/2016 Tinea corporis [B35.4] 01/06/2016 Postoperative state [Z98.890] 01/07/2016 IVH (intraventricular hemorrhage) ([facility]) [I61.5] 01/07/2016 Brain aneurysm [I67.1] 01/07/2016 Malnutrition of mild degree (HCC) [E44.1] 01/12/2016 Pulmonary emphysema (HCC) [J43.9] 07/05/2016 Allergic rhinitis due to fungal spores [J30.89] 04/10/2018 Seasonal allergic rhinitis due to pollen [J30.1]04/10/2018 Screening for colon cancer [Z12.11] 04/03/2019 GHASSAN on CPAP [G47.33] 12/30/2021 Encounter Status:Closed by DIAN VILLARREAL on 10/28/24 [facility] 10-21-2024 [facility] Telephone (JANELLE) -- KARLI DUKE ([id number]) 1965 M Date Time Provider Department 10/21/24 DIAN VILLARREAL During your visit today, we recorded the following information about you: Dian Villarreal, Delivery Recruiter 10/21/2024 1:18 PM Signed Called patient regarding pulmonary rehab program. Patient did not answer, so I left a message on Mobile Captain with instructions on how to contact me. [phone] Allergies As of Date: 10/21/2024 Noted Allergy Reaction CODEINE 01/05/2016 16 - Unknown MOLD 06/18/2024 14 - Other: See Comments VICODIN (HYDROCODONE-ACETAMINOPHE* 11/11/2010 1 - Mental Status Change Date Reviewed: 10/18/2024 Reviewed by: Mily Tapia, DIOGO.STEEL RIGGER - Fully Assessed Reason for Visit: Appointment [...] tablet by mouth daily at bedtime. - wgfqweoiyco-gwoklbwtt-tvut nter (TRELEGY ELLIPTA) 200-62.5-25 mcg inhalation powder Inhale [...] right elbow [S59.901A] 12/23/2013 SAH (subarachnoid hemorrhage) ([facility]) [I60.9] 01/05/2016 At risk for seizures [Z91.89] 01/05/2016 Acute headache [R51.9] 01/05/2016 Bleeding in brain due to brain aneurysm (HCC) [*01/05/2016 Tinea corporis [B35.4] 01/06/2016 Postoperative state [Z98.890] 01/07/2016 IVH (intraventricular hemorrhage) ([facility]) [I61.5] 01/07/2016 Brain aneurysm [I67.1] 01/07/2016 Malnutrition of mild degree (HCC) [E44.1] 01/12/2016 Pulmonary emphysema (HCC) [J43.9] 07/05/2016 Allergic rhinitis due to fungal spores [J30.89] 04/10/2018 Seasonal allergic rhinitis due to pollen [J30.1]04/10/2018 Screening for colon cancer [Z12.11] 04/03/2019 GHASSAN on CPAP [G47.33] 12/30/2021 Encounter Status:Closed by DIAN VILLARREAL on 10/21/24 [facility] 08-01-2024 CN Office Visit (FAMPWS ) -- KARLI DUKE ([id number]) 1965 M Date Time Provider Department 08/01/24 10:00 AM [facility] During your visit today, we recorded the [...] distances due to his SOB and COPD. [facility] Hospital d/c summary: Discharge Diagnosis (1) COPD [...] Mucinex and levofloxacin. Advised follow-up he is program lead Dr. Millie Sánchez in 2 weeks. 2. [...] needed. Pantoprazole (more content not included)... Normal [facility] CNOVon 07-30-2024 CNOV Office Visit (PULMWS ) -- SRIKANTHKARLI David ([id number]) 1965 M Date Time Provider Department 07/30/24 1:00 PM MILY TAPIA PULMWS During your visit today, we recorded the following information about you: Pulse Respiration Blood pressure 85/minute 16/minute 122/72 Mily Tapia, [employer]OM[employer]BI[employer] COUNSELOR.STEEL RIGGER 07/30/2024 1:42 PM Signed Pulmonary Medicine Patients [...] albuterol. He presents today for hospital follow-up. [facility] 02/29/2024 with relatively stable respiratory symptoms. [...] rhinitis Asthma COPD (chronic obstructive pulmonary disease) ([facility]) Very severe Dependence on continuous supplemental oxygen Other and unspecified hyperlipidemia SAH (subarachnoid hemorrhage) ([facility]) Sleep apnea Tobacco abuse Quit 2016. Allergies: Codeine Unknown Mold Other: See Comments [...] tablet by mouth three times a day. ovecmbixbwj-fwbpoweme-xyzf nter 200-62.5-25 mcg inhalation powder Commonly known as: [...] right upper lobe groundglass opacity appear stable. Supervisor Pipelines: FABIANA Transcribe Date/Time: May 22 2024 12:58P Dictated by : BIBI BOWER MD This examination was interpreted and the report reviewed and electronically signed by: BIBI BOWER MD on May 22 2024 1:04PM EST Results-Findings * * *Final Report* * * DATE OF EXAM: May 20 2024 11:37AM [facility] 0541 - CT CHEST WO IVCON / PROCEDURE REASON: Lung nodules * * * * Physician Interpretation * * * * EXAMINATION: CHEST CT (more content not included)... Normal [facility] metabolic 2000 panelon 07-30-2024 Albumin [Mass/Vol] 4.4 g/dL Normal 3.9-4.9 [facility] Comment on above: Order Comment: Speci men Type: BLOOD SPECIMENOrdering Facility: [facility] Address: [address] [place] [address] Performed By: #### 2 4323-8 ####[facility] MARYWNCLIA [id number] [place] [address] [place] ALP [Catalytic activity/Vol] 81 U/L Normal 38-113 [facility] Comment on above: Order Comment: Speci men Type: BLOOD SPECIMENOrdering Facility: [facility] Address: [address] [place] [address] Performed By: #### 2 4323-8 ####[facility] MARYWNCLIA [id number] [place] [address] [place] ALT [Catalytic activity/Vol] 84 U/L High 10-54 [facility] Comment on above: Order Comment: Speci men Type: BLOOD SPECIMENOrdering Facility: [facility] Address: [address] [place] [address] Performed By: #### 2 4323-8 ####[facility]ENTERNCA [id number] [place] [address] [place] Anion gap [Moles/Vol] 11 mmol/L Normal 8-15 [facility] Comment on above: Order Comment: Speci men Type: BLOOD SPECIMENOrdering Facility: [facility] Address: [address] [place] [address] Performed By: #### 2 4323-8 ####[facility]ENTERNCLIA [id number] [place] [address] [place] AST [Catalytic activity/Vol] 35 U/L Normal 14-40 [facility] Comment on above: Order Comment: Speci men Type: BLOOD SPECIMENOrdering Facility: [facility] Address: [address] [place] [address] Performed By: #### 2 4323-8 ####[facility] JAK MILLTOWNCLIA [id number] [place] [address] [place] Bilirubin [Mass/Vol] 0.4 mg/dL Normal 0.2-1.3 [facility] Comment on above: Order Comment: Speci men Type: BLOOD SPECIMENOrdering Facility: [facility] Address: [address] [place] [address] Performed By: #### 2 4323-8 ####[facility] MILLTOWNCLIA [id number] [place] [address] [place] Calcium [Mass/Vol] 10.1 mg/dL Normal 8.5-10.2 [facility] Comment on above: Order Comment: Speci men Type: BLOOD SPECIMENOrdering Facility: [facility] Address: [address] [place] [address] Performed By: #### 2 4323-8 ####[facility] MARYWNCLIA [id number] [place] [address] [place] Chloride [Moles/Vol] 96 mmol/L Low 98-107 [facility] Comment on above: Order Comment: Speci men Type: BLOOD SPECIMENOrdering Facility: [facility] Address: [address] [place] [address] Performed By: #### 2 4323-8 ####[facility] MILLTOWNCLIA [id number] [place] [address] [place] CO2 [Moles/Vol] 33 mmol/L High 22-30 [facility] Comment on above: Order Comment: Speci men Type: BLOOD SPECIMENOrdering Facility: [facility] Address: [address] [place] [address] Performed By: #### 2 4323-8 ####[facility] MARYWNCLIA [id number] [place] [address] [place] Creatinine [Mass/Vol] 0.81 mg/dL Normal 0.73-1.22 [facility] Comment on above: Order Comment: Marquita ortiz Type: BLOOD SPECIMENOrdering Facility: [facility] Address: [address] [place] [address] Performed By: #### 2 4323-8 ####[facility] [id number] [place] [address] [place] Creatinine and Glomerular filtration rate.predicted panel (S/P/Bld) 103 mL/min/1.73m??? Normal >=60 [facility] Comment on above: Order Comment: Marquita ortiz Type: BLOOD SPECIMENOrdering Facility: [facility] Address: [address] [place] [address] Result Comment: Abigail mated Glomerular Filtration Rate [...] actual GFR. Performed By: #### 2 4323-8 ####[facility] [id number] [place] [address] [place] Glucose [Mass/Vol] 120 mg/dL High 74-99 [facility] Comment on above: Order Comment: Marquita ortiz Type: BLOOD SPECIMENOrdering Facility: [facility] Address: [address] [place] [address] Result Comment: The [place] Diabetes Association (ADA) provides guidance for cutoff [...] Standards of Medical Care in Diabetes 2016, [place] Diabetes Association. Diabetes Care. 2016.39(Suppl 1). Performed By: #### 2 4323-8 ####[facility] JOCELINEDYLAN [id number] [place] [address] [place] Potassium [Moles/Vol] 3.8 mmol/L Normal 3.7-5.1 [facility] Comment on above: Order Comment: Speci men Type: BLOOD SPECIMENOrdering Facility: [facility] Address: [address] [place], [place] [address] Performed By: #### 2 4323-8 ####[facility]ENTERNCMAYCO [id number] [place] [address] [place] Protein [Mass/Vol] 7.3 g/dL Normal 6.3-8.0 [facility] Comment on above: Order Comment: Speci men Type: BLOOD SPECIMENOrdering Facility: [facility] Address: [address] [place] [address] Performed By: #### 2 4323-8 ####[facility] HOSPITALStefanie [id number] [place] [address] [place] Sodium [Moles/Vol] 140 mmol/L Normal 136-144 [facility] Comment on above: Order Comment: Speci men Type: BLOOD SPECIMENOrdering Facility: [facility] Address: [address] [place] [address] Performed By: #### 2 4323-8 ####[facility] HOSPITALA [id number] [place] [address] [place] Urea nitrogen [Mass/Vol] 14 mg/dL Normal 9-24 [facility] Comment on above: Order Comment: Speci men Type: BLOOD SPECIMENOrdering Facility: [facility] Address: [address] [place] [address] Performed By: #### 2 4323-8 ####[facility] [id number] [place] [id number] [place] LIPID PANEL, NONFASTINGon Cholesterol [Mass/Vol] 232 mg/dL High <200 [facility] Comment on above: Order Comment: Speci men Type: BLOOD SPECIMENOrdering Facility: [facility] Address: [address] [place] [address] Result Comment: <200 mg/dL, Desirable 200-239 mg/dL, Borderline high >239 mg/dL, High Performed By: #### L IPNF ####[facility] LABCLIA [id number] [place] [address] [place] HDL CHOLESTEROL, NF 46 mg/dL Normal >39 [facility] Comment on above: Order Comment: Speci men Type: BLOOD SPECIMENOrdering Facility: [facility] Address: [address] [place] [address] Result Comment: 40-5 9 mg/dL, Acceptable >59 mg/dL, High: Negative risk factor for coronary heart disease <40 mg/dL, Low: Positive risk factor for coronary heart disease Performed By: #### L IPNF ####[facility] LABCLIA [id number] [place] [address] [place] LDL CHOLESTEROL, NF 134 mg/dL High <100 [facility] Comment on above: Order Comment: Speci men Type: BLOOD SPECIMENOrdering Facility: [facility] Address: [address] [place] [address] Result Comment: <100 mg/dL, Optimal 100-129 mg/dL, Near optimal/above optimal 130-159 mg/dL, Borderline high 160-189 mg/dL, High >189 mg/dL, Very high Secondary prevention optimal LDL Cholesterol levels are recommended to be < 70 mg/dL Performed By: #### L IPNF ####[facility] LABCLIA [id number] [place] [address] [place] LDL/HDL RATIO, NF 2.91 mg/dL High <2.54 [facility] Comment on above: Order Comment: Speci men Type: BLOOD SPECIMENOrdering Facility: [facility] Address: [address] [place] [address] Result Comment: Rey valdez: 1. National Cholesterol Education Program ATP III Guideline At-A-Glance Quick Desk Reference: National Heart, Lung, and Blood [place]. National Institutes of Health. 2001: NIH Publication No. 01-3305. 2. An International Atherosclerosis Society position paper: global recommendations for the management of dyslipidemia: executive summary, Atherosclerosis. 2014: 232(2):410-413. Performed By: #### L IPNF ####[facility] LABCLIA [id number] [address] [place] NON HDL CHOL, NF 186 mg/dL High <130 [facility] Comment on above: Order Comment: Crcici ortiz Type: BLOOD SPECIMENOrdering Facility: [facility] Address: [address] [place] [address] Result Comment: <130 mg/dL, Optimal 130-159 mg/dL, Near optimal/above optimal 160-189 mg/dL, Borderline high 190-219 mg/dL, High >219 mg/dL, Very high Secondary prevention optimal non HDL Cholesterol levels are recommended to be <100 mg/dL Performed By: #### L IPNF ####[facility] LABCLIA [id number] [place] [address] [place] T CHOL/HDL RATIO NF 5.04 mg/dL Normal <5.10 [facility] Comment on above: Order Comment: Speci men Type: BLOOD SPECIMENOrdering Facility: [facility] Address: [address] [place] [address] Performed By: #### L IPNF ####[facility] LABCLIA [id number] [place] [address] [place] TRIGLYCERIDES, NF 262 mg/dL High <150 [facility] Comment on above: Order Comment: Speci men Type: BLOOD SPECIMENOrdering Facility: [facility] Address: [address] [place] [address] Result Comment: <150 mg/dL, Normal 150-199 mg/dL, Borderline high 200-499 mg/dL, High >499 mg/dL, Very high Performed By: #### L IPNF ####[facility] LABCLIA [id number] [place] [address] [place] VLDL CHOLESTEROL, NF 52 mg/dL High <30 [facility] Comment on above: Order Comment: Speci men Type: BLOOD SPECIMENOrdering Facility: [facility] Address: [address] [place] [address] Performed By: #### L IPNF ####[facility] LABCLIA [id number] [place] [address] [place] PSA/PROSTATE SPECIFIC ANTIGE N SCREENINGon 07-30-2024 Prostate specific Ag [Mass/Vol] 0.62 ng/mL Normal <2.60 [facility] Comment on above: Order Comment: Speci men Type: BLOOD SPECIMENOrdering Facility: [facility] Address: [address] [place] [address] Result Comment: Jonathan jones PSA test methodology used is the Electrochemiluminescence Immunoassay by [employer]. Total PSA values by differing methodologies cannot be interchanged. Performed By: #### P SAS1 ####[facility] LABIA [id number] [place] [address] [place] XR CHEST 2V [...] and soft tissues: Unremarkable. IMPRESSION: As above Supervisor Pipelines: PSCB Transcribe Date/Time: Jul 30 2024 2:36P Dictated by : CAROLIN PARKER MD This examination was interpreted and the report reviewed and electronically signed by: CAROLIN PARKER MD on Jul 30 2024 2:43PM EST [id number] Normal [facility] XR Chest PA and Lateralon IMPRESSION: As above Supervisor Pipelines: PSCB Transcribe Date/Time: Jul 30 2024 2:36P [...] soft tissues: Unremarkable. DIVISION OF RADIOLOGY Provider, [facility]agin g [place] - 07/30/2024 * * *Final Report* * [...] soft tissues: Unremarkable. IMPRESSION IMPRESSION: As above Supervisor Pipelines: PSCB Transcribe Date/Time: Jul 30 2024 2:36P Dictated by : CAROLIN PARKER MD This examination was interpreted and the report reviewed and electronically signed by: CAROLIN PARKER MD on Jul 30 2024 2:43PM EST [facility] Radiology Study observation (narrative) [facility] XR Chest PA and LateralOrder ed By: [facility] Provider on 07-30-2024 [facility] Culture, Blood (WB)on 2024 CUB Blood cultures x2, f rom two different sites No growth in 5 days. Normal [facility] Comment on above: Performed By: #### M 200.1000 #### [facility] Laboratory [facility] [place], [address] Respiratory Cultureon 2024 RESPC Staphylococcus aureu s [...] S Vancomycin Islt ALL 1 S Normal [facility] Comment on above: Performed By: #### M 100.2400, #### [facility] [address] [place], [address] Gram Stainon 07-23-2024 GS Acceptable Specimen? Yes (<25 Epithelial cells per/lpf) Gram Stain 1+ Epithelial cells 1+ Gram positive cocci No White Blood Cells 2+ Gram variable elvin Normal [facility] Comment on above: Performed By: #### M 100.240, #### [facility] [address] [place], [address] Basic Metabolic Profile (BMP )on 07-22-2024 BUN/CRE 27.6 RATIO High 04-21 [facility] Comment on above: Performed By: #### M 100.2400, #### [facility] [address] [place], [address] CA,Total 9.3 mg/dL Normal 8.5-10.1 [facility] Comment on above: Performed By: #### M 100.240, #### [facility] [address] [place], [address] Chloride [Moles/Vol] 103 mmol/L Normal 98-107 [facility] Comment on above: Performed By: #### M 100.2400, #### [facility] [address] [place], [address] CO2 [Moles/Vol] 32.0 mmol/L Normal 21.0-32.0 [facility] Comment on above: Performed By: #### M 100.2400, #### [facility] [address] [place], [address] Creatinine [Mass/Vol] 0.69 mg/dL Low 0.70-1.30 [facility] Comment on above: Result Comment: The validity of the calculated GFR GFRAA in patients over 70 years has not been determined. Clinical correlation is essential. Performed By: #### M 100.2400, .1999 #### [facility] [address] [place], [address] ECRCL 96.21 ml/min Normal [facility] Comment on above: Performed By: #### M 100.2400, #### [facility] [address] [place], [address] EST GFR - AA 153 mL/min Normal >60 [facility] Comment on above: Result Comment: Afri can Guyanese GFR Calc Performed By: #### M 100.2400, .1999 #### [facility] [address] [place], [address] GAP 2 Low 5-15 [facility] Comment on above: Performed By: #### M 100.2400, #### [facility] [address] [place], [address] GFR/1.73 sq M.predicted among non-blacks MDRD (S/P/Bld) [Vol rate/Area] 126 mL/min/{1.73_m2} Normal >60 [facility] Comment on above: Result Comment: Non- GFR Calc Performed By: #### M 100.2400, .1999 #### [facility] [address] [place], [address] Glucose [Mass/Vol] 154 mg/dL High 74-106 [facility] Comment on above: Result Comment: Fast ing Glucose result greater than or equal to 126 mg/dL suggests DIABETES MELLITUS per A.D.A. criteria. Performed By: #### M 100.2400, #### [facility] [address] [place], [address] Potassium [Moles/Vol] 4.4 mmol/L Normal 3.5-5.1 [facility] Comment on above: Performed By: #### M 100.2400, #### [facility] [address] [place], [address] Sodium [Moles/Vol] 137 mmol/L Normal 136-145 [facility] Comment on above: Performed By: #### M 100.2400, #### [facility] [address] [place], [address] Urea nitrogen [Mass/Vol] 19 mg/dL High 7-18 [facility] Comment on above: Performed By: #### M 100.2400, #### [facility] [address] [place], [address] CBC W/Diff, Automatedon 01-2 0-2025 Absolute Lymph 1.06 X10 3/uL Normal 0.83-4.51 [facility] Comment on above: Performed By: #### L 100.0100, L500.2500 #### [facility] [address] [place], [address] Absolute Neut 16.7 X10 3/uL High 2.0-7.7 [facility] Comment on above: Performed By: #### L 100.0100, L500.2500 #### [facility] [address] [place], [address] Basophils/100 WBC (Bld) 0.1 % Normal 0-1 [facility] Comment on above: Performed By: #### L 100.0100, L500.2500 #### [facility] [address] [place], [address] Eosinophils/100 WBC (Bld) 0.0 % Normal 0-5 [facility] Comment on above: Performed By: #### L 100.0100, L500.2500 #### [facility] [address] [place], [address] Erythrocyte distribution width (RBC) [Ratio] 12.3 % Normal 11.6-14.6 [facility] Comment on above: Performed By: #### L 100.0100, L500.2500 #### [facility] [address] [place], [address] Hematocrit (Bld) [Volume fraction] 37.4 % Low 40-54 [facility] Comment on above: Performed By: #### L 100.0100, L500.2500 #### [facility] [address] [place], [address] Hemoglobin (Bld) [Mass/Vol] 12.3 g/dL Low 13.0-16.5 [facility] Comment on above: Performed By: #### L 100.0100, L500.2500 #### [facility] [address] [place], [address] IG% 0.700 Normal 0.0-0.9 [facility] Comment on above: Result Comment: IG% - Immature Granulocytes (promyelocytes, myelocytes and metamyelocytes) > 1% indicates that a LEFT SHIFT is Present. Performed By: #### L 100.0100, L500.2500 #### [facility] [address] [place], [address] Lymphocytes/100 WBC (Bld) 5.6 % Low 19-41 [facility] Comment on above: Performed By: #### L 100.0100, L500.2500 #### [facility] [address] [place], [address] MCH (RBC) [Entitic mass] 31.1 pg Normal 27.0-32.0 [facility] Comment on above: Performed By: #### L 100.0100, L500.2500 #### [facility] [address] [place], [address] MCHC (RBC) [Mass/Vol] 32.9 g/dL Normal 32-36 [facility] Comment on above: Performed By: #### L 100.0100, L500.2500 #### [facility] [address] [place], [address] MCV (RBC) [Entitic vol] 94.7 fL High 80-94 [facility] Comment on above: Performed By: #### L 100.0100, L500.2500 #### [facility] [address] [place], [address] Monocytes/100 WBC (Bld) 4.5 % Normal 0-10 [facility] Comment on above: Performed By: #### L 100.0100, L500.2500 #### [facility] [address] [place], [address] Neutrophils/100 WBC (Bld) 89.1 % High 47-70 [facility] Comment on above: Performed By: #### L 100.0100, L500.2500 #### [facility] [address] [place], [address] Nucleated RBC (Bld) [#/Vol] 0 10*3/uL Normal 0-5 [facility] Comment on above: Performed By: #### L 100.0100, L500.2500 #### [facility] [address] [place], [address] Platelet mean volume (Bld) [Entitic vol] 8.7 fL Normal 6.2-12.0 [facility] Comment on above: Performed By: #### L 100.0100, L500.2500 #### [facility] [address] [place], [address] Platelets (Bld) [#/Vol] 305 10*3/uL Normal 150-450 [facility] Comment on above: Performed By: #### L 100.0100, L500.2500 #### [facility] [address] [place], [address] RBC (Bld) [#/Vol] 3.95 10*6/uL Low 4.6-6.2 [facility] Comment on above: Performed By: #### L 100.0100, L500.2500 #### [facility] [address] [place], [address] RDW SD 42.8 fl Normal 35.1-43.9 [facility] Comment on above: Performed By: #### L 100.0100, L500.2500 #### [facility] [address] [place], [address] WBC (Bld) [#/Vol] 18.8 10*3/uL High 4.4-11.0 [facility] Comment on above: Performed By: #### L 100.0100, L500.2500 #### [facility] [address] [place], [address] Discharge Instructionon 07-04 Discharge Instruction [facility] Medical Records Department [address] [place] [address] Instructions for Home/Discharge Instructions 07/22/24 0940 MR#: [id number] Acct: [id number] Name: KARLI DUKE Rep #: [id number] : 1965 58 From: Colton Gandhi MD [...] Instructions / Restrictions: Follow-up with her own program lead Dr. Millie Sánchez in 2 weeks Discharge [...] 1 EACH tablet 1 ea PO DAILY bqdlilxemsx-mgxxjensl-qqdp nter 1 EACH blister with device 1 ea [...] can be placed): Home, Self Care 07/22/24 4988 Colton Gandhi MD CC: Dr. Alberto Avelar MD Signed Normal [facility] Basic Metabolic Profile (BMP )on 07-21-2024 BUN/CRE 19.4 RATIO Normal 10-20 [facility] Comment on above: Performed By: #### M 100.240, #### [facility] [address] [place], [address] CA,Total 9.4 mg/dL Normal 8.5-10.1 [facility] Comment on above: Performed By: #### M 100.2399, #### [facility] [address] [place], [address] Chloride [Moles/Vol] 104 mmol/L Normal 98-107 [facility] Comment on above: Performed By: #### M 100.240, #### [facility] [address] [place], [address] CO2 [Moles/Vol] 28.0 mmol/L Normal 21.0-32.0 [facility] Comment on above: Performed By: #### M 100.2400, #### [facility] [address] [place], [address] Creatinine [Mass/Vol] 0.67 mg/dL Low 0.70-1.30 [facility] Comment on above: Result Comment: The validity of the calculated GFR GFRAA in patients over 70 years has not been determined. Clinical correlation is essential. Performed By: #### M 100.2400, #### [facility] [address] [place], [address] ECRCL 99.08 ml/min Normal [facility] Comment on above: Performed By: #### M 100.2400, #### [facility] [address] [place], [address] EST GFR - AA 158 mL/min Normal >60 [facility] Comment on above: Result Comment: Afri can Guyanese GFR Calc Performed By: #### M 100.2400, #### [facility] [address] [place], [address] GAP 4 Low 5-15 [facility] Comment on above: Performed By: #### M 100.240, #### [facility] [address] [place], [address] GFR/1.73 sq M.predicted among non-blacks MDRD (S/P/Bld) [Vol rate/Area] 130 mL/min/{1.73_m2} Normal >60 [facility] Comment on above: Result Comment: Non- GFR Calc Performed By: #### M .240, #### [facility] [address] [place], [address] Glucose [Mass/Vol] 168 mg/dL High 74-106 [facility] Comment on above: Result Comment: Fast ing Glucose result greater than or equal to 126 mg/dL suggests DIABETES MELLITUS per A.D.A. criteria. Performed By: #### M 100.240, #### [facility] [address] [place], [address] Potassium [Moles/Vol] 4.2 mmol/L Normal 3.5-5.1 [facility] Comment on above: Performed By: #### M 100.2400, #### [facility] [address] [place], [address] Sodium [Moles/Vol] 136 mmol/L Normal 136-145 [facility] Comment on above: Performed By: #### M 100.2400, #### [facility] [address] [place], [address] Urea nitrogen [Mass/Vol] 13 mg/dL Normal 7-18 [facility] Comment on above: Performed By: #### M 100.2400, #### [facility] [address] [place], [address] CBC W/Diff, Automatedon 07-03 Absolute Lymph 0.83 X10 3/uL Normal 0.83-4.51 [facility] Comment on above: Performed By: #### M 100.2400, #### [facility] [address] [place], [address] Absolute Neut 15.4 X10 3/uL High 2.0-7.7 [facility] Comment on above: Performed By: #### M 100.240, #### [facility] [address] [place], [address] Basophils/100 WBC (Bld) 0.1 % Normal 0-1 [facility] Comment on above: Performed By: #### M 100.2400, #### [facility] [address] [place], [address] Eosinophils/100 WBC (Bld) 0.0 % Normal 0-5 [facility] Comment on above: Performed By: #### M 100.240, #### [facility] [address] [place], [address] Erythrocyte distribution width (RBC) [Ratio] 12.2 % Normal 11.6-14.6 [facility] Comment on above: Performed By: #### M 100.2400, #### [facility] [address] [place], [address] Hematocrit (Bld) [Volume fraction] 39.6 % Low 40-54 [facility] Comment on above: Performed By: #### M 100.2400, #### [facility] [address] [place], [address] Hemoglobin (Bld) [Mass/Vol] 13.4 g/dL Normal 13.0-16.5 [facility] Comment on above: Performed By: #### M 100.240, #### [facility] [address] [place], [address] IG% 0.500 Normal 0.0-0.9 [facility] Comment on above: Result Comment: IG% - Immature Granulocytes (promyelocytes, myelocytes and metamyelocytes) > 1% indicates that a LEFT SHIFT is Present. Performed By: #### M 100.2400, #### [facility] [address] [place], [address] Lymphocytes/100 WBC (Bld) 4.9 % Low 19-41 [facility] Comment on above: Performed By: #### M 100.240, #### [facility] [address] [place], [address] MCH (RBC) [Entitic mass] 31.5 pg Normal 27.0-32.0 [facility] Comment on above: Performed By: #### M 100.240, #### [facility] [address] [place], [address] MCHC (RBC) [Mass/Vol] 33.8 g/dL Normal 32-36 [facility] Comment on above: Performed By: #### M 100.2400, #### [facility] [address] [place], [address] MCV (RBC) [Entitic vol] 93.0 fL Normal 80-94 [facility] Comment on above: Performed By: #### M 100.240, #### [facility] [address] [place], [address] Monocytes/100 WBC (Bld) 2.6 % Normal 0-10 [facility] Comment on above: Performed By: #### M 100.2400, #### [facility] [address] [place], [address] Neutrophils/100 WBC (Bld) 91.9 % High 47-70 [facility] Comment on above: Performed By: #### M 100.240, #### [facility] [address] [place], [address] Nucleated RBC (Bld) [#/Vol] 0 10*3/uL Normal 0-5 [facility] Comment on above: Performed By: #### M , #### [facility] [address] [place], [address] Platelet mean volume (Bld) [Entitic vol] 9.0 fL Normal 6.2-12.0 [facility] Comment on above: Performed By: #### M , #### [facility] [address] [place], [address] Platelets (Bld) [#/Vol] 294 10*3/uL Normal 150-450 [facility] Comment on above: Performed By: #### M .2399, #### [facility] [address] [place], [address] RBC (Bld) [#/Vol] 4.26 10*6/uL Low 4.6-6.2 [facility] Comment on above: Performed By: #### M 100.240, #### [facility] [address] [place], [address] RDW SD 41.7 fl Normal 35.1-43.9 [facility] Comment on above: Performed By: #### M 100.2400, M100.2000 #### [facility] [address] [place], [address] WBC (Bld) [#/Vol] 16.8 10*3/uL High 4.4-11.0 [facility] Comment on above: Performed By: #### M 100.2400, M100.1999 #### [facility] [address] [place], [address] Legionella Antigen Urineon 0 07-21-2024 LEGU Comments: Only Recom mended for severe cases of pneumonia Only Recommended for severe cases of pneumonia URINE, CLEAN CATCH Legionella Antigen result interpretation: L pneumo Ag Ur Ql Negative Presumptive negative for Legionella pneumophila serogroup 1 antigen in urine, suggesting no recent or current infection. Legionella Ag, Urine Negative (See interpretation below) Normal [facility] Comment on above: Performed By: #### M 100.2400, M100.1999 #### [facility] [address] [facility] [address] [place], [address] M100.678on 07-21-2024 M100.678 Pending SARS-CoV-2 (COVID 19) Negative INFLUENZA A Negative INFLUENZA B Negative RSV PCR Negative Normal [facility] Comment on above: Performed By: #### M 100.678 #### [facility] [address] [facility] [place] [place], [address] M8200.1000on 07-21-2024 M8200.1000 Normal Reference Ran ge = Negative MRSA DNA Nose Ql MAHESH+probe GeneXpert Instrument, PCR method MRSA PCR MRSA NEGATIVE Normal [facility] Comment on above: Performed By: #### M 8200.1000 #### [facility] [address] [facility] [place], [address] Strep pneumoniae Antig(UR,CS F)on 07-21-2024 STPAG Comments: [...] Test Negative URINE (See interpretation below) Normal [facility] Comment on above: Performed By: #### M 100.2400, M100.2000 #### [facility] [address] [facility] [place], [address] 12 Lead EKGon 07-20-2024 12 Lead EKG [facility] [address] [place] [address] 12 Lead EKG 07/20/24 0951 MR#: [id number] Acct: [id number] Name: KARLI DUKE Rep #: [id number] : 1965 58 From: Isaac Barrera MD Attending Dr: Dr. Colton Gandhi MD Status: ADM IN Ordering Dr: Willard Burr DO Date: 07/20/24 Location: [facility] Sex: M C Admitted: 07/20/24 Test Reason : SOB Blood Pressure : */* mmHG Vent. Rate : 104 BPM Atrial Rate : 104 BPM P-R Int : 134 ms QRS Dur : 78 ms QT Int : 324 ms P-R-T Axes : 88 71 73 degrees QTcB Int : 426 ms Sinus tachycardia Otherwise normal ECG Confirmed by ROSANNA BARRERA MD ([id number]), LEVAR Colón ([id number]) on 07/22/2024 10:44:05 AM Also confirmed by ROSANNA BARRERA MD ([id number]), LEVAR Colón ([id number]) on 07/22/2024 10:44:18 AM Referred By: DAWSON Confirmed By: ROSANNA BARRERA MD 07/22/24 1044 Date Isaac Barrera MD CC: Dr. Willard Burr DO; Dr. Alberto Avelar MD; Dr. Colton Gandhi MD Signed Normal [facility] BNP,B-Type NATRIURETIC PEPTI Elizabeth 07-20-2024 Natriuretic peptide B (Bld) [Mass/Vol] 12.6 pg/mL Normal 0-100 [facility] Comment on above: Performed By: #### M 100.2400, M100.2000 #### [facility] [address] [place], [address] Basic Metabolic Profile (BMP )on 07-20-2024 BUN/CRE 11.8 RATIO Normal 10-20 [facility] Comment on above: Order Comment: 'TROP ' Serial specimen #1, #2 or #3: 1 Performed By: #### L 500.3400, L500.2500, L501.4020 #### [facility] [address] [place], [address] CA,Total 9.7 mg/dL Normal 8.5-10.1 [facility] Comment on above: Order Comment: 'TROP ' Serial specimen #1, #2 or #3: 1 Performed By: #### L 500.3400, L500.2500, L501.4020 #### [facility] [address] [place], [address] Chloride [Moles/Vol] 100 mmol/L Normal 98-107 [facility] Comment on above: Order Comment: 'TROP ' Serial specimen #1, #2 or #3: 1 Performed By: #### L 500.3400, L500.2500, L501.4020 #### [facility] [address] [place], [address] CO2 [Moles/Vol] 30.0 mmol/L Normal 21.0-32.0 [facility] Comment on above: Order Comment: 'TROP ' Serial specimen #1, #2 or #3: 1 Performed By: #### L 500.3400, L500.2500, L501.4020 #### [facility] [address] [place], [address] Creatinine [Mass/Vol] 0.85 mg/dL Normal 0.70-1.30 [facility] Comment on above: Order Comment: 'TROP ' Serial specimen #1, #2 or #3: 1 Result Comment: The validity of the calculated GFR GFRAA in patients over 70 years has not been determined. Clinical correlation is essential. Performed By: #### L 500.3400, L500.2500, L501.4020 #### [facility] [address] [place], [address] ECRCL 85.56 ml/min Normal [facility] Comment on above: Order Comment: 'TROP ' Serial specimen #1, #2 or #3: 1 Performed By: #### L 500.3400, L500.2500, L501.4020 #### [facility] [address] [place], [address] EST GFR - AA 120 mL/min Normal >60 [facility] Comment on above: Order Comment: 'TROP ' Serial specimen #1, #2 or #3: 1 Result Comment: Afri can Guyanese GFR Calc Performed By: #### L 500.3400, L500.2500, L501.4020 #### [facility] [address] [place], [address] GAP 6 Normal 5-15 [facility] Comment on above: Order Comment: 'TROP ' Serial specimen #1, #2 or #3: 1 Performed By: #### L 500.3400, L500.2500, L501.4020 #### [facility] [address] [place], [address] GFR/1.73 sq M.predicted among non-blacks MDRD (S/P/Bld) [Vol rate/Area] 99 mL/min/{1.73_m2} Normal >60 [facility] Comment on above: Order Comment: 'TROP ' Serial specimen #1, #2 or #3: 1 Result Comment: Non- GFR Calc Performed By: #### L 500.3400, L500.2500, L501.4020 #### [facility] [address] [place], [address] Glucose [Mass/Vol] 148 mg/dL High 74-106 [facility] Comment on above: Order Comment: 'TROP ' Serial specimen #1, #2 or #3: 1 Result Comment: Fast ing Glucose result greater than or equal to 126 mg/dL suggests DIABETES MELLITUS per A.D.A. criteria. Performed By: #### L 500.3400, L500.2500, L501.4020 #### [facility] [address] [place], [address] Potassium [Moles/Vol] 4.8 mmol/L Normal 3.5-5.1 [facility] Comment on above: Order Comment: 'TROP ' Serial specimen #1, #2 or #3: 1 Result Comment: Mode rate Hemolysis, Result may be falsely increased. Performed By: #### L 500.3400, L500.2500, L501.4020 #### [facility] [address] [place], [address] Sodium [Moles/Vol] 136 mmol/L Normal 136-145 [facility] Comment on above: Order Comment: 'TROP ' Serial specimen #1, #2 or #3: 1 Performed By: #### L 500.3400, L500.2500, L501.4020 #### [facility] [address] [place], [address] Urea nitrogen [Mass/Vol] 10 mg/dL Normal 7-18 [facility] Comment on above: Order Comment: 'TROP ' Serial specimen #1, #2 or #3: 1 Performed By: #### L 500.3400, L500.2500, L501.4020 #### [facility] [address] [place], [address] Bedside Glucoseon 01-18-2025 FINGERSTICK GLU 137 mg/dL High 74-106 [facility] Comment on above: Result Comment: RELL EL OF PATIENT CARE PER NURSING PROTOCOL Performed By: #### M 100.240, #### [facility] [address] [place], [address] CBC W/Diff, Automatedon 07-03 Absolute Lymph 0.76 X10 3/uL Low 0.83-4.51 [facility] Comment on above: Performed By: #### M 100.240, #### [facility] [address] [place], [address] Absolute Neut 17.7 X10 3/uL High 2.0-7.7 [facility] Comment on above: Performed By: #### M 100.2399, #### [facility] [address] [place], [address] Basophils/100 WBC (Bld) 0.4 % Normal 0-1 [facility] Comment on above: Performed By: #### M 100.240, #### [facility] [address] [place], [address] Eosinophils/100 WBC (Bld) 0.1 % Normal 0-5 [facility] Comment on above: Performed By: #### M 100.240, #### [facility] [address] [place], [address] Erythrocyte distribution width (RBC) [Ratio] 12.1 % Normal 11.6-14.6 [facility] Comment on above: Performed By: #### M 100.240, #### [facility] [address] [place], [address] Hematocrit (Bld) [Volume fraction] 46.5 % Normal 40-54 [facility] Comment on above: Performed By: #### M 100.240, #### [facility] [address] [place], [address] Hemoglobin (Bld) [Mass/Vol] 15.8 g/dL Normal 13.0-16.5 [facility] Comment on above: Performed By: #### M 100.2400, #### [facility] [address] [place], [address] IG% 0.400 Normal 0.0-0.9 [facility] Comment on above: Result Comment: IG% - Immature Granulocytes (promyelocytes, myelocytes and metamyelocytes) > 1% indicates that a LEFT SHIFT is Present. Performed By: #### M 100.240, #### [facility] [address] [place], [address] Lymphocytes/100 WBC (Bld) 3.8 % Low 19-41 [facility] Comment on above: Performed By: #### M 100.240, #### [facility] [address] [place], [address] MCH (RBC) [Entitic mass] 31.3 pg Normal 27.0-32.0 [facility] Comment on above: Performed By: #### M 100.240, #### [facility] [address] [place], [address] MCHC (RBC) [Mass/Vol] 34.0 g/dL Normal 32-36 [facility] Comment on above: Performed By: #### M 100.2400, #### [facility] [address] [place], [address] MCV (RBC) [Entitic vol] 92.3 fL Normal 80-94 [facility] Comment on above: Performed By: #### M 100.2400, #### [facility] [address] [place], [address] Monocytes/100 WBC (Bld) 6.9 % Normal 0-10 [facility] Comment on above: Performed By: #### M 100.240, #### [facility] [address] [place], [address] Neutrophils/100 WBC (Bld) 88.4 % High 47-70 [facility] Comment on above: Performed By: #### M 100.240, #### [facility] [address] [place], [address] Nucleated RBC (Bld) [#/Vol] 0 10*3/uL Normal 0-5 [facility] Comment on above: Performed By: #### M 100.240, #### [facility] [address] [place], [address] Platelet mean volume (Bld) [Entitic vol] 8.9 fL Normal 6.2-12.0 [facility] Comment on above: Performed By: #### M 100.2399, #### [facility] [address] [place], [address] Platelets (Bld) [#/Vol] 319 10*3/uL Normal 150-450 [facility] Comment on above: Performed By: #### M 100.240, #### [facility] [address] [place], [address] RBC (Bld) [#/Vol] 5.04 10*6/uL Normal 4.6-6.2 [facility] Comment on above: Performed By: #### M 100.240, #### [facility] [address] [place], [address] RDW SD 41.3 fl Normal 35.1-43.9 [facility] Comment on above: Performed By: #### M 100.2400, M100.1999 #### [facility] [address] [place], [address] WBC (Bld) [#/Vol] 20.1 10*3/uL High 4.4-11.0 [facility] Comment on above: Performed By: #### M 100.2400, M100.1999 #### [facility] [address] [place], [address] CTA Chest W/WO Contraston CTA Chest W/WO Contrast [facility] Imaging Services [address] [facility] [address] [place], [place] [address] CTA Chest W/WO Contrast MR#: [id number] Acct: [id number] Name: KARLI DUKE Rep #: [id number] : 1965 M 58 From: Chris Long MD PCP: Dr. Alberto Avelar MD Status: [facility] Study: CTA Chest W/WO Contrast Date of Exam: 07/20/24 Exam# [id number] Ordering Dr: Willard Burr DO [id number] STUDY: CTA CHEST REASON FOR EXAM: Male, [...] Willard Burr DO; Dr. Alberto Avelar MD Supervisor Pipelines: Signed Normal [facility] Chest 1 View (Portable)on Chest 1 View (Portable) [facility] Imaging Services [address] [place] [id number] Chest 1 View (Portable) MR#: [id number] Acct: [id number] Name: KARLI DUKE Rep #: [id number] : 1965 M 58 From: Chris Long MD PCP: Dr. Alberto Avelar MD Status: [facility] ER Study: Chest 1 View (Portable) Date of Exam: 07/20/24 Exam# [id number] Ordering Dr: Willard Burr DO [id number] STUDY: X-RAY CHEST REASON FOR EXAM: Male, [...] 10:51 EST Reading Location ID and State: [address] [place] [address] , Service support , CC: Dr. Willard Burr DO; Dr. Alberto Avelar MD Supervisor Pipelines: Signed Normal [facility] Emergency Department Summary on 07-20-2024 Emergency Department Summary [facility] Medical Records Department [address] [place] [address] Emergency Department Summary 07/20/24 MR#: [id number] Acct: [id number] Name: KARLI DUKE Rep #: [id number] : 1965 58 From: Willadr Burr DO PCP: Dr. Alberto Avelar MD Status:ADM IN [facility] HPI History of Present Illness Chief Complaint: [...] BiPAP before and does not like it. [facility] Medical History Anxiety COPD (chronic obstructive pulmonary [...] 08/25/19 07/20/24 10:00 History 1 ea mv-min-vit S-xbmx-emubkc nereida-herb 1 ea PO DAILY supplement 08/25/19 [...] Oxygen Natty (more content not included)... Normal [facility] H AND P Exam - Hospitaliston 07-20-2024 H&P Exam - Hospitalist [facility] Medical Records Department [address] [place] [address] H P Exam - Hospitalist 07/20/24 1329 MR#: [id number] Acct: [id number] Name: KARLI DUKE Rep #: [id number] : 1965 58 From: Colton Gandhi MD [...] PCP about 4 weeks ago. He follows program lead Dr. Millie sánchez, [facility]. He states for the last 4 weeks [...] reviewed shows mild tachypnea and sinus tachycardia. [facility] Medical History Anxiety COPD (chronic obstructive [...] PO DAILY supplement 08/25/19 Unknown History mv-min-vit K-bylh-iagivt nereida-herb 1 ea PO DAILY supplement 08/25/19 [...] H 162 (more content not included)... Normal [facility] L501.4020on 07-20-2024 TROPONIN-I HS 10 pg/mL Normal 3.0-78.0 [facility] Comment on above: Order Comment: 'TROP ' Serial specimen #1, #2 or #3: 1 Result Comment: Valarie lguo Note: New Test Units and Gender Specific Reference Ranges. For more information see Policy Stat Procedure [place] High Sensitivity Troponin (TNIH) and attachments. Performed By: #### L 500.3400, L500.2500, L501.4020 #### [facility] [address] [place], [address] Lactic Acidon 07-20-2024 Lactate [Moles/Vol] 0.9 mmol/L Normal 0.4-1.9 [facility] Comment on above: Order Comment: Y Performed By: #### M 100.2400, M100.2000 #### [facility] [address] [place], [address] Liver Profileon 07-20-2024 Albumin [Mass/Vol] 3.5 g/dL Normal 3.2-5.0 [facility] Comment on above: Order Comment: 'TROP ' Serial specimen #1, #2 or #3: 1 Performed By: #### L 500.3400, L500.2500, L501.4020 #### [facility] [address] [place], [address] ALK P 92 U/L Normal 45-117 [facility] Comment on above: Order Comment: 'TROP ' Serial specimen #1, #2 or #3: 1 Performed By: #### L 500.3400, L500.2500, L501.4020 #### [facility] [address] [place], [address] ALT [Catalytic activity/Vol] 62 U/L High 16-61 [facility] Comment on above: Order Comment: 'TROP ' Serial specimen #1, #2 or #3: 1 Performed By: #### L 500.3400, L500.2500, L501.4020 #### [facility] [address] [place], [address] AST [Catalytic activity/Vol] 61 U/L High 15-37 [facility] Comment on above: Order Comment: 'TROP ' Serial specimen #1, #2 or #3: 1 Result Comment: Mode rate Hemolysis, Result may be falsely increased. Performed By: #### L 500.3400, L500.2500, L501.4020 #### [facility] [address] [place], [address] Bilirubin [Mass/Vol] 0.80 mg/dL Normal 0.20-1.00 [facility] Comment on above: Order Comment: 'TROP ' Serial specimen #1, #2 or #3: 1 Result Comment: For patients on eltrombopag therapy, use of Dimension [place] TBIL is not recommended. Performed By: #### L 500.3400, L500.2500, L501.4020 #### [facility] [address] [place], [address] Bilirubin.direct [Mass/Vol] 0.17 mg/dL Normal 0.00-0.30 [facility] Comment on above: Order Comment: 'TROP ' Serial specimen #1, #2 or #3: 1 Performed By: #### L 500.3400, L500.2500, L501.4020 #### [facility] [address] [place], [address] Globulin (S) [Mass/Vol] 4.6 g/dL High 2.2-4.2 [facility] Comment on above: Order Comment: 'TROP ' Serial specimen #1, #2 or #3: 1 Performed By: #### L 500.3400, L500.2500, L501.4020 #### [facility] [address] [place], [place], [address] T PROT 8.1 g/dL Normal 6.4-8.2 [facility] Comment on above: Order Comment: 'TROP ' Serial specimen #1, #2 or #3: 1 Performed By: #### L 500.3400, L500.2500, L501.4020 #### [facility] [address] [place], [place], [address] [facility] -- KARLI DUKE ([id number]) 1965 M Date Time Provider Department 05/27/24 [...] as verified by skin testing VICODIN (HYDROCODONE-ACETAMINOPHE* 11/11/2010 1 - Mental Status Change Date Reviewed: 05/21/2024 Reviewed by: Nathalie Mojica APRN.STEEL RIGGER - Fully Assessed Reason for Visit: Results [95] Primary Visit Diagnosis:Lung nodules [R91.8] Order(s):CT CHEST WO KAIA [4797711] Order #: [id number] FUTURE Prescriptions as of 06/25/2024 - doxycycline [...] tablet by mouth daily at bedtime. - oytamlhkcac-dwqnsoqdp-kequ nter (TRELEGY ELLIPTA) 200-62.5-25 mcg inhalation powder Inhale [...] Encounter Status:Closed by NATHALIE MOJICA on 05/27/24 [facility] CNOVon 05-20-2024 CNOV Office Visit (PULMWS ) -- KARLI DUKE ([id number]) 1965 M Date Time Provider Department 05/20/24 11:30 AM NATHALIE MOJICA PULMWS During your visit today, we recorded the following information about you: Nathalie Mojica APRN.STEEL RIGGER 05/21/2024 8:26 AM Signed [facility] INCIDENTAL LUNG NODULE PROGRAM (Follow Up) [...] classification (HCC) Continue close follow up with program lead Dr. Silva Sánchez. Follow Up Follow Up Diagnosis: Lung Nodule Recommendation: CT Scan Follow up Date: 10/31/2024 Follow-Up Scheduled: No Pulmonary Follow-Up Type: Lung Nodule Surveillance Enrolled in Lung Nodule program: Yes Lung Nodule Program Location: [facility] Please enter a follow up date: 10/2024 -- History of Present Illness Karli Duke is [...] 73.9 kg (163 lb)] Modified Medical Research [place] Dyspnea Scale (MMRC) I am too breathless [...] DATE OF EXAM: Apr 24 2023 12:10PM [facility] 0541 - CT CHEST WO IVCON / [...] are norm (more content not included)... Normal [facility] CT CHEST WO IVCONon 05-20-20 CT CHEST WO IVCON * * *Final Report* * * DATE OF EXAM: May 20 2024 11:37AM [facility] 0541 - CT CHEST WO IVCON / [...] few additional stable scattered pulmonary nodules with manufacturers service representative measurements as follows. Stable 4 mm [...] right upper lobe groundglass opacity appear stable. Supervisor Pipelines: [facility] Transcribe Date/Time: May 22 2024 12:58P Dictated by : BIBI BOWER MD This examination was interpreted and the report reviewed and electronically signed by: BIBI BOWER MD on May 22 2024 1:04PM EST [id number] Normal [facility] CNOVon 02-29-2024 CNOV Office Visit (PULMWS ) -- SRIKANTHKARLI L ([id number]) 1965 M Date Time Provider Department 02/29/24 1:45 PM MILLIE SÁNCHEZ During your visit today, we recorded the following information about you: Pulse Respiration Blood pressure Weight 84/minute 22/minute 146/96 69.4 kg Yulisa Keith LPN 02/29/2024 1:18 PM Signed Intake information documented in the prior visit with ERICH Bassett today. Millie Sánchez MD 02/29/2024 5:09 PM Signed . [facility] Note Patient name: Karli Duke PCP: Alberto [...] DATE OF EXAM: Apr 24 2023 12:10PM [facility] 0541 - CT CHEST WO IVCON / [...] No date: COPD (chronic obstructive pulmonary disease) ([facility]) No date: Other and unspecified hyperlipidemia No date: SAH (subarachnoid hemorrhage) ([facility]) No date: Sleep apnea No date: Tobacco abuse Comment: Quit 2016. ALLERGIES Allergen Reactions Codeine Unknown Environmental [Othe* Other: See Comments Molds and grasses as verified by skin testing Vicodin [Hydrocodon* Mental Status Change vnzxoiwjgaq-dztiyauve-ejzc nter (TRELEGY ELLIPTA) 200-62.5-25 mcg inhalation powder Inhale [...] Comment: 1 (more content not included)... Normal [facility] OXIMETRY WITH AMBULATIONon 0 02-29-2024 Paul Martinez [...] February 29, 2024 TIME: 1:34 PM Comment: [facility] No Panel Informationon 08-29 [facility] SPIROMETRY BASELINE ONLYon 0 08-29-2023 DLCO (ml/min/mmHg) 9.66 ml/min/mmHg [facility] DLCO/VA (ml/min/mmHg/L) 2.28 ml/min/mmHg/L [facility] ERV BOX (L) 0.90 L [facility] UHQ12-84% PRE (L/S) 0.16 L/S [facility] FEV1 PRE (L) 0.57 L [facility] FEV1/FVC PRE (%) 26 % [facility] FRC Box (L) 5.73 L [facility] FVC PRE (L) 2.21 L [facility] IC BOX (L) 1.42 L [facility] PEF PRE (L/S) 2.40 L/S [facility] RV Box (L) 4.86 L [facility] RV/TLC Box (%) 68 % [facility] TLC Box (L) 7.16 L [facility] VA (L) 4.24 L [facility] VC (L) BOX 2.32 L [facility] CNPNon 05-01-2023 CNPN Telephone ([facility]) -- KARLI DUKE ([id number]) 1965 M Date Time Provider Department 05/01/23 NATHALIE MOJICA During your visit today, we recorded the following information about you: Nathalie Mojica APRN.CNP 05/01/2023 11:20 AM Signed Left message for [...] as verified by skin testing VICODIN (HYDROCODONE-ACETAMINOPHE* 11/11/2010 1 - Mental Status Change Date Reviewed: 04/11/2023 Reviewed by: Yulisa Keith LPN - Fully Assessed Reason for Visit: Results [95] Primary Visit Diagnosis:Lung nodules [R91.8] [id number] Order #: [id number] FUTURE Prescriptions as of 05/01/2023 - busPIRone [...] 1 mg tablet Take by mouth. - rxgdafpbquw-rrjpmqjlb-bivt nter (TRELEGY ELLIPTA) 200-62.5-25 mcg inhalation powder Inhale [...] Status:Closed by NATHALIE MOJICA on 05/01/23 Normal [facility] CT CHEST WO IVCONon 04-26-20 Radiology Result ACTIONABLE Abnormal [facility] CT CHEST WO IVCONon 03-16-20 [facility] Vital Signs Date Time Vital Sign Value Performing Clinician Facility 02-21-2025 20:27-0400 Body temperature 98.5 [degF] Dr. Alberto Avelar MD Work Phone: 9(228)457-1990[address] [place] [address] 02-21-2025 20:27-0400 Diastolic blood pressure 92 mm[Hg] Dr. Alberto Avelar MD Work Phone: 4(932)670-231629 [place] [address] 02-21-2025 20:27-0400 Heart rate 89 /min Dr. Alberto Avelar MD Work Phone: 2(991)166-862329 [place] [address] 02-21-2025 20:27-0400 Respiratory rate 25 /min Dr. Alberto Avelar MD Work Phone: 8(595)826-165929 [place] [address] 02-21-2025 20:27-0400 SaO2% (BldA) [Mass fraction] 97 % Dr. Alberto Avelar MD Work Phone: 0(253)019-100429 [place] [address] 02-21-2025 20:27-0400 Systolic blood pressure 138 mm[Hg] Dr. Alberto Avelar MD Work Phone: 4(278)283-948029 [place] [address] 02-21-2025 19:30-0400 Inhaled oxygen concentration 30 % Dr. Alberto Avelar MD Work Phone: 3(544)951-091829 [place] [address] 02-21-2025 18:00-0400 Inhaled oxygen flow rate 3 L/min Dr. Alberto Avelar MD Work Phone: 6(828)180-754829 [place] [address] 02-21-2025 16:27-0400 Body height 160.[address] Alberto Avelar MD Work Phone: 3(036)877-644829 [place] [address] 02-21-2025 16:27-0400 Body mass index (BMI) [Ratio] 24.3 kg/m2 Dr. Alberto Avelar MD Work Phone: 9(169)314-263929 [place] [address] 02-21-2025 16:27-0400 Body weight 62.[address] Alberto Avelar MD Work Phone: 2(288)598-198329 [place] [address] 08-22-2025 16:11-0400 Body temperature 98.49 [degF] Raven Swank [employer] COUNSELOR.STEEL RIGGER Work Phone: [facility] 02-21-2025 16:11-0400 Diastolic blood pressure 95 mm[Hg] Raven Swank AUTOMOBI[employer] TRAVEL [employer] COUNSELOR.STEEL RIGGER Work Phone: [facility] 02-21-2025 16:11-0400 Heart rate 102 /min Raven Swank AUTOMOBI[employer] COUNSELOR.STEEL RIGGER Work Phone: [facility] 02-21-2025 16:11-0400 Respiratory rate 28 /min Raven Swank AUTOM[employer]BI[employer] COUNSELOR.STEEL RIGGER Work Phone: [facility] 02-21-2025 16:11-0400 SaO2% (BldA) [Mass fraction] 91 % Raven Swank AUTOMOBI[employer] COUNSELOR.STEEL RIGGER Work Phone: [facility] Comment on above: 2 LMP NC 02-21-2025 16:11-0400 Systolic blood pressure 196 mm[Hg] Raven Swank AUTOM[employer] COUNSELOR.STEEL RIGGER Work Phone: [facility] 11-18-2024 11:07-0400 Heart rate 61 /min Nathalie [place] [employer] COUNSELOR.STEEL RIGGER Work Phone: [facility] 11-18-2024 11:07-0400 Respiratory rate 19 /min Nathalie [place] AUTOM[employer]BI[employer] COUNSELOR.STEEL RIGGER Work Phone: [facility] 11-18-2024 11:07-0400 SaO2% (BldA) [Mass fraction] 97 % Nathalie [place] [employer] COUNSELOR.STEEL RIGGER Work Phone: [facility] 08-01-2024 10:04-0500 Body mass index (BMI) [Ratio] 26.67 kg/m2 Alberto Avelar MD Work Phone: [facility] 08-01-2024 10:04-0500 Body weight 68.3 kg Alberto Avelar MD Work Phone: [facility] 08-01-2024 10:04-0500 Diastolic blood pressure 82 mm[Hg] Alberto Avelar MD Work Phone: [facility] 08-01-2024 10:04-0500 Heart rate 96 /min Alberto Avelar MD Work Phone: [facility] 08-01-2024 10:04-0500 Respiratory rate 20 /min Alberto Avelar MD Work Phone: [facility] 08-01-2024 10:04-0500 SaO2% (BldA) [Mass fraction] 94 % Alberto Avelar MD Work Phone: [facility] 08-01-2024 10:04-0500 Systolic blood pressure 150 mm[Hg] Alberto Avelar MD Work Phone: [facility] 07-30-2024 12:44-0500 Diastolic blood pressure 72 mm[Hg] Mily Click AUTOMOBI[employer] COUNSELOR.STEEL RIGGER Work Phone: [facility] 07-30-2024 12:44-0500 Heart rate 85 /min Mily Click AUTOMOBI[employer] TRA[employer]UB COUNSELOR.STEEL RIGGER Work Phone: [facility] 07-30-2024 12:44-0500 Respiratory rate 16 /min Mily Click [employer]BI[employer] COUNSELOR.STEEL RIGGER Work Phone: [facility] 07-30-2024 12:44-0500 SaO2% (BldA) [Mass fraction] 95 % Mily Click [employer]OBI[employer] TRAVEL [employer]UB COUNSELOR.STEEL RIGGER Work Phone: [facility] 07-30-2024 12:44-0500 Systolic blood pressure 122 mm[Hg] Mily Click [employer]BI[employer] TRA[employer]EL [employer]UB COUNSELOR.STEEL RIGGER Work Phone: [facility] 02-29-2024 13:32-0400 Body mass index (BMI) [Ratio] 27.1 kg/m2 Pulm Wstr Work Phone: [facility] 02-29-2024 13:32-0400 Body weight 69.4 kg Pulm Wstr Work Phone: [facility] 02-29-2024 13:32-0400 Heart rate 88 /min Pulm Wstr Work Phone: [facility] 02-29-2024 13:32-0400 Respiratory rate 13 /min Pulm Wstr Work Phone: [facility] 02-29-2024 13:32-0400 SaO2% (BldA) [Mass fraction] 93 % Pulm Wstr Work Phone: [facility] 02-29-2024 13:30-0400 Body mass index (BMI) [Ratio] 27.1 kg/m2 Millie Sánchez MD Work Phone: [facility] 02-29-2024 13:30-0400 Body weight 69.4 kg Millie Sánchez MD Work Phone: [facility] 02-29-2024 13:30-0400 Diastolic blood pressure 96 mm[Hg] Millie Sánchez MD Work Phone: [facility] 02-29-2024 13:30-0400 Heart rate 84 /min Millie Sánchez MD Work Phone: [facility] 02-29-2024 13:30-0400 Respiratory rate 22 /min Millie Sánchez MD Work Phone: [facility] 02-29-2024 13:30-0400 SaO2% (BldA) [Mass fraction] 97 % Millie Sánchez MD Work Phone: [facility] 02-29-2024 13:30-0400 Systolic blood pressure 146 mm[Hg] Millie Sánchez MD Work Phone: [facility] 08-29-2023 13:14-0500 Body height 160 cm Helen Newman PA-C Work Phone: [facility] 08-29-2023 13:14-0500 Body temperature 99.1 [degF] Helen Newman PA-C Work Phone: [facility] 08-29-2023 13:14-0500 Body weight 69.85 kg Helen Newman PA-C Work Phone: [facility] 08-29-2023 13:14-0500 Diastolic blood pressure 90 mm[Hg] Helen Newman PA-C Work Phone: [facility] 08-29-2023 13:14-0500 Heart rate 80 /min Helen Russ PA-C Work Phone: [facility] 08-29-2023 13:14-0500 Respiratory rate 14 /min Helen Russ PA-C Work Phone: [facility] 08-29-2023 13:14-0500 SaO2% (BldA) [Mass fraction] 95 % Helen Russ PA-C Work Phone: [facility] 08-29-2023 13:14-0500 Systolic blood pressure 138 mm[Hg] Helen Russ PA-C Work Phone: [facility] 08-29-2023 13:12-0500 Body height 160 cm Pulm Wstr Work Phone: [facility] 08-29-2023 13:12-0500 Body weight 69.85 kg Pulm Wstr Work Phone: [facility] 08-29-2023 13:12-0500 Heart rate 80 /min Pulm Wstr Work Phone: [facility] 08-29-2023 13:12-0500 Respiratory rate 14 /min Pulm Wstr Work Phone: [facility] 08-29-2023 13:12-0500 SaO2% (BldA) [Mass fraction] 95 % Pulm Wstr Work Phone: [facility] 06-14-2023 13:21-0500 Body weight 73.03 kg Helen Russ PA-C Work Phone: [facility] 06-14-2023 13:21-0500 Diastolic blood pressure 84 mm[Hg] Helen Russ PA-C Work Phone: [facility] 06-14-2023 13:21-0500 Heart rate 66 /min Helen Russ PA-C Work Phone: [facility] 06-14-2023 13:21-0500 Respiratory rate 15 /min Helen Russ PA-C Work Phone: [facility] 06-14-2023 13:21-0500 SaO2% (BldA) [Mass fraction] 99 % Helen Newman PA-C Work Phone: [facility] 06-14-2023 13:21-0500 Systolic blood pressure 132 mm[Hg] Helen Newman PA-C Work Phone: [facility] 03-14-2023 14:31-0400 Body weight 73.94 kg Millie Sánchez MD Work Phone: [facility] 03-14-2023 14:31-0400 Diastolic blood pressure 90 mm[Hg] Millie Sánchez MD Work Phone: [facility] 03-14-2023 14:31-0400 Heart rate 93 /min Millie Sánchez MD Work Phone: [facility] 03-14-2023 14:31-0400 SaO2% (BldA) [Mass fraction] 95 % Millie Sánchez MD Work Phone: [facility] 03-14-2023 14:31-0400 Systolic blood pressure 130 mm[Hg] Millie Sánchez MD Work Phone: [facility] 12-01-2022 13:46-0400 Body weight 75.16 kg Alberto Avelar MD Work Phone: [facility] 12-01-2022 13:46-0400 Diastolic blood pressure 80 mm[Hg] Alberto Avelar MD Work Phone: [facility] 12-01-2022 13:46-0400 Heart rate 84 /min Alberto Avelar MD Work Phone: [facility] 12-01-2022 13:46-0400 Respiratory rate 20 /min Alberto Avelar MD Work Phone: [facility] 12-01-2022 13:46-0400 SaO2% (BldA) [Mass fraction] 95 % Alberto Avelar MD Work Phone: [facility] 12-01-2022 13:46-0400 Systolic blood pressure 130 mm[Hg] Alberto Avelar MD Work Phone: [facility] 11-14-2022 13:00-0400 Body weight 74.84 kg Helen Newman PA-C Work Phone: [facility] 05-21-2022 14:00-0500 Body temperature 97.81 [degF] Nigel Nitin [employer]OM[employer]BI[employer] TRAVEL CLUB COUNSELOR.STEEL RIGGER Work Phone: [facility] 05-21-2022 14:00-0500 Body weight 73.94 kg Nigel Nitin AUTOMOBILE TRAVEL CLUB COUNSELOR.STEEL RIGGER Work Phone: [facility] 05-21-2022 14:00-0500 Diastolic blood pressure 80 mm[Hg] Nigel Nitin AUTOMOBILE TRAVEL CLUB COUNSELOR.STEEL RIGGER Work Phone: [facility] 05-21-2022 14:00-0500 Heart rate 82 /min Nigel Nitin AUTOMOBILE TRAVEL CLUB COUNSELOR.STEEL RIGGER Work Phone: [facility] 05-21-2022 14:00-0500 Respiratory rate 18 /min Nigel Nitin AUTOMOBILE TRAVEL CLUB COUNSELOR.STEEL RIGGER Work Phone: [facility] 05-21-2022 14:00-0500 SaO2% (BldA) [Mass fraction] 95 % Nigel Nitin AUTOMOBILE TRAVEL CLUB COUNSELOR.STEEL RIGGER Work Phone: [facility] 05-21-2022 14:00-0500 Systolic blood pressure 122 mm[Hg] Nigel Nitin AUTOMOBILE TRAVEL CLUB COUNSELOR.STEEL RIGGER Work Phone: [facility] 03-04-2022 11:23-0400 Body height 160 cm Millie Sánchez MD Work Phone: [facility] 03-04-2022 11:23-0400 Body weight 73.94 kg Millie Sánchez MD Work Phone: [facility] 03-04-2022 11:23-0400 Diastolic blood pressure 84 mm[Hg] Millie Sánchez MD Work Phone: [facility] 03-04-2022 11:23-0400 Heart rate 82 /min Millie Sánchez MD Work Phone: [facility] 03-04-2022 11:23-0400 Respiratory rate 14 /min Millie Sánchez MD Work Phone: [facility] 03-04-2022 11:23-0400 SaO2% (BldA) [Mass fraction] 96 % Millie Sánchez MD Work Phone: [facility] 03-04-2022 11:23-0400 Systolic blood pressure 134 mm[Hg] Millie Sánchez MD Work Phone: [facility] 03-04-2022 11:040 Body height 160 cm Respiratory Wstr Work Phone: [facility] 03-04-2022 11:040 Body weight 73.94 kg Respiratory Wstr Work Phone: [facility] Encounters Encounter Date Encounter Type Care Provider Facility Start: 02-21-2025 Evaluation and management of inpatient Dr. Lynn Duke MD -Progressive Care Unit Work Phone: Start: 02-21-2025 End: 02-21-2025 Patient encounter procedure Raven Tan APRN.STEEL RIGGER Work Phone: [facility] [place] Comment on above: Hypoxemia; Acute respiratory distress Start: 02-18-2025 End: 02-19-2025 ambulatory Gurmeet Tao APRN.STEEL RIGGER Work Phone: [facility] [place] Comment on above: Anxiety Start: 01-28-2025 End: 01-28-2025 ambulatory Alberto Avelar MD Work Phone: [facility] [place] Comment on above: Water pill Start: 01-21-2025 End: 01-21-2025 ambulatory Mily Tapia APRN.STEEL RIGGER Work Phone: Pulmonary Medicine Comment on above: Trilogy Ellipta 200 mcg Start: 01-21-2025 End: 01-21-2025 Refill Millie Sánchez MD Work Phone: Pulmonary Medicine Comment on above: Refill Request Start: 01-17-2025 End: 01-21-2025 Refill Helen ALEJOC Work Phone: Pulmonary Medicine Comment on above: Refill Request Start: 01-15-2025 End: 01-15-2025 Refill Alberto Avelar MD Work Phone: Family [facility] [place] Comment on above: Refill Request Start: 01-07-2025 End: 01-07-2025 ambulatory Mily Tapia AUTOMOBI[employer] TRAVEL [employer]UB COUNSELOR.STEEL RIGGER Work Phone: Pulmonary Medicine Comment on above: and Stepson may be sick Start: 11-28-2024 End: 11-28-2024 Follow-up encounter Nathalie Mojica APRN.CNP Work Phone: Pulmonary Medicine Start: 11-27-2024 End: 11-27-2024 Refill Karina Gustafson AUTOMOBILE TRAVEL CLUB COUNSELOR.STEEL RIGGER Work Phone: Pulmonology [facility] Comment on above: Refill Request Start: 11-21-2024 End: 11-29-2024 Refill Helen ALEJOC Work Phone: Pulmonary Medicine Comment on above: Refill Request Start: 11-18-2024 End: 11-18-2024 Patient encounter procedure Nathalie Mojica APRN.STEEL RIGGER Work Phone: Pulmonary Medicine Comment on above: Lung nodules (Primar y Dx); Former cigarette smoker; Stage 4 very severe COPD by GOLD classification ([facility]) Start: 11-18-2024 End: 11-18-2024 ambulatory NATHALIE MOJICA Facility:[facility] Start: 11-18-2024 End: 11-18-2024 Subsequent hospital visit by physician Ct [facility] (I-Stat) Work Phone: Cat Scan Comment on above: Lung nodules [R91.8] Start: 11-17-2024 End: 11-17-2024 ambulatory Liv Malave RN NURSE SAFETY DEPOSIT SUPERVISOR Comment on above: Difficulty Breathing Start: 11-01-2024 End: 11-01-2024 ambulatory Gurmeet Tao AUTOMOBILE TRAVEL CLUB COUNSELOR.STEEL RIGGER Work Phone: [facility] [place] Comment on above: Sleeping difficulty (Primary Dx); Anxiousness; Stage 4 very severe COPD by GOLD classification (HCC) Start: 11-01-2024 End: 11-01-2024 Telemedicine consultation with patient Gurmeet Aislinn ARREDONDOSTEEL RIGGER Work Phone: [facility] [place] Start: 10-28-2024 End: 10-28-2024 Telephone encounter Dian Villarreal Delivery Recruiter [facility] Comment on above: Appointment (Pulmona ry Rehab Eval) Start: 10-21-2024 End: 10-21-2024 Telephone encounter Dian Villarreal Delivery Recruiter [facility] Comment on above: Appointment (Pulmona ry Rehab Eval) Start: 10-18-2024 End: 10-18-2024 Telemedicine consultation with patient Mily Tapia APRN.STEEL RIGGER Work Phone: Pulmonary Medicine Start: 10-18-2024 End: 10-18-2024 ambulatory Mily Tapia APRN.STEEL RIGGER Work Phone: Pulmonary Medicine Comment on above: Stage 4 very severe COPD by GOLD classification (HCC) (Primary Dx); Chronic hypoxemic respiratory failure (HCC) COPD, severe (HCC) ( Primary Dx) Start: 10-11-2024 End: 10-14-2024 ambulatory Mily Tapia APRN.STEEL RIGGER Work Phone: Pulmonary Medicine Start: 10-11-2024 End: 10-14-2024 Patient encounter procedure Mily Tapia APRN.STEEL RIGGER Work Phone: Pulmonary Medicine Comment on above: I have an appointmen t on 18 October. Start: 08-26-2024 End: 08-29-2024 ambulatory Mily Tapia APRN.STEEL RIGGER Work Phone: Pulmonary Medicine Comment on above: Reschedule Start: 08-05-2024 End: 08-06-2024 ambulatory Alberto Avelar MD Work Phone: [facility] Comment on above: Water pills Start: 08-01-2024 End: 08-01-2024 E-mail encounter from caregiver Gurmeet Tao DIOGO.STEEL RIGGER Work Phone: Family [facility] Start: 08-01-2024 End: 08-01-2024 ambulatory Gurmeet Tao APRN.STEEL RIGGER Work Phone: [facility] [place] Comment on above: Labs Start: 08-01-2024 End: 08-01-2024 Patient encounter procedure Alberto Avelar MD Work Phone: [facility] Comment on above: Hospital discharge f ollow-up (Primary Dx); COPD with exacerbation (HCC); Bacterial pneumonia; JOSEPH (generalized anxiety disorder); Sleeping difficulty Start: 07-30-2024 End: 07-30-2024 ambulatory MILY TAPIA Facility:[facility] Start: 07-30-2024 End: 07-30-2024 Subsequent hospital visit by physician Randell [facility] Work Phone: Radiology Comment on above: Pneumonia of both lo wer lobes due to infectious organism [J18.9] Start: 07-30-2024 End: 07-30-2024 Office outpatient visit 25 minutes Mily Tapia AUTOMOBILE TRAVEL CLUB COUNSELOR.STEEL RIGGER Work Phone: Pulmonary Medicine Comment on above: Hospital discharge f ollow-up (Primary Dx); Pneumonia of both lower lobes due to infectious organism; Stage 4 very severe COPD by GOLD classification (HCC); Dependence on continuous supplemental oxygen Start: 07-30-2024 End: 07-30-2024 ambulatory GURMEET TAO Facility:[facility] Start: 07-23-2024 End: 07-23-2024 ambulatory Millie Sánchez MD Work Phone: Pulmonary Medicine Comment on above: It hospitalized over the weekend with pneumonia I was hospitalized w ith pneumonia over the weekend Transition Of Care Start: 07-20-2024 ambulatory [facility] Facility: [facility] Start: 07-20-2024 End: 07-22-2024 Evaluation and management of inpatient [facility] Facility:[facility] Start: 07-01-2024 End: 07-02-2024 ambulatory Millie Sánchez MD Work Phone: Pulmonary Medicine Comment on above: Mobility chair Start: 06-21-2024 End: 06-21-2024 ambulatory Helen Newman PA-C Work Phone: Pulmonary Medicine Comment on above: Antibiotic antibioti cs Start: 06-20-2024 End: 06-21-2024 ambulatory Gurmeet Tao AUTOMOBILE TRAVEL CLUB COUNSELOR.STACY Work Phone: Family [facility] [place] Comment on above: Antibiotic Start: 06-18-2024 End: 06-18-2024 ambulatory [facility] Facility:[facility] Start: 06-18-2024 End: 06-18-[address] [facility] Gurmeet Tao AUTOMOBILE TRAVEL CLUB COUNSELOR.STEEL RIGGER Work Phone: [facility] [place] Comment on above: Anxiousness (Primary Dx); Stage 4 very severe COPD by GOLD classification ([facility]); Screening for prostate cancer; Screening for lipid disorders; Screening for diabetes mellitus Start: 06-17-2024 End: 06-17-2024 Refill Shalini Jacobo APRN.STEEL RIGGER Work Phone: Family [facility] [place] Comment on above: Refill Request; Medi cation Problem (Patient has been out of Buspirone since last week) Formally request Start: 06-15-2024 End: 06-17-2024 Get Medical Advice Helen Newman PA-C Work Phone: Pulmonary Medicine Comment on above: Need refill Start: 05-27-2024 End: 05-27-2024 Telephone encounter Nathalie Mojica APRN.CNP Work Phone: Pulmonary Medicine Comment on above: Results Start: 05-20-2024 End: 05-20-2024 Patient encounter procedure Nathalie Mojica APRN.CNP Work Phone: Pulmonary Medicine Comment on above: Lung nodules (Primar y Dx); Former cigarette smoker; Stage 4 very severe COPD by GOLD classification ([facility]) Start: 05-20-2024 End: 05-20-2024 ambulatory NATHALIE MOJICA Facility:[facility] Start: 05-20-2024 End: 05-20-2024 Subsequent hospital visit by physician [facility] (I-Stat) Work Phone: Cat Scan Comment on above: Lung nodules [R91.8] Start: 05-15-2024 End: 05-15-2024 ambulatory Millie Sánchez MD Work Phone: Pulmonary Medicine Comment on above: Need three Month pre scriptions Start: 05-15-2024 End: 05-15-2024 Refill Shalini Jacobo AUTOMOBILE TRAVEL CLUB COUNSELOR.STEEL RIGGER Work Phone: [facility] [place] Comment on above: Med Change Request Start: 04-10-2024 End: 04-10-2024 Refill Gurmeet Tao AUTOMOBILE TRAVEL CLUB COUNSELOR.STEEL RIGGER Work Phone: Family [facility] [place] Comment on above: Refill Request Start: 02-29-2024 End: 02-29-2024 ambulatory Pulm Lab [facility] Work Phone: PULM LAB [facility] Comment on above: Spirometry Start: 02-29-2024 End: 02-29-2024 Patient encounter procedure [facility] Work Phone: PULM LAB [facility] Comment on above: Stage 4 very severe COPD by GOLD classification ([facility]) (Primary Dx); Dependence on continuous supplemental oxygen; Former cigarette smoker Start: 01-28-2024 Get Medical Advice Mechelle Sánchez MD Work Phone: Pulmonary Medicine Comment on above: Refill my prescripti on of trilogy Start: 01-28-2024 Refill Helen Aparicio PA-C Work Phone: Pulmonary Medicine Comment on above: Refill Request Start: 12-02-2023 Refill Karina Mirxander Gustafson AUTOMOBILE TRAVEL CLUB COUNSELOR.STEEL RIGGER Work Phone: Pulmonary Medicine Comment on above: Refill Request Start: 10-20-2023 ambulatory Millie Sánchez MD Work Phone: Pulmonary Medicine Comment on above: Long-term disability Start: 08-29-2023 End: 08-29-2023 Office outpatient visit 15 minutes Helen ALEJOC Work Phone: Pulmonary Medicine Comment on above: Stage 4 very severe COPD by GOLD classification (HCC) (Primary Dx); Former cigarette smoker; Chronic hypoxemic respiratory failure (HCC); Chronic sinusitis, unspecified location; GHASSAN (obstructive sleep apnea) Start: 08-29-2023 End: 08-29-2023 ambulatory Pulm Lab [facility] Work Phone: PULM LAB [facility] Comment on above: Spirometry Start: 08-29-2023 End: 08-29-2023 Patient encounter procedure Pulm Lab [facility] Work Phone: [facility] [place] Start: 06-15-2023 ambulatory Helen Aparicio PA-C Work Phone: Pulmonary Medicine Comment on above: More paperwork Start: 06-14-2023 End: 06-14-2023 Office outpatient visit 15 minutes Helen Newman PA-C Work Phone: Pulmonary Medicine Comment on above: Stage 4 very severe COPD by GOLD classification ([facility]) (Primary Dx); Former cigarette smoker; Chronic hypoxemic respiratory failure (HCC); Lung nodules Start: 05-01-2023 Telephone encounter Nathalie mcconnell APRN.STEEL RIGGER Work Phone: [facility] Comment on above: Results Start: 04-27-2023 ambulatory Helen Aparicio PA-C Work Phone: Pulmonary Medicine Comment on above: Matrix Start: 04-27-2023 Telephone encounter Millie Sánchez MD Work Phone: Pulmonary Medicine Comment on above: Patient Update Start: 04-26-2023 Telephone encounter Helen Newman PA-C Work Phone: General Surgery Comment on above: [employer] (Short Term Disability) Start: 04-24-2023 End: 04-24-2023 Subsequent hospital visit by physician [facility] (I-Stat) Work Phone: Cat Scan Comment on above: Lung nodules [R91.8] Start: 04-18-2023 Refill Gurmeet MIRANDA RN.STEEL RIGGER Work Phone: [facility] [place] Comment on above: Refill Request Start: 03-14-2023 End: 03-14-2023 Patient encounter procedure Millie Sánchez MD Work Phone: Pulmonary Medicine Comment on above: Stage 4 very severe COPD by GOLD classification ([facility]) (Primary Dx); Chronic hypoxemic respiratory failure (HCC) Start: 03-13-2023 Orders Only Helen Yadav one PA-C Work Phone: Pulmonary Medicine Comment on above: Former cigarette smo ker (Primary Dx) Orders Start: 03-10-2023 ambulatory Helen Aparicio PA-C Work Phone: Pulmonary Medicine Comment on above: Short term, disabili ty Start: 02-22-2023 ambulatory Helen Aparicio PA-C Work Phone: Pulmonary [...] Alberto Avelar MD Work Phone: [facility] [place] Comment on above: Pulmonary emphysema, unspecified emphysema type (HCC) (Primary Dx); Stage 4 very severe COPD by GOLD classification ([facility]) Start: 11-26-2022 ambulatory Helen Aparicio PA-C Work Phone: Pulmonary Medicine Comment on above: Question about medic ine Start: 11-25-2022 ambulatory Helen Aparicio PA-C Work Phone: Pulmonary Medicine Comment on above: Electric priority Start: 11-14-2022 ambulatory Gurmeet MIRANDA RN.STEEL RIGGER Work Phone: [facility] [place] Comment on above: Lift chair Start: 11-14-2022 End: 11-14-2022 Patient encounter procedure Helen Newman PA-C Work Phone: Pulmonary Medicine Comment on above: Stage 4 very severe COPD by GOLD classification ([facility]) (Primary Dx); Asthma-COPD overlap syndrome (HCC); History of seasonal allergies; Former cigarette smoker; GHASSAN (obstructive sleep apnea); Dependence on nocturnal oxygen therapy Start: 11-03-2022 ambulatory Helen Aparicio PA-C Work Phone: Pulmonary Medicine Comment on above: Lung infection Start: 07-06-2022 ambulatory Helen Aparicio PA-C Work Phone: Pulmonary Medicine Comment on above: Changed insurance Start: 05-21-2022 End: 05-21-2022 Patient encounter procedure Nigel Taveras DIOGO.STEEL RIGGER Work Phone: [facility] Comment on above: COPD with exacerbati on ([facility]) (Primary Dx) Start: 05-17-2022 ambulatory Helen Aparicio PA-C Work Phone: Pulmonary Medicine Comment on above: Shots Start: 04-27-2022 Chart abstracting Nurse B[facility] Work Phone: Pulmonary Medicine Start: 04-22-2022 Refill Gurmeet MIRANDA RN.STEEL RIGGER Work Phone: [facility] Comment on above: Refill Request Start: 03-23-2022 ambulatory Millie Sánchez MD Work Phone: Pulmonary Medicine Comment on above: Results Vaccines Start: 03-23-2022 E-mail encounter fro m caregiver Millie Sánchez MD Work Phone: [facility] [place] Start: 03-22-2022 ambulatory Millie Sánchez MD Work Phone: Pulmonary Medicine Comment on above: Question regarding A LGN [place] BLD Start: 03-16-2022 End: 03-16-2022 Subsequent hospital visit by physician [facility] (I-Stat) Work Phone: Cat Scan Comment on above: Stage 4 very severe COPD by GOLD classification (HCC) [J44.9] Start: 03-14-2022 Refill Helen Reynaga Leif piña PA-C Work Phone: Pulmonary Medicine Comment on above: Refill Request Start: 03-11-2022 ambulatory Millie Sánchez MD Work Phone: Pulmonary Medicine Comment on above: Question regarding E OSINOPHIL ABS COUNT Start: 03-11-2022 Refill Helenbassam Aparicio PA-C Work Phone: Pulmonary Medicine Comment on above: Refill Request Start: 03-04-2022 End: 03-04-2022 ambulatory Respiratory Therapist [facility] Work Phone: Pulmonary Medicine Comment on above: Spirometry Inspire device Start: 03-04-2022 E-mail encounter lisette m caregiver Millie Sánchez MD Work Phone: [facility] [employer] Start: 03-04-2022 End: 03-04-2022 Patient encounter procedure Respiratory Therapist [facility] Work Phone: [facility] Comment on above: Stage 4 very severe COPD by GOLD classification (HCC) (Primary Dx); Asthma-COPD overlap syndrome (HCC); 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HCC); Former cigarette smoker; History of seasonal allergies Start: 02-25-2022 Chart abstracting Helen conte PA-C Work Phone: Pulmonary Medicine Start: 02-03-2022 End: 02-03-2022 ambulatory Alvaro Reynaga Lakia ARREDONDOSTEEL RIGGER Work Phone: Neurology Comment on above: Obstructive sleep ap alexander (Primary Dx) Start: 02-03-2022 End: 02-03-2022 Telemedicine consultation with patient Alvaro Juhi Dorman APRN.STEEL RIGGER Work Phone: [place] [id number] Start: 01-06-2022 Telephone encounter Shaun Hernandez MD Work Phone: Neurology Comment on above: Electronic Communica tion Start: 12-30-2021 End: 12-30-2021 ambulatory Shaun Hernandez MD Work Phone: Neurology Comment on above: GHASSAN (obstructive sle ep apnea); GHASSAN on CPAP Start: 12-30-2021 End: 12-30-2021 Telemedicine consultation with patient Shaun Hernandez Jr., MD Work Phone: [facility] Start: 12-15-2021 ambulatory Helen Reynaga Leif piña PA-C Work Phone: Pulmonary Medicine Comment on above: FMLA paperwork from [facility] Start: 11-25-2021 Chart abstracting Helen conte PA-C Work Phone: Pulmonary Medicine Start: 11-18-2021 ambulatory Helen Aparicio PA-C Work Phone: Pulmonary Medicine Comment on above: CPAP machine Start: 10-22-2021 Refill Helen Yadav ayana PA-C Work Phone: Pulmonary Medicine Comment on above: Refill Request Procedures Date Procedure Procedure Detail Performing Clinician Start: 02-21-2025 Plain chest X-ray Dr. Juhi Avelar MD Work Phone: Start: 02-21-[address] Alberto Avelar MD Work Phone: Start: 07-30-2024 Radiologic exam ches t 2 views Mily Tapia AUTOMOBILE TRAVEL CLUB COUNSELOR.STEEL RIGGER Work Phone: Start: 07-30-2024 Lipid 1996 panel - S nati or Plasma Gurmeet Tao AUTOMOBILE TRAVEL CLUB COUNSELOR.STEEL RIGGER Work Phone: Start: 02-29-2024 Noninvasive ear/puls e oximetry multiple deter Helen Newman PA-C Work Phone: Start: 08-29-2023 Spmtry w/vc expirato ry natty w/wo mxml vol vntj Helen Newman PA-C Work Phone: Start: 04-24-2023 Ct thorax w/o contra st material Nathalie Mojica AUTOMOBILE TRAVEL CLUB COUNSELOR.STEEL RIGGER Work Phone: Start: 09-14-2022 Ct thorax w/o contra st material Millie Sánchez MD Work Phone: Start: 03-04-2022 Spmtry w/vc expirato ry natty w/wo mxml vol vntj Helen Newman PA-C Work Phone: Start: 02-02-2022 Adult depression scr eening assessment Alvaro Dorman APRN.STEEL RIGGER Work Phone: Start: 12-26-2021 Adult depression scr [...] Author Start: 07-30-2029 Lipid panel Lipid Screening [facility] Start: 07-30-2029 Prostate specific antigen measurement Prostate Cancer Screening Discussion [facility] Start: 04-10-2029 Colonoscopy COLONOSCOPY [facility] Start: 04-10-2029 COLORECTAL CANCER SCREENING COLORECTAL CANCER SCREENING [facility] Start: 04-10-2029 Screening for malign ant neoplasm of colon [facility] Start: 07-30-2027 Diabetes Screening Diabetes Screenin g [facility] Start: 11-18-2025 Screening for malign ant neoplasm of lung Lung Cancer Screening [facility] Start: 11-01-2025 Annual PCP Team Resident Care Aid yi Disease Visit Annual PCP Team Chronic Disease Visit [facility] Start: 08-01-2025 Annual PCP Team Resident Care Aid yi Disease Visit Annual PCP Team Chronic Disease Visit [facility] Start: 06-18-2025 Annual PCP Team Resident Care Aid yi Disease Visit Annual PCP Team Chronic Disease Visit [facility] Start: 05-26-2025 End: 05-26-2025 Patient encounter procedure Cat Scan Comment on above: 6 month-Lung nodules [R91.8 6 month C/m/n Start: 05-20-2025 Screening for malign ant neoplasm of lung Lung Cancer Screening [facility] Start: 04-03-2025 End: 04-03-2025 Patient encounter procedure 04/03/2025 11:30 AM EDT Office Visit Pulmonary Medicine [address] [place] [id number] Lydia Fitzpatrick APRN.STEEL RIGGER [address] [facility] [place] [id number] 3 month f/u Pulmonary Medicine Comment on above: 3 month f/u Start: 04-03-2025 End: 04-03-2025 Patient encounter procedure 04/03/2025 10:20 AM EDT Appointment Cat Scan [address] [place] [address] Cat Scan Comment on above: [address] Start: 03-03-2025 Influenza vaccination Influenza Vacc ine (#1) [facility] Start: 02-21-2025 Admission procedure [facility] Start: 02-21-2025 Hospital admission, emergency, from emergency room, medical nature [facility] Start: 02-21-2025 Taking nasal swab [facility] Start: 02-21-2025 [facility] Start: 02-21-2025 Continuous pulse oximetry [facility] Start: 02-21-2025 Dual pressure spontaneous ventilation support [facility] Start: 02-21-2025 End: 02-21-2025 [facility] Start: 02-21-2025 Bacteria identified in Blood by Culture Blood Culture [facility] Start: 02-20-2025 End: 02-20-2025 Patient encounter procedure Cat Scan Comment on above: [address] 3 month f/u Start: 01-29-2025 End: 04-30-2025 Comprehensive metabolic 2000 panel - Serum or Plasma COMPREHENSIVE METABOLIC PANEL Lab Routine Elevated LFTs Expected: 01/29/2025 (Approximate), Expires: 04/30/2025 [facility] Comment on above: Expected: 01/29/2025 (Approximate), Expires: 04/30/2025 Start: 01-29-2025 End: 04-30-2025 Hemoglobin A1c in Blood HEMOGLOBIN A1C Lab Routine Elevated glucose Expected: 01/29/2025 (Approximate), Expires: 04/30/2025 [facility] Work Phone: Comment on above: Expected: 01/29/2025 (Approximate), Expires: 04/30/2025 Start: 01-29-2025 End: 04-30-2025 Lipid 1996 panel - Serum or Plasma LIPID PANEL BASIC Lab Routine Hyperlipidemia, mixed Expected: 01/29/2025 (Approximate), Expires: 04/30/2025 [facility] Comment on above: Expected: 01/29/2025 (Approximate), Expires: 04/30/2025 Start: 11-18-2024 End: 11-18-2024 Patient encounter procedure Cat Scan Comment on above: 6 month-Lung nodules [R91.8 6 month C/m/n Start: 11-01-2024 End: 11-01-2024 Follow-up encounter 11/01/2024 11:[address] [facility] [place] [address] [place], [place] [id number] Gurmeet Tao APRN.STEEL RIGGER [address] [place] [address] 3 month follow up anxiety, COPD, sleep [facility] [place] Comment on above: 3 month follow up an xiety, COPD, sleep Start: 10-30-2024 End: 10-30-2024 Patient encounter procedure 10/30/2024 11:20 AM EDT Office Visit [facility] [place] [address] [place], [place] [id number] Shalini Jacobo APRN.STEEL RIGGER [address] [place] [address] 3 month follow up anxiety, COPD, sleep [facility] [place] Comment on above: 3 month follow up an xiety, COPD, sleep Start: 10-18-2024 End: 10-18-2024 ambulatory 10/18/2024 1:[address] [facility] Pulmonary Medicine [address] [place] [address] Mily Tapia AUTOMOBILE TRAVEL CLUB COUNSELOR.STEEL RIGGER [address] [facility] [address] [place] [address] 6 MTH F/U Pulmonary Medicine Comment on above: 6 MTH F/U Start: 10-18-2024 End: 10-18-2024 Patient encounter procedure 10/18/2024 1:00 PM EDT Office Visit Pulmonary Medicine [address] [place] [address] Mily Tapia APRN.STEEL RIGGER [address] [place] [address] 6 MTH F/U Pulmonary Medicine Comment on above: 6 MTH F/U Start: 08-30-2024 End: 08-30-2024 Patient encounter procedure 08/30/2024 1:30 PM EST Office Visit Pulmonary Medicine [address] [place] [address] Mily Tapia APRN.STEEL RIGGER [address] [place] [address] 6 MTH F/U Pulmonary Medicine Comment on above: 6 MTH F/U Start: 08-01-2024 End: 08-01-2024 Patient encounter procedure 08/01/2024 10:00 AM EST Office Visit [facility] [place] [address] [place] [address] Alberto Avelar MD [address] [place] [address] [facility] hosp 07/22/24 [place] [facility] [place] Comment on above: [facility] Start: 07-30-2024 End: 07-30-2024 Patient encounter procedure Pulmonary Medicine Comment on above: [facility] Hosp follow up [place] [facility] hosp 07/22/24 [facility] Start: 06-18-2024 End: 09-17-2024 Comprehensive metabolic 2000 panel - Serum or Plasma COMPREHENSIVE METABOLIC PANEL Lab Routine Screening for diabetes mellitus Expected: 06/18/2024, Expires: 09/17/2024 [facility] Comment on above: Expected: 06/18/2024 , Expires: 09/17/2024 Start: 06-18-2024 End: 09-17-2024 LIPID PANEL, NONFASTING LIPID PANEL, NONFASTING Lab Routine Screening for lipid disorders Expected: 06/18/2024, Expires: 09/17/2024 [facility] Comment on above: Expected: 06/18/2024 , Expires: 09/17/2024 Start: 06-18-2024 End: 09-17-2024 PSA/PROSTATE SPECIFIC ANTIGEN SCREENING PSA/PROSTATE SPECIFIC ANTIGEN SCREENING Lab Routine Screening for prostate cancer Expected: 06/18/2024, Expires: 09/17/2024 [facility] Work Phone: Comment on above: Expected: 06/18/2024 , Expires: 09/17/2024 Start: 06-18-2024 End: 06-18-2024 Patient encounter procedure 06/18/2024 1:40 PM EST Office Visit Family Medicine [place] [address] [place] [address] Gurmeet Tao APRN.STEEL RIGGER [address] [place] [place] [address] Yearly exam [facility] [place] Comment on above: Yearly exam Start: 05-20-2024 End: 05-20-2024 Patient encounter procedure Cat Scan Comment on above: Lung nodules [R91.8] Lung screening Start: 04-24-2024 Influ[facility] Start: 04-24-2024 Screening for malign ant neoplasm of lung Lung Cancer Screening [facility] Start: 03-03-2024 Covid-19 Vaccine ( season) Covid-19 Vaccine ( season) [facility] Start: 03-03-2024 Influenza vaccination Influenza Vacc ine (#1) [facility] Start: 02-29-2024 End: 02-29-2024 Patient encounter procedure 02/29/2024 1:45 PM EDT Office Visit Pulmonary Medicine [address] [place] [address] Millie Sánchez MD [address] [place] [address] 6 month f/u Pulmonary Medicine Comment on above: 6 month f/u Start: 02-29-2024 End: 02-29-2024 ambulatory 02/29/2024 1:15 PM EDT Procedure PULM LAB [facility] [address] [facility] [address] W[facility], Pulm Lab [facility] [address] [place] [address] Stage 4 very severe COPD by GOLD classification (HCC) [J44.9]; Chronic hypoxemic respiratory failure (HCC) [J96.11] PULM LAB [facility] Comment on above: Stage 4 very severe COPD by GOLD classification (HCC) [J44.9]; Chronic hypoxemic respiratory failure (HCC) [J96.11] Start: 01-01-2024 DIABETES SCREEN DIABETES SCREEN [facility] Start: 01-01-2024 Diabetes Screening Diabetes Screenin g [facility] Start: 12-02-2023 ANNUAL PCP TEAM ROCK MASON YI DISEASE VISIT ANNUAL PCP TEAM CHRONIC DISEASE VISIT [facility] Start: 07-03-2023 Behavioral Health Screening Behavioral Health Screening [facility] Start: 07-03-2023 Depression Assessment Depression Ass essment [facility] Start: 05-17-2023 PNEUMOCOCCAL (2 - PCV) PNEUMOCOCCAL (2 - PCV) [facility] Start: 03-16-2023 Influenza vaccination LUNG CANCER SC REENING [facility] Start: 03-03-2023 Covid-19 Vaccine ( season) Covid-19 Vaccine ( season) [facility] Start: 03-03-2023 Influenza vaccination [facility] Start: 02-02-2023 Adult depression screening assessment DEPRESSION SCREENING [facility] Start: 12-26-2022 Adult depression screening assessment DEPRESSION SCREENING [facility] Start: 11-15-2022 PROSTATE CANCER SCREENING DISCUSSION PROSTATE CANCER SCREENING DISCUSSION [facility] Start: 11-15-2022 Prostate specific antigen measurement Prostate Cancer Screening Discussion [facility] Start: 07-12-2022 SHINGRIX VACCINE (2 of 2) SHINGRIX VACCINE (2 of 2) [facility] Start: 07-03-2022 DEPRESSION ASSESSMENT DEPRESSION ASS ESSMENT [facility] Start: 06-20-2022 COVID-19 VACCINE (5 - Booster for Pfizer series) COVID-19 VACCINE (5 - Booster for Pfizer series) [facility] Start: 06-20-2022 COVID-19 VACCINE (5 - Pfizer series) COVID-19 VACCINE (5 - Pfizer series) [facility] Start: 03-04-2022 End: 05-04-2022 ALGN LAWNDALE GRP ALGN LAWNDALE GRP Lab Routine Asthma-COPD overlap syndrome (HCC) Expected: 03/04/2022, Expires: 05/04/2022 [facility] Work Phone: Comment on above: Expected: 03/04/2022 , Expires: 05/04/2022 Start: 03-04-2022 End: 05-04-2022 Eosinophils [#/volume] in Blood EOSINOPHIL ABS COUNT Lab Routine Asthma-COPD overlap syndrome (HCC) Expected: 03/04/2022, Expires: 05/04/2022 [facility] Work Phone: Comment on above: Expected: 03/04/2022 , Expires: 05/04/2022 Start: 03-04-2022 End: 05-04-2022 IgE [Units/volume] in Serum or Plasma IGE BLD Lab Routine Asthma-COPD overlap syndrome (HCC) Expected: 03/04/2022, Expires: 05/04/2022 [facility] Work Phone: Comment on above: Expected: 03/04/2022 , Expires: 05/04/2022 Start: 03-03-2022 Influenza vaccination INFLUENZA (#1) [facility] Start: 11-07-2021 COVID-19 VACCINE (4 - Booster for Pfizer series) COVID-19 VACCINE (4 - Booster for Pfizer series) [facility] Start: 09-04-2021 COVID-19 VACCINE (4 - Booster for Pfizer series) COVID-19 VACCINE (4 - Booster for Pfizer series) [facility] Start: 07-03-2021 DEPRESSION ASSESSMENT DEPRESSION ASS ESSMENT [facility] Start: 05-26-2021 PNEUMOCOCCAL (2 - PCV) PNEUMOCOCCAL (2 - PCV) [facility] Start: 05-15-2021 ANNUAL PCP TEAM ROCK MASON YI DISEASE VISIT ANNUAL PCP TEAM CHRONIC DISEASE VISIT [facility] Start: 01-04-2021 Lipid 1996 panel - S nati or Plasma Lipid Screening [facility] Start: 01-04-2021 Lipid panel Lipid Screening [facility] Start: 01-04-2021 LIPID SCREEN LIPID SCREEN [facility] Start: 09-22-2018 Adult depression screening assessment DEPRESSION SCREENING [facility] Start: 11-15-2017 Influenza vaccination LUNG CANCER [facility] Start: 11-15-2017 SHINGRIX VACCINE (1 of 2) SHINGRIX VACCINE (1 of 2) [facility] Start: 11-15-2012 COLOGUARD (FIT-DNA) COLOGUARD (FIT-D NA) [facility] Start: 11-15-[address] COLONOGRAPHY [facility] Start: 11-15-2012 FECAL OCCULT BLOOD FECAL OCCULT BLOO D [facility] Start: 11-15-2012 Screening for malign ant neoplasm of colon [facility] Start: 11-15-2012 SIGMOIDOSCOPY SIGMOIDOSCOPY [facility] Start: 11-15-1986 Hepatitis B Vaccine (1 of 3 - 19+ 3-dose series) Hepatitis B Vaccine (1 of 3 - 19+ 3-dose series) [facility] Start: 11-15-1986 Urine microalbumin profile [facility] Start: 11-15-1985 Anxiety Screening Anxiety Screening [facility] Start: 11-15-1985 Depression Screening Depression Scre ing [facility] Start: 11-15-1985 HEPATITIS C SCREENING HEPATITIS C [facility] Start: 11-15-1985 Hepatitis C screening Hepatitis C [facility] Start: 11-15-1985 HIV SCREENING HIV SCREENING [facility] Start: 11-15-1985 HIV screening HIV Screening [facility] Start: 1965 HEPATITIS B (1 of 3 - 3-dose series) HEPATITIS B (1 of 3 - 3-dose series) [facility] Start: 1965 Hepatitis B Vaccine (1 of 3 - 3-dose series) Hepatitis B Vaccine (1 of 3 - 3-dose series) [facility] CT Chest WO contrast CT CHEST WO IVCON Radiology Routine Lung nodules 05/20/2024 11:37 AM EST [facility] Work Phone: End: 06-26-2025 CT Chest WO contrast CT CHEST WO IVCON Radiology Routine Lung nodules 1 Occurrences starting 05/27/2024 until 06/26/2025 [facility] Work Phone: Comment on above: 1 Occurrences starti ng 05/27/2024 until 06/26/2025 End: 12-18-2025 CT Chest WO contrast CT CHEST WO IVCON Radiology Routine Lung nodules 1 Occurrences starting 11/18/2024 until 12/18/2025 [facility] Work Phone: Comment on above: 1 Occurrences starti ng 11/18/2024 until 12/18/2025 CT Chest WO contrast CT CHEST WO IVCON Radiology Routine Lung nodules 11/18/2024 11:10 AM EDT [facility] Work Phone: End: 04-03-2023 Ct thorax w/o contrast material CT CHEST WO IVCON Radiology Routine Stage 4 very severe COPD by GOLD classification (HCC) 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HCC) 1 Occurrences starting 03/04/2022 until 04/03/2023 [facility] Work Phone: Comment on above: 1 Occurrences starti ng 03/04/2022 until 04/03/2023 End: 05-30-2024 Ct thorax w/o contrast material CT CHEST WO IVCON Radiology Routine Lung nodules 1 Occurrences starting 05/01/2023 until 05/30/2024 [facility] Work Phone: Comment on above: 1 Occurrences starti ng 05/01/2023 until 05/30/2024 End: 12-14-2023 OXIMETRY WITH AMBULATION OXIMETRY WITH AMBULATION PFT Routine Stage 4 very severe COPD by GOLD classification (HCC) 1 Occurrences starting 11/14/2022 until 12/14/2023 [facility] Work Phone: Comment on above: 1 Occurrences starti ng 11/14/2022 until 12/14/2023 End: 09-27-2024 OXIMETRY WITH AMBULATION OXIMETRY WITH AMBULATION PFT Routine Stage 4 very severe COPD by GOLD classification (HCC) Chronic hypoxemic respiratory failure (HCC) 1 Occurrences starting 08/29/2023 until 09/27/2024 [facility] Work Phone: Comment on above: 1 Occurrences starti ng 08/29/2023 until 09/27/2024 Pulmonary rehabilita tion pro CONSULT PULMONARY REHABILITATION PROGRAM Procedures Routine COPD, severe ([facility]) Ordered: 10/18/2024 [facility] Work Phone: Comment on above: Ordered: 10/18/2024 Respiratory pathogen s DNA and RNA panel - Respiratory specimen by MAHESH with probe detection [facility] SPIROMETRY BASELINE ONLY SPIROME TRY BASELINE ONLY PFT Routine Stage 3 severe COPD by GOLD classification ([facility]) 03/04/2022 10:57 AM EDT [facility] Work Phone: [facility] Immunizations Immunization Date Immunization Notes Care Provider Fa [facility] 07-22-2024 influenza, seasonal, injectable Mily Click AUTOMOBILE TRAVEL CLUB COUNSELOR.STEEL RIGGER Work Phone: [facility] 07-22-2024 pneumococcal conjuga te (PCV20) vaccine, 20 valent (PREVNAR 20) Mily Click AUTOMOBILE TRAVEL CLUB COUNSELOR.STEEL RIGGER Work Phone: [facility] 07-22-2024 influenza virus vacc ine, unspecified formulation Mily Click AUTOMOBILE TRAVEL CLUB COUNSELOR.STEEL RIGGER Work Phone: [facility] 07-21-2024 influenza, seasonal, injectable, preservative free Dr. Alberto Avelar MD Work Phone: [facility] 01-15-2024 zoster vaccine recombinant Millie Sánchez MD Work Phone: [facility] 04-11-2023 influenza, injectabl e, quadrivalent, contains preservative Gurmeet Aislinn AUTOMOBILE TRAVEL CLUB COUNSELOR.STEEL RIGGER Work Phone: [facility] 04-11-2023 influenza virus vacc ine, unspecified formulation Millie Sánchez MD Work Phone: [facility] 11-15-2022 pneumococcal (PCV20) vaccine, 20 valent (PREVNAR 20) Helen Newman PA-C Work Phone: [facility] Work Phone: 05-17-2022 pneumococcal polysaccharide vaccine, 23 valent Helen Yadavone PA-C Work Phone: [facility] 05-17-2022 zoster vaccine recombinant Helen Newman PA-C Work Phone: [facility] 04-25-2022 COVID-19 vaccine (UNSPECIFIED) Nurse Wstr Work Phone: [facility] 04-25-2022 COVID-19 vaccine, ag e 12+ yr, bivalent (PFIZER-BIONTECH) Helen Yadavone PA-C Work Phone: [facility] Work Phone: 04-25-2022 Influenza, injectabl e, Madin Ana Canine Kidney, preservative free, quadrivalent Helen Yadavone PA-C Work Phone: [facility] Work Phone: 04-25-2022 influenza, seasonal, injectable Nurse Wstr Work Phone: [facility] 04-25-2022 influenza virus vacc ine, unspecified formulation Millie Sánchez MD Work Phone: [facility] 07-10-2021 Influenza, injectabl e, Madin [place] Canine Kidney, quadrivalent with preservative Helen Yadavone PA-C Work Phone: [facility] Work Phone: 11-12-2020 COVID-19 vaccine, ag e 12+ yr (PFIZER-BIONTECH - PURPLE TOP) Helen Yadavone PA-C Work Phone: [facility] 10-22-2020 COVID-19 vaccine, ag e 12+ yr (PFIZER-BIONTECH - PURPLE TOP) Helen Yadavone PA-C Work Phone: [facility] 05-26-2020 pneumococcal polysaccharide vaccine, 23 valent Helen Yadavone PA-C Work Phone: [facility] Work Phone: 05-15-2020 influenza, injectabl e, quadrivalent, contains preservative Helen Newman PA-C Work Phone: [facility] Payers Date Payer Category Payer Self-pay 2023 [employer] BLUE ACCE SS PPO 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 2017 Unknown [id number] Unknown [id number] Unknown [id number] Unknown [id number] Unknown [id number] Social History Date Type Detail Facility Start: 10-29-2015 End: 02-29-2024 Tobacco smoking status NHIS Ex-smoker [facility] Start: 1977 End: 09-06-2015 History of tobacco use Current smoker [facility] Start: 10-29-2015 End: 12-01-2022 Cigarettes smoked current (pack per day) - Reported 1 [facility] Start: 10-29-2015 End: 02-29-2024 Tobacco use and exposure User of smokeless tobacco [facility] History of tobacco use Chews Tobacco [facility] Start: 09-03-2021 End: 02-21-2025 Alcohol intake Current drinker of alcohol (finding) [facility] Start: 05-13-2020 End: 11-25-2022 History SDOH Alcohol Frequency 1 [facility] Start: 05-13-2020 End: 11-25-2022 History SDOH Alcohol Std Drinks 98 [facility] Start: 09-03-2021 History SDOH Alcohol Comment 1 beer a night [facility] Start: 05-13-2020 History SDOH Social Connections Phone 5 [facility] Start: 05-13-2020 End: 11-25-2022 History SDOH Social Connections Get Together 3 [facility] Start: 05-13-2020 End: 11-25-2022 History SDOH Social Connections Membership 2 [facility] Start: 05-13-2020 End: 11-25-2022 History SDOH Physical Activity DPW 0 [facility] Start: 05-13-2020 Education 21 [facility] Start: 09-22-2016 End: 03-04-2022 Tobacco Comment No smokers in current home. [facility] Start: 1965 Sex Assigned At Not on file [facility] Start: 2021 End: 05-21-2022 Exposure to SARS-CoV-2 (event) Not sure [facility] Start: 1979 End: 09-06-2015 History of tobacco use Cigarette Smoker [facility] Start: 11-25-2022 History SDOH Financial 4 [facility] Start: 11-25-2022 End: 12-01-2022 Social connection and isolation panel [facility] Start: 06-03-2012 In a typical week, h ow many times do you talk on the telephone with family, friends, or neighbors? Patient refused [facility] Do you belong to any clubs or organizations such as druze groups, unions, fraternal or athletic groups, or school groups? No [facility] Are you now , , , , never or living with a partner? [facility] How often to you hav e a drink containing alcohol? Monthly or less [facility] How many standard dr inks containing alcohol do you have on a typical day? 1 or 2 [facility] How often do you hav e 6 or more drinks on 1 occasion? Never [facility] How hard is it for y ou to pay for the very basics like food, housing, medical care, and heating Not very hard [facility] Do you feel stress - tense, restless, nervous, or anxious, or unable to sleep at night because your mind is troubled all the time - these days [OSQ] Only a little [facility] (I/We) worried catrina er (my/our) food would run out before (I/we) got money to buy more. Never true [facility] Start: 08-26-2019 Alcohol Alcohol [facility] Start: 08-26-2019 Lives Lives [facility] Start: 1965 Sex Assigned At Male W [facility] Medical Equipment Procedure Code Equipment Code Equipment Original Text Equipment Identifier Dates Clip Sugita 10mm Standard Titanium 2 9mm Aneurysm Slightly Curved - [id number] Start: 01-06-2016 Clip Sugita 7mm Mini Titanium 2 6mm Aneurysm Straight Nonsterile - [id number] Start: 01-06-2016 Clip Aneurysm Ti i 10.5 Str 10mm - [id number] Start: 01-06-2016 Cover 14mm Low P rofile Titanium Alma Delia Hole Tab 1.5mm Screw Nonsterile - [id number] Start: 01-06-2016 Cover 10mm Mediu m Titanium Alma Delia Hole Low Profile Tab 1.5mm Screws - [id number] Start: 01-06-2016 Cover 20mm Titan ium Alma Delia Hole Low Profile Tab Craniomaxillofacial - [id number] Start: 01-06-2016 Plate 2y Micro L ow Profile 8mm Bone 6 Hole Bar Cranium - [id number] Start: 01-06-2016 Screw 1.5mm 4mm Bone Self Drill Cross Pin Craniomaxillofacial - [id number] Start: 01-06-2016 Screw 1.5mm 4mm Bone Self Drill Cross Pin Craniomaxillofacial - [id number] Start: 01-06-2016 Functional Status Date Assessment Result Facility 01-15-2016 Are you deaf, or do you have serious difficulty hearing No 01/15/2016 7:21 PM EDT Flaca Greer RN No [facility] 01-15-2016 Are you blind, or do you have serious difficulty seeing, even when wearing glasses No 01/15/2016 7:21 PM EDT Flaca Greer RN No [facility] 01-15-2016 Do you have serious difficulty walking or climbing stairs No 01/15/2016 7:21 PM EDT Flaca Greer RN No [facility] 01-15-2016 Do you have difficul ty dressing or bathing No 01/15/2016 7:21 PM EDT Flaca Greer RN No [facility] 01-15-2016 Because of a physica l, mental, or emotional condition, do you have difficulty doing errands alone such as visiting a physician's office or shopping No 01/15/2016 7:21 PM EDT Flaca Greer RN No [facility] Mental Status Date Assessment Result Facility 01-15-2016 Because of a physica l, mental, or emotional condition, do you have serious difficulty concentrating, remembering, or making decisions No 01/15/2016 7:21 PM EDT Flaca Greer RN No [facility] Clinical Notes 11-25-2021 to 02-21-2025 Raven Tan APRN.STEEL RIGGER - 02/21/2025 4:11 PM EDTTelephone Encounter - Renee Perez MA - 01/28/2025 3:48 PM EDTTelephone Encounter - Renee Perez MA - 01/28/2025 3:48 PM EDT Note Date & Type Note Facility 02-21-2025 Radiology Diagnostic study note [facility] Imaging Services [address] [place] [address] Chest 1 View MR#: [id number] Acct: [id number] Name: KARLI DUKE Rep #: [id number] : [id number] M 59 From: Alex Calzada MD PCP: Dr. Alberto Avelar MD Status: RE G ER Study:Chest 1 View Date of Exam: 5 Exam# [id number] Ordering Dr: Stefanie Leslie PROCEDURE: CHEST 1 VIEW 02/21/2025 REASON FOR EXAM: SOB TECHNIQUE: Frontal view of the chest. COMPARISON: 07/20/2019 FINDINGS: Hardware: None. Heart: The heart size is normal. Lungs: Bibasilar consolidation and atelectasis. Trace right and small left pleural effusions. No definite pneumothorax. Bones: The bones are unremarkable. RAD/Chest 1 View IMPRESSION: 1. Bibasilar consolidation and atelectasis. 2. Trace right and small left pleural effusions. Reading Location: [facility] CC: Dr. Alberto Avelar MD; CHRISTIANE Mckeon ~ Supervisor Pipelines: Signed [facility] 02-21-2025 History of Presen t illness Narrative URGENT CARE [facility] Karli Duke is a 59 year old male. Patient presents with: Shortness of Breath: Pt is pursed lip breathing, Shortness of Breath, wheeze, x 2-3 weeks Shortness of Breath The patient is a 59-year-old male with a history of pulmonary issues, presenting with dyspnea. Dyspnea: - Experiencing difficulty breathing. - Concerns about low O2 concentration from current oxygen source; believes a new device is needed. - Messaged pulomonogist, who needs evaluated significantly has worsened the last couple of days he stage 4 COPD. Review of Systems Respiratory: Positive for shortness of breath. Respiratory: (+) shortness of breath Psychiatric: (+) anxiety Objective Physical Exam Constitutional: Appearance: He is toxic-appearing and diaphoretic. He is not ill-appearing. Cardiovascular: Rate and Rhythm: Tachycardia present. Pulmonary: Breath sounds: Wheezing (Pursed lip breathing) present. Musculoskeletal: Right lower leg: Edema present. Left lower leg: Edema present. { 1. Hypoxemia (R09.02) 2. Acute respiratory distress (R06.03) - Severe hypoxemia and respiratory distress with abnormal vital signs (elevated BP, tachycardia, low SpO2) and visible respiratory effort. - Reviewed pulmonology notes. - Advised that outpatient management is not appropriate due to severity; patient requires further workup and likely admission. - Instructed patient to go to the ER immediately for further evaluation, including imaging and lab work. Declines Squad transport, and to transport him to [facility]. and Recording using [employer] software for draft documentation of the visit was discussed with the patient/authorized manufacturers service representative; all questions welcomed and answered. Patient/authorized manufacturers service representative agreed to proceed MDM Patient has significant complex medical history Stage 4 COPD, 2 liters at baseline. Patient presents with pursed lip breathing, bilateral leg swelling, and abnormal vitals pt triaged to ER, declines squad transport to take him to [facility]. documented in this encounter [facility] 01-28-2025 Telephone encounter Note Advised pt via mychart that he needs an appointment to evaluate swelling. Renee Perez MA [facility] 01-28-2025 Miscellaneous Notes Advised pt via mychart that he needs an appointment to evaluate swelling. Renee Perez MA documented in this encounter [facility] 01-21-2025 Telephone encounter Note Patient phones requesting refills as follows: THOMAS 07/30/24 Requested Prescriptions Pending Prescriptions Disp Refills fluticasone iarytyp-wnhneqkacniv-ixrrwrovkj (TRELEGY ELLIPTA) 200-62.5-25 mcg powder inhaler 180 each 3 Sig: Inhale 1 puff as instructed once daily. Please review and advise. Yulisa Keith LPN [facility] 01-21-2025 Miscellaneous Notes Patient phones requesting refills as follows: THOMAS 07/30/24 Requested Prescriptions Pending Prescriptions Disp Refills fluticasone fhwnaaf-peggsbfutwza-dxiuaspfje (TRELEGY ELLIPTA) 200-62.5-25 mcg powder inhaler 180 each 3 Sig: Inhale 1 puff as instructed once daily. Please review and advise. Yulisa Keith LPN documented in this encounter [facility] 01-15-2025 Telephone encounter Note The following approved medication requests have been transmitted electronically. Requested Prescriptions Pending Prescriptions Disp Refills traZODone (DESYREL) 50 mg tablet 90 tablet 1 Sig: Take 1 tablet by mouth daily at bedtime. Gurmeet Tao APRN.STACY [facility] 01-15-2025 Miscellaneous Notes The following approved medication requests have been transmitted electronically. Requested Prescriptions Pending Prescriptions Disp Refills traZODone (DESYREL) 50 mg tablet 90 tablet 1 Sig: Take 1 tablet by mouth daily at bedtime. Gurmeet Tao APRN.CNP Prescription Refill Information The patient [...] 2025 1:59 PM documented in this encounter [facility] 01-15-2025 Telephone encounter Note Prescription Refill [...] Pat LPN January 15, 2025 1:59 PM [facility] 01-07-2025 Telephone encounter Note Attempted to contact patient. Left detailed voicemail offering afternoon appointment today. Yulisa Keith LPN [facility] 01-07-2025 Miscellaneous Notes Attempted to contact patient. Left detailed voicemail offering afternoon appointment today. Yulisa Keith LPN documented in this encounter [facility] 11-28-2024 Telephone encounter Note Pt returned my phone call and is feeling much better. He agrees with the 3 month follow up. He should follow up with pulmonology or myself if he is having any issues in the interim. He will check My Chart for his appointments. Nathalie Mojica APRN.STEEL RIGGER [facility] 11-28-2024 Miscellaneous Notes Pt returned my [...] findings I reviewed his case with his program lead and we are recommending a 3 month follow up. Nathalie Mojica APRN.CNP November 28, 2024 12:35 PM documented in this encounter [facility] 11-28-2024 Telephone encounter Note Left message for pt to call back regarding results. Plan to discuss CT Results Stable lung nodules. Multifocal infectious inflammatory disease. Recommendations: He was treated with levaquin and prednisone. For lung nodule follow up 12 months would be recommended. However, with the infectious inflammatory findings I reviewed his case with his program lead and we are recommending a 3 month follow up. Nathalie Mojica APRN.CNP November 28, 2024 12:35 PM [facility] 11-27-2024 Telephone encounter Note THOMAS: 10/18/24 with Mily Tapia Future OV: Visit date not found Patient requests via Yaphiehart refills as follows: Requested Prescriptions Pending Prescriptions Disp Refills pantoprazole DR (PROTONIX) 40 mg tablet 90 tablet 3 Sig: Take 1 tablet by mouth every afternoon. Please review and advise. Claudia Dean RN [facility] 11-27-2024 Miscellaneous Notes THOMAS: 10/18/24 with Mily Click Future OV: Visit date not found Patient requests via MyChart refills as follows: Requested Prescriptions Pending Prescriptions Disp Refills pantoprazole DR (PROTONIX) 40 mg tablet 90 tablet 3 Sig: Take 1 tablet by mouth every afternoon. Please review and advise. Claudia Dean RN documented in this encounter [facility] 11-18-2024 Instructions Nathalie Mojica APRN.CNP - [...] prednisone and levaquin today. Follow up with program lead if any new or unresolving symptoms. If you are feeling worse please go to the emergency room. We will follow up on the CT Scan in 2-3 months. documented in this encounter [facility] 11-18-2024 History of Presen t illness Narrative Images from the original note were not included. [facility] INCIDENTAL LUNG NODULE PROGRAM Impression / Recommendations 1. Lung nodules (Primary) JANNET nodule of concern is resolved. All other nodules are small and stable. There are new inflammatory opacities in RML, RLL, and LLL. 2. Nicotine Dependence, Former: Continue to abstain from smoking cigarettes. 3. Stage 4 very severe COPD by GOLD classification (HCC) Continue to follow up with program lead. On supplemental oxygen, Trelegy and singulair daily. Take prednisone and levaquin starting today. Reviewed instructions for nebulizers and albuterol use. Recommended Duoneb every 6 hours and budesonide nebulizer twice daily for the next few days then can transition to as needed. He may use albuterol inhaler every 4 hours in coordination with duoneb doses. Follow up with program lead if any new or continued symptoms. If [...] images. Pt had interval CTA Chest at [facility] 07/20/2024 and the JANNET 5 mm nodule [...] 74.8 kg (165 lb)] Modified Medical Research [place] Dyspnea Scale (MMRC) I am too breathless [...] DATE OF EXAM: May 20 2024 11:37AM [facility] 0541 - CT CHEST WO IVCON / [...] few additional stable scattered pulmonary nodules with manufacturers service representative measurements as follows. Stable 4 mm [...] right upper lobe groundglass opacity appear stable. Supervisor Pipelines: FABIANA Transcribe Date/Time: May 22 2024 12:58P [...] FEV1/FVC PRE (%) % 26 27 29 KYG81-93% PRE (L/S) L/S 0.16 0.19 0.19 PEF [...] Lung Nodule Surveillance Lung Nodule Program Location: [facility] documented in this encounter [facility] 11-18-2024 Note HNO ID: [id number] Author: NATHALIE MOJICA APRN.CNP Service: ? Author Type: Nurse Practitioner Type: Progress Notes Filed: 11/18/2024 13:24 Note Text: [facility] INCIDENTAL LUNG NODULE PROGRAM Impression / Recommendations 1. Lung nodules (Primary) JANNET nodule of concern is resolved. All other nodules are small and stable. There are new inflammatory opacities in RML, RLL, and LLL. 2. Nicotine Dependence, Former: Continue to abstain from smoking cigarettes. 3. Stage 4 very severe COPD by GOLD classification (HCC) Continue to follow up with program lead. On supplemental oxygen, Trelegy and singulair daily. Take prednisone and levaquin starting today. Reviewed instructions for nebulizers and albuterol use. Recommended Duoneb every 6 hours and budesonide nebulizer twice daily for the next few days then can transition to as needed. He may use albuterol inhaler every 4 hours in coordination with duoneb doses. Follow up with program lead if any new or continued symptoms. If [...] images. Pt had interval CTA Chest at [facility] 07/20/2024 and the JANNET 5 mm nodule [...] 74.8 kg (165 lb)] Modified Medical Research [place] Dyspnea Scale (MMRC) I am too breathless [...] 20 2024 11:37AM (more content not included)... [facility] 11-18-2024 History of Presen t illness Narrative [...] PATIENT PRESENTS WITH AN IMPLANTABLE OR ATTACHED CASE FINISHER: No RADIOLOGY DEPARTMENT: CT; Exam(s) Completed: Chest PERIPHERAL IV DATA: Not applicable SIGNED BY: RT Oralia(Margoth) November 18, 2024 12:30 PM documented in this encounter [facility] 11-18-2024 Note HNO ID: [id number] Author: RENEE ENNIS RT(Margoth) Service: ? Author Type: Tile Grader Type: Progress Notes Filed: 11/18/2024 12:30 Note [...] PATIENT PRESENTS WITH AN IMPLANTABLE OR ATTACHED CASE FINISHER: No RADIOLOGY DEPARTMENT: CT; Exam(s) Completed: Chest PERIPHERAL IV DATA: Not applicable SIGNED BY: RT Oralia(R) November 18, 2024 12:30 PM [facility] 11-17-2024 Telephone encounter Note Reason for Call: [...] or WORSE than normal Protocols used: Breathing Bpwgfkaioo-VFMAZ-ZT [facility] 11-17-2024 Miscellaneous Notes Reason for Call: [...] or WORSE than normal Protocols used: Breathing Ovrwirbrqr-JUYYX-MU documented in this encounter [facility] 11-01-2024 History of Presen t illness Narrative Telemedicine Visit - Distance Health Virtual Visit Note Patient seen on Spoondate Video Visit platform. Location of patient: [place] I have communicated my name and active licensure. The patient's identity and physical location were verified at the time of this visit. Either the patient or their legal manufacturers service representative has been informed of the risks [...] Other and unspecified hyperlipidemia SAH (subarachnoid hemorrhage) ([facility]) Sleep apnea Tobacco abuse Quit 2015. PAST SURGICAL HISTORY Procedure Laterality Date COLONOSCOPY FLX DX W/COLLJ SPEC WHEN PFRMD 04/10/2019 Colonoscopy OTHER ANEURYSM REPAIR 01/04/2017 [facility] PAST SURGICAL HISTORY OF cyst on [...] 1 tablet by mouth daily at bedtime. keuhqyvnorj-lczgiislj-qodpyguj (TRELEGY ELLIPTA) 200-62.5-25 mcg inhalation powder Inhale [...] Gurmeet Tao APRN.STACY documented in this encounter [facility] 11-01-2024 Note HNO ID: [id number] Author: GURMEET TAO APRN.STEEL RIGGER Service: ? Author Type: Nurse Practitioner Type: Progress Notes Filed: 11/01/2024 11:40 Note Text: Telemedicine Visit - Distance Health Virtual Visit Note Patient seen on Spoondate Video Visit platform. Location of patient: [place] I have communicated my name and active licensure. The patient's identity and physical location were verified at the time of this visit. Either the patient or their legal manufacturers service representative has been informed of the risks [...] PFRMD 04/10/2019 Colonoscopy OTHER ANEURYSM REPAIR 01/04/2017 [facility] PAST SURGICAL HISTORY OF cyst on [...] 1 tablet by mouth daily at bedtime. jevjhgpowuq-droojwrdz-psysenqj (TRELEGY ELLIPTA) 200-62.5-25 mcg inhalation powder Inhale [...] pleasant, in NAD (more content not included)... [facility] 10-28-2024 Telephone encounter Note Called patient regarding pulmonary rehab program. Patient answered and stated that they will give me a call back when they are interested. Patient has my phone number to call me back. [phone] [facility] 10-28-2024 Miscellaneous Notes Called patient regarding pulmonary rehab program. Patient answered and stated that they will give me a call back when they are interested. Patient has my phone number to call me back. [phone] documented in this encounter [facility] 10-21-2024 Telephone encounter Note Called patient regarding pulmonary rehab program. Patient did not answer, so I left a message on voicemail with instructions on how to contact me. [phone] [facility] 10-21-2024 Miscellaneous Notes Called patient regarding pulmonary rehab program. Patient did not answer, so I left a message on voicemail with instructions on how to contact me. [phone] documented in this encounter [facility] 10-18-2024 History of Presen t illness Narrative VIRTUAL VISIT PROGRESS NOTE This is a virtual visit using [employer] Zoom Video Visit. It required patient-provider interaction for the medical decision making as documented below. I have communicated my name and active licensure. The patient's identity and physical location were verified at the time of this visit. Either the patient or their legal manufacturers service representative has been informed of the risks [...] PFRMD 04/10/2019 Colonoscopy OTHER ANEURYSM REPAIR 01/04/2017 [facility] PAST SURGICAL HISTORY OF cyst on [...] 1 tablet by mouth daily at bedtime. cxoyjteyjhj-iiecspyyi-oxkwmmco (TRELEGY ELLIPTA) 200-62.5-25 mcg inhalation powder Inhale [...] which included preparing to see the patient, artk-yc-xuan patient care, completing clinical documentation, performing a medically appropriate examination, counseling and educating the patient/family/caregiver, and ordering medications, tests, or procedures Mily Tapia APRN.STACY documented in this encounter [facility] 10-18-2024 Note HNO ID: [id number] Author: MILY TAPIA APRN.CNP Service: ? Author Type: Nurse Practitioner Type: Progress Notes Filed: 10/18/2024 13:32 Note Text: VIRTUAL VISIT PROGRESS NOTE This is a virtual visit using [employer] Zoom Video Visit. It required patient-provider interaction for the medical decision making as documented below. I have communicated my name and active licensure. The patient's identity and physical location were verified at the time of this visit. Either the patient or their legal manufacturers service representative has been informed of the risks [...] PFRMD 04/10/2019 Colonoscopy OTHER ANEURYSM REPAIR 01/04/2017 [facility] PAST SURGICAL HISTORY OF cyst on [...] 1 tablet by mouth daily at bedtime. qsnccghofkd-pnqytonmf-zfhwbibc (TRELEGY ELLIPTA) 200-62.5-25 mcg inhalation powder Inhale [...] pain, no palpitat (more content not included)... [facility] 08-05-2024 Telephone encounter Note Pt was ordered two weeks of Lasix 20 mg while in Hospital. Is he supposed to continue this or d/c. Was seen in office on 08/01/24. Please advise. Abida Khan MA [facility] 08-05-2024 Miscellaneous Notes Pt was ordered two weeks of Lasix 20 mg while in Hospital. Is he supposed to continue this or d/c. Was seen in office on 08/01/24. Please advise. Abida Khan MA documented in this encounter [facility] 08-01-2024 Instructions Renee Perez MA - 08/01/2024 10:24 AM EST Continue with Buspar 10 mg as directed for the anxiety. Use Trazodone 50 mg at bedtime as needed for sleep. Once you know what company you want to use for the motorized scooter, have the company fax paperwork to our office at [phone]. documented in this encounter [facility] 08-01-2024 History of Presen t illness [...] distances due to his SOB and COPD. [facility] Hospital d/c summary: Discharge Diagnosis (1) COPD [...] Mucinex and levofloxacin. Advised follow-up he is program lead Dr. Millie Sánchez in 2 weeks. 2. [...] Past Histories independently gathered by the clinical support services manager and the remaining scribed note accurately describes my personal service to the patient. Alberto Avelar MD The documentation for this note was completed by Renee Perez MA acting as scribe for Alberto Avelar MD. August 01, 2024 10:10 AM. Renee Perez MA documented in this encounter [facility] 08-01-2024 Note HNO ID: [id number] Author: ALBERTO AVELAR MD Service: ? Author [...] distances due to his SOB and COPD. [facility] Hospital d/c summary: Discharge Diagnosis (1) COPD [...] bilateral pneumonia: [facility]-ray and CTPA initially [...] Mucinex and levofloxacin. Advised follow-up he is program lead Dr. Millie Sánchez in 2 weeks. 2. [...] Antigen - Final (more content not included)... [facility] 08-01-2024 Telephone encounter Note h [facility] 08-01-2024 Miscellaneous Notes h documented in this encounter [facility] 07-30-2024 Instructions Mily Tapia APRN.CNP - 07/30/2024 1:22 PM EST Chest xray today. If Pneumonia has not resolved, will continue antibiotics. Tessalon Perles and Mucinex as needed. An order for the nebulizer will be sent to [facility]. documented in this encounter [facility] 07-30-2024 Note HNO ID: [id number] Author: MILY TAPIA APRN.CNP Service: ? Author [...] albuterol. He presents today for hospital follow-up. [facility] 02/29/2024 with relatively stable respiratory symptoms. [...] rhinitis Asthma COPD (chronic obstructive pulmonary disease) ([facility]) Very severe Dependence on continuous supplemental oxygen Other and unspecified hyperlipidemia SAH (subarachnoid hemorrhage) ([facility]) Sleep apnea Tobacco abuse Quit 2015. Allergies: [...] tablet by mouth three times a day. pkphuvtnvkz-tvgsakcgh-odemswlx 200-62.5-25 mcg inhalation powder Commonly known as: [...] right upper lobe groundglass opacity appear stable. Supervisor Pipelines: FABIANA Transcribe Date/Time: May 22 2024 12:58P Dictated by : BIBI BOWER MD This examination was interpreted and the report reviewed and electronically signed by: BIBI BOWER MD on May 22 2024 1:04PM EST Results-Findings * * *Final Report* * * DATE OF EXAM: May 20 2024 11:37AM [facility] 0541 - CT CHEST WO IVCON / PROCEDURE REASON: Lung nodules * * * * Physician Interpretation * * * * EXAMINATION: CHEST CT WITHOUT CONTRAST CLINICAL HISTORY: Follow-up lung nodules Technique: Spiral CT acquisition of the chest from the thoracic inlet to the upper abdomen without contrast. MQ: [id number] CT Radiation dose: Integrated Dose-length product (DLP) for thi (more content not included)... [facility] 07-30-2024 History of Presen t illness Narrative [...] albuterol. He presents today for hospital follow-up. [facility] 02/29/2024 with relatively stable respiratory symptoms. [...] rhinitis Asthma COPD (chronic obstructive pulmonary disease) ([facility]) Very severe Dependence on continuous supplemental oxygen Other and unspecified hyperlipidemia SAH (subarachnoid hemorrhage) ([facility]) Sleep apnea Tobacco abuse Quit 2016. Allergies: Codeine Unknown Mold Other: See Comments [...] tablet by mouth three times a day. bfahhfptrcu-zdrmjxpas-ftvesdwp 200-62.5-25 mcg inhalation powder Commonly known as: [...] right upper lobe groundglass opacity appear stable. Supervisor Pipelines: FABIANA Transcribe Date/Time: May 22 2024 12:58P Dictated by : BIBI BOWER MD This examination was interpreted and the report reviewed and electronically signed by: BIBI BOWER MD on May 22 2024 1:04PM EST Results-Findings * * *Final Report* * * DATE OF EXAM: May 20 2024 11:37AM [facility] 0541 - CT CHEST WO IVCON / [...] few additional stable scattered pulmonary nodules with manufacturers service representative measurements as follows. Stable 4 mm [...] and Levaquin - chest xray requested from [facility] - repeat chest xray today to ensure resolution of pneumonia. Symptomatically improved. - XR CHEST 2V FRONTAL/LAT 3. Stage 4 very severe COPD by GOLD classification (HCC) - ICD9: 496, ICD10: J44.9 - continue Trelegy Ellipta daily - Albuterol as needed - will add Duoneb PRN, orders to be sent to [facility] [place] - NEBULIZER, WITH COMPRESSOR - NEBULIZER ACCESSORIES [...] which included preparing to see the patient, bzjb-al-wbll patient care, completing clinical documentation, performing a medically appropriate examination, counseling and educating the patient/family/caregiver, and ordering medications, tests, or procedures. documented in this encounter [facility] 07-23-2024 Note HNO ID: [id number] Author: ALBERTO AVELAR MD Service: ? Author Type: Physician Type: Progress Notes Filed: 07/23/2024 16:51 Note Text: Noted Alberto Avelar MD [facility] 07-23-2024 History of Presen t illness Narrative Noted Alberto Avelar MD TRANSITION CARE MANAGEMENT (TCM) INITIAL CONTACT Power Press Tender Outreach Provider Action/FYI: Pt wrote into the office via Buggl regarding recent hospital admission for pneumonia. Sent [...] patient post discharge, spoke to patient, via Buggl. Patient identified by name and . TRANSITION CARE MANAGEMENT INITIAL OUTREACH DOCUMENTATION: 07/23/2024 Date of Outreach: Outreach Attempt 1: Contact Made Date of Discharge 07/22/2024 SUMMARY: -Pt discharged from [facility] on 07/22/24. -Admitted for: Discharge Diagnosis (1) [...] Mucinex and levofloxacin. Advised follow-up he is program lead Dr. Millie Sánchez in 2 weeks. 2. [...] Urine, Clean Catch Legionella Antigen - Final 01/18/25 23:35 Urine, Clean Catch Streptococcus pneumoniae Antigen [...] Yes Medical records from recent hospitalization: Care Everywhere/[facility]. Abida Khan MA documented in this encounter [facility] 07-23-2024 Telephone encounter Note Pt agreeable to appt's as scheduled. Abida Khan MA [facility] 07-23-2024 Miscellaneous Notes Pt agreeable to [...] Abida Khan MA documented in this encounter [facility] 07-23-2024 Telephone encounter Note Pt was already scheduled with PCP on 07/30/24. Advised pt to keep appt with PCP and Pulmonary as scheduled. Completed TCM note and routed to PCP. Abida Khan MA [facility] 07-23-2024 Note HNO ID: [id number] Author: ABIDA KHAN MA Service: ? Author Type: Power Press Tender Type: Progress Notes Filed: 07/23/2024 16:51 Note Text: TRANSITION CARE MANAGEMENT (TCM) INITIAL CONTACT Power Press Tender Outreach Provider Action/FYI: Pt wrote into the office via Buggl regarding recent hospital admission for pneumonia. Sent [...] patient post discharge, spoke to patient, via Buggl. Patient identified by name and . TRANSITION CARE MANAGEMENT INITIAL OUTREACH DOCUMENTATION: 07/23/2024 Date of Outreach: Outreach Attempt 1: Contact Made Date of Discharge 07/22/2024 SUMMARY: -Pt discharged from [facility] on 07/22/24. -Admitted for: Discharge Diagnosis (1) [...] Mucinex and levofloxacin. Advised follow-up he is program lead Dr. Millie Sánchez in 2 weeks. 2. [...] taking your medicatio (more content not included)... [facility] 07-23-2024 Telephone encounter Note Starting TCM process as pt reached out to office about hospital visit. Per d/c pt to f/u with PCP's office in 1-2 weeks. Abida Khan MA [facility] 07-23-2024 Note Patient Outreach (FA MPWS) KARLI DUKE ([id number]) 1965 M Date Time Provider Department 07/23/24 ALBERTO AVELAR During your visit today, we recorded the following information about you: Abida Khan MA 07/23/2024 4:51 PM Signed TRANSITION CARE MANAGEMENT (TCM) INITIAL CONTACT Power Press Tender Outreach Provider Action/FYI: Pt wrote into the office via Buggl regarding recent hospital admission for pneumonia. Sent [...] patient post discharge, spoke to patient, via Buggl. Patient identified by name and . TRANSITION CARE MANAGEMENT INITIAL OUTREACH DOCUMENTATION: 07/23/2024 Date of Outreach: Outreach Attempt 1: Contact Made Date of Discharge 07/22/2024 SUMMARY: -Pt discharged from [facility] on 07/22/24. -Admitted for: Discharge Diagnosis (1) [...] Mucinex and levofloxacin. Advised follow-up he is program lead Dr. Millie Sánchez in 2 weeks. 2. [...] Lasix 20 mg (more content not included)... [facility] 07-22-2024 Note [facility] Medical Records Department [address] [place] [address] Discharge Summary 07/22/24 0948 MR#: [id number] Acct: [id number] Name: KARLI DUKE Rep #: [id number] : 1965 58 From: Colton Gandhi MD PCP: Dr. Alberto Avelar MD Status:ADM [id number] Providers Date of Admission: 07/20/24 Date of [...] Mucinex and levofloxacin. Advised follow-up he is program lead Dr. Millie Sánchez in 2 weeks. 2. [...] He does not have daycare power of estate planning attorney for health. His presented ED is [...] 91.9 H, Lymph % (Auto) 4.9 L, [place] % (Auto) 2.6, Eos % (Auto) 0.0, [...] CTA chest examination, (more content not included)... [facility] 07-02-2024 Telephone encounter Note Pt should have appt to discuss need for mobility chair. Notified of this via Buggl. Renee Perez MA [facility] 07-02-2024 Miscellaneous Notes Pt should have appt to discuss need for mobility chair. Notified of this via Buggl. Renee Perez MA documented in this encounter [facility] 06-21-2024 Telephone encounter Note Called patient. C/o increased chest congestion and tightness with cough. Able to produce dark green sputum- difficulty catching breath after coughing. Occasional wheezing. He has these sx frequently, but he reports they often resolve after 1-2 days. He has noticed the increase in sx for the last 4 days. Denies fever, chills, myalgias, headaches. [facility] is preferred. THOMAS 02/29/24 Yulisa Keith LPN [facility] 06-21-2024 Miscellaneous Notes Called patient. C/o increased chest congestion and tightness with cough. Able to produce dark green sputum- difficulty catching breath after coughing. Occasional wheezing. He has these sx frequently, but he reports they often resolve after 1-2 days. He has noticed the increase in sx for the last 4 days. Denies fever, chills, myalgias, headaches. [facility] is preferred. [facility] 02/29/24 Yulisa Keith LPN documented in this encounter [facility] 06-21-2024 Telephone encounter Note Please see melanie message. [facility] 06-21-2024 Miscellaneous Notes Please see melanie message. documented in this encounter [facility] 06-18-2024 History of Presen t illness Narrative Telemedicine Visit - Distance Health Virtual Visit Note Patient seen on Spoondate Video Visit platform. Location of patient: [place] I have communicated my name and active licensure. The patient's identity and physical location were verified at the time of this visit. Either the patient or their legal manufacturers service representative has been informed of the risks [...] the building. He likes going to the [facility] building as they have closer parking, wheelchairs. [...] PFRMD 04/10/2019 Colonoscopy OTHER ANEURYSM REPAIR 01/04/2017 [facility] PAST SURGICAL HISTORY OF cyst on [...] 1 tablet by mouth daily at bedtime. rcdhmaansbd-tudhymozy-fovsrbwc (TRELEGY ELLIPTA) 200-62.5-25 mcg inhalation powder Inhale [...] needs to be seen yearly. Gurmeet Tao APRN.CNP documented in this encounter [facility] 06-18-2024 Note HNO ID: [id number] Author: GURMEET TAO APRN.CNP Service: ? Author Type: Nurse Practitioner Type: Progress Notes Filed: 06/18/2024 13:44 Note Text: Telemedicine Visit - Distance Health Virtual Visit Note Patient seen on [employer] Video Visit platform. Location of patient: [place] I have communicated my name and active licensure. The patient's identity and physical location were verified at the time of this visit. Either the patient or their legal manufacturers service representative has been informed of the risks [...] the building. He likes going to the [facility] building as they have closer parking, wheelchairs. [...] PFRMD 04/10/2019 Colonoscopy OTHER ANEURYSM REPAIR 01/04/2017 [facility] PAST SURGICAL HISTORY OF cyst on [...] 1 tablet by mouth daily at bedtime. qjkyzngtwyn-evwyjwuth-vqvtmwgy (TRELEGY ELLIPTA) 200-62.5-25 mcg inhalation powder Inhale [...] needs to be seen yearly. Gurmeet Tao APRN.CNP [facility] 06-17-2024 Telephone encounter Note Please let the patient know that I sent in. The following approved medication requests have been transmitted electronically. Requested Prescriptions Pending Prescriptions Disp Refills busPIRone (BUSPAR) 10 mg tablet 90 tablet 0 Sig: Take 1 tablet by mouth three times a day. Gurmeet Tao APRN.CNP [facility] 06-17-2024 Miscellaneous Notes Please let the [...] [facility] documented in this encounter [facility] 06-17-2024 Telephone encounter Note Patient is overdue for an appointment. Call to patient, scheduled him for 06/18/2024. Patient is needing called in today if possible. Please review and advise. [facility] 06-17-2024 Telephone encounter Note Patient is calling to check on the Buspirone refill as he has been out since last . He stated it first went to Pulmonary instead of Dr. Ascencio. He is asking for this to please be expedited today to his [facility],. [facility] 06-17-2024 Telephone encounter Note Request sent to PCP Yulisa Keith LPN [facility] 06-17-2024 Miscellaneous Notes Request sent to PCP Yulisa Keith LPN documented in this encounter [facility] 06-17-2024 Telephone encounter Note .rxrefill [facility] 05-27-2024 Telephone encounter Note Spoke with patient and the following results were discussed: CT Chest Results slight increase in JANNET nodule previously 3 mm, now 5 mm Reviewed case with Dr. Ayala Recommendations: 6 month follow up Patient verbalized understanding of the results and had no other questions or concerns at this time. Nathalie Mojica APRN.CNP May 27, 2024 2:27 PM [facility] 05-27-2024 Miscellaneous Notes Spoke with patient and [...] 2024 2:27 PM documented in this encounter [facility] 05-21-2024 Instructions Nathalie Mojica APRN.CNP - [...] small number of people the nodule may return to service inspector to be an early cancer. Your doctor [...] cancer? Fewer than 5% of all nodules return to service inspector to be cancer What if my nodule [...] THAT IS WRONG. documented in this encounter [facility] 05-20-2024 Note HNO ID: [id number] Author: NATHALIE MOJICA APRN.STACY Service: ? Author Type: Nurse Practitioner Type: Progress Notes Filed: 05/21/2024 08:26 Note Text: [facility] INCIDENTAL LUNG NODULE PROGRAM (Follow Up) [...] classification (HCC) Continue close follow up with program lead Dr. Silva Sánchez. Follow Up Follow Up Diagnosis: Lung Nodule Recommendation: CT Scan Follow up Date: 10/31/2024 Follow-Up Scheduled: No Pulmonary Follow-Up Type: Lung Nodule Surveillance Enrolled in Lung Nodule program: Yes Lung Nodule Program Location: [facility] Please enter a follow up date: 10/2024 --- History of Present Illness Karli Duke is a 58 year old male with a pertinent past medical history significant for Former smoker: (>30 pack-years, 8 years since quit) who is being seen as a follow up for evaluation of a lung nodule(s). Karli Duek initially presented to nodule clinic after they [...] 73.9 kg (163 lb)] Modified Medical Research [place] Dyspnea Scale (MMRC) I am too breathless [...] DATE OF EXAM: Apr 24 2023 12:10PM [facility] 0541 - CT CHEST WO IVCON / [...] assessment. No monica (more content not included)... [facility] 05-20-2024 History of Presen t illness Narrative Images from the original note were not included. [facility] INCIDENTAL LUNG NODULE PROGRAM (Follow Up) [...] classification (HCC) Continue close follow up with program lead Dr. Silva Sánchez. Follow Up Follow Up Diagnosis: Lung Nodule Recommendation: CT Scan Follow up Date: 10/31/2024 Follow-Up Scheduled: No Pulmonary Follow-Up Type: Lung Nodule Surveillance Enrolled in Lung Nodule program: Yes Lung Nodule Program Location: [facility] Please enter a follow up date: 10/2024 [...] 73.9 kg (163 lb)] Modified Medical Research [place] Dyspnea Scale (MMRC) I am too breathless [...] DATE OF EXAM: Apr 24 2023 12:10PM [facility] 0541 - CT CHEST WO IVCON / [...] Hepatic steatosis. Atherosclerotic calcification of the vasculature. Complaints Coordinator (topogram) images: No additional findings. Latest Ref Rng & Units 03/31/2021 03/04/2022 08/29/2023 Spirometry Data FVC PRE (L) L 2.60 2.59 2.21 FEV1 PRE (L) L 0.76 0.69 0.57 FEV1/FVC PRE (%) % 29 27 26 ZSH36-09% PRE (L/S) L/S 0.19 0.19 0.16 PEF [...] 2024 11:39 AM documented in this encounter [facility] 05-20-2024 History of Presen t illness [...] PATIENT PRESENTS WITH AN IMPLANTABLE OR ATTACHED CASE FINISHER: No RADIOLOGY DEPARTMENT: CT; Exam(s) Completed: Chest PERIPHERAL IV DATA: Not applicable SIGNED BY: KARL Barton) May 20, 2024 11:39 AM documented in this encounter [facility] 05-20-2024 Note HNO ID: [id number] Author: RENEE ENNIS RT(R) Service: ? Author Type: Tile Grader Type: Progress Notes Filed: 05/20/2024 11:39 Note [...] PATIENT PRESENTS WITH AN IMPLANTABLE OR ATTACHED CASE FINISHER: No RADIOLOGY DEPARTMENT: CT; Exam(s) Completed: Chest PERIPHERAL IV DATA: Not applicable SIGNED BY: RT Oralia(R) May 20, 2024 11:39 AM [facility] 05-15-2024 Telephone encounter Note Patient phones requesting refills as follows: THOMAS: 02/29/24 Requested Prescriptions Pending Prescriptions Disp Refills montelukast (SINGULAIR) 10 mg tablet 90 tablet 3 Sig: Take 1 tablet by mouth daily at bedtime. Please review and advise. Yulisa Keith LPN [facility] 05-15-2024 Miscellaneous Notes Patient phones requesting refills as follows: THOMAS: 02/29/24 Requested Prescriptions Pending Prescriptions Disp Refills montelukast (SINGULAIR) 10 mg tablet 90 tablet 3 Sig: Take 1 tablet by mouth daily at bedtime. Please review and advise. Yulisa Keith LPN documented in this encounter [facility] 04-10-2024 Telephone encounter Note Prescription Refill [...] Buchanan LPN April 10, 2024 12:27 PM [facility] 04-10-2024 Miscellaneous Notes Prescription Refill Information [...] 2024 12:27 PM documented in this encounter [facility] 02-29-2024 History of Presen t illness Narrative Images from the original note were not included. . [facility] Note Patient name: Karli Duke PCP: Alberto [...] infection nor has he required hospitalization. DME: [facility] 2-3 L DATA: COPD Assessment Test I [...] DATE OF EXAM: Apr 24 2023 12:10PM [facility] 0541 - CT CHEST WO IVCON / [...] No date: COPD (chronic obstructive pulmonary disease) ([facility]) No date: Other and unspecified hyperlipidemia No date: SAH (subarachnoid hemorrhage) ([facility]) No date: Sleep apnea No date: Tobacco abuse Comment: Quit 2015. ALLERGIES Allergen Reactions Codeine Unknown Environmental [Othe* Other: See Comments Molds and grasses as verified by skin testing Vicodin [Hydrocodon* Mental Status Change wkwyyosmirg-egoisqzlz-vrcgtvpe (TRELEGY ELLIPTA) 200-62.5-25 mcg inhalation powder Inhale [...] opacity -Continued abstinence Millie Sánchez MD [facility] [place] documented in this encounter [facility] 02-29-2024 Note HNO ID: [id number] Author: MILLIE SÁNCHEZ MD Service: ? Author Type: Physician Type: Progress Notes Filed: 02/29/2024 17:09 Note Text: . [facility] [place] [facility] [place] Note Patient name: Karli Duke PCP: Alberto [...] infection nor has he required hospitalization. DME: [facility] 2-3 L DATA: COPD Assessment Test I [...] DATE OF EXAM: Apr 24 2023 12:10PM [facility] 0541 - CT CHEST WO IVCON / [...] No date: COPD (chronic obstructive pulmonary disease) ([facility]) No date: Other and unspecified hyperlipidemia No date: SAH (subarachnoid hemorrhage) ([facility]) No date: Sleep apnea No date: Tobacco abuse Comment: Quit 2015. ALLERGIES Allergen Reactions Codeine Unknown Environmental [Othe* Other: See Comments Molds and grasses as verified by skin testing Vicodin [Hydrocodon* Mental Status Change zwbldrjthpp-pnffabtik-vbteqqnc (TRELEGY ELLIPTA) 200-62.5-25 mcg inhalation powder Inhale [...] problems, peripheral wea (more content not included)... [facility] 02-29-2024 Note HNO ID: [id number] Author: PAUL MARTINEZ RPFT Service: ? Author [...] February 29, 2024 TIME: 1:34 PM Comment: [facility] 02-29-2024 Procedure note Associated Ord er(s): OXIMETRY [...] February 29, 2024 TIME: 1:34 PM Comment: [facility] 02-29-2024 Procedure note Associated Ord er(s): [...] 1:34 PM Comment: documented in this encounter [facility] 02-29-2024 Note HNO ID: [id number] Author: PAUL MARTINEZ RPFT Service: ? Author Type: Respiratory Therapist Type: Progress Notes Filed: 02/29/2024 13:35 Note Text: PULM FUNCTION: Provider: Helen Newman PA-C Assisting Tech: Petush, Paul, RPFT Oximetry - Ambulation: 1 [facility] 02-29-2024 History of Presen t illness Narrative PULM FUNCTION: Provider: Helen Newman PA-C Assisting Tech: Petush, Paul, RPFT Oximetry - Ambulation: 1 documented in this encounter [facility] 02-29-2024 Nurse Note Intake information documented in the prior visit with ERICH Bassett today. [facility] 02-29-2024 Nurse Note Intake information documented in the prior visit with ERICH Bassett today. documented in this encounter [facility] 01-29-2024 Telephone encounter Note Patient phones requesting refills as follows: THOMAS 08/29/23 Requested Prescriptions Pending Prescriptions Disp Refills fluticasone rzoxgyy-zievzqklxuyb-ifjaehikuf (TRELEGY ELLIPTA) 200-62.5-25 mcg powder inhaler 180 Each 3 Sig: Inhale 1 Puff as instructed once daily. Please review and advise. Yulisa Keith LPN [facility] 01-29-2024 Miscellaneous Notes Patient phones requesting refills as follows: THOMAS 08/29/23 Requested Prescriptions Pending Prescriptions Disp Refills fluticasone suuibhi-wwjuztnvoztr-iblwnnzutl (TRELEGY ELLIPTA) 200-62.5-25 mcg powder inhaler 180 Each 3 Sig: Inhale 1 Puff as instructed once daily. Please review and advise. Yulisa Keith LPN documented in this encounter [facility] 12-04-2023 Telephone encounter Note Pharmacy escripts requesting the following refill: Requested Prescriptions Pending Prescriptions Disp Refills pantoprazole DR (PROTONIX) 40 mg tablet [Pharmacy Med Name: PANTOPRAZOLE SOD DR 40 MG TAB] 90 tablet 3 Sig: take 1 tablet by mouth every day Please review and advise. SRIKANTH Lujan THOMAS: 08/29/23 (Helen Newman) Future OV: no ov scheduled pfts ordered for 02/29/24 [facility] 12-04-2023 Miscellaneous Notes Pharmacy escripts requesting [...] ordered for 02/29/24 documented in this encounter [facility] 08-29-2023 History of Presen t illness [...] Currently wearing 2L supplemental oxygen continuously. DME: [facility]. PAST MEDICAL HISTORY Diagnosis Date Allergic rhinitis Asthma COPD (chronic obstructive pulmonary disease) ([facility]) Other and unspecified hyperlipidemia SAH (subarachnoid hemorrhage) ([facility]) Sleep apnea Tobacco abuse Quit 2015. Allergies: [...] melatonin 1 mg tablet Take by mouth. fvfzmrhynah-zqhyiutpw-sqzqbmes (TRELEGY ELLIPTA) 200-62.5-25 mcg inhalation powder Inhale [...] PFRMD 04/10/2019 Colonoscopy OTHER ANEURYSM REPAIR 01/04/2017 [facility] PAST SURGICAL HISTORY OF cyst on [...] Helen Newman PA-C documented in this encounter [facility] 08-29-2023 History of Presen t illness Narrative PULM FUNCTION SMARTBLOCK: Provider: Helen Newman PA-C Assisting Tech: Paul Martinez RPFT Spirometry: 1 DLCO: 1 LV - Box: 1 documented in this encounter [facility] 08-29-2023 Nurse Note Intake information documented in the prior visit with ERICH Bassett today. documented in this encounter [facility] 06-15-2023 Miscellaneous Notes Paperwork placed on [employer] desk Helen Lee MA documented in this encounter [facility] 06-14-2023 History of Presen t illness [...] rhinitis Asthma COPD (chronic obstructive pulmonary disease) ([facility]) Other and unspecified hyperlipidemia SAH (subarachnoid hemorrhage) ([facility]) Sleep apnea Tobacco abuse Quit 2015. Allergies: [...] melatonin 1 mg tablet Take by mouth. boaylwmiuyr-pfykwxhql-satbxaym (TRELEGY ELLIPTA) 200-62.5-25 mcg inhalation powder Inhale [...] PFRMD 04/10/2019 Colonoscopy OTHER ANEURYSM REPAIR 01/04/2017 [facility] PAST SURGICAL HISTORY OF cyst on tailbone I reviewed the past medical history, family history, social history and surgical history with changes noted above and updated in EMR. IMMUNIZATIONS Prevnar 2021 Pneumovax 2021 Influenza - 04/11/2023 COVID-19 - most [...] Helen Newman PA-C documented in this encounter [facility] 05-01-2023 Miscellaneous Notes Pt notified of results and recommendations. Plan for [address] Pt agrees. Left message for pt to call back regarding results. New <6 mm nodules and new 1.5 cm ground glass nodule. Case reviewed with Dr. Salvador. Recommendation [address] documented in this encounter [facility] 05-01-2023 Miscellaneous Notes Detailed message left [...] unable to work. Daria Steinberg phone is [phone] ext [phone] Helen Lee MA documented in this encounter [facility] 04-27-2023 Miscellaneous Notes Letter with last office visit notes faxed as requested. Rosalina Christianson MA Disability forms provided to Helen Newman PA-C to complete. Renee Andrade LPN Phone number not working. Will look at disablity forms to possibly find another contact #. Rosalina Christianson MA Cherry called with questions about patients short term disability. Please call Cherry [phone] ext [phone] documented in this encounter [facility] 04-27-2023 Miscellaneous Notes Reviewed paperwork with Dr. Sánchez. Unsure what date patient is referring to. I called patient and he provided me with the following number for [employer]. [phone] ext [phone]. Left a message that we are looking for clarification. Betty documented in this encounter [facility] 04-24-2023 History of Presen t illness [...] 2023 2:40 PM documented in this encounter [facility] 04-18-2023 Miscellaneous Notes The following approved [...] by mouth everyday at bedtime Gurmeet Tao APRN.STEEL RIGGER Last refills 04/25/22 Qty: x 1 year THOMAS 12/01/22 NOV none scheduled Eran Schmidt LPN documented in this encounter [facility] 03-17-2023 Miscellaneous Notes 3rd call attempt, left vm 2nd call attempt, left vm 1st attempt left message to return call to schedule consult for Lung Cancer Screening documented in this encounter [facility] 03-14-2023 Instructions Millie Sánchez MD - 03/14/2023 3:22 PM EDT Recommend alf disability documented in this encounter [facility] 03-14-2023 History of Presen t illness Narrative Images from the original note were not included. . [facility] [place] [facility] [place] Note Patient name: Karli Duke PCP: Alberto [...] oxygen. 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 He [...] poor air quality days related to the [employer]. In fact, he had to take a [...] 20 3 Wheel Walker None NAME: ERICH Basstet PATIENT NAME: Karli Duke DATE: December 12, 2022 TIME: 2:36 PM PAST MEDICAL HISTORY Diagnosis Date Allergic rhinitis Asthma COPD (chronic obstructive pulmonary disease) ([facility]) Other and unspecified hyperlipidemia SAH (subarachnoid hemorrhage) ([facility]) Sleep apnea Tobacco abuse Quit 2015. ALLERGIES Allergen Reactions Codeine Unknown Environmental [Othe* Other: See Comments Molds and grasses as verified by skin testing Vicodin [Hydrocodon* Mental Status Change uryyblthsnu-xvqsukrdk-cwzzngfx (TRELEGY ELLIPTA) 200-62.5-25 mcg inhalation powder Inhale [...] PFRMD 04/10/2019 Colonoscopy OTHER ANEURYSM REPAIR 01/04/2017 [facility] PAST SURGICAL HISTORY OF cyst on [...] from supplemental oxygen Millie Sánchez MD [facility] [place] documented in this encounter [facility] 01-17-2023 Miscellaneous Notes Faxed. Yulisa Keith LPN Suri Roman needs a copy of the last office notes for this patient's supplies, please. You can fax them to [phone]. Thank you! Bree Estrella RN documented in this encounter [facility] 01-13-2023 Miscellaneous Notes Patient phones requesting refills as follows: Requested Prescriptions Pending Prescriptions Disp Refills fluticasone zpsggub-sgudgnkntzyr-gfwsdhhnaq (TRELEGY ELLIPTA) 200-62.5-25 mcg powder inhaler 180 Each 3 Sig: Inhale 1 Puff as instructed once daily. Please review and advise. Yulisa Keith LPN documented in this encounter [facility] 12-05-2022 Miscellaneous Notes THOMAS 11/14/2022 note reviewed NOV 01/11/2023 Rx approved documented in this encounter [facility] 12-01-2022 History of Presen t illness Narrative Chief Complaint Patient presents with: Discussion: For Lift Chair HPI Karli Duke is a 57 year old male who presents here today for lift chair eval. Pt has not been seen since May 2020. Will check with [employer]. He has a paper from [employer] to put him on High Priority list. He was advised to see if his Energy Project Engineer will complete it due to his breathing [...] (HCC) Sleep apnea Tobacco abuse Quit 2015. Previous Surgical History PAST SURGICAL HISTORY Procedure Laterality Date COLONOSCOPY FLX DX W/COLLJ SPEC WHEN PFRMD 04/10/2019 Colonoscopy OTHER ANEURYSM REPAIR 01/04/2017 [facility] PAST SURGICAL HISTORY OF cyst on [...] on File Prior to Visit Medication Sig hmwoogmrquf-jkrtmhoae-jquyscjr (TRELEGY ELLIPTA) 200-62.5-25 mcg inhalation powder Inhale [...] Past Histories independently gathered by the clinical support services manager and the remaining scribed note accurately describes [...] Renee Perez Ma documented in this encounter [facility] 11-14-2022 History of Presen t illness [...] bronchodilator use. 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 Wearing 2L supplemental oxygen. Did not tolerate BiPAP. DME: [facility]. PAST MEDICAL HISTORY Diagnosis Date Allergic rhinitis Asthma COPD (chronic obstructive pulmonary disease) ([facility]) Other and unspecified hyperlipidemia SAH (subarachnoid hemorrhage) ([facility]) Sleep apnea Tobacco abuse Quit 2015. Allergies: [...] Please increase ramp to 20 minutes. pantoprazole (PROTONIX) 40 mg tablet TAKE 1 TABLET [...] PFRMD 04/10/2019 Colonoscopy OTHER ANEURYSM REPAIR 01/04/2017 [facility] PAST SURGICAL HISTORY OF cyst on [...] Component Latest Ref Rng & Units 03/11/2022 [place] IgE <0.35 kU/l <0.35 [place] Class Class 0 Class 0 [id number] [place] <0.35 kU/l <0.35 [place] [...] 4 very severe COPD by GOLD classification ([facility]) - ICD9: 496, ICD10: J44.9 (primary diagnosis) [...] Helen Newman PA-C documented in this encounter [facility] 11-04-2022 Miscellaneous Notes Please schedule patient for a follow-up appointment. betty documented in this encounter [facility] 05-21-2022 History of Presen t illness [...] PFRMD 04/10/2019 Colonoscopy OTHER ANEURYSM REPAIR 01/04/2017 [facility] PAST SURGICAL HISTORY OF cyst on [...] MONOHYDRATE 100 MG TABLET Agrees to plan Niegl Taveras APRN.CNP documented in this encounter [facility] 04-25-2022 Miscellaneous Notes Your prescription has [...] Oralia Buchanan LPN documented in this encounter [facility] 03-16-2022 History of Presen t illness [...] 2022 1:59 PM documented in this encounter [facility] 03-14-2022 Miscellaneous Notes Duplicate request. Yulisa Keith LPN documented in this encounter [facility] 03-04-2022 History of Presen t illness Narrative Images from the original note were not included. . [facility] [place] [facility] [place] Note Patient name: Karli Duke PCP: Alberto Avelar MD CC: SOB HPI: Karli L White 56 year old male former 52-yhsz-ldkk smoker having quit in 2016 with PMH [...] CM Imaging / Diagnostic Studies: CTA chest [facility] 08/2019: I personally reviewed the images which show some upper lobe emphysema, RLL atelectasis, hyperinflation PAST MEDICAL HISTORY Diagnosis Date Allergic rhinitis Asthma COPD (chronic obstructive pulmonary disease) ([facility]) Other and unspecified hyperlipidemia SAH (subarachnoid hemorrhage) ([facility]) Sleep apnea Tobacco abuse Quit 2015. 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 Pets: dog, cat FAMILY HISTORY Problem Relation Age of Onset Diabetes Mother None Father other (overdose) Sister Allergies Daughter COPD No Family History Asthma No Family History PAST SURGICAL HISTORY Procedure Laterality Date COLONOSCOPY FLX DX W/COLLJ SPEC WHEN PFRMD 04/10/2019 Colonoscopy OTHER ANEURYSM REPAIR 01/04/2017 [facility] PAST SURGICAL HISTORY OF cyst on [...] and dog allergy Millie Sánchez MD [facility] [place] [facility] [place] documented in this encounter [facility] 03-04-2022 History of Presen t illness Narrative PULM FUNCTION SMARTBLOCK: Provider: Millie Sánchez MD Assisting Tech: ERICH Bassett Spirometry: 1 DLCO: 1 documented in this encounter [facility] 03-04-2022 Nurse Note Intake information documented in the prior visit with ERICH Bassett today. documented in this encounter [facility] 02-25-2022 History of Presen t illness Narrative Nocturnal Oximetry, BiPAP with 2 L, 02/22/2022. Recording interval: 5:5:46 High pulse: 88 Low pulse: 56 Highest spO2: 99% Lowest spO2: 86% Time with spO2 < 88%: 0.8 minutes Recommendation: Based on above results, current therapy is adequate. I have received and reviewed the outside records noted above. Helen Newman PA-C [facility] [place] [facility] [place] documented in this encounter [facility] 02-03-2022 History of Presen t illness Narrative Images from the original note were not included. [facility] Follow up/ Established [...] : Pt consents to virtual visit via [employer]. Here for follow up for mgmt of [...] or near accidents due to drowsy drivin [place] Sleepiness Scale 12/26/2021 02/02/2022 Score 8 (No [...] has appt with Pulmonology ib 03/04/22. - [facility] [place]: Submit download report. Alvaro Dorman APRN.STACY I spent a total of 25 minutes on the date of the service which included preparing to see the patient, xfim-gg-ojpw patient care, completing clinical documentation, counseling and educating the patient/family/caregiver and ordering medications, tests, or procedures. documented in this encounter [facility] 01-06-2022 Miscellaneous Notes Received RX form for CPAP supplies by fax from [facility] [place] for the provider's signature. Faxed signed form to [facility] [place] fax# [phone]. # [phone] documented in this encounter [facility] 12-30-2021 History of Presen t illness Narrative NEW PATIENT (CONSULT) HISTORY AND PHYSICAL EXAM (Virtual Visit with Video) PRIMARY CARE PHYSICIAN: Alberto Avelar MD REASON FOR CONSULT: GHASSAN REFERRING PHYSICIAN: Helen Newman, OUMAR CHIEF COMPLAINT: GHASSAN For this virtual visit, the patient has been identified by name and (MRN and photo identification as well if available). Those taking part in visit: Consent for this visit received from patient. HISTORY OF PRESENT ILLNESS: Karli L White is a 56 year old male, with a PMH significant for GHASSAN as determined by overnight PSG performed at [facility] on 07/26/2019 with AHI of 32.4. No other significant findings were reported at the time of that study and per review of the report. Patient reports he is now on CPAP, and states it hurts his chest when he has it on. Note a PAP titration was performed 10/2021 at [facility] and recommended Auto bilevel PAP. Set at [...] off work at 11PM and home around [place]). No RLS symptoms. Wakes to start the [...] PHQ-9 Score - - 3 (None-Minimal Depression) [place] Sleepiness Scale 03/08/2016 09/22/2017 12/26/2021 Score - [...] rhinitis Asthma COPD (chronic obstructive pulmonary disease) ([facility]) Other and unspecified hyperlipidemia SAH (subarachnoid hemorrhage) ([facility]) Sleep apnea Tobacco abuse Quit 2015. FAMILY [...] which included preparing to see the patient, [id number]-[id number] patient care, completing clinical documentation, obtaining and/or reviewing separately obtained history, performing a medically appropriate examination, counseling and educating the patient/family/caregiver, ordering medications, tests, or procedures, independently interpreting results (not separately reported) and communicating results to the patient/family/caregiver. documented in this encounter [facility] 12-17-2021 Miscellaneous Notes Received completed paperwork from provider. aidee faxed back to [facility] at [phone]. Also faxed to [facility]. documented in this encounter [facility] 11-25-2021 History of Presen t illness [...] Dr. Shaun Hernandez documented in this encounter [facility] 11-25-2021 Miscellaneous Notes Referral placed to Dr. Hernandez to manage GHASSAN and BiPAP. Betty documented in this encounter [facility] Evaluation note Diagnosis GHASSAN (obstructive sleep apnea)- Primary Obstructive sleep apnea (adult) (pediatric) [facility] Diagnosis GHASSAN (obstructive sleep apnea) Obstructive sleep apnea (adult) (pediatric) GHASSAN on CPAP Obstructive sleep apnea (adult) (pediatric) [facility] Obstructive sleep apnea- Primary Obstructive sleep apnea (adult) (pediatric) [facility] Diagnosis Stage 3 severe COPD by GOLD classification (HCC) [facility] Diagnosis Stage 3 severe COPD by GOLD classification (HCC) [facility] Diagnosis Stage 4 very severe COPD by GOLD classification (HCC)- Primary 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 Former cigarette smoker Personal history of tobacco use, presenting hazards to health History of seasonal allergies Other allergy, other than to medicinal agents [facility] Diagnosis Pulmonary emphysema, unspecified emphysema type (HCC) [facility] Diagnosis Pulmonary emphysema, unspecified emphysema type (HCC) [facility] Diagnosis Stage 4 very severe COPD by 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 [facility] Diagnosis Post-nasal drip Postnasal drip [facility] Diagnosis COPD with exacerbation (HCC)- Primary Obstructive chronic bronchitis with exacerbation [facility] Diagnosis Stage 4 very severe COPD by GOLD classification (HCC)- Primary Asthma-COPD overlap syndrome (HCC) History of seasonal allergies Other allergy, other than to medicinal agents Former cigarette smoker Personal history of tobacco use, presenting hazards to health GHASSAN (obstructive sleep apnea) Obstructive sleep apnea (adult) (pediatric) Dependence on nocturnal oxygen therapy [facility]* Diagnosis Pulmonary emphysema, unspecified emphysema type (HCC)- Primary Stage 4 very severe COPD by GOLD classification (HCC) documented in this encounter [facility] note* Diagnosis Stage 4 very severe COPD by 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) documented in this encounter [facility] note* Diagnosis Stage 4 very severe COPD by GOLD classification (HCC)- Primary documented in this encounter [facility] note* Diagnosis Former cigarette smoker- Primary Personal history of tobacco use, presenting hazards to health documented in this encounter [facility] note* Diagnosis Stage 4 very severe COPD by GOLD classification (HCC)- Primary Chronic hypoxemic respiratory failure (HCC) Chronic respiratory failure documented in this encounter [facility] note* Diagnosis Post-nasal drip Postnasal drip documented [facility]* Diagnosis Lung nodules- Primary Other nonspecific abnormal finding of lung field documented [facility] this encounter [facility]* Diagnosis Lung nodules Other nonspecific abnormal finding of lung field Pulmonary emphysema, unspecified emphysema type (HCC) documented in this encounter [facility] note* Diagnosis Stage 4 very severe COPD by GOLD classification (HCC)- Primary Former cigarette smoker Personal history of tobacco use, presenting hazards to health Chronic hypoxemic respiratory failure (HCC) Chronic respiratory failure Lung nodules Other nonspecific abnormal finding of lung field documented [facility]* Diagnosis Stage 4 very severe COPD by GOLD classification (HCC) documented in this encounter [facility] note* Diagnosis Stage 4 very severe COPD by GOLD classification (HCC) documented in this encounter [facility] note* Diagnosis Stage 4 very severe COPD by GOLD classification (HCC)- Primary Former cigarette smoker Personal history of tobacco use, presenting hazards to health Chronic hypoxemic respiratory failure (HCC) Chronic respiratory failure Chronic sinusitis, unspecified location GHASSAN (obstructive sleep apnea) Obstructive sleep apnea (adult) (pediatric) documented in this encounter [facility]* Diagnosis Stage 4 very severe COPD by 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) documented in this encounter [facility] note* Diagnosis Stage 4 very severe COPD by 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) documented in this encounter [facility] note* Diagnosis Pre-operative examination- Primary Preoperative examination, [...] Chronic respiratory failure documented in this encounter [facility] note* Diagnosis Pre-operative examination- Primary Preoperative examination, [...] hazards to health documented in this encounter [facility] note* Diagnosis Pre-operative examination- Primary Preoperative examination, unspecified Screening for colon cancer Special screening for malignant neoplasms, colon Brain aneurysm Cerebral aneurysm, nonruptured Uncomplicated asthma, unspecified asthma severity, unspecified whether persistent Pulmonary emphysema, unspecified emphysema type (HCC) Tinea corporis Dermatophytosis of the body Post-nasal drip Postnasal drip documented in this encounter [facility] note* Diagnosis Pre-operative examination- Primary Preoperative examination, unspecified Screening for colon cancer Special screening for malignant neoplasms, colon Brain aneurysm Cerebral aneurysm, nonruptured Uncomplicated asthma, unspecified asthma severity, unspecified whether persistent Pulmonary emphysema, unspecified emphysema type (HCC) Tinea corporis Dermatophytosis of the body Post-nasal drip Postnasal drip documented in this encounter [facility] note* Diagnosis Pre-operative examination- Primary Preoperative examination, unspecified Screening for colon cancer Special screening for malignant neoplasms, colon Brain aneurysm Cerebral aneurysm, nonruptured Uncomplicated asthma, unspecified asthma severity, unspecified whether persistent Pulmonary emphysema, unspecified emphysema type (HCC) Tinea corporis Dermatophytosis of the body Asthma-COPD overlap syndrome (HCC)- Primary Post-nasal drip Postnasal drip documented [facility]* Diagnosis Pre-operative examination- Primary Preoperative examination, unspecified Screening for colon cancer Special screening for malignant neoplasms, colon Brain aneurysm Cerebral aneurysm, nonruptured Uncomplicated asthma, unspecified asthma severity, unspecified whether persistent Pulmonary emphysema, unspecified emphysema type (HCC) Tinea corporis Dermatophytosis of the body Lung nodules Other nonspecific abnormal finding of lung field documented in this encounter [facility] note* Diagnosis Pre-operative examination- Primary Preoperative examination, [...] history of tobacco use, presenting hazards to [facility] Stage 4 very severe COPD by GOLD classification ([facility]) documented in this encounter [facility] note* Diagnosis Pre-operative examination- Primary Preoperative examination, unspecified Screening for colon cancer Special screening for malignant neoplasms, colon Brain aneurysm Cerebral aneurysm, nonruptured Uncomplicated asthma, unspecified asthma severity, unspecified whether persistent Pulmonary emphysema, unspecified emphysema type (HCC) Tinea corporis Dermatophytosis of the body Lung nodules- Primary Other nonspecific abnormal finding of lung field documented in this encounter [facility] note* Diagnosis Pre-operative examination- Primary Preoperative examination, unspecified Screening for colon cancer Special screening for malignant neoplasms, colon Brain aneurysm Cerebral aneurysm, nonruptured Uncomplicated asthma, unspecified asthma severity, unspecified whether persistent Pulmonary emphysema, unspecified emphysema type (HCC) Tinea corporis Dermatophytosis of the body Anxiousness- Primary Anxiety state, unspecified Stage 4 very severe COPD by GOLD classification ([facility]) Screening for prostate cancer Special screening for malignant neoplasm of prostate Screening for lipid disorders Screening for diabetes mellitus documented in this encounter [facility] note* Diagnosis Pre-operative examination- Primary Preoperative examination, unspecified Screening for colon cancer Special screening for malignant neoplasms, colon Brain aneurysm Cerebral aneurysm, nonruptured Uncomplicated asthma, unspecified asthma severity, unspecified whether persistent Pulmonary emphysema, unspecified emphysema type (HCC) Tinea corporis Dermatophytosis of the body COPD with exacerbation (HCC)- Primary Obstructive chronic bronchitis with exacerbation documented in this encounter [facility] note* Diagnosis Pre-operative examination- Primary Preoperative examination, unspecified Screening for colon cancer Special screening for malignant neoplasms, colon Brain aneurysm Cerebral aneurysm, nonruptured Uncomplicated asthma, unspecified asthma severity, unspecified whether persistent Pulmonary emphysema, unspecified emphysema type (HCC) Tinea corporis Dermatophytosis of the body Pneumonia of both lower lobes due to infectious organism documented in this encounter [facility] note* Diagnosis Pre-operative examination- Primary Preoperative examination, [...] to infectious organism documented in this encounter [facility] note* Diagnosis Pre-operative examination- Primary Preoperative examination, unspecified Screening for colon cancer Special screening for malignant neoplasms, colon Brain aneurysm Cerebral aneurysm, nonruptured Uncomplicated asthma, unspecified asthma severity, unspecified whether persistent Pulmonary emphysema, unspecified emphysema type (HCC) Tinea corporis Dermatophytosis of the body Elevated glucose- Primary Other abnormal glucose Elevated LFTs Other abnormal blood chemistry Hyperlipidemia, mixed Mixed hyperlipidemia documented in this encounter [facility] note* Diagnosis Pre-operative examination- Primary Preoperative examination, [...] Sleep disturbance, unspecified documented in this encounter [facility] note* Diagnosis Pre-operative examination- Primary Preoperative examination, [...] Other abnormal glucose documented in this encounter [facility] note* Diagnosis Pre-operative examination- Primary Preoperative examination, [...] Other abnormal glucose documented in this encounter [facility] note* Diagnosis Pre-operative examination- Primary Preoperative examination, unspecified Screening for colon cancer Special screening for malignant neoplasms, colon Brain aneurysm (HCC) Cerebral aneurysm, nonruptured Uncomplicated asthma, unspecified asthma severity, unspecified whether persistent (HCC) Pulmonary emphysema, unspecified emphysema type (HCC) Tinea corporis Dermatophytosis of the body Sleeping difficulty- Primary Sleep disturbance, unspecified Anxiousness Anxiety state, unspecified Stage 4 very severe COPD by GOLD classification ([facility]) documented in this encounter [facility] note* Diagnosis Pre-operative examination- Primary Preoperative examination, [...] history of tobacco use, presenting hazards to [facility] Stage 4 very severe COPD by GOLD classification ([facility]) documented in this encounter [facility] note* Diagnosis Pre-operative examination- Primary Preoperative examination, unspecified Screening for colon cancer Special screening for malignant neoplasms, colon Brain aneurysm (HCC) Cerebral aneurysm, nonruptured Uncomplicated asthma, unspecified asthma severity, unspecified whether persistent (HCC) Pulmonary emphysema, unspecified emphysema type (HCC) Tinea corporis Dermatophytosis of the body Lung nodules Other nonspecific abnormal finding of lung field documented in this encounter [facility] note* Diagnosis Pre-operative examination- Primary Preoperative examination, unspecified Screening for colon cancer Special screening for malignant neoplasms, colon Brain aneurysm (HCC) Cerebral aneurysm, nonruptured Uncomplicated asthma, unspecified asthma severity, unspecified whether persistent (HCC) Pulmonary emphysema, unspecified emphysema type (HCC) Tinea corporis Dermatophytosis of the body Sleeping difficulty Sleep disturbance, unspecified documented in this encounter [facility] note* Diagnosis Pre-operative examination- Primary Preoperative examination, unspecified Screening for colon cancer Special screening for malignant neoplasms, colon Brain aneurysm (HCC) Cerebral aneurysm, nonruptured Uncomplicated asthma, unspecified asthma severity, unspecified whether persistent (HCC) Pulmonary emphysema, unspecified emphysema type (HCC) Tinea corporis Dermatophytosis of the body Stage 4 very severe COPD by 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) documented in this encounter [facility] note* Diagnosis Pre-operative examination- Primary Preoperative examination, unspecified Screening for colon cancer Special screening for malignant neoplasms, colon Brain aneurysm (HCC) Cerebral aneurysm, nonruptured Uncomplicated asthma, unspecified asthma severity, unspecified whether persistent (HCC) Pulmonary emphysema, unspecified emphysema type (HCC) Tinea corporis Dermatophytosis of the body Stage 4 very severe COPD by 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) documented in this encounter [facility] noteNo assessment information availableWCleveland Clinic [facility] Work Phone: Evaluation note* Diagnosis Pre-operative examination- Primary Preoperative examination, unspecified Screening for colon cancer Special screening for malignant neoplasms, colon Brain aneurysm (HCC) Cerebral aneurysm, nonruptured Uncomplicated asthma, unspecified asthma severity, unspecified whether persistent (HCC) Pulmonary emphysema, unspecified emphysema type (HCC) Tinea corporis Dermatophytosis of the body Hypoxemia Acute respiratory distress Other pulmonary insufficiency, not elsewhere classified documented in this encounter [facility] for referral (narrative)* Outpatient Procedure (Routine) - Authorized Specialty Diagnoses / Procedures Referred By Trever t Referred To Contact [facility] Diagnoses Stage 4 very severe COPD by GOLD classification (HCC) Procedures OXIMETRY WITH AMBULATION NONINVASIVE EAR/PULSE OXIMETRY Helen Fang PA-C [address] [place] [address] Respiratory [place] [address] [place], [place] [id number] Referral ID Status Reason Start Date Expiration Date Visits Requested Visits Authorized [id number] Authorized Auto-Generat ed Referral 11/14/2022 12/14/2023 1 1 [facility] for referral (narrative)* Outpatient Procedure (Routine) - Authorized Specialty Diagnoses / Procedures Referred By Contac t Referred To Contact [facility] Diagnoses Stage 4 very severe COPD by GOLD classification (HCC) Chronic hypoxemic respiratory failure (HCC) Procedures OXIMETRY WITH AMBULATION NONINVASIVE EAR/PULSE OXIMETRY MULTIPLE DETER Helen Newman PA-C [address] [place] [address] Res[facility] [place] [address] [place] [address] Referral ID Status Reason Start Date Expiration Date Visits Requested Visits Authorized [id number] Authorized Auto-Generat ed Referral 08/29/2023 09/27/2024 1 1 * Transition of Care (Routine) - Ref Not Required Specialty Diagnoses / Procedures Referred By Contac t Referred To Contact Ent - Otolaryngology Diagnoses Chronic sinusitis, unspecified location Procedures CONSULT TO ENT Helen Newman PA-C [address] [place] [address] David Hammond [address] [place] [address] Referral ID Status Reason Start Date Expiration Date Visits Requested Visits Authorized [id number] Ref Not Required PCP Requested Referral 08/29/2023 08/28/2024 1 1 [facility] for referral (narrative)No reason for referral information availableWCleveland Clinic [facility] Work Phone: Advance Directives Documents on File Type Date Recorded 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 No February 21, 2025 5:14pm Reason for Referral Specialty Diagnoses / Procedures Referred By Contac t Referred To Contact Diagnoses GHASSAN (obstructive sleep apnea) Procedures CONSULT TO SLEEP MEDICINE - ADULT OFFICE/OUTPATIENT [facility] 60-74 MINUTES Helen Newman, PA-C [address] [facility] [address] [place] [address] Shaun Hernandez Jr., MD [address] [facility] [address] [place] [address] Referral ID Status Reason Start Date Expiration Date Visits Requested Visits Authorized [id number] Authorized PCP Requested Referral 11/25/2021 02/23/2022 1 1 Specialty Diagnoses / Procedures Referred By Contac t Referred To Contact CT IMAGING Diagnoses Stage 4 very severe COPD by GOLD classification (HCC) SOB (shortness of breath) 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HCC) Procedures CT CHEST WO IVCON DIAGNOSTIC COMPUTED TOMOGRAPHY THORAX W/O CNTRST Millie Sánchez MD [address] [place] [address] Ct Imaging Referral ID Status Reason Start Date Expiration Date Visits Requested Visits Authorized [id number] Authorized Auto-Generat ed Referral 03/04/2022 07/02/2022 1 1 Referral ID Status Reason Start Date Expiration Date V isits Requested Visits Authorized [id number] Closed Auto-Generate d Referral 03/04/2022 07/02/2022 1 1 Specialty Diagnoses / Procedures Referred By Contac t Referred To Contact CT IMAGING Diagnoses Lung nodules Procedures CT CHEST WO IVCON DIAGNOSTIC COMPUTED TOMOGRAPHY THORAX W/O CNTRSNathalie Armendariz, D[employer] [address] [place] [address] [id number] Referral ID Status Reason Start Date Expiration Date Visits Requested Visits Authorized [id number] Pending Review Auto-Generat ed Referral 3 05/30/2024 1 1 Specialty Diagnoses / Procedures Referred By Contac t Referred To Contact CT IMAGING Diagnoses Lung nodules Pulmonary emphysema, unspecified emphysema type (HCC) Procedures CT CHEST WO IVCON DIAGNOSTIC COMPUTED TOMOGRAPHY THORAX W/O CNTRST Nathalie Mojica, D[employer] [address] [place] [address] [facility] Referral ID Status Reason Start Date Expiration Date V isits Requested Visits Authorized [id number] Closed Auto-Generate d Referral 04/11/2023 05/10/2024 1 1 Referral ID Status Reason Start Date Expiration Date Visits Requested Visits Authorized [id number] New Request Auto-Generat ed Referral 4 06/26/2025 1 1 Summary Purpose Family History Relationship Condition Age at Onset Recorded Date/T jay Unknown Family History?- Unknown August 262019 1:14am Family History?Diabetes, - Unknown F ebruary 2019 1:14am Chief Complaint and Reason for Visit Chief Complaint Admit Date BL BNA COPD EXACERBATION ACUTE RESPIRATO RY FAILURE February 21, 2025 7:58pm Additional Source Comments Source Comments (unrecognize d section and content) In the event this informatio n is protected by the Federal Confidentiality of Alcohol and Drug Abuse Patient Records regulations: The Federal rules restrict any use of the information to criminally investigate or prosecute any alcohol or drug abuse patient.[facility] the event this information is protected by the Federal Confidentiality of Alcohol and Drug Abuse Patient Records regulations: The Federal rules restrict any use of the information to criminally investigate or prosecute any alcohol or drug abuse patient.[facility] the event this information is protected by the Federal Confidentiality of Alcohol and Drug Abuse Patient Records regulations: The Federal rules restrict any use of the information to criminally investigate or prosecute any alcohol or drug abuse patient.[facility] the event this information is protected by the Federal Confidentiality of Alcohol and Drug Abuse Patient Records regulations: The Federal rules restrict any use of the information to criminally investigate or prosecute any alcohol or drug abuse patient.[facility] Hospital[facility] the event this information is protected by the Federal Confidentiality of Alcohol and Drug Abuse Patient Records regulations: The Federal rules restrict any use of the information to criminally investigate or prosecute any alcohol or drug abuse patient.[facility] Hospital[facility] the event this information is protected by the Federal Confidentiality of Alcohol and Drug Abuse Patient Records regulations: The Federal rules restrict any use of the information to criminally investigate or prosecute any alcohol or drug abuse patient.[facility] HospitalIn the event this information is protected by the Federal Confidentiality of Alcohol and Drug Abuse Patient Records regulations: The Federal rules restrict any use of the information to criminally investigate or prosecute any alcohol or drug abuse patient.[facility] Hospital[facility] the event this information is protected by the Federal Confidentiality of Alcohol and Drug Abuse Patient Records regulations: The Federal rules restrict any use of the information to criminally investigate or prosecute any alcohol or drug abuse patient.[facility] HospitalIn the event this information is protected by the Federal Confidentiality of Alcohol and Drug Abuse Patient Records regulations: The Federal rules restrict any use of the information to criminally investigate or prosecute any alcohol or drug abuse patient.[facility] HospitalIn the event this information is protected by the Federal Confidentiality of Alcohol and Drug Abuse Patient Records regulations: The Federal rules restrict any use of the information to criminally investigate or prosecute any alcohol or drug abuse patient.[facility] HospitalIn the event this information is protected by the Federal Confidentiality of Alcohol and Drug Abuse Patient Records regulations: The Federal rules restrict any use of the information to criminally investigate or prosecute any alcohol or drug abuse patient.[facility] HospitalIn the event this information is protected by the Federal Confidentiality of Alcohol and Drug Abuse Patient Records regulations: The Federal rules restrict any use of the information to criminally investigate or prosecute any alcohol or drug abuse patient.[facility] HospitalIn the event this information is protected by the Federal Confidentiality of Alcohol and Drug Abuse Patient Records regulations: The Federal rules restrict any use of the information to criminally investigate or prosecute any alcohol or drug abuse patient.[facility] HospitalIn the event this information is protected by the Federal Confidentiality of Alcohol and Drug Abuse Patient Records regulations: The Federal rules restrict any use of the information to criminally investigate or prosecute any alcohol or drug abuse patient.[facility] HospitalIn the event this information is protected by the Federal Confidentiality of Alcohol and Drug Abuse Patient Records regulations: The Federal rules restrict any use of the information to criminally investigate or prosecute any alcohol or drug abuse patient.[facility] HospitalIn the event this information is protected by the Federal Confidentiality of Alcohol and Drug Abuse Patient Records regulations: The Federal rules restrict any use of the information to criminally investigate or prosecute any alcohol or drug abuse patient.[facility] HospitalIn the event this information is protected by the Federal Confidentiality of Alcohol and Drug Abuse Patient Records regulations: The Federal rules restrict any use of the information to criminally investigate or prosecute any alcohol or drug abuse patient.[facility] HospitalIn the event this information is protected by the Federal Confidentiality of Alcohol and Drug Abuse Patient Records regulations: The Federal rules restrict any use of the information to criminally investigate or prosecute any alcohol or drug abuse patient.[facility] HospitalIn the event this information is protected by the Federal Confidentiality of Alcohol and Drug Abuse Patient Records regulations: The Federal rules restrict any use of the information to criminally investigate or prosecute any alcohol or drug abuse patient.[facility] HospitalIn the event this information is protected by the Federal Confidentiality of Alcohol and Drug Abuse Patient Records regulations: The Federal rules restrict any use of the information to criminally investigate or prosecute any alcohol or drug abuse patient.[facility] HospitalIn the event this information is protected by the Federal Confidentiality of Alcohol and Drug Abuse Patient Records regulations: The Federal rules restrict any use of the information to criminally investigate or prosecute any alcohol or drug abuse patient.[facility] HospitalIn the event this information is protected by the Federal Confidentiality of Alcohol and Drug Abuse Patient Records regulations: The Federal rules restrict any use of the information to criminally investigate or prosecute any alcohol or drug abuse patient.[facility] HospitalIn the event this information is protected by the Federal Confidentiality of Alcohol and Drug Abuse Patient Records regulations: The Federal rules restrict any use of the information to criminally investigate or prosecute any alcohol or drug abuse patient.[facility] HospitalIn the event this information is protected by the Federal Confidentiality of Alcohol and Drug Abuse Patient Records regulations: The Federal rules restrict any use of the information to criminally investigate or prosecute any alcohol or drug abuse patient.[facility] HospitalIn the event this information is protected by the Federal Confidentiality of Alcohol and Drug Abuse Patient Records regulations: The Federal rules restrict any use of the information to criminally investigate or prosecute any alcohol or drug abuse patient.[facility] HospitalIn the event this information is protected by the Federal Confidentiality of Alcohol and Drug Abuse Patient Records regulations: The Federal rules restrict any use of the information to criminally investigate or prosecute any alcohol or drug abuse patient.[facility] HospitalIn the event this information is protected by the Federal Confidentiality of Alcohol and Drug Abuse Patient Records regulations: The Federal rules restrict any use of the information to criminally investigate or prosecute any alcohol or drug abuse patient.[facility] HospitalIn the event this information is protected by the Federal Confidentiality of Alcohol and Drug Abuse Patient Records regulations: The Federal rules restrict any use of the information to criminally investigate or prosecute any alcohol or drug abuse patient.[facility] HospitalIn the event this information is protected by the Federal Confidentiality of Alcohol and Drug Abuse Patient Records regulations: The Federal rules restrict any use of the information to criminally investigate or prosecute any alcohol or drug abuse patient.[facility] HospitalIn the event this information is protected by the Federal Confidentiality of Alcohol and Drug Abuse Patient Records regulations: The Federal rules restrict any use of the information to criminally investigate or prosecute any alcohol or drug abuse patient.[facility] HospitalIn the event this information is protected by the Federal Confidentiality of Alcohol and Drug Abuse Patient Records regulations: The Federal rules restrict any use of the information to criminally investigate or prosecute any alcohol or drug abuse patient.[facility] HospitalIn the event this information is protected by the Federal Confidentiality of Alcohol and Drug Abuse Patient Records regulations: The Federal rules restrict any use of the information to criminally investigate or prosecute any alcohol or drug abuse patient.[facility] HospitalIn the event this information is protected by the Federal Confidentiality of Alcohol and Drug Abuse Patient Records regulations: The Federal rules restrict any use of the information to criminally investigate or prosecute any alcohol or drug abuse patient.[facility] HospitalIn the event this information is protected by the Federal Confidentiality of Alcohol and Drug Abuse Patient Records regulations: The Federal rules restrict any use of the information to criminally investigate or prosecute any alcohol or drug abuse patient.[facility] HospitalIn the event this information is protected by the Federal Confidentiality of Alcohol and Drug Abuse Patient Records regulations: The Federal rules restrict any use of the information to criminally investigate or prosecute any alcohol or drug abuse patient.[facility] HospitalIn the event this information is protected by the Federal Confidentiality of Alcohol and Drug Abuse Patient Records regulations: The Federal rules restrict any use of the information to criminally investigate or prosecute any alcohol or drug abuse patient.[facility] HospitalIn the event this information is protected by the Federal Confidentiality of Alcohol and Drug Abuse Patient Records regulations: The Federal rules restrict any use of the information to criminally investigate or prosecute any alcohol or drug abuse patient.[facility] HospitalIn the event this information is protected by the Federal Confidentiality of Alcohol and Drug Abuse Patient Records regulations: The Federal rules restrict any use of the information to criminally investigate or prosecute any alcohol or drug abuse patient.[facility] HospitalIn the event this information is protected by the Federal Confidentiality of Alcohol and Drug Abuse Patient Records regulations: The Federal rules restrict any use of the information to criminally investigate or prosecute any alcohol or drug abuse patient.[facility] HospitalIn the event this information is protected by the Federal Confidentiality of Alcohol and Drug Abuse Patient Records regulations: The Federal rules restrict any use of the information to criminally investigate or prosecute any alcohol or drug abuse patient.[facility] HospitalIn the event this information is protected by the Federal Confidentiality of Alcohol and Drug Abuse Patient Records regulations: The Federal rules restrict any use of the information to criminally investigate or prosecute any alcohol or drug abuse patient.[facility] HospitalIn the event this information is protected by the Federal Confidentiality of Alcohol and Drug Abuse Patient Records regulations: The Federal rules restrict any use of the information to criminally investigate or prosecute any alcohol or drug abuse patient.[facility] HospitalIn the event this information is protected by the Federal Confidentiality of Alcohol and Drug Abuse Patient Records regulations: The Federal rules restrict any use of the information to criminally investigate or prosecute any alcohol or drug abuse patient.[facility] HospitalIn the event this information is protected by the Federal Confidentiality of Alcohol and Drug Abuse Patient Records regulations: The Federal rules restrict any use of the information to criminally investigate or prosecute any alcohol or drug abuse patient.[facility] HospitalIn the event this information is protected by the Federal Confidentiality of Alcohol and Drug Abuse Patient Records regulations: The Federal rules restrict any use of the information to criminally investigate or prosecute any alcohol or drug abuse patient.[facility] HospitalIn the event this information is protected by the Federal Confidentiality of Alcohol and Drug Abuse Patient Records regulations: The Federal rules restrict any use of the information to criminally investigate or prosecute any alcohol or drug abuse patient.[facility] HospitalIn the event this information is protected by the Federal Confidentiality of Alcohol and Drug Abuse Patient Records regulations: The Federal rules restrict any use of the information to criminally investigate or prosecute any alcohol or drug abuse patient.[facility] HospitalIn the event this information is protected by the Federal Confidentiality of Alcohol and Drug Abuse Patient Records regulations: The Federal rules restrict any use of the information to criminally investigate or prosecute any alcohol or drug abuse patient.[facility] HospitalIn the event this information is protected by the Federal Confidentiality of Alcohol and Drug Abuse Patient Records regulations: The Federal rules restrict any use of the information to criminally investigate or prosecute any alcohol or drug abuse patient.[facility] HospitalIn the event this information is protected by the Federal Confidentiality of Alcohol and Drug Abuse Patient Records regulations: The Federal rules restrict any use of the information to criminally investigate or prosecute any alcohol or drug abuse patient.[facility] HospitalIn the event this information is protected by the Federal Confidentiality of Alcohol and Drug Abuse Patient Records regulations: The Federal rules restrict any use of the information to criminally investigate or prosecute any alcohol or drug abuse patient.[facility] HospitalIn the event this information is protected by the Federal Confidentiality of Alcohol and Drug Abuse Patient Records regulations: The Federal rules restrict any use of the information to criminally investigate or prosecute any alcohol or drug abuse patient.[facility] HospitalIn the event this information is protected by the Federal Confidentiality of Alcohol and Drug Abuse Patient Records regulations: The Federal rules restrict any use of the information to criminally investigate or prosecute any alcohol or drug abuse patient.[facility] HospitalIn the event this information is protected by the Federal Confidentiality of Alcohol and Drug Abuse Patient Records regulations: The Federal rules restrict any use of the information to criminally investigate or prosecute any alcohol or drug abuse patient.[facility] HospitalIn the event this information is protected by the Federal Confidentiality of Alcohol and Drug Abuse Patient Records regulations: The Federal rules restrict any use of the information to criminally investigate or prosecute any alcohol or drug abuse patient.[facility] HospitalIn the event this information is protected by the Federal Confidentiality of Alcohol and Drug Abuse Patient Records regulations: The Federal rules restrict any use of the information to criminally investigate or prosecute any alcohol or drug abuse patient.[facility] HospitalIn the event this information is protected by the Federal Confidentiality of Alcohol and Drug Abuse Patient Records regulations: The Federal rules restrict any use of the information to criminally investigate or prosecute any alcohol or drug abuse patient.[facility] HospitalIn the event this information is protected by the Federal Confidentiality of Alcohol and Drug Abuse Patient Records regulations: The Federal rules restrict any use of the information to criminally investigate or prosecute any alcohol or drug abuse patient.[facility] HospitalIn the event this information is protected by the Federal Confidentiality of Alcohol and Drug Abuse Patient Records regulations: The Federal rules restrict any use of the information to criminally investigate or prosecute any alcohol or drug abuse patient.[facility] HospitalIn the event this information is protected by the Federal Confidentiality of Alcohol and Drug Abuse Patient Records regulations: The Federal rules restrict any use of the information to criminally investigate or prosecute any alcohol or drug abuse patient.[facility] HospitalIn the event this information is protected by the Federal Confidentiality of Alcohol and Drug Abuse Patient Records regulations: The Federal rules restrict any use of the information to criminally investigate or prosecute any alcohol or drug abuse patient.[facility] HospitalIn the event this information is protected by the Federal Confidentiality of Alcohol and Drug Abuse Patient Records regulations: The Federal rules restrict any use of the information to criminally investigate or prosecute any alcohol or drug abuse patient.[facility] HospitalIn the event this information is protected by the Federal Confidentiality of Alcohol and Drug Abuse Patient Records regulations: The Federal rules restrict any use of the information to criminally investigate or prosecute any alcohol or drug abuse patient.[facility] HospitalIn the event this information is protected by the Federal Confidentiality of Alcohol and Drug Abuse Patient Records regulations: The Federal rules restrict any use of the information to criminally investigate or prosecute any alcohol or drug abuse patient.[facility] HospitalIn the event this information is protected by the Federal Confidentiality of Alcohol and Drug Abuse Patient Records regulations: The Federal rules restrict any use of the information to criminally investigate or prosecute any alcohol or drug abuse patient.[facility] HospitalIn the event this information is protected by the Federal Confidentiality of Alcohol and Drug Abuse Patient Records regulations: The Federal rules restrict any use of the information to criminally investigate or prosecute any alcohol or drug abuse patient.[facility] HospitalIn the event this information is protected by the Federal Confidentiality of Alcohol and Drug Abuse Patient Records regulations: The Federal rules restrict any use of the information to criminally investigate or prosecute any alcohol or drug abuse patient.[facility] HospitalIn the event this information is protected by the Federal Confidentiality of Alcohol and Drug Abuse Patient Records regulations: The Federal rules restrict any use of the information to criminally investigate or prosecute any alcohol or drug abuse patient.[facility] HospitalIn the event this information is protected by the Federal Confidentiality of Alcohol and Drug Abuse Patient Records regulations: The Federal rules restrict any use of the information to criminally investigate or prosecute any alcohol or drug abuse patient.[facility] HospitalIn the event this information is protected by the Federal Confidentiality of Alcohol and Drug Abuse Patient Records regulations: The Federal rules restrict any use of the information to criminally investigate or prosecute any alcohol or drug abuse patient.[facility] HospitalIn the event this information is protected by the Federal Confidentiality of Alcohol and Drug Abuse Patient Records regulations: The Federal rules restrict any use of the information to criminally investigate or prosecute any alcohol or drug abuse patient.[facility] HospitalIn the event this information is protected by the Federal Confidentiality of Alcohol and Drug Abuse Patient Records regulations: The Federal rules restrict any use of the information to criminally investigate or prosecute any alcohol or drug abuse patient.[facility] HospitalIn the event this information is protected by the Federal Confidentiality of Alcohol and Drug Abuse Patient Records regulations: The Federal rules restrict any use of the information to criminally investigate or prosecute any alcohol or drug abuse patient.[facility] HospitalIn the event this information is protected by the Federal Confidentiality of Alcohol and Drug Abuse Patient Records regulations: The Federal rules restrict any use of the information to criminally investigate or prosecute any alcohol or drug abuse patient.[facility] HospitalIn the event this information is protected by the Federal Confidentiality of Alcohol and Drug Abuse Patient Records regulations: The Federal rules restrict any use of the information to criminally investigate or prosecute any alcohol or drug abuse patient.[facility] HospitalIn the event this information is protected by the Federal Confidentiality of Alcohol and Drug Abuse Patient Records regulations: The Federal rules restrict any use of the information to criminally investigate or prosecute any alcohol or drug abuse patient.[facility] HospitalIn the event this information is protected by the Federal Confidentiality of Alcohol and Drug Abuse Patient Records regulations: The Federal rules restrict any use of the information to criminally investigate or prosecute any alcohol or drug abuse patient.[facility] HospitalIn the event this information is protected by the Federal Confidentiality of Alcohol and Drug Abuse Patient Records regulations: The Federal rules restrict any use of the information to criminally investigate or prosecute any alcohol or drug abuse patient.[facility] HospitalIn the event this information is protected by the Federal Confidentiality of Alcohol and Drug Abuse Patient Records regulations: The Federal rules restrict any use of the information to criminally investigate or prosecute any alcohol or drug abuse patient.[facility] HospitalIn the event this information is protected by the Federal Confidentiality of Alcohol and Drug Abuse Patient Records regulations: The Federal rules restrict any use of the information to criminally investigate or prosecute any alcohol or drug abuse patient.[facility] HospitalIn the event this information is protected by the Federal Confidentiality of Alcohol and Drug Abuse Patient Records regulations: The Federal rules restrict any use of the information to criminally investigate or prosecute any alcohol or drug abuse patient.[facility] HospitalIn the event this information is protected by the Federal Confidentiality of Alcohol and Drug Abuse Patient Records regulations: The Federal rules restrict any use of the information to criminally investigate or prosecute any alcohol or drug abuse patient.[facility] HospitalIn the event this information is protected by the Federal Confidentiality of Alcohol and Drug Abuse Patient Records regulations: The Federal rules restrict any use of the information to criminally investigate or prosecute any alcohol or drug abuse patient.[facility] HospitalIn the event this information is protected by the Federal Confidentiality of Alcohol and Drug Abuse Patient Records regulations: The Federal rules restrict any use of the information to criminally investigate or prosecute any alcohol or drug abuse patient.[facility] HospitalIn the event this information is protected by the Federal Confidentiality of Alcohol and Drug Abuse Patient Records regulations: The Federal rules restrict any use of the information to criminally investigate or prosecute any alcohol or drug abuse patient.[facility] HospitalIn the event this information is protected by the Federal Confidentiality of Alcohol and Drug Abuse Patient Records regulations: The Federal rules restrict any use of the information to criminally investigate or prosecute any alcohol or drug abuse patient.[facility] HospitalIn the event this information is protected by the Federal Confidentiality of Alcohol and Drug Abuse Patient Records regulations: The Federal rules restrict any use of the information to criminally investigate or prosecute any alcohol or drug abuse patient.[facility] HospitalIn the event this information is protected by the Federal Confidentiality of Alcohol and Drug Abuse Patient Records regulations: The Federal rules restrict any use of the information to criminally investigate or prosecute any alcohol or drug abuse patient.[facility] HospitalIn the event this information is protected by the Federal Confidentiality of Alcohol and Drug Abuse Patient Records regulations: The Federal rules restrict any use of the information to criminally investigate or prosecute any alcohol or drug abuse patient.[facility] HospitalIn the event this information is protected by the Federal Confidentiality of Alcohol and Drug Abuse Patient Records regulations: The Federal rules restrict any use of the information to criminally investigate or prosecute any alcohol or drug abuse patient.[facility] HospitalIn the event this information is protected by the Federal Confidentiality of Alcohol and Drug Abuse Patient Records regulations: The Federal rules restrict any use of the information to criminally investigate or prosecute any alcohol or drug abuse patient.[facility] HospitalIn the event this information is protected by the Federal Confidentiality of Alcohol and Drug Abuse Patient Records regulations: The Federal rules restrict any use of the information to criminally investigate or prosecute any alcohol or drug abuse patient.[facility] HospitalIn the event this information is protected by the Federal Confidentiality of Alcohol and Drug Abuse Patient Records regulations: The Federal rules restrict any use of the information to criminally investigate or prosecute any alcohol or drug abuse patient.[facility] HospitalIn the event this information is protected by the Federal Confidentiality of Alcohol and Drug Abuse Patient Records regulations: The Federal rules restrict any use of the information to criminally investigate or prosecute any alcohol or drug abuse patient.[facility] HospitalIn the event this information is protected by the Federal Confidentiality of Alcohol and Drug Abuse Patient Records regulations: The Federal rules restrict any use of the information to criminally investigate or prosecute any alcohol or drug abuse patient.[facility] HospitalIn the event this information is protected by the Federal Confidentiality of Alcohol and Drug Abuse Patient Records regulations: The Federal rules restrict any use of the information to criminally investigate or prosecute any alcohol or drug abuse patient.[facility] HospitalIn the event this information is protected by the Federal Confidentiality of Alcohol and Drug Abuse Patient Records regulations: The Federal rules restrict any use of the information to criminally investigate or prosecute any alcohol or drug abuse patient.[facility] HospitalIn the event this information is protected by the Federal Confidentiality of Alcohol and Drug Abuse Patient Records regulations: The Federal rules restrict any use of the information to criminally investigate or prosecute any alcohol or drug abuse patient.[facility] Reason for Visit (unrecogniz ed section and content) Reason Comments Refill Request Reason Comments New Patient Sleep Apnea Specialty Diagnoses / Procedures Referred By Contac t Referred To Contact Diagnoses GHASSAN (obstructive sleep apnea) Procedures CONSULT TO SLEEP MEDICINE - ADULT OFFICE/OUTPATIENT [facility] MDM 60-74 MINUTES Helen Newman PA-C [address] [address] Shaun Hernandez Jr., MD [address] [address] Referral ID Status Reason Start Date Expiration Date V isits Requested Visits Authorized [id number] Closed PCP Requested Referral 11/25/2021 02/23/2022 1 1 Reason Comments Electronic Communication Reason Comments Sleep Apnea Reason Comments Spirometry Specialty Diagnoses / Procedures Referred By Contac t Referred To Contact [facility] Diagnoses Stage 3 severe COPD by GOLD classification ([facility]) Procedures LUNG DIFFUSION CAPACITY (DLCO) DIFFUSING CAPACITY Helen Newman PA-C [address] [address] [facility] [place] [address] [place] [place] [address] Referral ID Status Reason Start Date Expiration Date V isits Requested Visits Authorized [id number] Closed Auto-Generate d Referral 09/03/2021 10/03/2022 1 1 Specialty Diagnoses / Procedures Referred By Contac t Referred To Contact [facility] Diagnoses Stage 3 severe COPD by GOLD classification ([facility]) Procedures SPIROMETRY BASELINE ONLY SPMTRY W/VC EXPIRATORY NATTY W/WO MXML VOL VNTJ Helen Newman PA-C [address] [address] [facility] [place] [address] [place] [place] [address] Referral ID Status Reason Start Date Expiration Date V isits Requested Visits Authorized [id number] Closed Auto-Generate d Referral 09/03/2021 10/03/2022 1 1 Reason Comments Established Patient COPD Reason Onset Date Comments Refill Request 03/14/[address] Specialty Diagnoses / Procedures Referred By Contac t Referred To Contact CT IMAGING Diagnoses Stage 4 very severe COPD by GOLD classification ([facility]) SOB (shortness of breath) 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HCC) Procedures CT CHEST WO IVCON DIAGNOSTIC COMPUTED TOMOGRAPHY THORAX W/O CNTRST Millie Sánchez MD [address] [place] [address] Ct Imaging Referral ID Status Reason Start Date Expiration Date V isits Requested Visits Authorized [id number] Closed Auto-Generate d Referral 03/04/2022 07/02/2022 1 1 Reason Comments Cough Cough, congestion, y ellow/green drainage-COPD exacerbation x 1 week Reason Comments Discussion For Lift Chair Reason Comments Orders Reason Comments COPD Reason Comments [employer] - Other Short Term Disa bility Reason Comments Patient Update Reason Comments Results Specialty Diagnoses / Procedures Referred By Contac t Referred To Contact CT IMAGING Diagnoses Lung nodules Pulmonary emphysema, unspecified emphysema type (HCC) Procedures CT CHEST WO IVCON DIAGNOSTIC COMPUTED TOMOGRAPHY THORAX W/O CNTRST Nathalie Mojica APRN.STEEL RIGGER [address] [place] [address] Ct Imaging [place] [address] Referral ID Status Reason Start Date Expiration Date V isits Requested Visits Authorized [id number] Closed Auto-Generate d Referral 04/11/2023 05/10/2024 1 1 Reason Comments Established Patient 3 month follow up [place] Specialty Diagnoses / Procedures Referred By Contac t Referred To [facility] Diagnoses Stage 4 very severe COPD by GOLD classification ([facility]) Procedures SPIROMETRY BASELINE ONLY SPMTRY W/VC EXPIRATORY NATTY W/WO MXML VOL Helen Reddy, PAKristian [address] [place] [address] [facility] [place] [address] [place] [address] Referral ID Status Reason Start Date Expiration Date V isits Requested Visits Authorized [id number] Closed Auto-Generate d Referral 07/12/2023 08/10/2024 1 1 Specialty Diagnoses / Procedures Referred By Contac t Referred To Contact [facility] Diagnoses Stage 4 very severe COPD by GOLD classification ([facility]) Procedures LUNG DIFFUSION CAPACITY (DLCO) DIFFUSING CAPACITY Helen Newman PA-C [address] [place] [address] [address] Referral ID Status Reason Start Date Expiration Date V isits Requested Visits Authorized [id number] Closed Auto-Generate d Referral 07/12/2023 08/10/2024 1 1 Specialty Diagnoses / Procedures Referred By Contac t Referred To [facility] [place] Diagnoses Stage 4 very severe COPD by GOLD classification ([facility]) Procedures LUNG VOLUMES Helen Newman PA-C [address] [place] [address] [address] Referral ID Status Reason Start Date Expiration Date V isits Requested Visits Authorized [id number] Closed Auto-Generate d Referral 08/03/2023 07/02/2024 1 1 Reason Comments Established Patient COPD Established Patient Follow-Up Specialty Diagnoses / Procedures Referred By Contac t Referred To Contact [facility] [place] Diagnoses Stage 4 very severe COPD by GOLD classification ([facility]) Chronic hypoxemic respiratory failure ([facility]) Procedures OXIMETRY WITH AMBULATION NONINVASIVE EAR/PULSE OXIMETRY MULTIPLE DETER Helen Newman PA-C [address] [place] [address] [address] Referral ID Status Reason Start Date Expiration Date V isits Requested Visits Authorized [id number] Closed Auto-Generate d Referral 08/29/2023 09/27/2024 1 1 Reason Comments Established Patient 6 month follow up [place] Reason Onset Date Comments Refill Request 04/10/2024 Reason Comments Med Change Request Reason Comments Radiology CT Specialty Diagnoses / Procedures Referred By Contac t Referred To Contact CT IMAGING Diagnoses Lung nodules Procedures CT CHEST WO IVCON DIAGNOSTIC COMPUTED TOMOGRAPHY THORAX W/O CNTRST Nathalie Mojica, AUTOMOBILE TRAVEL CLUB COUNSELOR.STEEL RIGGER [address] [place] [id number] Ct [address] [facility]95 Referral ID Status Reason Start Date Expiration Date V isits Requested Visits Authorized [id number] Closed Auto-Generate d Referral 05/01/2023 05/30/2024 1 [...] Specialty Diagnoses / Procedures Referred By Trever ashley Referred To Contact CT IMAGING Diagnoses Lung nodules Procedures CT CHEST WO IVCON DIAGNOSTIC COMPUTED TOMOGRAPHY THORAX W/O CNTRST Nathalie Mojica, AUTOMOBILE TRAVEL CLUB COUNSELOR.STEEL RIGGER [address] [place] [address] Phone: tel: fax: [facility] IMAGING [facility]95 Referral ID Status Reason Start Date Expiration Date V isits Requested Visits Authorized [id number] Closed Auto-Generate d Referral 05/27/2024 06/26/2025 1 1 Reason Onset Date Comments Refill Request 11/27/2024 Reason Onset Date Comments Refill Request 01/15/2025 Reason Comments Shortness of Breath Pt is pursed lip roxanna athing, Shortness of Breath, wheeze, x 2-3 weeks Care Teams (unrecognized sec tion and content) Auto Adjudication Specialist Relationship Specialty Start Date End Date Alberto Avelar MD [address] [place], [place] [id number] PCP - General Family Practice 11/11/10 Auto Adjudication Specialist Relationship Specialty Start Date End Date Alberot Avelar MD [address] [place], [place] [id number] PCP - General Family Practice 11/11/10 Auto Adjudication Specialist Relationship Specialty Start Date End Date Alberto Avelar MD [address] [facility] [place] [address] PCP - General Family Practice 11/11/10 Auto Adjudication Specialist Relationship Specialty Start Date End Date Alberto Avelar MD [address] [facility] [place] [address] PCP - General Family Practice 11/11/10 Auto Adjudication Specialist Relationship Specialty Start Date End Date Alberto Avelar MD [address] [facility] [place] [address] PCP - General Family Practice 11/11/10 Auto Adjudication Specialist Relationship Specialty Start Date End Date Alberto Avelar MD [facility] [place] [address] PCP - General Family Practice 11/11/10 Auto Adjudication Specialist Relationship Specialty Start Date End Date Alberto Avelar MD [facility] [place] [address] PCP - General Family Practice 11/11/10 Auto Adjudication Specialist Relationship Specialty Start Date End Date Alberto Avelar MD [facility] [place] [address] PCP - General Family Practice 11/11/10 Auto Adjudication Specialist Relationship Specialty Start Date End Date Alberto Avelar MD [facility] [place] [address] PCP - General Family Practice 11/11/10 Auto Adjudication Specialist Relationship Specialty Start Date End Date Alberto Avelar MD [address] [facility] [place] [address] PCP - General Family Practice 11/11/10 Auto Adjudication Specialist Relationship Specialty Start Date End Date Alberto Avelar MD [address] [facility] [place] [address] PCP - General Family Practice 11/11/10 Auto Adjudication Specialist Relationship Specialty Start Date End Date Alberto Avelar MD [address] [facility] [place] [address] PCP - General Family Practice 11/11/10 Auto Adjudication Specialist Relationship Specialty Start Date End Date Alberto Avelar MD [address] [facility] [place] [address] PCP - General Family Medicine 11/11/10 Auto Adjudication Specialist Relationship Specialty Start Date End Date Alberto Avelar MD [address] [facility] [place] [address] PCP - General Family Medicine 11/11/10 Auto Adjudication Specialist Relationship Specialty Start Date End Date Alberto Avelar MD [address] [facility] [place] [address] PCP - General Family Medicine 11/11/10 Auto Adjudication Specialist Relationship Specialty Start Date End Date Alberto Avelar MD [address] [facility] [place] [address] PCP - General Family Medicine 11/11/10 Auto Adjudication Specialist Relationship Specialty Start Date End Date Alberto Avelar MD [address] [facility] [place] [address] PCP - General Family Medicine 11/11/10 Auto Adjudication Specialist Relationship Specialty Start Date End Date Alberto Avelar MD [address] [facility] [place] [address] PCP - General Family Medicine 11/11/10 Auto Adjudication Specialist Relationship Specialty Start Date End Date Alberto Avelar MD [address] [facility] [place] [address] PCP - General Family Medicine 11/11/10 Auto Adjudication Specialist Relationship Specialty Start Date End Date Alberto Avelar MD [address] [facility] [place] [address] PCP - General Family Medicine 11/11/10 Auto Adjudication Specialist Relationship Specialty Start Date End Date Alberto Avelar MD [address] [place] [address] PCP - General Family Medicine 11/11/10 Auto Adjudication Specialist Relationship Specialty Start Date End Date Alberto Avelar MD [address] [place] [address] PCP - General Family Medicine 11/11/10 Auto Adjudication Specialist Relationship Specialty Start Date End Date Alberto Avelar MD [address] [place] [address] PCP - General Family Medicine 11/11/10 Auto Adjudication Specialist Relationship Specialty Start Date End Date Alberto Avelar MD [address] [place] [address] PCP - General Family Medicine 11/11/10 Auto Adjudication Specialist Relationship Specialty Start Date End Date Alberto Avelar MD [address] [place] [address] PCP - General Family Medicine 11/11/10 Auto Adjudication Specialist Relationship Specialty Start Date End Date Alberto Avelar MD [address] [place] [address] PCP - General Family Medicine 11/11/10 Auto Adjudication Specialist Relationship Specialty Start Date End Date Alberto Avelar MD [address] [place] [address] PCP - General Family Medicine 11/11/10 Auto Adjudication Specialist Relationship Specialty Start Date End Date Alberto Avelar MD [address] [place] [address] PCP - General Family Medicine 11/11/10 Auto Adjudication Specialist Relationship Specialty Start Date End Date Alberto Avelar MD [address] [facility] [place] [address] PCP - General Family Medicine 11/11/10 Helen Newman PA-C [address] [place] [place] [address] Pulmonary and Critical Care Medicine 04/13/23 Auto Adjudication Specialist Relationship Specialty Start Date End Date Alberto Avelar MD [address] [place] [address] PCP - General Family Medicine 11/11/10 Helen Newman PA-C [address] [place] [address] Pulmonary and Critical Care Medicine 04/13/23 Auto Adjudication Specialist Relationship Specialty Start Date End Date Alberto Avelar MD [address] [place] [address] PCP - General Family Medicine 11/11/10 Helen Newman, PA-C [address] [place] [address] Pulmonary and Critical Care Medicine 04/13/23 Auto Adjudication Specialist Relationship Specialty Start Date End Date Alberto Avelar MD [address] [facility] [place] [address] PCP - General Family Medicine 11/11/10 Helen Newman PA-Sandra [address] [facility] [place] [address] Pulmonary and Critical Care Medicine 04/13/23 Auto Adjudication Specialist Relationship Specialty Start Date End Date Alberto Avelar MD [address] [facility] [place] [address] PCP - General Family Medicine 11/11/10 Helen Newman PA-C [address] [place] [address] Pulmonary and Critical Care Medicine 04/13/23 Auto Adjudication Specialist Relationship Specialty Start Date End Date Alberto Avelar MD [address] [facility] [place] [address] PCP - General Family Medicine 11/11/10 Helen Newman PA-C [address] [place] [address] Pulmonary and Critical Care Medicine 04/13/23 Auto Adjudication Specialist Relationship Specialty Start Date End Date Alberto Avelar MD [address] [facility] [place] [address] PCP - General Family Medicine 11/11/10 Helen Newman PA-C [address] [place] [address] Pulmonary and Critical Care Medicine 04/13/23 Auto Adjudication Specialist Relationship Specialty Start Date End Date Alberto Avelar MD [address] [facility] [place] [address] PCP - General Family Medicine 11/11/10 Helen Newman PA-C [address] [place] [address] Pulmonary and Critical Care Medicine 04/13/23 Auto Adjudication Specialist Relationship Specialty Start Date End Date Alberto Avelar MD [address] [place] [address] PCP - General Family Medicine 11/11/10 Helen Newman PA-C [address] [place] [address] Pulmonary and Critical Care Medicine 04/13/23 Auto Adjudication Specialist Relationship Specialty Start Date End Date Alberto Avelar MD [address] [place] [address] PCP - General Family Medicine 11/11/10 Helen Newman PA-C [address] [place] [address] Pulmonary and Critical Care Medicine 04/13/23 Auto Adjudication Specialist Relationship Specialty Start Date End Date Alberto Avelar MD [address] [place] [address] PCP - General Family Medicine 11/11/10 Helen Newman PA-C [address] [place] [address] Pulmonary and Critical Care Medicine 04/13/23 Auto Adjudication Specialist Relationship Specialty Start Date End Date Alberto Avelar MD [address] [place] [address] PCP - General Family Medicine 11/11/10 Helen Newman PA-C [address] [place] [address] Pulmonary and Critical Care Medicine 04/13/23 Auto Adjudication Specialist Relationship Specialty Start Date End Date Alberto Avelar MD [address] [facility] [place] [address] PCP - General Family Medicine 11/11/10 Helen Newman PA-C [address] [place] [address] Pulmonary and Critical Care Medicine 04/13/23 Auto Adjudication Specialist Relationship Specialty Start Date End Date Alberto Avelar MD [address] [facility] [place] [address] PCP - General Family Medicine 11/11/10 Helen Newman PA-C [address] [place] [address] Pulmonary and Critical Care Medicine 04/13/23 Auto Adjudication Specialist Relationship Specialty Start Date End Date Alberto Avelar MD [address] [facility] [place] [address] PCP - General Family Medicine 11/11/10 Helen Newman PA-C [address] [place] [address] Pulmonary and Critical Care Medicine 04/13/23 Auto Adjudication Specialist Relationship Specialty Start Date End Date Alberto Avelar MD [address] [facility] [place] [address] PCP - General Family Medicine 11/11/10 Helen Newman PA-C [address] [place] [address] Pulmonary and Critical Care Medicine 04/13/23 Auto Adjudication Specialist Relationship Specialty Start Date End Date Alberto Avelar MD [address] [place] [address] PCP - General Family Medicine 11/11/10 Helen Newman PA-C [address] [place] [address] Pulmonary and Critical Care Medicine 04/13/23 Shalini Jacobo, DIOGO.STEEL RIGGER [address] [place] [address] Senior Datastage Developer [facility] 06/09/24 Auto Adjudication Specialist Relationship Specialty Start Date End Date Alberto Avelar MD [address] [facility] [place] [address] PCP - General Family Medicine 11/11/10 Helen Newman PA-C [address] [place] [address] Pulmonary and Critical Care Medicine 04/13/23 Shalini Jacobo, AUTOMOBILE TRAVEL CLUB COUNSELOR.STEEL RIGGER [address] [place] [address] Senior Datastage [facility] 06/09/24 Auto Adjudication Specialist Relationship Specialty Start Date End Date Alberto Avelar MD [address] [place] [address] PCP - General Family Medicine 11/11/10 Helen Newman PA-C [address] [place] [address] Pulmonary and Critical Care Medicine 04/13/23 Shalini Jacobo APRN.STEEL RIGGER [address] [place] [address] Senior Datastage Developer [facility] 06/09/24 Auto Adjudication Specialist Relationship Specialty Start Date End Date Alberto Avelar MD [address] [place] [address] PCP - General Family Medicine 11/11/10 Helen Newman PA-C [address] [place] [address] Pulmonary and Critical Care Medicine 04/13/23 Shalini Jacobo APRN.STEEL RIGGER [address] [place] [address] Senior Datastage [facility] 06/09/24 Gurmeet Tao APRN.STEEL RIGGER [address] [place] [address] Senior Datastage [facility] 06/18/24 Auto Adjudication Specialist Relationship Specialty Start Date End Date Alberto Avelar MD [address] [place] [address] PCP - General Family Medicine 11/11/10 Helen Newman PA-C [address] [place] [address] Pulmonary and Critical Care Medicine 04/13/23 Shalini Jacobo APRN.STEEL RIGGER [address] [facility] [place] [address] Senior Datastage Developer [facility] 06/09/24 Gurmeet Tao APRN.STEEL RIGGER [address] [place] [address] Senior Datastage Developer [facility] 06/18/24 Auto Adjudication Specialist Relationship Specialty Start Date End Date Alberto Avelar MD [address] [place] [address] PCP - General Family Medicine 11/11/10 Helen Newman, CHRISTIANE-C [address] [place] [address] Pulmonary and Critical Care Medicine 04/13/23 Shalini Jacobo APRN.STEEL RIGGER [address] [place] [address] Senior Datastage Developer[facility] 06/09/24 Gurmeet Tao APRN.STEEL RIGGER [address] [place] [address] Senior Datastage Developer[facility] 06/18/24 Auto Adjudication Specialist Relationship Specialty Start Date End Date Alberto Avelar MD [address] [place] [address] PCP - General Family Medicine 11/11/10 Helen Newman, CHRISTIANE-Sandra [address] [place] [address] Pulmonary and Critical Care Medicine 04/13/23 Shalini Jacobo APRN.STEEL RIGGER [address] [place] [address] Senior Datastage Developer[facility] 06/09/24 Gurmeet Tao APRN.STEEL RIGGER [address] [place] [address] Formerly [facility] 06/18/24 Auto Adjudication Specialist Relationship Specialty Start Date End Date Alberto Avelar MD [address] [place] [address] PCP - General Family Medicine 11/11/10 Helen Newman, PA-C [address] [place] [address] Pulmonary and Critical Care Medicine 04/13/23 Shalini Jacobo APRN.STEEL RIGGER [address] [place] [address] Formerly [facility] 06/09/24 Gurmeet Tao APRN.STEEL RIGGER [address] [place] [address] Formerly [facility] 06/18/24 Auto Adjudication Specialist Relationship Specialty Start Date End Date Alberto Avelar MD [address] [place] [address] PCP - General Family Medicine 11/11/10 Helen Newman, PA-C [address] [place] [address] Pulmonary and Critical Care Medicine 04/13/23 Shalini Jacobo APRN.STEEL RIGGER [address] [place] [address] Formerly [facility] 06/09/24 Gurmeet Tao APRN.STEEL RIGGER [address] [place] [address] Formerly [facility] 06/18/24 Auto Adjudication Specialist Relationship Specialty Start Date End Date Alberto Avelar MD [address] [place] [address] PCP - General Family Medicine 11/11/10 Helen Newman, PA-C [address] [place] [address] Pulmonary and Critical Care Medicine 04/13/23 Shalini Jacobo APRN.STEEL RIGGER [address] [place] [address] Formerly [facility] 06/09/24 Gurmeet Tao APRN.STEEL RIGGER [address] [place] [address] Formerly [facility] 06/18/24 Auto Adjudication Specialist Relationship Specialty Start Date End Date Alberto Avelar MD [address] [place] [address] PCP - General Family Medicine 11/11/10 Helen Newman, PA-C [address] [place] [address] Pulmonary and Critical Care Medicine 04/13/23 Shalini Jacobo APRN.STEEL RIGGER [address] [place] [address] Formerly [facility] 06/09/24 Gurmeet Tao APRN.STEEL RIGGER [address] [facility] [place] [address] Senior Datastage Developer[facility] 06/18/24 Auto Adjudication Specialist Relationship Specialty Start Date End Date Alberto Avelar MD [address] [facility] [place] [address] PCP - General Family Medicine 11/11/10 Helen Newman, PA-C [address] [place] [address] Pulmonary and Critical Care Medicine 04/13/23 Shalini Jacobo APRN.STEEL RIGGER [address] [place] [address] Senior Datastage Developer[facility] 06/09/24 Gurmeet Tao APRN.STEEL RIGGER [address] [facility] [place] [address] Formerly [facility] 06/18/24 Auto Adjudication Specialist Relationship Specialty Start Date End Date Alberto Avelar MD [address] [place] [address] PCP - General Family Medicine 11/11/10 Helen Newman, PA-C [address] [place] [address] Pulmonary and Critical Care Medicine 04/13/23 Shalini Jacobo APRN.STEEL RIGGER [address] [place] [address] Formerly [facility] 06/09/24 Gurmeet Tao APRN.STEEL RIGGER [address] [facility] [place] [address] Senior Datastage DeveloperChildren[facility] 06/18/24 Auto Adjudication Specialist Relationship Specialty Start Date End Date Alberto Avelar MD [address] [place] [address] PCP - General Family Medicine 11/11/10 Helen Newman PA-C [address] [place] [address] Pulmonary and Critical Care Medicine 04/13/23 Shalini Jacobo APRN.STEEL RIGGER [address] [place] [address] Senior Datastage DeveloperChildren[facility] 06/09/24 Gurmeet Tao APRN.STEEL RIGGER [address] [place] [address] [facility] 06/18/24 Auto Adjudication Specialist Relationship Specialty Start Date End Date Alberto Avelar MD [address] [place] [address] PCP - General Family Medicine 11/11/10 Helen Newman PA-C [address] [place] [address] Pulmonary and Critical Care Medicine 04/13/23 Shalini Jacobo APRN.STEEL RIGGER [address] [place] [address] Senior Datastage [facility]Children[facility] 06/09/24 Gurmeet Tao APRN.STEEL RIGGER [address] [place] [address] Senior Datastage Developer Family Medicine 06/18/24 Auto Adjudication Specialist Relationship Specialty Start Date End Date Alberto Avelar MD [address] [place] [address] PCP - General Family Medicine 11/11/10 Helen Newman, CHRISTIANE-C [address] [place] [address] Pulmonary and Critical Care Medicine 04/13/23 Shalini Jacobo APRN.STEEL RIGGER [address] [place] [address] Senior Datastage Developer Family Medicine 06/09/24 Gurmeet Tao APRN.STEEL RIGGER [address] [place] [address] Senior Datastage Developer Family Medicine 06/18/24 Auto Adjudication Specialist Relationship Specialty Start Date End Date Alberto Avelar MD [address] [place] [address] PCP - General Family Medicine 11/11/10 Helen Newman, PA-Sandra [address] [place] [address] Pulmonary and Critical Care Medicine 04/13/23 Shalini Jacobo AUTOMOBILE TRAVEL CLUB COUNSELOR.STEEL RIGGER [address] [place] [address] Senior Datastage Developer Family Medicine 06/09/24 Gurmeet Tao APRN.STEEL RIGGER [address] [place] [address] Senior Datastage Developer Family Medicine 06/18/24 Auto Adjudication Specialist Relationship Specialty Start Date End Date Alberto Avelar MD [address] [place] [address] PCP - General Family Medicine 11/11/10 Helen Newman PA-C [address] [place] [address] Pulmonary and Critical Care Medicine 04/13/23 Shalini Jacobo AUTOMOBILE TRAVEL CLUB COUNSELOR.STEEL RIGGER [address] [place] [address] Senior Datastage Developer Family Medicine 06/09/24 Gurmeet Tao AUTOMOBILE TRAVEL CLUB COUNSELOR.STEEL RIGGER [address] [place] [address] Senior Datastage DeveloperChildren[facility] 06/18/24 Auto Adjudication Specialist Relationship Specialty Start Date End Date Alberto Avelar MD [address] [place] [address] PCP - General Family Medicine 11/11/10 Helen Newman, CHRISTIANE-Sandra [address] [place] [address] Pulmonary and Critical Care Medicine 04/13/23 Shalini Jacobo, AUTOMOBILE TRAVEL CLUB COUNSELOR.STEEL RIGGER [address] [place] [address] Senior Datastage Developer Family Medicine 06/09/24 Gurmeet Tao AUTOMOBILE TRAVEL CLUB COUNSELOR.STEEL RIGGER [address] [place] [address] [facility] Medicine 06/18/24 Auto Adjudication Specialist Relationship Specialty Start Date End Date Alberto Avelar MD [address] [place] [address] PCP - General Family Medicine 11/11/10 Helen Newman PA-C [address] [place] [address] Pulmonary and Critical Care Medicine 04/13/23 Gurmeet Tao APRN.STEEL RIGGER [address] [place] [address] Senior Datastage DeveloperChildren[facility] 06/18/24 Auto Adjudication Specialist Relationship Specialty Start Date End Date Alberto Avelar MD [address] [place] [address] PCP - General Family Medicine 11/11/10 Helen Newman PA-C [address] [place] [address] Pulmonary and Critical Care Medicine 04/13/23 Gurmeet Tao APRN.STEEL RIGGER [address] [facility] [place] [address] Senior Datastage DeveloperChildren[facility] 06/18/24 Auto Adjudication Specialist Relationship Specialty Start Date End Date Alberto Avelar MD [address] [place] [address] PCP - General Family Medicine 11/11/10 Helen Newmna PA-C [address] [place] [address] Pulmonary and Critical Care Medicine 04/13/23 Gurmeet Tao APRN.STEEL RIGGER [address] [place] [address] [facility]ly [facility] 06/18/24 Auto Adjudication Specialist Relationship Specialty Start Date End Date Alberto Avlear MD [address] [facility] [place] [address] PCP - General Family Medicine 11/11/10 Helen Newman PA-C [address] [place] [address] Pulmonary and Critical Care Medicine 04/13/23 Gurmeet Tao APRN.STEEL RIGGER [address] [facility] [place] [address] Senior Datastage Developer [facility] 06/18/24 Auto Adjudication Specialist Relationship Specialty Start Date End Date Alberto Avelar MD [address] [facility] [place] [address] PCP - General Family Medicine 11/11/10 Helen Newman PA-C [address] [place] [address] Pulmonary and Critical Care Medicine 04/13/23 Gurmeet Tao APRN.STEEL RIGGER [address] [facility] [place] [address] Senior Datastage Developer [facility] 06/18/24 Auto Adjudication Specialist Relationship Specialty Start Date End Date Alberto Avelar MD [address] [facility] [place] [address] PCP - General Family Medicine 11/11/10 Helen Newman PA-C [address] [place] [address] Pulmonary and Critical Care Medicine 04/13/23 Gurmeet Toa APRN.STEEL RIGGER [address] [facility] [place] [address] Senior Datastage DeveloperChildren[facility] 06/18/24 Auto Adjudication Specialist Relationship Specialty Start Date End Date Alberto Avelar MD [address] [facility] [place] [address] PCP - General Family Medicine 11/11/10 Helen Newman PA-C [address] [place] [address] Pulmonary and Critical Care Medicine 04/13/23 Gurmeet Tao APRN.STEEL RIGGER [address] [facility] [place] [address] Formerly [facility] 06/18/24 Auto Adjudication Specialist Relationship Specialty Start Date End Date Alberto Avelar MD [address] [facility] [place] [address] PCP - General Family Medicine 11/11/10 Helen Newman PA-C [address] [place] [address] Pulmonary and Critical Care Medicine 04/13/23 Gurmeet Tao APRN.STEEL RIGGER [address] [facility] [place] [address] Senior Datastage DeveloperChildren[facility] 06/18/24 Auto Adjudication Specialist Relationship Specialty Start Date End Date Alberto Avelar MD [address] [facility] [place] [address] PCP - General Family Medicine 11/11/10 Helen Newman PA-C [address] [place] [address] Pulmonary and Critical Care Medicine 04/13/23 Gurmeet Tao APRN.STEEL RIGGER [address] [place] [address] Senior Datastage Developer Family Medicine 06/18/24 Team Status: Active Member Role/Relationship Status Dates Dr. Alberto Avelar MD Primary Care Provider Active Team Status: Active Member Role/Relationship Status Dates Dr. Alberto Avelar MD Primary Care Provider Active Start: February 21, 2025 Dr. Haider Yee DO Emergency Provider Active Start: February 21, 2025 Dr. Lynn Duke MD Admit Provider Active St art: February 21, 2025 Dr. Lynn Duke MD Attending Provider Active Start: February 21, 2025 (unrecognized sect ion and content) No Status Records FoundNo Status Records FoundNo Status Records FoundNo Status Records Found INFORMATION SOURCE (unrecogn ized section and content) DATE CREATED AUTHOR 05/02/2023 [facility] DATE CREATED AUTHOR AUTHOR'S ORGANIZ ATION 08/03/2024 [facility] DATE CREATED AUTHOR AUTHOR'S ORGANIZ ATION 10/29/2024 [facility] DATE CREATED AUTHOR AUTHOR'S ORGANIZ ATION 11/20/2024 [facility] Goals (unrecognized section and content) Goals may be documented in a n alternate section FOR RECORDS PERTAINING TO PATIENTS WHO ARE [...] BE BASED ON THE PRIMARY CLINICAL RECORDS. [facility] [facility]. provides no warranty or guarantee of the accuracy or completeness of information in this document.
[2025-02-22 07:36] LABS: Hematocrit 37.8 % (40-54); Hemoglobin 12.7 g/dL (13.0-16.5); Immature Granulocytes Count 0.030 X10^3/uL (0.0-0.0); Mean Corp Hgb Conc 33.6 g/dL (32-36); Mean Corpuscular Volume 90.6 fL (80-94); Mean Platelet Vol. 8.8 fl (6.2-12.0); NRBC Flagged by Analyzer 0 % (0-5); Platelet Count 332 K/mm3 (150-450); RBC Distribution Width CV 12.6 % (11.6-14.6); RBC Distribution Width SD 41.9 fl (35.1-43.9); Red Blood Count 4.17 M/mm3 (4.6-6.2); White Blood Count 8.6 K/mm3 (4.4-11.0)
[2025-02-22 08:07] LABS: AST(SGOT) 20 U/L (<=37); Alanine Aminotransfer ALT/SGPT 20 U/L (<=46); Albumin, Serum 3.2 g/dL (3.5-5.0); Alkaline Phosphatase 71 U/L (40-129); Anion Gap 11 (5-15); BUN 8 mg/dL (4-19); BUN/Creat Ratio 16.0 RATIO (10-20); Calcium,Total 9.2 mg/dL (7.6-11.0); Carbon Dioxide 25.4 mmol/L (21.0-32.0); Chloride 104 mmol/L (98-108); Estimated Creatinine Clearance 128.61 ml/min (50-250); Globulin 3.7 g/dL (2.2-4.2); Glucose 134 mg/dL (70-99); Potassium 4.6 mmol/L (3.3-5.1)
--- OUTSIDE RECORDS SUMMARY | 2025-02-22 08:41 | XMS RPT_ITS | CCD ---
Author Organization [facility] Care Team Providers Care Motor Expert Name Role Phone Alberto Avelar MD Primary Care Provider Alberto Avelar MD Primary Care Provider Helen Newman PA-C Unavailable Alberto Avelar MD Primary Care Provider Tannhof PODIATRIST ASSISTANT.Shalini KUMAR Unavailable Aislinn PODIATRIST ASSISTANT.Gurmeet KUMAR Unavailable Hiram, Colton Attending Unavailable Elderbrock, Alberto Primary Care Unavailable Hiram, Colton Admitting Unavailable Hiram, Colton Attending Unavailable Hiram, Colton Admitting Unavailable Elderbrock, Alberto Primary Care Unavailable Hiram, Colton Consulting Unavailable Hiram, Colton Attending Unavailable Elderbrock, Alberto Primary Care Unavailable Tannhof PODIATRIST ASSISTANT.Shalini KUMAR Unavailable Unavail able Tannhof PODIATRIST ASSISTANT.Shalini KUMAR Unavailable MILY TAPIA Attending Unavailable ELDERBROCK, ALBERTO D Primary Care Unavailable ELDERBROCK, ALBERTO D Attending Unavailable SELF Referring Unavailable ELDERBROCK, ALBERTO D Primary Care Unavailable MILY TAPIA Referring Unavailable ELDERBROCK, ALBERTO D Primary Care Unavailable AISLINN, GURMEET Referring Unavailable ELDERBROCK, ALBERTO D Primary Care Unavailable IMLY TAPIA Attending Unavailable SELF Referring Unavailable ELDERBROCK, [...] Provider Dr. Haider Yee DO Emergency Provider [phone] Srikanth SANDERS, Dr. Lynn Jones Admit Provider [phone] Dr. Lynn Duke MD Attending Provider Allergies Allergy Classification Reported Allergen(s) Allergy Type Date of Onset Reaction(s) Facility Acetaminophen / HYDROcodone (1 source) Acetaminophen / HYDROcodone Drug Allergy 1 Mental Status Change [facility] Opioid Agonists (1 source) Codeine Drug Allergy 6 Unknown [facility] (20 sources) Acetaminophen / HYDROcodone; Translations: [HYDROCODONE-ACET AMINOPHEN] Drug Allergy 1 Mental Status Change [facility] (20 sources) Codeine; Translations: [CODEINE] Drug Allergy 6 Unknown [facility] (20 sources) environmental [Other] Propensity to adverse reactions 1 Other: See Comments [facility] (20 sources) Mold Extract; Translations: [MOLD] Drug Allergy 4 Other: See Comments [facility] (1 source) Codeine Drug Allergy 5 [facility] (1 source) Penicillins Drug allergy (disorder) 5 [facility] (1 source) OTHER; Translations: [OTHER] Propensity to adverse reactions (disorder) 1 [facility] [place] [facility] (1 source) Penicillins Allergy to substance 5 Unknown [facility] Medications Current Medications Medication Drug Class(es) Dates Sig (Normalized) Sig (Original) [id number] 200 actuat albuterol 0.09 mg/actuat metered dose [...] 2015 1:00am February 21, 2025 8:24pm [facility] Comment on above: Take 1 tablet [...] take 1 puff(s) by inhalation once daily pfefbvgiomk-mxiezadvp-o ilanter (TRELEGY ELLIPTA) 200-62.5-25 mcg inhalation powder Indications: Stage 4 very severe COPD by GOLD classification (HCC) , Asthma-COPD overlap syndrome (HCC) Inhale 1 puff as instructed once daily. 180 each 3 01/21/2025 01/21/2026 Active Start: 01-29-2024 End: 01-21-2025 take 1 puff(s) by inhalation once daily gjlvoxzeuxc-dpwkhnetq-sacazogu (TRELEGY ELLIPTA) 200-62.5-25 mcg inhalation powder Indications: Stage 4 very severe COPD by GOLD classification (HCC) , Asthma-COPD overlap syndrome (HCC) Inhale 1 Puff as instructed once daily. 180 Each 3 01/29/2024 01/21/2025 Discontinued Start: 01-29-2024 End: 01-28-2025 take 1 puff(s) by inhalation once daily gxqppubitki-lrzithmdh-bxxugrcx (TRELEGY ELLIPTA) 200-62.5-25 mcg inhalation powder Indications: Stage 4 very severe COPD by GOLD classification (HCC) , Asthma-COPD overlap syndrome (HCC) Inhale 1 Puff as instructed once daily. 180 Each 3 01/29/2024 01/28/2025 Active Start: 01-13-2023 End: 01-13-2024 take 1 puff(s) by inhalation once daily xzextnpoajr-jeqijfmhd-yklzigpk (TRELEGY ELLIPTA) 200-62.5-25 mcg inhalation powder Indications: Stage 4 very severe COPD by GOLD classification (HCC) , Asthma-COPD overlap syndrome Inhale 1 Puff as instructed once daily. 180 Each 3 01/13/2023 01/13/2024 Active Start: 01-13-2023 End: 01-13-2024 take 1 puff(s) by inhalation once daily ynxgmzthqzc-pttshtcgy-didwhmju (TRELEGY ELLIPTA) 200-62.5-25 mcg inhalation powder Indications: Stage 4 very severe COPD by GOLD classification (HCC) , Asthma-COPD overlap syndrome (HCC) Inhale 1 Puff as instructed once daily. 180 Each 3 01/13/2023 01/13/2024 Active Start: 11-14-2022 End: 01-13-2023 take 1 puff(s) by inhalation once daily ekqrflqgtmn-erwrodlop-fxlrcgws (TRELEGY ELLIPTA) 200-62.5-25 mcg inhalation powder Indications: Stage 4 very severe COPD by GOLD classification (HCC) , Asthma-COPD overlap syndrome (HCC) Inhale 1 Puff as instructed once daily. 1 Each 11/14/2022 01/13/2023 Discontinued Start: 11-14-2022 take 1 puff(s) by inhalation once daily ohtxrgtijjz-grxmxeqdd-sqqtrrtn (TRELEGY ELLIPTA) 200-62.5-25 mcg inhalation powder Indications: [...] above: TAKE 2 TABLETS BY [facility] TWICE A DAY levoFLOXacin 500 mg oral [...] take 1 dose by inhalation once daily Xzdxkangjna-Nhmuqegmc-Ammzdadl 1 EACH blister with device Discontinued 1 [...] Auto (Unsp spec) [#/Vol] 1.29 10*3/uL 0.83-4.51 [facility] Absolute neutrophil countOrd ered By: Stefanie Chin on 02-21-2025 Neutrophils (Bld) [#/Vol] 10.4 10*3/uL High 2.0-7.7 [facility] Anion gap in Serum or Plasma Ordered By: Stefanie Chin on 02-21-2025 Anion gap [Moles/Vol] 13 mmol/L 5-15 [facility] Automated lymphocyte count a s percentage of total leukocytesOrdered By: Stefanie Chin on 02-21-2025 Lymphocytes/100 WBC Auto (Unsp spec) 9.8 % Low 19-41 [facility] BUN/creatinine ratioOrdered By: Stefanie Chin on 02-21-2025 Urea nitrogen/Creatinine [Mass ratio] 10.8 mg/mg 10-20 [facility] Basophil percentageOrdered B y: Stefanie Chin on 02-21-2025 Basophils/100 WBC (Bld) 0.5 % 0-1 [facility] CO2 (BldV) [Moles/Vol]Ordere d By: Haider Yee on 02-21-2025 CO2 [Moles/Vol] 37 mmol/L High 23-33 [facility] Carbon dioxide, total [Moles /volume] in Central venous bloodOrdered By: Stefanie Chin on 02-21-2025 CO2 [Moles/Vol] 26.4 mmol/L 21.0-32.0 [facility] Chloride assayOrdered By: Reva Chin on 02-21-2025 Chloride [Moles/Vol] 101 mmol/L 98-108 [facility] Eosinophil percentageOrdered By: Stefanie Chin on 02-21-2025 Eosinophils/100 WBC (Bld) 1.7 % 0-5 [facility] Erythrocyte distribution wid th ratioOrdered By: Stefanie Chin on 02-21-2025 Erythrocyte distribution width (RBC) [Ratio] 12.8 % 11.6-14.6 [facility] Erythrocyte distribution wid th standard deviationOrdered By: Stefanie Chin on 02-21-2025 Erythrocyte distribution width (RBC) [Ratio] 42.0 fl 35.1-43.9 [facility] Glomerular filtration rate ( GFR) estimation/1.73 sq m using serum, plasma, or whole bOrdered By: Stefanie Chin on 02-21-2025 GFR/1.73 sq M.predicted among non-blacks MDRD (S/P/Bld) [Vol rate/Area] 108 mL/min/{1.73_m2} >60 [facility] Comment on above: mL/min/1.73m2 CKD-EP I Creatinine Equation (2020) [facility] deOrdered By: Haider Yee on 02-21-2025 Glucose [Mass/Vol] 92 mg/dL 74-106 [facility] Comment on above: MANAGEMENT OF PATIEN T CARE PER NURSING PROTOCOL Hematocrit Auto (Bld) [Volum e fraction]Ordered By: Stefanie Chin on 02-21-2025 Hematocrit (Bld) [Volume fraction] 42.1 % 40-54 [facility] Hemoglobin measurementOrdere d By: Stefanie Chin on 02-21-2025 Hemoglobin (Bld) [Mass/Vol] 14.2 g/dL 13.0-16.5 [facility] Immature granulocytes/100 WB C Auto (Bld)Ordered By: Stefanie Chin on 02-21-2025 Immature granulocytes/100 WBC (Bld) 0.400 % 0.0-0.9 [facility] Comment on above: IG% - Immature Granu locytes (promyelocytes, myelocytes and metamyelocytes) > 1% indicates that a LEFT SHIFT is Present. Lactic acid measurementOrder ed By: Stefanie Chin on 02-21-2025 Lactate [Moles/Vol] 1.3 mmol/L 0.0-2.0 [facility] MCV (mean corpuscular volume ) determinationOrdered By: Stefanie Chin on 02-21-2025 MCV (RBC) [Entitic vol] 90.0 fL 80-94 [facility] Mean corpuscular hemoglobin (MCH) determinationOrdered By: Stefanie Chin on 02-21-2025 MCH (RBC) [Entitic mass] 30.3 pg 27.0-32.0 [facility] Mean corpuscular hemoglobin concentration (MCHC) determinationOrdered By: Stefanie Chin on 02-21-2025 MCHC (RBC) [Mass/Vol] 33.7 g/dL 32-36 [facility] Mean platelet volume determi nationOrdered By: Stefanie Chin on 02-21-2025 Platelet mean volume (Bld) [Entitic vol] 9.3 fL 6.2-12.0 [facility] Monocyte percentageOrdered B y: Stefanie Chin on 02-21-2025 Monocytes/100 WBC (Bld) 9.0 % 0-10 [facility] Natriuretic peptide.B prohor hudson N-Terminal [Mass/volume] in Serum or PlasmaOrdered By: Haider Yee on 02-21-2025 Natriuretic peptide.B prohormone N-Terminal [Mass/Vol] 49 pg/mL <900 [facility] Comment on above: Heart Failure Unlike ly: < 300 pg/mLHeart Failure Likely< 50 Years: > 450 pg/mL50-75 Years: > 900 pg/mL>75 Years: > 1800 pg/mL Neutrophil percentageOrdered By: Stefanie Chin on 02-21-2025 Neutrophils/100 WBC (Bld) 78.6 % High 47-70 [facility] No Panel InformationOrdered By: Haider Yee on 02-21-2025 Blood Gas Sample Site Not entered [facility] Blood Gas Specimen Type BETO [facility] Oxygen Delivery Device Not entered [facility] Nucleated red blood cell per centageOrdered By: Stefanie Chin on 02-21-2025 Nucleated RBC/100 WBC (Bld) [Ratio] 0 % 0-5 [facility] Platelet countOrdered By: Reva Chin on 02-21-2025 Platelets (Bld) [#/Vol] 341 10*3/uL 150-450 [facility] Potassium measurement (mass/ volume)Ordered By: Stefanie Chin on 02-21-2025 Potassium (Unsp spec) [Mass/Vol] 3.9 mmol/L 3.3-5.1 [facility] RBC Auto (Bld) [#/Vol]Ordere d By: Stefanie Chin on 02-21-2025 RBC (Bld) [#/Vol] 4.68 10*6/uL 4.6-6.2 [facility] Serum creatinine measurement (mass/volume)Ordered By: Stefanie Chin on 02-21-2025 Creatinine [Mass/Vol] 0.68 mg/dL Low 0.70-1.20 [facility] Serum glucose measurement (m ass/volume)Ordered By: Stefanie Chin on 02-21-2025 Glucose [Mass/Vol] 93 mg/dL 70-99 [facility] Serum or plasma calcium harleen urement (mass/volume)Ordered By: Stefanie Chin on 02-21-2025 Calcium [Mass/Vol] 9.4 mg/dL 7.6-11.0 [facility] Serum or plasma urea nitroge n measurement (mass/volume)Ordered By: Stefanie Chin on 02-21-2025 Urea nitrogen [Mass/Vol] 7 mg/dL 4-19 [facility] Sodium levelOrdered By: Rodrick Chin on 02-21-2025 Sodium [Moles/Vol] 140 mmol/L 133-145 [facility] Troponin T.cardiac [Mass/vol ume] in Serum or Plasma by High sensitivity methodOrdered By: Stefanie Chin on 02-21-2025 Troponin T.cardiac High sensitivity method [Mass/Vol] 13 ng/L <22 [facility] Troponin T.cardiac High sensitivity method [Mass/Vol] 14 ng/L <22 [facility] Venous blood base excess galen surementOrdered By: Haider Yee on 02-21-2025 Base excess Calc (BldV) [Moles/Vol] 11 mmol/L High -1.0-3.5 [facility] Venous blood bicarbonate galen surementOrdered By: Haider Yee on 02-21-2025 HCO3 (Bld) [Moles/Vol] 35 mmol/L High 22-26 [facility] Venous blood oxygen saturati on measurementOrdered By: Haider Yee on 02-21-2025 Oxygen saturation in Blood 65 % 50-70 [facility] Venous blood pH measurementO rdered By: Haider Yee on 02-21-2025 pH (BldV) 7.41 [pH] 7.32-7.42 [facility] Venous blood partial pressur e of carbon dioxide measurementOrdered By: Haider Yee on 02-21-2025 CO2 (BldV) [Partial pressure] 56.0 mm[Hg] High 41-51 [facility] Venous blood partial pressur e of oxygen measurementOrdered By: Haider Yee on 02-21-2025 Oxygen (BldV) [Partial pressure] 34 mm[Hg] 25-40 [facility] White blood cell (WBC) count Ordered By: Stefanie Chin on 02-21-2025 WBC (Bld) [#/Vol] 13.2 10*3/uL High 4.4-11.0 [facility] CNOVon 11-18-2024 CNOV Office Visit (PULMWS ) -- KARLI DUKE ([id number]) 1965 M Date Time Provider Department 11/18/24 11:00 AM NATHALIE MOJICA PULHARSHIL During your visit today, we recorded the following information about you: Pulse Respiration 61/minute 19/minute Nathalie Mojica APRN.CNP 11/18/2024 1:24 PM Signed [facility] INCIDENTAL LUNG NODULE PROGRAM Impression / Recommendations 1. Lung nodules (Primary) JANNET nodule of concern is resolved. All other nodules are small and stable. There are new inflammatory opacities in RML, RLL, and LLL. 2. Nicotine Dependence, Former: Continue to abstain from smoking cigarettes. 3. Stage 4 very severe COPD by GOLD classification ([facility]) Continue to follow up with cnp. On supplemental oxygen, Trelegy and singulair daily. Take prednisone and levaquin starting today. Reviewed instructions for nebulizers and albuterol use. Recommended Duoneb every 6 hours and budesonide nebulizer twice daily for the next few days then can transition to as needed. He may use albuterol inhaler every 4 hours in coordination with duoneb doses. Follow up with cnp if any new or continued symptoms. If [...] images. Pt had interval CTA Chest at [facility] 07/20/2024 and the JANNET 5 mm [...] 74.8 kg (165 lb)] Modified Medical Research Yocha Dehe Dyspnea Scale (MMRC) I am too breathless [...] inflammatory opa (more content not included)... Normal [facility] CT CHEST WO IVCONon 11-19-19 CT CHEST WO IVCON * * *Final Report* * * DATE OF EXAM: Nov 18 2024 11:10AM [facility] 0541 - CT CHEST WO IVCON [...] sho lymphadenopathy is seen within the chest. Metal Buildings Assembler: PSCB Transcribe Date/Time: Nov 19 2024 6:22A Dictated by : KAELA HAND MD This examination was interpreted and the report reviewed and electronically signed by: KAELA HAND MD on Nov 19 2024 6:28AM EST [id number] Normal [facility] KARLI DUKE ([id number]) 1965 M Date Time Provider Department 10/28/24 DIAN VILLARREAL During your visit today, we recorded the following information about you: Dian Villarreal, Hvac R Tech 10/28/2024 2:44 PM Signed Called patient regarding pulmonary rehab program. Patient answered and stated that they will give me a call back when they are interested. Patient has my phone number to call me back. [phone] Allergies As of Date: 10/28/2024 Noted Allergy Reaction CODEINE 01/05/2016 16 - Unknown MOLD 06/18/2024 14 - Other: See Comments VICODIN (HYDROCODONE-ACETAMINOPHE* 11/11/2010 1 - Mental Status Change Date Reviewed: 10/18/2024 Reviewed by: Mily Tapia APRN.MANGLE PRESS CATCHER - Fully Assessed Reason for Visit: Appointment [...] tablet by mouth daily at bedtime. - joudhjkclxo-qikqibmae-arvy nter (TRELEGY ELLIPTA) 200-62.5-25 mcg inhalation powder [...] elbow [S59.901A] 12/23/2013 SAH (subarachnoid hemorrhage) ([facility]) [I60.9] 01/05/2016 At risk for seizures [Z91.89] 01/05/2016 Acute headache [R51.9] 01/05/2016 Bleeding in brain due to brain aneurysm (HCC) [*01/05/2016 Tinea corporis [B35.4] 01/06/2016 Postoperative state [Z98.890] 01/07/2016 IVH (intraventricular hemorrhage) ([facility]) [I61.5] 01/07/2016 Brain aneurysm [I67.1] 01/07/2016 Malnutrition of mild degree (HCC) [E44.1] 01/12/2016 Pulmonary emphysema (HCC) [J43.9] 07/05/2016 Allergic rhinitis due to fungal spores [J30.89] 04/10/2018 Seasonal allergic rhinitis due to pollen [J30.1]04/10/2018 Screening for colon cancer [Z12.11] 04/03/2019 GHASSAN on CPAP [G47.33] 12/30/2021 Encounter Status:Closed by DIAN VILLARREAL on 10/28/24 [facility] 10-21-2024 [facility] Telephone (JANELLE) -- KARLI DUKE ([id number]) 1965 M Date Time Provider Department 10/21/24 DIAN VILLARREAL During your visit today, we recorded the following information about you: Dian Villarreal, Hvac R Tech 10/21/2024 1:18 PM Signed Called patient regarding pulmonary rehab program. Patient did not answer, so I left a message on [employer] with instructions on how to contact me. [phone] Allergies As of Date: 10/21/2024 Noted Allergy Reaction CODEINE 01/05/2016 16 - Unknown MOLD 06/18/2024 14 - Other: See Comments VICODIN (HYDROCODONE-ACETAMINOPHE* 11/11/2010 1 - Mental Status Change Date Reviewed: 10/18/2024 Reviewed by: Mily Tapia, DIOGO.MANGLE PRESS CATCHER - Fully Assessed Reason for Visit: Appointment [...] tablet by mouth daily at bedtime. - gstkvhfajov-qaktfplwy-vfnz nter (TRELEGY ELLIPTA) 200-62.5-25 mcg inhalation powder [...] elbow [S59.901A] 12/23/2013 SAH (subarachnoid hemorrhage) ([facility]) [I60.9] 01/05/2016 At risk for seizures [Z91.89] 01/05/2016 Acute headache [R51.9] 01/05/2016 Bleeding in brain due to brain aneurysm (HCC) [*01/05/2016 Tinea corporis [B35.4] 01/06/2016 Postoperative state [Z98.890] 01/07/2016 IVH (intraventricular hemorrhage) ([facility]) [I61.5] 01/07/2016 Brain aneurysm [I67.1] 01/07/2016 Malnutrition of mild degree (HCC) [E44.1] 01/12/2016 Pulmonary emphysema (HCC) [J43.9] 07/05/2016 Allergic rhinitis due to fungal spores [J30.89] 04/10/2018 Seasonal allergic rhinitis due to pollen [J30.1]04/10/2018 Screening for colon cancer [Z12.11] 04/03/2019 GHASSAN on CPAP [G47.33] 12/30/2021 Encounter Status:Closed by DIAN VILLARREAL on 10/21/[address] [facility] 08-01-2024 CN Office Visit (FAMPWS ) -- KARLI DUKE ([id number]) 1965 M Date Time Provider Department 08/01/24 10:00 AM [facility] During your visit today, we recorded [...] distances due to his SOB and COPD. [facility] Hospital d/c summary: Discharge Diagnosis (1) COPD [...] Mucinex and levofloxacin. Advised follow-up he is cnp Dr. Millie Sánchez in 2 weeks. 2. [...] needed. Pantoprazole (more content not included)... Normal [facility] CNOVon 07-30-2024 CNOV Office Visit (PULMWS ) -- SRIKANTHKARLI David ([id number]) 1965 M Date Time Provider Department 07/30/24 1:00 PM MILY TAPIA PULMWS During your visit today, we recorded the following information about you: Pulse Respiration Blood pressure 85/minute 16/minute 122/72 Mily Tapia, PODIATRIST ASSISTANT.MANGLE PRESS CATCHER 07/30/2024 1:42 PM Signed Pulmonary Medicine Patients [...] albuterol. He presents today for hospital follow-up. [facility] 02/29/2024 with relatively stable respiratory symptoms. [...] Asthma COPD (chronic obstructive pulmonary disease) ([facility]) Very severe Dependence on continuous supplemental oxygen Other and unspecified hyperlipidemia SAH (subarachnoid hemorrhage) ([facility]) Sleep apnea Tobacco abuse Quit 2016. Allergies: [...] tablet by mouth three times a day. gbacionkcwk-ekditjnjv-ilcm nter 200-62.5-25 mcg inhalation powder Commonly known [...] right upper lobe groundglass opacity appear stable. Metal Buildings Assembler: FABIANA Transcribe Date/Time: May 22 2024 12:58P Dictated by : BIBI BOWER MD This examination was interpreted and the report reviewed and electronically signed by: BIBI BOWER MD on May 22 2024 1:04PM EST Results-Findings * * *Final Report* * * DATE OF EXAM: May 20 2024 11:37AM [facility] 0541 - CT CHEST WO IVCON / PROCEDURE REASON: Lung nodules * * * * Physician Interpretation * * * * EXAMINATION: CHEST CT (more content not included)... Normal [facility] metabolic 2000 panelon 07-30-2024 Albumin [Mass/Vol] 4.4 g/dL Normal 3.9-4.9 [facility] Comment on above: Order Comment: Speci men Type: BLOOD SPECIMENOrdering Facility: [facility] Address: [address] [place] [address] Performed By: #### 2 4323-8 ####[facility]CLIA [id number] [place] [address] [place] ALP [Catalytic activity/Vol] 81 U/L Normal 38-113 [facility] Comment on above: Order Comment: Speci men Type: BLOOD SPECIMENOrdering Facility: [facility] Address: [address] [place] [address] Performed By: #### 2 4323-8 ####[facility] [id number] [place] [address] [place] ALT [Catalytic activity/Vol] 84 U/L High 10-54 [facility] Comment on above: Order Comment: Speci men Type: BLOOD SPECIMENOrdering Facility: [facility] Address: [address] [place] [address] Performed By: #### 2 4323-8 ####[facility] [id number] [place] [address] [place] Anion gap [Moles/Vol] 11 mmol/L Normal 8-15 [facility] Comment on above: Order Comment: Speci men Type: BLOOD SPECIMENOrdering Facility: [facility] Address: [address] [place] [address] Performed By: #### 2 4323-8 ####[facility] [id number] [place] [address] [place] AST [Catalytic activity/Vol] 35 U/L Normal 14-40 [facility] Comment on above: Order Comment: Speci men Type: BLOOD SPECIMENOrdering Facility: [facility] Address: [address] [place] [address] Performed By: #### 2 4323-8 ####[facility] JAK MILLTOWNCLIA [id number] [place] [address] [place] Bilirubin [Mass/Vol] 0.4 mg/dL Normal 0.2-1.3 [facility] Comment on above: Order Comment: Speci men Type: BLOOD SPECIMENOrdering Facility: [facility] Address: [address] [place] [address] Performed By: #### 2 4323-8 ####[facility] MILLTOWNCLIA [id number] [place] [address] [place] Calcium [Mass/Vol] 10.1 mg/dL Normal 8.5-10.2 [facility] Comment on above: Order Comment: Speci men Type: BLOOD SPECIMENOrdering Facility: [facility] Address: [address] [place] [address] Performed By: #### 2 4323-8 ####[facility]CL[facility] [id number] [place] [address] [place] Chloride [Moles/Vol] 96 mmol/L Low 98-107 [facility] Comment on above: Order Comment: Speci men Type: BLOOD SPECIMENOrdering Facility: [facility] Address: [address] [place] [address] Performed By: #### 2 4323-8 ####[facility] MILLTOWNCLIA [id number] [place] [address] [place] CO2 [Moles/Vol] 33 mmol/L High 22-30 [facility] Comment on above: Order Comment: Speci men Type: BLOOD SPECIMENOrdering Facility: [facility] Address: [address] [place] [address] Performed By: #### 2 4323-8 ####[facility]ITALWNCLIA [id number] [place] [address] [place] Creatinine [Mass/Vol] 0.81 mg/dL Normal 0.73-1.22 [facility] Comment on above: Order Comment: Marquita ortiz Type: BLOOD SPECIMENOrdering Facility: [facility] Address: [address] [place] [address] Performed By: #### 2 4323-8 ####[facility] [id number] [place] [address] [place] Creatinine and Glomerular filtration rate.predicted panel (S/P/Bld) 103 mL/min/1.73m??? Normal >=60 [facility] Comment on above: Order Comment: Marquita ortiz Type: BLOOD SPECIMENOrdering Facility: [facility] Address: [address] [place] [address] Result Comment: Abigail mated Glomerular Filtration Rate [...] By: #### 2 4323-8 ####[facility] [id number] [place] [address] [place] Glucose [Mass/Vol] 120 mg/dL High 74-99 [facility] Comment on above: Order Comment: Marquita ortiz Type: BLOOD SPECIMENOrdering Facility: [facility] Address: [address] [place] [address] Result Comment: The [place] Diabetes Association (ADA) provides guidance for cutoff [...] Standards of Medical Care in Diabetes 2016, [place] Diabetes Association. Diabetes Care. 2016.39(Suppl 1). Performed By: #### 2 4323-8 ####[facility] JOCELINEDYLAN [id number] [place] [address] [place] Potassium [Moles/Vol] 3.8 mmol/L Normal 3.7-5.1 [facility] Comment on above: Order Comment: Speci men Type: BLOOD SPECIMENOrdering Facility: [facility] Address: [address] [place], [place] [id number] Performed By: #### 2 4323-8 ####[facility] [id number] [place] [address] [place] Protein [Mass/Vol] 7.3 g/dL Normal 6.3-8.0 [facility] Comment on above: Order Comment: Speci men Type: BLOOD SPECIMENOrdering Facility: [facility] Address: [address] [place] [address] Performed By: #### 2 4323-8 ####[facility] [id number] [place] [address] [place] Sodium [Moles/Vol] 140 mmol/L Normal 136-144 [facility] Comment on above: Order Comment: Speci men Type: BLOOD SPECIMENOrdering Facility: [facility] Address: [address] [place] [address] Performed By: #### 2 4323-8 ####[facility] [id number] [place] [address] [place] Urea nitrogen [Mass/Vol] 14 mg/dL Normal 9-24 [facility] Comment on above: Order Comment: Speci men Type: BLOOD SPECIMENOrdering Facility: [facility] Address: [address] [place] [address] Performed By: #### 2 4323-8 ####[facility] [id number] [place] [id number] [place] LIPID PANEL, NONFASTINGon Cholesterol [Mass/Vol] 232 mg/dL High <200 [facility] Comment on above: Order Comment: Speci men Type: BLOOD SPECIMENOrdering Facility: [facility] Address: [address] [place] [address] Result Comment: <200 mg/dL, Desirable 200-239 mg/dL, Borderline high >239 mg/dL, High Performed By: #### L IPNF ####[facility] LABCLIA [id number] [place] [address] [place] HDL CHOLESTEROL, NF 46 mg/dL Normal >39 [facility] Comment on above: Order Comment: Speci men Type: BLOOD SPECIMENOrdering Facility: [facility] Address: [address] [place] [address] Result Comment: 40-5 9 mg/dL, Acceptable >59 mg/dL, High: Negative risk factor for coronary heart disease <40 mg/dL, Low: Positive risk factor for coronary heart disease Performed By: #### L IPNF ####[facility] LABCLIA [id number] [place] [address] [place] LDL CHOLESTEROL, NF 134 mg/dL High <100 [facility] Comment on above: Order Comment: Speci men Type: BLOOD SPECIMENOrdering Facility: [facility] Address: [address] [place] [address] Result Comment: <100 mg/dL, Optimal 100-129 mg/dL, Near optimal/above optimal 130-159 mg/dL, Borderline high 160-189 mg/dL, High >189 mg/dL, Very high Secondary prevention optimal LDL Cholesterol levels are recommended to be < 70 mg/dL Performed By: #### L IPNF ####[facility] LABCLIA [id number] [place] [address] [place] LDL/HDL RATIO, NF 2.91 mg/dL High <2.54 [facility] Comment on above: Order Comment: Speci men Type: BLOOD SPECIMENOrdering Facility: [facility] Address: [address] [place] [address] Result Comment: Rye valdez: 1. National Cholesterol Education Program ATP III Guideline At-A-Glance Quick Desk Reference: National Heart, Lung, and Blood [place]. National Institutes of Health. 2001: NIH Publication No. 01-3305. 2. An International Atherosclerosis Society position paper: global recommendations for the management of dyslipidemia: executive summary, Atherosclerosis. 2014: 232(2):410-413. Performed By: #### L IPNF ####[facility] LABCLIA [id number] [address] [place] NON HDL CHOL, NF 186 mg/dL High <130 [facility] Comment on above: Order Comment: Crcici ortiz Type: BLOOD SPECIMENOrdering Facility: [facility] Address: [address] [place] [address] Result Comment: <130 mg/dL, Optimal 130-159 mg/dL, Near optimal/above optimal 160-189 mg/dL, Borderline high 190-219 mg/dL, High >219 mg/dL, Very high Secondary prevention optimal non HDL Cholesterol levels are recommended to be <100 mg/dL Performed By: #### L IPNF ####[facility] LABCLIA [id number] [place] [address] [place] T CHOL/HDL RATIO NF 5.04 mg/dL Normal <5.10 [facility] Comment on above: Order Comment: Speci men Type: BLOOD SPECIMENOrdering Facility: [facility] Address: [address] [place] [address] Performed By: #### L IPNF ####[facility] LABCLIA [id number] [place] [address] [place] TRIGLYCERIDES, NF 262 mg/dL High <150 [facility] Comment on above: Order Comment: Speci men Type: BLOOD SPECIMENOrdering Facility: [facility] Address: [address] [place] [address] Result Comment: <150 mg/dL, Normal 150-199 mg/dL, Borderline high 200-499 mg/dL, High >499 mg/dL, Very high Performed By: #### L IPNF ####[facility] LABCLIA [id number] [place] [address] [place] VLDL CHOLESTEROL, NF 52 mg/dL High <30 [facility] Comment on above: Order Comment: Speci men Type: BLOOD SPECIMENOrdering Facility: [facility] Address: [address] [place] [address] Performed By: #### L IPNF ####[facility] LABCLIA [id number] [place] [address] [place] PSA/PROSTATE SPECIFIC ANTIGE N SCREENINGon 07-30-2024 Prostate specific Ag [Mass/Vol] 0.62 ng/mL Normal <2.60 [facility] Comment on above: Order Comment: Speci men Type: BLOOD SPECIMENOrdering Facility: [facility] Address: [address] [place] [address] Result Comment: Jonathan jones PSA test methodology used is the Electrochemiluminescence Immunoassay by [employer]. Total PSA values by differing methodologies cannot be interchanged. Performed By: #### P SAS1 ####[facility] LABIA [id number] [place] [address] [place] XR CHEST 2V [...] and soft tissues: Unremarkable. IMPRESSION: As above [employer] Buildings Assembler: PSCB Transcribe Date/Time: Jul 30 2024 2:36P Dictated by : CAROLIN PARKER MD This examination was interpreted and the report reviewed and electronically signed by: CAROLIN PARKER MD on Jul 30 2024 2:43PM EST [id number] Normal [facility] XR Chest PA and Lateralon IMPRESSION: As above Metal Buildings Assembler: PSCB Transcribe Date/Time: Jul 30 2024 2:36P [...] DIVISION OF RADIOLOGY Provider, [facility] [place] - 07/30/2024 * * *Final Report* * [...] soft tissues: Unremarkable. IMPRESSION IMPRESSION: As above Metal Buildings Assembler: PSCB Transcribe Date/Time: Jul 30 2024 2:36P Dictated by : CAROLIN PARKER MD This examination was interpreted and the report reviewed and electronically signed by: CAROLIN PARKER MD on Jul 30 2024 2:43PM EST [facility] Radiology Study observation (narrative) [facility] XR Chest PA and LateralOrder ed By: [facility] Provider on 07-30-2024 [facility] Culture, Blood (WB)on 2024 CUB Blood cultures x2, f rom two different sites No growth in 5 days. Normal [facility] Comment on above: Performed By: #### M 200.1000 #### [facility] [place], [address] Respiratory Cultureon 2024 RESPC Staphylococcus [...] S Vancomycin Islt ALL 1 S Normal [facility] Comment on above: Performed By: #### M 100.2400, #### [facility] [address] [place], [address] Gram Stainon 07-23-2024 GS Acceptable Specimen? Yes (<25 Epithelial cells per/lpf) Gram Stain 1+ Epithelial cells 1+ Gram positive cocci No White Blood Cells 2+ Gram variable elvin Normal [facility] Comment on above: Performed By: #### M 100.240, #### [facility] [address] [place], [address] Basic Metabolic Profile (BMP )on 07-22-2024 BUN/CRE 27.6 RATIO High 04-21 [facility] Comment on above: Performed By: #### M 100.2400, #### [facility] [address] [place], [address] CA,Total 9.3 mg/dL Normal 8.5-10.1 [facility] Comment on above: Performed By: #### M 100.240, #### [facility] [address] [place], [address] Chloride [Moles/Vol] 103 mmol/L Normal 98-107 [facility] Comment on above: Performed By: #### M 100.2400, #### [facility] [address] [place], [address] CO2 [Moles/Vol] 32.0 mmol/L Normal 21.0-32.0 [facility] Comment on above: Performed By: #### M 100.2400, #### [facility] [address] [place], [address] Creatinine [Mass/Vol] 0.69 mg/dL Low 0.70-1.30 [facility] Comment on above: Result Comment: The validity of the calculated GFR GFRAA in patients over 70 years has not been determined. Clinical correlation is essential. Performed By: #### M 100.2400, .1999 #### [facility] [address] [place], [address] ECRCL 96.21 ml/min Normal [facility] Comment on above: Performed By: #### M 100.2400, #### [facility] [address] [place], [address] EST GFR - AA 153 mL/min Normal >60 [facility] Comment on above: Result Comment: Afri can [place] GFR Calc Performed By: #### M 100.2400, .1999 #### [facility] [address] [place], [address] GAP 2 Low 5-15 [facility] Comment on above: Performed By: #### M 100.2400, #### [facility] [address] [place], [address] GFR/1.73 sq M.predicted among non-blacks MDRD (S/P/Bld) [Vol rate/Area] 126 mL/min/{1.73_m2} Normal >60 [facility] Comment on above: Result Comment: Non- GFR Calc Performed By: #### M 100.2400, .1999 #### [facility] [address] [place], [address] Glucose [Mass/Vol] 154 mg/dL High 74-106 [facility] Comment on above: Result Comment: Fast ing Glucose result greater than or equal to 126 mg/dL suggests DIABETES MELLITUS per A.D.A. criteria. Performed By: #### M 100.2400, #### [facility] [address] [place], [address] Potassium [Moles/Vol] 4.4 mmol/L Normal 3.5-5.1 [facility] Comment on above: Performed By: #### M 100.2400, #### [facility] [address] [place], [address] Sodium [Moles/Vol] 137 mmol/L Normal 136-145 [facility] Comment on above: Performed By: #### M 100.2400, #### [facility] [address] [place], [address] Urea nitrogen [Mass/Vol] 19 mg/dL High 7-18 [facility] Comment on above: Performed By: #### M 100.2400, #### [facility] [address] [place], [address] CBC W/Diff, Automatedon 01-2 0-2025 Absolute Lymph 1.06 X10 3/uL Normal 0.83-4.51 [facility] Comment on above: Performed By: #### L 100.0100, L500.2500 #### [facility] [address] [place], [address] Absolute Neut 16.7 X10 3/uL High 2.0-7.7 [facility] Comment on above: Performed By: #### L 100.0100, L500.2500 #### [facility] [address] [place], [address] Basophils/100 WBC (Bld) 0.1 % Normal 0-1 [facility] Comment on above: Performed By: #### L 100.0100, L500.2500 #### [facility] [address] [place], [address] Eosinophils/100 WBC (Bld) 0.0 % Normal 0-5 [facility] Comment on above: Performed By: #### L 100.0100, L500.2500 #### [facility] [address] [place], [address] Erythrocyte distribution width (RBC) [Ratio] 12.3 % Normal 11.6-14.6 [facility] Comment on above: Performed By: #### L 100.0100, L500.2500 #### [facility] [address] [place], [address] Hematocrit (Bld) [Volume fraction] 37.4 % Low 40-54 [facility] Comment on above: Performed By: #### L 100.0100, L500.2500 #### [facility] [address] [place], [address] Hemoglobin (Bld) [Mass/Vol] 12.3 g/dL Low 13.0-16.5 [facility] Comment on above: Performed By: #### L 100.0100, L500.2500 #### [facility] [address] [place], [address] IG% 0.700 Normal 0.0-0.9 [facility] Comment on above: Result Comment: IG% - Immature Granulocytes (promyelocytes, myelocytes and metamyelocytes) > 1% indicates that a LEFT SHIFT is Present. Performed By: #### L 100.0100, L500.2500 #### [facility] [address] [place], [address] Lymphocytes/100 WBC (Bld) 5.6 % Low 19-41 [facility] Comment on above: Performed By: #### L 100.0100, L500.2500 #### [facility] [address] [place], [address] MCH (RBC) [Entitic mass] 31.1 pg Normal 27.0-32.0 [facility] Comment on above: Performed By: #### L 100.0100, L500.2500 #### [facility] [address] [place], [address] MCHC (RBC) [Mass/Vol] 32.9 g/dL Normal 32-36 [facility] Comment on above: Performed By: #### L 100.0100, L500.2500 #### [facility] [address] [place], [address] MCV (RBC) [Entitic vol] 94.7 fL High 80-94 [facility] Comment on above: Performed By: #### L 100.0100, L500.2500 #### [facility] [address] [place], [address] Monocytes/100 WBC (Bld) 4.5 % Normal 0-10 [facility] Comment on above: Performed By: #### L 100.0100, L500.2500 #### [facility] [address] [place], [address] Neutrophils/100 WBC (Bld) 89.1 % High 47-70 [facility] Comment on above: Performed By: #### L 100.0100, L500.2500 #### [facility] [address] [place], [address] Nucleated RBC (Bld) [#/Vol] 0 10*3/uL Normal 0-5 [facility] Comment on above: Performed By: #### L 100.0100, L500.2500 #### [facility] [address] [place], [address] Platelet mean volume (Bld) [Entitic vol] 8.7 fL Normal 6.2-12.0 [facility] Comment on above: Performed By: #### L 100.0100, L500.2500 #### [facility] [address] [place], [address] Platelets (Bld) [#/Vol] 305 10*3/uL Normal 150-450 [facility] Comment on above: Performed By: #### L 100.0100, L500.2500 #### [facility] [address] [place], [address] RBC (Bld) [#/Vol] 3.95 10*6/uL Low 4.6-6.2 [facility] Comment on above: Performed By: #### L 100.0100, L500.2500 #### [facility] [address] [place], [address] RDW SD 42.8 fl Normal 35.1-43.9 [facility] Comment on above: Performed By: #### L 100.0100, L500.2500 #### [facility] [address] [place], [address] WBC (Bld) [#/Vol] 18.8 10*3/uL High 4.4-11.0 [facility] Comment on above: Performed By: #### L 100.0100, L500.2500 #### [facility] [address] [place], [address] Discharge Instructionon 07-04 Discharge Instruction [facility] Medical Records Department [address] [place] [address] Instructions for Home/Discharge Instructions 07/22/24 0940 MR#: [id number] Acct: [id number] Name: KARLI DUKE Rep #: [id number] : 1965 58 From: Colton Gandhi MD [...] Instructions / Restrictions: Follow-up with her own cnp Dr. Millie Sánchez in 2 weeks Discharge [...] 1 EACH tablet 1 ea PO DAILY gcaraagmqpk-jdfbxdklu-[id number] nter 1 EACH blister with device 1 [...] can be placed): Home, Self Care 07/22/24 3720 Colton Gandhi MD CC: Dr. Alberto Avelar MD Signed Normal [facility] Basic Metabolic Profile (BMP )on 07-21-2024 BUN/CRE 19.4 RATIO Normal 10-20 [facility] Comment on above: Performed By: #### M 100.240, #### [facility] [address] [place], [address] CA,Total 9.4 mg/dL Normal 8.5-10.1 [facility] Comment on above: Performed By: #### M 100.2399, #### [facility] [address] [place], [address] Chloride [Moles/Vol] 104 mmol/L Normal 98-107 [facility] Comment on above: Performed By: #### M 100.240, #### [facility] [address] [place], [address] CO2 [Moles/Vol] 28.0 mmol/L Normal 21.0-32.0 [facility] Comment on above: Performed By: #### M 100.2400, #### [facility] [address] [place], [address] Creatinine [Mass/Vol] 0.67 mg/dL Low 0.70-1.30 [facility] Comment on above: Result Comment: The validity of the calculated GFR GFRAA in patients over 70 years has not been determined. Clinical correlation is essential. Performed By: #### M 100.2400, #### [facility] [address] [place], [address] ECRCL 99.08 ml/min Normal [facility] Comment on above: Performed By: #### M 100.2400, #### [facility] [address] [place], [address] EST GFR - AA 158 mL/min Normal >60 [facility] Comment on above: Result Comment: Afri can [place] GFR Calc Performed By: #### M 100.2400, #### [facility] [address] [place], [address] GAP 4 Low 5-15 [facility] Comment on above: Performed By: #### M 100.240, #### [facility] [address] [place], [address] GFR/1.73 sq M.predicted among non-blacks MDRD (S/P/Bld) [Vol rate/Area] 130 mL/min/{1.73_m2} Normal >60 [facility] Comment on above: Result Comment: Non- GFR Calc Performed By: #### M .240, #### [facility] [address] [place], [address] Glucose [Mass/Vol] 168 mg/dL High 74-106 [facility] Comment on above: Result Comment: Fast ing Glucose result greater than or equal to 126 mg/dL suggests DIABETES MELLITUS per A.D.A. criteria. Performed By: #### M 100.240, #### [facility] [address] [place], [address] Potassium [Moles/Vol] 4.2 mmol/L Normal 3.5-5.1 [facility] Comment on above: Performed By: #### M 100.2400, #### [facility] [address] [place], [address] Sodium [Moles/Vol] 136 mmol/L Normal 136-145 [facility] Comment on above: Performed By: #### M 100.2400, #### [facility] [address] [place], [address] Urea nitrogen [Mass/Vol] 13 mg/dL Normal 7-18 [facility] Comment on above: Performed By: #### M 100.2400, #### [facility] [address] [place], [address] CBC W/Diff, Automatedon 07-03 Absolute Lymph 0.83 X10 3/uL Normal 0.83-4.51 [facility] Comment on above: Performed By: #### M 100.2400, #### [facility] [address] [place], [address] Absolute Neut 15.4 X10 3/uL High 2.0-7.7 [facility] Comment on above: Performed By: #### M 100.240, #### [facility] [address] [place], [address] Basophils/100 WBC (Bld) 0.1 % Normal 0-1 [facility] Comment on above: Performed By: #### M 100.2400, #### [facility] [address] [place], [address] Eosinophils/100 WBC (Bld) 0.0 % Normal 0-5 [facility] Comment on above: Performed By: #### M 100.240, #### [facility] [address] [place], [address] Erythrocyte distribution width (RBC) [Ratio] 12.2 % Normal 11.6-14.6 [facility] Comment on above: Performed By: #### M 100.2400, #### [facility] [address] [place], [address] Hematocrit (Bld) [Volume fraction] 39.6 % Low 40-54 [facility] Comment on above: Performed By: #### M 100.2400, #### [facility] [address] [place], [address] Hemoglobin (Bld) [Mass/Vol] 13.4 g/dL Normal 13.0-16.5 [facility] Comment on above: Performed By: #### M 100.240, #### [facility] [address] [place], [address] IG% 0.500 Normal 0.0-0.9 [facility] Comment on above: Result Comment: IG% - Immature Granulocytes (promyelocytes, myelocytes and metamyelocytes) > 1% indicates that a LEFT SHIFT is Present. Performed By: #### M 100.2400, #### [facility] [address] [place], [address] Lymphocytes/100 WBC (Bld) 4.9 % Low 19-41 [facility] Comment on above: Performed By: #### M 100.240, #### [facility] [address] [place], [address] MCH (RBC) [Entitic mass] 31.5 pg Normal 27.0-32.0 [facility] Comment on above: Performed By: #### M 100.240, #### [facility] [address] [place], [address] MCHC (RBC) [Mass/Vol] 33.8 g/dL Normal 32-36 [facility] Comment on above: Performed By: #### M 100.2400, #### [facility] [address] [place], [address] MCV (RBC) [Entitic vol] 93.0 fL Normal 80-94 [facility] Comment on above: Performed By: #### M 100.240, #### [facility] [address] [place], [address] Monocytes/100 WBC (Bld) 2.6 % Normal 0-10 [facility] Comment on above: Performed By: #### M 100.2400, #### [facility] [address] [place], [address] Neutrophils/100 WBC (Bld) 91.9 % High 47-70 [facility] Comment on above: Performed By: #### M 100.240, #### [facility] [address] [place], [address] Nucleated RBC (Bld) [#/Vol] 0 10*3/uL Normal 0-5 [facility] Comment on above: Performed By: #### M , #### [facility] [address] [place], [address] Platelet mean volume (Bld) [Entitic vol] 9.0 fL Normal 6.2-12.0 [facility] Comment on above: Performed By: #### M , #### [facility] [address] [place], [address] Platelets (Bld) [#/Vol] 294 10*3/uL Normal 150-450 [facility] Comment on above: Performed By: #### M .2399, #### [facility] [address] [place], [address] RBC (Bld) [#/Vol] 4.26 10*6/uL Low 4.6-6.2 [facility] Comment on above: Performed By: #### M 100.240, #### [facility] [address] [place], [place], [address] RDW SD 41.7 fl Normal 35.1-43.9 [facility] Comment on above: Performed By: #### M 100.2400, M100.2000 #### [facility] [address] [place], [address] WBC (Bld) [#/Vol] 16.8 10*3/uL High 4.4-11.0 [facility] Comment on above: Performed By: #### M 100.2400, M100.1999 #### [facility] [address] [place], [address] Legionella Antigen Urineon 0 07-21-2024 LEGU Comments: Only Recom mended for severe cases of pneumonia Only Recommended for severe cases of pneumonia URINE, CLEAN CATCH Legionella Antigen result interpretation: L pneumo Ag Ur Ql Negative Presumptive negative for Legionella pneumophila serogroup 1 antigen in urine, suggesting no recent or current infection. Legionella Ag, Urine Negative (See interpretation below) Normal [facility] Comment on above: Performed By: #### M 100.2400, M100.1999 #### [facility] [address] [place], [address] M100.678on 07-21-2024 M100.678 Pending SARS-CoV-2 (COVID 19) Negative INFLUENZA A Negative INFLUENZA B Negative RSV PCR Negative Normal [facility] Comment on above: Performed By: #### M 100.678 #### [facility] [address] [facility] [place], [address] M8200.1000on 07-21-2024 M8200.1000 Normal Reference Ran ge = Negative MRSA DNA Nose Ql MAHESH+probe GeneXpert Instrument, PCR method MRSA PCR MRSA NEGATIVE Normal [facility] Comment on above: Performed By: #### M 8200.1000 #### [facility] [address] [place], [address] Strep pneumoniae Antig(UR,CS F)on 07-21-2024 STPAG Comments: [...] Test Negative URINE (See interpretation below) Normal [facility] Comment on above: Performed By: #### M 100.2400, M100.2000 #### [facility] [address] [facility] [place], [address] 12 Lead EKGon 07-20-2024 12 Lead EKG [facility] Cardiovascular Services [address] [place] [address] 12 Lead EKG 07/20/24 0951 MR#: [id number] Acct: [id number] Name: KARLI DUKE Rep #: [id number] : 1965 58 From: Isaac Barrera MD Attending Dr: Dr. Colton Gandhi MD Status: ADM IN Ordering Dr: Willard Burr DO Date: 07/20/24 Location: [facility] Sex: M C Admitted: 07/20/24 Test Reason [...] by ROSANNA BARRERA MD ([id number]), LEVAR Colón ([id number]) on 07/22/2024 10:44:05 AM Also confirmed by ROSANNA BARRERA MD ([id number]), LEVAR Colón ([id number]) on 07/22/2024 10:44:18 AM Referred By: DAWSON Confirmed By: ROSANNA BARRERA MD 07/22/24 1044 Date Isaac Barrera MD CC: Dr. Willard Burr DO; Dr. Alberto vAelar MD; Dr. Colton Gandhi MD Signed Normal [facility] BNP,B-Type NATRIURETIC PEPTI Elizabeht 07-20-2024 Natriuretic peptide B (Bld) [Mass/Vol] 12.6 pg/mL Normal 0-100 [facility] Comment on above: Performed By: #### M 100.2400, M100.2000 #### [facility] [address] [place], [address] Basic Metabolic Profile (BMP )on 07-20-2024 BUN/CRE 11.8 RATIO Normal 10-20 [facility] Comment on above: Order Comment: 'TROP ' Serial specimen #1, #2 or #3: 1 Performed By: #### L 500.3400, L500.2500, L501.4020 #### [facility] [address] [place], [address] CA,Total 9.7 mg/dL Normal 8.5-10.1 [facility] Comment on above: Order Comment: 'TROP ' Serial specimen #1, #2 or #3: 1 Performed By: #### L 500.3400, L500.2500, L501.4020 #### [facility] [address] [place], [address] Chloride [Moles/Vol] 100 mmol/L Normal 98-107 [facility] Comment on above: Order Comment: 'TROP ' Serial specimen #1, #2 or #3: 1 Performed By: #### L 500.3400, L500.2500, L501.4020 #### [facility] [address] [place], [address] CO2 [Moles/Vol] 30.0 mmol/L Normal 21.0-32.0 [facility] Comment on above: Order Comment: 'TROP ' Serial specimen #1, #2 or #3: 1 Performed By: #### L 500.3400, L500.2500, L501.4020 #### [facility] [address] [place], [address] Creatinine [Mass/Vol] 0.85 mg/dL Normal 0.70-1.30 [facility] Comment on above: Order Comment: 'TROP ' Serial specimen #1, #2 or #3: 1 Result Comment: The validity of the calculated GFR GFRAA in patients over 70 years has not been determined. Clinical correlation is essential. Performed By: #### L 500.3400, L500.2500, L501.4020 #### [facility] [address] [place], [address] ECRCL 85.56 ml/min Normal [facility] Comment on above: Order Comment: 'TROP ' Serial specimen #1, #2 or #3: 1 Performed By: #### L 500.3400, L500.2500, L501.4020 #### [facility] [address] [place], [address] EST GFR - AA 120 mL/min Normal >60 [facility] Comment on above: Order Comment: 'TROP ' Serial specimen #1, #2 or #3: 1 Result Comment: Afri can Kazakh GFR Calc Performed By: #### L 500.3400, L500.2500, L501.4020 #### [facility] [address] [place], [address] GAP 6 Normal 5-15 [facility] Comment on above: Order Comment: 'TROP ' Serial specimen #1, #2 or #3: 1 Performed By: #### L 500.3400, L500.2500, L501.4020 #### [facility] [address] [place], [address] GFR/1.73 sq M.predicted among non-blacks MDRD (S/P/Bld) [Vol rate/Area] 99 mL/min/{1.73_m2} Normal >60 [facility] Comment on above: Order Comment: 'TROP ' Serial specimen #1, #2 or #3: 1 Result Comment: Non- GFR Calc Performed By: #### L 500.3400, L500.2500, L501.4020 #### [facility] [address] [place], [address] Glucose [Mass/Vol] 148 mg/dL High 74-106 [facility] Comment on above: Order Comment: 'TROP ' Serial specimen #1, #2 or #3: 1 Result Comment: Fast ing Glucose result greater than or equal to 126 mg/dL suggests DIABETES MELLITUS per A.D.A. criteria. Performed By: #### L 500.3400, L500.2500, L501.4020 #### [facility] [address] [place], [address] Potassium [Moles/Vol] 4.8 mmol/L Normal 3.5-5.1 [facility] Comment on above: Order Comment: 'TROP ' Serial specimen #1, #2 or #3: 1 Result Comment: Mode rate Hemolysis, Result may be falsely increased. Performed By: #### L 500.3400, L500.2500, L501.4020 #### [facility] [address] [place], [address] Sodium [Moles/Vol] 136 mmol/L Normal 136-145 [facility] Comment on above: Order Comment: 'TROP ' Serial specimen #1, #2 or #3: 1 Performed By: #### L 500.3400, L500.2500, L501.4020 #### [facility] [address] [place], [address] Urea nitrogen [Mass/Vol] 10 mg/dL Normal 7-18 [facility] Comment on above: Order Comment: 'TROP ' Serial specimen #1, #2 or #3: 1 Performed By: #### L 500.3400, L500.2500, L501.4020 #### [facility] [address] [place], [address] Bedside Glucoseon 01-18-2025 FINGERSTICK GLU 137 mg/dL High 74-106 [facility] Comment on above: Result Comment: RELL EL OF PATIENT CARE PER NURSING PROTOCOL Performed By: #### M 100.240, #### [facility] [address] [place], [address] CBC W/Diff, Automatedon 07-03 Absolute Lymph 0.76 X10 3/uL Low 0.83-4.51 [facility] Comment on above: Performed By: #### M 100.240, #### [facility] [address] [place], [address] Absolute Neut 17.7 X10 3/uL High 2.0-7.7 [facility] Comment on above: Performed By: #### M 100.2399, #### [facility] [address] [place], [address] Basophils/100 WBC (Bld) 0.4 % Normal 0-1 [facility] Comment on above: Performed By: #### M 100.240, #### [facility] [address] [place], [address] Eosinophils/100 WBC (Bld) 0.1 % Normal 0-5 [facility] Comment on above: Performed By: #### M 100.240, #### [facility] [address] [place], [address] Erythrocyte distribution width (RBC) [Ratio] 12.1 % Normal 11.6-14.6 [facility] Comment on above: Performed By: #### M 100.240, #### [facility] [address] [place], [address] Hematocrit (Bld) [Volume fraction] 46.5 % Normal 40-54 [facility] Comment on above: Performed By: #### M 100.240, #### [facility] [address] [place], [address] Hemoglobin (Bld) [Mass/Vol] 15.8 g/dL Normal 13.0-16.5 [facility] Comment on above: Performed By: #### M 100.2400, #### [facility] [address] [place], [address] IG% 0.400 Normal 0.0-0.9 [facility] Comment on above: Result Comment: IG% - Immature Granulocytes (promyelocytes, myelocytes and metamyelocytes) > 1% indicates that a LEFT SHIFT is Present. Performed By: #### M 100.240, #### [facility] [address] [place], [address] Lymphocytes/100 WBC (Bld) 3.8 % Low 19-41 [facility] Comment on above: Performed By: #### M 100.240, #### [facility] [address] [place], [address] MCH (RBC) [Entitic mass] 31.3 pg Normal 27.0-32.0 [facility] Comment on above: Performed By: #### M 100.240, #### [facility] [address] [place], [address] MCHC (RBC) [Mass/Vol] 34.0 g/dL Normal 32-36 [facility] Comment on above: Performed By: #### M 100.2400, #### [facility] [address] [place], [address] MCV (RBC) [Entitic vol] 92.3 fL Normal 80-94 [facility] Comment on above: Performed By: #### M 100.2400, #### [facility] [address] [place], [address] Monocytes/100 WBC (Bld) 6.9 % Normal 0-10 [facility] Comment on above: Performed By: #### M 100.240, #### [facility] [address] [place], [address] Neutrophils/100 WBC (Bld) 88.4 % High 47-70 [facility] Comment on above: Performed By: #### M 100.240, #### [facility] [address] [place], [address] Nucleated RBC (Bld) [#/Vol] 0 10*3/uL Normal 0-5 [facility] Comment on above: Performed By: #### M 100.240, #### [facility] [address] [place], [address] Platelet mean volume (Bld) [Entitic vol] 8.9 fL Normal 6.2-12.0 [facility] Comment on above: Performed By: #### M 100.2399, #### [facility] [address] [place], [address] Platelets (Bld) [#/Vol] 319 10*3/uL Normal 150-450 [facility] Comment on above: Performed By: #### M 100.240, #### [facility] [address] [place], [address] RBC (Bld) [#/Vol] 5.04 10*6/uL Normal 4.6-6.2 [facility] Comment on above: Performed By: #### M 100.240, #### [facility] [address] [place], [address] RDW SD 41.3 fl Normal 35.1-43.9 [facility] Comment on above: Performed By: #### M 100.2400, M100.1999 #### [facility] [address], [address] WBC (Bld) [#/Vol] 20.1 10*3/uL High 4.4-11.0 [facility] Comment on above: Performed By: #### M 100.2400, M100.1999 #### [facility] [address] [place] [place], [address] CTA Chest W/WO Contraston CTA Chest W/WO Contrast [facility] Imaging Services [address] [facility] [place], [place] [address] CTA Chest W/WO Contrast MR#: [id number] Acct: [id number] Name: KARLI DUKE Rep #: [id number] : 1965 M 58 From: Chris Long MD PCP: Dr. Alberto Avelar MD Status: [facility] Study: CTA Chest W/WO Contrast Date of Exam: 07/20/24 Exam# [id number] Ordering Dr: Willard Burr DO [id number] STUDY: CTA CHEST REASON FOR EXAM: Male, [...] Willard Burr DO; Dr. Alberto Avelar MD Metal Buildings Assembler: Signed Normal [facility] Chest 1 View (Portable)on Chest 1 View (Portable) [facility] Imaging Services [address] [place] [id number] Chest 1 View (Portable) MR#: [id number] Acct: [id number] Name: KARLI DUKE Rep #: [id number] : 1965 M 58 From: Chris Long MD PCP: Dr. Alberto Avelar MD Status: [facility] Study: Chest 1 View (Portable) Date of Exam: 07/20/24 Exam# [id number] Ordering Dr: Willard Burr DO [id number] STUDY: X-RAY CHEST REASON FOR EXAM: Male, [...] 10:51 EST Reading Location ID and State: [address] [place] [address] , Service support , CC: Dr. Willard Burr DO; Dr. Alberto Avelar MD Metal Buildings Assembler: Signed Normal [facility] Emergency Department Summary on 07-20-2024 Emergency Department Summary [facility] Medical Records Department [address] [place] [address] Emergency Department Summary 07/20/24 MR#: [id number] Acct: [id number] Name: KARLI DUKE Rep #: [id number] : 1965 58 From: Willard Burr DO PCP: Dr. Alberto Avelar MD Status:ADM IN [facility] History of Present Illness Chief Complaint: [...] BiPAP before and does not like it. [facility] Medical History Anxiety COPD (chronic obstructive [...] 08/25/19 07/20/24 10:00 History 1 ea mv-min-vit D-lqfo-qwubxt nereida-herb 1 ea PO DAILY supplement 08/25/19 [...] Oxygen Natty (more content not included)... Normal [facility] H AND P Exam - Hospitaliston 07-20-2024 H&P Exam - Hospitalist [facility] Medical Records Department [address] [place] [address] H P Exam - Hospitalist 07/20/24 1329 MR#: [id number] Acct: [id number] Name: KARLI DUKE Rep #: [id number] : 1965 58 From: Colton Gandhi MD [...] PCP about 4 weeks ago. He follows cnp Dr. Millie sánchez, [facility]. He states for [...] shows mild tachypnea and sinus tachycardia. [facility] Medical History Anxiety COPD (chronic obstructive pulmonary [...] PO DAILY supplement 08/25/19 Unknown History mv-min-vit N-syqi-amdmet nereida-herb 1 ea PO DAILY supplement 08/25/19 [...] H 162 (more content not included)... Normal [facility] L501.4020on 07-20-2024 TROPONIN-I HS 10 pg/mL Normal 3.0-78.0 [facility] Comment on above: Order Comment: 'TROP ' Serial specimen #1, #2 or #3: 1 Result Comment: Valarie lugo Note: New Test Units and Gender Specific Reference Ranges. For more information see Policy Stat Procedure [place] High Sensitivity Troponin (TNIH) and attachments. Performed By: #### L 500.3400, L500.2500, L501.4020 #### [facility] [address] [place], [address] Lactic Acidon 07-20-2024 Lactate [Moles/Vol] 0.9 mmol/L Normal 0.4-1.9 [facility] Comment on above: Order Comment: Y Performed By: #### M 100.2400, M100.2000 #### [facility] [address] [place], [address] Liver Profileon 07-20-2024 Albumin [Mass/Vol] 3.5 g/dL Normal 3.2-5.0 [facility] Comment on above: Order Comment: 'TROP ' Serial specimen #1, #2 or #3: 1 Performed By: #### L 500.3400, L500.2500, L501.4020 #### [facility] [address] [place], [address] ALK P 92 U/L Normal 45-117 [facility] Comment on above: Order Comment: 'TROP ' Serial specimen #1, #2 or #3: 1 Performed By: #### L 500.3400, L500.2500, L501.4020 #### [facility] [address] [place], [address] ALT [Catalytic activity/Vol] 62 U/L High 16-61 [facility] Comment on above: Order Comment: 'TROP ' Serial specimen #1, #2 or #3: 1 Performed By: #### L 500.3400, L500.2500, L501.4020 #### [facility] [address] [place], [address] AST [Catalytic activity/Vol] 61 U/L High 15-37 [facility] Comment on above: Order Comment: 'TROP ' Serial specimen #1, #2 or #3: 1 Result Comment: Mode rate Hemolysis, Result may be falsely increased. Performed By: #### L 500.3400, L500.2500, L501.4020 #### [facility] [address] [place], [address] Bilirubin [Mass/Vol] 0.80 mg/dL Normal 0.20-1.00 [facility] Comment on above: Order Comment: 'TROP ' Serial specimen #1, #2 or #3: 1 Result Comment: For patients on eltrombopag therapy, use of Dimension [place] TBIL is not recommended. Performed By: #### L 500.3400, L500.2500, L501.4020 #### [facility] [address] [place], [address] Bilirubin.direct [Mass/Vol] 0.17 mg/dL Normal 0.00-0.30 [facility] Comment on above: Order Comment: 'TROP ' Serial specimen #1, #2 or #3: 1 Performed By: #### L 500.3400, L500.2500, L501.4020 #### [facility] [address] [place], [address] Globulin (S) [Mass/Vol] 4.6 g/dL High 2.2-4.2 [facility] Comment on above: Order Comment: 'TROP ' Serial specimen #1, #2 or #3: 1 Performed By: #### L 500.3400, L500.2500, L501.4020 #### [facility] [address] [place], [place], [address] T PROT 8.1 g/dL Normal 6.4-8.2 [facility] Comment on above: Order Comment: 'TROP ' Serial specimen #1, #2 or #3: 1 Performed By: #### L 500.3400, L500.2500, L501.4020 #### [facility] [address] [place], [place], [address] [facility] -- KARLI DUKE ([id number]) 1965 M Date Time Provider Department 05/27/24 [...] Date Reviewed: 05/21/2024 Reviewed by: Nathalie Mojica APRN.MANGLE PRESS CATCHER - Fully Assessed Reason for Visit: Results [95] Primary Visit Diagnosis:Lung nodules [R91.8] Order(s):CT CHEST WO KAIA [4070311] Order #: [id number] FUTURE Prescriptions as of 06/25/2024 - doxycycline [...] tablet by mouth daily at bedtime. - ibrxyawpwgj-onrbhmlmf-axij nter (TRELEGY ELLIPTA) 200-62.5-25 mcg inhalation powder [...] Encounter Status:Closed by NATHALIE MOJICA on 05/27/24 [facility] CNOVon 05-20-2024 CNOV Office Visit (PULMWS ) -- KARLI DUKE ([id number]) 1965 M Date Time Provider Department 05/20/24 11:30 AM NATHALIE MOJICA PULMWS During your visit today, we recorded the following information about you: Nathalie Mojica APRN.MANGLE PRESS CATCHER 05/21/2024 8:26 AM Signed [facility] INCIDENTAL LUNG NODULE PROGRAM (Follow Up) Impression [...] classification (HCC) Continue close follow up with cnp Dr. Silva Sánchez. Follow Up Follow Up Diagnosis: Lung Nodule Recommendation: CT Scan Follow up Date: 10/31/2024 Follow-Up Scheduled: No Pulmonary Follow-Up Type: Lung Nodule Surveillance Enrolled in Lung Nodule program: Yes Lung Nodule Program Location: [facility] Please enter a follow up date: 10/2024 [...] 73.9 kg (163 lb)] Modified Medical Research [place] Dyspnea Scale (MMRC) I am too breathless [...] DATE OF EXAM: Apr 24 2023 12:10PM [facility] 0541 - CT CHEST WO IVCON [...] are norm (more content not included)... Normal [facility] CT CHEST WO IVCONon 05-20-20 CT CHEST WO IVCON * * *Final Report* * * DATE OF EXAM: May 20 2024 11:37AM [facility] 05[facility] - CT CHEST WO IVCON [...] few additional stable scattered pulmonary nodules with traveling representative measurements as follows. Stable 4 mm [...] right upper lobe groundglass opacity appear stable. Metal Buildings Assembler[facility] Transcribe Date/Time: May 22 2024 12:58P Dictated by : BIBI BOWER MD This examination was interpreted and the report reviewed and electronically signed by: BIBI BOWER MD on May 22 2024 1:04PM EST [id number] Normal [facility] CNOVon 02-29-2024 CNOV Office Visit (PULMWS ) -- SRIKANTHKARLI L ([id number]) 1965 M Date Time Provider Department 02/29/24 1:45 PM MILLIE SÁNCHEZ During your visit today, we recorded the following information about you: Pulse Respiration Blood pressure Weight 84/minute 22/minute 146/96 69.4 kg Yulisa Keith LPN 02/29/2024 1:18 PM Signed Intake information documented in the prior visit with ERICH Bassett today. Millie Sánchez MD 02/29/2024 5:09 PM Signed . Respiratory [place] Note Patient name: Karli Duke PCP: Alberto [...] DATE OF EXAM: Apr 24 2023 12:10PM [facility] 0541 - CT CHEST WO IVCON [...] date: COPD (chronic obstructive pulmonary disease) ([facility]) No date: Other and unspecified hyperlipidemia No date: SAH (subarachnoid hemorrhage) ([facility]) No date: Sleep apnea No date: Tobacco abuse Comment: Quit 2016. ALLERGIES Allergen Reactions Codeine Unknown Environmental [Othe* Other: See Comments Molds and grasses as verified by skin testing Vicodin [Hydrocodon* Mental Status Change sfxzxvcqtua-ugkgmuhct-wapj nter (TRELEGY ELLIPTA) 200-62.5-25 mcg inhalation powder [...] Comment: 1 (more content not included)... Normal [facility] OXIMETRY WITH AMBULATIONon 0 02-29-2024 Paul [...] February 29, 2024 TIME: 1:34 PM Comment: [facility] No Panel Informationon 08-29 [facility] SPIROMETRY BASELINE ONLYon 0 08-29-2023 DLCO (ml/min/mmHg) 9.66 ml/min/mmHg [facility] DLCO/VA (ml/min/mmHg/L) 2.28 ml/min/mmHg/L [facility] ERV BOX (L) 0.90 L [facility] GHW75-37% PRE (L/S) 0.16 L/S [facility] FEV1 PRE (L) 0.57 L [facility] FEV1/FVC PRE (%) 26 % [facility] FRC Box (L) 5.73 L [facility] FVC PRE (L) 2.21 L [facility] IC BOX (L) 1.42 L [facility] PEF PRE (L/S) 2.40 L/S [facility] RV Box (L) 4.86 L [facility] RV/TLC Box (%) 68 % [facility] TLC Box (L) 7.16 L [facility] VA (L) 4.24 L [facility] VC (L) BOX 2.32 L [facility] CNPNon 05-01-2023 CNPN Telephone ([facility]) -- KARLI DUKE ([id number]) 1965 M Date Time Provider Department 05/01/23 [...] Visit Diagnosis:Lung nodules [R91.8] [id number] Order #: [id number] FUTURE Prescriptions as of 05/01/2023 - busPIRone [...] 1 mg tablet Take by mouth. - gyoslueutuy-ypgoybdpg-qdky nter (TRELEGY ELLIPTA) 200-62.5-25 mcg inhalation powder [...] Status:Closed by NATHALIE MOJICA on 05/01/[address] [facility] [address] CHEST WO IVCONon 04-26-20 Radiology Result ACTIONABLE Abnormal [facility] CT CHEST WO IVCONon 03-16-20 [facility] Vital Signs Date Time Vital Sign Value Performing Clinician Facility 02-21-2025 20:27-0400 Body temperature 98.5 [degF] Dr. Alberto Avelar MD Work Phone: [phone] [place] [address] 02-21-2025 20:27-0400 Diastolic blood pressure 92 mm[Hg] Dr. Alberto Avelar MD Work Phone: [phone] [place] [address] 02-21-2025 20:27-0400 Heart rate 89 /min Dr. Alberto Avelar MD Work Phone: 5(606)492-734586 [place] [address] 02-21-2025 20:27-0400 Respiratory rate 25 /min Dr. Alberto Avelar MD Work Phone: [phone] [place] [address] 02-21-2025 20:27-0400 SaO2% (BldA) [Mass fraction] 97 % Dr. Alberto Avelar MD Work Phone: 9(420)818-705286 [place] [address] 02-21-2025 20:27-0400 Systolic blood pressure 138 mm[Hg] Dr. Alberto Avelar MD Work Phone: 7(411)063-350986 [place] [address] 02-21-2025 19:30-0400 Inhaled oxygen concentration 30 % Dr. Alberto Avelar MD Work Phone: 8(223)221-373886 [place] [address] 02-21-2025 18:00-0400 Inhaled oxygen flow rate 3 L/min Dr. Alberto Avelar MD Work Phone: 8(512)755-752386 [place] [address] 02-21-2025 16:27-0400 Body height 160.[address] Alberto Avelar MD Work Phone: 4(020)263-783586 [place] [address] 02-21-2025 16:27-0400 Body mass index (BMI) [Ratio] 24.3 kg/m2 Dr. Alberto Avelar MD Work Phone: [phone] [place] [address] 02-21-2025 16:27-0400 Body weight 62.[address] Alberto Avelar MD Work Phone: 3(461)[phone] [place] [address] 08-22-2025 16:11-0400 Body temperature 98.49 [degF] Raven Swank PODIATRIST ASSISTANT.MANGLE PRESS CATCHER Work Phone: [facility] 02-21-2025 16:11-0400 Diastolic blood pressure 95 mm[Hg] Raven Swank PODIATRIST ASSISTANT.MANGLE PRESS CATCHER Work Phone: [facility] 02-21-2025 16:11-0400 Heart rate 102 /min Raven Swank PODIATRIST ASSISTANT.MANGLE PRESS CATCHER Work Phone: [facility] 02-21-2025 16:11-0400 Respiratory rate 28 /min Raven Swank PODIATRIST ASSISTANT.MANGLE PRESS CATCHER Work Phone: [facility] 02-21-2025 16:11-0400 SaO2% (BldA) [Mass fraction] 91 % Raven Swank PODIATRIST ASSISTANT.MANGLE PRESS CATCHER Work Phone: [facility] Comment on above: 2 LMP [place] 02-21-2025 16:11-0400 Systolic blood pressure 196 mm[Hg] Raven Swank PODIATRIST ASSISTANT.MANGLE PRESS CATCHER Work Phone: [facility] 11-18-2024 11:07-0400 Heart rate 61 /min Nathalie Morris Run PODIATRIST ASSISTANT.MANGLE PRESS CATCHER Work Phone: [facility] 11-18-2024 11:07-0400 Respiratory rate 19 /min Nathalie Morris Run PODIATRIST ASSISTANT.MANGLE PRESS CATCHER Work Phone: [facility] 11-18-2024 11:07-0400 SaO2% (BldA) [Mass fraction] 97 % Nathalie Morris Run PODIATRIST ASSISTANT.MANGLE PRESS CATCHER Work Phone: [facility] 08-01-2024 10:04-0500 Body mass index (BMI) [Ratio] 26.67 kg/m2 Alberto Avelar MD Work Phone: [facility] 08-01-2024 10:04-0500 Body weight 68.3 kg Alberto Avelar MD Work Phone: [facility] 08-01-2024 10:04-0500 Diastolic blood pressure 82 mm[Hg] Alberto Avelar MD Work Phone: [facility] 08-01-2024 10:04-0500 Heart rate 96 /min Alberto Avelar MD Work Phone: [facility] 08-01-2024 10:04-0500 Respiratory rate 20 /min Alberto Avelar MD Work Phone: [facility] 08-01-2024 10:04-0500 SaO2% (BldA) [Mass fraction] 94 % Alberto Avelar MD Work Phone: [facility] 08-01-2024 10:04-0500 Systolic blood pressure 150 mm[Hg] Alberto Avelar MD Work Phone: [facility] 07-30-2024 12:44-0500 Diastolic blood pressure 72 mm[Hg] Mily Click PODIATRIST ASSISTANT.MANGLE PRESS CATCHER Work Phone: [facility] 07-30-2024 12:44-0500 Heart rate 85 /min Mily Click PODIATRIST ASSISTANT.MANGLE PRESS CATCHER Work Phone: [facility] 07-30-2024 12:44-0500 Respiratory rate 16 /min Mily Click PODIATRIST ASSISTANT.MANGLE PRESS CATCHER Work Phone: [facility] 07-30-2024 12:44-0500 SaO2% (BldA) [Mass fraction] 95 % Mily Click PODIATRIST ASSISTANT.MANGLE PRESS CATCHER Work Phone: [facility] 07-30-2024 12:44-0500 Systolic blood pressure 122 mm[Hg] Mily Click PODIATRIST ASSISTANT.MANGLE PRESS CATCHER Work Phone: [facility] 02-29-2024 13:32-0400 Body mass index (BMI) [Ratio] 27.1 kg/m2 Pulm Wstr Work Phone: [facility] 02-29-2024 13:32-0400 Body weight 69.4 kg Pulm Wstr Work Phone: [facility] 02-29-2024 13:32-0400 Heart rate 88 /min Pulm Wstr Work Phone: [facility] 02-29-2024 13:32-0400 Respiratory rate 13 /min Pulm Wstr Work Phone: [facility] 02-29-2024 13:32-0400 SaO2% (BldA) [Mass fraction] 93 % Pulm Wstr Work Phone: [facility] 02-29-2024 13:30-0400 Body mass index (BMI) [Ratio] 27.1 kg/m2 Millie Sánchez MD Work Phone: [facility] 02-29-2024 13:30-0400 Body weight 69.4 kg Millie Sánchez MD Work Phone: [facility] 02-29-2024 13:30-0400 Diastolic blood pressure 96 mm[Hg] Millie Sánchez MD Work Phone: [facility] 02-29-2024 13:30-0400 Heart rate 84 /min Millie Sánchez MD Work Phone: [facility] 02-29-2024 13:30-0400 Respiratory rate 22 /min Millie Sánchez MD Work Phone: [facility] 02-29-2024 13:30-0400 SaO2% (BldA) [Mass fraction] 97 % Millie Sánchez MD Work Phone: [facility] 02-29-2024 13:30-0400 Systolic blood pressure 146 mm[Hg] Millie Sánchez MD Work Phone: [facility] 08-29-2023 13:14-0500 Body height 160 cm Helen Newman PA-C Work Phone: [facility] 08-29-2023 13:14-0500 Body temperature 99.1 [degF] Helen Newman PA-C Work Phone: [facility] 08-29-2023 13:14-0500 Body weight 69.85 kg Helen Newman PA-C Work Phone: [facility] 08-29-2023 13:14-0500 Diastolic blood pressure 90 mm[Hg] Helen Newman PA-C Work Phone: [facility] 08-29-2023 13:14-0500 Heart rate 80 /min Helen Russ PA-C Work Phone: [facility] 08-29-2023 13:14-0500 Respiratory rate 14 /min Helen Russ PA-C Work Phone: [facility] 08-29-2023 13:14-0500 SaO2% (BldA) [Mass fraction] 95 % Helen Russ PA-C Work Phone: [facility] 08-29-2023 13:14-0500 Systolic blood pressure 138 mm[Hg] Helen Russ PA-C Work Phone: [facility] 08-29-2023 13:12-0500 Body height 160 cm Pulm Wstr Work Phone: [facility] 08-29-2023 13:12-0500 Body weight 69.85 kg Pulm Wstr Work Phone: [facility] 08-29-2023 13:12-0500 Heart rate 80 /min Pulm Wstr Work Phone: [facility] 08-29-2023 13:12-0500 Respiratory rate 14 /min Pulm Wstr Work Phone: [facility] 08-29-2023 13:12-0500 SaO2% (BldA) [Mass fraction] 95 % Pulm Wstr Work Phone: [facility] 06-14-2023 13:21-0500 Body weight 73.03 kg Helen Russ PA-C Work Phone: [facility] 06-14-2023 13:21-0500 Diastolic blood pressure 84 mm[Hg] Helen Russ PA-C Work Phone: [facility] 06-14-2023 13:21-0500 Heart rate 66 /min Helen Russ PA-C Work Phone: [facility] 06-14-2023 13:21-0500 Respiratory rate 15 /min Helen Russ PA-C Work Phone: [facility] 06-14-2023 13:21-0500 SaO2% (BldA) [Mass fraction] 99 % Helen Newman PA-C Work Phone: [facility] 06-14-2023 13:21-0500 Systolic blood pressure 132 mm[Hg] Helen Newman PA-C Work Phone: [facility] 03-14-2023 14:31-0400 Body weight 73.94 kg Millie Sánchez MD Work Phone: [facility] 03-14-2023 14:31-0400 Diastolic blood pressure 90 mm[Hg] Millie Sánchez MD Work Phone: [facility] 03-14-2023 14:31-0400 Heart rate 93 /min Millie Sánchez MD Work Phone: [facility] 03-14-2023 14:31-0400 SaO2% (BldA) [Mass fraction] 95 % Millie Sánchez MD Work Phone: [facility] 03-14-2023 14:31-0400 Systolic blood pressure 130 mm[Hg] Millie Sánchez MD Work Phone: [facility] 12-01-2022 13:46-0400 Body weight 75.16 kg Alberto Avelar MD Work Phone: [facility] 12-01-2022 13:46-0400 Diastolic blood pressure 80 mm[Hg] Alberto Avelar MD Work Phone: [facility] 12-01-2022 13:46-0400 Heart rate 84 /min Alberto Avelar MD Work Phone: [facility] 12-01-2022 13:46-0400 Respiratory rate 20 /min Alberto Avelar MD Work Phone: [facility] 12-01-2022 13:46-0400 SaO2% (BldA) [Mass fraction] 95 % Alberto Avelar MD Work Phone: [facility] 12-01-2022 13:46-0400 Systolic blood pressure 130 mm[Hg] Alberto Avelar MD Work Phone: [facility] 11-14-2022 13:00-0400 Body weight 74.84 kg Helen Newman PA-C Work Phone: [facility] 05-21-2022 14:00-0500 Body temperature 97.81 [degF] Nigel Nitin PODIATRIST ASSISTANT.MANGLE PRESS CATCHER Work Phone: [facility] 05-21-2022 14:00-0500 Body weight 73.94 kg Nigel Nitin PODIATRIST ASSISTANT.MANGLE PRESS CATCHER Work Phone: [facility] 05-21-2022 14:00-0500 Diastolic blood pressure 80 mm[Hg] Nigel Nitin PODIATRIST ASSISTANT.MANGLE PRESS CATCHER Work Phone: [facility] 05-21-2022 14:00-0500 Heart rate 82 /min Nigel Nitin PODIATRIST ASSISTANT.MANGLE PRESS CATCHER Work Phone: [facility] 05-21-2022 14:00-0500 Respiratory rate 18 /min Nigel Nitin PODIATRIST ASSISTANT.MANGLE PRESS CATCHER Work Phone: [facility] 05-21-2022 14:00-0500 SaO2% (BldA) [Mass fraction] 95 % Nigel Nitin PODIATRIST ASSISTANT.MANGLE PRESS CATCHER Work Phone: [facility] 05-21-2022 14:00-0500 Systolic blood pressure 122 mm[Hg] Nigel Nitin PODIATRIST ASSISTANT.MANGLE PRESS CATCHER Work Phone: [facility] 03-04-2022 11:23-0400 Body height 160 cm Millie Sánchez MD Work Phone: [facility] 03-04-2022 11:23-0400 Body weight 73.94 kg Millie Sánchez MD Work Phone: [facility] 03-04-2022 11:23-0400 Diastolic blood pressure 84 mm[Hg] Millie Sánchez MD Work Phone: [facility] 03-04-2022 11:23-0400 Heart rate 82 /min Millie Sánchez MD Work Phone: [facility] 03-04-2022 11:23-0400 Respiratory rate 14 /min Millie Sánchez MD Work Phone: [facility] 03-04-2022 11:23-0400 SaO2% (BldA) [Mass fraction] 96 % Millie Sánchez MD Work Phone: [facility] 03-04-2022 11:23-0400 Systolic blood pressure 134 mm[Hg] Millie Sánchez MD Work Phone: [facility] 03-04-2022 11:040 Body height 160 cm Respiratory Wstr Work Phone: [facility] 03-04-2022 11:040 Body weight 73.94 kg Respiratory Wstr Work Phone: [facility] Encounters Encounter Date Encounter Type Care Provider Facility Start: 02-21-2025 Evaluation and management of inpatient Dr. Lynn Duke MD -Progressive Care Unit Work Phone: Start: 02-21-2025 End: 02-21-2025 Patient encounter procedure Raven Tan APRN.MANGLE PRESS CATCHER Work Phone: [facility] Comment on above: Hypoxemia; Acute respiratory distress Start: 02-18-2025 End: 02-19-2025 ambulatory Gurmeet Tao APRN.MANGLE PRESS CATCHER Work Phone: [facility] Comment on above: Anxiety Start: 01-28-2025 End: 01-28-2025 ambulatory Alberto Avelar MD Work Phone: [facility] [place] Comment on above: Water pill Start: 01-21-2025 End: 01-21-2025 ambulatory Mily Tapia APRN.MANGLE PRESS CATCHER Work Phone: Pulmonary Medicine Comment on above: Trilogy Ellipta 200 mcg Start: 01-21-2025 End: 01-21-2025 Refill Millie Sánchez MD Work Phone: Pulmonary Medicine Comment on above: Refill Request Start: 01-17-2025 End: 01-21-2025 Refill Helen ALEJOC Work Phone: Pulmonary Medicine Comment on above: Refill Request Start: 01-15-2025 End: 01-15-2025 Refill Alberto Avelar MD Work Phone: Family [facility] [place] Comment on above: Refill Request Start: 01-07-2025 End: 01-07-2025 ambulatory Mily Tapia PODIATRIST ASSISTANT.MANGLE PRESS CATCHER Work Phone: Pulmonary Medicine Comment on above: and Stepson may be sick Start: 11-28-2024 End: 11-28-2024 Follow-up encounter Nathalie Mojica APRN.CNP Work Phone: Pulmonary Medicine Start: 11-27-2024 End: 11-27-2024 Refill Karina Gustafson PODIATRIST ASSISTANT.MANGLE PRESS CATCHER Work Phone: Pulmonology [facility] Comment on above: Refill Request Start: 11-21-2024 End: 11-29-2024 Refill Helen ALEJOC Work Phone: Pulmonary Medicine Comment on above: Refill Request Start: 11-18-2024 End: 11-18-2024 Patient encounter procedure Nathalie Mojica APRN.MANGLE PRESS CATCHER Work Phone: Pulmonary Medicine Comment on above: Lung nodules (Primar y Dx); Former cigarette smoker; Stage 4 very severe COPD by GOLD classification (FORMERLY [facility]) Start: 11-18-2024 End: 11-18-2024 ambulatory NATHALIE MOJICA Facility:[facility] Start: 11-18-2024 End: 11-18-2024 Subsequent hospital visit by physician [facility] (I-Stat) Work Phone: Cat Scan Comment on above: Lung nodules [R91.8] Start: 11-17-2024 End: 11-17-2024 ambulatory Liv Malave RN NURSE BOX STRAPPER Comment on above: Difficulty Breathing Start: 11-01-2024 End: 11-01-2024 ambulatory Gurmeet Tao PODIATRIST ASSISTANT.MANGLE PRESS CATCHER Work Phone: [facility] Comment on above: Sleeping difficulty (Primary Dx); Anxiousness; Stage 4 very severe COPD by GOLD classification (HCC) Start: 11-01-2024 End: 11-01-2024 Telemedicine consultation with patient Gurmeet Aislinn ARREDONDOMANGLE PRESS CATCHER Work Phone: [facility] [place] Start: 10-28-2024 End: 10-28-2024 Telephone encounter Dian Villarreal [employer] [facility] Comment on above: Appointment (Pulmona ry Rehab Eval) Start: 10-21-2024 End: 10-21-2024 Telephone encounter Dian Villarreal [employer] [facility] Comment on above: Appointment (Pulmona ry Rehab Eval) Start: 10-18-2024 End: 10-18-2024 Telemedicine consultation with patient Mily Tapia APRN.MANGLE PRESS CATCHER Work Phone: Pulmonary Medicine Start: 10-18-2024 End: 10-18-2024 ambulatory Mily Tapia APRN.MANGLE PRESS CATCHER Work Phone: Pulmonary Medicine Comment on above: 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 Start: 08-26-2024 End: 08-29-2024 ambulatory Mily Tapia APRN.MANGLE PRESS CATCHER Work Phone: Pulmonary Medicine Comment on above: Reschedule Start: 08-05-2024 End: 08-06-2024 ambulatory Alberto Avelar MD Work Phone: [facility] Comment on above: Water pills Start: 08-01-2024 End: 08-01-2024 E-mail encounter from caregiver Gurmeet Tao DIOGO.MANGLE PRESS CATCHER Work Phone: Family [facility] [place] Start: 08-01-2024 End: 08-01-2024 ambulatory Gurmeet Tao APRN.MANGLE PRESS CATCHER Work Phone: [facility] [place] Comment on above: Labs Start: 08-01-2024 End: 08-01-2024 Patient encounter procedure Alberto Avelar MD Work Phone: [facility] Comment on above: Hospital discharge f ollow-up (Primary Dx); COPD with exacerbation (HCC); Bacterial pneumonia; JOSEPH (generalized anxiety disorder); Sleeping difficulty Start: 07-30-2024 End: 07-30-2024 ambulatory MILY TAPIA Facility:[facility] Start: 07-30-2024 End: 07-30-2024 Subsequent hospital visit by physician [facility] Russ Work Phone: Radiology Comment on above: Pneumonia of both lo wer lobes due to infectious organism [J18.9] Start: 07-30-2024 End: 07-30-2024 Office outpatient visit 25 minutes Mily Tapia PODIATRIST ASSISTANT.MANGLE PRESS CATCHER Work Phone: Pulmonary Medicine Comment on above: Hospital discharge f ollow-up (Primary Dx); Pneumonia of both lower lobes due to infectious organism; Stage 4 very severe COPD by GOLD classification (HCC); Dependence on continuous supplemental oxygen Start: 07-30-2024 End: 07-30-2024 ambulatory GURMEET TAO Facility:[facility] Start: 07-23-2024 End: 07-23-2024 ambulatory Millie Sánchez MD Work Phone: Pulmonary Medicine Comment on above: It hospitalized over the weekend with pneumonia I was hospitalized w ith pneumonia over the weekend Transition Of Care Start: 07-20-2024 ambulatory [facility] Facility: [facility] Start: 07-20-2024 End: 07-22-2024 Evaluation and management of inpatient [facility] Facility:[facility] Start: 07-01-2024 End: 07-02-2024 ambulatory Millie Sánchez MD Work Phone: Pulmonary Medicine Comment on above: Mobility chair Start: 06-21-2024 End: 06-21-2024 ambulatory Helen Newman PA-C Work Phone: Pulmonary Medicine Comment on above: Antibiotic antibioti cs Start: 06-20-2024 End: 06-21-2024 ambulatory Gurmeet Tao PODIATRIST ASSISTANT.STACY Work Phone: Family [facility] [place] Comment on above: Antibiotic Start: 06-18-2024 End: 06-18-2024 ambulatory [facility] Facility:[facility] Start: 06-18-2024 End: 06-18-2024 [facility] Gurmeet Tao PODIATRIST ASSISTANT.MANGLE PRESS CATCHER Work Phone: [facility] [place] Comment on above: Anxiousness (Primary Dx); Stage 4 very severe COPD by GOLD classification (FORMERLY [facility]); Screening for prostate cancer; Screening for lipid disorders; Screening for diabetes mellitus Start: 06-17-2024 End: 06-17-2024 Refill Shalini Jacobo APRN.MANGLE PRESS CATCHER Work Phone: Family [facility] [place] Comment on above: Refill [...] very severe COPD by GOLD classification (FORMERLY [facility]) Start: 05-20-2024 End: 05-20-2024 ambulatory NATHALIE MOJICA Facility:[facility] Start: 05-20-2024 End: 05-20-2024 Subsequent hospital visit by physician [facility] (I-Stat) Work Phone: Cat Scan Comment on above: Lung nodules [R91.8] Start: 05-15-2024 End: 05-15-2024 ambulatory Millie Sánchez MD Work Phone: Pulmonary Medicine Comment on above: Need three Month pre scriptions Start: 05-15-2024 End: 05-15-2024 Refill Shalini Jacobo PODIATRIST ASSISTANT.MANGLE PRESS CATCHER Work Phone: [facility] [place] Comment on above: Med Change Request Start: 04-10-2024 End: 04-10-2024 Refill Gurmeet Tao PODIATRIST ASSISTANT.MANGLE PRESS CATCHER Work Phone: Family [facility] [place] Comment on above: Refill Request Start: 02-29-2024 End: 02-29-2024 ambulatory Pulm [facility] Work Phone: PULM LAB [facility] Comment on above: Spirometry Start: 02-29-2024 End: 02-29-2024 [facility] Work Phone: [facility] Comment on above: Stage 4 very severe COPD by GOLD classification (FORM[facility]) (Primary Dx); Dependence on continuous supplemental oxygen; Former cigarette smoker Start: 01-28-2024 Get Medical Advice Mechelle Sánchez MD Work Phone: Pulmonary Medicine Comment on above: Refill my prescripti on of trilogy Start: 01-28-2024 Refill Helen Aparicio PA-C Work Phone: Pulmonary Medicine Comment on above: Refill Request Start: 12-02-2023 Refill Karina Mirxander Gustafson PODIATRIST ASSISTANT.MANGLE PRESS CATCHER Work Phone: Pulmonary Medicine Comment on above: [...] Start: 08-29-2023 End: 08-29-2023 ambulatory Pulm Lab [facility] Work Phone: PULM LAB [facility] Comment on above: Spirometry Start: 08-29-2023 End: 08-29-2023 Patient encounter procedure Pulm [facility] Work Phone: [facility] [place] Start: 06-15-2023 ambulatory Helen Aparicio PA-C Work Phone: Pulmonary Medicine Comment on above: More paperwork Start: 06-14-2023 End: 06-14-2023 Office outpatient visit 15 minutes Helen Newman PA-C Work Phone: Pulmonary Medicine Comment on above: Stage 4 very severe COPD by GOLD classification ([facility]) (Primary Dx); Former cigarette smoker; Chronic hypoxemic respiratory failure (HCC); Lung nodules Start: 05-01-2023 Telephone encounter Nathalie mcconnell APRN.MANGLE PRESS CATCHER Work Phone: [facility]monary Comment on above: Results Start: 04-27-2023 ambulatory Helen Aparicio PA-C Work Phone: Pulmonary Medicine Comment on above: Matrix Start: 04-27-2023 Telephone encounter Millie Sánchez MD Work Phone: Pulmonary Medicine Comment on above: Patient Update Start: 04-26-2023 Telephone encounter Helen Newman PA-C Work Phone: General Surgery Comment on above: [employer] - [employer] (Short Term Disability) Start: 04-24-2023 End: 04-24-2023 Subsequent hospital visit by physician [facility] (I-Stat) Work Phone: Cat Scan Comment on above: Lung nodules [R91.8] Start: 04-18-2023 Refill Gurmeet MIRANDA RN.MANGLE PRESS CATCHER Work Phone: [facility] [place] Comment on above: Refill Request Start: 03-14-2023 End: 03-14-2023 Patient encounter procedure Millie Sánchez MD Work Phone: Pulmonary Medicine Comment on above: Stage 4 very severe COPD by GOLD classification (FORM[facility]) (Primary Dx); Chronic hypoxemic respiratory failure (HCC) [...] Alberto Avelar MD Work Phone: [facility] [place] Comment on above: Pulmonary emphysema, unspecified emphysema type (HCC) (Primary Dx); Stage 4 very severe COPD by GOLD classification ([facility]) Start: 11-26-2022 ambulatory Helen Aparicio PA-C Work Phone: Pulmonary Medicine Comment on above: Question about medic ine Start: 11-25-2022 ambulatory Helen Aparicio PA-C Work Phone: Pulmonary Medicine Comment on above: Electric priority Start: 11-14-2022 ambulatory Gurmeet MIRANDA RN.MANGLE PRESS CATCHER Work Phone: [facility] [place] Comment on above: Lift chair Start: 11-14-2022 End: 11-14-2022 Patient encounter procedure Helen Newman PA-C Work Phone: Pulmonary Medicine Comment on above: Stage 4 very severe COPD by GOLD classification ([facility]) (Primary Dx); Asthma-COPD overlap syndrome (HCC); History of seasonal allergies; Former cigarette smoker; GHASSAN (obstructive sleep apnea); Dependence on nocturnal oxygen therapy Start: 11-03-2022 ambulatory Hleen Aparicio PA-C Work Phone: Pulmonary Medicine Comment on above: Lung infection Start: 07-06-2022 ambulatory Helen Aparicio PA-C Work Phone: Pulmonary Medicine Comment on above: Changed insurance Start: 05-21-2022 End: 05-21-2022 Patient encounter procedure Nigel Taveras DIOGO.MANGLE PRESS CATCHER Work Phone: [facility] Comment on above: COPD with exacerbati on (FORMERLY [facility]) (Primary Dx) Start: 05-17-2022 ambulatory Helen pAaricio PA-C Work Phone: Pulmonary Medicine Comment on above: Shots Start: 04-27-2022 Chart abstracting Nurse [facility] Work Phone: Pulmonary Medicine Start: 04-22-2022 Refill Gurmeet MIRANDA RN.MANGLE PRESS CATCHER Work Phone: [facility] Comment on above: Refill Request Start: 03-23-2022 ambulatory Millie Sánchez MD Work Phone: Pulmonary Medicine Comment on above: Results Vaccines Start: 03-23-2022 E-mail encounter fro m caregiver Millie Sánchez MD Work Phone: [facility] [place] Start: 03-22-2022 ambulatory Millie Sánchez MD Work Phone: Pulmonary Medicine Comment on above: Question regarding A LGN BOISE BLD Start: 03-16-2022 End: 03-16-2022 Subsequent hospital visit by physician [facility] Wstr (I-Stat) Work Phone: Cat [...] Start: 03-04-2022 End: 03-04-2022 [facility]ulatory [facility] Work Phone: [facility] Comment on above: Spirometry Inspire device Start: 03-04-2022 E-mail encounter lisette m caregiver Millie Sánchez MD Work Phone: [facility] [employer] Start: 03-04-2022 End: 03-04-2022 Patient encounter procedure Respiratory Therapist [facility] Work Phone: [facility] Comment on above: Stage 4 very severe COPD by GOLD classification (HCC) (Primary Dx); Asthma-COPD overlap syndrome (HCC); 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HCC); Former cigarette smoker; History of seasonal allergies Start: 02-25-2022 Chart abstracting Helen conte PA-C Work Phone: Pulmonary Medicine Start: 02-03-2022 End: 02-03-2022 ambulatory Alvaro Reynaga Lakia ARREDONDOMANGLE PRESS CATCHER Work Phone: Neurology Comment on above: Obstructive sleep ap alexander (Primary Dx) Start: 02-03-2022 End: 02-03-2022 Telemedicine consultation with patient Alvaro Juhi Dorman APRN.MANGLE PRESS CATCHER Work Phone: [place] [id number] Start: 01-06-2022 Telephone encounter Shaun Hernandez MD Work Phone: Neurology Comment on above: Electronic Communica tion Start: 12-30-2021 End: 12-30-2021 ambulatory Shaun Hernandez MD Work Phone: Neurology Comment on above: GHASSAN (obstructive sle ep apnea); GHASSAN on CPAP Start: 12-30-2021 End: 12-30-2021 Telemedicine consultation with patient Shaun Hernandez Jr., MD Work Phone: [facility] Start: 12-15-2021 ambulatory Helen Reynaga Leif piña PA-C Work Phone: Pulmonary Medicine Comment on above: FMLA paperwork from [facility] Start: 11-25-2021 Chart abstracting Helen conte PA-C Work Phone: Pulmonary Medicine Start: 11-18-2021 ambulatory Helen Aparicio PA-C Work Phone: Pulmonary Medicine Comment on above: CPAP machine Start: 10-22-2021 Refill Helen aYdav ayana PA-C Work Phone: Pulmonary Medicine Comment on above: Refill Request Procedures Date Procedure Procedure Detail Performing Clinician Start: 02-21-2025 Plain chest X-ray Dr. Juhi Avelar MD Work Phone: Start: 02-21-[address] Alberto Avelar MD Work Phone: Start: 07-30-2024 Radiologic exam ches t 2 views Mily Tapia PODIATRIST ASSISTANT.MANGLE PRESS CATCHER Work Phone: Start: 07-30-2024 Lipid 1996 panel - S nati or Plasma Gurmeet Tao PODIATRIST ASSISTANT.MANGLE PRESS CATCHER Work Phone: Start: 02-29-2024 Noninvasive ear/puls e oximetry multiple deter Helen Newman PA-C Work Phone: Start: 08-29-2023 Spmtry w/vc expirato ry natty w/wo mxml vol vntj Helen Newman PA-C Work Phone: Start: 04-24-2023 Ct thorax w/o contra st material Nathalie Mojica PODIATRIST ASSISTANT.MANGLE PRESS CATCHER Work Phone: Start: 09-14-2022 Ct thorax w/o contra st material Millie Sánchez MD Work Phone: Start: 03-04-2022 Spmtry w/vc expirato ry natty w/wo mxml vol vntj Helen Newman PA-C Work Phone: Start: 02-02-2022 Adult depression scr eening assessment Alvaro Dorman APRN.MANGLE PRESS CATCHER Work Phone: Start: 12-26-2021 Adult depression scr [...] Author Start: 07-30-2029 Lipid panel Lipid Screening [facility] Start: 07-30-2029 Prostate specific antigen measurement Prostate Cancer Screening Discussion [facility] Start: 04-10-2029 Colonoscopy COLONOSCOPY [facility] Start: 04-10-2029 COLORECTAL CANCER SCREENING COLORECTAL CANCER SCREENING [facility] Start: 04-10-2029 Screening for malign ant neoplasm of colon [facility] Start: 07-30-2027 Diabetes Screening Diabetes Screenin g [facility] Start: 11-18-2025 Screening for malign ant neoplasm of lung Lung Cancer Screening [facility] Start: 11-01-2025 Annual PCP Team Assistant Chief Engineer yi Disease Visit Annual PCP Team Chronic Disease Visit [facility] Start: 08-01-2025 Annual PCP Team Assistant Chief Engineer yi Disease Visit Annual PCP Team Chronic Disease Visit [facility] Start: 06-18-2025 Annual PCP Team Assistant Chief Engineer yi Disease Visit Annual PCP Team Chronic Disease Visit [facility] Start: 05-26-2025 End: 05-26-2025 Patient encounter procedure Cat Scan Comment on above: 6 month-Lung nodules [R91.8 6 month C/m/n Start: 05-20-2025 Screening for malign ant neoplasm of lung Lung Cancer Screening [facility] Start: 04-03-2025 End: 04-03-2025 Patient encounter procedure 04/03/2025 11:30 AM EDT Office Visit Pulmonary Medicine [address] [place] [address] Lydia Fitzpatrick APRN.MANGLE PRESS CATCHER [address] [place] [address] 3 month f/u Pulmonary Medicine Comment on above: 3 month f/u Start: 04-03-2025 End: 04-03-2025 Patient encounter procedure 04/03/2025 10:20 AM EDT Appointment Cat Scan [address] [place] [address] Cat Scan Comment on above: [address] Start: 03-03-2025 Influenza vaccination Influenza Vacc ine (#1) [facility] Start: 02-21-2025 Admission procedure [facility] Start: 02-21-2025 Hospital admission, emergency, from emergency room, medical nature [facility] Start: 02-21-2025 Taking nasal swab [facility] Start: 02-21-2025 [facility] Start: 02-21-2025 Continuous pulse oximetry [facility] Start: 02-21-2025 Dual pressure spontaneous ventilation support [facility] Start: 02-21-2025 End: 02-21-2025 [facility] Start: 02-21-2025 Bacteria identified in Blood by Culture Blood Culture [facility] Start: 02-20-2025 End: 02-20-2025 Patient encounter procedure Cat Scan Comment on above: [address] 3 month f/u Start: 01-29-2025 End: 04-30-2025 Comprehensive metabolic 2000 panel - Serum or Plasma COMPREHENSIVE METABOLIC PANEL Lab Routine Elevated LFTs Expected: 01/29/2025 (Approximate), Expires: 04/30/2025 [facility] Comment on above: Expected: 01/29/2025 (Approximate), Expires: 04/30/2025 Start: 01-29-2025 End: 04-30-2025 Hemoglobin A1c in Blood HEMOGLOBIN A1C Lab Routine Elevated glucose Expected: 01/29/2025 (Approximate), Expires: 04/30/2025 [facility] Work Phone: Comment on above: Expected: 01/29/2025 (Approximate), Expires: 04/30/2025 Start: 01-29-2025 End: 04-30-2025 Lipid 1996 panel - Serum or Plasma LIPID PANEL BASIC Lab Routine Hyperlipidemia, mixed Expected: 01/29/2025 (Approximate), Expires: 04/30/2025 [facility] Comment on above: Expected: 01/29/2025 (Approximate), Expires: 04/30/2025 Start: 11-18-2024 End: 11-18-2024 Patient encounter procedure Cat Scan Comment on above: 6 month-Lung nodules [R91.8 6 month C/m/n Start: 11-01-2024 End: 11-01-2024 Follow-up encounter 11/01/2024 11:20 AM EDT [facility] [place] [address] [place], [place] [id number] Gurmeet Tao APRN.MANGLE PRESS CATCHER [address] [place] [address] 3 month follow up anxiety, COPD, sleep [facility] [place] Comment on above: 3 month follow up an xiety, COPD, sleep Start: 10-30-2024 End: 10-30-2024 Patient encounter procedure 10/30/2024 11:20 AM EDT Office Visit [facility] [place] [address] [place], [place] [id number] Shalini Jacobo APRN.MANGLE PRESS CATCHER [address] [place] [address] 3 month follow up anxiety, COPD, sleep [facility] [place] Comment on above: 3 month follow up an xiety, COPD, sleep Start: 10-18-2024 End: 10-18-2024 ambulatory 10/18/2024 1:00 PM EDT [facility] Pulmonary Medicine [address] [place] [address] Mily Tapia PODIATRIST ASSISTANT.MANGLE PRESS CATCHER [address] [facility] [address] [place] [address] 6 MTH F/U Pulmonary Medicine Comment on above: 6 MTH F/U Start: 10-18-2024 End: 10-18-2024 Patient encounter procedure 10/18/2024 1:00 PM EDT Office Visit Pulmonary Medicine [address] [place] [address] Mily Tapia APRN.MANGLE PRESS CATCHER [address] [place] [address] 6 MTH F/U Pulmonary Medicine Comment on above: 6 MTH F/U Start: 08-30-2024 End: 08-30-2024 Patient encounter procedure 08/30/2024 1:30 PM EST Office Visit Pulmonary Medicine [address] [place] [address] Mily Tapia APRN.MANGLE PRESS CATCHER [address] [place] [address] 6 MTH F/U Pulmonary Medicine Comment on above: 6 MTH F/U Start: 08-01-2024 End: 08-01-2024 Patient encounter procedure 08/01/2024 10:00 AM EST Office Visit Family [facility] [place] [address] [place] [address] Alberto Avelar MD [address] [place] [address] [facility] hosp 07/22/24 [place] [facility] [place] Comment on above: [facility] hosp 07/22/24 [facility] Start: 07-30-2024 End: 07-30-2024 Patient encounter procedure Pulmonary Medicine Comment on above: [facility] Hosp follow up [place] [facility] hosp 07/22/24 [facility] Start: 06-18-2024 End: 09-17-2024 Comprehensive metabolic 2000 panel - Serum or Plasma COMPREHENSIVE METABOLIC PANEL Lab Routine Screening for diabetes mellitus Expected: 06/18/2024, Expires: 09/17/2024 [facility] Comment on above: Expected: 06/18/2024 , Expires: 09/17/2024 Start: 06-18-2024 End: 09-17-2024 LIPID PANEL, NONFASTING LIPID PANEL, NONFASTING Lab Routine Screening for lipid disorders Expected: 06/18/2024, Expires: 09/17/2024 [facility] Comment on above: Expected: 06/18/2024 , Expires: 09/17/2024 Start: 06-18-2024 End: 09-17-2024 PSA/PROSTATE SPECIFIC ANTIGEN SCREENING PSA/PROSTATE SPECIFIC ANTIGEN SCREENING Lab Routine Screening for prostate cancer Expected: 06/18/2024, Expires: 09/17/2024 [facility] Work Phone: Comment on above: Expected: 06/18/2024 , Expires: 09/17/2024 Start: 06-18-2024 End: 06-18-2024 Patient encounter procedure 06/18/2024 1:40 PM EST Office Visit Family Medicine [place] [address] [place] [id number] Gurmeet Tao APRN.MANGLE PRESS CATCHER [address] [place] [address] Yearly exam [facility] [place] Comment on above: Yearly exam Start: 05-20-2024 End: 05-20-2024 Patient encounter procedure Cat Scan Comment on above: Lung nodules [R91.8] Lung screening Start: 04-24-2024 [facility] Start: 04-24-2024 Screening for malign ant neoplasm of lung Lung Cancer Screening [facility] Start: 03-03-2024 Covid-19 Vaccine ( season) Covid-19 Vaccine ( season) [facility] Start: 03-03-2024 Influenza vaccination Influenza Vacc ine (#1) [facility] Start: 02-29-2024 End: 02-29-2024 Patient encounter procedure 02/29/2024 1:45 PM EDT Office Visit Pulmonary Medicine [address] [place] [address] Millie Sánchez MD [address] [place] [address] 6 month f/u Pulmonary Medicine Comment on above: 6 month f/u Start: 02-29-2024 End: 02-29-2024 ambulatory 02/29/2024 1:15 PM EDT Procedure PULM LAB [facility] [address] [place] [address] Wstr, Pulm Lab [facility] [address] [place] [address] Stage 4 very severe COPD by GOLD classification (HCC) [J44.9]; Chronic hypoxemic respiratory failure (HCC) [J96.11] PULM LAB [facility] Comment on above: Stage 4 very severe COPD by GOLD classification (HCC) [J44.9]; Chronic hypoxemic respiratory failure (HCC) [J96.11] Start: 01-01-2024 DIABETES SCREEN DIABETES SCREEN [facility] Start: 01-01-2024 Diabetes Screening Diabetes Screenin g [facility] Start: 12-02-2023 ANNUAL PCP TEAM GROCERY CHECKER YI DISEASE VISIT ANNUAL PCP TEAM CHRONIC DISEASE VISIT [facility] Start: 07-03-2023 Behavioral Health Screening Behavioral Health Screening [facility] Start: 07-03-2023 Depression Assessment Depression Ass essment [facility] Start: 05-17-2023 PNEUMOCOCCAL (2 - PCV) PNEUMOCOCCAL (2 - PCV) [facility] Start: 03-16-2023 Influenza vaccination LUNG CANCER SC REENING [facility] Start: 03-03-2023 Covid-19 Vaccine ( season) Covid-19 Vaccine ( season) [facility] Start: 03-03-2023 Influenza vaccination C [facility] Start: 02-02-2023 Adult depression screening assessment DEPRESSION SCREENING [facility] Start: 12-26-2022 Adult depression screening assessment DEPRESSION SCREENING [facility] Start: 11-15-2022 PROSTATE CANCER SCREENING DISCUSSION PROSTATE CANCER SCREENING DISCUSSION [facility] Start: 11-15-2022 Prostate specific antigen measurement Prostate Cancer Screening Discussion [facility] Start: 07-12-2022 SHINGRIX VACCINE (2 of 2) SHINGRIX VACCINE (2 of 2) [facility] Start: 07-03-2022 DEPRESSION ASSESSMENT DEPRESSION ASS ESSMENT [facility] Start: 06-20-2022 COVID-19 VACCINE (5 - Booster for Pfizer series) COVID-19 VACCINE (5 - Booster for Pfizer series) [facility] Start: 06-20-2022 COVID-19 VACCINE (5 - Pfizer series) COVID-19 VACCINE (5 - Pfizer series) [facility] Start: 03-04-2022 End: 05-04-2022 ALGN BOISE GRP ALGN BOISE GRP Lab Routine Asthma-COPD overlap syndrome (HCC) Expected: 03/04/2022, Expires: 05/04/2022 [facility] Work Phone: Comment on above: Expected: 03/04/2022 , Expires: 05/04/2022 Start: 03-04-2022 End: 05-04-2022 Eosinophils [#/volume] in Blood EOSINOPHIL ABS COUNT Lab Routine Asthma-COPD overlap syndrome (HCC) Expected: 03/04/2022, Expires: 05/04/2022 [facility] Work Phone: Comment on above: Expected: 03/04/2022 , Expires: 05/04/2022 Start: 03-04-2022 End: 05-04-2022 IgE [Units/volume] in Serum or Plasma IGE BLD Lab Routine Asthma-COPD overlap syndrome (HCC) Expected: 03/04/2022, Expires: 05/04/2022 [facility] Work Phone: Comment on above: Expected: 03/04/2022 , Expires: 05/04/2022 Start: 03-03-2022 Influenza vaccination INFLUENZA (#1) [facility] Start: 11-07-2021 COVID-19 VACCINE (4 - Booster for Pfizer series) COVID-19 VACCINE (4 - Booster for Pfizer series) [facility] Start: 09-04-2021 COVID-19 VACCINE (4 - Booster for Pfizer series) COVID-19 VACCINE (4 - Booster for Pfizer series) [facility] Start: 07-03-2021 DEPRESSION ASSESSMENT DEPRESSION ASS ESSMENT [facility] Start: 05-26-2021 PNEUMOCOCCAL (2 - PCV) PNEUMOCOCCAL (2 - PCV) [facility] Start: 05-15-2021 ANNUAL PCP TEAM GROCERY CHECKER YI DISEASE VISIT ANNUAL PCP TEAM CHRONIC DISEASE VISIT [facility] Start: 01-04-2021 Lipid 1996 panel - S nati or Plasma Lipid Screening [facility] Start: 01-04-2021 Lipid panel Lipid Screening [facility] Start: 01-04-2021 LIPID SCREEN LIPID SCREEN [facility] Start: 09-22-2018 Adult depression screening assessment DEPRESSION SCREENING [facility] Start: 11-15-2017 Influenza vaccination LUNG CANCER [facility] Start: 11-15-2017 SHINGRIX VACCINE (1 of 2) SHINGRIX VACCINE (1 of 2) [facility] Start: 11-15-2012 COLOGUARD (FIT-DNA) COLOGUARD (FIT-D NA) [facility] Start: 11-15-[address] COLONOGRAPHY [facility] Start: 11-15-2012 FECAL OCCULT BLOOD FECAL OCCULT BLOO D [facility] Start: 11-15-2012 Screening for malign ant neoplasm of colon [facility] Start: 11-15-2012 SIGMOIDOSCOPY SIGMOIDOSCOPY [facility] Start: 11-15-1986 Hepatitis B Vaccine (1 of 3 - 19+ 3-dose series) Hepatitis B Vaccine (1 of 3 - 19+ 3-dose series) [facility] Start: 11-15-1986 Urine microalbumin profile [facility] Start: 11-15-1985 Anxiety Screening Anxiety Screening [facility] Start: 11-15-1985 Depression Screening Depression Scre ing [facility] Start: 11-15-1985 HEPATITIS C SCREENING HEPATITIS C [facility] Start: 11-15-1985 Hepatitis C screening Hepatitis C [facility] Start: 11-15-1985 HIV SCREENING HIV SCREENING [facility] Start: 11-15-1985 HIV screening HIV Screening [facility] Start: 1965 HEPATITIS B (1 of 3 - 3-dose series) HEPATITIS B (1 of 3 - 3-dose series) [facility] Start: 1965 Hepatitis B Vaccine (1 of 3 - 3-dose series) Hepatitis B Vaccine (1 of 3 - 3-dose series) [facility] CT Chest WO contrast CT CHEST WO IVCON Radiology Routine Lung nodules 05/20/2024 11:37 AM EST [facility] Work Phone: End: 06-26-2025 CT Chest WO contrast CT CHEST WO IVCON Radiology Routine Lung nodules 1 Occurrences starting 05/27/2024 until 06/26/2025 [facility] Work Phone: Comment on above: 1 Occurrences starti ng 05/27/2024 until 06/26/2025 End: 12-18-2025 CT Chest WO contrast CT CHEST WO IVCON Radiology Routine Lung nodules 1 Occurrences starting 11/18/2024 until 12/18/2025 [facility] Work Phone: Comment on above: 1 Occurrences starti ng 11/18/2024 until 12/18/2025 CT Chest WO contrast CT CHEST WO IVCON Radiology Routine Lung nodules 11/18/2024 11:10 AM EDT [facility] Work Phone: End: 04-03-2023 Ct thorax w/o contrast material CT CHEST WO IVCON Radiology Routine Stage 4 very severe COPD by GOLD classification (HCC) 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HCC) 1 Occurrences starting 03/04/2022 until 04/03/2023 [facility] Work Phone: Comment on above: 1 Occurrences starti ng 03/04/2022 until 04/03/2023 End: 05-30-2024 Ct thorax w/o contrast material CT CHEST WO IVCON Radiology Routine Lung nodules 1 Occurrences starting 05/01/2023 until 05/30/2024 [facility] Work Phone: Comment on above: 1 Occurrences starti ng 05/01/2023 until 05/30/2024 End: 12-14-2023 OXIMETRY WITH AMBULATION OXIMETRY WITH AMBULATION PFT Routine Stage 4 very severe COPD by GOLD classification (HCC) 1 Occurrences starting 11/14/2022 until 12/14/2023 [facility] Work Phone: Comment on above: 1 Occurrences starti ng 11/14/2022 until 12/14/2023 End: 09-27-2024 OXIMETRY WITH AMBULATION OXIMETRY WITH AMBULATION PFT Routine Stage 4 very severe COPD by GOLD classification (HCC) Chronic hypoxemic respiratory failure (HCC) 1 Occurrences starting 08/29/2023 until 09/27/2024 [facility] Work Phone: Comment on above: 1 Occurrences starti ng 08/29/2023 until 09/27/2024 Pulmonary rehabilita tion pro CONSULT PULMONARY REHABILITATION PROGRAM Procedures Routine COPD, severe ([facility]) Ordered: 10/18/2024 [facility] Work Phone: Comment on above: Ordered: 10/18/2024 Respiratory pathogen s DNA and RNA panel - Respiratory specimen by MAHESH with probe detection [facility] SPIROMETRY BASELINE ONLY SPIROME TRY BASELINE ONLY PFT Routine Stage 3 severe COPD by GOLD classification ([facility]) 03/04/2022 10:57 AM EDT [facility] Work Phone: [facility] Immunizations Immunization Date Immunization Notes Care Provider [facility] 07-22-2024 influenza, seasonal, injectable Mily Click PODIATRIST ASSISTANT.MANGLE PRESS CATCHER Work Phone: [facility] 07-22-2024 pneumococcal conjuga te (PCV20) vaccine, 20 valent (PREVNAR 20) Mily Click PODIATRIST ASSISTANT.MANGLE PRESS CATCHER Work Phone: [facility] 07-22-2024 influenza virus vacc ine, unspecified formulation Mily Click PODIATRIST ASSISTANT.MANGLE PRESS CATCHER Work Phone: [facility] 07-21-2024 influenza, seasonal, injectable, preservative free Dr. Alberto Avelar MD Work Phone: [facility] 01-15-2024 zoster vaccine recombinant Millie Sánchez MD Work Phone: [facility] 04-11-2023 influenza, injectabl e, quadrivalent, contains preservative Gurmeet Aislinn PODIATRIST ASSISTANT.MANGLE PRESS CATCHER Work Phone: [facility] 04-11-2023 influenza virus vacc ine, unspecified formulation Millie Sánchez MD Work Phone: [facility] 11-15-2022 pneumococcal (PCV20) vaccine, 20 valent (PREVNAR 20) Helen Newman PA-C Work Phone: [facility] Work Phone: 05-17-2022 pneumococcal polysaccharide vaccine, 23 valent Helen Yadavone PA-C Work Phone: [facility] 05-17-2022 zoster vaccine recombinant Helen Newman PA-C Work Phone: [facility] 04-25-2022 COVID-19 vaccine (UNSPECIFIED) Nurse Wstr Work Phone: [facility] 04-25-2022 COVID-19 vaccine, ag e 12+ yr, bivalent (PFIZER-BIONTECH) Helen Yadavone PA-C Work Phone: [facility] Work Phone: 04-25-2022 Influenza, injectabl e, Madin Ana Canine Kidney, preservative free, quadrivalent Helen Yadavone PA-C Work Phone: [facility] Work Phone: 04-25-2022 influenza, seasonal, injectable Nurse Wstr Work Phone: [facility] 04-25-2022 influenza virus vacc ine, unspecified formulation Millie Sánchez MD Work Phone: [facility] 07-10-2021 Influenza, injectabl e, Madin Erick Canine Kidney, quadrivalent with preservative Helen Yadavone PA-C Work Phone: [facility] Work Phone: 11-12-2020 COVID-19 vaccine, ag e 12+ yr (PFIZER-BIONTECH - PURPLE TOP) Helen Yadavone PA-C Work Phone: [facility] 10-22-2020 COVID-19 vaccine, ag e 12+ yr (PFIZER-BIONTECH - PURPLE TOP) Helen Yadavone PA-C Work Phone: [facility] 05-26-2020 pneumococcal polysaccharide vaccine, 23 valent Helen Yadavone PA-C Work Phone: [facility] Work Phone: 05-15-2020 influenza, injectabl e, quadrivalent, contains preservative Helen Newman PA-C Work Phone: [facility] Payers Date Payer Category Payer Self-pay 2023 [employer] BLUE ACCE SS PPO [id number] 2023 Unknown [id number] 2017 Unknown MMO MMO [employer] [id number] 2017-Present [phone] [address] [place] [address] PPO [id number] 2017 Unknown [id number] Unknown [id number] Unknown [id number] Unknown [id number] Unknown [id number] Social History Date Type Detail Facility Start: 10-29-2015 End: 02-29-2024 Tobacco smoking status NHIS Ex-smoker [facility] Start: 1977 End: 09-06-2015 History of tobacco use Current smoker [facility] Start: 10-29-2015 End: 12-01-2022 Cigarettes smoked current (pack per day) - Reported 1 [facility] Start: 10-29-2015 End: 02-29-2024 Tobacco use and exposure User of smokeless tobacco [facility] History of tobacco use Chews Tobacco [facility] Start: 09-03-2021 End: 02-21-2025 Alcohol intake Current drinker of alcohol (finding) [facility] Start: 05-13-2020 End: 11-25-2022 History SDOH Alcohol Frequency 1 [facility] [facility] Start: 05-13[facility]2020 End: 11-25-2022 History SDOH Alcohol Std Drinks 98 [facility] Start: 09-03-2021 History SDOH Alcohol Comment 1 beer a night [facility] Start: 05-13-2020 History SDOH Social Connections Phone 5 [facility] Start: 05-13-2020 End: 11-25-2022 History SDOH Social Connections Get Together 3 [facility] Start: 05-13-2020 End: 11-25-2022 History SDOH Social Connections Membership 2 [facility] Start: 05-13-2020 End: 11-25-2022 History SDOH Physical Activity DPW 0 [facility] Start: 05-13-2020 Education 21 [facility] Start: 09-22-2016 End: 03-04-2022 Tobacco Comment No smokers in current home. [facility] Start: 1965 Sex Assigned At Not on file C [facility] Start: 2021 End: 05-21-2022 Exposure to SARS-CoV-2 (event) Not sure [facility] Start: 1979 End: 09-06-2015 History of tobacco use Cigarette Smoker [facility] Start: 11-25-2022 History SDOH Financial 4 [facility] Start: 11-25-2022 End: 12-01-2022 Social connection and isolation panel [facility] Start: 06-03-2012 In a typical week, h ow many times do you talk on the telephone with family, friends, or neighbors? Patient refused [facility] Do you belong to any clubs or organizations such as yazidism groups, unions, fraternal or athletic groups, or school groups? No [facility] Are you now , , , , never or living with a partner? [facility] How often to you hav e a drink containing alcohol? Monthly or less [facility] How many standard dr inks containing alcohol do you have on a typical day? 1 or 2 [facility] How often do you hav e 6 or more drinks on 1 occasion? Never [facility] How hard is it for y ou to pay for the very basics like food, housing, medical care, and heating Not very hard [facility] Do you feel stress - tense, restless, nervous, or anxious, or unable to sleep at night because your mind is troubled all the time - these days [OSQ] Only a little [facility] (I/We) worried catrina er (my/our) food would run out before (I/we) got money to buy more. Never true [facility] Start: 08-26-2019 Alcohol Alcohol [facility] Start: 08-26-2019 Lives Lives [facility] Start: 1965 Sex Assigned At Male W [facility] Medical Equipment Procedure Code Equipment Code Equipment Original Text Equipment Identifier Dates Clip Sugita 10mm Standard Titanium 2 9mm Aneurysm Slightly Curved - [id number] Start: 01-06-2016 Clip Sugita 7mm Mini Titanium 2 6mm Aneurysm Straight Nonsterile - [id number] Start: 01-06-2016 Clip Aneurysm Ti i 10.5 Str 10mm - [id number] Start: 01-06-2016 Cover 14mm Low P rofile Titanium Alma Delia Hole Tab 1.5mm Screw Nonsterile - [id number] Start: 01-06-2016 Cover 10mm Mediu m Titanium Alma Delia Hole Low Profile Tab 1.5mm Screws - [id number] Start: 01-06-2016 Cover 20mm Titan ium Alma Delia Hole Low Profile Tab Craniomaxillofacial - [id number] Start: 01-06-2016 Plate 2y Micro L ow Profile 8mm Bone 6 Hole Bar Cranium - [id number] Start: 01-06-2016 Screw 1.5mm 4mm Bone Self Drill Cross Pin Craniomaxillofacial - [id number] Start: 01-06-2016 Screw 1.5mm 4mm Bone Self Drill Cross Pin Craniomaxillofacial - [id number] Start: 01-06-2016 Functional Status Date Assessment Result Facility 01-15-2016 Are you deaf, or do you have serious difficulty hearing No 01/15/2016 7:21 PM EDT Flaca Greer RN No [facility] 01-15-2016 Are you blind, or do you have serious difficulty seeing, even when wearing glasses No 01/15/2016 7:21 PM EDT Flaca Greer RN No [facility] 01-15-2016 Do you have serious difficulty walking or climbing stairs No 01/15/2016 7:21 PM EDT Flaca Greer RN No [facility] 01-15-2016 Do you have difficul ty dressing or bathing No 01/15/2016 7:21 PM EDT Flaca Greer RN No [facility] 01-15-2016 Because of a physica l, mental, or emotional condition, do you have difficulty doing errands alone such as visiting a physician's office or shopping No 01/15/2016 7:21 PM EDT Flaca Greer RN No [facility] Mental Status Date Assessment Result Facility 01-15-2016 Because of a physica l, mental, or emotional condition, do you have serious difficulty concentrating, remembering, or making decisions No 01/15/2016 7:21 PM EDT Flaca Greer RN No [facility] Clinical Notes 11-25-2021 to 02-21-2025 Raven Tan APRN.MANGLE PRESS CATCHER - 02/21/2025 4:11 PM EDTTelephone Encounter - Renee Perez MA - 01/28/2025 3:48 PM EDTTelephone Encounter - Renee Perez MA - 01/28/2025 3:48 PM EDT Note Date & Type Note Facility 02-21-2025 Radiology Diagnostic study note [facility] Imaging Services [address] [place] [address] Chest 1 View MR#: [id number] Acct: [id number] Name: KARLI DUKE Rep #: [id number] : 1965 M 59 From: Alex Calzada MD PCP: Dr. Alberto Avelar MD Status: RE G ER Study:Chest 1 View Date of Exam: 5 Exam# [id number] Ordering Dr: Stefanie Leslie PROCEDURE: CHEST 1 [...] and small left pleural effusions. Reading Location: [facility] CC: Dr. Alberto Avelar MD; CHRISTIANE Mckeon ~ Metal Buildings Assembler: Signed [facility] 02-21-2025 History of Presen t illness Narrative [facility] Karli Duke is a 59 year old [...] Squad transport, and to transport him to [facility]. and Recording using Venaxis software for draft documentation of the visit was discussed with the patient/authorized traveling representative; all questions welcomed and answered. Patient/authorized traveling representative agreed to proceed MDM Patient has significant complex medical history Stage 4 COPD, 2 liters at baseline. Patient presents with pursed lip breathing, bilateral leg swelling, and abnormal vitals pt triaged to ER, declines squad transport to take him to [facility]. documented in this encounter [facility] 01-28-2025 Telephone encounter Note Advised pt via mychart that he needs an appointment to evaluate swelling. Renee Perez MA [facility] 01-28-2025 Miscellaneous Notes Advised pt via mychart that he needs an appointment to evaluate swelling. Renee Perez MA documented in this encounter [facility] 01-21-2025 Telephone encounter Note Patient phones requesting refills as follows: THOMAS 07/30/24 Requested Prescriptions Pending Prescriptions Disp Refills fluticasone daygete-rztldmceorjf-vvavjsbpmn (TRELEGY ELLIPTA) 200-62.5-25 mcg powder inhaler 180 each 3 Sig: Inhale 1 puff as instructed once daily. Please review and advise. Yulisa Keith LPN [facility] 01-21-2025 Miscellaneous Notes Patient phones requesting refills as follows: THOMAS 07/30/24 Requested Prescriptions Pending Prescriptions Disp Refills fluticasone snpzjme-gcyhavhyypui-ctbvjgpbbc (TRELEGY ELLIPTA) 200-62.5-25 mcg powder inhaler 180 each 3 Sig: Inhale 1 puff as instructed once daily. Please review and advise. Yulisa Keith LPN documented in this encounter [facility] 01-15-2025 Telephone encounter Note The following approved medication requests have been transmitted electronically. Requested Prescriptions Pending Prescriptions Disp Refills traZODone (DESYREL) 50 mg tablet 90 tablet 1 Sig: Take 1 tablet by mouth daily at bedtime. Gurmeet Tao APRN.STACY [facility] 01-15-2025 Miscellaneous Notes The following approved [...] 2025 1:59 PM documented in this encounter [facility] 01-15-2025 Telephone encounter Note Prescription Refill [...] Pat LPN January 15, 2025 1:59 PM [facility] 01-07-2025 Telephone encounter Note Attempted to contact patient. Left detailed voicemail offering afternoon appointment today. Yulisa Keith LPN [facility] 01-07-2025 Miscellaneous Notes Attempted to contact patient. Left detailed voicemail offering afternoon appointment today. Yulisa Keith LPN documented in this encounter [facility] 11-28-2024 Telephone encounter Note Pt returned my phone call and is feeling much better. He agrees with the 3 month follow up. He should follow up with pulmonology or myself if he is having any issues in the interim. He will check My Chart for his appointments. Nathalie Mojica APRN.MANGLE PRESS CATCHER [facility] 11-28-2024 Miscellaneous Notes Pt returned my [...] findings I reviewed his case with his cnp and we are recommending a 3 month follow up. Nathalie Mojica APRN.CNP November 28, 2024 12:35 PM documented in this encounter [facility] 11-28-2024 Telephone encounter Note Left message for pt to call back regarding results. Plan to discuss CT Results Stable lung nodules. Multifocal infectious inflammatory disease. Recommendations: He was treated with levaquin and prednisone. For lung nodule follow up 12 months would be recommended. However, with the infectious inflammatory findings I reviewed his case with his cnp and we are recommending a 3 month follow up. Nathalie Mojica APRN.CNP November 28, 2024 12:35 PM [facility] 11-27-2024 Telephone encounter Note THOMAS: 10/18/24 with Mily Tapia Future OV: Visit date not found Patient requests via Perceptishart refills as follows: Requested Prescriptions Pending Prescriptions Disp Refills pantoprazole DR (PROTONIX) 40 mg tablet 90 tablet 3 Sig: Take 1 tablet by mouth every afternoon. Please review and advise. Claudia Dean RN [facility] 11-27-2024 Miscellaneous Notes THOMAS: 10/18/24 with Mily Click Future OV: Visit date not found Patient requests via MyChart refills as follows: Requested Prescriptions Pending Prescriptions Disp Refills pantoprazole DR (PROTONIX) 40 mg tablet 90 tablet 3 Sig: Take 1 tablet by mouth every afternoon. Please review and advise. Claudia Dean RN documented in this encounter [facility] 11-18-2024 Instructions Nathalie Mojica APRN.CNP - [...] prednisone and levaquin today. Follow up with cnp if any new or unresolving symptoms. If you are feeling worse please go to the emergency room. We will follow up on the CT Scan in 2-3 months. documented in this encounter [facility] 11-18-2024 History of Presen t illness Narrative Images from the original note were not included. [facility] INCIDENTAL LUNG NODULE PROGRAM Impression / Recommendations 1. Lung nodules (Primary) JANNET nodule of concern is resolved. All other nodules are small and stable. There are new inflammatory opacities in RML, RLL, and LLL. 2. Nicotine Dependence, Former: Continue to abstain from smoking cigarettes. 3. Stage 4 very severe COPD by GOLD classification (HCC) Continue to follow up with cnp. On supplemental oxygen, Trelegy and singulair daily. Take prednisone and levaquin starting today. Reviewed instructions for nebulizers and albuterol use. Recommended Duoneb every 6 hours and budesonide nebulizer twice daily for the next few days then can transition to as needed. He may use albuterol inhaler every 4 hours in coordination with duoneb doses. Follow up with cnp if any new or continued symptoms. If [...] images. Pt had interval CTA Chest at [facility] 07/20/2024 and the JANNET 5 mm [...] 74.8 kg (165 lb)] Modified Medical Research Yocha Dehe Dyspnea Scale (MMRC) I am too breathless [...] DATE OF EXAM: May 20 2024 11:37AM [facility] 0541 - CT CHEST WO IVCON [...] few additional stable scattered pulmonary nodules with traveling representative measurements as follows. Stable 4 mm [...] right upper lobe groundglass opacity appear stable. Metal Buildings Assembler: FABIANA Transcribe Date/Time: May 22 2024 12:58P [...] FEV1/FVC PRE (%) % 26 27 29 FJO10-03% PRE (L/S) L/S 0.16 0.19 0.19 PEF [...] Lung Nodule Surveillance Lung Nodule Program Location: [facility] documented in this encounter [facility] 11-18-2024 Note HNO ID: [id number] Author: NATHALIE MOJICA APRN.CNP Service: ? Author Type: Nurse Practitioner Type: Progress Notes Filed: 11/18/2024 13:24 Note Text: [facility] INCIDENTAL LUNG NODULE PROGRAM Impression / Recommendations 1. Lung nodules (Primary) JANNET nodule of concern is resolved. All other nodules are small and stable. There are new inflammatory opacities in RML, RLL, and LLL. 2. Nicotine Dependence, Former: Continue to abstain from smoking cigarettes. 3. Stage 4 very severe COPD by GOLD classification (HCC) Continue to follow up with cnp. On supplemental oxygen, Trelegy and singulair daily. Take prednisone and levaquin starting today. Reviewed instructions for nebulizers and albuterol use. Recommended Duoneb every 6 hours and budesonide nebulizer twice daily for the next few days then can transition to as needed. He may use albuterol inhaler every 4 hours in coordination with duoneb doses. Follow up with cnp if any new or continued symptoms. If [...] images. Pt had interval CTA Chest at [facility] 07/20/2024 and the JANNET 5 mm [...] 74.8 kg (165 lb)] Modified Medical Research Yocha Dehe Dyspnea Scale (MMRC) I am too breathless [...] 20 2024 11:37AM (more content not included)... [facility] 11-18-2024 History of [...] PATIENT PRESENTS WITH AN IMPLANTABLE OR ATTACHED SPANISH INTERPRETER/TRANSLATOR: No RADIOLOGY DEPARTMENT: CT; Exam(s) Completed: Chest PERIPHERAL IV DATA: Not applicable SIGNED BY: RT Oralia(Margoth) November 18, 2024 12:30 PM documented in this encounter [facility] 11-18-2024 Note HNO ID: [id number] Author: RENEE ENNIS RT(Margoth) Service: ? Author Type: Hammer Operator Type: Progress Notes Filed: 11/18/2024 12:30 Note [...] PATIENT PRESENTS WITH AN IMPLANTABLE OR ATTACHED SPANISH INTERPRETER/TRANSLATOR: No RADIOLOGY DEPARTMENT: CT; Exam(s) Completed: Chest PERIPHERAL IV DATA: Not applicable SIGNED BY: RT Oralia(R) November 18, 2024 12:30 PM [facility] 11-17-2024 Telephone encounter Note Reason for [...] or WORSE than normal Protocols used: Breathing Dewoenlzle-XNVXG-JA [facility] 11-17-2024 Miscellaneous Notes Reason for Call: [...] or WORSE than normal Protocols used: Breathing Odnybpnvru-UDORA-JJ documented in this encounter [facility] 11-01-2024 History of Presen t illness Narrative Telemedicine Visit - Distance Health Virtual Visit Note Patient seen on RACTIV Video Visit platform. Location of patient: [place] I have communicated my name and active licensure. The patient's identity and physical location were verified at the time of this visit. Either the patient or their legal traveling representative has been informed of the risks [...] and unspecified hyperlipidemia SAH (subarachnoid hemorrhage) ([facility]LY [facility]) Sleep apnea Tobacco abuse Quit 2015. PAST SURGICAL HISTORY Procedure Laterality Date COLONOSCOPY FLX DX W/COLLJ SPEC WHEN PFRMD 04/10/2019 Colonoscopy OTHER ANEURYSM REPAIR 01/04/2017 [facility] PAST SURGICAL HISTORY OF cyst on [...] 1 tablet by mouth daily at bedtime. rfxkvlotsmk-wticwchiy-rsfypiom (TRELEGY ELLIPTA) 200-62.5-25 mcg inhalation powder Inhale [...] Gurmeet Tao APRN.STACY documented in this encounter [facility] 11-01-2024 Note HNO ID: [id number] Author: GURMEET TAO APRN.MANGLE PRESS CATCHER Service: ? Author Type: Nurse Practitioner Type: Progress Notes Filed: 11/01/2024 11:40 Note Text: Telemedicine Visit - Distance Health Virtual Visit Note Patient seen on RACTIV Video Visit platform. Location of patient: [place] I have communicated my name and active licensure. The patient's identity and physical location were verified at the time of this visit. Either the patient or their legal traveling representative has been informed of the risks [...] PFRMD 04/10/2019 Colonoscopy OTHER ANEURYSM REPAIR 01/04/2017 [facility] PAST SURGICAL HISTORY OF cyst on [...] 1 tablet by mouth daily at bedtime. bmojanfishr-fafwenjti-gvvlutix (TRELEGY ELLIPTA) 200-62.5-25 mcg inhalation powder Inhale [...] pleasant, in NAD (more content not included)... [facility] 10-28-2024 Telephone encounter Note Called patient regarding pulmonary rehab program. Patient answered and stated that they will give me a call back when they are interested. Patient has my phone number to call me back. [phone] [facility] 10-28-2024 Miscellaneous Notes Called patient regarding pulmonary rehab program. Patient answered and stated that they will give me a call back when they are interested. Patient has my phone number to call me back. [phone] documented in this encounter [facility] 10-21-2024 Telephone encounter Note Called patient regarding pulmonary rehab program. Patient did not answer, so I left a message on voicemail with instructions on how to contact me. [phone] [facility] 10-21-2024 Miscellaneous Notes Called patient regarding pulmonary rehab program. Patient did not answer, so I left a message on voicemail with instructions on how to contact me. [phone] documented in this encounter [facility] 10-18-2024 History of Presen t illness Narrative VIRTUAL VISIT PROGRESS NOTE This is a virtual visit using Dinomarket Zoom Video Visit. It required patient-provider interaction for the medical decision making as documented below. I have communicated my name and active licensure. The patient's identity and physical location were verified at the time of this visit. Either the patient or their legal traveling representative has been informed of the risks [...] PFRMD 04/10/2019 Colonoscopy OTHER ANEURYSM REPAIR 01/04/2017 [facility] PAST SURGICAL HISTORY OF cyst on [...] 1 tablet by mouth daily at bedtime. fatnxsaepjm-vzpwelbya-hxinroco (TRELEGY ELLIPTA) 200-62.5-25 mcg inhalation powder Inhale [...] which included preparing to see the patient, tjpk-zv-uxvs patient care, completing clinical documentation, performing a medically appropriate examination, counseling and educating the patient/family/caregiver, and ordering medications, tests, or procedures Mily Tapia APRN.STACY documented in this encounter [facility] 10-18-2024 Note HNO ID: [id number] Author: MILY TAPIA APRN.CNP Service: ? Author Type: Nurse Practitioner Type: Progress Notes Filed: 10/18/2024 13:32 Note Text: VIRTUAL VISIT PROGRESS NOTE This is a virtual visit using Jibet Zoom Video Visit. It required patient-provider interaction for the medical decision making as documented below. I have communicated my name and active licensure. The patient's identity and physical location were verified at the time of this visit. Either the patient or their legal traveling representative has been informed of the risks [...] PFRMD 04/10/2019 Colonoscopy OTHER ANEURYSM REPAIR 01/04/2017 [facility] PAST SURGICAL HISTORY OF cyst on [...] 1 tablet by mouth daily at bedtime. odvaypdrnqy-pltcvvqbs-xlskqpcq (TRELEGY ELLIPTA) 200-62.5-25 mcg inhalation powder Inhale [...] pain, no palpitat (more content not included)... [facility] 08-05-2024 Telephone encounter Note Pt was ordered two weeks of Lasix 20 mg while in Hospital. Is he supposed to continue this or d/c. Was seen in office on 08/01/24. Please advise. Abida Khan MA [facility] 08-05-2024 Miscellaneous Notes Pt was ordered two weeks of Lasix 20 mg while in Hospital. Is he supposed to continue this or d/c. Was seen in office on 08/01/24. Please advise. Abida Khan MA documented in this encounter [facility] 08-01-2024 Instructions Renee Perez MA - 08/01/2024 10:24 AM EST Continue with Buspar 10 mg as directed for the anxiety. Use Trazodone 50 mg at bedtime as needed for sleep. Once you know what company you want to use for the motorized scooter, have the company fax paperwork to our office at [phone]. documented in this encounter [facility] 08-01-2024 History of Presen t illness [...] distances due to his SOB and COPD. [facility] Hospital d/c summary: Discharge Diagnosis (1) COPD [...] Mucinex and levofloxacin. Advised follow-up he is cnp Dr. Millie Sánchez in 2 weeks. 2. [...] Past Histories independently gathered by the clinical product support engineer and the remaining scribed note accurately describes my personal service to the patient. Alberto Avelar MD The documentation for this note was completed by Renee Perez MA acting as scribe for Alberto Avelar MD. August 01, 2024 10:10 AM. Renee Perez MA documented in this encounter [facility] 08-01-2024 Note HNO ID: [id number] Author: ALBERTO AVELAR MD Service: ? Author [...] distances due to his SOB and COPD. [facility] Hospital d/c summary: Discharge Diagnosis (1) COPD [...] bilateral pneumonia: [facility] and CTPA initially [...] Mucinex and levofloxacin. Advised follow-up he is cnp Dr. Millie Sánchez in 2 weeks. 2. [...] Antigen - Final (more content not included)... [facility] 08-01-2024 Telephone encounter Note h [facility] 08-01-2024 Miscellaneous Notes h documented in this encounter [facility] 07-30-2024 Instructions Mily Tapia APRN.CNP - 07/30/2024 1:22 PM EST Chest xray today. If Pneumonia has not resolved, will continue antibiotics. Tessalon Perles and Mucinex as needed. An order for the nebulizer will be sent to [facility] documented in this encounter [facility] 07-30-2024 Note HNO ID: [id number] Author: MILY TAPIA APRN.CNP Service: ? Author [...] albuterol. He presents today for hospital follow-up. [facility] 02/29/2024 with relatively stable respiratory symptoms. [...] Asthma COPD (chronic obstructive pulmonary disease) ([facility]) Very severe Dependence on continuous supplemental oxygen Other and unspecified hyperlipidemia SAH (subarachnoid hemorrhage) ([facility]) Sleep apnea Tobacco abuse Quit 2015. Allergies: [...] tablet by mouth three times a day. fvwlvjpzlkt-kqbunpruh-dvhdroxq 200-62.5-25 mcg inhalation powder Commonly known as: [...] right upper lobe groundglass opacity appear stable. Metal Buildings Assembler: FABIANA Transcribe Date/Time: May 22 2024 12:58P Dictated by : BIBI BOWER MD This examination was interpreted and the report reviewed and electronically signed by: BIBI BOWER MD on May 22 2024 1:04PM EST Results-Findings * * *Final Report* * * DATE OF EXAM: May 20 2024 11:37AM [facility] 0541 - CT CHEST WO IVCON [...] (DLP) for thi (more content not included)... [facility] 07-30-2024 History of Presen t illness [...] albuterol. He presents today for hospital follow-up. [facility] 02/29/2024 with relatively stable respiratory symptoms. [...] Asthma COPD (chronic obstructive pulmonary disease) ([facility]) Very severe Dependence on continuous supplemental oxygen Other and unspecified hyperlipidemia SAH (subarachnoid hemorrhage) (FORMERLY [facility]) Sleep apnea Tobacco abuse Quit 2016. Allergies: [...] tablet by mouth three times a day. juqtbmzlztt-emvthphbp-nlhsedlv 200-62.5-25 mcg inhalation powder Commonly known as: [...] right upper lobe groundglass opacity appear stable. Metal Buildings Assembler: FABIANA Transcribe Date/Time: May 22 2024 12:58P Dictated by : BIBI BOWER MD This examination was interpreted and the report reviewed and electronically signed by: BIBI BOWER MD on May 22 2024 1:04PM EST Results-Findings * * *Final Report* * * DATE OF EXAM: May 20 2024 11:37AM [facility] 0541 - CT CHEST WO IVCON [...] few additional stable scattered pulmonary nodules with traveling representative measurements as follows. Stable 4 mm [...] and Levaquin - chest xray requested from [facility] - repeat chest xray today to ensure resolution of pneumonia. Symptomatically improved. - XR CHEST 2V FRONTAL/LAT 3. Stage 4 very severe COPD by GOLD classification (HCC) - ICD9: 496, ICD10: J44.9 - continue Trelegy Ellipta daily - Albuterol as needed - will add Duoneb PRN, orders to be sent to [facility] - NEBULIZER, WITH COMPRESSOR - NEBULIZER [...] which included preparing to see the patient, vjmu-fx-yfam patient care, completing clinical documentation, performing a medically appropriate examination, counseling and educating the patient/family/caregiver, and ordering medications, tests, or procedures. documented in this encounter [facility] 07-23-2024 Note HNO ID: [id number] Author: ALBERTO AVELAR MD Service: ? Author Type: Physician Type: Progress Notes Filed: 07/23/2024 16:51 Note Text: Noted Alberto Avelar MD [facility] 07-23-2024 History of Presen t illness Narrative Noted Alberto Avelar MD TRANSITION CARE MANAGEMENT (TCM) INITIAL CONTACT Lab Courier Outreach Provider Action/FYI: Pt wrote into the office via [email or web address] regarding recent hospital admission for pneumonia. Sent [...] patient post discharge, spoke to patient, via [email or web address]. Patient identified by name and . TRANSITION CARE MANAGEMENT INITIAL OUTREACH DOCUMENTATION: 07/23/2024 Date of Outreach: Outreach Attempt 1: Contact Made Date of Discharge 07/22/2024 SUMMARY: -Pt discharged from [facility] on 07/22/24. -Admitted for: Discharge Diagnosis (1) [...] Mucinex and levofloxacin. Advised follow-up he is cnp Dr. Millie Sánchez in 2 weeks. 2. [...] Yes Medical records from recent hospitalization: Care Everywhere[facility]. Abida Khan MA documented in this encounter [facility] 07-23-2024 Telephone encounter Note Pt agreeable to appt's as scheduled. Abida Khan MA [facility] 07-23-2024 Miscellaneous Notes Pt agreeable to [...] Abida Khan MA documented in this encounter [facility] 07-23-2024 Telephone encounter Note Pt was already scheduled with PCP on 07/30/24. Advised pt to keep appt with PCP and Pulmonary as scheduled. Completed TCM note and routed to PCP. Abida Khan MA [facility] 07-23-2024 Note HNO ID: [id number] Author: ABIDA KHAN MA Service: ? Author Type: Lab Courier Type: Progress Notes Filed: 07/23/2024 16:51 Note Text: TRANSITION CARE MANAGEMENT (TCM) INITIAL CONTACT Lab Courier Outreach Provider Action/FYI: Pt wrote into the office via [email or web address] regarding recent hospital admission for pneumonia. Sent [...] patient post discharge, spoke to patient, via [email or web address]. Patient identified by name and . TRANSITION CARE MANAGEMENT INITIAL OUTREACH DOCUMENTATION: 07/23/2024 Date of Outreach: Outreach Attempt 1: Contact Made Date of Discharge 07/22/2024 SUMMARY: -Pt discharged from [facility] on 07/22/24. -Admitted for: Discharge Diagnosis (1) [...] Mucinex and levofloxacin. Advised follow-up he is cnp Dr. Millie Sánchez in 2 weeks. 2. [...] taking your medicatio (more content not included)... [facility] 07-23-2024 Telephone encounter Note Starting TCM process as pt reached out to office about hospital visit. Per d/c pt to f/u with PCP's office in 1-2 weeks. Abida Khan MA [facility] 07-23-2024 Note Patient Outreach (FA MPWS) KARLI DUKE ([id number]) 1965 M Date Time Provider Department 07/23/24 ALBERTO AVELAR During your visit today, we recorded the following information about you: Abida Khan MA 07/23/2024 4:51 PM Signed TRANSITION CARE MANAGEMENT (TCM) INITIAL CONTACT Lab Courier Outreach Provider Action/FYI: Pt wrote into the office via [email or web address] regarding recent hospital admission for pneumonia. Sent [...] patient post discharge, spoke to patient, via [email or web address]. Patient identified by name and . TRANSITION CARE MANAGEMENT INITIAL OUTREACH DOCUMENTATION: 07/23/2024 Date of Outreach: Outreach Attempt 1: Contact Made Date of Discharge 07/22/2024 SUMMARY: -Pt discharged from [facility] on 07/22/24. -Admitted for: Discharge Diagnosis (1) [...] Mucinex and levofloxacin. Advised follow-up he is cnp Dr. Millie Sánchez in 2 weeks. 2. [...] Lasix 20 mg (more content not included)... [facility] 07-22-2024 Note [facility] Medical Records Department [address] [place] [address] Discharge Summary 07/22/24 0948 MR#: [id number] Acct: [id number] Name: KARLI DUKE Rep #: [id number] : 1965 58 From: Colton Gandhi MD PCP: Dr. Alberto Avelar MD Status:[id number] Prov[facility] Date of Admission: 07/20/24 Date of [...] Mucinex and levofloxacin. Advised follow-up he is cnp Dr. Millie Sánchez in 2 weeks. 2. 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 His presented ED is next [...] 91.9 H, Lymph % (Auto) 4.9 L, [place] % (Auto) 2.6, Eos % (Auto) 0.0, [...] CTA chest examination, (more content not included)... [facility] 07-02-2024 Telephone encounter Note Pt should have appt to discuss need for mobility chair. Notified of this via [employer]. Renee Perez MA [facility] 07-02-2024 Miscellaneous Notes Pt should have appt to discuss need for mobility chair. Notified of this via [employer]. Renee Perez MA documented in this encounter [facility] 06-21-2024 Telephone encounter Note Called patient. C/o increased chest congestion and tightness with cough. Able to produce dark green sputum- difficulty catching breath after coughing. Occasional wheezing. He has these sx frequently, but he reports they often resolve after 1-2 days. He has noticed the increase in sx for the last 4 days. Denies fever, chills, myalgias, headaches. [facility] is preferred. THOMAS 02/29/24 Yulisa Keith LPN [facility] 06-21-2024 Miscellaneous Notes Called patient. C/o increased chest congestion and tightness with cough. Able to produce dark green sputum- difficulty catching breath after coughing. Occasional wheezing. He has these sx frequently, but he reports they often resolve after 1-2 days. He has noticed the increase in sx for the last 4 days. Denies fever, chills, myalgias, headaches. [facility] is preferred. [facility] 02/29/24 Yulisa Keith LPN documented in this encounter [facility] 06-21-2024 Telephone encounter Note Please see melanie message. [facility] 06-21-2024 Miscellaneous Notes Please see melanie message. documented in this encounter [facility] 06-18-2024 History of Presen t illness Narrative Telemedicine Visit - Distance Health Virtual Visit Note Patient seen on [employer]ACT[employer] Video Visit platform. Location of patient: [place] I have communicated my name and active licensure. The patient's identity and physical location were verified at the time of this visit. Either the patient or their legal traveling representative has been informed of the risks [...] the building. He likes going to the [facility] building as they have closer parking, [...] PFRMD 04/10/2019 Colonoscopy OTHER ANEURYSM REPAIR 01/04/2017 [facility] PAST SURGICAL HISTORY OF cyst on [...] 1 tablet by mouth daily at bedtime. nlcfcezmltk-kotuhaeoy-lcoooyah (TRELEGY ELLIPTA) 200-62.5-25 mcg inhalation powder Inhale [...] Gurmeet Tao APRN.CNP documented in this encounter [facility] 06-18-2024 Note HNO ID: [id number] Author: GURMEET TAO APRN.CNP Service: ? Author Type: Nurse Practitioner Type: Progress Notes Filed: 06/18/2024 13:44 Note Text: Telemedicine Visit - Distance Health Virtual Visit Note Patient seen on RACTIV Video Visit platform. Location of patient: [place] I have communicated my name and active licensure. The patient's identity and physical location were verified at the time of this visit. Either the patient or their legal traveling representative has been informed of the risks [...] the building. He likes going to the [facility] building as they have closer parking, [...] PFRMD 04/10/2019 Colonoscopy OTHER ANEURYSM REPAIR 01/04/2017 [facility] PAST SURGICAL HISTORY OF cyst on [...] 1 tablet by mouth daily at bedtime. dmhmvumddtw-zqjrubbsk-ynbkwxbm (TRELEGY ELLIPTA) 200-62.5-25 mcg inhalation powder Inhale [...] to be seen yearly. Gurmeet Tao APRN.CNP [facility] 06-17-2024 Telephone encounter Note Please let the patient know that I sent in. The following approved medication requests have been transmitted electronically. Requested Prescriptions Pending Prescriptions Disp Refills busPIRone (BUSPAR) 10 mg tablet 90 tablet 0 Sig: Take 1 tablet by mouth three times a day. Gurmeet Tao APRN.CNP [facility] 06-17-2024 Miscellaneous Notes Please let the [...] his [facility],. .rxrefill documented in this encounter [facility] 06-17-2024 Telephone encounter Note Patient is overdue for an appointment. Call to patient, scheduled him for 06/18/2024. Patient is needing called in today if possible. Please review and advise. [facility] 06-17-2024 Telephone encounter Note Patient is calling to check on the Buspirone refill as he has been out since last . He stated it first went to Pulmonary instead of Dr. Ascencio. He is asking for this to please be expedited today to his [facility],. [facility] 06-17-2024 Telephone encounter Note Request sent to PCP Yulisa Keith LPN [facility] 06-17-2024 Miscellaneous Notes Request sent to PCP Yulisa Keith LPN documented in this encounter [facility] 06-17-2024 Telephone encounter Note .rxrefill [facility] 05-27-2024 Telephone encounter Note Spoke with patient and the following results were discussed: CT Chest Results slight increase in JANNET nodule previously 3 mm, now 5 mm Reviewed case with Dr. Ayala Recommendations: 6 month follow up Patient verbalized understanding of the results and had no other questions or concerns at this time. Nathalie Mojica APRN.CNP May 27, 2024 2:27 PM [facility] 05-27-2024 Miscellaneous Notes Spoke with patient [...] 2024 2:27 PM documented in this encounter [facility] 05-21-2024 Instructions Nathalie Mojica APRN.CNP - [...] small number of people the nodule may bar turner to be an early cancer. Your doctor [...] cancer? Fewer than 5% of all nodules bar turner to be cancer What if my nodule [...] THAT IS WRONG. documented in this encounter [facility] 05-20-2024 Note HNO ID: [id number] Author: NATHALIE MOJICA APRN.STACY Service: ? Author Type: Nurse Practitioner Type: Progress Notes Filed: 05/21/2024 08:26 Note Text: [facility] INCIDENTAL LUNG NODULE PROGRAM (Follow Up) Impression [...] classification (HCC) Continue close follow up with cnp Dr. Silva Sánchez. Follow Up Follow Up Diagnosis: Lung Nodule Recommendation: CT Scan Follow up Date: 10/31/2024 Follow-Up Scheduled: No Pulmonary Follow-Up Type: Lung Nodule Surveillance Enrolled in Lung Nodule program: Yes Lung Nodule Program Location: [facility] Please enter a follow up date: 10/2024 [...] 73.9 kg (163 lb)] Modified Medical Research [place] Dyspnea Scale (MMRC) I am too breathless [...] DATE OF EXAM: Apr 24 2023 12:10PM [facility] 0541 - CT CHEST WO IVCON [...] assessment. No monica (more content not included)... [facility] 05-20-2024 History of Presen t illness Narrative Images from the original note were not included. [facility] INCIDENTAL LUNG NODULE PROGRAM (Follow Up) Impression [...] classification (HCC) Continue close follow up with cnp Dr. Silva Sánchez. Follow Up Follow Up Diagnosis: Lung Nodule Recommendation: CT Scan Follow up Date: 10/31/2024 Follow-Up Scheduled: No Pulmonary Follow-Up Type: Lung Nodule Surveillance Enrolled in Lung Nodule program: Yes Lung Nodule Program Location: [facility] Please enter a follow up date: 10/2024 [...] 73.9 kg (163 lb)] Modified Medical Research [place] Dyspnea Scale (MMRC) I am too breathless [...] DATE OF EXAM: Apr 24 2023 12:10PM [facility] 0541 - CT CHEST WO IVCON [...] Hepatic steatosis. Atherosclerotic calcification of the vasculature. Site Identification Specialist (topogram) images: No additional findings. Latest Ref Rng & Units 03/31/2021 03/04/2022 08/29/2023 Spirometry Data FVC PRE (L) L 2.60 2.59 2.21 FEV1 PRE (L) L 0.76 0.69 0.57 FEV1/FVC PRE (%) % 29 27 26 RXM88-52% PRE (L/S) L/S 0.19 0.19 0.16 PEF [...] 2024 11:39 AM documented in this encounter [facility] 05-20-2024 History of Presen t illness [...] PATIENT PRESENTS WITH AN IMPLANTABLE OR ATTACHED SPANISH INTERPRETER/TRANSLATOR: No RADIOLOGY DEPARTMENT: CT; Exam(s) Completed: Chest PERIPHERAL IV DATA: Not applicable SIGNED BY: KARL Barton) May 20, 2024 11:39 AM documented in this encounter [facility] 05-20-2024 Note HNO ID: [id number] Author: RENEE ENNIS RT(R) Service: ? Author Type: Hammer Operator Type: Progress Notes Filed: 05/20/2024 11:39 Note [...] PATIENT PRESENTS WITH AN IMPLANTABLE OR ATTACHED SPANISH INTERPRETER/TRANSLATOR: No RADIOLOGY DEPARTMENT: CT; Exam(s) Completed: Chest PERIPHERAL IV DATA: Not applicable SIGNED BY: RT Oralia(R) May 20, 2024 11:39 AM [facility] 05-15-2024 Telephone encounter Note Patient phones requesting refills as follows: THOMAS: 02/29/24 Requested Prescriptions Pending Prescriptions Disp Refills montelukast (SINGULAIR) 10 mg tablet 90 tablet 3 Sig: Take 1 tablet by mouth daily at bedtime. Please review and advise. Yulisa Keith LPN [facility] 05-15-2024 Miscellaneous Notes Patient phones requesting refills as follows: THOMAS: 02/29/24 Requested Prescriptions Pending Prescriptions Disp Refills montelukast (SINGULAIR) 10 mg tablet 90 tablet 3 Sig: Take 1 tablet by mouth daily at bedtime. Please review and advise. Yulisa Keith LPN documented in this encounter [facility] 04-10-2024 Telephone encounter Note Prescription Refill [...] Buchanan LPN April 10, 2024 12:27 PM [facility] 04-10-2024 Miscellaneous Notes Prescription Refill Information [...] 2024 12:27 PM documented in this encounter [facility] 02-29-2024 History of Presen t illness Narrative Images from the original note were not included. . [facility] [place] Note Patient name: Karli Duke PCP: Alberto [...] DATE OF EXAM: Apr 24 2023 12:10PM [facility] 0541 - CT CHEST WO IVCON [...] date: COPD (chronic obstructive pulmonary disease) ([facility]LY [facility]) No date: Other and unspecified hyperlipidemia No date: SAH (subarachnoid hemorrhage) (FORMERLY [facility]) No date: Sleep apnea No date: Tobacco abuse Comment: Quit 2015. ALLERGIES Allergen Reactions Codeine Unknown Environmental [Othe* Other: See Comments Molds and grasses as verified by skin testing Vicodin [Hydrocodon* Mental Status Change japkpvmbhcr-odggbkpme-qgevqxdw (TRELEGY ELLIPTA) 200-62.5-25 mcg inhalation powder Inhale [...] opacity -Continued abstinence Millie Sánchez MD [facility] [place] documented in this encounter [facility] 02-29-2024 Note HNO ID: [id number] Author: MILLIE SÁNCHEZ MD Service: ? Author Type: Physician Type: Progress Notes Filed: 02/29/2024 17:09 Note Text: . [facility] [place] Note Patient name: Karli Duke PCP: Alberto [...] DATE OF EXAM: Apr 24 2023 12:10PM [facility] 0541 - CT CHEST WO IVCON [...] date: COPD (chronic obstructive pulmonary disease) (FORM[facility]LY [facility]) No date: Other and unspecified hyperlipidemia No date: SAH (subarachnoid hemorrhage) ([facility]) No date: Sleep apnea No date: Tobacco abuse Comment: Quit 2015. ALLERGIES Allergen Reactions Codeine Unknown Environmental [Othe* Other: See Comments Molds and grasses as verified by skin testing Vicodin [Hydrocodon* Mental Status Change nzmiexkgujy-kdzuyswez-eyhxxuel (TRELEGY ELLIPTA) 200-62.5-25 mcg inhalation powder Inhale [...] problems, peripheral wea (more content not included)... [facility] 02-29-2024 Note HNO ID: [id number] Author: PAUL MARTINEZ RPFT Service: ? Author [...] February 29, 2024 TIME: 1:34 PM Comment: [facility] 02-29-2024 Procedure note Associated Ord er(s): [...] 1:34 PM Comment: documented in this encounter [facility] 02-29-2024 Note HNO ID: [id number] Author: PAUL MARTINEZ RPFT Service: ? Author Type: Respiratory Therapist Type: Progress Notes Filed: 02/29/2024 13:35 Note Text: PULM FUNCTION: Provider: Helen Newman PA-C Assisting Tech: Petush, Paul, RPFT Oximetry - Ambulation: 1 [facility] 02-29-2024 History of Presen t illness Narrative PULM FUNCTION: Provider: Helen Newman PA-C Assisting Tech: Petush, Paul, RPFT Oximetry - Ambulation: 1 documented in this encounter [facility] 02-29-2024 Nurse Note Intake information documented in the prior visit with ERICH Bassett today. [facility] 02-29-2024 Nurse Note Intake information documented in the prior visit with ERICH Bassett today. documented in this encounter [facility] 01-29-2024 Telephone encounter Note Patient phones requesting refills as follows: THOMAS 08/29/23 Requested Prescriptions Pending Prescriptions Disp Refills fluticasone axevdkm-suktchguutyx-vosrtsutip (TRELEGY ELLIPTA) 200-62.5-25 mcg powder inhaler 180 Each 3 Sig: Inhale 1 Puff as instructed once daily. Please review and advise. Yulisa Keith LPN [facility] 01-29-2024 Miscellaneous Notes Patient phones requesting refills as follows: THOMAS 08/29/23 Requested Prescriptions Pending Prescriptions Disp Refills fluticasone xvetkhd-lyxqryboaxsb-rocxzptqcs (TRELEGY ELLIPTA) 200-62.5-25 mcg powder inhaler 180 Each 3 Sig: Inhale 1 Puff as instructed once daily. Please review and advise. Yulisa Keith LPN documented in this encounter [facility] 12-04-2023 Telephone encounter Note Pharmacy escripts requesting the following refill: Requested Prescriptions Pending Prescriptions Disp Refills pantoprazole DR (PROTONIX) 40 mg tablet [Pharmacy Med Name: PANTOPRAZOLE SOD DR 40 MG TAB] 90 tablet 3 Sig: take 1 tablet by mouth every day Please review and advise. SRIKANTH Lujan THOMAS: 08/29/23 (Helen Newman) Future OV: no ov scheduled pfts ordered for 02/29/24 [facility] 12-04-2023 Miscellaneous Notes Pharmacy escripts requesting [...] ordered for 02/29/24 documented in this encounter [facility] 08-29-2023 History of Presen t illness [...] Asthma COPD (chronic obstructive pulmonary disease) ([facility]) Other and unspecified hyperlipidemia SAH (subarachnoid hemorrhage) ([facility]) Sleep apnea Tobacco abuse Quit 2015. Allergies: [...] melatonin 1 mg tablet Take by mouth. jdixgdpjvlw-fjzwdsdax-myroqdvw (TRELEGY ELLIPTA) 200-62.5-25 mcg inhalation powder Inhale [...] PFRMD 04/10/2019 Colonoscopy OTHER ANEURYSM REPAIR 01/04/2017 [facility] PAST SURGICAL HISTORY OF cyst on [...] Helen Newman PA-C documented in this encounter [facility] 08-29-2023 History of Presen t illness Narrative PULM FUNCTION SMARTBLOCK: Provider: Helen Newman PA-C Assisting Tech: Paul Martinez RPFT Spirometry: 1 DLCO: 1 LV - Box: 1 documented in this encounter [facility] 08-29-2023 Nurse Note Intake information documented in the prior visit with ERICH Bassett today. documented in this encounter [facility] 06-15-2023 Miscellaneous Notes Paperwork placed on [employer] desk Helen Lee MA documented in this encounter [facility] 06-14-2023 History of Presen t illness [...] Asthma COPD (chronic obstructive pulmonary disease) ([facility]) Other and unspecified hyperlipidemia SAH (subarachnoid hemorrhage) ([facility]) Sleep apnea Tobacco abuse Quit 2015. Allergies: [...] melatonin 1 mg tablet Take by mouth. vxtlqflifck-bcysnhgbd-mpdrvpai (TRELEGY ELLIPTA) 200-62.5-25 mcg inhalation powder Inhale [...] PFRMD 04/10/2019 Colonoscopy OTHER ANEURYSM REPAIR 01/04/2017 [facility] PAST SURGICAL HISTORY OF cyst on [...] Helen Newman PA-C documented in this encounter [facility] 05-01-2023 Miscellaneous Notes Pt notified of results and recommendations. Plan for [address] Pt agrees. Left message for pt to call back regarding results. New <6 mm nodules and new 1.5 cm ground glass nodule. Case reviewed with Dr. Salvador. Recommendation [address] documented in this encounter [facility] 05-01-2023 Miscellaneous Notes Detailed message left [...] unable to work. Daria Steinberg phone is [phone] ext [phone] Helen Lee MA documented in this encounter [facility] 04-27-2023 Miscellaneous Notes Letter with last office visit notes faxed as requested. Rosalina Christianson MA Disability forms provided to Helen Newman PA-C to complete. Renee Andrade LPN Phone number not working. Will look at disablity forms to possibly find another contact #. Rosalina Christianson MA Cherry called with questions about patients short term disability. Please call Cherry [phone] ext [phone] documented in this encounter [facility] 04-27-2023 Miscellaneous Notes Reviewed paperwork with Dr. Sánchez. Unsure what date patient is referring to. I called patient and he provided me with the following number for [employer]. [phone] ext [phone]. Left a message that we are looking for clarification. Betty documented in this encounter [facility] 04-24-2023 History of Presen t illness [...] 2023 2:40 PM documented in this encounter [facility] 04-18-2023 Miscellaneous Notes The following approved [...] by mouth everyday at bedtime Gurmeet Tao APRN.MANGLE PRESS CATCHER Last refills 04/25/22 Qty: x 1 year THOMAS 12/01/22 NOV none scheduled Eran Schmidt LPN documented in this encounter [facility] 03-17-2023 Miscellaneous Notes 3rd call attempt, left vm 2nd call attempt, left vm 1st attempt left message to return call to schedule consult for Lung Cancer Screening documented in this encounter [facility] 03-14-2023 Instructions Millie Sánchez MD - 03/14/2023 3:22 PM EDT Recommend shelter disability documented in this encounter [facility] 03-14-2023 History of Presen t illness Narrative Images from the original note were not included. . [facility] [place] Note Patient name: Karli Duke PCP: Alberto [...] oxygen. 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 He [...] poor air quality days related to the [email or web address]. In fact, he had to take a [...] Asthma COPD (chronic obstructive pulmonary disease) ([facility]) Other and unspecified hyperlipidemia SAH (subarachnoid hemorrhage) ([facility]) Sleep apnea Tobacco abuse Quit 2015. ALLERGIES Allergen Reactions Codeine Unknown Environmental [Othe* Other: See Comments Molds and grasses as verified by skin testing Vicodin [Hydrocodon* Mental Status Change ckaxtlmhhjw-rctbfbxqp-tlwzlbuj (TRELEGY ELLIPTA) 200-62.5-25 mcg inhalation powder Inhale [...] PFRMD 04/10/2019 Colonoscopy OTHER ANEURYSM REPAIR 01/04/2017 [facility] PAST SURGICAL HISTORY OF cyst on [...] from supplemental oxygen Millie Sánchez MD [facility] [place] documented in this encounter [facility] 01-17-2023 Miscellaneous Notes Faxed. Yulisa Keith LPN Suri oRman needs a copy of the last office notes for this patient's supplies, please. You can fax them to [phone]. Thank you! Bree Estrella RN documented in this encounter [facility] 01-13-2023 Miscellaneous Notes Patient phones requesting refills as follows: Requested Prescriptions Pending Prescriptions Disp Refills fluticasone birqnec-kiwpzbawcpmz-vxelrywiwo (TRELEGY ELLIPTA) 200-62.5-25 mcg powder inhaler 180 Each 3 Sig: Inhale 1 Puff as instructed once daily. Please review and advise. Yulisa Keith LPN documented in this encounter [facility] 12-05-2022 Miscellaneous Notes THOMAS 11/14/2022 note reviewed NOV 01/11/2023 Rx approved documented in this encounter [facility] 12-01-2022 History of Presen t illness Narrative Chief Complaint Patient presents with: Discussion: For Lift Chair HPI Karli Duke is a 57 year old male who presents here today for lift chair eval. Pt has not been seen since May 2020. Will check with [facility]. He has a paper from [employer] to put him on High Priority list. He was advised to see if his Digital Sales Executive will complete it due to his breathing [...] PFRMD 04/10/2019 Colonoscopy OTHER ANEURYSM REPAIR 01/04/2017 [facility] PAST SURGICAL HISTORY OF cyst on [...] on File Prior to Visit Medication Sig ghedsbzoavf-efrvdyjqk-zkqbptfu (TRELEGY ELLIPTA) 200-62.5-25 mcg inhalation powder Inhale [...] Past Histories independently gathered by the clinical product support engineer and the remaining scribed note accurately describes [...] Renee Perez Ma documented in this encounter [facility] 11-14-2022 History of Presen t illness [...] bronchodilator use. 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 Wearing 2L supplemental oxygen. Did not tolerate BiPAP. DME: Lilli. PAST MEDICAL HISTORY Diagnosis Date Allergic rhinitis Asthma COPD (chronic obstructive pulmonary disease) ([facility]) Other and unspecified hyperlipidemia SAH (subarachnoid hemorrhage) ([facility]) Sleep apnea Tobacco abuse Quit 2015. Allergies: [...] PFRMD 04/10/2019 Colonoscopy OTHER ANEURYSM REPAIR 01/04/2017 [facility] PAST SURGICAL HISTORY OF cyst on [...] Component Latest Ref Rng & Units 03/11/2022 [place] IgE <0.35 kU/l <0.35 [place] Class Class 0 Class 0 [id number] [place] Grass <0.35 kU/l <0.35 Anthony Grass [...] very severe COPD by GOLD classification ([facility]) - ICD9: 496, ICD10: J44.9 (primary diagnosis) [...] Helen Newman PA-C documented in this encounter [facility] 11-04-2022 Miscellaneous Notes Please schedule patient for a follow-up appointment. betty documented in this encounter [facility] 05-21-2022 History of Presen t illness [...] PFRMD 04/10/2019 Colonoscopy OTHER ANEURYSM REPAIR 01/04/2017 [facility] PAST SURGICAL HISTORY OF cyst on [...] Nigel Taveras APRN.CNP documented in this encounter [facility] 04-25-2022 Miscellaneous Notes Your prescription has [...] Oralia Buchanan LPN documented in this encounter [facility] 03-16-2022 History of Presen t illness [...] 2022 1:59 PM documented in this encounter [facility] 03-14-2022 Miscellaneous Notes Duplicate request. Yulisa Keith LPN documented in this encounter [facility] 03-04-2022 History of Presen t illness Narrative Images from the original note were not included. . [facility] [place] Note Patient name: Karli Duke PCP: Alberto Avelar MD CC: SOB HPI: Karli L White 56 year old male former [id number] smoker having quit in 2016 with PMH [...] CM Imaging / Diagnostic Studies: CTA chest [facility] 08/2019: I personally reviewed the images which show some upper lobe emphysema, RLL atelectasis, hyperinflation PAST MEDICAL HISTORY Diagnosis Date Allergic rhinitis Asthma COPD (chronic obstructive pulmonary disease) ([facility]) Other and unspecified hyperlipidemia SAH (subarachnoid hemorrhage) ([facility]) Sleep apnea Tobacco abuse Quit 2015. 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 Pets: dog, cat FAMILY HISTORY Problem Relation Age of Onset Diabetes Mother None Father other (overdose) Sister Allergies Daughter COPD No Family History Asthma No Family History PAST SURGICAL HISTORY Procedure Laterality Date COLONOSCOPY FLX DX W/COLLJ SPEC WHEN PFRMD 04/10/2019 Colonoscopy OTHER ANEURYSM REPAIR 01/04/2017 [facility] PAST SURGICAL HISTORY OF cyst on [...] and dog allergy Millie Sánchez MD [facility] [place] documented in this encounter [facility] 03-04-2022 History of Presen t illness Narrative PULM FUNCTION SMARTBLOCK: Provider: Millie Sánchez MD Assisting Tech: ERICH Bassett Spirometry: 1 DLCO: 1 documented in this encounter [facility] 03-04-2022 Nurse Note Intake information documented in the prior visit with ERICH Bassett today. documented in this encounter [facility] 02-25-2022 History of Presen t illness Narrative Nocturnal Oximetry, BiPAP with 2 L, 02/22/2022. Recording interval: 5:5:46 High pulse: 88 Low pulse: 56 Highest spO2: 99% Lowest spO2: 86% Time with spO2 < 88%: 0.8 minutes Recommendation: Based on above results, current therapy is adequate. I have received and reviewed the outside records noted above. Helen Newman PA-C [facility] [place] documented in this encounter [facility] 02-03-2022 History of Presen t illness Narrative Images from the original note were not included. [facility] Follow up/ Established [...] : Pt consents to virtual visit via [employer]. Here for follow up for mgmt of [...] or near accidents due to drowsy drivin [place] Sleepiness Scale 12/26/2021 02/02/2022 Score 8 (No [...] has appt with Pulmonology ib 03/04/22. - [facility]: Submit download report. Alvaor Dorman APRN.STACY I spent a total of 25 minutes on the date of the service which included preparing to see the patient, draq-gp-fggt patient care, completing clinical documentation, counseling and educating the patient/family/caregiver and ordering medications, tests, or procedures. documented in this encounter [facility] 01-06-2022 Miscellaneous Notes Received RX form for CPAP supplies by fax from [facility] for the provider's signature. Faxed signed form to [facility] fax# [phone]. # [phone] documented in this encounter [facility] 12-30-2021 History of Presen t illness [...] as determined by overnight PSG performed at [facility] on 07/26/2019 with AHI of 32.4. No other significant findings were reported at the time of that study and per review of the report. Patient reports he is now on CPAP, and states it hurts his chest when he has it on. Note a PAP titration was performed 10/2021 at [facility] and recommended Auto bilevel PAP. Set at [...] off work at 11PM and home around [place]). No RLS symptoms. Wakes to start the [...] PHQ-9 Score - - 3 (None-Minimal Depression) [place] Sleepiness Scale 03/08/2016 09/22/2017 12/26/2021 Score - [...] Asthma COPD (chronic obstructive pulmonary disease) ([facility]) Other and unspecified hyperlipidemia SAH (subarachnoid hemorrhage) ([facility]) Sleep apnea Tobacco abuse Quit 2015. FAMILY [...] which included preparing to see the patient, epeq-jy-veci patient care, completing clinical documentation, obtaining and/or reviewing separately obtained history, performing a medically appropriate examination, counseling and educating the patient/family/caregiver, ordering medications, tests, or procedures, independently interpreting results (not separately reported) and communicating results to the patient/family/caregiver. documented in this encounter [facility] 12-17-2021 Miscellaneous Notes Received completed paperwork from provider. aidee faxed back to [facility] at [phone]. Also faxed to [place] office. documented in this encounter [facility] 11-25-2021 History of Presen t illness [...] Dr. Shaun Hernandez documented in this encounter [facility] 11-25-2021 Miscellaneous Notes Referral placed to Dr. Hernandez to manage GHASSAN and BiPAP. Betty documented in this encounter [facility] Evaluation note Diagnosis GHASSAN (obstructive sleep apnea)- Primary Obstructive sleep apnea (adult) (pediatric) [facility] Diagnosis GHASSAN (obstructive sleep apnea) Obstructive sleep apnea (adult) (pediatric) GHASSAN on CPAP Obstructive sleep apnea (adult) (pediatric) [facility] Diagnosis Obstructive sleep apnea- Primary Obstructive sleep apnea (adult) (pediatric) [facility] Diagnosis Stage 3 severe COPD by GOLD classification (HCC) [facility] Diagnosis Stage 3 severe COPD by GOLD classification (HCC) [facility] Diagnosis Stage 4 very severe COPD by GOLD classification (HCC)- Primary 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 Former cigarette smoker Personal history of tobacco use, presenting hazards to health History of seasonal allergies Other allergy, other than to medicinal agents [facility] Diagnosis Pulmonary emphysema, unspecified emphysema type (HCC) [facility]* Diagnosis Pulmonary emphysema, unspecified emphysema type (HCC) [facility]* Diagnosis Stage 4 very severe COPD by 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 [facility]* Diagnosis Post-nasal drip Postnasal drip [facility]* Diagnosis COPD with exacerbation (HCC)- Primary Obstructive chronic bronchitis with exacerbation [facility]* Diagnosis Stage 4 very severe COPD by GOLD classification (HCC)- Primary Asthma-COPD overlap syndrome (HCC) History of seasonal allergies Other allergy, other than to medicinal agents Former cigarette smoker Personal history of tobacco use, presenting hazards to health GHASSAN (obstructive sleep apnea) Obstructive sleep apnea (adult) (pediatric) Dependence on nocturnal oxygen therapy [facility]* Diagnosis Pulmonary emphysema, unspecified emphysema type (HCC)- Primary Stage 4 very severe COPD by GOLD classification (HCC) documented in this encounter [facility] note* Diagnosis Stage 4 very severe COPD by 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) documented in this encounter [facility] note* Diagnosis Stage 4 very severe COPD by GOLD classification (HCC)- Primary documented in this encounter [facility] note* Diagnosis Former cigarette smoker- Primary Personal history of tobacco use, presenting hazards to health documented in this encounter [facility] note* Diagnosis Stage 4 very severe COPD by GOLD classification (HCC)- Primary Chronic hypoxemic respiratory failure (HCC) Chronic respiratory failure documented in this encounter [facility] note* Diagnosis Post-nasal drip Postnasal drip documented [facility] encounter [facility]* Diagnosis Lung nodules- Primary Other nonspecific abnormal finding of lung field documented [facility] encounter [facility]* Diagnosis Lung nodules Other nonspecific abnormal finding of lung field Pulmonary emphysema, unspecified emphysema type (HCC) documented in this encounter [facility] note* Diagnosis Stage 4 very severe COPD by GOLD classification (HCC)- Primary Former cigarette smoker Personal history of tobacco use, presenting hazards to health Chronic hypoxemic respiratory failure (HCC) Chronic respiratory failure Lung nodules Other nonspecific abnormal finding of lung field documented [facility] encounter [facility]* Diagnosis Stage 4 very severe COPD by GOLD classification (HCC) documented in this encounter [facility] note* Diagnosis Stage 4 very severe COPD by GOLD classification (HCC) documented in this encounter [facility] note* Diagnosis Stage 4 very severe COPD by GOLD classification (HCC)- Primary Former cigarette smoker Personal history of tobacco use, presenting hazards to health Chronic hypoxemic respiratory failure (HCC) Chronic respiratory failure Chronic sinusitis, unspecified location GHASSAN (obstructive sleep apnea) Obstructive sleep apnea (adult) (pediatric) documented [facility] encounter [facility]* Diagnosis Stage 4 very severe COPD by 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) documented in this encounter [facility] note* Diagnosis Stage 4 very severe COPD by 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) documented in this encounter [facility] note* Diagnosis Pre-operative examination- Primary Preoperative [...] Chronic respiratory failure documented in this encounter [facility] note* Diagnosis Pre-operative examination- Primary Preoperative [...] hazards to health documented in this encounter [facility] note* Diagnosis Pre-operative examination- Primary Preoperative examination, unspecified Screening for colon cancer Special screening for malignant neoplasms, colon Brain aneurysm Cerebral aneurysm, nonruptured Uncomplicated asthma, unspecified asthma severity, unspecified whether persistent Pulmonary emphysema, unspecified emphysema type (HCC) Tinea corporis Dermatophytosis of the body Post-nasal drip Postnasal drip documented in this encounter [facility] note* Diagnosis Pre-operative examination- Primary Preoperative examination, unspecified Screening for colon cancer Special screening for malignant neoplasms, colon Brain aneurysm Cerebral aneurysm, nonruptured Uncomplicated asthma, unspecified asthma severity, unspecified whether persistent Pulmonary emphysema, unspecified emphysema type (HCC) Tinea corporis Dermatophytosis of the body Post-nasal drip Postnasal drip documented in this encounter [facility] note* Diagnosis Pre-operative examination- Primary Preoperative examination, unspecified Screening for colon cancer Special screening for malignant neoplasms, colon Brain aneurysm Cerebral aneurysm, nonruptured Uncomplicated asthma, unspecified asthma severity, unspecified whether persistent Pulmonary emphysema, unspecified emphysema type (HCC) Tinea corporis Dermatophytosis of the body Asthma-COPD overlap syndrome (HCC)- Primary Post-nasal drip Postnasal drip documented [facility]* Diagnosis Pre-operative examination- Primary Preoperative examination, unspecified Screening for colon cancer Special screening for malignant neoplasms, colon Brain aneurysm Cerebral aneurysm, nonruptured Uncomplicated asthma, unspecified asthma severity, unspecified whether persistent Pulmonary emphysema, unspecified emphysema type (HCC) Tinea corporis Dermatophytosis of the body Lung nodules Other nonspecific abnormal finding of lung field documented in this encounter [facility] note* Diagnosis Pre-operative examination- Primary Preoperative [...] history of tobacco use, presenting hazards to [facility] Stage 4 very severe COPD by GOLD classification ([facility]) documented in this encounter [facility] note* Diagnosis Pre-operative examination- Primary Preoperative examination, unspecified Screening for colon cancer Special screening for malignant neoplasms, colon Brain aneurysm Cerebral aneurysm, nonruptured Uncomplicated asthma, unspecified asthma severity, unspecified whether persistent Pulmonary emphysema, unspecified emphysema type (HCC) Tinea corporis Dermatophytosis of the body Lung nodules- Primary Other nonspecific abnormal finding of lung field documented in this encounter [facility] note* Diagnosis Pre-operative examination- Primary Preoperative examination, unspecified Screening for colon cancer Special screening for malignant neoplasms, colon Brain aneurysm Cerebral aneurysm, nonruptured Uncomplicated asthma, unspecified asthma severity, unspecified whether persistent Pulmonary emphysema, unspecified emphysema type (HCC) Tinea corporis Dermatophytosis of the body Anxiousness- Primary Anxiety state, unspecified Stage 4 very severe COPD by GOLD classification ([facility]) Screening for prostate cancer Special screening for malignant neoplasm of prostate Screening for lipid disorders Screening for diabetes mellitus documented in this encounter [facility] note* Diagnosis Pre-operative examination- Primary Preoperative examination, unspecified Screening for colon cancer Special screening for malignant neoplasms, colon Brain aneurysm Cerebral aneurysm, nonruptured Uncomplicated asthma, unspecified asthma severity, unspecified whether persistent Pulmonary emphysema, unspecified emphysema type (HCC) Tinea corporis Dermatophytosis of the body COPD with exacerbation (HCC)- Primary Obstructive chronic bronchitis with exacerbation documented in this encounter [facility] note* Diagnosis Pre-operative examination- Primary Preoperative examination, unspecified Screening for colon cancer Special screening for malignant neoplasms, colon Brain aneurysm Cerebral aneurysm, nonruptured Uncomplicated asthma, unspecified asthma severity, unspecified whether persistent Pulmonary emphysema, unspecified emphysema type (HCC) Tinea corporis Dermatophytosis of the body Pneumonia of both lower lobes due to infectious organism documented in this encounter [facility] note* Diagnosis Pre-operative examination- Primary Preoperative [...] to infectious organism documented in this encounter [facility] note* Diagnosis Pre-operative examination- Primary Preoperative [...] mixed Mixed hyperlipidemia documented in this encounter [facility] note* Diagnosis Pre-operative examination- Primary Preoperative [...] Sleep disturbance, unspecified documented in this encounter [facility] note* Diagnosis Pre-operative examination- Primary Preoperative [...] Other abnormal glucose documented in this encounter [facility] note* Diagnosis Pre-operative examination- Primary Preoperative [...] Other abnormal glucose documented in this encounter [facility] note* Diagnosis Pre-operative examination- Primary Preoperative [...] very severe COPD by GOLD classification ([facility]) documented in this encounter [facility] note* Diagnosis Pre-operative examination- Primary Preoperative [...] history of tobacco use, presenting hazards to [facility] Stage 4 very severe COPD by GOLD classification ([facility]) documented in this encounter [facility] note* Diagnosis Pre-operative examination- Primary Preoperative examination, unspecified Screening for colon cancer Special screening for malignant neoplasms, colon Brain aneurysm (HCC) Cerebral aneurysm, nonruptured Uncomplicated asthma, unspecified asthma severity, unspecified whether persistent (HCC) Pulmonary emphysema, unspecified emphysema type (HCC) Tinea corporis Dermatophytosis of the body Lung nodules Other nonspecific abnormal finding of lung field documented in this encounter [facility] note* Diagnosis Pre-operative examination- Primary Preoperative examination, unspecified Screening for colon cancer Special screening for malignant neoplasms, colon Brain aneurysm (HCC) Cerebral aneurysm, nonruptured Uncomplicated asthma, unspecified asthma severity, unspecified whether persistent (HCC) Pulmonary emphysema, unspecified emphysema type (HCC) Tinea corporis Dermatophytosis of the body Sleeping difficulty Sleep disturbance, unspecified documented in this encounter [facility] note* Diagnosis Pre-operative examination- Primary Preoperative examination, unspecified Screening for colon cancer Special screening for malignant neoplasms, colon Brain aneurysm (HCC) Cerebral aneurysm, nonruptured Uncomplicated asthma, unspecified asthma severity, unspecified whether persistent (HCC) Pulmonary emphysema, unspecified emphysema type (HCC) Tinea corporis Dermatophytosis of the body Stage 4 very severe COPD by 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) documented in this encounter [facility] note* Diagnosis Pre-operative examination- Primary Preoperative examination, unspecified Screening for colon cancer Special screening for malignant neoplasms, colon Brain aneurysm (HCC) Cerebral aneurysm, nonruptured Uncomplicated asthma, unspecified asthma severity, unspecified whether persistent (HCC) Pulmonary emphysema, unspecified emphysema type (HCC) Tinea corporis Dermatophytosis of the body Stage 4 very severe COPD by 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) documented in this encounter [facility] noteNo assessment information availableWBrecksville [facility]: Evaluation note* Diagnosis Pre-operative examination- Primary Preoperative examination, unspecified Screening for colon cancer Special screening for malignant neoplasms, colon Brain aneurysm (HCC) Cerebral aneurysm, nonruptured Uncomplicated asthma, unspecified asthma severity, unspecified whether persistent (HCC) Pulmonary emphysema, unspecified emphysema type (HCC) Tinea corporis Dermatophytosis of the body Hypoxemia Acute respiratory distress Other pulmonary insufficiency, not elsewhere classified documented in this encounter [facility] for referral (narrative)* Outpatient Procedure (Routine) - Authorized Specialty Diagnoses / Procedures Referred By [place] t Referred To [facility] Diagnoses Stage 4 very severe COPD by GOLD classification (HCC) Procedures OXIMETRY WITH AMBULATION NONINVASIVE EAR/PULSE OXIMETRY Helen Fang PA-C [address] [place] [address] Respiratory [place] [address] [place], [place] [id number] Referral ID Status Reason Start Date Expiration Date Visits Requested Visits Authorized [id number] Authorized Auto-Generat ed Referral 11/14/2022 12/14/2023 1 1 [facility] for referral (narrative)* Outpatient Procedure (Routine) - Authorized Specialty Diagnoses / Procedures Referred By Contac t Referred To Contact [facility] Diagnoses Stage 4 very severe COPD by GOLD classification (HCC) Chronic hypoxemic respiratory failure (HCC) Procedures OXIMETRY WITH AMBULATION NONINVASIVE EAR/PULSE OXIMETRY MULTIPLE DETER Helen Newman PA-C [address] [place] [address] Respiratory [place] [address] [place] [address] Referral ID Status Reason Start Date Expiration Date Visits Requested Visits Authorized [id number] Authorized Auto-Generat ed Referral 08/29/2023 09/27/2024 1 1 * Transition of Care (Routine) - Ref Not Required Specialty Diagnoses / Procedures Referred By Contac t Referred To Contact Ent - Otolaryngology Diagnoses Chronic sinusitis, unspecified location Procedures CONSULT TO ENT Helen Newman PA-C [address] [place] [address] David Hammond [address] [place] [address] Referral ID Status Reason Start Date Expiration Date Visits Requested Visits Authorized [id number] Ref Not Required PCP Requested Referral 08/29/2023 08/28/2024 1 1 [facility] for referral (narrative)No reason for referral information availableWBrecks[facility] Work Phone: Advance Directives Documents on File Type Date Recorded Patient Safety Tech Expl anation Advance Directive(s) 12/25/2020 1:09 PM Advance Directive(s) 04/10/2019 10:19 AM Advance Directive(s) 01/05/2016 9:03 PM Documents on File Type Date Recorded Patient Safety Tech Expl anation Advance Directive(s) 12/25/2020 1:09 PM Advance Directive(s) 04/10/2019 10:19 AM Advance Directive(s) 01/05/2016 9:03 PM Advance Directive Response Recorded Date/ Time Do you have a Healthcare Power of Courtroom Reporter? No February 21, 2025 5:14pm Reason for Referral Specialty Diagnoses / Procedures Referred By Contac t Referred To Contact Diagnoses GHASSAN (obstructive sleep apnea) Procedures CONSULT TO SLEEP MEDICINE - ADULT OFFICE/OUTPATIENT [facility] 60-74 MINUTES Helen Newman, PA-C [address] [facility] [address] [place] [address] Shaun Hernandez Jr., MD [address] [facility] [address] [place] [address] Referral ID Status Reason Start Date Expiration Date Visits Requested Visits Authorized [id number] Authorized PCP Requested Referral 11/25/2021 02/23/2022 1 1 Specialty Diagnoses / Procedures Referred By Contac t Referred To Contact CT IMAGING Diagnoses Stage 4 very severe COPD by GOLD classification (HCC) SOB (shortness of breath) 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HCC) Procedures CT CHEST WO IVCON DIAGNOSTIC COMPUTED TOMOGRAPHY THORAX W/O CNTRST Millie Sánchez MD [address] [place] [address] Ct Imaging Referral ID Status Reason Start Date Expiration Date Visits Requested Visits Authorized [id number] Authorized Auto-Generat ed Referral 03/04/2022 07/02/2022 1 1 Referral ID Status Reason Start Date Expiration Date V isits Requested Visits Authorized [id number] Closed Auto-Generate d Referral 03/04/2022 07/02/2022 1 1 Specialty Diagnoses / Procedures Referred By Contac t Referred To Contact CT IMAGING Diagnoses Lung nodules Procedures CT CHEST WO IVCON DIAGNOSTIC COMPUTED TOMOGRAPHY THORAX W/O CNTRSNathalie Armendariz, DIO[employer] [address] [place] [address] Ct Imaging [facility] Referral ID Status Reason Start Date Expiration Date Visits Requested Visits Authorized [id number] Pending Review Auto-Generat ed Referral 3 05/30/2024 1 1 Specialty Diagnoses / Procedures Referred By Contac t Referred To Contact CT IMAGING Diagnoses Lung nodules Pulmonary emphysema, unspecified emphysema type (HCC) Procedures CT CHEST WO IVCON DIAGNOSTIC COMPUTED TOMOGRAPHY THORAX W/O CNTRST Nathalie Mojica, DIO[employer] CATCHER [address] [place] [address] Ct Imaging [facility] Referral ID Status Reason Start Date Expiration Date V isits Requested Visits Authorized [id number] Closed Auto-Generate d Referral 04/11/2023 05/10/2024 1 1 Referral ID Status Reason Start Date Expiration Date Visits Requested Visits Authorized [id number] New Request Auto-Generat ed Referral 4 06/26/2025 [...] or prosecute any alcohol or drug abuse patient.[facility] HospitalIn the event this information is protected by the Federal Confidentiality of Alcohol and Drug Abuse Patient Records regulations: The Federal rules restrict any use of the information to criminally investigate or prosecute any alcohol or drug abuse patient.[facility] HospitalIn the event this information is protected by the Federal Confidentiality of Alcohol and Drug Abuse Patient Records regulations: The Federal rules restrict any use of the information to criminally investigate or prosecute any alcohol or drug abuse patient.[facility] HospitalIn the event this information is protected by the Federal Confidentiality of Alcohol and Drug Abuse Patient Records regulations: The Federal rules restrict any use of the information to criminally investigate or prosecute any alcohol or drug abuse patient.[facility] HospitalIn the event this information is protected by the Federal Confidentiality of Alcohol and Drug Abuse Patient Records regulations: The Federal rules restrict any use of the information to criminally investigate or prosecute any alcohol or drug abuse patient.[facility] HospitalIn the event this information is protected by the Federal Confidentiality of Alcohol and Drug Abuse Patient Records regulations: The Federal rules restrict any use of the information to criminally investigate or prosecute any alcohol or drug abuse patient.[facility] HospitalIn the event this information is protected by the Federal Confidentiality of Alcohol and Drug Abuse Patient Records regulations: The Federal rules restrict any use of the information to criminally investigate or prosecute any alcohol or drug abuse patient.[facility] HospitalIn the event this information is protected by the Federal Confidentiality of Alcohol and Drug Abuse Patient Records regulations: The Federal rules restrict any use of the information to criminally investigate or prosecute any alcohol or drug abuse patient.[facility] HospitalIn the event this information is protected by the Federal Confidentiality of Alcohol and Drug Abuse Patient Records regulations: The Federal rules restrict any use of the information to criminally investigate or prosecute any alcohol or drug abuse patient.[facility] HospitalIn the event this information is protected by the Federal Confidentiality of Alcohol and Drug Abuse Patient Records regulations: The Federal rules restrict any use of the information to criminally investigate or prosecute any alcohol or drug abuse patient.[facility] HospitalIn the event this information is protected by the Federal Confidentiality of Alcohol and Drug Abuse Patient Records regulations: The Federal rules restrict any use of the information to criminally investigate or prosecute any alcohol or drug abuse patient.[facility] HospitalIn the event this information is protected by the Federal Confidentiality of Alcohol and Drug Abuse Patient Records regulations: The Federal rules restrict any use of the information to criminally investigate or prosecute any alcohol or drug abuse patient.[facility] HospitalIn the event this information is protected by the Federal Confidentiality of Alcohol and Drug Abuse Patient Records regulations: The Federal rules restrict any use of the information to criminally investigate or prosecute any alcohol or drug abuse patient.[facility] HospitalIn the event this information is protected by the Federal Confidentiality of Alcohol and Drug Abuse Patient Records regulations: The Federal rules restrict any use of the information to criminally investigate or prosecute any alcohol or drug abuse patient.[facility] HospitalIn the event this information is protected by the Federal Confidentiality of Alcohol and Drug Abuse Patient Records regulations: The Federal rules restrict any use of the information to criminally investigate or prosecute any alcohol or drug abuse patient.[facility] HospitalIn the event this information is protected by the Federal Confidentiality of Alcohol and Drug Abuse Patient Records regulations: The Federal rules restrict any use of the information to criminally investigate or prosecute any alcohol or drug abuse patient.[facility] HospitalIn the event this information is protected by the Federal Confidentiality of Alcohol and Drug Abuse Patient Records regulations: The Federal rules restrict any use of the information to criminally investigate or prosecute any alcohol or drug abuse patient.[facility] HospitalIn the event this information is protected by the Federal Confidentiality of Alcohol and Drug Abuse Patient Records regulations: The Federal rules restrict any use of the information to criminally investigate or prosecute any alcohol or drug abuse patient.[facility] HospitalIn the event this information is protected by the Federal Confidentiality of Alcohol and Drug Abuse Patient Records regulations: The Federal rules restrict any use of the information to criminally investigate or prosecute any alcohol or drug abuse patient.[facility] HospitalIn the event this information is protected by the Federal Confidentiality of Alcohol and Drug Abuse Patient Records regulations: The Federal rules restrict any use of the information to criminally investigate or prosecute any alcohol or drug abuse patient.[facility] HospitalIn the event this information is protected by the Federal Confidentiality of Alcohol and Drug Abuse Patient Records regulations: The Federal rules restrict any use of the information to criminally investigate or prosecute any alcohol or drug abuse patient.[facility] HospitalIn the event this information is protected by the Federal Confidentiality of Alcohol and Drug Abuse Patient Records regulations: The Federal rules restrict any use of the information to criminally investigate or prosecute any alcohol or drug abuse patient.[facility] HospitalIn the event this information is protected by the Federal Confidentiality of Alcohol and Drug Abuse Patient Records regulations: The Federal rules restrict any use of the information to criminally investigate or prosecute any alcohol or drug abuse patient.[facility] HospitalIn the event this information is protected by the Federal Confidentiality of Alcohol and Drug Abuse Patient Records regulations: The Federal rules restrict any use of the information to criminally investigate or prosecute any alcohol or drug abuse patient.[facility] HospitalIn the event this information is protected by the Federal Confidentiality of Alcohol and Drug Abuse Patient Records regulations: The Federal rules restrict any use of the information to criminally investigate or prosecute any alcohol or drug abuse patient.[facility] HospitalIn the event this information is protected by the Federal Confidentiality of Alcohol and Drug Abuse Patient Records regulations: The Federal rules restrict any use of the information to criminally investigate or prosecute any alcohol or drug abuse patient.[facility] HospitalIn the event this information is protected by the Federal Confidentiality of Alcohol and Drug Abuse Patient Records regulations: The Federal rules restrict any use of the information to criminally investigate or prosecute any alcohol or drug abuse patient.[facility] HospitalIn the event this information is protected by the Federal Confidentiality of Alcohol and Drug Abuse Patient Records regulations: The Federal rules restrict any use of the information to criminally investigate or prosecute any alcohol or drug abuse patient.[facility] HospitalIn the event this information is protected by the Federal Confidentiality of Alcohol and Drug Abuse Patient Records regulations: The Federal rules restrict any use of the information to criminally investigate or prosecute any alcohol or drug abuse patient.[facility] HospitalIn the event this information is protected by the Federal Confidentiality of Alcohol and Drug Abuse Patient Records regulations: The Federal rules restrict any use of the information to criminally investigate or prosecute any alcohol or drug abuse patient.[facility] HospitalIn the event this information is protected by the Federal Confidentiality of Alcohol and Drug Abuse Patient Records regulations: The Federal rules restrict any use of the information to criminally investigate or prosecute any alcohol or drug abuse patient.[facility] HospitalIn the event this information is protected by the Federal Confidentiality of Alcohol and Drug Abuse Patient Records regulations: The Federal rules restrict any use of the information to criminally investigate or prosecute any alcohol or drug abuse patient.[facility] HospitalIn the event this information is protected by the Federal Confidentiality of Alcohol and Drug Abuse Patient Records regulations: The Federal rules restrict any use of the information to criminally investigate or prosecute any alcohol or drug abuse patient.[facility] HospitalIn the event this information is protected by the Federal Confidentiality of Alcohol and Drug Abuse Patient Records regulations: The Federal rules restrict any use of the information to criminally investigate or prosecute any alcohol or drug abuse patient.[facility] HospitalIn the event this information is protected by the Federal Confidentiality of Alcohol and Drug Abuse Patient Records regulations: The Federal rules restrict any use of the information to criminally investigate or prosecute any alcohol or drug abuse patient.[facility] HospitalIn the event this information is protected by the Federal Confidentiality of Alcohol and Drug Abuse Patient Records regulations: The Federal rules restrict any use of the information to criminally investigate or prosecute any alcohol or drug abuse patient.[facility] HospitalIn the event this information is protected by the Federal Confidentiality of Alcohol and Drug Abuse Patient Records regulations: The Federal rules restrict any use of the information to criminally investigate or prosecute any alcohol or drug abuse patient.[facility] HospitalIn the event this information is protected by the Federal Confidentiality of Alcohol and Drug Abuse Patient Records regulations: The Federal rules restrict any use of the information to criminally investigate or prosecute any alcohol or drug abuse patient.[facility] HospitalIn the event this information is protected by the Federal Confidentiality of Alcohol and Drug Abuse Patient Records regulations: The Federal rules restrict any use of the information to criminally investigate or prosecute any alcohol or drug abuse patient.[facility] HospitalIn the event this information is protected by the Federal Confidentiality of Alcohol and Drug Abuse Patient Records regulations: The Federal rules restrict any use of the information to criminally investigate or prosecute any alcohol or drug abuse patient.[facility] HospitalIn the event this information is protected by the Federal Confidentiality of Alcohol and Drug Abuse Patient Records regulations: The Federal rules restrict any use of the information to criminally investigate or prosecute any alcohol or drug abuse patient.[facility] HospitalIn the event this information is protected by the Federal Confidentiality of Alcohol and Drug Abuse Patient Records regulations: The Federal rules restrict any use of the information to criminally investigate or prosecute any alcohol or drug abuse patient.[facility] HospitalIn the event this information is protected by the Federal Confidentiality of Alcohol and Drug Abuse Patient Records regulations: The Federal rules restrict any use of the information to criminally investigate or prosecute any alcohol or drug abuse patient.[facility] HospitalIn the event this information is protected by the Federal Confidentiality of Alcohol and Drug Abuse Patient Records regulations: The Federal rules restrict any use of the information to criminally investigate or prosecute any alcohol or drug abuse patient.[facility] HospitalIn the event this information is protected by the Federal Confidentiality of Alcohol and Drug Abuse Patient Records regulations: The Federal rules restrict any use of the information to criminally investigate or prosecute any alcohol or drug abuse patient.[facility] HospitalIn the event this information is protected by the Federal Confidentiality of Alcohol and Drug Abuse Patient Records regulations: The Federal rules restrict any use of the information to criminally investigate or prosecute any alcohol or drug abuse patient.[facility] HospitalIn the event this information is protected by the Federal Confidentiality of Alcohol and Drug Abuse Patient Records regulations: The Federal rules restrict any use of the information to criminally investigate or prosecute any alcohol or drug abuse patient.[facility] HospitalIn the event this information is protected by the Federal Confidentiality of Alcohol and Drug Abuse Patient Records regulations: The Federal rules restrict any use of the information to criminally investigate or prosecute any alcohol or drug abuse patient.[facility] HospitalIn the event this information is protected by the Federal Confidentiality of Alcohol and Drug Abuse Patient Records regulations: The Federal rules restrict any use of the information to criminally investigate or prosecute any alcohol or drug abuse patient.[facility] HospitalIn the event this information is protected by the Federal Confidentiality of Alcohol and Drug Abuse Patient Records regulations: The Federal rules restrict any use of the information to criminally investigate or prosecute any alcohol or drug abuse patient.[facility] HospitalIn the event this information is protected by the Federal Confidentiality of Alcohol and Drug Abuse Patient Records regulations: The Federal rules restrict any use of the information to criminally investigate or prosecute any alcohol or drug abuse patient.[facility] HospitalIn the event this information is protected by the Federal Confidentiality of Alcohol and Drug Abuse Patient Records regulations: The Federal rules restrict any use of the information to criminally investigate or prosecute any alcohol or drug abuse patient.[facility] HospitalIn the event this information is protected by the Federal Confidentiality of Alcohol and Drug Abuse Patient Records regulations: The Federal rules restrict any use of the information to criminally investigate or prosecute any alcohol or drug abuse patient.[facility] HospitalIn the event this information is protected by the Federal Confidentiality of Alcohol and Drug Abuse Patient Records regulations: The Federal rules restrict any use of the information to criminally investigate or prosecute any alcohol or drug abuse patient.[facility] HospitalIn the event this information is protected by the Federal Confidentiality of Alcohol and Drug Abuse Patient Records regulations: The Federal rules restrict any use of the information to criminally investigate or prosecute any alcohol or drug abuse patient.[facility] HospitalIn the event this information is protected by the Federal Confidentiality of Alcohol and Drug Abuse Patient Records regulations: The Federal rules restrict any use of the information to criminally investigate or prosecute any alcohol or drug abuse patient.[facility] HospitalIn the event this information is protected by the Federal Confidentiality of Alcohol and Drug Abuse Patient Records regulations: The Federal rules restrict any use of the information to criminally investigate or prosecute any alcohol or drug abuse patient.[facility] HospitalIn the event this information is protected by the Federal Confidentiality of Alcohol and Drug Abuse Patient Records regulations: The Federal rules restrict any use of the information to criminally investigate or prosecute any alcohol or drug abuse patient.[facility] HospitalIn the event this information is protected by the Federal Confidentiality of Alcohol and Drug Abuse Patient Records regulations: The Federal rules restrict any use of the information to criminally investigate or prosecute any alcohol or drug abuse patient.[facility] HospitalIn the event this information is protected by the Federal Confidentiality of Alcohol and Drug Abuse Patient Records regulations: The Federal rules restrict any use of the information to criminally investigate or prosecute any alcohol or drug abuse patient.[facility] HospitalIn the event this information is protected by the Federal Confidentiality of Alcohol and Drug Abuse Patient Records regulations: The Federal rules restrict any use of the information to criminally investigate or prosecute any alcohol or drug abuse patient.[facility] HospitalIn the event this information is protected by the Federal Confidentiality of Alcohol and Drug Abuse Patient Records regulations: The Federal rules restrict any use of the information to criminally investigate or prosecute any alcohol or drug abuse patient.[facility] HospitalIn the event this information is protected by the Federal Confidentiality of Alcohol and Drug Abuse Patient Records regulations: The Federal rules restrict any use of the information to criminally investigate or prosecute any alcohol or drug abuse patient.[facility] HospitalIn the event this information is protected by the Federal Confidentiality of Alcohol and Drug Abuse Patient Records regulations: The Federal rules restrict any use of the information to criminally investigate or prosecute any alcohol or drug abuse patient.[facility] HospitalIn the event this information is protected by the Federal Confidentiality of Alcohol and Drug Abuse Patient Records regulations: The Federal rules restrict any use of the information to criminally investigate or prosecute any alcohol or drug abuse patient.[facility] HospitalIn the event this information is protected by the Federal Confidentiality of Alcohol and Drug Abuse Patient Records regulations: The Federal rules restrict any use of the information to criminally investigate or prosecute any alcohol or drug abuse patient.[facility] HospitalIn the event this information is protected by the Federal Confidentiality of Alcohol and Drug Abuse Patient Records regulations: The Federal rules restrict any use of the information to criminally investigate or prosecute any alcohol or drug abuse patient.[facility] HospitalIn the event this information is protected by the Federal Confidentiality of Alcohol and Drug Abuse Patient Records regulations: The Federal rules restrict any use of the information to criminally investigate or prosecute any alcohol or drug abuse patient.[facility] HospitalIn the event this information is protected by the Federal Confidentiality of Alcohol and Drug Abuse Patient Records regulations: The Federal rules restrict any use of the information to criminally investigate or prosecute any alcohol or drug abuse patient.[facility] HospitalIn the event this information is protected by the Federal Confidentiality of Alcohol and Drug Abuse Patient Records regulations: The Federal rules restrict any use of the information to criminally investigate or prosecute any alcohol or drug abuse patient.[facility] HospitalIn the event this information is protected by the Federal Confidentiality of Alcohol and Drug Abuse Patient Records regulations: The Federal rules restrict any use of the information to criminally investigate or prosecute any alcohol or drug abuse patient.[facility] HospitalIn the event this information is protected by the Federal Confidentiality of Alcohol and Drug Abuse Patient Records regulations: The Federal rules restrict any use of the information to criminally investigate or prosecute any alcohol or drug abuse patient.[facility] HospitalIn the event this information is protected by the Federal Confidentiality of Alcohol and Drug Abuse Patient Records regulations: The Federal rules restrict any use of the information to criminally investigate or prosecute any alcohol or drug abuse patient.[facility] HospitalIn the event this information is protected by the Federal Confidentiality of Alcohol and Drug Abuse Patient Records regulations: The Federal rules restrict any use of the information to criminally investigate or prosecute any alcohol or drug abuse patient.[facility] HospitalIn the event this information is protected by the Federal Confidentiality of Alcohol and Drug Abuse Patient Records regulations: The Federal rules restrict any use of the information to criminally investigate or prosecute any alcohol or drug abuse patient.[facility] HospitalIn the event this information is protected by the Federal Confidentiality of Alcohol and Drug Abuse Patient Records regulations: The Federal rules restrict any use of the information to criminally investigate or prosecute any alcohol or drug abuse patient.[facility] HospitalIn the event this information is protected by the Federal Confidentiality of Alcohol and Drug Abuse Patient Records regulations: The Federal rules restrict any use of the information to criminally investigate or prosecute any alcohol or drug abuse patient.[facility] HospitalIn the event this information is protected by the Federal Confidentiality of Alcohol and Drug Abuse Patient Records regulations: The Federal rules restrict any use of the information to criminally investigate or prosecute any alcohol or drug abuse patient.[facility] HospitalIn the event this information is protected by the Federal Confidentiality of Alcohol and Drug Abuse Patient Records regulations: The Federal rules restrict any use of the information to criminally investigate or prosecute any alcohol or drug abuse patient.[facility] HospitalIn the event this information is protected by the Federal Confidentiality of Alcohol and Drug Abuse Patient Records regulations: The Federal rules restrict any use of the information to criminally investigate or prosecute any alcohol or drug abuse patient.[facility] HospitalIn the event this information is protected by the Federal Confidentiality of Alcohol and Drug Abuse Patient Records regulations: The Federal rules restrict any use of the information to criminally investigate or prosecute any alcohol or drug abuse patient.[facility] HospitalIn the event this information is protected by the Federal Confidentiality of Alcohol and Drug Abuse Patient Records regulations: The Federal rules restrict any use of the information to criminally investigate or prosecute any alcohol or drug abuse patient.[facility] HospitalIn the event this information is protected by the Federal Confidentiality of Alcohol and Drug Abuse Patient Records regulations: The Federal rules restrict any use of the information to criminally investigate or prosecute any alcohol or drug abuse patient.[facility] HospitalIn the event this information is protected by the Federal Confidentiality of Alcohol and Drug Abuse Patient Records regulations: The Federal rules restrict any use of the information to criminally investigate or prosecute any alcohol or drug abuse patient.[facility] HospitalIn the event this information is protected by the Federal Confidentiality of Alcohol and Drug Abuse Patient Records regulations: The Federal rules restrict any use of the information to criminally investigate or prosecute any alcohol or drug abuse patient.[facility] HospitalIn the event this information is protected by the Federal Confidentiality of Alcohol and Drug Abuse Patient Records regulations: The Federal rules restrict any use of the information to criminally investigate or prosecute any alcohol or drug abuse patient.[facility] HospitalIn the event this information is protected by the Federal Confidentiality of Alcohol and Drug Abuse Patient Records regulations: The Federal rules restrict any use of the information to criminally investigate or prosecute any alcohol or drug abuse patient.[facility] HospitalIn the event this information is protected by the Federal Confidentiality of Alcohol and Drug Abuse Patient Records regulations: The Federal rules restrict any use of the information to criminally investigate or prosecute any alcohol or drug abuse patient.[facility] HospitalIn the event this information is protected by the Federal Confidentiality of Alcohol and Drug Abuse Patient Records regulations: The Federal rules restrict any use of the information to criminally investigate or prosecute any alcohol or drug abuse patient.[facility] HospitalIn the event this information is protected by the Federal Confidentiality of Alcohol and Drug Abuse Patient Records regulations: The Federal rules restrict any use of the information to criminally investigate or prosecute any alcohol or drug abuse patient.[facility] HospitalIn the event this information is protected by the Federal Confidentiality of Alcohol and Drug Abuse Patient Records regulations: The Federal rules restrict any use of the information to criminally investigate or prosecute any alcohol or drug abuse patient.[facility] HospitalIn the event this information is protected by the Federal Confidentiality of Alcohol and Drug Abuse Patient Records regulations: The Federal rules restrict any use of the information to criminally investigate or prosecute any alcohol or drug abuse patient.[facility] HospitalIn the event this information is protected by the Federal Confidentiality of Alcohol and Drug Abuse Patient Records regulations: The Federal rules restrict any use of the information to criminally investigate or prosecute any alcohol or drug abuse patient.[facility] HospitalIn the event this information is protected by the Federal Confidentiality of Alcohol and Drug Abuse Patient Records regulations: The Federal rules restrict any use of the information to criminally investigate or prosecute any alcohol or drug abuse patient.[facility] HospitalIn the event this information is protected by the Federal Confidentiality of Alcohol and Drug Abuse Patient Records regulations: The Federal rules restrict any use of the information to criminally investigate or prosecute any alcohol or drug abuse patient.[facility] HospitalIn the event this information is protected by the Federal Confidentiality of Alcohol and Drug Abuse Patient Records regulations: The Federal rules restrict any use of the information to criminally investigate or prosecute any alcohol or drug abuse patient.[facility] HospitalIn the event this information is protected by the Federal Confidentiality of Alcohol and Drug Abuse Patient Records regulations: The Federal rules restrict any use of the information to criminally investigate or prosecute any alcohol or drug abuse patient.[facility] HospitalIn the event this information is protected by the Federal Confidentiality of Alcohol and Drug Abuse Patient Records regulations: The Federal rules restrict any use of the information to criminally investigate or prosecute any alcohol or drug abuse patient.[facility] Reason for Visit (unrecogniz ed section and content) Reason Comments Refill Request Reason Comments New Patient Sleep Apnea Specialty Diagnoses / Procedures Referred By Contac t Referred To Contact Diagnoses GHASSAN (obstructive sleep apnea) Procedures CONSULT TO SLEEP MEDICINE - ADULT OFFICE/OUTPATIENT [facility] MDM 60-74 MINUTES Helen Newman PA-C [address] [address] Shaun Hernandez Jr., MD [address] [address] Referral ID Status Reason Start Date Expiration Date V isits Requested Visits Authorized [id number] Closed PCP Requested Referral 11/25/2021 02/23/2022 1 1 Reason Comments Electronic Communication Reason Comments Sleep Apnea Reason Comments Spirometry Specialty Diagnoses / Procedures Referred By Contac t Referred To Contact [facility] Diagnoses Stage 3 severe COPD by GOLD classification ([facility]) Procedures LUNG DIFFUSION CAPACITY (DLCO) DIFFUSING CAPACITY Helen Newman PA-C [address] [address] [facility] [place] [address] [place] [id number] Referral ID Status Reason Start Date Expiration Date V isits Requested Visits Authorized [id number] Closed Auto-Generate d Referral 09/03/2021 10/03/2022 1 1 Specialty Diagnoses / Procedures Referred By Contac t Referred To Contact [facility] Diagnoses Stage 3 severe COPD by GOLD classification ([facility]) Procedures SPIROMETRY BASELINE ONLY SPMTRY W/VC EXPIRATORY NATTY W/WO MXML VOL VNTJ Helen Newman PA-C [address] [address] [facility] [place] [address] [place] [id number] Referral ID Status Reason Start Date Expiration Date V isits Requested Visits Authorized [id number] Closed Auto-Generate d Referral 09/03/2021 10/03/2022 1 1 Reason Comments Established Patient COPD Reason Onset Date Comments Refill Request 03/14/[address] Specialty Diagnoses / Procedures Referred By Contac t Referred To Contact CT IMAGING Diagnoses Stage 4 very severe COPD by GOLD classification ([facility]) SOB (shortness of breath) 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HCC) Procedures CT CHEST WO IVCON DIAGNOSTIC COMPUTED TOMOGRAPHY THORAX W/O CNTRST Millie Sánchez MD [address] [place] [address] Ct Imaging Referral ID Status Reason Start Date Expiration Date V isits Requested Visits Authorized [id number] Closed Auto-Generate d Referral 03/04/2022 07/02/2022 1 1 Reason Comments Cough Cough, congestion, y ellow/green drainage-COPD exacerbation x 1 week Reason Comments Discussion For Lift Chair Reason Comments Orders Reason Comments COPD 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 Reason Comments Patient Update Reason Comments Results Specialty Diagnoses / Procedures Referred By Contac t Referred To Contact CT IMAGING Diagnoses Lung nodules Pulmonary emphysema, unspecified emphysema type (HCC) Procedures CT CHEST WO IVCON DIAGNOSTIC COMPUTED TOMOGRAPHY THORAX W/O CNTRST Nathalie Mojica APRN.[employer]ANG[employer] PRESS CATCHER [address] [place] [address] Ct Imaging [place] [id number] Referral ID Status Reason Start Date Expiration Date V isits Requested Visits Authorized [id number] Closed Auto-Generate d Referral 04/11/2023 05/10/2024 1 1 Reason Comments Established Patient 3 month follow up [place] Specialty Diagnoses / Procedures Referred By Contac t Referred To Contact [facility] Diagnoses Stage 4 very severe COPD by GOLD classification ([facility]) Procedures SPIROMETRY BASELINE ONLY SPMTRY W/VC EXPIRATORY NATTY W/WO MXML VOL Helen Reddy, PAKristian [address] [place] [address] [facility] [place] [address] [place] [address] Referral ID Status Reason Start Date Expiration Date V isits Requested Visits Authorized [id number] Closed Auto-Generate d Referral 07/12/2023 08/10/2024 1 1 Specialty Diagnoses / Procedures Referred By Contac t Referred To Contact [facility] Diagnoses Stage 4 very severe COPD by GOLD classification ([facility]) Procedures LUNG DIFFUSION CAPACITY (DLCO) DIFFUSING CAPACITY Helen Newman PA-C [address] [place] [address] [address] Referral ID Status Reason Start Date Expiration Date V isits Requested Visits Authorized [id number] Closed Auto-Generate d Referral 07/12/2023 08/10/2024 1 1 Specialty Diagnoses / Procedures Referred By Contac t Referred To [facility] Diagnoses Stage 4 very severe COPD by GOLD classification ([facility]) Procedures LUNG VOLUMES Helen Newman PA-C [address] [place] [address] [address] Referral ID Status Reason Start Date Expiration Date V isits Requested Visits Authorized [id number] Closed Auto-Generate d Referral 08/03/2023 07/02/2024 1 1 Reason Comments Established Patient COPD Established Patient Follow-Up Specialty Diagnoses / Procedures Referred By Contac t Referred To Contact [facility] Diagnoses Stage 4 very severe COPD by GOLD classification ([facility] Chronic hypoxemic respiratory failure ([facility]) Procedures OXIMETRY WITH AMBULATION NONINVASIVE EAR/PULSE OXIMETRY MULTIPLE DETER Helen Newman PA-C [address] [place] [address] [address] Referral ID Status Reason Start Date Expiration Date V isits Requested Visits Authorized [id number] Closed Auto-Generate d Referral 08/29/2023 09/27/2024 1 1 Reason Comments Established Patient 6 month follow up [place] Reason Onset Date Comments Refill Request 04/10/2024 Reason Comments Med Change Request Reason Comments Radiology CT Specialty Diagnoses / Procedures Referred By Contac t Referred To Contact CT IMAGING Diagnoses Lung nodules Procedures CT CHEST WO IVCON DIAGNOSTIC COMPUTED TOMOGRAPHY THORAX W/O CNTRST Nathalie Mojica, PODIATRIST ASSISTANT.MANGLE PRESS CATCHER [address] [place] [id number] Imaging [facility]95 Referral ID Status Reason Start Date Expiration Date V isits Requested Visits Authorized [id number] Closed Auto-Generate d Referral 05/01/2023 05/30/2024 1 [...] COMPUTED TOMOGRAPHY THORAX W/O CNTRST Nathalie Mojica, PODIATRIST ASSISTANT.MANGLE PRESS CATCHER [address] [place] [address] Phone: tel: fax: CT IMAGING [facility]95 Referral ID Status Reason Start Date Expiration Date V isits Requested Visits Authorized [id number] Closed Auto-Generate d Referral 05/27/2024 06/26/2025 1 1 Reason Onset Date Comments Refill Request 11/27/2024 Reason Onset Date Comments Refill Request 01/15/2025 Reason Comments Shortness of Breath Pt is pursed lip roxanna athing, Shortness of Breath, wheeze, x 2-3 weeks Care Teams (unrecognized sec tion and content) Motor Expert Relationship Specialty Start Date End Date Alberto Avelar MD [address] [place], [place] [id number] PCP - General Family Practice 11/11/10 Motor Expert Relationship Specialty Start Date End Date Alberto Avelar MD [address] [place], [place] [id number] PCP - General Family Practice 11/11/10 Motor Expert Relationship Specialty Start Date End Date Alberto Avelar MD [address] [facility] [place] [address] PCP - General Family Practice 11/11/10 Motor Expert Relationship Specialty Start Date End Date Alberto Avelar MD [address] [facility] [place] [address] PCP - General Family Practice 11/11/10 Motor Expert Relationship Specialty Start Date End Date Alberto Avelar MD [address] [facility] [address] PCP - General Family Practice 11/11/10 Motor Expert Relationship Specialty Start Date End Date Alberto Avelar MD [facility] [place] [address] PCP - General Family Practice 11/11/10 Motor Expert Relationship Specialty Start Date End Date Alberto Avelar MD [facility] [place] [address] PCP - General Family Practice 11/11/10 Motor Expert Relationship Specialty Start Date End Date Alberto Avelar MD [facility] [place] [address] PCP - General Family Practice 11/11/10 Motor Expert Relationship Specialty Start Date End Date Alberto Avelar MD [facility] [place] [address] PCP - General Family Practice 11/11/10 Motor Expert Relationship Specialty Start Date End Date Alberto Avelar MD [address] [facility] [address] PCP - General Family Practice 11/11/10 Motor Expert Relationship Specialty Start Date End Date Alberto Avelar MD [address] [facility] [place] [address] PCP - General Family Practice 11/11/10 Motor Expert Relationship Specialty Start Date End Date Alberto Avelar MD [address] [facility] [address] PCP - General Family Practice 11/11/10 Motor Expert Relationship Specialty Start Date End Date Alberto Avelar MD [address] [facility] [place] [address] PCP - General Family Medicine 11/11/10 Motor Expert Relationship Specialty Start Date End Date Alberto Avelar MD [address] [facility] [address] PCP - General Family Medicine 11/11/10 Motor Expert Relationship Specialty Start Date End Date Alberto Avelar MD [address] [facility] [address] PCP - General Family Medicine 11/11/10 Motor Expert Relationship Specialty Start Date End Date Alberto Avelar MD [address] [facility] [address] PCP - General Family Medicine 11/11/10 Motor Expert Relationship Specialty Start Date End Date Alberto Avelar MD [address] [facility] [address] PCP - General Family Medicine 11/11/10 Motor Expert Relationship Specialty Start Date End Date Alberto Avelar MD [address] [facility] [address] PCP - General Family Medicine 11/11/10 Motor Expert Relationship Specialty Start Date End Date Alberto Avelar MD [address] [facility] [address] PCP - General Family Medicine 11/11/10 Motor Expert Relationship Specialty Start Date End Date Alberto Avelar MD [address] [facility] [place] [address] PCP - General Family Medicine 11/11/10 Motor Expert Relationship Specialty Start Date End Date Alberto Avelar MD [address] [place] [address] PCP - General Family Medicine 11/11/10 Motor Expert Relationship Specialty Start Date End Date Alberto Avelar MD [address] [place] [address] PCP - General Family Medicine 11/11/10 Motor Expert Relationship Specialty Start Date End Date Alberto Avelar MD [address] [place] [address] PCP - General Family Medicine 11/11/10 Motor Expert Relationship Specialty Start Date End Date Alberto Avelar MD [address] [place] [address] PCP - General Family Medicine 11/11/10 Motor Expert Relationship Specialty Start Date End Date Alberto Avelar MD [address] [place] [address] PCP - General Family Medicine 11/11/10 Motor Expert Relationship Specialty Start Date End Date Alberto Avelar MD [address] [place] [address] PCP - General Family Medicine 11/11/10 Motor Expert Relationship Specialty Start Date End Date Alberto Avelar MD [address] [place] [address] PCP - General Family Medicine 11/11/10 Motor Expert Relationship Specialty Start Date End Date Alberto Avelar MD [address] [place] [address] PCP - General Family Medicine 11/11/10 Motor Expert Relationship Specialty Start Date End Date Alberto Avelar MD [address] [facility] [place] [address] PCP - General Family Medicine 11/11/10 Helen Newman PA-C [address] [place] [facility] [address] Pulmonary and Critical Care Medicine 04/13/23 Motor Expert Relationship Specialty Start Date End Date Alberto Avelar MD [address] [place] [address] PCP - General Family Medicine 11/11/10 Helen Newman PA-C [address] [place] [address] Pulmonary and Critical Care Medicine 04/13/23 Motor Expert Relationship Specialty Start Date End Date Alberto Avelar MD [address] [place] [address] PCP - General Family Medicine 11/11/10 Helen Newman, PA-C [address] [place] [address] Pulmonary and Critical Care Medicine 04/13/23 Motor Expert Relationship Specialty Start Date End Date Alberto Avelar MD [address] [facility] [place] [address] PCP - General Family Medicine 11/11/10 Helen Newman PA-Sandra [address] [address] [address] Pulmonary and Critical Care Medicine 04/13/23 Motor Expert Relationship Specialty Start Date End Date Alberto Avelar MD [address] [facility] [place] [address] PCP - General Family Medicine 11/11/10 Helen Newman PA-C [address] [place] [address] Pulmonary and Critical Care Medicine 04/13/23 Motor Expert Relationship Specialty Start Date End Date Alberto Avelar MD [address] [facility] [place] [address] PCP - General Family Medicine 11/11/10 Helen Newman PA-C [address] [place] [address] Pulmonary and Critical Care Medicine 04/13/23 Motor Expert Relationship Specialty Start Date End Date Alberto Avelar MD [address] [facility] [address] PCP - General Family Medicine 11/11/10 Helen Newman PA-C [address] [place] [address] Pulmonary and Critical Care Medicine 04/13/23 Motor Expert Relationship Specialty Start Date End Date Alberto Avelar MD [address] [facility] [address] PCP - General Family Medicine 11/11/10 Helen Newman PA-C [address] [place] [address] Pulmonary and Critical Care Medicine 04/13/23 Motor Expert Relationship Specialty Start Date End Date Alberto Avelar MD [address] [place] [address] PCP - General Family Medicine 11/11/10 Helen Newman PA-C [address] [place] [address] Pulmonary and Critical Care Medicine 04/13/23 Motor Expert Relationship Specialty Start Date End Date Alberto Avelar MD [address] [place] [address] PCP - General Family Medicine 11/11/10 Helen Newman PA-C [address] [place] [address] Pulmonary and Critical Care Medicine 04/13/23 Motor Expert Relationship Specialty Start Date End Date Alberto Avelar MD [address] [place] [address] PCP - General Family Medicine 11/11/10 Helen Newman PA-C [address] [place] [address] Pulmonary and Critical Care Medicine 04/13/23 Motor Expert Relationship Specialty Start Date End Date Alberto Avelar MD [address] [place] [address] PCP - General Family Medicine 11/11/10 Helen Newman PA-C [address] [place] [place] [address] Pulmonary and Critical Care Medicine 04/13/23 Motor Expert Relationship Specialty Start Date End Date Alberto Avelar MD [address] [facility] [address] PCP - General Family Medicine 11/11/10 Helen Newman PA-C [address] [place] [place] [address] Pulmonary and Critical Care Medicine 04/13/23 Motor Expert Relationship Specialty Start Date End Date Alberto Avelar MD [address] [facility] [address] PCP - General Family Medicine 11/11/10 Helen Newman PA-C [address] [place] [address] Pulmonary and Critical Care Medicine 04/13/23 Motor Expert Relationship Specialty Start Date End Date Alberto Avelar MD [address] [facility] [address] PCP - General Family Medicine 11/11/10 Helen Newman PA-C [address] [place] [place] [address] Pulmonary and Critical Care Medicine 04/13/23 Motor Expert Relationship Specialty Start Date End Date Alberto Avelar MD [address] [facility] [address] PCP - General Family Medicine 11/11/10 Helen Newman PA-C [address] [place] [address] Pulmonary and Critical Care Medicine 04/13/23 Motor Expert Relationship Specialty Start Date End Date Alberto Avelar MD [address] [place] [address] PCP - General Family Medicine 11/11/10 Helen Newman PA-C [address] [place] [address] Pulmonary and Critical Care Medicine 04/13/23 Shalini Jacobo, DIOGO.MANGLE PRESS CATCHER [address] [place] [address] General Internal Medicine Doctor [facility] 06/09/24 Motor Expert Relationship Specialty Start Date End Date Alberto Avelar MD [address] [facility] [place] [address] PCP - General Family Medicine 11/11/10 Helen Newman PA-C [address] [place] [address] Pulmonary and Critical Care Medicine 04/13/23 Shalini Jacobo, PODIATRIST ASSISTANT.MANGLE PRESS CATCHER [address] [place] [address] [facility] Motor Expert Relationship Specialty Start Date End Date Alberto Avelar MD [address] [place] [address] PCP - General Family Medicine 11/11/10 Helen Newman PA-C [address] [place] [address] Pulmonary and Critical Care Medicine 04/13/23 Shalini Jacobo APRN.MANGLE PRESS CATCHER [address] [place] [address] General Internal Medicine Doctor [facility] 06/09/24 Motor Expert Relationship Specialty Start Date End Date Alberto Avelar MD [address] [place] [address] PCP - General Family Medicine 11/11/10 Helen Newman PA-C [address] [place] [address] Pulmonary and Critical Care Medicine 04/13/23 Shalini Jacobo APRN.MANGLE PRESS CATCHER [address] [place] [address] [facility] 06/09/24 Gurmeet Tao APRN.MANGLE PRESS CATCHER [address] [place] [address] General [facility] 06/18/24 Motor Expert Relationship Specialty Start Date End Date Alberto Avelar MD [address] [place] [address] PCP - General Family Medicine 11/11/10 Helen Newman PA-C [address] [place] [address] Pulmonary and Critical Care Medicine 04/13/23 Shalini Jacobo APRN.MANGLE PRESS CATCHER [address] [facility] [place] [address] General Internal Medicine Doctor [facility] 06/09/24 Gurmeet Tao APRN.MANGLE PRESS CATCHER [address] [place] [address] General Internal Medicine Doctor [facility] 06/18/24 Motor Expert Relationship Specialty Start Date End Date Alberto Avelar MD [address] [place] [address] PCP - General Family Medicine 11/11/10 Helen Newman, CHRISTIANE-C [address] [place] [address] Pulmonary and Critical Care Medicine 04/13/23 Shalini Jacobo APRN.MANGLE PRESS CATCHER [address] [place] [address] General [facility] 06/09/24 Gurmeet Tao APRN.MANGLE PRESS CATCHER [address] [address] General [facility] 06/18/24 Motor Expert Relationship Specialty Start Date End Date Alberto Avelar MD [address] [place] [address] PCP - General Family Medicine 11/11/10 Helen Newman, CHRISTIANE-Sandra [address] [place] [address] Pulmonary and Critical Care Medicine 04/13/23 Shalini Jacobo APRN.MANGLE PRESS CATCHER [address] [place] [address] General [facility] 06/09/24 Gurmeet Tao APRN.MANGLE PRESS CATCHER [address] [place] [address] [facility] 06/18/24 Motor Expert Relationship Specialty Start Date End Date Alberto Avelar MD [address] [place] [address] PCP - General Family Medicine 11/11/10 Helen Newman, PA-C [address] [place] [address] Pulmonary and Critical Care Medicine 04/13/23 Shalini Jacobo APRN.MANGLE PRESS CATCHER [address] [place] [address] [facility] 06/09/24 Gurmeet Tao APRN.MANGLE PRESS CATCHER [address] [place] [address] [facility] 06/18/24 Motor Expert Relationship Specialty Start Date End Date Alberto Avelar MD [address] [place] [address] PCP - General Family Medicine 11/11/10 Helen Newman, PA-C [address] [place] [address] Pulmonary and Critical Care Medicine 04/13/23 Shalini Jacobo APRN.MANGLE PRESS CATCHER [address] [place] [address] [facility] 06/09/24 Gurmeet Tao APRN.MANGLE PRESS CATCHER [address] [place] [address] [facility] 06/18/24 Motor Expert Relationship Specialty Start Date End Date Alberto Avelar MD [address] [place] [address] PCP - General Family Medicine 11/11/10 Helen Newman, PA-C [address] [place] [address] Pulmonary and Critical Care Medicine 04/13/23 Shalini Jacobo APRN.MANGLE PRESS CATCHER [address] [place] [address] [facility] 06/09/24 Gurmeet Tao APRN.MANGLE PRESS CATCHER [address] [place] [address] [facility] 06/18/24 Motor Expert Relationship Specialty Start Date End Date Alberto Avelar MD [address] [place] [address] PCP - General Family Medicine 11/11/10 Helen Newman, PA-C [address] [place] [address] Pulmonary and Critical Care Medicine 04/13/23 Shalini Jacobo APRN.MANGLE PRESS CATCHER [address] [place] [address] [facility] 06/09/24 Gurmeet Tao APRN.MANGLE PRESS CATCHER [address] [facility] [place] [address] General Internal [facility] 06/18/24 Motor Expert Relationship Specialty Start Date End Date Alberto Avelar MD [address] [facility] [place] [address] PCP - General Family Medicine 11/11/10 Helen Newman, PA-C [address] [place] [facility] [address] Pulmonary and Critical Care Medicine 04/13/23 Shalini Jacobo APRN.MANGLE PRESS CATCHER [address] [place] [address] General [facility] 06/09/24 Gurmeet Tao APRN.MANGLE PRESS CATCHER [address] [facility] [place] [address] [facility] 06/18/24 Motor Expert Relationship Specialty Start Date End Date Alberto Avelar MD [address] [place] [address] PCP - General Family Medicine 11/11/10 Helen Newman, PA-C [address] [place] [address] Pulmonary and Critical Care Medicine 04/13/23 Shalini Jacobo APRN.MANGLE PRESS CATCHER [address] [place] [address] [facility] 06/09/24 Gurmeet Tao APRN.MANGLE PRESS CATCHER [address] [facility] [place] [address] General Internal [facility] 06/18/24 Motor Expert Relationship Specialty Start Date End Date Alberto Avelar MD [address] [place] [address] PCP - General Family Medicine 11/11/10 Helen Newman PA-C [address] [address] Pulmonary and Critical Care Medicine 04/13/23 Shalini Jacobo APRN.MANGLE PRESS CATCHER [address] [place] [address] General [facility] 06/09/24 Gurmeet Tao APRN.MANGLE PRESS CATCHER [address] [place] [address] General Internal [facility] 06/18/24 Motor Expert Relationship Specialty Start Date End Date Alberto Avelar MD [address] [place] [address] PCP - General Family Medicine 11/11/10 Helen Newman PA-C [address] [address] Pulmonary and Critical Care Medicine 04/13/23 Shalini Jacobo APRN.MANGLE PRESS CATCHER [address] [place] [address] General Internal [facility] 06/09/24 Gurmeet Tao APRN.MANGLE PRESS CATCHER [address] [place] [address] General Internal Medicine Doctor Family Medicine 06/18/24 Motor Expert Relationship Specialty Start Date End Date Alberto Avelar MD [address] [place] [address] PCP - General Family Medicine 11/11/10 Helen Newman, CHRISTIANE-C [address] [place] [address] Pulmonary and Critical Care Medicine 04/13/23 Shalini Jacobo APRN.MANGLE PRESS CATCHER [address] [place] [address] General Internal Medicine Doctor Family Medicine 06/09/24 Gurmeet Tao APRN.MANGLE PRESS CATCHER [address] [place] [address] General Internal Medicine Doctor Family Medicine 06/18/24 Motor Expert Relationship Specialty Start Date End Date Alberto Avelar MD [address] [place] [address] PCP - General Family Medicine 11/11/10 Helen Newman, PA-Sandra [address] [place] [address] Pulmonary and Critical Care Medicine 04/13/23 Shalini Jacobo PODIATRIST ASSISTANT.MANGLE PRESS CATCHER [address] [place] [address] General Internal Medicine Doctor Family Medicine 06/09/24 Gurmeet Tao APRN.MANGLE PRESS CATCHER [address] [place] [address] General Internal Medicine Doctor Family Medicine 06/18/24 Motor Expert Relationship Specialty Start Date End Date Alberto Avelar MD [address] [place] [address] PCP - General Family Medicine 11/11/10 Helen Newman PA-C [address] [place] [address] Pulmonary and Critical Care Medicine 04/13/23 Shalini Jacobo PODIATRIST ASSISTANT.MANGLE PRESS CATCHER [address] [place] [address] General Internal Medicine Doctor Family Medicine 06/09/24 Gurmeet Tao PODIATRIST ASSISTANT.MANGLE PRESS CATCHER [address] [place] [address] General Internal [facility] 06/18/24 Motor Expert Relationship Specialty Start Date End Date Alberto Avelar MD [address] [place] [address] PCP - General Family Medicine 11/11/10 Helen Newman, CHRISTIANE-Sandra [address] [place] [address] Pulmonary and Critical Care Medicine 04/13/23 Shalini Jacobo, PODIATRIST ASSISTANT.MANGLE PRESS CATCHER [address] [place] [address] General Internal Medicine Doctor Family Medicine 06/09/24 Gurmeet Tao PODIATRIST ASSISTANT.MANGLE PRESS CATCHER [address] [place] [address] [facility] Medicine 06/18/24 Motor Expert Relationship Specialty Start Date End Date Alberto Avelar MD [address] [place] [address] PCP - General Family Medicine 11/11/10 Helen Newman PA-C [address] [place] [address] Pulmonary and Critical Care Medicine 04/13/23 Gurmeet Tao APRN.MANGLE PRESS CATCHER [address] [place] [address] General Internal [facility] 06/18/24 Motor Expert Relationship Specialty Start Date End Date Alberto Avelar MD [address] [place] [address] PCP - General Family Medicine 11/11/10 Helen Newman PA-C [address] [address] Pulmonary and Critical Care Medicine 04/13/23 Gurmeet Tao APRN.MANGLE PRESS CATCHER [address] [facility] [place] [address] General Internal [facility] 06/18/24 Motor Expert Relationship Specialty Start Date End Date Alberto Avelar MD [address] [place] [address] PCP - General Family Medicine 11/11/10 Helen Newman PA-C [address] [address] Pulmonary and Critical Care Medicine 04/13/23 Gurmeet Tao APRN.MANGLE PRESS CATCHER [address] [place] [address] [facility] 06/18/24 Motor Expert Relationship Specialty Start Date End Date Alberto Avelar MD [address] [facility] [place] [address] PCP - General Family Medicine 11/11/10 Helen Newman PA-C [address] [place] [address] Pulmonary and Critical Care Medicine 04/13/23 Gurmeet Tao APRN.MANGLE PRESS CATCHER [address] [facility] [place] [address] General Internal Medicine Doctor [facility] 06/18/24 Motor Expert Relationship Specialty Start Date End Date Alberto Avelar MD [address] [facility] [place] [address] PCP - General Family Medicine 11/11/10 Helen Newman PA-C [address] [address] Pulmonary and Critical Care Medicine 04/13/23 Gurmeet Tao APRN.MANGLE PRESS CATCHER [address] [facility] [place] [address] General Internal Medicine Doctor [facility] 06/18/24 Motor Expert Relationship Specialty Start Date End Date Alberto Avelar MD [address] [facility] [address] PCP - General Family Medicine 11/11/10 Helen Newman PA-C [address] [place] [address] Pulmonary and Critical Care Medicine 04/13/23 Gurmeet Tao APRN.MANGLE PRESS CATCHER [address] [facility] [place] [address] General Internal [facility] 06/18/24 Motor Expert Relationship Specialty Start Date End Date Alberto Avelar MD [address] [facility] [address] PCP - General Family Medicine 11/11/10 Helen Newman PA-C [address] [place] [address] Pulmonary and Critical Care Medicine 04/13/23 Gurmeet Tao APRN.MANGLE PRESS CATCHER [address] [facility] [place] [address] [facility] 06/18/24 Motor Expert Relationship Specialty Start Date End Date Alberto Avelar MD [address] [facility] [address] PCP - General Family Medicine 11/11/10 Helen Newman PA-C [address] [address] Pulmonary and Critical Care Medicine 04/13/23 Gurmeet Tao APRN.MANGLE PRESS CATCHER [address] [facility] [address] General Internal [facility] 06/18/24 Motor Expert Relationship Specialty Start Date End Date Alberto Avelar MD [address] [facility] [address] PCP - General Family Medicine 11/11/10 Helen Newman PA-C [address] [place] [address] Pulmonary and Critical Care Medicine 04/13/23 Gurmeet Tao APRN.MANGLE PRESS CATCHER [address] [place] [address] General Internal Medicine Doctor Family Medicine 06/18/24 Team Status: Active Member [...] section and content) DATE CREATED AUTHOR 05/02/2023 [facility] DATE CREATED AUTHOR AUTHOR'S ORGANIZ ATION 08/03/2024 [facility] DATE CREATED AUTHOR AUTHOR'S ORGANIZ ATION 10/29/2024 [facility] DATE CREATED AUTHOR AUTHOR'S ORGANIZ ATION 11/20/2024 [facility] Goals (unrecognized section and content) Goals may [...] BE BASED ON THE PRIMARY CLINICAL RECORDS. [facility]. provides no warranty or guarantee of the accuracy or completeness of information in this document.
[2025-02-22] MEDS: Aspirin E.C. 81 MG Tablet PO (08:54)
--- NOTE | 2025-02-22 10:39 | PCM.PROGNOTE ---
Subjective Subjective Patient seen and examined. He was admitted with a complaint of shortness of breath, wheezing and coughing. He still complains of some shortness of breath today. He denies any fever or chills. He says his cough is productive but he is not able to expectorate the sputum. Review of systems is otherwise negative. I saw him with his nurse by his bedside. HE tested positive for flu B also. Objective Data Objective Data Vital Signs: Vital Signs Temp Pulse Resp BP Pulse Ox O2 Del Method O2 Flow Rate 98.6 F 72 18 138/60 H 94 Nasal Cannula 3 02/22/25 03:45 02/22/25 07:54 02/22/25 07:54 02/22/25 03:45 02/22/25 07:54 02/22/25 07:54 02/22/25 07:54 FiO2 30 02/21/25 19:30 Oxygen Flow Rate (L/min) 3 Oxygen Delivery Method Nasal Cannula Weight: 139 lb 8.842 oz Body Mass Index (BMI) 24.7 Intake & Output: Intake and Output for Last 24 Hours 02/20/25 02/21/25 02/22/25 23:59 23:59 23:59 Intake Total 300 / 300 1000 / 1000 Balance 300 / 300 1000 / 1000 Lab / Micro Data 02/22/25 07:18 02/22/25 07:18 Labs: Laboratory Results - last 24 hr 02/21/25 16:58: WBC 13.2 H, RBC 4.68, Hgb 14.2, Hct 42.1, MCV 90.0, MCH 30.3, MCHC 33.7, RDW Std Deviation 42.0, RDW Coeff of [place] 12.8, Plt Count 341, MPV 9.3, Immature Gran % (Auto) 0.400, Neut % (Auto) 78.6 H, Lymph % (Auto) 9.8 L, Patrick % (Auto) 9.0, Eos % (Auto) 1.7, Baso % (Auto) 0.5, Absolute Neuts (auto) 10.4 H, Absolute Lymphs (auto) 1.29, Nucleated RBC % 0, Sodium 140, Potassium 3.9, Chloride 101, Carbon Dioxide 26.4, Anion Gap 13, BUN 7, Creatinine 0.68 L, Estim Creat Clear Calc 96.46, Est GFR (MDRD) Non-Af 108, BUN/Creatinine Ratio 10.8, Glucose 93, Calcium 9.4, Troponin T High Sens 14, Procalcitonin 0.10 02/21/25 17:35: POC Glucose 92 02/21/25 18:55: Troponin T Hi Sens 2 Hr 13, NT pro BNP II 49 02/21/25 19:15: Lactic Acid 1.3 02/21/25 21:51: Troponin T High Sens 12 D 02/22/25 07:18: WBC 8.6, RBC 4.17 L, Hgb 12.7 L, Hct 37.8 L, MCV 90.6, MCH 30.5, MCHC 33.6, RDW Std Deviation 41.9, RDW Coeff of [place] 12.6, Plt Count 332, MPV 8.8, Immature Gran % (Auto) 0.300, Neut % (Auto) 90.1 H, Lymph % (Auto) 7.5 L, Patrick % (Auto) 2.0, Eos % (Auto) 0.0, Baso % (Auto) 0.1, Absolute Neuts (auto) 7.7, Absolute Lymphs (auto) 0.64 L, Nucleated RBC % 0, Sodium 140, Potassium 4.6, Chloride 104, Carbon Dioxide 25.4, Anion Gap 11, BUN 8, Creatinine 0.51 L, Estim Creat Clear Calc 128.61, Est GFR (MDRD) Non-Af 118, BUN/Creatinine Ratio 16.0, Glucose 134 H, Calcium 9.2, Total Bilirubin 0.16, AST 20, ALT 20, Alkaline Phosphatase 71, Total Protein 6.9, Albumin 3.2 L, Globulin 3.7, Albumin/Globulin Ratio 0.9 Micro: Microbiology 02/21/25 20:50 Mucosa - Nasopharyngeal Respiratory Panel (PCR) - Final Influenzae B ABG Data ABG results: ABG 02/21/25 17:58 Specimen Type BETO Sample Site Not entered VBG pH 7.41 VBG pO2 34 VBG HCO3 35 H VBG Total CO2 37 H VBG O2 Sat (Calc) 65 VBG Base Excess 11 H POC Mix VBG pCO2 Pt Tmp 56.0 H O2 Delivery Device Not entered Radiography Diagnostic Testing: Radiology Impression Chest X-Ray 02/21/25 18:18 IMPRESSION: 1. Bibasilar consolidation and atelectasis. 2. Trace right and small left pleural effusions. Reading Location: [facility] Physical Exam Const alert, oriented x3 and no apparent distress Constitutional Narrative: frail, weak General Appearance: cooperative HEENT normocephalic, head/scalp atraumatic, moist oral mucous membranes and oropharynx normal Eyes EOMs intact bilaterally Neck supple and no JVD Lymph Lymphatic: no lymphedema noted Resp Resp Narrative: mildly dminished breath sounds bibasally, mild wheezing and crackles bilaterally. On 3L of oxygen. Cardio regular rate, regular rhythm, S1 normal heart sound, S2 normal heart sound and no murmurs GI normal to inspection, nondistended, normoactive bowel sounds, soft to palpation, non-tender and non-distended Extremity normal capillary refill, no clubbing, cyanosis or edema and no calf tenderness General Extremity: no tenderness to palpation of joints or extremities Skin General Skin Exam: no breakdown and turgor normal Neuro no focal motor deficits and no sensory deficits noted Motor Exam: general weakness Psych thought process normal and cooperative Appearance: appropriate Assessment & Plan Assessment/Plan (1) Pneumonia: (2) COPD (chronic obstructive pulmonary disease): (3) Flu: PLAN: Plan #Hypoxia in the setting of chronic respiratory failure due to pneumonia and acute influenza B infection as well as COPD exacerbation Currently on IV ceftriaxone and azithromycin. On his baseline 3 L of oxygen. Will add on Tamiflu. Breathing treatments bronchodilators. Sputum cultures pending. Urine for strep and Legionella negative. Titrate oxygen to maintain saturation above 90%. Breathing treatments bronchodilators. #History of brain aneurysm: S/p clipping x 2 remotely. Stable. #Hypertension: On Lasix. IV hydralazine as needed #Anxiety and depression: BuSpar. #GERD: On PPI DVT prophylaxis: Lovenox Charges/Coding Visit Charges Inpatient E&M: 74022 Subs Hosp L2
--- NOTE | 2025-02-22 11:09 | CASEMGMT ---
See previous ED SW note. Per the hospitalist, the pt may DC tomorrow at the earliest. JALEEL MCNEIL to the pt room at this time to discuss DC planning. Pt is sitting up and in the chair and is calm. This RN CM inquired about HHC with the pt. Pt reports that he is indep. Pt reports that they have a protective dog at home and that his is able to help care for him. Therefore, HHC is not warranted. Pt also reports that he has home oxygen through [employer]. Cannot verify current orders due to the DME company being closed. Pt states that he wears 2.5 L at home and that his can bring in portability at the time of DC. Pt states that he feels more than safe returning home with his without any further or additional needs. Pt denies further questions or concerns at this time.
[2025-02-22] MEDS: Azithromycin 500 MG in 0.9% Normal Saline (250mL Bag) 250 ML 255 MG IV (18:52)
[2025-02-23] VITALS (10 sets, daily range): BP systolic 155–156; BP diastolic 82–94; PULSE 80–101; RESP 18–24; TEMP 36.6–37.1; O2SAT 88–98; BMI 24.4; BMI 24.5
[2025-02-23] MEDS: 0.9% Saline Lock 10 ML Syringe IV ×2 (06:19→21:42)
[2025-02-23 07:08] LABS: Hematocrit 41.2 % (40-54); Hemoglobin 13.8 g/dL (13.0-16.5); Immature Granulocytes Count 0.070 X10^3/uL (0.0-0.0); Mean Corp Hgb Conc 33.5 g/dL (32-36); Mean Corpuscular Volume 90.4 fL (80-94); Mean Platelet Vol. 8.7 fl (6.2-12.0); NRBC Flagged by Analyzer 0 % (0-5); Platelet Count 377 K/mm3 (150-450); RBC Distribution Width CV 12.7 % (11.6-14.6); RBC Distribution Width SD 42.2 fl (35.1-43.9); Red Blood Count 4.56 M/mm3 (4.6-6.2); White Blood Count 18.2 K/mm3 (4.4-11.0)
[2025-02-23 07:36] LABS: Anion Gap 9 (5-15); BUN 11 mg/dL (4-19); BUN/Creat Ratio 16.2 RATIO (10-20); Calcium,Total 9.9 mg/dL (7.6-11.0); Carbon Dioxide 30.0 mmol/L (21.0-32.0); Chloride 101 mmol/L (98-108); Estimated Creatinine Clearance 96.46 ml/min (50-250); Glucose 154 mg/dL (70-99); Potassium 4.6 mmol/L (3.3-5.1)
[2025-02-23] MEDS: Aspirin E.C. 81 MG Tablet PO (09:51)
--- NOTE | 2025-02-23 12:17 | PN_ITS ---
Subjective Subjective Patient seen and examined with his nurse by his bedside. He is quite anxious. He denied any shortness of breath, though he remains on his baseline 2.5L of oxygen. Review of systems is otherwise negative. Objective Data Objective Data Vital Signs: Vital Signs Temp Pulse Resp BP Pulse Ox O2 Del Method O2 Flow Rate 98.7 F 101 H 18 156/82 H 98 Nasal Cannula 2.5 02/23/25 06:30 02/23/25 06:30 02/23/25 06:30 02/23/25 06:30 02/23/25 10:00 02/23/25 10:00 02/23/25 10:00 FiO2 30 02/21/25 19:30 Oxygen Flow Rate (L/min) 2.5 Oxygen Delivery Method Nasal Cannula Weight: 138 lb 3.677 oz Body Mass Index (BMI) 24.5 Intake & Output: Intake and Output for Last 24 Hours 02/21/25 02/22/25 02/23/25 23:59 23:59 23:59 Intake Total 300 / 300 1305 / 1305 750 / 750 Output Total 700 / 700 Balance 300 / 300 1305 / 1305 50 / 50 Lab / Micro Data 02/23/25 06:54 02/23/25 06:54 Labs: Laboratory Results - last 24 hr 02/23/25 06:54: WBC 18.2 H, RBC 4.56 L, Hgb 13.8, Hct 41.2, MCV 90.4, MCH 30.3, MCHC 33.5, RDW Std Deviation 42.2, RDW Coeff of [place] 12.7, Plt Count 377, MPV 8.7, Immature Gran % (Auto) 0.400, Neut % (Auto) 86.2 H, Lymph % (Auto) 8.0 L, [place] % (Auto) 5.3, Eos % (Auto) 0.0, Baso % (Auto) 0.1, Absolute Neuts (auto) 15.7 H, Absolute Lymphs (auto) 1.45, Nucleated RBC % 0, Sodium 141, Potassium 4.6, Chloride 101, Carbon Dioxide 30.0, Anion Gap 9, BUN 11, Creatinine 0.68 L, Estim Creat Clear Calc 96.46, Est GFR (MDRD) Non-Af 108, BUN/Creatinine Ratio 16.2, Glucose 154 H, Calcium 9.9 Micro: Microbiology 02/22/25 21:00 Urine, Clean Catch Legionella Antigen - Final 02/22/25 21:00 Urine, Clean Catch Streptococcus pneumoniae Antigen (M - Final 02/21/25 20:50 Mucosa - Nasopharyngeal Respiratory Panel (PCR) - Final Influenzae B Physical Exam Const alert, oriented x3 and no apparent distress Constitutional Narrative: frail, weak General Appearance: cooperative HEENT normocephalic, head/scalp atraumatic, moist oral mucous membranes and oropharynx normal Eyes EOMs intact bilaterally Neck supple and no JVD Lymph Lymphatic: no lymphedema noted Resp Resp Narrative: mildly dminished breath sounds bibasally, mild wheezing and crackles bilaterally. On 2.5L of oxygen. Cardio regular rate, regular rhythm, S1 normal heart sound, S2 normal heart sound and no murmurs GI normal to inspection, nondistended, normoactive bowel sounds, soft to palpation, non-tender and non-distended Extremity normal capillary refill, no clubbing, cyanosis or edema and no calf tenderness General Extremity: no tenderness to palpation of joints or extremities Skin General Skin Exam: no breakdown and turgor normal Neuro no focal motor deficits and no sensory deficits noted Motor Exam: general weakness Psych thought process normal and cooperative Appearance: appropriate Assessment & Plan Assessment/Plan (1) Pneumonia: (2) COPD (chronic obstructive pulmonary disease): (3) Flu: PLAN: Plan #Hypoxia in the setting of chronic respiratory failure due to pneumonia and acute influenza B infection as well as COPD exacerbation * Currently on IV ceftriaxone and azithromycin. also on tamiflu. ON 2.5L of oxygen; usually wears 3L at home. * Breathing treatments bronchodilators. Sputum cultures pending. Urine for strep and Legionella negative. * Titrate oxygen to maintain saturation above 90%. Breathing treatments bronchodilators. * started on IV solumedrol yesterday due to wheezing. * blood and sputum cultures pending. * #Leucocytosis: likely due to IV solumedrol. WBC up to 18 today. Will monitor. #History of brain aneurysm: S/p clipping x 2 remotely. Stable. #Hypertension: On Lasix. IV hydralazine as needed #Anxiety and depression: BuSpar. #GERD: On PPI DVT prophylaxis: Lovenox * Charges/Coding Visit Charges Inpatient E&M: 11428 Subs Hosp L2
[2025-02-23] MEDS: Azithromycin 500 MG in 0.9% Normal Saline (250mL Bag) 250 ML 255 MG IV (18:18)
[2025-02-24 03:30] VITALS: BP 165/95; PULSE 95; RESP 18; TEMP 36.3; O2SAT 96
[2025-02-24 05:05] VITALS: BMI 24.2
[2025-02-24] MEDS: 0.9% Saline Lock 10 ML Syringe IV (05:49)
[2025-02-24 05:59] LABS: Hematocrit 40.3 % (40-54); Hemoglobin 13.5 g/dL (13.0-16.5); Immature Granulocytes Count 0.040 X10^3/uL (0.0-0.0); Mean Corp Hgb Conc 33.5 g/dL (32-36); Mean Corpuscular Volume 90.6 fL (80-94); Mean Platelet Vol. 8.8 fl (6.2-12.0); NRBC Flagged by Analyzer 0 % (0-5); Platelet Count 359 K/mm3 (150-450); RBC Distribution Width CV 12.6 % (11.6-14.6); RBC Distribution Width SD 41.6 fl (35.1-43.9); Red Blood Count 4.45 M/mm3 (4.6-6.2); White Blood Count 14.4 K/mm3 (4.4-11.0)
[2025-02-24 06:15] LABS: Anion Gap 9 (5-15); BUN 13 mg/dL (4-19); BUN/Creat Ratio 19.0 RATIO (10-20); Calcium,Total 9.4 mg/dL (7.6-11.0); Carbon Dioxide 30.6 mmol/L (21.0-32.0); Chloride 100 mmol/L (98-108); Estimated Creatinine Clearance 95.06 ml/min (50-250); Glucose 128 mg/dL (70-99); Potassium 4.7 mmol/L (3.3-5.1)
[2025-02-24 07:50] VITALS: PULSE 86; RESP 18; O2SAT 95
[2025-02-24 10:07] VITALS: BP 152/74; PULSE 90; RESP 18; TEMP 36.7; O2SAT 97
[2025-02-24] MEDS: Aspirin E.C. 81 MG Tablet PO (10:10)
[2025-02-24 10:44] VITALS: O2SAT 92; O2SAT 95
[2025-02-24 11:14] VITALS: PULSE 89; RESP 18
--- NOTE | 2025-02-24 12:38 | DCINST_ITS ---
Discharge Instructions DC O2, CPAP, BIPAP needs Home O2 Discharge instructions: No Dressing / Incision Discharge Activity: Return to Normal Activity Dressing / Incision Call your doctor if you observe: Fever of 101 or Higher, Shortness of breath, Dizziness, Fainting spells, Swelling in the ankles, Chest pain and Increased palpitations (irregular heartbeat) Follow Up Care Test Results: Test results from this visit will be discussed in further detail at your follow- up appointment, if applicable. Discharge Plan Admission Admit Date/Time: 02/21/25 19:58 Attending Provider: Mango Way Primary Care Provider: Ata Avelar Consulting Providers: Lynn Duke; Michelle Wilkerson Instructions Additional Instructions / Restrictions: Continue with your home oxygen requirements of 2 L nasal cannula continuous Discharge Orders/Prescriptions Prescriptions: New oseltamivir 75 mg Capsule 75 mg PO BID Qty: 5 0RF prednisone 10 mg tablet 10 mg PO DAILY Qty: 32 0RF Rx Instructions: Take 4 tablets daily for 3 days then 3 tablets daily for 3 days then 2 tablets daily for 3 days then 1 tablet daily for 3 days then half tablet daily for 4 days cefdinir 300 mg capsule 300 mg PO BID Qty: 6 0RF Continued albuterol sulfate [Ventolin HFA] 1 INHALER inhaler 1 puff inhalation Q6H PRN PRN (Reason: Cough) multivitamin 1 EACH tablet 1 ea PO DAILY mv-min-vit C-Glu-Talia [id number] 1 EACH tablet,chewable 1 ea PO DAILY trazodone 50 mg tablet 50 mg PO QHS pantoprazole 40 mg tablet,delayed release (DR/EC) 40 mg PO DAILY Trelegy Ellipta 200-62.5-25 mcg blister with device 1 ea inhalation DAILY budesonide 0.5 mg/2 mL suspension for nebulization 0.5 mg inhalation Q12H PRN (Reason: sob) Patient Comments: PLEASE SEE ATTACHED FOR DETAILED DIRECTIONS ipratropium-albuterol 0.5 mg-3 mg(2.5 mg base)/3 mL solution for nebulization 3 ml inhalation Q6H PRN PRN (Reason: wheezing) benzonatate 100 mg capsule 100 mg PO TID PRN PRN (Reason: cough) loratadine 10 mg capsule 10 mg PO DAILY aspirin 81 mg tablet 81 mg PO DAILY (DME) OXYGEN - Supplemental ([facility] INFORMATIONAL USE ONLY) Gas See Rx Instructions .ROUTE Patient Comments: 2-3l Rx Instructions: As directed buspirone 10 mg tablet 10 mg PO BID montelukast 10 mg tablet 10 mg PO QHS guaifenesin 1,200 MG tablet 1,200 mg PO BID 7 Days Qty: 14 0RF Patient Comments: takes 1200mg in AM, 600 mg in PM furosemide [Lasix] 20 mg tablet 20 mg PO DAILY 14 Days Qty: 14 0RF Discontinued levofloxacin 500 mg tablet 500 mg PO DAILY 5 Days Qty: 5 0RF Referrals / Follow Up: Ata Avelar MD [Primary Care Provider] - Within 1 Week Disposition Disposition (needs filled in before D/C Order can be placed): Home, Self Care
--- NOTE | 2025-02-24 12:51 | DS.PCM_ITS ---
Providers Date of Admission: 02/21/25 Primary Care Physician: Dr. Ata Avelar MD Reason For Visit: BL BNA COPD EXACERBATION ACUTE RESPIRATORY FAILURE Diagnosis Discharge Diagnosis (1) Pneumonia: Status: Acute Code(s): J18.9 - Pneumonia, unspecified organism (2) COPD (chronic obstructive pulmonary disease): Status: Chronic Code(s): J44.9 - Chronic obstructive pulmonary disease, unspecified (3) Flu: Status: Acute Code(s): J11.1 - Influenza due to unidentified influenza virus with other respiratory manifestations Medications at Discharge Home Medications albuterol sulfate 90 mcg/actuation aerosol inhaler (Ventolin HFA) 1 puff inhalation Q6H PRN PRN Cough 01/05/16 multivitamin 1 ea PO DAILY supplement 08/25/19 mv-min-vit [id number] nereida-herb #124 250 mg-12.5 mg chewable tablet 1 ea PO DAILY supplement 08/25/19 buspirone 10 mg tablet 10 mg PO BID anxiety 07/20/24 montelukast 10 mg tablet 10 mg PO QHS Pulmonary 07/20/24 furosemide 20 mg tablet (Lasix) 20 mg PO DAILY 2 weeks #14 tabs 07/22/24 guaifenesin 1,200 mg tablet, extended release 12 hr 1,200 mg PO BID thins secretions 7 days #14 tabs 07/22/24 aspirin 81 mg tablet 81 mg PO DAILY 02/21/25 benzonatate 100 mg capsule 100 mg PO TID PRN PRN cough 02/21/25 budesonide 0.5 mg/2 mL suspension for nebulization 0.5 mg inhalation Q12H PRN sob 02/21/25 fluticasone fur. 200 mcg-umeclid 62.5 mcg-vilant 25 mcg inhalat.powder (Trelegy Ellipta) 1 ea inhalation DAILY 02/21/25 ipratropium 0.5 mg-albuterol 3 mg (2.5 mg base)/3 mL nebulization soln 3 ml inhalation Q6H PRN PRN wheezing 02/21/25 loratadine 10 mg capsule 10 mg PO DAILY 02/21/25 pantoprazole 40 mg tablet,delayed release 40 mg PO DAILY 02/21/25 trazodone 50 mg tablet 50 mg PO QHS 02/21/25 OXYGEN - Supplemental ([facility] INFORMATIONAL USE ONLY) 02/22/25 cefdinir 300 mg capsule 300 mg PO BID #6 caps 02/24/25 oseltamivir 75 mg capsule 75 mg PO BID #5 caps 02/24/25 prednisone 10 mg tablet 10 mg PO DAILY #32 tabs 02/24/25 Hospital Course Operations None Procedures None Summary of Care Provided Minutes Spent on Discharge: 33 Hospital Course: Per HPI: The patient is a 59 y/o M w/ PMHx: Hx Brain Aneurysm s/p clipping x 2, Chronic hypoxic respiratory failure (2.5 to 3 L NC) with COPD with allergic rhinitis, Anxiety and Depression, HTN, GERD, Former tobacco use who presents to the [facility] ED on 02/21/2025 with history of progressively worsening dyspnea, wheezing, mildly productive cough over the last several days and given worsened status prompted urgent care initially however he had significant tachycardia and hypoxia prompting referral to the ED immediately. He notes that his has not been ill. Workup in the ED included T98.2, heart rate 102, BP 170/96, respiratory rate 22, 92% on 2 L nasal cannula eventually placed on BiPAP given significant work of breathing and respiratory distress noted to be 97% on 30% FiO2 with most recent repeat vitals T98.5, heart rate 89, BP 138/92, respiratory rate 25, 97% on 30% FiO2 BiPAP, CBC with WBC 13.2, hemoglobin 14.2, platelet 341 with left shift, VBG with bicarb 35, total CO2 37, O2 65%, mixed VBG pCO2 56, BMP with BUN/creatinine 7/0.68, GFR 108, lactic acid 1.3, troponin initial 14 with repeat delta 13, NT proBNP II 49, EKG with sinus rhythm with no acute evidence of ischemia, chest x-ray with bibasilar consolidation and atelectasis with trace right and small left pleural effusion, blood culture x 2 and full respiratory panel pending per ED. In the ED patient ministered Solu-Medrol 125 mg IV x 1, lorazepam 0.5 mg IV x 1 administered secondary to anxiety with BiPAP, DuoNeb therapy, azithromycin 500 mg IV x 1, Rocephin 1 g IV x 1. Hospital Course: 1. Acute COPD exacerbation secondary to influenza B and possible bacterial pneumonia with acute on chronic hypoxic respiratory failure?59-year-old male with a history of chronic hypoxic respiratory failure on 2 to 3 L nasal cannula at baseline at home presented to the hospital with acute hypoxia and respiratory distress requiring BiPAP in the emergency room. Treatment eventually allowed him to come off of BiPAP and resume his home oxygen requirements. He was placed on IV steroids as well as azithromycin and Rocephin. He did test positive for influenza B and was started on Tamiflu. He has completed 5 doses of Tamiflu and is feeling much better today. He did have ambulatory pulse ox that demonstrated 2 L at rest and 2 L with ambulation. I have reviewed the oxygen testing, and this patient qualifies for the home equipment and portability. The patient is mobile in the home and the community. I discussed with him the plan for discharge today and he expressed understanding of the risks and benefits of going home and would like to go home today. Will continue with the steroid taper on discharge, he completed 3 doses of azithromycin and will complete 5 more doses of Tamiflu and 5 more doses of cefdinir 300 mg p.o. twice daily. I recommend that he follow-up with his primary care doctor in 3 to 5 days after discharge. 2. History of brain aneurysm, essential hypertension, anxiety, depression, GERD are all chronic medical conditions which complicate his care. His home medications were continued where appropriate Physical Exam Narrative General: Alert, Oriented x3, Cooperative, No apparent distress HEENT: Atraumatic, PERRLA, EOMI, Normocephalic Oral: Moist Mucosa Neck: Supple, No JVD Lungs: Diminished, poor air movement, No rhonchi, No wheeze, No rales Cardiovascular: Regular rate, Regular Rhythm, Normal S1, Normal S2, No murmurs Abdomen: Soft, Non Tender, Non-Distended, No Hepato-splenomegaly Extremities: No edema, Capillary Refill Less than 3 Seconds Skin: No rashes, No breakdown Musculoskeletal: No Tenderness to Palpation of Joints or Extremities Neurological: No focal neurological deficits, Motor Exam 5/5 strength throughout, Sensory exam intact to light touch and pain Psych/Mental Status: Normal Affect, Appropriate Weight / BMI Weight Weight: 136 lb 14.513 oz Body Mass Index (BMI) 24.2 ABG / Lab / Microbiology Data 02/24/25 05:39 02/24/25 05:39 Laboratory: Laboratory Results - last 24 hr 02/24/25 05:39: WBC 14.4 H, RBC 4.45 L, Hgb 13.5, Hct 40.3, MCV 90.6, MCH 30.3, MCHC 33.5, RDW Std Deviation 41.6, RDW Coeff of [place] 12.6, Plt Count 359, MPV 8.8, Immature Gran % (Auto) 0.300, Neut % (Auto) 86.2 H, Lymph % (Auto) 8.6 L, [place] % (Auto) 4.8, Eos % (Auto) 0.0, Baso % (Auto) 0.1, Absolute Neuts (auto) 12.5 H, Absolute Lymphs (auto) 1.24, Nucleated RBC % 0, Sodium 140, Potassium 4.7, Chloride 100, Carbon Dioxide 30.6, Anion Gap 9, BUN 13, Creatinine 0.69 L, Estim Creat Clear Calc 95.06, Est GFR (MDRD) Non-Af 108, BUN/Creatinine Ratio 19.0, Glucose 128 H, Calcium 9.4 Microbiology: Microbiology 02/21/25 19:55 Blood Culture (Wb) - Right Hand Blood Culture - Preliminary No growth in 48 hours. 02/21/25 19:13 Blood Culture (Wb) - Right Hand Blood Culture - Preliminary No growth in 48 hours. 02/22/25 21:00 Sputum, Expectorated/Coughed Gram Stain - Final 02/22/25 21:00 Sputum, Expectorated/Coughed Respiratory Culture - Preliminary Pseudomonas aeruginosa Staphylococcus aureus 02/22/25 21:00 Urine, Clean Catch Legionella Antigen - Final 02/22/25 21:00 Urine, Clean Catch Streptococcus pneumoniae Antigen (M - Final 02/21/25 20:50 Mucosa - Nasopharyngeal Respiratory Panel (PCR) - Final Influenzae B D/C Instructions Call your doctor if you observe: Fever of 101 or Higher, Shortness of breath, Dizziness, Fainting spells, Swelling in the ankles, Chest pain and Increased palpitations (irregular heartbeat) DC O2, CPAP, BIPAP Needs Home O2 Discharge instructions: No Meaningful Use Info Meaningful Use Meaningful Use Diagnoses (Choose all that apply): None applicable Discharge Plan Admission Admit Date/Time: 02/21/25 19:58 Attending Provider: Mango Way Primary Care Provider: Ata Avelar Consulting Providers: Lynn Duke; Michelle Wilkerson Instructions Additional Instructions / Restrictions: Continue with your home oxygen requirements of 2 L nasal cannula continuous Discharge Orders/Prescriptions Prescriptions: New oseltamivir 75 mg Capsule 75 mg PO BID Qty: 5 0RF prednisone 10 mg tablet 10 mg PO DAILY Qty: 32 0RF Rx Instructions: Take 4 tablets daily for 3 days then 3 tablets daily for 3 days then 2 tablets daily for 3 days then 1 tablet daily for 3 days then half tablet daily for 4 days cefdinir 300 mg capsule 300 mg PO BID Qty: 6 0RF Continued albuterol sulfate [Ventolin HFA] 1 INHALER inhaler 1 puff inhalation Q6H PRN PRN (Reason: Cough) multivitamin 1 EACH tablet 1 ea PO DAILY mv-min-vit C-Glu-Talia [id number] 1 EACH tablet,chewable 1 ea PO DAILY trazodone 50 mg tablet 50 mg PO QHS pantoprazole 40 mg tablet,delayed release (DR/EC) 40 mg PO DAILY Trelegy Ellipta 200-62.5-25 mcg blister with device 1 ea inhalation DAILY budesonide 0.5 mg/2 mL suspension for nebulization 0.5 mg inhalation Q12H PRN (Reason: sob) Patient Comments: PLEASE SEE ATTACHED FOR DETAILED DIRECTIONS ipratropium-albuterol 0.5 mg-3 mg(2.5 mg base)/3 mL solution for nebulization 3 ml inhalation Q6H PRN PRN (Reason: wheezing) benzonatate 100 mg capsule 100 mg PO TID PRN PRN (Reason: cough) loratadine 10 mg capsule 10 mg PO DAILY aspirin 81 mg tablet 81 mg PO DAILY (DME) OXYGEN - Supplemental ([facility] INFORMATIONAL USE ONLY) Gas See Rx Instructions .ROUTE Patient Comments: 2-3l Rx Instructions: As directed buspirone 10 mg tablet 10 mg PO BID montelukast 10 mg tablet 10 mg PO QHS guaifenesin 1,200 MG tablet 1,200 mg PO BID 7 Days Qty: 14 0RF Patient Comments: takes 1200mg in AM, 600 mg in PM furosemide [Lasix] 20 mg tablet 20 mg PO DAILY 14 Days Qty: 14 0RF Discontinued levofloxacin 500 mg tablet 500 mg PO DAILY 5 Days Qty: 5 0RF Referrals / Follow Up: Ata Avelar MD [Primary Care Provider] - Within 1 Week Disposition Disposition (needs filled in before D/C Order can be placed): Home, Self Care Charges/Coding Visit Charges Inpatient E&M: 77601 Disch Hosp >30min
[2025-02-24 13:42] VITALS: BP 133/74; PULSE 95; RESP 18; TEMP 36.4; O2SAT 97
--- NOTE | 2025-02-24 13:42 | CASEMGMT ---
Patient has order for discharge. Patient is maintaining on previous home oxygen orders of 2lpm. RN CM in to discuss needs at discharge. Patient denies further needs or concerns at discharge. Patient had no further questions.
--- NOTE | 2025-02-24 16:10 | CHAPLAIN ---
Type of Pastoral Visit _x__ Initial Visit ___ Follow-up Visit ___ On-call Visit ___ General Patient Visit ___ Spiritual Assessment ___ Family Conference ___ Bereavement ___ Rapid Response ___ Code Blue ___ Other (describe below) Pastoral Care Referral From _x__ Patient ___ Family ___ Nurse ___ Physician ___ Motor Tune Up Specialist ___ Surgery Aid ___ Other (describe below) Sacrament/Intervention _x__ Active listening ___ Anointing ___ Adventism ___ Bereavement ___ Communion _x__ Nikole exploration ___ _x__ Life review _x__ Prayer ___ Reconciliation ___ Sacrament of Sick _x__ Supportive presence ___ Wedding ___ Other (describe below) Pastoral Comments patient is partially standing to do some tasks and he finds that position helpful; pt begins by speaking of family and what they believe; pt talks about his experience and what he missed over the weekend being in the hospital; pt speaks of his family and the kat of having a granddaughter around who is affectionate; pt finds nikole in God and prayer important; prayer and presence given
== END 2025-02-24 15:15 | disposition home or self-care (01) | DRG 193 ==
LOC: ED 17:09 → PCU 02-22 07:08
PROVIDERS: Physician Assistant; Student in an Organized Health Care Education/Training Program; Admitting Provider Family Medicine; Emergency Provider Emergency Medicine; PCP Family Medicine; Visit Provider Family Medicine
DX: J10.00 Influenza due to other identified influenza virus with unspecified type of pneumonia (principal); J96.21 Acute and chronic respiratory failure with hypoxia; J44.1 Chronic obstructive pulmonary disease with (acute) exacerbation; J44.0 Chronic obstructive pulmonary disease with (acute) lower respiratory infection; I10 Essential (primary) hypertension; K21.9 Gastro-esophageal reflux disease without esophagitis; J15.9 Unspecified bacterial pneumonia; F41.8 Other specified anxiety disorders; J30.9 Allergic rhinitis, unspecified; D72.829 Elevated white blood cell count, unspecified; Z87.891 Personal history of nicotine dependence; Z79.51 Long term (current) use of inhaled steroids; Z79.899 Other long term (current) drug therapy; Z79.82 Long term (current) use of aspirin; T38.0X5A Adverse effect of glucocorticoids and synthetic analogues, initial encounter
CPT/HCPCS: 36415; 71045; 80048; 80053; 82803; 82962; 83605; 83880; 84145; 84484; 85025; 87040; 87070; 87077; 87184; 87186; 87205; 87449; 87633; 93005; 94002; 94640; 94668; 94762; 99252; 99285; A4216; G0463